=== PATIENT | male | born 1960 | race Caucasian/White ===

== ENCOUNTER → 2020-05-14 16:47 | Outpatient (CLI) | payer MEDICARE, MEDICAID, SELFPAY ==
[2020-05-16 15:00] LABS: Covid-19 Nasal PCR Sendout Lex Not Detected
== END ==
PROVIDERS: PCP Family Medicine; Visit Provider Family Medicine
DX: Z03.818 Encounter for observation for suspected exposure to other biological agents ruled out (principal)
CPT/HCPCS: U0004

== ENCOUNTER 2020-05-17 14:49 | Emergency (ER) | payer MEDICARE, MEDICAID, SELFPAY ==
[2020-05-17 14:53] VITALS: BP 133/76; PULSE 110; RESP 18; TEMP 36.6; O2SAT 94; BMI 28.5
--- NOTE | 2020-05-17 15:22 | HMH.EDGENADL ---
ED Disposition Clinical Impression: Community acquired pneumonia Qualifiers: Laterality: left Lung location: lower lobe of lung Qualified Code(s): J18.9 - Pneumonia, unspecified organism Disposition: Home, Self-Care Condition on Discharge: Good Instructions: Pneumonia-Adult Additional Instructions: You were seen on an emergency basis. It is very important that you follow up with your primary care provider and/or specialist as we discussed within 2 days. All labs and imaging were obtained and interpreted here to rule out life threatening emergencies, but your final results should be reviewed by your primary doctor at your follow up appointment. Please return to the emergency department if any of your symptoms worsen, or if they do not improve as we discussed. Prescriptions: Doxycycline Hyclate [Doxycycline 100mg Capsule] 100 mg PO BID 10 Days #20 cap Prescription Printed Referrals: Annalise Carter [Primary Care Provider] - - Critical Care Critical Care Time: No Attestation: On 05/17/20, the high probability of a clinically significant, sudden or life threatening deterioration of the following system(s) required my full and direct attention, intervention and personal management. The time I documented below is in addition to time spent performing reported procedures but includes the following listed in this critical care notation. Medical Decision Making - Medical Records Medical records reviewed: Yes: I reviewed the patient's medical records. - Elliott Inquiry Pt receiving controlled substance: No Vital Signs: 05/17/20 14:53 Temperature 97.8 F Temperature Source Oral Pulse Rate [Right Radial] 110 H Respiratory Rate 18 Blood Pressure [Right Arm] 133/76 Blood Pressure Mean [Right Arm] 95 Blood Pressure Source [Right Arm] Automatic Cuff Blood Pressure Position [Right Arm] Sitting 02 Sat by Pulse Oximetry 94 L Oxygen Delivery Method Room Air - Lab Data Lab results reviewed: Yes: I reviewed the patient's lab results. Lab Results 05/17/20 15:13: Urine Color Yellow, Urine Appearance Clear, Urine pH 6.0, Ur Specific Flasher 1.025, Urine Protein Negative, Urine Glucose (UA) 3+, Urine Ketones 1+, Urine Blood Negative, Urine Nitrate Negative, Urine Bilirubin Negative, Urine Urobilinogen 1.0, Ur Leukocyte Esterase Negative, Urine RBC None, Urine WBC None, Ur Squamous Epith Cells Occasional, Amorphous Sediment Trace, Urine Bacteria None 05/17/20 15:40: WBC 5.6, RBC 4.77, Hgb 14.8, Hct 43.0, MCV 90.2, MCH 31.0, MCHC 34.4, RDW 13.4, Plt Count 211, MPV 8.0, Neut % (Auto) 74.2, Lymph % (Auto) 17.5, [place] % (Auto) 5.5, Eos % (Auto) 1.9, Baso % (Auto) 0.8, Neut # (Auto) 4.1, Lymph # (Auto) 1.0, [place] # (Auto) 0.3, Eos # (Auto) 0.1, Baso # (Auto) 0.0 05/17/20 15:40: Sodium 139, Potassium 4.0, Chloride 103, Carbon Dioxide 24, Anion Gap 16.0 H, BUN 14, Creatinine 0.90, Estimated Creat Clear 110, Estimated GFR 86, Est GFR ( Amer) 104, Glucose 146 H, Calcium 8.9, Total Bilirubin 0.4, AST 40, ALT 60, Alkaline Phosphatase 94, Total Protein 7.4, Albumin 4.1, Globulin 3.3 H, Albumin/Globulin Ratio 1.2 05/17/20 15:40: Influenza Type A Ag Negative, Influenza Type B Ag Negative 05/17/20 15:40: Group A Strep Rapid Negative Result diagrams: 05/17/20 15:40 05/17/20 15:40 Orders (Tests/Meds): ED MEDICATIONS Discontinued Medications Generic Name Dose Route Start Last Admin Trade Name Freq PRN Reason Stop Dose Admin Lactated Ringer's 500 mls @ 999 mls/hr 05/17/20 15:28 05/17/20 15:47 Lactated Ringer's 1000 Ml Bag IV 05/17/20 15:58 999 mls/hr .Q31M ONE Administration ORDERS Category Date Time Status Covid-19 Nasal PCR Sendout Eric Stat Lab 05/17/20 15:40 Received Strep Screen Confirmation Stat Micro 05/17/20 15:40 Received Medical Decision Narrative: 59-year-old male presenting with malaise, cough, fever. Nontoxic, afebrile here, hemodynamically stable. Was tachycardic on arrival but responsive
[2020-05-17 15:31] LABS: Microscopic, Urine URINE MICROSCOPIC (MICROSCOPIC)
[2020-05-17 15:34] LABS: Appearance,Urine CLEAR (Clear); Bilirubin,Urine Negative (Negative); Blood, Urine Negative (Negative); Color,Urine YELLOW (Yellow); Glucose,Urine (UA) 3+ (Negative); Ketones,Urine 1+ (Negative); Leukocyte Esterase,Urine Negative (Negative); Nitrate,Urine Negative (Negative); Protein,Urine Negative (Negative); Specific Gravity, Urine 1.025 (1.005-1.030)
[2020-05-17 15:40] LABS: Amorphous Sediment,Urine Trace /lpf; Squamous Epithelial Cell,Urine Occasional #/hpf (0-5)
--- NOTE | 2020-05-17 16:04 | XR_ITS ---
PROCEDURE: XR CHEST PORTABLE CLINICAL HISTORY: covid rule out COMPARISON: No exams were available for comparison FINDINGS: A. there is a somewhat subtle hazy opacity left perihilar region and partially silhouetting the left heart border. A minimal infiltrate left perihilar region and lingula cannot be entirely excluded. Would be helpful to have a follow-up of PA and lateral chest if possible for better evaluation. The left upper lung field and right lung rosado are clear. There is borderline cardiomegaly however is no pulmonary congestion and there is no pleural fluid. 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 IMPRESSION: Possible left perihilar and or lingular infiltrate versus atelectasis consider a follow-up PA and lateral chest for better evaluation Dictated by: Dr. Tarik Cochran MD 05/17/2020 16:54 Dr. Tarik Cochran MD in [place] 05/17/2020 16:54
[2020-05-17 16:41] LABS: Basophils % 0.8 % (0.1-2.0); Eosinophils # 0.1 K/mm3 (0.0-0.4); Eosinophils % 1.9 % (0.1-12.0); Hemoglobin 14.8 g/dL (14.1-18.0); Lymphocytes % 17.5 % (10-50); Mean Corpuscular HGB Conc 34.4 g/dL (31.8-35.4); Mean Corpuscular Volume 90.2 fl (80-94); Monocytes # 0.3 K/mm3 (0.1-1.0); Monocytes % 5.5 % (1.7-9.3); Neutrophils # 4.1 K/mm3 (1.8-7.8); Neutrophils % 74.2 % (37.0-80.0); Platelet Count 211 K/mm3 (142-424); Red Blood Count 4.77 M/mm3 (4.60-6.20); Red Cell Distribution Width 13.4 % (11.5-17.5); White Blood Count 5.6 K/mm3 (4.8-10.8)
[2020-05-17 16:42] LABS: Chloride 103 mmol/L (98-107)
[2020-05-17 16:43] LABS: Sodium 139 mmol/L (136-145)
[2020-05-17 16:45] LABS: Alanine Aminotransferase 60 U/L (12-78); Alkaline Phosphatase 94 U/L (38-126); Aspartate Amino Transferase 40 U/L (17-59); Bilirubin,Total 0.4 mg/dl (0.2-1.3); Blood Urea Nitrogen 14 mg/dl (9-20); Creatinine Clearance Estimated 110 mL/min (50-200); Estimated Glomerular Filt Rate 86 ml/min (>60); GFR (African American) 104 ML/MIN (>60); Strep Scrn Group A (Rapid) Negative (Negative)
[2020-05-17 16:46] LABS: Albumin Level 4.1 g/dl (3.5-5.0); Albumin/Globulin Ratio 1.2 (1.1-1.8); Calcium 8.9 mg/dl (8.4-10.2); Carbon Dioxide 24 mmol/L (22.0-30.0); Globulin 3.3 g/dL (1.3-3.2); Glucose 146 mg/dl (74-100); Total Protein,Serum 7.4 g/dl (6.3-8.2)
[2020-05-17 17:08] VITALS: BP 121/73; PULSE 74; RESP 18; TEMP 36.8; O2SAT 97
[2020-05-19 13:21] LABS: Covid-19 Nasal PCR Sendout Lex Positive
--- NOTE | 2020-05-19 13:26 | PC.NURSE ---
attempted to call pt, no answer, voicemail left.
== END 2020-05-17 17:12 | disposition home or self-care (01) ==
PROVIDERS: Emergency Provider Physician Assistant; PCP Family Medicine
DX: J18.9 Pneumonia, unspecified organism (principal); U07.1 COVID-19; I25.10 Atherosclerotic heart disease of native coronary artery without angina pectoris; E11.9 Type 2 diabetes mellitus without complications; Z88.5 Allergy status to narcotic agent; Z79.899 Other long term (current) drug therapy
CPT/HCPCS: 71045; 80053; 81001; 85025; 87275; 87276; 87430; 96365; 99283; U0004

== ENCOUNTER 2020-11-07 10:43 | Emergency (ER) | payer MEDICARE, SELFPAY ==
[2020-11-07 10:50] VITALS: BP 113/61; PULSE 67; RESP 20; TEMP 36.9; O2SAT 97; BMI 31.0
[2020-11-07 11:23] LABS: UTC Influenza A Antigen Negative (Negative)
[2020-11-07 11:24] LABS: UTC Influenza B Antigen Negative (Negative)
--- NOTE | 2020-11-07 11:25 | HMH.EDUTC ---
[facility] [place] Disposition Clinical Impression: COVID-19 virus test result unknown Disposition: Home, Self-Care Condition on Discharge: Good Instructions: DI for COVID-19 (Suspected or Confirmed ), Preventing the Spread of Coronavirus Discharge Instructions Additional Instructions: No sign of a bacterial infection. Likely viral. Viruses can take 7-14 days to run their course. Nasal saline and bulb syringe or nose Jess to remove nasal drainage to help with nasal congestion. Hard to eat, drink, sleep with nasal congestion so important to keep this cleaned out. Monitor temp. Tylenol or Motrin as needed for pain or fever Encourage fluids, water, Gatorade, Powerade, Pedialyte if infant/toddler/child Warm salt water gargles Warm fluids Sore throat lozenges Sleep elevated Humidifier/vaporizer Your covid swab was sent. Be sure you follow-up in 2-3 days if no improvement so we can review the results and treat if necessary Follow-up immediately for new or worsening symptoms or no noticeable improvement over the next 48-72 hours. Referrals: Annalise Carter [Primary Care Provider] - Time of Disposition: 11:34 Medical Decision Making - Elliott Inquiry Pt receiving controlled substance: No Vital Signs: 11/07/20 10:50 Temperature 98.5 F Temperature Source Oral Pulse Rate [Right Brachial] 67 Respiratory Rate 20 Blood Pressure [Right Arm] 113/61 Blood Pressure Mean [Right Arm] 78 Blood Pressure Source [Right Arm] Automatic Cuff Blood Pressure Position [Right Arm] Sitting 02 Sat by Pulse Oximetry 97 Oxygen Delivery Method Room Air - Lab Data Lab Results 11/07/20 11:10: Influenza Type A Ag Negative, Influenza Type B Ag Negative Orders (Tests/Meds): ORDERS Category Date Time Status Covid-19 Nasal PCR ([facility]) Routine Lab 11/07/20 11:00 Received [facility] [place] HPI - General Chief complaint: [facility] Stated complaint: headache,fever,cough,chills,achey Time Seen by Provider: 11/07/20 11:25 Mode of Arrival: Ambulatory Source of Information: Patient Limitations: No Limitations Description of Symptoms (Recalled from Triage Doc. by RN): PATIENT C/O CHILLS, FEVER, BODY ACHES, AND HEADACHE X 4-5 DAYS. STATES HE HAD COVID IN 2019 HEENT Symptoms (Recalled from RN notes): Yes Resp Symptoms (Recalled from RN notes): No Skin Symptoms (Recalled from RN notes): No MS Symptoms (Recalled from RN notes): No Functional Status (Recalled from RN notes): WNL - History of Present Illness Provider Complaint: 59 yr old male presents for cough, clear/yellow nasal drainage, body aches,chills, and upset staomach for 4-5 days. pt states he had covid in may and this feels like the flu. 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/flu - Related Data Home Medications Medication Instructions Recorded Confirmed Aspirin [Aspirin 81mg chewable 81 mg PO DAILY 11/07/20 11/07/20 tab] Atorvastatin Calcium [Lipitor 20mg 20 mg PO HS 11/07/20 11/07/20 Tab] Empagliflozin [Jardiance] 10 mg PO DAILY 11/07/20 11/07/20 Famotidine [Pepcid 20mg Tablet] 20 mg PO DAILY 11/07/20 11/07/20 Tamsulosin HCl [Flomax 0.4mg 0.4 mg PO HS 11/07/20 11/07/20 capsule] Ticagrelor [Brilinta 90mg 90 mg PO BID 11/07/20 11/07/20 Tablet] lisinopriL [Lisinopril 5mg 5 mg PO DAILY 11/07/20 11/07/20 Tablet] Allergies Allergy/AdvReac Type Severity Reaction Status Date / Time morphine Allergy Severe Unknown Verified 05/17/20 15:27 allergy reaction - Worker's Comp Is this a Worker's Comp case?: No [facility] History - Hepatitis A Screen Drug use history?: No High risk sexual behaviors?: No History of sexually transmitted infection?: No Currently employed?: No Childcare worker?: No Do you have indoor plumbing?: Yes Do you have electricity?: Yes Attestation statement:: This patient has been screened for Hepatitis A risk factors. I have reviewed the patient's past medical his
[2020-11-07 11:35] VITALS: BP 113/61; PULSE 67; RESP 20; TEMP 36.9; O2SAT 97
== END 2020-11-07 11:37 | disposition home or self-care (01) ==
PROVIDERS: Emergency Provider Nurse Practitioner Family; PCP Family Medicine
DX: Z20.822 Contact with and (suspected) exposure to COVID-19 (principal); R50.9 Fever, unspecified; R51.9 Headache, unspecified; E11.9 Type 2 diabetes mellitus without complications; Z88.5 Allergy status to narcotic agent; Z79.899 Other long term (current) drug therapy
CPT/HCPCS: G0463; 87804; 99202; U0003

== ENCOUNTER 2021-09-19 12:25 | Emergency (ER) | payer MEDICARE, SELFPAY ==
[2021-09-19 14:00] VITALS: BP 133/70; PULSE 81; RESP 19; TEMP 37; O2SAT 97; BMI 33.2
--- NOTE | 2021-09-19 14:11 | HMH.EDUTC ---
[facility] [place] Disposition Clinical Impression: COVID-19 virus test result unknown Disposition: Home, Self-Care Condition on Discharge: Good Instructions: COVID-19: Testing and Tracing Additional Instructions: covid swab was sent to lab, call tomorrow for results. self isolate until test results are known to be negative No sign of a bacterial infection. Likely viral. Viruses can take 7-14 days to run their course. Nasal saline and bulb syringe or nose Jess to remove nasal drainage to help with nasal congestion. Hard to eat, drink, sleep with nasal congestion so important to keep this cleaned out. Monitor temp. Tylenol or Motrin as needed for pain or fever Encourage fluids, water, Gatorade, Powerade, Pedialyte if /toddler/child Warm salt water gargles Warm fluids Sore throat lozenges Sleep elevated Humidifier/vaporizer Follow-up immediately for new or worsening symptoms or no noticeable improvement over the next 48-72 hours. Referrals: Annalise Carter [Primary Care Provider] - Time of Disposition: 14:13 Medical Decision Making - Elliott Inquiry Pt receiving controlled substance: No Orders (Tests/Meds): ORDERS Category Date Time Status Covid-19 Nasal PCR ([facility]) Routine Lab 09/19/21 14:08 Ordered [facility] [place] HPI - General Chief complaint: Urgent Treatment Center Stated complaint: weakness, cough, h/a, runny nose Time Seen by Provider: 09/19/21 14:11 Mode of Arrival: Ambulatory Source of Information: Patient Limitations: No Limitations - History of Present Illness Provider Complaint: 60 yr old male presents for covid test. pt states he has a runny nose,sore throat, body aches. denies fever. pt states 3 days ago was around someone ill - Related Data Home Medications Medication Instructions Recorded Confirmed Aspirin [Aspirin 81mg chewable 81 mg PO DAILY 11/07/20 11/07/20 tab] Atorvastatin Calcium [Lipitor 20mg 20 mg PO HS 11/07/20 11/07/20 Tab] Empagliflozin [Jardiance] 10 mg PO DAILY 11/07/20 11/07/20 Famotidine [Pepcid 20mg Tablet] 20 mg PO DAILY 11/07/20 11/07/20 Tamsulosin HCl [Flomax 0.4mg 0.4 mg PO HS 11/07/20 11/07/20 capsule] Ticagrelor [Brilinta 90mg 90 mg PO BID 11/07/20 11/07/20 Tablet] lisinopriL [Lisinopril 5mg 5 mg PO DAILY 11/07/20 11/07/20 Tablet] Allergies Allergy/AdvReac Type Severity Reaction Status Date / Time morphine Allergy Severe Unknown Verified 05/17/20 15:27 allergy reaction [facility] History - Hepatitis A Screen Attestation statement:: This patient has been screened for Hepatitis A risk factors. I have reviewed the patient's past medical history: Yes Medical History: Reports:: Cancer, Diabetes Mellitus Type 2 Laterality Cases: Bilateral: Tonsillectomy - Social History Smoking Status: Never smoker Alcohol Intake: never Occupational Status: other ROS Obtained: Yes Systems reviewed as appropriate & no additional complaints - Constitutional Constitutional: Reports system reviewed and no additional complaints, except as docu, Reports body ache, Reports chills, Denies fever(s) - Eyes Eyes: Reports system reviewed and no additional complaints, except as docu, Denies blurry vision - ENT Ears, Nose, Mouth, and Throat: Reports system reviewed and no additional complaints, except as docu, Reports nasal congestion, Reports sore throat - Cardiovascular Cardiovascular: Reports system reviewed and no additional complaints, except as docu, Denies chest pain - Respiratory Respiratory: Reports system reviewed and no additional complaints, except as docu, Denies cough - Gastrointestinal Gastrointestingal: Reports: system reviewed and no additional complaints, except as docu. Denies: diarrhea - Genitourinary Male Genitourinary: Reports system reviewed and no additional complaints, except as docu - Musculoskeletal Musculoskeletal: Reports system reviewed and no additional complaints, except as docu, Denies joint pain - In
[2021-09-19 14:13] VITALS: BP 133/70; PULSE 81; RESP 19; TEMP 37; O2SAT 97
--- NOTE | 2021-09-20 09:24 | PC.NURSE ---
PATIENT NOTIFIED OF POSITIVE COVID RESULT AT THIS TIME
== END 2021-09-19 14:20 | disposition home or self-care (01) ==
PROVIDERS: Emergency Provider Nurse Practitioner Family; PCP Family Medicine
DX: U07.1 COVID-19 (principal); E11.9 Type 2 diabetes mellitus without complications
CPT/HCPCS: G0463; 99202; C9803; U0003; U0005

== ENCOUNTER 2023-11-21 12:41 | Outpatient (RCR) | payer MEDICARE, SELFPAY | END 2024-01-05 14:00 | disposition home or self-care (01) | LOC: PT 12:41 | PROVIDERS: Visit Provider Internal Medicine Cardiovascular Disease | DX: I25.10 Atherosclerotic heart disease of native coronary artery without angina pectoris (principal); Z95.5 Presence of coronary angioplasty implant and graft | CPT/HCPCS: 93798 ==

== ENCOUNTER 2024-05-31 19:57 | Emergency (ER) | payer MEDICARE, SELFPAY ==
[2024-05-31 19:58] VITALS: BP 108/72; PULSE 96; RESP 18; TEMP 37.1; O2SAT 96; BMI 29.2
[2024-05-31 20:57] LABS: Coronavirus 19, PCR Not Detected (NotDetected); Influenza A, PCR Not Detected (NotDetected); Influenza B, PCR Not Detected (NotDetected)
--- NOTE | 2024-05-31 20:59 | ED_ITS ---
Discharge Plan Disposition Patient Disposition: Home, Self-Care Prescriptions Prescriptions: No Action atorvastatin 20 MG tablet 20 mg PO HS famotidine 20 MG tablet 20 mg PO DAILY tamsulosin 0.4 MG capsule 0.4 mg PO HS aspirin 81 MG tablet,chewable 81 mg PO DAILY lisinopril 5 MG tablet 5 mg PO DAILY ticagrelor 90 MG tablet 90 mg PO BID empagliflozin 10 MG tablet 10 mg PO DAILY Patient Comments: TAKE 1 TABLET BY MOUTH EVERY DAY Referrals Follow up/Referrals: Annalise Carter [Primary Care Provider] - See instructions Activity Restrictions/Add. Instructions Additional Instructions/Restrictions: Your symptoms are consistent with a viral syndrome. This would require [id number] medication management and increase fluid intake. You can follow-up the results of your viral swab on [facility] for like to be contacted with the results. Given the length of your symptoms, you would not be eligible for specific COVID or flu medications. Sure that you stay adequately hydrated. Take Tylenol every 6 hours as needed for headache or aches/pains. Please follow up with your primary care provider in 2-3 days. Please return to ED if your symptoms worsen, change in location, change in severity, new symptoms develop or if you become concerned for your health. Clinical Impressions Clinical Impression: Acute viral syndrome Instructions Patient Instructions: DI for Viral Syndrome Print Language Print Language: [place] Discharge ED Provider: Chanelle Aaron General Adult HPI General Chief complaint: Upper Respiratory Infection Stated complaint: body aches, HAINES, weak Time Seen by Provider: 05/31/24 20:12 Mode of Arrival: Ambulatory Source of Information: Patient Limitations: No Limitations Description of Symptoms (Recalled from ER Triage Doc. by RN): Patient reports body aches, dry mouth, and congestion. Patient reports he had a fever approximately 3 days ago but no fever today. Patient reports that he had 2 episodes of soft stool yesterday, but not today. Patient reports a mild cough and home covid test was negative. Patient denies nausea and vomiting. Denies abominal pain. Denies chest pain and shortness of breath. History of Present Illness HPI narrative: Saad Gregg is a 63 y/o male presenting with multiple complaints. Related Data Home Medications ?Medication ?Instructions ?Recorded ?Confirmed aspirin 81 mg chewable tablet 81 mg PO DAILY Heart disease 11/07/20 11/07/20 atorvastatin 20 mg tablet 20 mg PO HS Cholesterol 11/07/20 11/07/20 empagliflozin 10 mg tablet 10 mg PO DAILY Diabetes 11/07/20 11/07/20 famotidine 20 mg tablet 20 mg PO DAILY GERD 11/07/20 11/07/20 lisinopril 5 mg tablet 5 mg PO DAILY Hypertension 11/07/20 11/07/20 tamsulosin 0.4 mg capsule 0.4 mg PO HS PROSTATE 11/07/20 11/07/20 ticagrelor 90 mg tablet 90 mg PO BID Heart disease 11/07/20 11/07/20 Allergies Allergy/AdvReac Type Severity Reaction Status Date / Time morphine Allergy Severe Unknown Verified 05/17/20 15:27 allergy reaction [facility] Disclaimer: The information contained in this section may have been updated after the patient was seen, as this information can be updated by other users. Social History Smoking Status: Never smoker alcohol intake: never current occupational status: other Travel in the last 8 weeks: None ROS Obtained: Yes All systems reviewed & no additional complaints except as documented Physical Exam General General appearance: alert and in no apparent distress Head Head exam: atraumatic Eye Eye exam: Present EOMI; Absent scleral icterus Respiratory Respiratory exam: Present normal lung sounds bilaterally Cardiovascular Cardiovascular exam: Present regular rate and normal rhythm Abdominal Exam Abdominal exam: Present soft; Absent distention or tenderness Extremities Exam Extremities exam: Present full ROM; Absent tenderness or edema Neurological Exam Neurological exam: Present alert and oriented X3 Skin Skin exam: Present warm and dry Medical Decision Making Medical Records Screening: Per USPSTF and CDC recommendations, given the prevalence of disease in our region, it is our hospital?s policy to screen for HIV and viral Hepatitis for all patients aged 18 and over and those with ongoing risk factors. Elliott Inquiry Pt receiving controlled substance: No Vital Signs: 05/31/24 19:58 05/31/24 21:00 05/31/24 21:39 Temperature 98.7 F 98.5 F Temperature Source Oral Oral Pulse Rate 97 H 92 H Pulse Rate [Left Radial] 96 H Respiratory Rate 18 17 Blood Pressure 118/68 119/76 Blood Pressure [Right Arm] 108/72 L Blood Pressure Mean [Right Arm] 84 Blood Pressure Source Automatic Cuff Blood Pressure Source [Right Arm] Automatic Cuff Blood Pressure Position Sitting 02 Sat by Pulse Oximetry 96 91 L Oxygen Delivery Method Room Air Room Air Lab Data Lab Results 05/31/24 20:45: SARS-CoV-2 (PCR) Not detected, Influenza A Untype (PCR) Not detected, Influenza Type B (PCR) Not detected Orders (Tests/Meds): ORDERS Category Date Time Status Rapid PCR Covid and Flu A/B Stat Lab 05/31/24 20:45 Completed Medical Decision Narrative: Patient is a 63-year-old male who presents with multiple complaints. Differential diagnosis includes was not limited to, viral syndrome, pneumonia, COPD, electrolyte abnormality, among others. Patient's history and physical exam most consistent with acute viral syndrome. Patient's vital signs are within normal limits and his physical exam is unremarkable. Patient swab for flu/COVID and discharged prior to results being completed. Patient's symptoms have been present for longer than would be appropriate to treat with Paxlovid or other antiviral medications. Patient was in agreement with this plan. Patient vies to follow-up with his PCP. Patient discharged in stable condition. Chanelle Aaron MD PGY-3, Emergency Medicine Critical Care Critical Care Time Critical Care Time: No
[2024-05-31 21:00] VITALS: BP 118/68; PULSE 97; O2SAT 91
[2024-05-31 21:39] VITALS: BP 119/76; PULSE 92; RESP 17; TEMP 36.9; O2SAT 96
== END 2024-05-31 21:42 | disposition home or self-care (01) ==
PROVIDERS: Emergency Provider Student in an Organized Health Care Education/Training Program; PCP Family Medicine
DX: J06.9 Acute upper respiratory infection, unspecified (principal); R51.9 Headache, unspecified; R53.1 Weakness; R09.81 Nasal congestion; R05.9 Cough, unspecified; B34.9 Viral infection, unspecified
CPT/HCPCS: 87636; 99283

== ENCOUNTER 2024-06-06 14:28 | Emergency (ER) | payer MEDICARE, SELFPAY ==
[2024-06-06] VITALS (8 sets, daily range): BP systolic 102–123; BP diastolic 60–76; PULSE 77–89; RESP 16–18; TEMP 37; O2SAT 95–99; BMI 21.7
--- NOTE | 2024-06-06 14:34 | ED_ITS ---
Discharge Plan Disposition Patient Disposition: Home, Self-Care Condition: Good Prescriptions Prescriptions: No Action atorvastatin 20 MG tablet 20 mg PO HS famotidine 20 MG tablet 20 mg PO DAILY tamsulosin 0.4 MG capsule 0.4 mg PO HS aspirin 81 MG tablet,chewable 81 mg PO DAILY lisinopril 5 MG tablet 5 mg PO DAILY ticagrelor 90 MG tablet 90 mg PO BID empagliflozin 10 MG tablet 10 mg PO DAILY Patient Comments: TAKE 1 TABLET BY MOUTH EVERY DAY Referrals Follow up/Referrals: Annalise Carter [Primary Care Provider] - See instructions Activity Restrictions/Add. Instructions Additional Instructions/Restrictions: Please follow-up with your primary care provider tomorrow, may need to change her insulin regimen/diabetic medications. Return to the emergency department with any new or worsening signs or symptoms. Continue with good p.o. intake with oral fluids and solid foods. Clinical Impressions Clinical Impression: Non-ketotic hyperglycinemia Instructions Patient Instructions: DI for Hyperglycemia -- Adult Print Language Print Language: Malay Discharge ED Provider: William Bhakta General Adult HPI <LAWRENCE Irvin - Last Filed: 06/06/24 18:02> General Chief complaint: Recheck/Abnormal Lab/Rx Stated complaint: sugar reading 513 Time Seen by Provider: 06/06/24 14:35 Mode of Arrival: Ambulatory Source of Information: Patient and Medical Record Limitations: No Limitations History of Present Illness HPI narrative: 63-year-old male presents to the emergency department for elevated blood glucose, patient states his blood sugars have been running around 400 range, the last 2 days, patient was actually seen in the emergency department last week for a viral URI, results negative for COVID-19 and influenza A/influenza B, he was not placed on any glucocorticoids, patient has been taking his medications as prescribed, he is insulin-dependent diabetic, has been taking his Lantus as prescribed, it is not , patient is many having adequate intake and eating and drinking appropriately, he denies any fever chills chest pain shortness of breath, nausea, vomiting, abdominal pain, constipation, diarrhea, denies any urinary type symptomatology such as decreased urinary frequency, denies any hematemesis, hematochezia or melena, patient is a non-smoker, denies any alcohol or drug use. Patient does admit to polydipsia. Patient has past medical history consistent with type 2 diabetes insulin-dependent as well as metformin,, hyperlipidemia, GERD, hypertension, coronary artery disease on antiplatelet therapy. Triage vitals are grossly unremarkable. Onset (ago): day(s) Related Data Home Medications ?Medication ?Instructions ?Recorded ?Confirmed aspirin 81 mg chewable tablet 81 mg PO DAILY Heart disease 11/07/20 11/07/20 atorvastatin 20 mg tablet 20 mg PO HS Cholesterol 11/07/20 11/07/20 empagliflozin 10 mg tablet 10 mg PO DAILY Diabetes 11/07/20 11/07/20 famotidine 20 mg tablet 20 mg PO DAILY GERD 11/07/20 11/07/20 lisinopril 5 mg tablet 5 mg PO DAILY Hypertension 11/07/20 11/07/20 tamsulosin 0.4 mg capsule 0.4 mg PO HS PROSTATE 11/07/20 11/07/20 ticagrelor 90 mg tablet 90 mg PO BID Heart disease 11/07/20 11/07/20 Allergies Allergy/AdvReac Type Severity Reaction Status Date / Time morphine Allergy Severe Unknown Verified 05/17/20 15:27 allergy reaction PFS <LAWRENCE Irvin - Last Filed: 06/06/24 18:02> [facility] Disclaimer: The information contained in this section may have been updated after the patient was seen, as this information can be updated by other users. Social History Smoking Status: Never smoker alcohol intake: never current occupational status: other Travel in the last 8 weeks: None <LAWRENCE Irvin - Last Filed: 06/06/24 18:02> ROS Obtained: Yes All systems reviewed & no additional complaints except as documented Physical Exam <LAWRENCE Irvin - Last Filed: 06/06/24 18:02> General General appearance: alert and in no apparent distress Head Head exam: atraumatic and normocephalic Eye Eye exam: Present PERRL and EOMI ENT ENT exam: Present mucous membranes moist Neck Neck exam: Present normal inspection Chest Chest inspection: Present normal inspection and symmetric chest wall rise Respiratory Respiratory exam: Present normal lung sounds bilaterally; Absent respiratory distress Cardiovascular Cardiovascular exam: Present regular rate and normal rhythm Abdominal Exam Abdominal exam: Present soft; Absent distention, tenderness, guarding, rebound or rigidity Extremities Exam Extremities exam: Present normal inspection Neurological Exam Neurological exam: Present alert and oriented X3 Psychiatric Psychiatric exam: Present normal affect Skin Skin exam: Present warm and dry Medical Decision Making <LAWRENCE Irvin - Last Filed: 06/06/24 18:02> Medical Records Medical records reviewed: Yes I reviewed the patient's medical records. Screening: Per USPSTF and CDC recommendations, given the prevalence of disease in our region, it is our hospital?s policy to screen for HIV and viral Hepatitis for all patients aged 18 and over and those with ongoing risk factors. Elliott Inquiry Pt receiving controlled substance: No Vital Signs: 06/06/24 14:29 06/06/24 15:00 06/06/24 15:30 Temperature 98.6 F Temperature Source Oral Pulse Rate 86 87 Pulse Rate [Right Radial] 89 Respiratory Rate 18 18 Blood Pressure 102/68 L 116/65 Blood Pressure [Right Arm] 120/64 Blood Pressure Mean 77 81 Blood Pressure Mean [Right Arm] 82 Blood Pressure Source Blood Pressure Source [Right Arm] Automatic Cuff Blood Pressure Position Blood Pressure Position [Right Arm] Sitting 02 Sat by Pulse Oximetry 96 95 96 Oxygen Delivery Method Room Air 06/06/24 16:00 06/06/24 16:30 06/06/24 17:00 Temperature Temperature Source Pulse Rate 84 80 81 Pulse Rate [Right Radial] Respiratory Rate 16 16 16 Blood Pressure 123/76 121/66 120/72 Blood Pressure [Right Arm] Blood Pressure Mean 91 84 80 Blood Pressure Mean [Right Arm] Blood Pressure Source Blood Pressure Source [Right Arm] Blood Pressure Position Blood Pressure Position [Right Arm] 02 Sat by Pulse Oximetry 95 95 96 Oxygen Delivery Method 06/06/24 17:15 06/06/24 18:21 Temperature 98.6 F Temperature Source Oral Pulse Rate 80 77 Pulse Rate [Right Radial] Respiratory Rate 18 Blood Pressure 120/72 114/60 Blood Pressure [Right Arm] Blood Pressure Mean Blood Pressure Mean [Right Arm] Blood Pressure Source Automatic Cuff Blood Pressure Source [Right Arm] Blood Pressure Position Supine Blood Pressure Position [Right Arm] 02 Sat by Pulse Oximetry 95 Oxygen Delivery Method Room Air Room Air Lab Data Lab results reviewed: Yes I reviewed the patient's lab results. Lab Results 06/06/24 14:31: VBG pH 7.42 H, VBG pCO2 36.4, VBG pO2 103.7 H, VBG HCO3 22.9 L, VBG Total CO2 24.0, VBG O2 Saturation 97.9 H, VBG Base Excess -1.6, VBG Lactic Acid 3.4 H 06/06/24 14:33: Urine Color Yellow, Urine Appearance Clear, Urine pH 6.0, Ur Specific [place] <= 1.005, Urine Protein Negative, Urine Glucose (UA) 3+, Urine Ketones Negative, Urine Blood Negative, Urine Nitrate Negative, Urine Bilirubin Negative, Urine Urobilinogen 0.2, Ur Leukocyte Esterase Negative, Urine WBC Occasional, Ur Squamous Epith Cells Occasional 06/06/24 14:40: WBC 7.7, RBC 4.97, Hgb 14.7, Hct 46.2, MCV 93.0, MCH 29.6, MCHC 31.8, RDW 14.6, Plt Count 276, MPV 8.8, Neut % (Auto) 62.5, Lymph % (Auto) 28.9, [place] % (Auto) 6.3, Eos % (Auto) 1.3, Baso % (Auto) 1.1, Neut # (Auto) 4.8, Lymph # (Auto) 2.2, [place] # (Auto) 0.5, Eos # (Auto) 0.1, Baso # (Auto) 0.1, Sodium 135 L, Potassium 4.8, Chloride 104, Carbon Dioxide 23, Anion Gap 12.8, BUN 20, Creatinine 0.90, Estimated Creat Clear 69, Estimated GFR 85, Est GFR ( Amer) 102, Glucose 408 H*, Lactate 2.4 H, Calcium 9.2, Magnesium 1.4 L, Total Bilirubin 0.6, AST 32, ALT 34, Alkaline Phosphatase 161 H, Troponin I < 0.01, Total Protein 7.4, Albumin 4.2, Globulin 3.2, Albumin/Globulin Ratio 1.3, HIV 1&2 Antibody Rapid Nonreactive 06/06/24 14:40 06/06/24 14:40 Orders (Tests/Meds): ED MEDICATIONS Discontinued Medications Generic Name Dose Route Start Last Admin Trade Name Freq PRN Reason Stop Dose Admin Magnesium Sulfate 2 gm in 50 mls @ 50 mls/hr 06/06/24 15:17 06/06/24 15:22 Magnesium Sulfate 2gm/50ml Premix IV 06/06/24 16:16 50 mls/hr ONCE ONE Administration Lactated Ringer's 1,000 mls @ 999 mls/hr 06/06/24 15:17 06/06/24 15:22 Lactated Ringer's 1000 Ml Bag IV 06/06/24 16:17 999 mls/hr .Q1H1M ONE Administration Lactated Ringer's 1,000 mls @ 999 mls/hr 06/06/24 17:00 06/06/24 17:02 Lactated Ringer's 1000 Ml Bag IV 06/06/24 18:00 999 mls/hr .Q1H1M ONE Administration Insulin Human Regular 7 unit 06/06/24 15:18 06/06/24 15:21 Insulin Human Regular 100 Units/Ml 10ml Vial 0.1 unit/kg (7 unit) 06/06/24 15:19 7 unit IV Administration ONCE ONE ORDERS Category Date Time Status XR chest portable Stat Exams 06/06/24 14:41 Completed Complete Blood Count Auto Diff Stat Lab 06/06/24 14:40 Completed Comprehensive Metabolic Panel Stat Lab 06/06/24 14:40 Completed HIV (1&2) Antibody Rapid Stat Lab 06/06/24 14:40 Completed Hep C Ab with Reflex to RNA Stat Lab 06/06/24 14:40 Received Lactic Acid Stat Lab 06/06/24 14:40 Completed Magnesium Stat Lab 06/06/24 14:40 Completed POC Glucose,Bedside Stat Lab 06/06/24 14:32 Ordered Troponin I Stat Lab 06/06/24 14:40 Completed Urinalysis and Microscopic Stat Lab 06/06/24 14:33 Completed Venous Blood Gas Stat RT 06/06/24 14:31 Completed Medical Decision Narrative: 63-year-old male presents to the emergency department with hyperglycemia, different diagnose include not limited to Nonketotic hyperglycemia, hyperosmolar hyperglycemic state, DKA, cardiac arrhythmia, electrolyte disturbance, dehydration, medical noncompliance. I discussed this patient's case with the attending physician Dr. Nowak and Dr. Bhakta Will obtain CBC CMP, hep C antibody, HIV antibody, lactic acid low, needs a level, POC glucose, urinalysis, VBG, EKG and chest x-ray to further evaluate/characterization. I reviewed the patient's EKG along with the attending physician, NSR at 86 bpm, MN interval and QT interval within normal limits, there is no STEMI. POC glucose was 430 CBC grossly unremarkable CMP is notable for hyperglycemia at 408, lactic is elevated at 2.4, left 1.4, VBG notable for elevated venous blood lactic acid 3.4 otherwise unremarkable. Urinalysis notable for negative leukocyte esterase, negative nitrites, 3+ glucose urea. Will give 1 L LR IV, 2 g of IV magnesium, as well as insulin, IV 7 units. Reviewed the patient's chest x-ray along the corresponding radiologic report, there is no acute abnormality, there are status post CABG, heart is mildly enlarged Reexamination of patient at 4:30 PM, patient states he is feeling better after fluid and electrolyte as well as insulin administration, patient tells me he has PCP follow-up in the morning, I advised him to keep this appointment. Recheck POC glucose was 317, will give additional dose of 1 L LR IV, and continue to recheck BG to ensure trend downward, will also add on troponin level for completeness. Troponin within normal limits Assessment of patient at 6 PM, patient states he is feeling better after 2 L of fluid and insulin as well as IV mag, repeat check POC glucose is 225, patient be discharged home to self-care. Patient voiced understanding agreement current treatment plan/discharge plan. Strict ED return precaution given. <Guillermina Nowak, DO - Last Filed: 06/06/24 14:58> Vital Signs: 06/06/24 14:29 06/06/24 15:00 06/06/24 15:30 Temperature 98.6 F Temperature Source Oral Pulse Rate 86 87 Pulse Rate [Right Radial] 89 Respiratory Rate 18 18 Blood Pressure 102/68 L 116/65 Blood Pressure [Right Arm] 120/64 Blood Pressure Mean 77 81 Blood Pressure Mean [Right Arm] 82 Blood Pressure Source Blood Pressure Source [Right Arm] Automatic Cuff Blood Pressure Position Blood Pressure Position [Right Arm] Sitting 02 Sat by Pulse Oximetry 96 95 96 Oxygen Delivery Method Room Air 06/06/24 16:00 06/06/24 16:30 06/06/24 17:00 Temperature Temperature Source Pulse Rate 84 80 81 Pulse Rate [Right Radial] Respiratory Rate 16 16 16 Blood Pressure 123/76 121/66 120/72 Blood Pressure [Right Arm] Blood Pressure Mean 91 84 80 Blood Pressure Mean [Right Arm] Blood Pressure Source Blood Pressure Source [Right Arm] Blood Pressure Position Blood Pressure Position [Right Arm] 02 Sat by Pulse Oximetry 95 95 96 Oxygen Delivery Method 06/06/24 17:15 06/06/24 18:21 Temperature 98.6 F Temperature Source Oral Pulse Rate 80 77 Pulse Rate [Right Radial] Respiratory Rate 18 Blood Pressure 120/72 114/60 Blood Pressure [Right Arm] Blood Pressure Mean Blood Pressure Mean [Right Arm] Blood Pressure Source Automatic Cuff Blood Pressure Source [Right Arm] Blood Pressure Position Supine Blood Pressure Position [Right Arm] 02 Sat by Pulse Oximetry 95 Oxygen Delivery Method Room Air Room Air Lab Data Lab Results 06/06/24 14:31: VBG pH 7.42 H, VBG pCO2 36.4, VBG pO2 103.7 H, VBG HCO3 22.9 L, VBG Total CO2 24.0, VBG O2 Saturation 97.9 H, VBG Base Excess -1.6, VBG Lactic Acid 3.4 H 06/06/24 14:33: Urine Color Yellow, Urine Appearance Clear, Urine pH 6.0, Ur Specific [place] <= 1.005, Urine Protein Negative, Urine Glucose (UA) 3+, Urine Ketones Negative, Urine Blood Negative, Urine Nitrate Negative, Urine Bilirubin Negative, Urine Urobilinogen 0.2, Ur Leukocyte Esterase Negative, Urine WBC Occasional, Ur Squamous Epith Cells Occasional 06/06/24 14:40: WBC 7.7, RBC 4.97, Hgb 14.7, Hct 46.2, MCV 93.0, MCH 29.6, MCHC 31.8, RDW 14.6, Plt Count 276, MPV 8.8, Neut % (Auto) 62.5, Lymph % (Auto) 28.9, [place] % (Auto) 6.3, Eos % (Auto) 1.3, Baso % (Auto) 1.1, Neut # (Auto) 4.8, Lymph # (Auto) 2.2, [place] # (Auto) 0.5, Eos # (Auto) 0.1, Baso # (Auto) 0.1, Sodium 135 L, Potassium 4.8, Chloride 104, Carbon Dioxide 23, Anion Gap 12.8, BUN 20, Creatinine 0.90, Estimated Creat Clear 69, Estimated GFR 85, Est GFR ( Amer) 102, Glucose 408 H*, Lactate 2.4 H, Calcium 9.2, Magnesium 1.4 L, Total Bilirubin 0.6, AST 32, ALT 34, Alkaline Phosphatase 161 H, Troponin I < 0.01, Total Protein 7.4, Albumin 4.2, Globulin 3.2, Albumin/Globulin Ratio 1.3, HIV 1&2 Antibody Rapid Nonreactive Orders (Tests/Meds): ED MEDICATIONS Discontinued Medications Generic Name Dose Route Start Last Admin Trade Name Lucita PRN Reason Stop Dose Admin Magnesium Sulfate 2 gm in 50 mls @ 50 mls/hr 06/06/24 15:17 06/06/24 15:22 Magnesium Sulfate 2gm/50ml Premix IV 06/06/24 16:16 50 mls/hr ONCE ONE Administration Lactated Ringer's 1,000 mls @ 999 mls/hr 06/06/24 15:17 06/06/24 15:22 Lactated Ringer's 1000 Ml Bag IV 06/06/24 16:17 999 mls/hr .Q1H1M ONE Administration Lactated Ringer's 1,000 mls @ 999 mls/hr 06/06/24 17:00 06/06/24 17:02 Lactated Ringer's 1000 Ml Bag IV 06/06/24 18:00 999 mls/hr .Q1H1M ONE Administration Insulin Human Regular 7 unit 06/06/24 15:18 06/06/24 15:21 Insulin Human Regular 100 Units/Ml 10ml Vial 0.1 unit/kg (7 unit) 06/06/24 15:19 7 unit IV Administration ONCE ONE ORDERS Category Date Time Status XR chest portable Stat Exams 06/06/24 14:41 Completed Complete Blood Count Auto Diff Stat Lab 06/06/24 14:40 Completed Comprehensive Metabolic Panel Stat Lab 06/06/24 14:40 Completed HIV (1&2) Antibody Rapid Stat Lab 06/06/24 14:40 Completed Hep C Ab with Reflex to RNA Stat Lab 06/06/24 14:40 Received Lactic Acid Stat Lab 06/06/24 14:40 Completed Magnesium Stat Lab 06/06/24 14:40 Completed POC Glucose,Bedside Stat Lab 06/06/24 14:32 Ordered Troponin I Stat Lab 06/06/24 14:40 Completed Urinalysis and Microscopic Stat Lab 06/06/24 14:33 Completed Venous Blood Gas Stat RT 06/06/24 14:31 Completed ECG Data Tracing #1: I reviewed this ECG and interpreted as documented below: Normal sinus rhythm with a ventricular rate of 86 bpm. Left axis deviation. No acute ST changes concerning for ischemia ECG initial impression date: 06/06/24 ECG initial impression time: 14:41 <William Bhakta MD - Last Filed: 06/06/24 18:48> Vital Signs: 06/06/24 14:29 06/06/24 15:00 06/06/24 15:30 Temperature 98.6 F Temperature Source Oral Pulse Rate 86 87 Pulse Rate [Right Radial] 89 Respiratory Rate 18 18 Blood Pressure 102/68 L 116/65 Blood Pressure [Right Arm] 120/64 Blood Pressure Mean 77 81 Blood Pressure Mean [Right Arm] 82 Blood Pressure Source Blood Pressure Source [Right Arm] Automatic Cuff Blood Pressure Position Blood Pressure Position [Right Arm] Sitting 02 Sat by Pulse Oximetry 96 95 96 Oxygen Delivery Method Room Air 06/06/24 16:00 06/06/24 16:30 06/06/24 17:00 Temperature Temperature Source Pulse Rate 84 80 81 Pulse Rate [Right Radial] Respiratory Rate 16 16 16 Blood Pressure 123/76 121/66 120/72 Blood Pressure [Right Arm] Blood Pressure Mean 91 84 80 Blood Pressure Mean [Right Arm] Blood Pressure Source Blood Pressure Source [Right Arm] Blood Pressure Position Blood Pressure Position [Right Arm] 02 Sat by Pulse Oximetry 95 95 96 Oxygen Delivery Method 06/06/24 17:15 06/06/24 18:21 Temperature 98.6 F Temperature Source Oral Pulse Rate 80 77 Pulse Rate [Right Radial] Respiratory Rate 18 Blood Pressure 120/72 114/60 Blood Pressure [Right Arm] Blood Pressure Mean Blood Pressure Mean [Right Arm] Blood Pressure Source Automatic Cuff Blood Pressure Source [Right Arm] Blood Pressure Position Supine Blood Pressure Position [Right Arm] 02 Sat by Pulse Oximetry 95 Oxygen Delivery Method Room Air Room Air Lab Data Lab Results 06/06/24 14:31: VBG pH 7.42 H, VBG pCO2 36.4, VBG pO2 103.7 H, VBG HCO3 22.9 L, VBG Total CO2 24.0, VBG O2 Saturation 97.9 H, VBG Base Excess -1.6, VBG Lactic Acid 3.4 H 06/06/24 14:33: Urine Color Yellow, Urine Appearance Clear, Urine pH 6.0, Ur Specific [place] <= 1.005, Urine Protein Negative, Urine Glucose (UA) 3+, Urine Ketones Negative, Urine Blood Negative, Urine Nitrate Negative, Urine Bilirubin Negative, Urine Urobilinogen 0.2, Ur Leukocyte Esterase Negative, Urine WBC Occasional, Ur Squamous Epith Cells Occasional 06/06/24 14:40: WBC 7.7, RBC 4.97, Hgb 14.7, Hct 46.2, MCV 93.0, MCH 29.6, MCHC 31.8, RDW 14.6, Plt Count 276, MPV 8.8, Neut % (Auto) 62.5, Lymph % (Auto) 28.9, [place] % (Auto) 6.3, Eos % (Auto) 1.3, Baso % (Auto) 1.1, Neut # (Auto) 4.8, Lymph # (Auto) 2.2, [place] # (Auto) 0.5, Eos # (Auto) 0.1, Baso # (Auto) 0.1, Sodium 135 L, Potassium 4.8, Chloride 104, Carbon Dioxide 23, Anion Gap 12.8, BUN 20, Creatinine 0.90, Estimated Creat Clear 69, Estimated GFR 85, Est GFR ( Amer) 102, Glucose 408 H*, Lactate 2.4 H, Calcium 9.2, Magnesium 1.4 L, Total Bilirubin 0.6, AST 32, ALT 34, Alkaline Phosphatase 161 H, Troponin I < 0.01, Total Protein 7.4, Albumin 4.2, Globulin 3.2, Albumin/Globulin Ratio 1.3, HIV 1&2 Antibody Rapid Nonreactive Orders (Tests/Meds): ED MEDICATIONS Discontinued Medications Generic Name Dose Route Start Last Admin Trade Name Freq PRN Reason Stop Dose Admin Magnesium Sulfate 2 gm in 50 mls @ 50 mls/hr 06/06/24 15:17 06/06/24 15:22 Magnesium Sulfate 2gm/50ml Premix IV 06/06/24 16:16 50 mls/hr ONCE ONE Administration Lactated Ringer's 1,000 mls @ 999 mls/hr 06/06/24 15:17 06/06/24 15:22 Lactated Ringer's 1000 Ml Bag IV 06/06/24 16:17 999 mls/hr .Q1H1M ONE Administration Lactated Ringer's 1,000 mls @ 999 mls/hr 06/06/24 17:00 06/06/24 17:02 Lactated Ringer's 1000 Ml Bag IV 06/06/24 18:00 999 mls/hr .Q1H1M ONE Administration Insulin Human Regular 7 unit 06/06/24 15:18 06/06/24 15:21 Insulin Human Regular 100 Units/Ml 10ml Vial 0.1 unit/kg (7 unit) 06/06/24 15:19 7 unit IV Administration ONCE ONE ORDERS Category Date Time Status XR chest portable Stat Exams 06/06/24 14:41 Completed Complete Blood Count Auto Diff Stat Lab 06/06/24 14:40 Completed Comprehensive Metabolic Panel Stat Lab 06/06/24 14:40 Completed HIV (1&2) Antibody Rapid Stat Lab 06/06/24 14:40 Completed Hep C Ab with Reflex to RNA Stat Lab 06/06/24 14:40 Received Lactic Acid Stat Lab 06/06/24 14:40 Completed Magnesium Stat Lab 06/06/24 14:40 Completed POC Glucose,Bedside Stat Lab 06/06/24 14:32 Ordered Troponin I Stat Lab 06/06/24 14:40 Completed Urinalysis and Microscopic Stat Lab 06/06/24 14:33 Completed Venous Blood Gas Stat RT 06/06/24 14:31 Completed Medical Decision Narrative: 63-year-old male presents to the emergency department with hyperglycemia, different diagnose include not limited to Nonketotic hyperglycemia, hyperosmolar hyperglycemic state, DKA, cardiac arrhythmia, electrolyte disturbance, dehydration, medical noncompliance. I discussed this patient's case with the attending physician Dr. Nowak and Dr. Bhakta Will obtain CBC CMP, hep C antibody, HIV antibody, lactic acid low, needs a level, POC glucose, urinalysis, VBG, EKG and chest x-ray to further evaluate/characterization. I reviewed the patient's EKG along with the attending physician, NSR at 86 bpm, MN interval and QT interval within normal limits, there is no STEMI. POC glucose was 430 CBC grossly unremarkable CMP is notable for hyperglycemia at 408, lactic is elevated at 2.4, left 1.4, VBG notable for elevated venous blood lactic acid 3.4 otherwise unremarkable. Urinalysis notable for negative leukocyte esterase, negative nitrites, 3+ glucose urea. Will give 1 L LR IV, 2 g of IV magnesium, as well as insulin, IV 7 units. Reviewed the patient's chest x-ray along the corresponding radiologic report, there is no acute abnormality, there are status post CABG, heart is mildly enlarged Reexamination of patient at 4:30 PM, patient states he is feeling better after fluid and electrolyte as well as insulin administration, patient tells me he has PCP follow-up in the morning, I advised him to keep this appointment. Recheck POC glucose was 317, will give additional dose of 1 L LR IV, and continue to recheck BG to ensure trend downward, will also add on troponin level for completeness. Troponin within normal limits Assessment of patient at 6 PM, patient states he is feeling better after 2 L of fluid and insulin as well as IV mag, repeat check POC glucose is 225, patient be discharged home to self-care. Patient voiced understanding agreement current treatment plan/discharge plan. Strict ED return precaution given. I was consulted by the HAL[facility], and we discussed the complexity of the problems being addressed. I approved the treatment and management plan for this patient's care in the Emergency Department, thus performing a substantive portion of the medical decision making. William Bhakta MD Critical Care <Gulilermina Nowak, DO - Last Filed: 06/06/24 14:58> Critical Care Time Critical Care Time: No
--- NOTE | 2024-06-06 14:36 | ECG_ITS ---
APPROVED REPORT Exam: Resting ECG HR:86 bpm ECG Measurements Heart Rate 86 AXES KS 162 P 53 QRSd 101 QRS -43 QT 370 T 50 QTc 414 Conclusion SINUS RHYTHM LEFT AXIS DEVIATION [QRS AXIS < -30] PATTERN CONSISTENT WITH PULMONARY DISEASE VOLTAGE CRITERIA FOR LVH [MEETS CRITERIA IN ONE OF: R(aVL), S(V1), R(V5), R(V5/V6)+S(V1)] NONSPECIFIC T-WAVE ABNORMALITY ABNORMAL ECG UNCONFIRMED REPORT Electronically signed by : MUNIRA DORADO, 06/07/2024 04:26:54
--- NOTE | 2024-06-06 14:41 | XR_ITS ---
FINAL REPORT CLINICAL HISTORY: Shortness of breath COMPARISON: 05/17/2020 FINDINGS: No acute pulmonary opacity is present. There is no evidence of effusion or pneumothorax. The patient is status post CABG. Heart size is mildly enlarged. IMPRESSION: No acute abnormality. Reviewed, Interpreted and Dictated by Jazmyn Benavides MD Transcribed by Manuela Hernandez Authenticated and [facility]
--- NOTE | 2024-06-06 14:46 | PC.NURSE ---
PORTABLE XRAY AT BEDSIDE
--- NOTE | 2024-06-06 14:48 | PC.NURSE ---
PROVIDED PT WITH URINAL TO COLLECT URINE SAMPLE
[2024-06-06 14:52] LABS: Basophils # 0.1 K/mm3 (0-0.2); Basophils % 1.1 % (0.1-2.0); Eosinophils # 0.1 K/mm3 (0.0-0.4); Eosinophils % 1.3 % (0.1-12.0); Hematocrit 46.2 % (42.0-52.0); Hemoglobin 14.7 g/dL (14.1-18.0); Lymphocytes # 2.2 K/mm3 (0.7-4.5); Lymphocytes % 28.9 % (10-50); Mean Corpuscular HGB Conc 31.8 g/dL (31.8-35.4); Mean Corpuscular Hemoglobin 29.6 pg (27.0-31.2); Mean Platelet Volume 8.8 fl (7.4-10.4); Monocytes # 0.5 K/mm3 (0.1-1.0); Monocytes % 6.3 % (1.7-9.3); Neutrophils # 4.8 K/mm3 (1.8-7.8); Neutrophils % 62.5 % (37.0-80.0); Platelet Count 276 K/mm3 (142-424); Red Blood Count 4.97 M/mm3 (4.60-6.20); Red Cell Distribution Width 14.6 % (11.5-17.5); White Blood Count 7.7 K/mm3 (4.8-10.8)
[2024-06-06 14:54] LABS: VBG Base Excess -1.6 mmol/L (-2.4-2.3); VBG HCO3 22.9 mmol/L (23-30); VBG Oxygen Saturation 97.9 % (50-70); VBG PCO2 36.4 mmol/L (35-51); VBG PH 7.42 mmol/L (7.31-7.41); VBG PO2 103.7 mmol/L (28-40)
[2024-06-06 14:55] LABS: Appearance,Urine CLEAR (Clear); Bilirubin,Urine Negative (Negative); Blood, Urine Negative (Negative); Color,Urine YELLOW (Yellow); Glucose,Urine (UA) 3+ (Negative); Ketones,Urine Negative (Negative); Leukocyte Esterase,Urine Negative (Negative); Microscopic, Urine URINE MICROSCOPIC (MICROSCOPIC); Nitrate,Urine Negative (Negative); Protein,Urine Negative (Negative); Specific Gravity, Urine <= 1.005 (1.005-1.030); Urobilinogen,Urine 0.2 EU/dl (0.2)
[2024-06-06 14:56] LABS: Lactate Venous 3.4 mmol/L (0.4-2.0)
[2024-06-06 14:59] LABS: Albumin Level 4.2 g/dl (3.5-5.0); Chloride 104 mmol/L (98-107); Potassium 4.8 mmoL/L (3.5-5.1); Sodium 135 mmol/L (136-145)
[2024-06-06 15:01] LABS: Blood Urea Nitrogen 20 mg/dl (9-20); Creatinine Clearance Estimated 69 mL/min (50-200); Estimated Glomerular Filt Rate 85 ml/min (>60); GFR (African American) 102 ML/MIN (>60)
[2024-06-06 15:02] LABS: Alanine Aminotransferase 34 U/L (12-78); Albumin/Globulin Ratio 1.3 (1.1-1.8); Alkaline Phosphatase 161 U/L (38-126); Anion Gap 12.8 mEq/L (5-15); Aspartate Amino Transferase 32 U/L (17-59); Bilirubin,Total 0.6 mg/dl (0.2-1.3); Calcium 9.2 mg/dl (8.4-10.2); Carbon Dioxide 23 mmol/L (22.0-30.0); Globulin 3.2 g/dL (1.3-3.2); Magnesium 1.4 mg/dl (1.6-2.3); Total Protein,Serum 7.4 g/dl (6.3-8.2)
[2024-06-06 15:06] LABS: Squamous Epithelial Cell,Urine Occasional #/hpf (0-5); WBC,Urine Occasional #/hpf (0-3)
[2024-06-06 15:08] LABS: Lactic Acid 2.4 mmol/L (0.7-2.1)
[2024-06-06 15:09] LABS: Glucose 408 mg/dl (74-100)
--- NOTE | 2024-06-06 15:09 | PC.NURSE ---
glucose 408 received from lab. pt name and r/v. dr valenzuela notified
[2024-06-06] MEDS: INSULIN HUMAN REGULAR 100 UNITS/ML 10ML VIAL 7 UNIT IV (15:21)
[2024-06-06] MEDS: MAGNESIUM SULFATE IN WATER 2 GM/50 ML PIGGYBACK IV (15:22)
[2024-06-06] MEDS: LACTATED RINGERS 1000ML 1,000 ML 999 ML IV ×2 (15:22→17:02)
[2024-06-06 16:30] LABS: HIV (1&2) Antibody Rapid NONREACTIVE (NONREACTIVE)
--- NOTE | 2024-06-06 17:31 | PC.NURSE ---
CALLED LAB TO ADD ON TROP
[2024-06-06 17:52] LABS: Troponin I < 0.01 ng/ml (0.00-0.034)
[2024-06-06 18:41] LABS: Reflex Lactic Add Lactic Reflex
[2024-06-08 07:12] LABS: HCV Ab Non Reactive (Non Reactive)
== END 2024-06-06 18:25 | disposition home or self-care (01) ==
PROVIDERS: Emergency Medicine; Physician Assistant; Emergency Provider Emergency Medicine; PCP Family Medicine
DX: E11.65 Type 2 diabetes mellitus with hyperglycemia (principal); R74.02 Elevation of levels of lactic acid dehydrogenase [LDH]; Z79.4 Long term (current) use of insulin
CPT/HCPCS: 71045; 80053; 81001; 82803; 83605; 83735; 84484; 85025; 86803; 87389; 93005; 96361; 96365; 99285; J3475; J7120

== ENCOUNTER 2025-02-02 16:55 | Emergency (ER) | payer MEDICARE, SELFPAY ==
[2025-02-02 16:59] VITALS: BP 107/52; PULSE 66; RESP 16; TEMP 36.8; O2SAT 99; BMI 30.1
--- NOTE | 2025-02-02 17:12 | HMH.EDGENADL ---
Discharge Plan Disposition Patient Disposition: Home, Self-Care Condition: Good Prescriptions Prescriptions: No Action atorvastatin 20 MG tablet 20 mg PO HS famotidine 20 MG tablet 20 mg PO DAILY tamsulosin 0.4 MG capsule 0.4 mg PO HS aspirin 81 MG tablet,chewable 81 mg PO DAILY lisinopril 5 MG tablet 5 mg PO DAILY ticagrelor 90 MG tablet 90 mg PO BID empagliflozin 10 MG tablet 10 mg PO DAILY Patient Comments: TAKE 1 TABLET BY MOUTH EVERY DAY Referrals Follow up/Referrals: Luke Hoffman II, MD [Staff Physician] - See instructions Provider,MD Cynthia [Referring] - See instructions Activity Restrictions/Add. Instructions Additional Instructions/Restrictions: I recommend a bland diet until your pain goes away. If you have any persistent new or worsening signs or symptoms return to the ER. Especially if you are unable to tolerate oral intake. I referred you to gastroenterology for further workup. Please call on Monday to your appointment. Clinical Impressions Clinical Impression: Acute on chronic pancreatitis Instructions Patient Instructions: DI for Acute Abdominal Pain Print Language Print Language: Egyptian Discharge ED Provider: Zander Pa General Adult HPI <LAWRENCE Hudson - Last Filed: 02/02/25 22:04> General Chief complaint: Abdominal Pain Stated complaint: R upper Abdominal Pain through to Back Time Seen by Provider: 02/02/25 17:12 Mode of Arrival: Ambulatory Source of Information: Patient Description of Symptoms (Recalled from ER Triage Doc. by RN): Pt presents with c/o RUQ abdominal pain that started 2 days ago. Pt rates pain as a 8/10. Denies n/v/d History of Present Illness HPI narrative: Patient presents for evaluation of abdominal pain. Patient has had 48 hours of upper abdominal pain. He states its mainly in the right upper quadrant and epigastrium. It began after lunch 2 days ago. He has tolerated oral intake since but has had decreased appetite. He denies any fever chest pain shortness of breath hemoptysis hematochezia melena nausea vomiting diarrhea. He still has his gallbladder. He has had open heart surgery. He is also on Creon but cannot tell me clearly the reason that he needs to be on it. Does follow with Dr. Hoffman. Related Data Home Medications ?Medication ?Instructions ?Recorded ?Confirmed aspirin 81 mg chewable tablet 81 mg PO DAILY Heart disease 11/07/20 11/07/20 atorvastatin 20 mg tablet 20 mg PO HS Cholesterol 11/07/20 11/07/20 empagliflozin 10 mg tablet 10 mg PO DAILY Diabetes 11/07/20 11/07/20 famotidine 20 mg tablet 20 mg PO DAILY GERD 11/07/20 11/07/20 lisinopril 5 mg tablet 5 mg PO DAILY Hypertension 11/07/20 11/07/20 tamsulosin 0.4 mg capsule 0.4 mg PO HS PROSTATE 11/07/20 11/07/20 ticagrelor 90 mg tablet 90 mg PO BID Heart disease 11/07/20 11/07/20 Allergies Allergy/AdvReac Type Severity Reaction Status Date / Time morphine Allergy Severe Unknown Verified 05/17/20 15:27 allergy reaction PFSH <LAWRENCE Hudson - Last Filed: 02/02/25 22:04> [facility] Disclaimer: The information contained in this section may have been updated after the patient was seen, as this information can be updated by other users. Social History Smoking Status: Never smoker alcohol intake: never current occupational status: other Travel in the last 8 weeks?: None Have you lived/traveled outside [place] in past 30 days?: No Contact w/someone who lives/traveled outside US past 30 days?: No Exposure to someone with infectious disease in past 14 days?: No Do you have a fever (greater than 100.4 F or 38 C)?: No Have you tested positive for COVID-19?: No Exposed to someone with COVID-19 in past 14 days?: No Do you have a sore throat?: No Do you have a cough?: No Do you have any weakness?: No Do you have any diarrhea?: No Are you experiencing any unusual bleeding?: No Do you have any muscle aches/pain?: No Do you have any abdominal pain?: Yes Are you experiencing loss of taste or smell?: No Other Medical History Have you received the Flu Vaccine for this season: Yes Have you received the Pneumonia Vaccine: Yes <LAWRENCE Hudson - Last Filed: 02/02/25 22:04> ROS Obtained: Yes Systems reviewed as appropriate & no additional complaints except as documented Physical Exam <LAWRENCE Hudson - Last Filed: 02/02/25 22:04> General General appearance: alert and in no apparent distress Respiratory Respiratory exam: Present normal lung sounds bilaterally Cardiovascular Cardiovascular exam: Present regular rate Neurological Exam Neurological exam: Present alert and oriented X3 Medical Decision Making <LAWRENCE Hudson - Last Filed: 02/02/25 22:04> Medical Records Medical records reviewed: Yes I reviewed the patient's medical records. Screening: Per USPSTF and CDC recommendations, given the prevalence of disease in our region, it is our hospital?s policy to screen for HIV and viral Hepatitis for all patients aged 18 and over and those with ongoing risk factors. [place] Inquiry Pt receiving controlled substance: No Vital Signs: 02/02/25 16:59 02/02/25 19:59 Temperature 98.2 F 97.8 F Temperature Source Oral Oral Pulse Rate 87 Pulse Rate [Right] 66 Respiratory Rate 16 18 Blood Pressure 135/80 Blood Pressure [Right Arm] 107/52 L Blood Pressure Mean [Right Arm] 70 Blood Pressure Source Automatic Cuff Blood Pressure Source [Right Arm] Automatic Cuff Blood Pressure Position Sitting Blood Pressure Position [Right Arm] Sitting 02 Sat by Pulse Oximetry 99 Oxygen Delivery Method Room Air Room Air Lab Data Lab results reviewed: Yes I reviewed the patient's lab results. Lab Results 02/02/25 17:09: WBC 6.6, RBC 4.76, Hgb 13.8 L, Hct 41.5 L, MCV 87.2, MCH 29.0, MCHC 33.3, RDW 13.9, Plt Count 214, MPV 10.3, Neut % (Auto) 58.1, Lymph % (Auto) 32.2, [place] % (Auto) 7.2, Eos % (Auto) 1.8, Baso % (Auto) 0.5, Neut # (Auto) 3.8, Lymph # (Auto) 2.1, [place] # (Auto) 0.5, Eos # (Auto) 0.1, Baso # (Auto) 0.0, Sodium 136, Potassium 3.5, Chloride 105, Carbon Dioxide 24, Anion Gap 10.5, BUN 11, Creatinine 0.90, Estimated Creat Clear 95, Estimated GFR 84, Est GFR ( Amer) 102, Glucose 274 H, Calcium 8.6, Total Bilirubin 0.5, AST 24, ALT 18, Alkaline Phosphatase 82, Total Protein 6.6, Albumin 3.9, Globulin 2.7, Albumin/Globulin Ratio 1.4, Lipase 432 H 02/02/25 17:11: Urine Color Yellow, Urine Appearance Clear, Urine pH 6.0, Ur Specific [place] 1.025, Urine Protein 1+ A, Urine Glucose (UA) Negative, Urine Ketones Trace, Urine Blood Negative, Urine Nitrate Negative, Urine Bilirubin Negative, Urine Urobilinogen 0.2, Ur Leukocyte Esterase Negative, Urine RBC Occasional, Urine WBC Occasional, Ur Squamous Epith Cells 3-5, Urine Bacteria Trace, Hyaline Casts 10-20 02/02/25 17:09 02/02/25 17:09 Orders (Tests/Meds): ED MEDICATIONS Discontinued Medications Generic Name Dose Route Start Last Admin Trade Name Freq PRN Reason Stop Dose Admin Sodium Chloride 1,000 mls @ 999 mls/hr 02/02/25 18:34 02/02/25 18:54 Sod Chlor 0.9% 1000ml Bag IV 02/02/25 19:34 999 mls/hr .Q1H1M ONE Administration Iopamidol 75 ml 02/02/25 18:01 02/02/25 18:02 Iopamidol-370 (76%);100ml Bottle IV 02/02/25 18:02 75 ml ONCE ONE Administration Ketorolac Tromethamine 15 mg 02/02/25 18:34 02/02/25 18:53 Ketorolac 30mg/Ml Vial IV 02/02/25 18:35 15 mg ONCE ONE Administration Ondansetron HCl 4 mg 02/02/25 18:34 02/02/25 18:53 Ondansetron 4mg/2ml Vial IV 02/02/25 18:35 4 mg ONCE ONE Administration Oxycodone HCl 5 mg 02/02/25 18:51 02/02/25 19:09 Oxycodone 5mg Immediate Release Tablet PO 02/02/25 18:52 5 mg ONCE ONE Administration Sodium Chloride 10 ml 02/02/25 18:01 02/02/25 18:01 Sodium Chloride 0.9% 10ml Syr (Rad Only) IV 02/02/25 18:02 10 ml ONCE ONE Administration ORDERS Category Date Time Status CT abdomen pelvis w con Stat Cat Scan 02/02/25 17:39 Completed Complete Blood Count Auto Diff Stat Lab 02/02/25 17:09 Completed Comprehensive Metabolic Panel Stat Lab 02/02/25 17:09 Completed Lipase Stat Lab 02/02/25 17:09 Completed Urinalysis and Microscopic Stat Lab 02/02/25 17:11 Completed Medical Decision Narrative: In summary patient is a 64-year-old male who presents to the emergency department for evaluation of abdominal pain. Patient is hemodynamically stable upon arrival, afebrile. Physical exam is remarkable for clear breath sounds no increased work of breathing or adventitious sounds or accessory muscle use, abdomen is soft tender to palpation in the epigastrium negative [place] sign there is no rebound or guarding no rigidity bowel sounds normal active.. Differential diagnosis includes cholecystitis versus cholelithiasis versus pancreatitis versus gastritis versus gastroenteritis etc. Initial workup will be conducted with hematologic labs CT scan abdomen pelvis. Initial interventions include crystalloid bolus Toradol Tylenol Zofran oxycodone. Initial workup reviewed by me hematologic labs significant for white count of 6.6 with a normal H&H no neutrophilic shift, glucose is 274, lipase is 432, the remainder of his hematologic labs are nonactionable and his urinalysis is bland. My informed interpretation of his CT scan abdomen pelvis does not show any acute intraabdominal processes prior to radiology read. Please see final read for formal interpretation.. Upon repeat evaluation patient reported improvement in his pain and is actually tolerating oral intake. Given this I had a shared decision-making discussion with the patient as he is able to tolerate oral intake I gave him the option of being admitted or going home with strict return precautions. Via patient directed decision making and discharge he felt he was safe enough to go home and should he have increasing pain inability to tolerate oral intake or any worsening of his symptoms he will return to the emergency department for admission. Thus patient is appropriate for discharge with referral back to gastroenterology for pancreatitis with strict return precautions. <Zander Pa MD - Last Filed: 02/02/25 23:36> Vital Signs: 02/02/25 16:59 02/02/25 19:59 Temperature 98.2 F 97.8 F Temperature Source Oral Oral Pulse Rate 87 Pulse Rate [Right] 66 Respiratory Rate 16 18 Blood Pressure 135/80 Blood Pressure [Right Arm] 107/52 L Blood Pressure Mean [Right Arm] 70 Blood Pressure Source Automatic Cuff Blood Pressure Source [Right Arm] Automatic Cuff Blood Pressure Position Sitting Blood Pressure Position [Right Arm] Sitting 02 Sat by Pulse Oximetry 99 Oxygen Delivery Method Room Air Room Air Lab Data Lab Results 02/02/25 17:09: WBC 6.6, RBC 4.76, Hgb 13.8 L, Hct 41.5 L, MCV 87.2, MCH 29.0, MCHC 33.3, RDW 13.9, Plt Count 214, MPV 10.3, Neut % (Auto) 58.1, Lymph % (Auto) 32.2, [place] % (Auto) 7.2, Eos % (Auto) 1.8, Baso % (Auto) 0.5, Neut # (Auto) 3.8, Lymph # (Auto) 2.1, [place] # (Auto) 0.5, Eos # (Auto) 0.1, Baso # (Auto) 0.0, Sodium 136, Potassium 3.5, Chloride 105, Carbon Dioxide 24, Anion Gap 10.5, BUN 11, Creatinine 0.90, Estimated Creat Clear 95, Estimated GFR 84, Est GFR ( Amer) 102, Glucose 274 H, Calcium 8.6, Total Bilirubin 0.5, AST 24, ALT 18, Alkaline Phosphatase 82, Total Protein 6.6, Albumin 3.9, Globulin 2.7, Albumin/Globulin Ratio 1.4, Lipase 432 H 02/02/25 17:11: Urine Color Yellow, Urine Appearance Clear, Urine pH 6.0, Ur Specific [place] 1.025, Urine Protein 1+ A, Urine Glucose (UA) Negative, Urine Ketones Trace, Urine Blood Negative, Urine Nitrate Negative, Urine Bilirubin Negative, Urine Urobilinogen 0.2, Ur Leukocyte Esterase Negative, Urine RBC Occasional, Urine WBC Occasional, Ur Squamous Epith Cells 3-5, Urine Bacteria Trace, Hyaline Casts 10-20 Orders (Tests/Meds): ED MEDICATIONS Discontinued Medications Generic Name Dose Route Start Last Admin Trade Name Freq PRN Reason Stop Dose Admin Sodium Chloride 1,000 mls @ 999 mls/hr 02/02/25 18:34 02/02/25 18:54 Sod Chlor 0.9% 1000ml Bag IV 02/02/25 19:34 999 mls/hr .Q1H1M ONE Administration Iopamidol 75 ml 02/02/25 18:01 02/02/25 18:02 Iopamidol-370 (76%);100ml Bottle IV 02/02/25 18:02 75 ml ONCE ONE Administration Ketorolac Tromethamine 15 mg 02/02/25 18:34 02/02/25 18:53 Ketorolac 30mg/Ml Vial IV 02/02/25 18:35 15 mg ONCE ONE Administration Ondansetron HCl 4 mg 02/02/25 18:34 02/02/25 18:53 Ondansetron 4mg/2ml Vial IV 02/02/25 18:35 4 mg ONCE ONE Administration Oxycodone HCl 5 mg 02/02/25 18:51 02/02/25 19:09 Oxycodone 5mg Immediate Release Tablet PO 02/02/25 18:52 5 mg ONCE ONE Administration Sodium Chloride 10 ml 02/02/25 18:01 02/02/25 18:01 Sodium Chloride 0.9% 10ml Syr (Rad Only) IV 02/02/25 18:02 10 ml ONCE ONE Administration ORDERS Category Date Time Status CT abdomen pelvis w con Stat Cat Scan 02/02/25 17:39 Completed Complete Blood Count Auto Diff Stat Lab 02/02/25 17:09 Completed Comprehensive Metabolic Panel Stat Lab 02/02/25 17:09 Completed Lipase Stat Lab 02/02/25 17:09 Completed Urinalysis and Microscopic Stat Lab 02/02/25 17:11 Completed Medical Decision Narrative: In summary patient is a 64-year-old male who presents to the emergency department for evaluation of abdominal pain. Patient is hemodynamically stable upon arrival, afebrile. Physical exam is remarkable for clear breath sounds no increased work of breathing or adventitious sounds or accessory muscle use, abdomen is soft tender to palpation in the epigastrium negative [place] sign there is no rebound or guarding no rigidity bowel sounds normal active.. Differential diagnosis includes cholecystitis versus cholelithiasis versus pancreatitis versus gastritis versus gastroenteritis etc. Initial workup will be conducted with hematologic labs CT scan abdomen pelvis. Initial interventions include crystalloid bolus Toradol Tylenol Zofran oxycodone. Initial workup reviewed by me hematologic labs significant for white count of 6.6 with a normal H&H no neutrophilic shift, glucose is 274, lipase is 432, the remainder of his hematologic labs are nonactionable and his urinalysis is bland. My informed interpretation of his CT scan abdomen pelvis does not show any acute intraabdominal processes prior to radiology read. Please see final read for formal interpretation.. Upon repeat evaluation patient reported improvement in his pain and is actually tolerating oral intake. Given this I had a shared decision-making discussion with the patient as he is able to tolerate oral intake I gave him the option of being admitted or going home with strict return precautions. Via patient directed decision making and discharge he felt he was safe enough to go home and should he have increasing pain inability to tolerate oral intake or any worsening of his symptoms he will return to the emergency department for admission. Thus patient is appropriate for discharge with referral back to gastroenterology for pancreatitis with strict return precautions. I was consulted by the HALINA, and we discussed the complexity of the problems being addressed.I approved the treatment and management plan for this patient?s care in the Emergency Department, thus performing a substantive portion of the medical decision making.Signed, Zander Pa MD [facility] <LAWRENCE Hudson - Last Filed: 02/02/25 22:04> Critical Care Time Critical Care Time: Yes Attestation: On 02/02/25, the high probability of a clinically significant, sudden or life threatening deterioration of the following system(s) required my full and direct attention, intervention and personal management. The time I documented below is in addition to time spent performing reported procedures but includes the following listed in this critical care notation. Total Time Total Critical Care Time: 30
[2025-02-02 17:21] LABS: Basophils % 0.5 % (0.1-2.0); Eosinophils # 0.1 Kmm3 (0.0-0.4); Eosinophils % 1.8 % (0.1-12.0); Hematocrit 41.5 % (42.0-52.0); Hemoglobin 13.8 g/dL (14.1-18.0); Immature Granulocytes # 0.01 10^3uL; Immature Granulocytes % 0.2 %; Lymphocytes # 2.1 K/mm3 (0.7-4.5); Lymphocytes % 32.2 % (10-50); Mean Corpuscular HGB Conc 33.3 g/dL (31.8-35.4); Mean Corpuscular Volume 87.2 fl (80-94); Mean Platelet Volume 10.3 fl (7.4-10.4); Monocytes # 0.5 K/mm3 (0.1-1.0); Monocytes % 7.2 % (1.7-9.3); Neutrophils # 3.8 K/mm3 (1.8-7.8); Neutrophils % 58.1 % (37.0-80.0); Nucleated Red Blood Cells # 0 10^3/uL; Nucleated Red Blood Cells % 0 %; Platelet Count 214 K/mm3 (142-424); Red Blood Count 4.76 M/mm3 (4.60-6.20); Red Cell Distribution Width 13.9 % (11.5-17.5); Red Cell Distribution Width-SD 44.7 fL; White Blood Count 6.6 K/mm3 (4.8-10.8)
[2025-02-02 17:23] LABS: Albumin Level 3.9 g/dl (3.5-5.0); Chloride 105 mmol/L (98-107); Potassium 3.5 mmoL/L (3.5-5.1); Sodium 136 mmol/L (136-145)
[2025-02-02 17:23] LABS: Microscopic, Urine URINE MICROSCOPIC (MICROSCOPIC)
[2025-02-02 17:25] LABS: Appearance,Urine CLEAR (Clear); Bilirubin,Urine Negative (Negative); Blood, Urine Negative (Negative); Color,Urine YELLOW (Yellow); Glucose,Urine (UA) Negative (Negative); Ketones,Urine TRACE (Negative); Leukocyte Esterase,Urine Negative (Negative); Nitrate,Urine Negative (Negative); Protein,Urine 1+ (Negative); Specific Gravity, Urine 1.025 (1.005-1.030); Urobilinogen,Urine 0.2 EU/dl (0.2)
[2025-02-02 17:25] LABS: Alanine Aminotransferase 18 U/L (12-78); Aspartate Amino Transferase 24 U/L (17-59); Blood Urea Nitrogen 11 mg/dl (9-20); Creatinine Clearance Estimated 95 mL/min (50-200); Estimated Glomerular Filt Rate 84 ml/min (>60); GFR (African American) 102 ML/MIN (>60)
[2025-02-02 17:26] LABS: Albumin/Globulin Ratio 1.4 (1.1-1.8); Alkaline Phosphatase 82 U/L (38-126); Anion Gap 10.5 mEq/L (5-15); Bilirubin,Total 0.5 mg/dl (0.2-1.3); Calcium 8.6 mg/dl (8.4-10.2); Carbon Dioxide 24 mmol/L (22.0-30.0); Globulin 2.7 g/dL (1.3-3.2); Glucose 274 mg/dl (74-100); Lipase 432 U/L (23-300); Total Protein,Serum 6.6 g/dl (6.3-8.2)
--- NOTE | 2025-02-02 17:39 | CT_ITS ---
PROCEDURE INFORMATION: Exam: CT Abdomen And Pelvis With Contrast Exam date and time: 02/02/2025 6:02 PM Age: 64 years old Clinical indication: Abdominal pain; Additional info: Right upper quadrant abdominal pain TECHNIQUE: Imaging protocol: Computed tomography of the abdomen and pelvis with contrast. Radiation optimization: All CT scans at this facility use at least one of these dose optimization techniques: automated exposure control; mA and/or kV adjustment per patient size (includes targeted exams where dose is matched to clinical indication); or iterative reconstruction. Contrast material: ISOVUE; Contrast volume: 75 ml; Contrast route: IV; COMPARISON: CR XR CHEST PORTABLE 06/06/2024 2:40 PM FINDINGS: Tubes, catheters and devices: None noted. Lungs: Lung bases appear clear. Heart: Severe right coronary calcifications. CABG. No cardiomegaly. No significant pericardial effusion. Liver: Normal. No mass. Gallbladder and biliary ducts: Normal. No calcified stones. No ductal dilation. Pancreas: Normal. No ductal dilation. Spleen: Normal. No splenomegaly. Adrenal glands: Normal. No mass. Kidneys and ureters: Normal. No hydronephrosis. Stomach and bowel: Unremarkable. No obstruction. No mucosal thickening. Appendix: No evidence of appendicitis. Intraperitoneal space: Unremarkable. No free air. No significant fluid collection. Retroperitoneal space: No significant retroperitoneal inflammatory changes are noted. Vasculature: Unremarkable. No abdominal aortic aneurysm. Lymph nodes: Unremarkable. No enlarged lymph nodes. Urinary bladder: Thickened wall. Correlate with urinalysis. Reproductive: Symmetrically enlarged prostate. Bones/joints: Unremarkable. No acute fracture. Soft tissues: Unremarkable. IMPRESSION: 1. Symmetrically enlarged prostate. 2. Thick-walled bladder. Correlate with urinalysis. Consider cystitis versus chronic outlet obstruction.
[2025-02-02 17:43] LABS: Bacteria,Urine Trace /lpf; RBC,Urine Occasional #/hpf (0-3); WBC,Urine Occasional #/hpf (0-3)
[2025-02-02] MEDS: SODIUM CHLORIDE 0.9% 10ML SYR (RAD ONLY) 10 ML IV (18:01)
[2025-02-02] MEDS: IOPAMIDOL-370 (76%);100ML BOTTLE 75 ML IV (18:02)
[2025-02-02] MEDS: ONDANSETRON 4MG/2ML VIAL 4 MG IV (18:53)
[2025-02-02] MEDS: KETOROLAC 30MG/ML VIAL 15 MG IV (18:53)
[2025-02-02] MEDS: 0.9 % SODIUM CHLORIDE 1000ML 1,000 ML 999 ML IV (18:54)
[2025-02-02] MEDS: OXYCODONE 5MG IMMEDIATE RELEASE TABLET 5 MG PO (19:09)
[2025-02-02 19:59] VITALS: BP 135/80; PULSE 87; RESP 18; TEMP 36.6; O2SAT 98
--- NOTE | 2025-02-02 20:00 | PC.NURSE ---
IV discontinued. Catheter tip intact. Bleeding controlled.
== END 2025-02-02 20:03 | disposition home or self-care (01) ==
PROVIDERS: Emergency Provider Emergency Medicine; PCP Family Medicine
DX: R10.11 Right upper quadrant pain (principal); K85.90 Acute pancreatitis without necrosis or infection, unspecified; K86.1 Other chronic pancreatitis; K86.81 Exocrine pancreatic insufficiency
CPT/HCPCS: 74177; 80053; 81001; 83690; 85025; 96361; 96374; 96375; 99285; J1885; J2405; J7030; Q9967

== ENCOUNTER 2025-02-03 11:54 | Emergency (ER) | payer MEDICARE, SELFPAY ==
[2025-02-03] VITALS (7 sets, daily range): BP systolic 104–128; BP diastolic 64–75; PULSE 51–74; RESP 14–20; TEMP 36.6–37.1; O2SAT 94–99; BMI 30.2
[2025-02-03] MEDS: 0.9 % SODIUM CHLORIDE 1000ML 1,000 ML 500 ML IV (12:21)
[2025-02-03 12:28] LABS: Basophils % 0.5 % (0.1-2.0); Eosinophils # 0.1 Kmm3 (0.0-0.4); Eosinophils % 1.4 % (0.1-12.0); Hematocrit 42.8 % (42.0-52.0); Hemoglobin 14.4 g/dL (14.1-18.0); Immature Granulocytes # 0.01 10^3uL; Immature Granulocytes % 0.2 %; Lymphocytes % 30.2 % (10-50); Mean Corpuscular HGB Conc 33.6 g/dL (31.8-35.4); Mean Corpuscular Hemoglobin 29.3 pg (27.0-31.2); Mean Corpuscular Volume 87.2 fl (80-94); Mean Platelet Volume 10.4 fl (7.4-10.4); Monocytes # 0.5 K/mm3 (0.1-1.0); Monocytes % 6.8 % (1.7-9.3); Neutrophils % 60.9 % (37.0-80.0); Nucleated Red Blood Cells # 0 10^3/uL; Nucleated Red Blood Cells % 0 %; Platelet Count 207 K/mm3 (142-424); Red Blood Count 4.91 M/mm3 (4.60-6.20); Red Cell Distribution Width 13.9 % (11.5-17.5); Red Cell Distribution Width-SD 44.6 fL; White Blood Count 6.6 K/mm3 (4.8-10.8)
[2025-02-03 12:37] LABS: Lactic Acid 1.3 mmol/L (0.7-2.1)
[2025-02-03 12:38] LABS: Alanine Aminotransferase 14 U/L (12-78); Albumin Level 3.8 g/dl (3.5-5.0); Albumin/Globulin Ratio 1.5 (1.1-1.8); Alkaline Phosphatase 84 U/L (38-126); Anion Gap 8.5 mEq/L (5-15); Aspartate Amino Transferase 17 U/L (17-59); Bilirubin,Total 0.6 mg/dl (0.2-1.3); Blood Urea Nitrogen 8 mg/dl (9-20); Calcium 8.5 mg/dl (8.4-10.2); Carbon Dioxide 30 mmol/L (22.0-30.0); Chloride 105 mmol/L (98-107); Estimated Glomerular Filt Rate 97 ml/min (>60); GFR (African American) 117 ML/MIN (>60); Globulin 2.6 g/dL (1.3-3.2); Glucose 206 mg/dl (74-100); Lipase 272 U/L (23-300); Potassium 3.5 mmoL/L (3.5-5.1); Sodium 140 mmol/L (136-145); Total Protein,Serum 6.4 g/dl (6.3-8.2)
[2025-02-03] MEDS: KETOROLAC 30MG/ML VIAL 15 MG IV (13:45)
[2025-02-03] MEDS: ACETAMINOPHEN 1,000MG/100ML VIAL 1000 MG IV (13:45)
[2025-02-03] MEDS: ONDANSETRON 4MG/2ML VIAL 4 MG IV (13:50)
--- NOTE | 2025-02-03 14:04 | PC.NURSE ---
I rounded on the pt. no new complaints at this time. I took him a blanket and pillow for comfort. no needs voiced. call russo in reach.
--- NOTE | 2025-02-03 14:53 | ECG_ITS ---
APPROVED REPORT Exam: Resting ECG HR:62 bpm ECG Measurements Heart Rate 62 AXES IL 180 P 28 QRSd 101 QRS -41 QT 417 T -57 QTc 423 Conclusion SINUS RHYTHM WITH SINUS ARRHYTHMIA LEFT AXIS DEVIATION [QRS AXIS < -30] INCOMPLETE RIGHT BUNDLE BRANCH BLOCK [90+ ms QRS DURATION, TERMINAL R IN V1/V2, 40+ ms S IN I/aVL/V4/V5/V6] LEFT VENTRICULAR HYPERTROPHY AND ST-T CHANGE [VOLTAGE CRITERIA PLUS ST/T ABNORMALITY] POSSIBLE ANTERIOR MYOCARDIAL INFARCTION , OF INDETERMINATE AGE [30 ms Q WAVE IN V3/V4, OR R < 0.2 mV IN V4] ABNORMAL ECG Electronically signed by : LESTER HENSON, 02/08/2025 12:33:10
--- NOTE | 2025-02-03 14:57 | ED_ITS ---
Discharge Plan Disposition Patient Disposition: Home, Self-Care Condition: Good Prescriptions Prescriptions: No Action atorvastatin 20 MG tablet 20 mg PO HS famotidine 20 MG tablet 20 mg PO DAILY tamsulosin 0.4 MG capsule 0.4 mg PO HS aspirin 81 MG tablet,chewable 81 mg PO DAILY lisinopril 5 MG tablet 5 mg PO DAILY ticagrelor 90 MG tablet 90 mg PO BID empagliflozin 10 MG tablet 10 mg PO DAILY Patient Comments: TAKE 1 TABLET BY MOUTH EVERY DAY Referrals Follow up/Referrals: Annalise Carter [Primary Care Provider] - See instructions Luke Hoffman II, MD [Staff Physician] - See instructions Activity Restrictions/Add. Instructions Additional Instructions/Restrictions: You were seen for pancreatitis. Your labs are improving. Please follow up with GI. Return to the ER for worsening symptoms, vomiting or fever. Clinical Impressions Clinical Impression: Pancreatitis Instructions Patient Instructions: DI for Acute Abdominal Pain Print Language Print Language: Croatian Discharge ED Provider: Onesimo Dodd General Adult HPI <LAWRENCE Watt - Last Filed: 02/03/25 15:13> General Chief complaint: Abdominal Pain Stated complaint: pain in upper r.abd diagnosed pancreatitis 02/02 Time Seen by Provider: 02/03/25 12:07 Mode of Arrival: Ambulatory Source of Information: Patient Description of Symptoms (Recalled from ER Triage Doc. by RN): pt was seen here last night and dx with pancreatitis. pt states he was given the option to stay or go home and he chose to go home. pt states his pain has increased and he thinks he should have stayed. pt c/o RUQ abd pain that is 8/10 and aching in nature. pt denies N/V/D or urinary symptoms. pt has not taken anything for the pain today. History of Present Illness HPI narrative: Patient presents complaining of right upper quadrant abdominal pain for the past 3 days. He was here last night and diagnosed with pancreatitis. At that time patient requested to be treated as an outpatient. He does take Creon and follows with Dr. Hoffman. Denies any fever. Denies any vomiting or diarrhea. complaint: abdominal pain Onset (ago): day(s) Location: abdomen Radiation: non-radiation Severity: moderate Consistency: constant Relieving factors: none Exacerbating factors: none Associated symptoms: negative fever/chills Related Data Home Medications ?Medication ?Instructions ?Recorded ?Confirmed aspirin 81 mg chewable tablet 81 mg PO DAILY Heart disease 11/07/20 11/07/20 atorvastatin 20 mg tablet 20 mg PO HS Cholesterol 11/07/20 11/07/20 empagliflozin 10 mg tablet 10 mg PO DAILY Diabetes 11/07/20 11/07/20 famotidine 20 mg tablet 20 mg PO DAILY GERD 11/07/20 11/07/20 lisinopril 5 mg tablet 5 mg PO DAILY Hypertension 11/07/20 11/07/20 tamsulosin 0.4 mg capsule 0.4 mg PO HS PROSTATE 11/07/20 11/07/20 ticagrelor 90 mg tablet 90 mg PO BID Heart disease 11/07/20 11/07/20 Allergies Allergy/AdvReac Type Severity Reaction Status Date / Time morphine Allergy Severe Unknown Verified 02/03/25 12:43 allergy reaction PFSH <LAWRENCE Watt - Last Filed: 02/03/25 15:13> [facility] Disclaimer: The information contained in this section may have been updated after the patient was seen, as this information can be updated by other users. Social History Smoking Status: Never smoker alcohol intake: never current occupational status: other Travel in the last 8 weeks?: None Have you lived/traveled outside [place] in past 30 days?: No Contact w/someone who lives/traveled outside US past 30 days?: No Exposure to someone with infectious disease in past 14 days?: No Do you have a fever (greater than 100.4 F or 38 C)?: No Have you tested positive for COVID-19?: No Exposed to someone with COVID-19 in past 14 days?: No Do you have a sore throat?: No Do you have a cough?: No Do you have any weakness?: No Do you have any diarrhea?: No Are you experiencing any unusual bleeding?: No Do you have any muscle aches/pain?: No Do you have any abdominal pain?: Yes Are you experiencing loss of taste or smell?: No Other Medical History Have you received the Flu Vaccine for this season: Yes Have you received the Pneumonia Vaccine: Yes <LAWRENCE Watt - Last Filed: 02/03/25 15:13> ROS Obtained: Yes Systems reviewed as appropriate & no additional complaints except as documented Physical Exam <LAWRENCE Watt - Last Filed: 02/03/25 15:13> General General appearance: alert and in no apparent distress Head Head exam: atraumatic and normocephalic Eye Eye exam: Present normal appearance and EOMI Chest Chest inspection: Present symmetric chest wall rise Respiratory Respiratory exam: Present normal lung sounds bilaterally; Absent wheezes or stridor Cardiovascular Cardiovascular exam: Present regular rate and normal rhythm; Absent systolic murmur Abdominal Exam Abdominal exam: Present soft; Absent tenderness or guarding Abdominal tenderness: Present RUQ Extremities Exam Extremities exam: Present full ROM Neurological Exam Neurological exam: Present alert and oriented X3 Psychiatric Psychiatric exam: Present normal affect and normal mood Skin Skin exam: Present warm, dry and intact Medical Decision Making <LAWRENCE Watt - Last Filed: 02/03/25 15:13> Medical Records Screening: Per USPSTF and CDC recommendations, given the prevalence of disease in our region, it is our hospital?s policy to screen for HIV and viral Hepatitis for all patients aged 18 and over and those with ongoing risk factors. Elliott Inquiry Pt receiving controlled substance: No Vital Signs: 02/03/25 12:05 02/03/25 14:06 02/03/25 14:30 Temperature 97.9 F Temperature Source Oral Pulse Rate 62 51 L Pulse Rate [Left] 69 Respiratory Rate 14 Blood Pressure 128/73 123/64 Blood Pressure [Right Arm] 121/66 Blood Pressure Mean [Right Arm] 84 Blood Pressure Source [Right Arm] Automatic Cuff Blood Pressure Position [Right Arm] Sitting 02 Sat by Pulse Oximetry 98 98 97 Oxygen Delivery Method Room Air 02/03/25 15:01 Temperature Temperature Source Pulse Rate 63 Pulse Rate [Left] Respiratory Rate Blood Pressure 107/66 L Blood Pressure [Right Arm] Blood Pressure Mean [Right Arm] Blood Pressure Source [Right Arm] Blood Pressure Position [Right Arm] 02 Sat by Pulse Oximetry 94 L Oxygen Delivery Method Lab Data Lab Results 02/03/25 12:15: WBC 6.6, RBC 4.91, Hgb 14.4, Hct 42.8, MCV 87.2, MCH 29.3, MCHC 33.6, RDW 13.9, Plt Count 207, MPV 10.4, Neut % (Auto) 60.9, Lymph % (Auto) 30.2, Montgomery % (Auto) 6.8, Eos % (Auto) 1.4, Baso % (Auto) 0.5, Neut # (Auto) 4.0, Lymph # (Auto) 2.0, Montgomery # (Auto) 0.5, Eos # (Auto) 0.1, Baso # (Auto) 0.0, Sodium 140, Potassium 3.5, Chloride 105, Carbon Dioxide 30, Anion Gap 8.5, BUN 8 L D, Creatinine 0.80, Estimated GFR 97, Est GFR ( Amer) 117, Glucose 206 H D, Lactate 1.3, Calcium 8.5, Total Bilirubin 0.6, AST 17 D, ALT 14, Alkaline Phosphatase 84, Troponin I < 0.01, Total Protein 6.4, Albumin 3.8, Globulin 2.6, Albumin/Globulin Ratio 1.5, Lipase 272 02/03/25 12:15 02/03/25 12:15 Orders (Tests/Meds): ED MEDICATIONS Discontinued Medications Generic Name Dose Route Start Last Admin Trade Name Freq PRN Reason Stop Dose Admin Acetaminophen 1,000 mg 02/03/25 13:43 02/03/25 13:45 Acetaminophen 1,000mg/100ml Vial IV 02/03/25 13:44 1,000 mg ONCE ONE Administration Belladonna Alkaloids 60 ml 02/03/25 14:48 02/03/25 15:08 Belladonna Alkaloids 60 Ml Ml PO 02/03/25 14:49 60 ml ONCE ONE Administration Sodium Chloride 1,000 mls @ 500 mls/hr 02/03/25 12:15 02/03/25 12:21 Sod Chlor 0.9% 1000ml Bag IV 03/05/25 12:14 500 mls/hr .Q2H SERVANDO Administration Ketorolac Tromethamine 15 mg 02/03/25 13:43 02/03/25 13:45 Ketorolac 30mg/Ml Vial IV 02/03/25 13:44 15 mg ONCE ONE Administration Ondansetron HCl 4 mg 02/03/25 13:43 02/03/25 13:50 Ondansetron 4mg/2ml Vial IV 02/03/25 13:44 4 mg ONCE ONE Administration Oxycodone HCl 5 mg 02/03/25 14:48 02/03/25 15:08 Oxycodone 5mg Immediate Release Tablet PO 02/03/25 14:49 5 mg ONCE ONE Administration ORDERS Category Date Time Status POCUS Point of Care (ER Only) Stat Exams 05/26/25 13:25 Ordered CBC w/Auto Diff [Complete Blood Count Auto Diff] Stat Lab 02/03/25 12:15 Completed CMP [Comprehensive Metabolic Panel] Stat Lab 02/03/25 12:15 Completed Lactic Acid Stat Lab 02/03/25 12:15 Completed Lipase Stat Lab 02/03/25 12:15 Completed Troponin I Q3H Lab 02/03/25 18:00 Ordered Troponin I Q3H Lab 02/03/25 21:00 Ordered Troponin I Stat Lab 02/03/25 12:15 Completed Medical Decision Narrative: In summary patient is a 64-year-old male who presents the emergency department for evaluation of right upper quadrant abdominal pain. Patient is hemodynamically stable upon arrival, afebrile. Right upper quadrant abdominal tenderness, no guarding or rebound. Differential diagnosis includes pancreatitis, gastritis, cholelithiasis. Initial workup will be conducted with labs. Labs and CT reviewed from last night revealing lipase in the 400. Initial inventions include IV fluid bolus. Initial workup reviewed by tn labs are unremarkable, including EKG and troponin. Upon repeat evaluation patient has had acceptable resolution of symptoms. Given this patient is appropriate for discharge home at this time with follow-up with GI. Procedure: Procedure form was right upper quadrant ultrasound performed by Onesimo Dodd. Using the curvilinear probe right upper quadrant was briefly scanned, gallbladder identified, no wall thickness of the gallbladder outside of normal (less than 3 mm), no pericholecystic fluid no gallstones identified. I was consulted by the HALINA, and we discussed the complexity of the problems being addressed. I approved the treatment and management plan for this patient's care in the emergency department, thus performing a substantive portion of the medical decision making. Onesimo Dodd MD <Onesimo Dodd MD - Last Filed: 02/03/25 15:15> Vital Signs: 02/03/25 12:05 02/03/25 14:06 02/03/25 14:30 Temperature 97.9 F Temperature Source Oral Pulse Rate 62 51 L Pulse Rate [Left] 69 Respiratory Rate 14 Blood Pressure 128/73 123/64 Blood Pressure [Right Arm] 121/66 Blood Pressure Mean [Right Arm] 84 Blood Pressure Source [Right Arm] Automatic Cuff Blood Pressure Position [Right Arm] Sitting 02 Sat by Pulse Oximetry 98 98 97 Oxygen Delivery Method Room Air 02/03/25 15:01 Temperature Temperature Source Pulse Rate 63 Pulse Rate [Left] Respiratory Rate Blood Pressure 107/66 L Blood Pressure [Right Arm] Blood Pressure Mean [Right Arm] Blood Pressure Source [Right Arm] Blood Pressure Position [Right Arm] 02 Sat by Pulse Oximetry 94 L Oxygen Delivery Method Lab Data Lab Results 02/03/25 12:15: WBC 6.6, RBC 4.91, Hgb 14.4, Hct 42.8, MCV 87.2, MCH 29.3, MCHC 33.6, RDW 13.9, Plt Count 207, MPV 10.4, Neut % (Auto) 60.9, Lymph % (Auto) 30.2, Montgomery % (Auto) 6.8, Eos % (Auto) 1.4, Baso % (Auto) 0.5, Neut # (Auto) 4.0, Lymph # (Auto) 2.0, Montgomery # (Auto) 0.5, Eos # (Auto) 0.1, Baso # (Auto) 0.0, Sodium 140, Potassium 3.5, Chloride 105, Carbon Dioxide 30, Anion Gap 8.5, BUN 8 L D, Creatinine 0.80, Estimated GFR 97, Est GFR ( Amer) 117, Glucose 206 H D, Lactate 1.3, Calcium 8.5, Total Bilirubin 0.6, AST 17 D, ALT 14, Alkaline Phosphatase 84, Troponin I < 0.01, Total Protein 6.4, Albumin 3.8, Globulin 2.6, Albumin/Globulin Ratio 1.5, Lipase 272 Orders (Tests/Meds): ED MEDICATIONS Discontinued Medications Generic Name Dose Route Start Last Admin Trade Name Markusq PRN Reason Stop Dose Admin Acetaminophen 1,000 mg 02/03/25 13:43 02/03/25 13:45 Acetaminophen 1,000mg/100ml Vial IV 02/03/25 13:44 1,000 mg ONCE ONE Administration Belladonna Alkaloids 60 ml 02/03/25 14:48 02/03/25 15:08 Belladonna Alkaloids 60 Ml Ml PO 02/03/25 14:49 60 ml ONCE ONE Administration Sodium Chloride 1,000 mls @ 500 mls/hr 02/03/25 12:15 02/03/25 12:21 Sod Chlor 0.9% 1000ml Bag IV 03/05/25 12:14 500 mls/hr .Q2H SERVANDO Administration Ketorolac Tromethamine 15 mg 02/03/25 13:43 02/03/25 13:45 Ketorolac 30mg/Ml Vial IV 02/03/25 13:44 15 mg ONCE ONE Administration Ondansetron HCl 4 mg 02/03/25 13:43 02/03/25 13:50 Ondansetron 4mg/2ml Vial IV 02/03/25 13:44 4 mg ONCE ONE Administration Oxycodone HCl 5 mg 02/03/25 14:48 02/03/25 15:08 Oxycodone 5mg Immediate Release Tablet PO 02/03/25 14:49 5 mg ONCE ONE Administration ORDERS Category Date Time Status POCUS Point of Care (ER Only) Stat Exams 02/03/25 13:25 Ordered CBC w/Auto Diff [Complete Blood Count Auto Diff] Stat Lab 02/03/25 12:15 Completed CMP [Comprehensive Metabolic Panel] Stat Lab 02/03/25 12:15 Completed Lactic Acid Stat Lab 02/03/25 12:15 Completed Lipase Stat Lab 02/03/25 12:15 Completed Troponin I Q3H Lab 02/03/25 18:00 Ordered Troponin I Q3H Lab 02/03/25 21:00 Ordered Troponin I Stat Lab 02/03/25 12:15 Completed ECG Data Tracing #1: Independently inter by me rate of 62, rhythm is regular, axis is leftward deviated, incomplete right bundle branch block, no ST elevation in anatomical contiguous leads, QTc 423. Similar to EKG obtained previously. Medical Decision Narrative: In summary patient is a 64-year-old male who presents the emergency department for evaluation of right upper quadrant abdominal pain. Patient is hemodynamically stable upon arrival, afebrile. Right upper quadrant abdominal tenderness, no guarding or rebound. Differential diagnosis includes pancreatitis, gastritis, cholelithiasis. Initial workup will be conducted with labs. Labs and CT reviewed from last night revealing lipase in the 400. Initial inventions include IV fluid bolus. Initial workup reviewed by me labs are unremarkable, including EKG and troponin. Upon repeat evaluation patient has had acceptable resolution of symptoms. Given this patient is appropriate for discharge home at this time with follow-up with GI. Procedure: Procedure form was right upper quadrant ultrasound performed by Onesimo Dodd. Using the curvilinear probe right upper quadrant was briefly scanned, gallbladder identified, no wall thickness of the gallbladder outside of normal (less than 3 mm), no pericholecystic fluid no gallstones identified. I was consulted by the HALINA, and we discussed the complexity of the problems being addressed. I approved the treatment and management plan for this patient's care in the emergency department, thus performing a substantive portion of the medical decision making. 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 [id number] ultrasound shows no evidence of cholecystitis. CT imaging reviewed from yesterday no acute pathology labs do not support hepatobiliary obstructive pathology. Atypical ACS ruled out with initially undetectably low troponin no dynamic changes on EKG. Because of this I feel the patient is appropriate for outpatient management at this time was given return precautions will follow-up with Dr. Hoffman on outpatient basis. Onesimo Dodd MD Critical Care <LAWRENCE Watt - Last Filed: 02/03/25 15:13> Critical Care Time Critical Care Time: No
[2025-02-03] MEDS: OXYCODONE 5MG IMMEDIATE RELEASE TABLET 5 MG PO (15:08)
[2025-02-03] MEDS: BELLADONNA ALKALOIDS 60 ML ML PO (15:08)
[2025-02-03 15:10] LABS: Troponin I < 0.01 ng/ml (0.00-0.034)
== END 2025-02-03 16:46 | disposition home or self-care (01) ==
PROVIDERS: Physician Assistant; Emergency Provider Emergency Medicine; PCP Family Medicine
DX: R10.11 Right upper quadrant pain (principal); K85.90 Acute pancreatitis without necrosis or infection, unspecified
CPT/HCPCS: 80053; 83605; 83690; 84484; 85025; 93005; 96361; 96374; 96375; 99284; J0131; J1885; J2405; J7030

== ENCOUNTER 2025-05-05 11:54 | Emergency (ER) | payer MEDICARE, SELFPAY ==
[2025-05-05 12:08] VITALS: BP 104/63; PULSE 72; RESP 16; TEMP 37; O2SAT 97; BMI 28.3
--- NOTE | 2025-05-05 12:13 | ED_ITS ---
<Statement entered by Lance Valadez MD - 05/05/25 20:08> I was consulted by the HALINA, and we discussed the complexity of the problems being addressed. I approve the treatment and management plan for this patient's care in the emergency department, thus performing a substantive portion of the medical decision making. Lance Valadez MD Discharge Plan Disposition Patient Disposition: Home, Self-Care Condition: Good Prescriptions Prescriptions: New methocarbamol 750 mg tablet 750 mg PO HS Qty: 30 0RF No Action insulin glargine [Lantus U-100 Insulin] 100 unit/mL solution 40 unit SQ BID Patient Comments: INJECT 40 UNITS INTO THE SKIN TWICE DAILY ibuprofen 800 mg tablet 800 mg PO Q8H PRN hydroxyzine HCl 50 mg tablet 50 mg PO HS PRN Patient Comments: TAKE 1 TABLET BY MOUTH EVERY EVENING NEEDED FOR INSOMNIA metformin 1,000 mg tablet 1,000 mg PO BID Patient Comments: TAKE 1 TABLET BY MOUTH TWICE A DAY ropinirole 0.5 mg tablet 0.5 mg PO PRN Patient Comments: PLEASE SEE ATTACHED FOR DETAILED DIRECTIONS metoprolol tartrate 50 mg tablet 50 mg PO BID Patient Comments: TAKE 1 TABLET BY MOUTH TWICE A DAY montelukast 10 mg tablet 10 mg PO HS gabapentin 100 mg capsule 200 mg PO TID Patient Comments: TAKE TWO CAPSULES BY MOUTH THREE TIMES A DAY Creon 36,000-114,000- 180,000 unit capsule,delayed release(DR/EC) 1 cap PO QID Patient Comments: TAKE 1 CAPSULE BY MOUTH WITH EVERY MEAL Trulicity 0.75 mg/0.5 mL pen injector 0.75 mg SQ QWEEK Patient Comments: INJECT 0.5ML (0.75MG) INTO THE SKIN ONCE WEEKLY ticagrelor [Brilinta] 60 mg tablet 60 mg PO BID cholecalciferol (vitamin D3) 125 mcg (5,000 unit) capsule 125 mcg PO DAILY omega 9-phv-qdo-fish oil [Fish Oil] 300-1,000 mg capsule 1 cap PO DAILY Jardiance 25 mg tablet 25 mg PO DAILY magnesium aspart,citrate,oxide 400 mg magnesium capsule 500 mg PO DAILY ascorbic acid (vitamin C) 1,000 mg capsule 1,000 mg PO DAILY atorvastatin 20 MG tablet 20 mg PO HS famotidine 20 MG tablet 20 mg PO DAILY aspirin 81 MG tablet,chewable 81 mg PO DAILY lisinopril 5 MG tablet 5 mg PO DAILY Referrals Follow up/Referrals: Annalise Carter [Primary Care Provider, Medical] - See instructions Luke Hoffman II, MD [Staff Physician, Gastroenterology] - See instructions Activity Restrictions/Add. Instructions Additional Instructions/Restrictions: Please follow-up with your family doctor and GI doctor in the upcoming days/weeks, monitor for any worsening signs or symptoms to include nausea vomiting and unable to tolerate any oral intake, please take your muscle relaxer as prescribed, could utilize ibuprofen and Tylenol as needed for symptomatic relief. Clinical Impressions Clinical Impression: Acute on chronic pancreatitis, Elevated lipase, Soft tissue injury of back, Soft tissue injury of chest wall, Fall Instructions Patient Instructions: DI for Low Back Pain, Chronic Pancreatitis, DI for Blunt Trauma Print Language Print Language: [place] Islander Discharge ED Provider: Lance Valadez Adult HPI General Chief complaint: Back Pain/Injury Stated complaint: AO 04/07/2025 right side pain Time Seen by Provider: 05/05/25 12:05 Mode of Arrival: Ambulatory Source of Information: Patient Description of Symptoms (Recalled from ER Triage Doc. by RN): pt c/o middle back pain that radiates to his L side. pt states his pain is 4/10. He reports falling the end of March. 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 History of Present Illness HPI narrative: 64-year-old male presents to the emergency department with 3 to 4-week history of right-sided rib pain/mid thoracic and lower back pain after a mechanical fall that happened as stated 3 to 4 weeks ago, patient states he was going down a ramp , when he tripped and fell landed on his right side, denied any LOC, denied any presyncopal or syncopal event, denies any fever chills chest pain shortness of breath, denies any nausea vomiting no abdominal pain no constipation no diarrhea no urinary type symptomatology, no saddle anesthesia, no urinary bladder or bowel dysfunction no radiculopathy, patient is taken ibuprofen with little to no relief of his symptomatology. Denies any alcohol tobacco or drug use, other past medical history is consistent with acute on chronic pancreatitis, hyperlipidemia, type 2 diabetes, prior CABG, hypertension, patient is on a plate therapy with Plavix and aspirin. Initial triage vitals are unremarkable. Please note that above description of symptoms, in this electronic medical record under categorization of recalled from ER triage doctor by RN are reflective of an initial nursing assessment, however, is not reflective of my full history and physical exam that was personally taken and clarified. Consequentially, this preceding description of symptoms, which may include the patient's categorized chief complaint in the EMR, do not reflect my personal clinical impression, and the ultimate description of history of present illness and patient stated complaints should be deferred to this section of the note. Unless stated otherwise or congruent with this section of the note, additional signs, symptoms, or incongruence should be interpreted as inaccurate with my clinical impression. Onset (ago): week(s) Related Data Home Medications ?Medication ?Instructions ?Recorded ?Confirmed aspirin 81 mg chewable tablet 81 mg PO DAILY Heart dis ease 11/07/20 03/26/25 atorvastatin 20 mg tablet 20 mg PO HS Cholesterol 10/1303/26/25 famotidine 20 mg tablet 20 mg PO DAILY GERD 11/07/20 03/26/25 lisinopril 5 mg tablet 5 mg PO DAILY Hypertension 0 11/07/20 03/26/25 ascorbic acid (vitamin C) 1,000 mg 1,000 mg PO DAILY 0 03/26/25 03/26/25 capsule cholecalciferol (vitamin D3) 125 125 mcg PO DAILY 03/1103/26/25 mcg (5,000 unit) capsule dulaglutide 0.75 mg/0.5 mL 0.75 mg SQ QWEEK 03/26/25 0 03/26/25 subcutaneous pen injector (Trulicity) empagliflozin 25 mg tablet 25 mg PO DAILY 03/26/25 (Jardiance) gabapentin 100 mg capsule 200 mg PO TID 03/26/2503/26 hydroxyzine HCl 50 mg tablet 50 mg PO HS PRN 03/26/25 03/26/25 ibuprofen 800 mg tablet 800 mg PO Q8H PRN 03/26/25 0 03/26/25 insulin glargine 100 unit/mL 40 unit SQ BID 03/26/25 0 03/26/25 subcutaneous solution (Lantus U-100 Insulin) [id number] 1 cap PO QID 03/26/25 36,000-114,000-180,000 unit capsule,delay rel (Creon) magnesium aspart,citrate,oxide 500 mg PO DAILY 5 03/26/25 metformin 1,000 mg tablet 1,000 mg PO BID 03/26/25 metoprolol tartrate 50 mg tablet 50 mg PO BID 03/26/25 03/26/25 montelukast 10 mg tablet 10 mg PO HS 03/26/25 5 omega 5-qck-crc-fish oil 300 1 cap PO DAILY 03/26/25 0 03/26/25 mg-1,000 mg capsule (Fish Oil) ropinirole 0.5 mg tablet 0.5 mg PO PRN 03/26/2503/26 ticagrelor 60 mg tablet (Brilinta) 60 mg PO BID 03/26/25 Previous Rx's ?Medication ?Instructions ?Recorded methocarbamol 750 mg tablet 750 mg PO HS #30 tabs 04/12 02/02 Allergies Allergy/AdvReac Type Severity Reaction Status Date / Time morphine Allergy Severe Unknown Verified 05/05/25 12:15 allergy reaction [facility] Disclaimer: The information contained in this section may have been updated after the patient was seen, as this information can be updated by other users. Medical History Amputated toe of right foot Sleep apnea Heart disease Diabetes Pancreatitis Surgical History History of coronary artery bypass graft Family History Mother Colon cancer Unknown Stomach cancer Social History Smoking Status: Former smoker alcohol intake: never current occupational status: other Travel in the last 8 weeks?: None Have you lived/traveled outside US in past 30 days?: No Contact w/someone who lives/traveled outside US past 30 days?: No Exposure to someone with infectious disease in past 14 days?: No Do you have a fever (greater than 100.4 F or 38 C)?: No Have you tested positive for COVID-19?: No Exposed to someone with COVID-19 in past 14 days?: No Do you have a sore throat?: No Do you have a cough?: No Do you have any weakness?: No Do you have any diarrhea?: No Are you experiencing any unusual bleeding?: No Do you have any muscle aches/pain?: No Do you have any abdominal pain?: No Are you experiencing loss of taste or smell?: No Other Medical History Have you received the Flu Vaccine for this season: Yes Have you received the Pneumonia Vaccine: Yes ROS Obtained: Yes All systems reviewed & no additional complaints except as documented Physical Exam General General appearance: alert and in no apparent distress Head Head exam: atraumatic and normocephalic Eye Eye exam: Present PERRL and EOMI ENT ENT exam: Present mucous membranes moist Neck Neck exam: Present normal inspection Chest Chest inspection: Present normal inspection, symmetric chest wall rise, tenderness and other (There is mild pain palpation of the right sided rib area lower ribs, no obvious deformity or traumatic injury noted upon the chest wall) Respiratory Respiratory exam: Present normal lung sounds bilaterally; Absent respiratory distress Cardiovascular Cardiovascular exam: Present regular rate and normal rhythm Abdominal Exam Abdominal exam: Present soft; Absent tenderness, guarding, rebound or rigidity Extremities Exam Extremities exam: Present normal inspection Back Exam Back exam: Present paraspinal tenderness; Absent CVA tenderness (R), CVA tenderness (L) or vertebral tenderness Comment: Paraspinal tenderness to palpation to the thoracic spine as well as lower lumbar spine, negative spinal tenderness palpation to the cervical thoracic or lumbar spine, no paraspinal tenderness palpation of the cervical spine, Neurological Exam Neurological exam: Present alert and oriented X3 Psychiatric Psychiatric exam: Present normal affect Skin Skin exam: Present warm and dry Medical Decision Making Medical Records Medical records reviewed: Yes I reviewed the patient's medical records. Screening: Per USPSTF and CDC recommendations, given the prevalence of disease in our region, it is our hospital?s policy to screen for HIV and viral Hepatitis for all patients aged 18 and over and those with ongoing risk factors. Elliott Inquiry Pt receiving controlled substance: No Elliott was queried for this patient: No Vital Signs: 05/05/25 12:08 05/05/25 13:00 Temperature 98.6 F Temperature Source Oral Pulse Rate 72 Pulse Rate [Left] 72 Respiratory Rate 16 14 Blood Pressure 91/58 L Blood Pressure [Right Arm] 104/63 L Blood Pressure Mean [Right Arm] 76 Blood Pressure Source [Right Arm] Automatic Cuff Blood Pressure Position [Right Arm] Sitting 02 Sat by Pulse Oximetry 97 99 Oxygen Delivery Method Room Air Lab Data Lab results reviewed: Yes I reviewed the patient's lab results. Lab Results 05/05/25 13:22: WBC 7.6, RBC 4.49 L, Hgb 13.5 L, Hct 40.0 L, MCV 89.1, MCH 30.1, MCHC 33.8, RDW 13.8, Plt Count 222, MPV 10.3, Neut % (Auto) 55.6, Lymph % (Auto) 34.9, [place] % (Auto) 7.0, Eos % (Auto) 1.8, Baso % (Auto) 0.4, Neut # (Auto) 4.2, Lymph # (Auto) 2.7, [place] # (Auto) 0.5, Eos # (Auto) 0.1, Baso # (Auto) 0.0, Sodium 142, Potassium 4.6, Chloride 111 H, Carbon Dioxide 24, Anion Gap 11.6, BUN 13, Creatinine 1.00, Estimated Creat Clear 90, Estimated GFR 75, Est GFR ( Amer) 90, Glucose 138 H, Calcium 8.9, Total Bilirubin 0.3, AST 22, ALT 15, Alkaline Phosphatase 84, Troponin I < 0.01, NT-Pro-B Natriuret Pep 499 H, Total Protein 6.9, Albumin 4.0, Globulin 2.9, Albumin/Globulin Ratio 1.4, Lipase 1059 H, Urine Color Yellow, Urine Appearance Sl cloudy, Urine pH 6.0, Ur Specific [place] 1.020, Urine Protein Negative, Urine Glucose (UA) Trace, Urine Ketones Negative, Urine Blood Negative, Urine Nitrate Negative, Urine Bilirubin Negative, Urine Urobilinogen 0.2, Ur Leukocyte Esterase Negative, Urine RBC None, Urine WBC Occasional, Ur Squamous Epith Cells Occasional, Urine Bacteria Trace 05/05/25 13:22 05/05/25 13:22 Orders (Tests/Meds): ED MEDICATIONS Discontinued Medications Generic Name Dose Route Start Last Admin Trade Name Markusq PRN Reason Stop Dose Admin Iopamidol 75 ml 05/05/25 14:33 05/05/25 14:34 Iopamidol-370 (76%);100ml Bottle IV 05/05/25 14:34 75 ml ONCE ONE Administration Methocarbamol 750 mg 05/05/25 13:12 05/05/25 13:26 Methocarbamol 500mg Tablet PO 05/05/25 13:13 750 mg ONCE ONE Administration Sodium Chloride 10 ml 05/05/25 14:33 05/05/25 14:34 Sodium Chloride 0.9% 10ml Syr (Rad Only) IV 05/05/25 14:34 10 ml ONCE ONE Administration ORDERS Category Date Time Status CT abdomen pelvis w con Stat Cat Scan 05/05/25 14:[address] chest wo con Stat Cat Scan 05/05/25 13:[address] lumbar spine wo con Stat Cat Scan 05/05/25 13:[address] thoracic spine wo con Stat Cat Scan 05/05/25 13:08 Completed Complete Blood Count Auto Diff Stat Lab 05/05/25 13:22 Completed Comprehensive Metabolic Panel Stat Lab 05/05/25 13:22 Completed Lipase Stat Lab 05/05/25 13:22 Completed NT Pro Brain Natriuretic Pep. Stat Lab 05/05/25 13:22 Completed Troponin I Q3H Lab 05/05/25 16:15 Ordered Troponin I Q3H Lab 05/05/25 19:15 Ordered Troponin I Stat Lab 05/05/25 13:22 Completed Urinalysis and Microscopic Stat Lab 05/05/25 13:22 Completed Medical Decision Narrative: 64-year-old male presents to the emergency department after a fall, with right sided rib/back pain, differential diagnose include but not limited to, soft tissue injury, rib fracture, pulmonary contusion, thoracic spine fracture, thoracic myofascial strain, lumbar spine fracture, cardiac arrhythmia, acute pancreatitis, chronic pancreatitis, acute pyelonephritis, nephrolithiasis, electrolyte disturbance, ACS, costochondritis, acute lumbar sacral strain among others. I discussed this patient's case with the attending physician Will obtain basic laboratory studies, lipase level, BMP, troponin, UA, EKG, CT chest without contrast, CT lumbar spine without contrast CT thoracic back without contrast for further evaluation of characterization, give 750 mg p.o. methocarbamol. CBC unremarkable I reviewed the patient's CT lumbar spine without contrast along with corresponding radiologic report, no acute fracture, no traumatic subluxation, there is moderate bilateral neuroforaminal narrowing at L4-L5. CMP is notable for normal troponin, proBNP is minimally elevated at 49, lipase is significantly elevated at 1059. The patient CT chest without contrast on the corresponding radiologic report, there are several scattered pulmonary nodules greatest in size measure 7 mm in the right lower lobe, recommend CT chest follow-up in 3 to 6 months, no acute osseous abnormality. I reviewed the patient's CT thoracic spine without contrast along the corresponding radiologic report, no acute fracture no traumatic subluxation. UA is unremarkable. I reviewed the patient's CT abdomen pelvis with contrast along the corresponding radiologic report, no main pancreatic duct dilation, there is minimal stranding along the left anterior pararenal space but not significant peripancreatic stranding stranding along the pararenal space can be seen in the context of acute edematous interstitial pancreatitis, correlate clinically, there is a 5 mm right lower lobe the patient at low risk, follow-up CT indicated. I discussed this patient's case with the on-call GI physician at approximately 3:18 PM, he recommends follow-up in the GI clinic, at this time he believes more of a chronic pancreatitis picture, and he is not too concerned about the lipase elevation at this time due to the patient's history. Most likely fall is the cause of the patient's right-sided pain. I discussed the results with the patient at the bedside, patient is in agreement with the current discharge plan/treatment plan to follow-up in GI office, causation versus correlation, I do believe the patient has some degree of acute on chronic pancreatitis, no real pain to palpation at the mid epigastric region on the left, most likely soft tissue injury from recent trauma/fall 2 to 3 weeks ago, will treat the patient with 750 mg p.o. methocarbamol as patient had some good symptom relief with this medication in the emergency department. Patient was given strict ED return precautions, patient voiced understanding and agreement with the current treatment plan/discharge plan. Critical Care Critical Care Time Critical Care Time: No
--- OUTSIDE RECORDS SUMMARY | 2025-05-05 12:22 | XMS_ITS | Encounter Summary ---
Author Organization [employer] ([place], [place], [place], [place]) Address [address] [place] [address] Care Team Providers Care Bridge Builder Name Role Phone Annalise Carter DO Primary Care Provider [phone] Chuck Mei PA-C Unavailable [phone] Encounter Details Date Type Department Care Team (Late st Contact Info) Description 07/07/2020 Transcribed Document [facility] [place] [facility] [address] [place] [address] ProviderLars MD [address], [place] [address] Social History Tobacco Use Types Packs/Day Years Used Date Smoking Tobacco: Never Assessed Sex and Gender Information Value Date Recorded Sex Assigned at Male 06/19/2023 4:40 PM CDT Legal Sex Male 1:15 PM CDT Gender Identity Male 06/19/2023 4:40 PM CDT Sexual Orientation Straight 06/19/2023 4: 40 PM CDT documented as of this encounter Miscellaneous Notes * Cerner Conversion Note - Lars ProviderMD - 07/07/2020 9:49 PM CDT Education-Smoking Cessation Entered On: 07/08/2020 4:36 EDT Performed On: 07/07/2020 21:49 EDT by Nona Finney Lpn Teaching/Learning Assessment Barriers To Learning : None evident Individuals Taught : Patient Readiness to Learn : Cooperative Highest Level of Education : Some college Nona Finney Lpn - 07/08/2020 4:36 EDT Education: Smoking/Tobacco Cessation Topics Smoking Cess Educatin Grid Advice Given to Stop Smoking : Verbalizes understanding Risks/Benefits of Smoking : Verbalizes understanding Second Hand Smoke : Verbalizes understanding Ed-Smoking Cessation Programs : Verbalizes understanding Ed-Smoking Cessation, Other : Verbalizes understanding Nona Finney Lpn - 07/08/2020 4:36 EDT Tobacco Cessation Counseling Grid Recognizing Danger Situations : Verbalizes understanding Negative Moods and/or Stress : Verbalizes understanding Being Around Other Tobacco Users : Verbalizes understanding Drinking Alcohol : Verbalizes understanding Experiencing Urges : Verbalizes understanding Tobacco Cues and Availability : Verbalizes understanding Developing Coping Skills : Verbalizes understanding Anticipate/Avoid Temptation/Triggers : Verbalizes understanding Strategies to Reduce Negative Moods : Verbalizes understanding Reduce Stress/Exposure to Tobacco Cues : Verbalizes understanding Activities to [place] With Smoking Urges : Verbalizes understanding Basic Information About Quitting : Verbalizes understanding Tobacco Use Increases Chance of Relapse : Verbalizes understanding Withdrawal Symptoms Peak After Quitting : Verbalizes understanding Addictive Nature of Tobacco : Verbalizes understanding Nona Finney Lpn - 07/08/2020 4:36 EDT QuitLine Referral : Pt Refused Nona Finney Lpn - 07/08/2020 4:36 EDT documented in this encounter Plan of Treatment Not on file documented as of this encounter Visit Diagnoses Not on filedocumented in this encounter Additional Health Concerns Infection Onset Date Last Indicated Resolved Time MRSA (C) 06/11/2023 06/11/2023 documented as of this encounter Care Teams Bridge Builder Relationship Specialty Start Date End Date Annalise Carter, DO [address] [facility] [address] [place] [address] PCP - General Family Medicine 06/06/23 Chuck Mei PA-C [address] [place] [address] Cardiology 11/01/23 documented as of this encounter
--- OUTSIDE RECORDS SUMMARY | 2025-05-05 12:22 | XMS_ITS | Encounter Summary ---
Author Organization [employer] ([place], [place], [place], [place]) Address [address] [place] [address] Care Team Providers Care Glass Novelty Maker Name Role Phone Annalise Carter DO Primary Care Provider [phone] Chuck Mei PA-C Unavailable Encounter Details Date Type Department Care Team (Late st Contact Info) Description 07/07/2020 Transcribed Document [facility] Family Medicine [facility] [place] [address] ProviderLars MD [address] [place] [address] Social History Tobacco Use Types Packs/Day Years [...] Conversion Note - Lars ProviderMD - 07/07/2020 10:03 PM CDT DATE OF ADMISSION: 07/07/2020 PRIMARY CARE PHYSICIAN: Dr. Annalise García . CHIEF COMPLAINT: Shortness of breath, cough, hemoptysis. HISTORY OF PRESENT ILLNESS: This is a 59-year-old morbidly obese male. The patient recently admitted to [facility] with diagnosis of COVID. The patient had been in ICU. The patient discharged home. He was doing okay and stable. The patient presented to ER again because he started to have shortness of breath, cough, difficulty breathing, coughing of blood. The patient was concerned, came to ER to be evaluated. In ER, blood work done. It shows hyperglycemia. CT angio of the chest done, shows bilateral pulmonary nodules and ground-glass opacity. The patient started on breathing treatment. Culture was ordered, start IV antibiotic, admitted to the hospital. The patient is lying in bed, anxious, mild distress. No family at bedside. SYSTEMIC REVIEW: GENERAL: No fever or chills. HEAD: No headache or dizziness. EYES: No change of vision. EARS: No earache. NOSE: No epistaxis. THROAT: No sore throat. RESPIRATORY: Positive for shortness of breath, cough, and coughing blood. CARDIAC: No chest pain or palpitation. GI: Positive for nausea. No vomiting. URINARY: No hematuria. MUSCULOSKELETAL: Body ache. NEUROLOGICAL: No focal numbness or weakness. SKIN: No new rashes. ENDOCRINE: No heat or cold intolerance. PAST MEDICAL HISTORY: 1. Morbid obesity. 2. History of COVID-19 pneumonia. 3. Diabetes mellitus. 4. Coronary artery disease. 5. Anxiety. 6. Glaucoma. 7. Difficulty hearing. 8. Hypertension. 9. Hyperlipidemia. 10. Kidney stones. 11. Obstructive sleep apnea. PAST SURGICAL HISTORY: 1. Coronary artery disease, status post stent placement. 2. History of CABG. SOCIAL HISTORY: The patient is a nonsmoker. No alcohol or drug abuse. FAMILY HISTORY: Positive for heart disease. ALLERGIES: Morphine. HOME MEDICATIONS: 1. Combivent as needed. 2. Aspirin 81 mg daily. 3. Lipitor 40 mg at bedtime. 4. Symbicort twice a day. 5. Multivitamins once daily. 6. Jardiance 10 mg daily. 7. Pepcid 20 mg daily. 8. Lasix 20 mg daily. 9. Lantus 75 units subcu daily. 10. Lisinopril 5 mg daily. 11. Metoprolol 50 mg twice daily. 12. Singulair 10 mg daily. 13. Flomax 0.4 mg daily. 14. Brilinta 90 mg twice daily. PHYSICAL EXAMINATION: VITAL SIGNS: Blood pressure 128/69, temperature 98.6, heart rate 84, respiratory rate 25. HEENT: Head is atraumatic, normocephalic. Pupils are round and reactive. Eyes, no conjunctival injection or discharge. Ears, no discharge. Nose, no bleeding or discharge. Mouth, dry. NECK: Supple. Full range of motion. CHEST: Diminished air entry. Bilateral expiratory] wheezes. Bilateral rales. No respiratory muscle retraction. HEART: S1 and S2 heard. Regular rate and rhythm. ABDOMEN: Soft, obese, audible bowel sounds. No tenderness. No guarding. No rebound tenderness. EXTREMITIES: No edema, erythema, or tenderness. NEUROLOGICAL: No apparent focal motor or sensory deficit. The patient is alert, awake, oriented x3. Intact cranial nerves. PSYCHIATRIC: Positive for anxiety. SKIN: No apparent rashes or induration. ENDOCRINE: No thyromegaly or tenderness. GENERAL: The patient is lying in bed, mild distress, anxious. No family at bedside. LABORATORY DATA AND STUDIES: Sodium 140, potassium 3.5, chloride 108, CO2 of 26, glucose 187, BUN 10, creatinine 1.0, calcium 8.9, protein 7.6, albumin 3.2, globulin 4.4, bilirubin 0.4, alkaline phosphatase 109, AST 18, ALT 27. Troponin 0.015. White blood cells 7.1, hemoglobin 12.7, hematocrit 39.4, platelets 341. INR 1.0. ASSESSMENT AND PLAN: 1. Hemoptysis. The patient admitted to the hospital with hemoptysis. The patient had culture done. Start empiric antibiotic coverage. Pulmonary consulted. The patient will be n.p.o. after midnight for pulmonary evaluation. 2. Pneumonia/acute bronchitis. The patient had culture done. Start IV Zosyn, doxycycline, breathing treatment, and oxygen. 3. History of tobacco use. The patient quit. 4. Chronic obstructive pulmonary disease. The patient will be on DuoNeb as needed. 5. Volume overload. We will start IV diuretics. 6. History of COVID-19 in May 2020. The patient was seen by Infectious Disease during hospitalization. 7. Diabetes mellitus. He will be on sliding scale. 8. Hypertension. We will start Vasotec as needed. 9. Anxiety. The patient was started on Ativan as needed. 10. Gastrointestinal prophylaxis, Pepcid. 11. Deep venous thrombosis prophylaxis, compression boot. Plan discussed with the patient, with RN. Chart was reviewed. Time spent, 60 minutes. /[id number] MD Jalyn HouseZ/AQ / YZ / MODL CC: Dr. Annalise García Electronically signed by [facility], [facility] Conversion Clerical Coordinator Cerner at 12/27/2022 11:46 AM CDT documented in this encounter Plan of Treatment Not on file documented as of this encounter Visit Diagnoses Not on filedocumented in this encounter Additional Health Concerns Infection Onset Date Last Indicated Resolved Time MRSA (C) 06/11/2023 06/11/2023 documented as of this encounter Care Teams Glass Novelty Maker Relationship Specialty Start Date End Date Annalise Carter, DO [address] [place] [address] PCP - General Family Medicine 06/06/23 Chuck Mei PA-C [address] [facility] [address] [place] [address] Cardiology 11/01/23 documented as of this encounter
--- OUTSIDE RECORDS SUMMARY | 2025-05-05 12:22 | XMS_ITS | Encounter Summary ---
Author Organization [employer] ([place], [place], [place], [place]) Address [address] [place] [address] Care Team Providers Care Soap Maker Name Role Phone EmmaAnnalise Bre BENITEZ Primary Care Provider [phone] Chuck Mei PA-C Unavailable [phone] Encounter Details Date Type Department Care Team (Late st Contact Info) Description 07/07/2020 Transcribed Document [facility] Pulm & Critical Care Medicine [address] [facility] [address] [place] [id number] Orville Wise MD [address] [facility] [address] [place] [address] Social History Tobacco Use Types Packs/Day Years Used Date Smoking Tobacco: Never Assessed Sex and Gender Information Value Date Recorded Sex Assigned at Male 06/19/2023 4:40 PM CDT Legal Sex Male 1:15 PM CDT Gender Identity Male 06/19/2023 4:40 PM CDT Sexual Orientation Straight 06/19/2023 4: 40 PM CDT documented as of this encounter Miscellaneous Notes * [employer] Conversion Note - Orville Wise MD - 07/07/2020 8:38 PM EDT Patient: ROSARIO GREGG Age: 59 years Sex: Male : 1960 Associated Diagnoses: None Author: AIDE ABEL PA-C Basic Information Date of consultation: 07/07/20 Date of admission: 07/07/20 Requesting physician: Dr Kaplan Reason for consultation: Hemoptysis Chief complaint: Coughing up blood History of present illness: Patient is 59-year-old gentleman with history of coronary artery disease, diabetes mellitus, hypertension, hyperlipidemia, and sleep apnea. As of note patient was admitted and this facility with Covid and May of this year. He was eventually discharged home in stable condition on 05/30/20. The patient states that he has had a cough on and off since that time but does seem that it has improved. Patient went to his primary care last week and received a course of azithromycin and codeine cough syrup. Today approximately 1400 patient states that he had a coughing episode and coughed up approximately 1 tablespoon of bright red blood. He states that this happened 5 times with the first 2 episodes being bright red blood and then scant blood-tinged sputum afterwards. He further states that the last time he coughed up blood was approximately 2:30. Since that time he has not had significant coughing blood-tinged sputum. Patient did present to the emergency department today for further evaluation. His laboratory data was within normal limits. He did have a CT scan of the chest with contrast did not reveal any pulmonary embolism or significant infiltrate. He did have some mild interstitial opacities that appeared to be very mild pulmonary edema. Pulmonary/critical care was consulted for hemoptysis. At time of evaluation patient is in the hospital bed he is awake and alert and follows all commands. He is on room air with adequate saturations. He denies fevers or chills, ill contacts, or recent travel. He has denied any shortness of breath or fatigue. Again he states he has had an on and off cough since being discharged approximately 6 weeks ago. He does take Brilinta at home. Hemodynamically he is stable. Afebrile. No family present at bedside. PMH: CAD Arthritis Cataracts Depression Anxiety DM Glaucoma HTN HLD Pneumonia Sleep Apnea - does not wear C pap - did not follow up due to caring for his parents. 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 Eye: No visual disturbances. Ear/Nose/Mouth/Throat: No sore throat. Respiratory: Cough, Sputum production, Hemoptysis, 5 episodes, No shortness of breath. Cardiovascular: No chest pain. Gastrointestinal: No nausea, No vomiting, No abdominal pain. Genitourinary: No dysuria, No hematuria. Hematology/Lymphatics: No bruising tendency, No bleeding tendency. Immunologic: Not immunocompromised. Musculoskeletal: No back pain. Integumentary: No rash. Neurologic: Alert and oriented X4, Headache. Overall feeling better Health Status Allergies: Allergic Reactions (Selected) Severity Not Documented Morphine- No reactions were documented., No qualifying data available Current medications: (Selected) Documented Medications Documented Brilinta (ticagrelor) 90 mg oral tablet: 1 Tab, Oral, BID, for 90 Day(s), 180 Tab, 0 Refill(s) Combivent Respimat CFC free 100 mcg-20 mcg/inh inhalation aerosol: 1 Puff, Inhalation, QID, for 30 Day(s), 0 Refill(s) Jardiance 10 mg oral tablet: 1 Tab, Oral, QAM, for 90 Day(s), 0 Refill(s) Lantus 100 units/mL subcutaneous solution: 75 Units, SubCutaneous, Daily, for 90 Day(s), 0 Refill(s) Metoprolol Tartrate 50 mg oral tablet: 1 Tab, Oral, BID, 180 Tab, 0 Refill(s) Singulair 10 mg oral tablet: 1 Tab, Oral, At Bedtime, for 90 Day(s), 0 Refill(s) Symbicort 160 mcg-4.5 mcg/inh inhalation aerosol: 2 Puff, Inhalation, BID, for 30 Day(s), 0 Refill(s) Trulicity Pen 1.5 mg/0.5 mL subcutaneous solution: 0.75 mg, SubCutaneous, Weekly, for 30 Day(s), On , 0 Refill(s) aspirin 81 mg oral delayed release tablet: 1 Tab, Oral, Daily, 30 Tab, 0 Refill(s) atorvastatin 40 mg oral tablet: 1 Tab, Oral, Daily, for 90 Day(s), 90 Tab, 0 Refill(s) diclofenac sodium 75 mg oral delayed release tablet: 1 Tab, Oral, BID, 180 Tab, 0 Refill(s) famotidine 20 mg oral tablet: 1 Tab, Oral, Daily, for 30 Day(s), 0 Refill(s) furosemide 20 mg oral tablet: 1 Tab, Oral, Daily, for 90 Day(s), 0 Refill(s) lisinopril 5 mg oral tablet: 1 Tab, Oral, Daily, 30 Tab, 0 Refill(s) tamsulosin 0.4 mg oral capsule: 1 Cap, Oral, Daily, for 90 Day(s), 90 Cap, 0 Refill(s) Physical Examination VS/Measurements Vitals Signs (last 24 hrs) Last Charted Minimum Maximum Temp 98.0 (JUL 07 14:19) 98.0 (JUL 07 14:19) 98.0 (JUL 07 14:19) Periph HR 89 (JUL 07 17:21) 89 (JUL 07 17:21) 98 (JUL 07 14:19) Resp Rate 16 (JUL 07 17:21) 16 (JUL 07 17:21) 20 (JUL 07 14:19) SBP 123 (JUL 07 17:21) 113 (JUL 07 14:19) 123 (JUL 07 17:21) DBP 66 (JUL 07 17:21) 61 (JUL 07 14:19) 66 (JUL 07 17:21) SpO2 96 (JUL 07 17:21) L 93 (JUL 07 14:19) 96 (JUL 07 17:21) General: Alert and oriented, No acute distress. Eye: Pupils are equal, round and reactive to light. HENT: Normocephalic. Neck: Supple. Respiratory: Lungs are clear to auscultation, Respirations are non-labored, Breath sounds are equal, Symmetrical chest wall expansion. Cardiovascular: Normal rate, Regular rhythm, Good pulses equal in all extremities, No edema. Gastrointestinal: Soft, Non-tender, Non-distended, Normal bowel sounds. Musculoskeletal: Normal range of motion. Integumentary: Warm, Dry. Neurologic: Alert, Oriented. Psychiatric: Cooperative, Appropriate mood & affect. Review / Management Results review: Labs (Last four charted values) WBC 7.1 (JUL 07) HB L 12.7 (JUL 07) HCT L 39.4 (JUL 07) Plt 341 (JUL 07) Na 140 (JUL 07) K 3.5 (JUL 07) Cl 108 (JUL 07) CO2 26 (JUL 07) BUN 10 (JUL 07) Cr 1.00 (JUL 07) Glu R H 187 (JUL 07) Ca 8.9 (JUL 07) PT 10.5 (JUL 07) INR 1.0 (JUL 07) PTT 32.0 (JUL 07) AST 18 (JUL 07) ALT 27 (JUL 07) ALK P 109 (JUL 07) T Bili 0.4 (JUL 07) PTN 7.6 (JUL 07) ALB L 3.2 (JUL 07) Troponin <0.015 (JUL 07) . No qualifying data available Blood Gases (Current Encounter/Past 24 Hours) No Blood Gas Results Found (Past 24 Hours) Radiology Results (Last 48 hours) [id number] -- 07/07/2020 18:23 CTA Chest PE Protocol (07/07/2020 16:00) Result: CT ANGIOGRAM OF THE CHESTHISTORY: Hematemesis. History of Covid19.COMPARISON: None.TECHNIQUE: Thin-section axial images were obtained through the chestduring the arterial phase of IV contrast administration. Coronal 3D MIPreconstructed images were also provided. This study was performed withtechniques to keep radiation doses as low as reasonably achievable,(ALARA). Individualized dose reduction techniques using automatedexposure control or adjustment of mA and/or kV according to the patientsize were employed.FINDINGS: Pulmonary arteries are well opacified and pulmonary side. Thethoracic aorta is normal. There is evidence of old calcifiedgranulomatous disease. At least 4 additional pulmonary nodules, all 6 mmor less in diameter, are seen. Bilateral lower lobe predominant groundglass opacity is likely due to edema. This does not have the typicalappearance for Covid 19 pneumonia, but viral pneumonia cannot beexcluded. CABG has been performed. There is no pleural disease,adenopathy or acute osseous abnormality.IMPRESSION: No pulmonary embolism. A few small bilateral pulmonarynodules. Groundglass opacity favoring mild pulmonary edema. Impression: Normal sized left ventricle. Moderate left ventricular hypertrophy. Visually estimated ejection fraction 55% +/- 5%. Normal systolic function. Normal left ventricular diastolic function. Mild left atrial enlargement. Dilated right ventricle. No masses or thrombi. RVSP 17 COVID-19 Positive Radiology Results (Last 48 hours) [id number] -- 07/07/2020 18:23 CTA Chest PE Protocol (07/07/2020 16:00) Result: CT ANGIOGRAM OF THE CHESTHISTORY: Hematemesis. History of Covid19.COMPARISON: None.TECHNIQUE: Thin-section axial images were obtained through the chestduring the arterial phase of IV contrast administration. Coronal 3D MIPreconstructed images were also provided. This study was performed withtechniques to keep radiation doses as low as reasonably achievable,(ALARA). Individualized dose reduction techniques using automatedexposure control or adjustment of mA and/or kV according to the patientsize were employed.FINDINGS: Pulmonary arteries are well opacified and pulmonary side. Thethoracic aorta is normal. There is evidence of old calcifiedgranulomatous disease. At least 4 additional pulmonary nodules, all 6 mmor less in diameter, are seen. Bilateral lower lobe predominant groundglass opacity is likely due to edema. This does not have the typicalappearance for Covid 19 pneumonia, but viral pneumonia cannot beexcluded. CABG has been performed. There is no pleural disease,adenopathy or acute osseous abnormality.IMPRESSION: No pulmonary embolism. A few small bilateral pulmonarynodules. Groundglass opacity favoring mild pulmonary edema. Impression and Plan Pulmonary Hemoptysis -2 episodes of bright red blood approximating one tablespoon each, 3 episodes of minimal blood tinged sputum Probable bronchitis Recent COVID-19 Pneumonia- May 2020 Sleep Apnea not treated Previous smoker, 15+ pack years Cardiac H/O CAD with CABG ID Recent COVID-19 Pneumonia- May 2020 Renal Stable Endo Diabetes mellitus PLAN: Oxygen supplementation if needed for sat>94% Add Tranexamic nebs q8 x 3 doses Add short course of prednisone 40mg PO x 5 days Add Dextromethorphan/guaifenesin 30-600mg 1-2 tablets BID for antitussive No need for antimicrobial therapy at this time, doubt pneumonia Prophylaxis: SCDs Glycemic control per primary CODE STATUS: Full Patient had isolated episode of hemoptysis and blood-tinged sputum for approximately 1 hour today. Patient had recent diagnosis of Covid 19 and has had on and off coughing since that time. Most probable that patient has mild case of bronchitis in addition to patient is on chronic Brilinta. He had coughing episode which led to mild hemoptysis that has since resolved and has not been present for the last 7-8 hours. We will proceed with conservative measure/therapy at this time. No need for bronchoscopy. This was discussed with the patient in detail and he expresses understanding and agrees with plan of care. documented in this encounter Plan of Treatment Not on file documented as of this encounter Visit Diagnoses Not on filedocumented in this encounter Additional Health Concerns Infection Onset Date Last Indicated Resolved Time MRSA (C) 06/11/2023 06/11/2023 documented as of this encounter Care Teams Soap Maker Relationship Specialty Start Date End Date Annalise Carter, DO [address] [place] [address] PCP - General Family Medicine 06/06/23 Chuck Mei PA-C [address] [place] [address] Cardiology 11/01/23 documented as of this encounter
--- OUTSIDE RECORDS SUMMARY | 2025-05-05 12:22 | XMS_ITS | Encounter Summary ---
Author Organization [email or web address] ([place], [place], [place], [place]) Address [address] [place] [address] Care Team Providers Care Mobile Health Vehicle Operator Name Role Phone Annalise Carter DO Primary Care Provider [phone] Chuck Mei PA-C Unavailable [phone] Encounter Details Date Type Department Care Team (Late st Contact Info) Description 07/07/2020 Transcribed Document [facility] [place] [address] [place] [address] ProviderLars MD [address] [place] [address] Social History Tobacco Use Types Packs/Day Years [...] Lars ProviderMD - 07/07/2020 9:49 PM CDT Education-Respiratory Therapy Entered On: 07/08/2020 4:37 EDT Performed On: 07/07/2020 21:49 EDT by Nona Finney Lpn Teaching/Learning Assessment Barriers To Learning : None evident Readiness to Learn : Cooperative Highest Level of Education : Some college Nona Finney Lpn - 07/08/2020 4:36 EDT Education Topics, Respiratory Therapy Resp Therapy Education Grid Anatomy/Physiology related Treatment : Verbalizes understanding Anatomy/Physiology, Normal : Verbalizes understanding Artificial Airway Care : Verbalizes understanding Asthma Environmental Controls : Verbalizes understanding Asthma Treatment Plan/Follow-Up : Verbalizes understanding Asthma Trigger Avoidance : Verbalizes understanding Bronchial Hygiene : Verbalizes understanding Chest Physiotherapy : Verbalizes understanding Cough/Deep Breathing : Verbalizes understanding Cough/Splinting Technique : Verbalizes understanding Crisis Breathing : Verbalizes understanding Diagnostic Procedure : Verbalizes understanding Diaphragmatic Breathing : Verbalizes understanding Diet and Nutrition : Verbalizes understanding Discharge Planning : Verbalizes understanding Emergency Care Indications *Q : Verbalizes understanding Equipment Use : Verbalizes understanding Flutter valve : Verbalizes understanding Home Exercise : Verbalizes understanding Home Nebulizer Use : Verbalizes understanding Ed-Home Ventilation Management : Verbalizes understanding Incentive Spirometry : Verbalizes understanding Infection Control : Verbalizes understanding Infection Signs/Symptoms : Verbalizes understanding Laboratory Test : Verbalizes understanding Mechanical Ventilation : Verbalizes understanding Mechanical Ventilation Weaning : Verbalizes understanding Medication : Verbalizes understanding Metered Dose Inhaler/Spacer : Verbalizes understanding Nebulizer Treatment, Use, Side Effect : Verbalizes understanding Oral Care : Verbalizes understanding Outpatient Pulmonary Rehab : Verbalizes understanding Oxygen Therapy : Verbalizes understanding Pain Control Techniques : Verbalizes understanding Peak Flow Meter Use : Verbalizes understanding Physical Limitations : Verbalizes understanding Plan of Care : Verbalizes understanding Preoperative Instructions : Verbalizes understanding Pursed Lip Breathing : Verbalizes understanding Relaxation Techniques : Verbalizes understanding Safety : Verbalizes understanding Segmental Breathing Techniques : Verbalizes understanding Smoking Cessation : Verbalizes understanding Tracheostomy Care : Verbalizes understanding Treatments : Verbalizes understanding Respiratory Therapy, Other : Verbalizes understanding Nona Finney Lpn - 07/08/2020 4:36 EDT Education Topics, Asthma Asthma Education Grid Ed-Appropriate Exercise/Activity : Verbalizes understanding Control/Rescue Medications *Q : Verbalizes understanding Emergency Care Indications *Q : Verbalizes understanding Environmental Control *Q : Verbalizes understanding Inhaler/Spacer Technique *Q : Verbalizes understanding Peak Flow Meter Use : Verbalizes understanding : Verbalizes understanding Smoking Cessation : Verbalizes understanding Step Marr Treatment Plan : Verbalizes understanding Steroid Use : Verbalizes understanding Symptom Identification & Action Plan *Q : Verbalizes understanding Treatment Plan/Follow-up : Verbalizes understanding Trigger Avoidance *Q : Verbalizes understanding Asthma, Other : Verbalizes understanding Nona Finney Lpn - 07/08/2020 4:36 EDT Education Topics, Tracheostomy Tracheostomy Educ Grid Changing Ties : Verbalizes understanding Changing Trach Tube : Verbalizes understanding Communication : Verbalizes understanding Disease/Condition : Verbalizes understanding Equipment : Verbalizes understanding Infection Control : Verbalizes understanding Purpose : Verbalizes understanding Signs & Symptoms of Complications : Verbalizes understanding Site Care : Verbalizes understanding Suctioning : Verbalizes understanding Tube Care : Verbalizes understanding Tracheostomy, Other : Verbalizes understanding Nona Finney Lpn [...] Tobacco Cues : Verbalizes understanding Activities to [place] With Smoking Urges : Verbalizes understanding Basic Information About Quitting : Verbalizes understanding Tobacco Use Increases Chance of Relapse : Verbalizes understanding Withdrawal Symptoms Peak After Quitting : Verbalizes understanding Addictive Nature of Tobacco : Verbalizes understanding Nona Finney Lpn - 07/08/2020 4:36 EDT QuitLine Referral : Pt Refused Nona Finney Lpn - 07/08/2020 4:36 EDT Electronically signed by Jaren Gerardo Conversion Bradley Linebacker Crewmember Cerner at 12/27/2022 11:48 AM CDT documented in this encounter Plan of Treatment Not on file documented as of this encounter Visit Diagnoses Not on filedocumented in this encounter Additional Health Concerns Infection Onset Date Last Indicated Resolved Time MRSA (C) 06/11/2023 06/11/2023 documented as of this encounter Care Teams Mobile Health Vehicle Operator Relationship Specialty Start Date End Date Annalise Carter DO [address] [place] [address] PCP - General Family Medicine 06/06/23 Chuck Mei PA-C [address] , [facility] [address] [place] [id number] Cardiology 11/01/23 documented as of this encounter
--- OUTSIDE RECORDS SUMMARY | 2025-05-05 12:22 | XMS_ITS | Encounter Summary ---
Author Organization [employer] ([place], [place], [place], [place]) Address [address] [place] [address] Care Team Providers Care Physician Gynecologist Name Role Phone Annalise Carter DO Primary Care Provider Chuck Mei PA-C Unavailable [phone] Encounter Details Date Type Department Care Team (Late st Contact Info) Description 07/07/2020 Transcribed Document [facility] [place] [address] [place] [address] ProviderLars MD [address] [place] [address] Social History Tobacco Use Types [...] Lars ProviderMD - 07/07/2020 9:49 PM CDT Education-(VTE) / (DVT) Entered On: 07/08/2020 4:37 EDT Performed On: 07/08/2020 4:15 EDT by Nona Finney Lpn Teaching/Learning Assessment Barriers To Learning : None evident Highest Level of Education : Some college Nona Finney Lpn - 07/08/2020 4:37 EDT Education Topics: VTE/DVT Education Topics: VTE/DVT Activity Limitations/Expectations : Verbalizes understanding Antiembolic hose : Verbalizes understanding VTE/DVT prophylaxis : Verbalizes understanding Foot Pumps : Verbalizes understanding Medications : Verbalizes understanding Sequential Compression Device : Verbalizes understanding Smoking Cessation : Verbalizes understanding Risk for developing a VTE : Verbalizes understanding Signs and symptoms of a VTE : Verbalizes understanding Treatment/prophylaxis for VTE : Verbalizes understanding Encourage early ambulation : Verbalizes understanding VTE/DVT, Other : Verbalizes understanding Nona Finney, Félix - 07/08/2020 4:37 EDT Electronically signed by [facility], [facility] Conversion Web Press Operator Helper Offset Cerner at 12/27/2022 11:47 AM CDT documented in this encounter Plan of Treatment Not on file documented as of this encounter Visit Diagnoses Not on filedocumented in this encounter Additional Health Concerns Infection Onset Date Last Indicated Resolved Time MRSA (C) 06/11/2023 06/11/2023 documented as of this encounter Care Teams Physician Gynecologist Relationship Specialty Start Date End Date Annalise Carter, DO [address] [facility] [address] [place] [address] PCP - General Family Medicine 06/06/23 Chuck Mei PA-C [address] [place] [id number] Cardiology 11/01/23 documented as of this encounter
--- OUTSIDE RECORDS SUMMARY | 2025-05-05 12:22 | XMS_ITS | Encounter Summary ---
Author Organization [employer] ([place], [place], [place], [place]) Address [address] [place] [address] Care Team Providers Care Desolderer Name Role Phone Annalise Muro DO Primary Care Provider [phone] Chuck Mei PA-C Unavailable [phone] Encounter Details Date Type Department Care Team (Late st Contact Info) Description 06/03/2020 Transcribed Document [facility] [place] Medicine [facility] [place] [address] ProviderLars MD [address] [place] [address] Social History Tobacco Use Types [...] Cerner Conversion Note - Lars ProviderMD - 06/03/2020 9:53 AM CDT Patient: ROSARIO GREGG Age: 59 Years Sex: Male : 1960 Admit Date 05/23/2020 09:33 Discharge Date 05/29/2020 15:17 Primary Care Provider ANNALISE MURO DO-FAM Discharge Diagnosis Pneumonia 05/23/2020 J18.9 ICD-10-CM PNA (pneumonia) 05/23/2020 J18.9 ICD-10-CM Hypokalemia 05/23/2020 E87.6 ICD-10-CM COVID-19 virus infection 05/23/2020 U07.1 ICD-10-CM Hospital Course 59 year-old male with CAD who presents with difficulty breathing and cough. He has had respiratory symptoms for one week . Tested for COVID-19 on Monday, test results came back positive on Monday He reported fever, chills, cough, denies chest pain, denies nausea, denies vomiting, denies abdominal pain and denies back pain. Acute hypoxic respiratory failure secondary to COVID pneumonia and pulmonary edema He required aggressive respiratory support, but did not require mechanical ventilation. IV Antibiotics completed Steroids changed to oral route and tapering remdesivir completed Convalescent plasma completed Clinically improving Requiring less O2 supplementation. COVID Pneumonia: Completed therapies Acute Pulmonary edema Improved Steroid induced hyperglycemia - increase SSI, improved today and will continue to improve as steroids are weaned Increase activity with PT. Planning for discharge today with isolation reccs for another week. Oxygen supplementation requirements resolved Medically stable for discharge home per his request. He did not want to consider rehab or SNF transition therapy Vital Signs Oxygen Settings (Last) Oxygen Therapy Mode: Room air (05/29/20 11:42:00) Oxygen Flow Rate: 2 Liter/Min (05/28/20 13:49:00) Discharge Disposition Home Discharge Follow Up ANNALISE MURO - 11:00 AM LAINA BRADLEY - Within 2 to 4 weeks Discharge Medications (14) Active Aspirin Low Dose 81 mg, Oral, Daily atorvastatin 40 mg oral tablet 40 mg = 1 Tab, Oral, Daily Brilinta (ticagrelor) 90 mg oral tablet 90 mg = 1 Tab, Oral, BID diclofenac sodium 75 mg oral delayed release tablet 75 mg = 1 Tab, Oral, BID famotidine 20 mg oral tablet 20 mg = 1 Tab, Oral, BID furosemide 40 mg oral tablet 40 mg = 1 Tab, Oral, Daily HumaLOG 100 units/mL injectable solution 10 Units, SubCutaneous, TID With Meals Jardiance 10 mg oral tablet 10 mg = 1 Tab, Oral, QAM Lantus 75 Units, SubCutaneous, Daily lisinopril 5 mg oral tablet 5 mg = 1 Tab, Oral, Daily Lopressor 50 mg oral tablet 50 mg = 1 Tab, Oral, BID Singulair 10 mg oral tablet 10 mg = 1 Tab, Oral, At Bedtime tamsulosin 0.4 mg oral capsule 0.4 mg = 1 Cap, Oral, Daily Trulicity Pen 0.25 mg, SubCutaneous, Weekly Code Status No Code Status Order on Record Condition on Discharge Good Consulting Physicians No Consulting Physician on Record. Current Diet Order No qualifying data available. Pending Labs No Labs on Record Time Spent on Discharge Time for preparation of discharge was greater than 30 minutes. I personally evaluated the patient on the day of discharge. documented in this encounter Plan of Treatment Not on file documented as of this encounter Visit Diagnoses Not on filedocumented in this encounter Additional Health Concerns Infection Onset Date Last Indicated Resolved Time MRSA (C) 06/11/2023 06/11/2023 documented as of this encounter Care Teams Desolderer Relationship Specialty Start Date End Date Annalise Muro, DO [address] [facility] [address] [place] [address] PCP - General Family Medicine 06/06/23 Chuck Mei PA-C [address], [address] [place] [address] Cardiology 11/01/23 documented as of this encounter
--- OUTSIDE RECORDS SUMMARY | 2025-05-05 12:23 | XMS_ITS | Encounter Summary ---
Author Organization [employer] ([place], [place], [place], [place]) Address [address] [place] [address] Care Team Providers Care Head Machinist Name Role Phone Annalise Carter DO Primary Care Provider [phone] Chuck Mei PA-C Unavailable [phone] Encounter Details Date Type Department Care Team (Late st Contact Info) Description 07/08/2020 Transcribed Document [facility] [place] Medicine [address] [place] [address] ProviderLars MD [address] [place], [place] [id number] Social History Tobacco Use Types Packs/Day Years Used Date Smoking Tobacco: Never Assessed Sex and Gender Information Value Date Recorded Sex Assigned at Male 06/19/2023 4:40 PM CDT Legal Sex Male 1:15 PM CDT Gender Identity Male 06/19/2023 4:40 PM CDT Sexual Orientation Straight 06/19/2023 4: 40 PM CDT documented as of this encounter Miscellaneous Notes * Cerner Conversion Note - Historical ProviderMD - 07/08/2020 4:31 AM CDT Provider Notification Entered On: 07/08/2020 4:38 EDT Performed On: 07/08/2020 4:31 EDT by Nona Finney Lpn Provider Notification Provider Notified of Concerns/Results : Other: refuses bipap Nona Finney Lpn - 07/08/2020 4:38 EDT documented in this encounter Plan of Treatment Not on file documented as of this encounter Visit Diagnoses Not on filedocumented in this encounter Additional Health Concerns Infection Onset Date Last Indicated Resolved Time MRSA (C) 06/11/2023 06/11/2023 documented as of this encounter Care Teams Head Machinist Relationship Specialty Start Date End Date Annalise Carter, DO [address] [facility] [address] [place] [address] PCP - General Family Medicine 06/06/23 Chuck Mei PA-C [address], [facility] [address] [place] [address] Cardiology 11/01/23 documented as of this encounter
--- OUTSIDE RECORDS SUMMARY | 2025-05-05 12:23 | XMS_ITS | Encounter Summary ---
Author Organization [employer] ([place], [place], [place], [place]) Address [address] [place] [address] Care Team Providers Care Retail Loss Prevention Specialist Name Role Phone Annalise Carter DO Primary Care Provider [phone] Chuck Mei PA-C Unavailable [phone] Encounter Details Date Type Department Care Team (Late st Contact Info) Description 05/23/2020 Transcribed Document [facility] [address] [place] [address] ProviderLars MD [address] [place] [address] Social History Tobacco Use Types [...] Cerner Conversion Note - Historical ProviderMD - 05/23/2020 11:03 AM CDT Patient: ROSARIO GREGG Age: 59 years Sex: Male : 1960 Associated Diagnoses: None Author: KIKI CORTÉS MD-INF INFECTIOUS DISEASES CONSULTATION/INITIAL HOSPITAL VISIT REF MD: Dr. Arnold HOLM MD: Dr. Kiki Cortés Date of Admission: 05/23/2020 Date of Consultation: 05/23/2020 Reason for Consultation: Positive COVID-19 CC: Shortness of breath and cough HPI: 59-year-old male history of coronary artery disease/stent/CABG, type 2 diabetes mellitus, BPH, and hypertension presented to [facility] ED on 05/23/2024 worsening shortness of breath and cough for the last week. Tested for COVID-19 on this past Monday at [place], [place] with results back on Monday that were positive. Does not complain about fever or chills. Work-up showed T-max 99.5, 92% O2 sats on room air, creatinine 1.0, WBC 9500 with 85% neutrophils, and UA WBC 0-2. Chest x-ray shows cardiomegaly and diffuse infiltrates likely secondary to congestive heart failure. Blood cultures are pending. A repeat COVID-19 PCR is pending. He is currently on IV Rocephin, IV doxycycline, and Lovenox. ID was asked to evaluate and manage his antimicrobial therapy. Complains of cough and shortness of breath I examined the patient from outside the room with direct visualization due to the critical shortage of personal protective equipment in the setting of the COVID19 pandemic Allergies: Morphine Medications: Medications by Classification Antimicrobials cefTRIAXone - 2 Gram, IV Piggyback, Inj, [id number], infuse over 30 Minute(s), STAT doxycycline + Sodium Chloride 0.9% intravenous solution 100 - 100 mg, IV Piggyback, Inj, [id number], infuse over 2 Hour(s), STAT Immunology budesonide (Pulmicort Respules) - 0.5 mg, Nebulized Inhalation, Inh, RT_BID, Routine Anticoagulant enoxaparin (Lovenox) - 40 mg, SubCutaneous, Inj, At Bedtime, Routine Cardiovascular labetalol - 10 mg, IV Push, Inj, Q3H, PRN for Hypertension, Routine furosemide (Lasix) - 40 mg, IV Push, Inj, 1-Time, STAT furosemide (Lasix) - 40 mg, IV Push, Inj, Daily, order duration: 1 Day(s), Routine Respiratory albuterol-ipratropium (DuoNeb 0.5 mg-2.5 mg/3 mL inhalation - 3 mL, Nebulized Inhalation, Inh, RT_Q3H, PRN for Shortness of Breath, Routine albuterol-ipratropium (DuoNeb 0.5 mg-2.5 mg/3 mL inhalation - 3 mL, Nebulized Inhalation, Inh, RT_Q6H, Routine budesonide (Pulmicort Respules) - 0.5 mg, Nebulized Inhalation, Inh, RT_BID, Routine *Duplicate* guaiFENesin (Mucinex) - 600 mg, Oral, ER Tab, BID, Routine GI ondansetron (Zofran) - 4 mg, IV Push, Inj, Q4H, PRN for Nausea/Vomiting, Routine famotidine (Pepcid) - 20 mg, Oral, Tab, BID, Routine Endocrine insulin lispro (insulin lispro sliding scale) - Scale D:, SubCutaneous, Inj, AC and at Bedtime, Routine Pain Meds acetaminophen (Tylenol) - 650 mg, Oral, Tab, Q4H, PRN for Pain (Mild 1-3), Routine Vitamins magnesium oxide - 800 mg, Oral, Tab, TID, order duration: 1 Day(s), Routine potassium chloride (potassium chloride extended release) - 20 mEq, Oral, CR Tab, QID, order duration: 2 Day(s), Routine sodium chloride (Normal Saline Flush) - 10 mL, IV Push, Inj, See Comment, STAT PMH: Arthritis CAD - Coronary artery disease Cataract Chronic anxiety Chronic depression Diabetes mellitus type II Disorder of prostate Glaucoma Hard of hearing Heart valve HLD - Hyperlipidemia HTN (hypertension) Pneumonia Renal calculus Sleep apnea PSH: Coronary artery stent CABG FH: Mother dementia Father dementia SH: , lives in [facility]. Former smoker, rare alcohol use, and denies any illicit drug use. ROS: General: Denies fever, chills, sweats, but + malaise, fatigue, weakness Skin: Denies rashes, pruritus, or lesions HEENT: Denies dizziness, syncope, eye pain, blurry vision, ear pain, tinnitus, nasal congestion, rhinorrhea, sore throat, or dysphagia Respiratory; + shortness of breath, cough Cardio: Denies chest pain, palpitations, murmurs, or edema GI: Denies abdominal pain, nausea, vomiting, diarrhea, hematochezia, or melena : Denies flank pain, hematuria, or increased frequency, urgency, or burning of urination MS: Denies joint pain, swelling, or redness. Denies decreased ROM. No new back pain, Neuro: Denies seizures, strokes, numbness or tingling, headaches, gait irregularities, or confusion Psych: Denies anxiety or depression Endo: Denies Diabetes mellitus or thyroid problems Immuno: Denies immunocompromised, recurrent fevers, or recurrent infections Hemo: Denies bleeding disorder or excessive bruising 12 systems were reviewed and are negative except per HPI or above PE: Vitals Signs (last 24 hrs) Last Charted Minimum Maximum Temp 99.5 (MAY 23 08:) 99.5 (MAY 23:) 99.5 (MAY 23:) Mon HR 102 (MAY 23 10:00) 102 (MAY 23 10:00) 108 (MAY 23 09:00) Periph HR 109 (MAY 23:) 109 (MAY 23:) 109 (MAY 23 08:) Resp Rate H 27 (MAY 23 10:00) L 12 (MAY 23 09:30) H 27 (MAY 23 09:00) SBP H 163 (MAY 23 10:00) H 156 (MAY 23 08:) H 189 (MAY 23 08:30) DBP 80 (MAY 23 10:00) 70 (MAY 23 08:) H 91 (MAY 23 09:00) MAP 107 (MAY 23 10:00) 104 (MAY 23 09:30) 119 (MAY 23 09:00) SpO2 L 93 (MAY 23 10:00) L 92 (MAY 23 08:17) 95 (MAY 23 08:30) Exam: Constitutional: NAD, alert, WD/WN, appears older than stated age, ill appearing, obese HEENT: NC/AT, EOMI, no oral lesions. External ears, eyes, nose, and lip are normal Respiratory: non-labored breathing, 89% O2 sats on 2 L oxygen by nasal cannula per telemetry. no cough appreciated Cardio: Tachycardia per telemetry GI: non-distended, obese : no awad MS: Moving all 4 extremities Derm: No rashes on exposed skin Neuro: Unable to assess secondary to visual examination Psych: Unable to assess secondary to visual examination Labs: Labs (Last four charted values) WBC 9.5 (SEP 12) HB 13.6 (SEP 12) HCT 41.3 (MAY 12) Plt 185 (MAY 12) Na 142 (MAY 12) K L 2.9 (MAY 23) Cl H 115 (MAY 12) CO2 21 (MAY 12) BUN 16 (MAY 12) Cr 1.00 (MAY 23) Glu R H 140 (MAY 12) Ca L 7.3 (MAY 12) Lactic 1.5 (MAY 12) AST 22 (MAY 12) ALT 27 (MAY 23) ALK P 63 (MAY 23) T Bili 0.5 (MAY 23) PTN 6.4 (MAY 23) ALB L 2.6 (MAY 23) Creatinine Clearance (Current Encounter/Past 24 Hours) Creatinine Level 1.00 mg/dL 05/23/2020 09:02 Bun/Creatinine 16.0 05/23/2020 09:02 Estimated Creatinine Clearance 77.57 mL/Min 05/23/2020 08:21 Micro: 05/23 blood cultures pending 05/23 COVID-19 PCR pending Rad: Radiology Results (Last 48 hours) [id number] -- 05/23/2020 09:33 CR Chest 1 Vw Portable (05/23/2020 09:02) Result: PORTABLE CHESTHISTORY: Shortness of air.COMPARISON: November 2016.FINDINGS: The patient is status post median sternotomy for prior CABG.The heart is enlarged. The hilar structures are prominent. There aresmall bilateral pleural effusions and diffuse airspace and interstitialinfiltrates. There is no pneumothorax. The osseous structures areunremarkable.IMPRESSION: Cardiomegaly and diffuse infiltrates likely secondary tocongestive heart failure.Continued follow-up is recommended.Images reviewed, interpreted, and dictated by Dr. Eulalio Pena.Transcribed by Fior Dudley PA-C.I have personally viewed, interpreted and dictated the examination. Ihave read and agree with the above final transcribed report. Personally reviewed above CXR IMPRESSION: - COVID-19 pneumonia with acute hypoxic respiratory failure. Patient meets criteria for dexamethasone, Remdesivir, and convalescent plasma. Less likely coinfection with negative procalcitonin but will check sputum cx and urine antigens - Acute hypoxic respiratory failure/2 L oxygen by nasal cannula - Hypokalemia - Type 2 diabetes mellitus - Coronary artery disease/stent/CABG - Hypertension RECOMMENDATIONS/PLANS: - Monitor blood cultures - sputum cx, urine strep and legionella antigens - repeat COVID 19 PCR pending - Follow CBC, CMP, LDH, Ferritin, D dimer, CRP - type and cross stat - Continue Rocephin and doxycycline for now until co-infection ruled out - Continue Lovenox - Dexamethasone 6 mg daily for 10 days until 06/02 or upon discharge - Start Remdesivir 200 mg IV x1 dose and then 100 mg IV daily for 5 days total until 05/28 - Ordered 1 unit convalescent plasma 1 unit - Continue O2 support I discussed the following with the patient: 1) The FDA has authorized emergency use of COVID-19 convalescent plasma and remdesivir, which are not an FDA approved products. 2) We discussed that the patient has the option to accept or refuse administration of COVID-19 convalescent plasma and remdesivir 3) We discussed the risks and benefits of COVID-19 convalescent plasma including risk of transfusion reaction or transfusion related infection. Discussed risk/benefit for remdesivir. Patient agreed to proceed with both 4) We discussed alternative treatments and the risks and benefits of these alternative treatments. Kiki Cortés MD saw and examined patient, verified findings, reviewed labs and radiographic data, formulated diagnosis, plan for treatment, and all medical decision making. Micah Stout PA-C for Dr. Kiki Cortés Discussed with pulmonology I have edited this note to reflect my history, exam, assessment and plan. documented in this encounter Plan of Treatment Not on file documented as of this encounter Visit Diagnoses Not on filedocumented in this encounter Additional Health Concerns Infection Onset Date Last Indicated Resolved Time MRSA (C) 06/11/2023 06/11/2023 documented as of this encounter Care Teams Retail Loss Prevention Specialist Relationship Specialty Start Date End Date Annalise Carter, [address] [place] [address] PCP - General Family Medicine 06/06/23 Chuck Mei PA-C [address], [facility] [address] [place] [address] Cardiology 11/01/23 documented as of this encounter
--- OUTSIDE RECORDS SUMMARY | 2025-05-05 12:23 | XMS_ITS | Encounter Summary ---
Author Organization [employer] ([place], [place], [place], [place]) Address [address] [place] [address] Care Team Providers Care Buffet Server Name Role Phone Annalise Carter DO Primary Care Provider Chuck Mei PA-C Unavailable [phone] Encounter Details Date Type Department Care Team (Late st Contact Info) Description 05/24/[address] [facility] [place] [address] ProviderLars MD [address] [place] [id number] Social History Tobacco Use Types Packs/Day [...] Cerner Conversion Note - Historical ProviderMD - 05/24/2020 2:10 PM CDT Patient: ROSARIO GREGG Age: 59 years Sex: Male : 1960 Associated Diagnoses: None Author: IMCKI LAZAR MD-INT DATE OF SERVICE [ DOS ]: 05-24-2020 Basic Information SUBJECTIVE: Patient is seen and evaluated in CCU On Optiflow High Flow Oxygen Critically ill Review of Systems Constitutional: Fever, No chills. Eye: No recent visual problem, No icterus, No blurring, No visual disturbances. Ear/Nose/Mouth/Throat: No decreased hearing, No sore throat. Respiratory: Shortness of breath, Cough, Wheezing. Cardiovascular: No chest pain, No palpitations, No syncope. Gastrointestinal: No nausea, No vomiting, No hematemesis. Genitourinary: No dysuria, No hematuria. Hematology/Lymphatics: No bleeding tendency, No swollen lymph glands. Endocrine: No cold intolerance, No heat intolerance. Musculoskeletal: No joint pain, No muscle pain. Integumentary: No rash, No pruritus, No breakdown. Neurologic: No confusion, No numbness. Psychiatric: No depression, Not delusional. Health Status Allergies: Allergic Reactions (Selected) Severity Not Documented Morphine- No reactions were documented., No qualifying data available Current medications: (Selected) Inpatient Medications Ordered Combivent Respimat CFC free 100 mcg-20 mcg/inh inhalation aerosol: 1 Puff, Inhalation, RT_QID DuoNeb 0.5 mg-2.5 mg/3 mL inhalation solution: 3 mL, Nebulized Inhalation, RT_Q3H, PRN: Shortness of Breath Ecotrin: 81 mg, Oral, Daily Isopto Tears: 1 Drop, Eyes Both, TID, PRN: Dry Eyes Lantus: 15 Units, SubCutaneous, BID Lasix: 20 mg, IV Push, BID Lopressor: 50 mg, Oral, BID Lovenox: 40 mg, SubCutaneous, At Bedtime Mucinex: 600 mg, Oral, BID Nitrostat: 0.4 mg, SubLINgual, Q5Min, PRN: Chest Pain Normal Saline Flush: 10 mL, IV Push, See Comment Pepcid: 20 mg, Oral, BID Tylenol: 650 mg, Oral, Q4H, PRN: Pain (Mild 1-3) Zofran: 4 mg, IV Push, Q4H, PRN: Nausea/Vomiting atorvastatin: 40 mg, Oral, At Bedtime dexamethasone: 6 mg, Oral, Daily formoterol-mometasone 5 mcg-200 mcg/inh inhalation aerosol: 2 Puff, Inhalation, BID insulin lispro sliding scale: Scale D:, SubCutaneous, AC and at Bedtime labetalol: 10 mg, IV Push, Q3H, PRN: Hypertension lisinopril: 5 mg, Oral, Daily potassium chloride extended release: 20 mEq, Oral, QID remdesivir: 250 mL/Hr, IV Piggyback, [id number] ticagrelor: 90 mg, Oral, BID traMADol: 25 mg, Oral, Q6H, PRN: Pain (Moderate 4-6) Prescriptions Prescribed Brilinta (ticagrelor) 90 mg oral tablet: 1 Tab, Oral, BID, 60 Tab, 11 Refill(s) Fish Oil 1000 mg oral capsule: 1 Cap, Oral, BID, 60 Cap, 3 Refill(s) Lopressor 50 mg oral tablet: 1 Tab, Oral, BID, 60 Tab, 3 Refill(s) Nitrostat 0.4 mg sublingual tablet: 1 Tab, SubLINgual, Q5Min, PRN: Chest Pain, 24 Tab, 3 Refill(s) TriCor 145 mg oral tablet: 1 Tab, Oral, Daily, 30 Tab, 3 Refill(s) Documented Medications Documented Aspirin Low Dose: 81 mg, Oral, Daily, 0 Refill(s) Cymbalta 30 mg oral delayed release capsule: 1 Cap, Oral, Daily, 0 Refill(s) HumaLO Units, SubCutaneous, QID, 0 Refill(s) Lantus: 70 Units, SubCutaneous, At Bedtime, 0 Refill(s) atorvastatin 40 mg oral tablet: 1 Tab, Oral, Daily, 30 Tab, 0 Refill(s) famotidine 20 mg oral tablet: 1 Tab, Oral, BID, 30 Tab, 0 Refill(s) furosemide 40 mg oral tablet: 1 Tab, Oral, Daily, 30 Tab, 0 Refill(s) lisinopril 5 mg oral tablet: 1 Tab, Oral, Daily, 30 Tab, 0 Refill(s) tamsulosin 0.4 mg oral capsule: 1 Cap, Oral, Daily, 30 Cap, 0 Refill(s), Medications (24) Active Scheduled: (17) #NaCl 0.9% *FLUSH* inj 10 mL 10 mL, IV Push, See Comment albuterol-ipratropium CFC free 4 g inh 1 Puff, Inhalation, RT_QID aspirin EC 81 mg tab 81 mg 1 Tab, Oral, Daily atorvastatin 40 mg tab 40 mg 1 Tab, Oral, At Bedtime dexamethasone 4 mg tab 6 mg 1.5 Tab, Oral, Daily enoxaparin 40 mg/0.4 mL inj 40 mg 0.4 mL, SubCutaneous, At Bedtime famotidine 20 mg tab 20 mg 1 Tab, Oral, BID furosemide 20 mg/2 mL inj 20 mg 2 mL, IV Push, BID guaiFENesin 600 mg ER tab 600 mg 1 Tab, Oral, BID insulin glargine 1 unit/0.01 mL inj 15 Units 0.15 mL, SubCutaneous, BID insulin lispro 1 unit/0.01 mL inj Scale D:, SubCutaneous, AC and at Bedtime lisinopril 5 mg tab 5 mg 1 Tab, Oral, Daily metoprolol tartrate 50 mg tab 50 mg 1 Tab, Oral, BID mometasone/formoterol 200/5 mcg inh 2 Puff, Inhalation, BID potassium chloride CR 20 mEq tab 20 mEq 1 Tab, Oral, QID remdesivir , IV Piggyback, [id number] ticagrelor 90 mg tab 90 mg 1 Tab, Oral, BID Continuous: (0) PRN: (7) acetaminophen 325 mg tab 650 mg 2 Tab, Oral, Q4H albuterol-ipratropium inh 3 mL 3 mL, Nebulized Inhalation, RT_Q3H labetalol 20 mg/4 mL inj *SYRINGE* 10 mg 2 mL, IV Push, Q3H nitroglycerin 0.4 mg tab # 25 btl 0.4 mg 1 Tab, SubLINgual, Q5Min ocular lubricant 1% soln 0.4 mL 1 Drop, Eyes Both, TID ondansetron 4 mg/2 mL inj 4 mg 2 mL, IV Push, Q4H traMADol 50 mg tab 25 mg 0.5 Tab, Oral, Q6H Problem list: Medical CAD - Coronary artery disease / SNOMED CT [id number] / Confirmed Diabetes mellitus / SNOMED CT 863524269 / Confirmed History of obstructive sleep apnea / IMO [id number] / Confirmed HLD - Hyperlipidemia / SNOMED CT 853264709 / Confirmed HTN (hypertension) / SNOMED CT [id number] / Confirmed, Active Problems (21) Arthritis CAD - Coronary artery disease Cataract Chronic anxiety Chronic depression Coronary artery disease Diabetes mellitus Diabetes mellitus type II Disorder of prostate Glaucoma Hard of hearing Heart valve History of obstructive sleep apnea HLD - Hyperlipidemia HTN (hypertension) Hyperlipidemia Hypertension Pneumonia Renal calculus Sleep apnea Stented coronary artery OBJECTIVE: Physical Examination VS/Measurements Vitals Signs (last 24 hrs) Last Charted Minimum Maximum Temp 98.6 (MAY 24 21:00) 98.6 (MAY 24 21:00) 98.7 (MAY 24 00:00) Apical HR 85 (MAY 24 21:11) 85 (MAY 24 21:11) 90 (MAY 24 09:57) Mon HR 89 (MAY 24 21:05) 74 (MAY 24 03:30) 98 (MAY 24 18:00) Resp Rate H 31 (MAY 24 21:05) L 4 (MAY 24 11:31) H 45 (MAY 23 22:45) SBP 133 (MAY 24 21:00) 105 (MAY 24 03:00) 133 (MAY 24 10:00) DBP 74 (MAY 24 21:00) L 56 (MAY 24 09:00) 80 (MAY 24 01:00) MAP 99 (MAY 24 21:00) 78 (MAY 24 11:00) 100 (MAY 24 01:00) SpO2 95 (MAY 24 21:05) L 83 (MAY 23 22:15) 99 (MAY 24 11:31) General: Alert and oriented, Moderate distress. Eye: Extraocular movements are intact, Normal conjunctiva. Sclera: Not icteric. HENT: Normocephalic, Normal hearing, Oral mucosa is moist. Neck: Supple, Non-tender, No jugular venous distention, No lymphadenopathy. Respiratory: Breath sounds are equal, Symmetrical chest wall expansion, B/l Rales and Crackels . Cardiovascular: Normal rate, Regular rhythm, No murmur, No gallop, Good pulses equal in all extremities, No edema. Gastrointestinal: Soft, Non-tender, Non-distended, Normal bowel sounds, No organomegaly. Genitourinary: No costovertebral angle tenderness. Lymphatics: No lymphadenopathy neck, axilla, groin. Musculoskeletal: Normal range of motion, Normal strength, No tenderness, No swelling, No deformity. Integumentary: Warm, [place], Moist, No rash. Neurologic: Alert, Oriented, Normal sensory, Normal motor function, No focal deficits, Cranial Nerves II-XII are grossly intact, Normal deep tendon reflexes. Psychiatric: Cooperative, Appropriate mood & affect, Normal judgment. Review / Management Results review: Labs (Last four charted values) WBC H 10.6 (MAY 13) 9.5 (SEP 12) HB L 12.4 (MAY 13) 13.6 (MAY 12) HCT L 37.1 (MAY 13) 41.3 (SEP 12) Plt 213 (SEP 13) 185 (SEP 12) Na 142 (SEP 13) 142 (SEP 12) K 3.7 (MAY 13) 3.8 (SEP 12) L 2.9 (MAY 12) Cl H 113 (MAY 13) H 115 (MAY 12) CO2 24 (MAY 13) 21 (MAY 12) BUN 22 (MAY 13) 16 (MAY 12) Cr 1.00 (MAY 24) 1.00 (MAY 12) Glu R H 198 (MAY 24) H 140 (MAY 12) Ca L 7.9 (MAY 24) L 7.3 (MAY 12) Lactic 1.0 (MAY 24) 1.5 (MAY 12) PT 10.8 (MAY 23) 10.9 (MAY 23) INR 1.0 (MAY 23) 1.0 (MAY 23) PTT 32.4 (MAY 23) AST 23 (MAY 24) 22 (MAY 12) ALT 27 (MAY 13) 27 (MAY 12) ALK P 67 (MAY 13) 63 (MAY 23) T Bili 0.4 (MAY 24) 0.5 (MAY 23) PTN 7.1 (MAY 24) 6.4 (MAY 12) ALB L 2.7 (MAY 13) L 2.6 (MAY 12) Troponin <0.015 (MAY 24) <0.015 (MAY 23) , MAY 13 04:19 142 H 113 22 / H 198 3.7 24 1.00 \ MAY 24 04:19 \ L 12.4 / H 10.6 213 / L 37.1 \, Radiology Results (Last 48 hours) [id number] -- 05/23/2020 09:33 CR Chest 1 Vw [...] agree with the above final transcribed report. CR Chest 1 Vw Portable (05/24/2020 10:20) Result: PORTABLE CHEST 05/24/2020 10:05 AM HISTORY: Shortness of breath.COMPARISON: Previous day .FINDINGS: The heart is stable in size . There has been intervalworsening in the perihilar and bibasilar opacities . There is nopneumothorax . Status post median sternotomy. There is markedgastric distention.IMPRESSION: Interval worsening as above. Continued follow up recommended .Images reviewed, interpreted, and dictated by Eulalio Pena MD . Impression and Plan Acute hypoxic respiratory failure secondary to COVID pneumonia and pulmonary edema Placed on Oxygen Combivent inhaler IV Antibiotics COVID Pneumonia: placed on Rocephin and Doxycycline COVID-19 Positive: will repeat Test Acute Pulmonary edema will check Echo Iv Lasix consult Cardiology Gastrointestinal ( GI ) prophylaxis : I started the patient on Pepcid DEEP VEIN THROMBOSIS ( DVT ) prophylaxis: Placed patient of SQ Lovenox I placed the patient on sequential compression devices ( Compression Boots ) while in bed. CODE STATUS: FULL code. 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
--- OUTSIDE RECORDS SUMMARY | 2025-05-05 12:23 | XMS_ITS | Encounter Summary ---
Author Organization [employer] ([place], [place], [place], [place]) Address [address] [place] [address] Care Team Providers Care Fitness Technician Name Role Phone Annalise Muro DO Primary Care Provider [phone] Chuck Mei PA-C Unavailable Encounter Details Date Type Department Care Team (Late st Contact Info) Description 05/29/2020 Transcribed Document [facility] [place] [address] [place] [address] ProviderLars MD [address] [place] [address] Social History Tobacco Use Types [...] Notes * Cerner Conversion Note - Lars Jeffries MD - 05/29/2020 1:42 PM CDT [facility] [place] [address] ROSARIO GREGG :1960 Visit Time:05/23/2020 Your Visit Summary Your Care Team Admitting Physician - GIANLUCA CALVO MD Attending Physician - GIANLUCA CALVO MD Primary Care Physician - ANNALISE MURO DO-[facility] Referring Physician - RADHA FIELD MD Your Diagnosis COVID-19 virus infection Hypokalemia PNA (pneumonia), PNA (pneumonia), Pneumonia Sepsis, unspecified organism, Sepsis, unspecified organism Shortness of breath Discharge Vitals Heart Rate (Monitored) 72 What to do next Instructions From Your Care Team STOP the following medications: STOP Ibuprofen (Advil, Motrin) Discharge Follow Up Instructions: PCP 2 weeksQuarantine at home for 7 days after discharge due to COVID19 infection Activity: Discharge Activity: Activity as tolerated Diet: Discharge Diet: Resume usual diet as tolerated Follow-Up Appointments Follow Up with ANNALISE MURO When 06/01/2020 11:00 AM EDT Where: [address] [place] [address] [employer] (1) Medications What How Much When Instructions Next Dose dexamethasone (dexamethasone 4 mg oral tablet) 1.5 Tablet(s) Oral Every Day Duration: 5 Day(s) Pickup at [facility] Durable Medical Equipment (Insulin Syringes for Humalog Administration) 1 Each Miscellaneous See Comment Use to inject humalog three times a day before meals. #90 and No refills. [facility] Pickup at [facility] famotidine (famotidine 20 mg oral tablet) 1 Tablet(s) Oral Two Times A Day Pickup at [facility] insulin lispro (HumaLOG 100 units/ mL injectable solution) 10 Unit(s) SubCutaneous Three Times a Day With Meals [employer] Pickup at [facility] insulin glargine (Lantus) 75 Unit(s) SubCutaneous Every Day aspirin (Aspirin Low Dose) 81 Milligram(s) Oral Every Day atorvastatin (atorvastatin 40 mg oral tablet) 1 Tablet(s) Oral Every Day diclofenac (diclofenac sodium 75 mg oral delayed release tablet) 1 Tablet(s) Oral Two Times A Day dulaglutide (Trulicity Pen) 0.25 Milligram(s) SubCutaneous Weekly empagliflozin (Jardiance 10 mg oral tablet) 1 Tablet(s) Oral Every Morning furosemide (furosemide 40 mg oral tablet) 1 Tablet(s) Oral Every Day lisinopril (lisinopril 5 mg oral tablet) 1 Tablet(s) Oral Every Day metoprolol (Lopressor 50 mg oral tablet) 1 Tablet(s) Oral Two Times A Day montelukast (Singulair 10 mg oral tablet) 1 Tablet(s) Oral At Bedtime tamsulosin (tamsulosin 0.4 mg oral capsule) 1 Capsule(s) Oral Every Day ticagrelor (Brilinta (ticagrelor) 90 mg oral tablet) 1 Tablet(s) Oral Two Times A Day Pickup at [facility] Pharmacy Information [facility]: [address] [place], [place] [id number] [phone] Take your medications faithfully. Do NOT skip medication. Do NOT stop taking medications without the direction of a physician. Carry a list of your medications with you at all times, and take this medication list with you to your first follow up visit. Report any side effects. Avoid herbal remedies unless discussed with your physician. As part of your treatment plan, your physician may have prescribed a limited course of a controlled substance. This medication may be given to help people with moderate or severe pain or for other medical conditions, but there are risks involved with treatment. Common side effects may include nausea, constipation, drowsiness, sweating, itching, dry mouth, and rash. More serious side effects may include cognitive and motor impairment, like problems with thinking, concentrating, alertness, and movement (e.g. slowed reflexes), and driving and operating heavy machinery can be dangerous. It is important for you to talk to your physician if you have these side effects or questions. These controlled substances can produce physical dependence and be habit-forming if taken for an extended period of time, which means that the body has gotten used to them and may experience withdrawal symptoms if they are abruptly stopped. Withdrawal symptoms can include runny nose, sweating, goose bumps, diarrhea, abdominal cramping, rapid heartbeat, difficulty sleeping, and nervousness. Please dispose of unused and medications per your retail pharmacy guidance. Allergies morphine Immunizations This Visit No Immunizations Found Education Materials Prevent the Spread of COVID-19 if You Are Sick If you are sick with COVID-19 or think you might have COVID-19, follow the steps below to help protect other people in your home and community. Stay home except to get medical care. ??? Stay home. Most people with COVID-19 have mild illness and are able to recover at home without medical care. Do not leave your home, except to get medical care. Do not visit public areas. ??? Take care of yourself. Get rest and stay hydrated. ??? Get medical care when needed. Call your doctor before you go to their office for care. But, if you have trouble breathing or other concerning symptoms, call 911 for immediate help. ??? Avoid public transportation, ride-sharing, or taxis. Separate yourself from other people and pets in your home. ??? As much as possible, stay in a specific room and away from other people and pets in your home. Also, you should use a separate bathroom, if available. If you need to be around other people or animals in or outside of the home, wear a cloth face covering. ? See COVID-19 and Animals if you have questions about pets: https://www.cdc.gov/coronavirus/2019- ncov/faq.html#KOHER63edkyjwj Monitor your symptoms. ??? Common symptoms of COVID-19 include fever and cough. Trouble breathing is a more serious symptom that means you should get medical attention. ??? Follow care instructions from your healthcare provider and local health department. Your local health authorities will give instructions on checking your symptoms and reporting information. If you develop emergency warning signs for COVID-19 get medical attention immediately. Emergency warning signs include*: ??? Trouble breathing ??? Persistent pain or pressure in the chest ??? New confusion or not able to be woken ??? Bluish lips or face *This list is not all inclusive. Please consult your medical provider for any other symptoms that are severe or concerning to you. Call 911 if you have a medical emergency. If you have a medical emergency and need to call 911, notify the automatic furnace operator that you have or think you might have, COVID-19. If possible, put on a facemask before medical help arrives. Call ahead before visiting your doctor. ??? Call ahead. Many medical visits for routine care are being postponed or done by phone or telemedicine. ??? If you have a medical appointment that cannot be postponed, call your doctor's office. This will help the office protect themselves and other patients. If you are sick, wear a cloth covering over your nose and mouth. ??? You should wear a cloth face covering over your nose and mouth if you must be around other people or animals, including pets (even at home). ??? You don't need to wear the cloth face covering if you are alone. If you can't put on a cloth face covering (because of trouble breathing for example), cover your coughs and sneezes in some other way. Try to stay at least 6 feet away from other people. This will help protect the people around you. Note: During the COVID-19 pandemic, medical grade facemasks are reserved for healthcare workers and some first responders. You may need to make a cloth face covering using a scarf or bandana. Cover your coughs and sneezes. ??? Cover your mouth and nose with a tissue when you cough or sneeze. ??? Throw used tissues in a lined trash can. ??? Immediately wash your hands with soap and water for at least 20 seconds. If soap and water are not available, clean your hands with an alcohol-based hand medication aide that contains at least 60% alcohol. Clean your hands often. ??? Wash your handsoften with soap and water for at least 20 seconds. This is especially important after blowing your nose, coughing, or sneezing; going to the bathroom; and before eating or preparing food. ??? Use hand medication aide if soap and water are not available. Use an alcohol-based hand medication aide with at least 60% alcohol, covering all surfaces of your hands and rubbing them together until they feel dry. ??? Soap and water are the best option, especially if your hands are visibly dirty. ??? Avoid touching your eyes, nose, and mouth with unwashed hands. Avoid sharing personal household items. ??? Do not share dishes, drinking glasses, cups, eating utensils, towels, or bedding with other people in your home. ??? Wash these items thoroughly after using them with soap and water or put them in the hospital admissions officer. Clean all high-touch surfaces everyday. ??? Clean and disinfect high-touch surfaces in your sick room and bathroom. Let someone else clean and disinfect surfaces in common areas, but not your bedroom and bathroom. ??? If a caregiver or other person needs to clean and disinfect a sick person's bedroom or bathroom, they should do so on an as-needed basis. The caregiver/other person should wear a mask and wait as long as possible after the sick person has used the bathroom. High-touch surfaces include phones, remote controls, counters, tabletops, doorknobs, bathroom fixtures, toilets, keyboards, tablets, and bedside tables. ??? Clean and disinfect areas that may have blood, stool, or body fluids on them. ??? Use household supervisor slate splitting and disinfectants. Clean the area or item with soap and water or another detergent if it is dirty. Then use a household disinfectant. ? Be sure to follow the instructions on the label to ensure safe and effective use of the product. Many products recommend keeping the surface wet for several minutes to ensure germs are killed. Many also recommend precautions such as wearing gloves and making sure you have good ventilation during use of the product. ? Most EPA-registered household disinfectants should be effective. How to discontinue home isolation ??? People with COVID-19 who have stayed home (home isolated) can stop home isolation under the following conditions: ? If you will not have a test to determine if you are still contagious, you can leave home after these three things have happened: ? You have had no fever for at least 72 hours (that is three full days of no fever without the use medicine that reduces fevers) AND ? other symptoms have improved (for example, when your cough or shortness of breath has improved) AND ? at least 7 days have passed since your symptoms first appeared. ? If you will be tested to determine if you are still contagious, you can leave home after these three things have happened: ? You no longer have a fever (without the use of medicine that reduces fevers) AND ? other symptoms have improved (for example, when your cough or shortness of breath has improved) AND ? you received two negative tests in a row, 24 hours apart. Your doctor will follow CDC guidelines. In all cases, follow the guidance of your healthcare provider and local health department. The decision to stop home isolation should be made in consultation with your healthcare provider and state and local health departments. Local decisions depend on local circumstances. cdc.gov/coronavirus 12/27/2019 This information is not intended to replace advice given to you by your health care provider. Make sure you discuss any questions you have with your health care provider. Document Released: 12/24/2019 Document Revised: 12/27/2019 Document Reviewed: 12/24/2019 Else[employer] Patient Education ?? 2020 [email or web address] COVID-19 Frequently Asked Questions COVID-19 (coronavirus disease) is an infection that is caused by a large family of viruses. Some viruses cause illness in people and others cause illness in animals like camels, cats, and bats. In some cases, the viruses that cause illness in animals can spread to humans. Where did the coronavirus come from? In August 2019, [place] told the World Health Organization (WHO) of several cases of lung disease (human respiratory illness). These cases were linked to an open seafood and livestock market in the city of [place] [facility]. The link to the seafood and livestock market suggests that the virus may have spread from animals to humans. However, since that first outbreak in August, the virus has also been shown to spread from person to person. What is the name of the disease and the virus? Disease name Early on, this disease was called novel coronavirus. This is because scientists determined that the disease was caused by a new (novel) respiratory virus. The World Health Organization (WHO) has now named the disease COVID-19, or coronavirus disease. Virus name The virus that causes the disease is called severe acute respiratory syndrome coronavirus 2 (SARS-CoV-2). More information on disease and virus naming World Health Organization (WHO): www.who.int/emergencies/diseases/ynkny-atqoosnjgsm-6090/technical-guidance/nam bzo-lfz-qdypnkifrar-disease-(covid-2019)-ixo-umn-yutfy-lspj-khywuz-sm Who is at risk for complications from coronavirus disease? Some people may be at higher risk for complications from coronavirus disease. This includes older adults and people who have chronic diseases, such as heart disease, diabetes, and lung disease. If you are at higher risk for complications, take these extra precautions: ??? Avoid close contact with people who are sick or have a fever or cough. Stay at least 3???6 ft (1???2 m) away from them, if possible. ??? Wash your hands often with soap and water for at least 20 seconds. ??? Avoid touching your face, mouth, nose, or eyes. ??? Keep supplies on hand at home, such as food, medicine, and cleaning supplies. ??? Stay home as much as possible. ??? Avoid social gatherings and travel. How does coronavirus disease spread? The virus that causes coronavirus disease spreads easily from person to person (is contagious). There are also cases of community-spread disease. This means the disease has spread to: ??? People who have no known contact with other infected people. ??? People who have not traveled to areas where there are known cases. It appears to spread from one person to another through droplets from coughing or sneezing. Can I get the virus from touching surfaces or objects? There is still a lot that we do not know about the virus that causes coronavirus disease. Scientists are basing a lot of information on what they know about similar viruses, such as: ??? Viruses cannot generally survive on surfaces for long. They need a human body (host) to survive. ??? It is more likely that the virus is spread by close contact with people who are sick (direct contact), such as through: ? Shaking hands or hugging. ? Breathing in respiratory droplets that travel through the air. This can happen when an infected person coughs or sneezes on or near other people. ??? It is less likely that the virus is spread when a person touches a surface or object that has the virus on it (indirect contact). The virus may be able to enter the body if the person touches a surface or object and then touches his or her face, eyes, nose, or mouth. Can a person spread the virus without having symptoms of the disease? It may be possible for the virus to spread before a person has symptoms of the disease, but this is most likely not the main way the virus is spreading. It is more likely for the virus to spread by being in close contact with people who are sick and breathing in the respiratory droplets of a sick person's cough or sneeze. What are the symptoms of coronavirus disease? Symptoms vary from person to person and can range from mild to severe. Symptoms may include: ??? Fever. ??? Cough. ??? Tiredness, weakness, or fatigue. ??? Fast breathing or feeling short of breath. These symptoms can appear anywhere from 2 to 14 days after you have been exposed to the virus. If you develop symptoms, call your health care provider. People with severe symptoms may need hospital care. If I am exposed to the virus, how long does it take before symptoms start? Symptoms of coronavirus disease may appear anywhere from 2 to 14 days after a person has been exposed to the virus. If you develop symptoms, call your health care provider. Should I be tested for this virus? Your health care provider will decide whether to test you based on your symptoms, history of exposure, and your risk factors. How does a health care provider test for this virus? Health care providers will collect samples to send for testing. Samples may include: ??? Taking a swab of fluid from the nose. ??? Taking fluid from the lungs by having you cough up mucus (sputum) into a sterile cup. ??? Taking a blood sample. ??? Taking a stool or urine sample. Is there a treatment or vaccine for this virus? Currently, there is no vaccine to prevent coronavirus disease. Also, there are no medicines like antibiotics or antivirals to treat the virus. A person who becomes sick is given supportive care, which means rest and fluids. A person may also relieve his or her symptoms by using bzoa-cwu-hubqlga medicines that treat sneezing, coughing, and runny nose. These are the same medicines that a person takes for the common cold. If you develop symptoms, call your health care provider. People with severe symptoms may need hospital care. What can I do to protect myself and my family from this virus? You can protect yourself and your family by taking the same actions that you would take to prevent the spread of other viruses. Take the following actions: ??? Wash your hands often with soap and water for at least 20 seconds. If soap and water are not available, use alcohol-based hand medication aide. ??? Avoid touching your face, mouth, nose, or eyes. ??? Cough or sneeze into a tissue, sleeve, or elbow. Do not cough or sneeze into your hand or the air. ? If you cough or sneeze into a tissue, throw it away immediately and wash your hands. ??? Disinfect objects and surfaces that you frequently touch every day. ??? Avoid close contact with people who are sick or have a fever or cough. Stay at least 3???6 ft (1???2 m) away from them, if possible. ??? Stay home if you are sick, except to get medical care. Call your health care provider before you get medical care. ??? Make sure your vaccines are up to date. Ask your health care provider what vaccines you need. What should I do if I need to travel? Follow travel recommendations from your local health authority, the CDC, and WHO. Travel information and advice ??? Centers for Disease Control and Prevention (CDC): www.cdc.gov/coronavirus/2019-ncov/travelers/index.html ??? World Health Organization (WHO): www.who.int/emergencies/diseases/boauh-bmzgsdcckgs-4290/travel-advice Know the risks and take action to protect your health ??? You are at higher risk of getting coronavirus disease if you are traveling to areas with an outbreak or if you are exposed to travelers from areas with an outbreak. ??? Wash your hands often and practice good hygiene to lower the risk of catching or spreading the virus. What should I do if I am sick? General instructions to stop the spread of infection ??? Wash your hands often with soap and water for at least 20 seconds. If soap and water are not available, use alcohol-based hand medication aide. ??? Cough or sneeze into a tissue, sleeve, or elbow. Do not cough or sneeze into your hand or the air. ??? If you cough or sneeze into a tissue, throw it away immediately and wash your hands. ??? Stay home unless you must get medical care. Call your health care provider or local health authority before you get medical care. ??? Avoid public areas. Do not take public transportation, if possible. ??? If you can, wear a mask if you must go out of the house or if you are in close contact with someone who is not sick. Keep your home clean ??? Disinfect objects and surfaces that are frequently touched every day. This may include: ? Counters and tables. ? Doorknobs and light switches. ? Sinks and faucets. ? Electronics such as phones, remote controls, keyboards, computers, and tablets. ??? Wash dishes in hot, soapy water or use a hospital admissions officer. Air-dry your dishes. ??? Wash laundry in hot water. Prevent infecting other household members ??? Let healthy household members care for children and pets, if possible. If you have to care for children or pets, wash your hands often and wear a mask. ??? Sleep in a different bedroom or bed, if possible. ??? Do not share personal items, such as razors, toothbrushes, deodorant, corey, brushes, towels, and washcloths. Where to find more information Centers for Disease Control and Prevention (CDC) ??? Information and news updates: www.cdc.gov/coronavirus/2019-ncov World Health Organization (WHO) ??? Information and news updates: www.who.int/emergencies/diseases/fomoo-zicneyklhzm-2436 ??? Coronavirus health topic: www.who.int/health-topics/coronavirus ??? Questions and answers on COVID-19: www.who.int/news-room/q-a-detail/k-s-vebdutjnavywa ??? Global tracker: [employer] [place] [employer] (AAP) ??? Information for families: www.healthychildren.org/[place]/health-issues/conditions/chest-lungs/Pages/201 5-Brpos-Xbtxahhcsov.aspx The coronavirus situation is changing rapidly. Check your local health authority website or the CDC and WHO websites for updates and news. When should I contact a health care provider? Contact your health care provider if you have symptoms of an infection, such as fever or cough, and you: ? Have been near anyone who is known to have coronavirus disease. ? Have come into contact with a person who is suspected to have coronavirus disease. ? Have traveled outside of the country. When should I get emergency medical care? Get help right away by calling your local emergency services (911 in the [place] if you have: ? Trouble breathing. ? Pain or pressure in your chest. ? Confusion. ? Blue-tinged lips and fingernails. ? Difficulty waking from sleep. ? Symptoms that get worse. Let the emergency medical personnel know if you think you have coronavirus disease. Summary ??? A new respiratory virus is spreading from person to person and causing COVID-19 (coronavirus disease). ??? The virus that causes COVID-19 appears to spread easily. It spreads from one person to another through droplets from coughing or sneezing. ??? Older adults and those with chronic diseases are at higher risk of disease. If you are at higher risk for complications, take extra precautions. ??? There is currently no vaccine to prevent coronavirus disease. There are no medicines, such as antibiotics or antivirals, to treat the virus. ??? You can protect yourself and your family by washing your hands often, avoiding touching your face, and covering your coughs and sneezes. This information is not intended to replace advice given to you by your health care provider. Make sure you discuss any questions you have with your health care provider. Document Released: 12/24/2019 Document Revised: 12/24/2019 Document Reviewed: 12/24/2019 [email or web address] Patient Education ?? 2020 [employer]. COVID-19: How to Protect Yourself and Others Know how it spreads ??? There is currently no vaccine to prevent coronavirus disease 2019 (COVID-19). ??? The best way to prevent illness is to avoid being exposed to this virus. ??? The virus is thought to spread mainly from uagizh-no-hagepe. ? Between people who are in close contact with one another (within about 6 feet). ? Through respiratory droplets produced when an infected person coughs, sneezes or talks. ? These droplets can land in the mouths or noses of people who are nearby or possibly be inhaled into the lungs. ? Some recent studies have suggested that COVID-19 may be spread by people who are not showing symptoms. Everyone should Clean your hands often ??? Wash your hands often with soap and water for at least 20 seconds especially after you have been in a public place, or after blowing your nose, coughing, or sneezing. ??? If soap and water are not readily available, use a hand medication aide that contains at least 60% alcohol. Cover all surfaces of your hands and rub them together until they feel dry. ??? Avoid touching your eyes, nose, and mouth with unwashed hands. Avoid close contact ??? Avoid close contact with people who are sick. ??? Stay at home as much as possible. ??? Put distance between yourself and other people. ? Remember that some people without symptoms may be able to spread virus. ? This is especially important for people who are at higher risk of getting very sick.https://www.cdc.gov/coronavirus/2019-ncov/wkov-nyplm-whsvafltmak/people-a p-rjopyx-fjxb.html Cover your mouth and nose with a cloth face cover when around others ??? You could spread COVID-19 to others even if you do not feel sick. ??? Everyone should wear a cloth face cover when they have to go out in public, for example to the grocery store or to hand picker other necessities. ? Cloth face coverings should not be placed on young children under age 2, anyone who has trouble breathing, or is unconscious, incapacitated or otherwise unable to remove the mask without assistance. ??? The cloth face cover is meant to protect other people in case you are infected. ??? Do NOT use a facemask meant for a healthcare worker. ??? Continue to keep about 6 feet between yourself and others. The cloth face cover is not a substitute for social distancing. Cover coughs and sneezes ??? If you are in a private setting and do not have on your cloth face covering, remember to always cover your mouth and nose with a tissue when you cough or sneeze or use the inside of your elbow. ??? Throw used tissues in the trash. ??? Immediately wash your hands with soap and water for at least 20 seconds. If soap and water are not readily available, clean your hands with a hand medication aide that contains at least 60% alcohol. Clean and disinfect ??? Clean AND disinfect frequently touched surfaces daily. This includes tables, doorknobs, light switches, countertops, handles, desks, phones, keyboards, toilets, faucets, and sinks. https://www.cdc.gov/coronavirus/2019-ncov/myseaxg-hpidvhd-fadv/disinfecting-yo ur-home.html ??? If surfaces are dirty, clean them: Use detergent or soap and water prior to disinfection. cdc.gov/coronavirus 12/21/2019 This information is not intended to replace advice given to you by your health care provider. Make sure you discuss any questions you have with your health care provider. Document Released: 12/24/2019 Document Revised: 12/27/2019 Document Reviewed: 12/24/2019 [employer] Patient Education ?? 2020 [email or web address] COVID-19 COVID-19, also known as coronavirus disease or novel coronavirus, is caused by a type of virus that causes respiratory illness. This may lead to inflammation and the buildup of mucus and fluids in the airway of the lungs (pneumonia). There are many different coronaviruses. Most of these viruses only affect animals, but sometimes these viruses can change and infect people. What are the causes? This illness is caused by a virus. You may catch the virus by: ??? Breathing in droplets from an infected person's cough or sneeze. ??? Touching something, like a table or a doorknob, that was exposed to the virus (contaminated) and then touching your mouth, nose, or eyes. ??? Being around animals that carry the virus, or eating uncooked or undercooked meat or animal products that contain the virus. What increases the risk? You are more likely to develop this condition if you: ??? Live in or travel to an area with a COVID-19 outbreak. ??? Come in contact with a sick person who recently traveled to an area with a COVID-19 outbreak. ??? Provide care for or live with a person who is infected with COVID-19. What are the signs or symptoms? COVID-19 causes respiratory illness that can lead to pneumonia. Symptoms of pneumonia may include: ??? A fever. ??? A cough. ??? Difficulty breathing. How is this diagnosed? This condition may be diagnosed based on: ??? Your signs and symptoms, especially if: ? You live in an area with a COVID-19 outbreak. ? You recently traveled to or from an area where the virus is common. ? You provide care for or live with a person who was diagnosed with COVID-19. ??? A physical exam. ??? Lab tests, which may include: ? A nasal swab to take a sample of fluid from your nose. ? A throat swab to take a sample of fluid from your throat. ? A sample of mucus from your lungs (sputum). ? Blood tests. How is this treated? There is no medicine to treat COVID-19. Your health care provider will talk with you about ways to treat your symptoms. This may include rest, fluids, and eezp-zqn-sdcfegt medicines. Follow these instructions at home: Lifestyle ??? Use a cool-mist humidifier to add moisture to the air. This can help you breathe more easily. ??? Do not use any products that contain nicotine or tobacco, such as cigarettes, e-cigarettes, and chewing tobacco. If you need help quitting, ask your health care provider. ??? Rest at home as told by your health care provider. ??? Return to your normal activities as told by your health care provider. Ask your health care provider what activities are safe for you. General instructions ??? Take mjuw-ner-sfipsit and prescription medicines only as told by your health care provider. ??? Drink enough fluid to keep your urine pale yellow. ??? Keep all follow-up visits as told by your health care provider. This is important. How is this prevented? There is no vaccine to help prevent COVID-19 infection. However, there are steps you can take to protect yourself and others from this virus. To protect yourself: ??? Do not travel to areas where COVID-19 is a risk. The areas where COVID-19 is reported change often. To identify high-risk areas, check the CDC travel website: wwwnc.cdc.gov/travel/notices ??? If you live in, or must travel to, an area where COVID-19 is a risk, take precautions to avoid infection. ? Stay away from people who are sick. ? Stay away from places where there are animals that may carry the virus. This includes places where animals and animal products are sold. Note that both living and animals can carry the virus. ? Wash your hands often with soap and water. If soap and water are not available, use an alcohol-based hand medication aide. ? Avoid touching your mouth, face, eyes, or nose. To protect others: If you have symptoms, take steps to prevent the virus from spreading to others. ??? If you think you have a COVID-19 infection, contact your health care provider right away. Tell your health care team that you think you may have a COVID-19 infection. ??? Stay home. Leave your house only to seek medical care. ??? Do not travel while you are sick. ??? Wash your hands often with soap and water. If soap and water are not available, use alcohol-based hand medication aide. ??? Stay away from other members of your household. If possible, stay in your own room, separate from others. Use a different bathroom. ??? Make sure that all people in your household wash their hands well and often. ??? Cough or sneeze into a tissue or your sleeve or elbow. Do not cough or sneeze into your hand or into the air. ??? Wear a face mask. Where to find more information ??? Centers for Disease Control and Prevention: www.cdc.gov/coronavirus/2019-ncov/index.html ??? World Health Organization: www.who.int/health-topics/coronavirus Contact a health care provider if: ??? You have traveled to an area where COVID-19 is a risk and you have symptoms of the infection. ??? You have contact with someone who has traveled to an area where COVID-19 is a risk and you have symptoms of the infection. Get help right away if: ??? You have trouble breathing. ??? You have chest pain. Summary ??? COVID-19 is caused by a type of virus that causes respiratory illness. This may lead to inflammation and the buildup of mucus and fluids in the airway of the lungs (pneumonia). ??? You are more likely to develop this condition if you live in or travel to an area with a COVID-19 outbreak. ??? There is no medicine to treat COVID-19. Your health care provider will talk with you about ways to treat your symptoms. ??? Take steps to protect yourself and others from infection. Wash your hands often. Stay away from other people who are sick and wear a mask if you are sick. This information is not intended to replace advice given to you by your health care provider. Make sure you discuss any questions you have with your health care provider. Document Released: 10/03/2019 Document Revised: 12/24/2019 Document Reviewed: 10/03/2019 [email or web address] Patient Education ?? 2020 [email or web address] metoprolol (oral/injection) (me TOE pro lol) Kapspargo Sprpretty, Lopressor, Metoprolol Succinate ER, Metoprolol Tartrate, Toprol-XL What is the most important information I should know about metoprolol? You should not use this medicine if you have a serious heart problem (heart block, sick sinus syndrome, slow heart rate), severe circulation problems, severe heart failure, or a history of slow heart beats that caused fainting. What is metoprolol? Metoprolol is a beta-jim that affects the heart and circulation (blood flow through arteries and veins). Metoprolol is used to treat angina (chest pain) and hypertension (high blood pressure). It is also used to lower your risk of or needing to be hospitalized for heart failure. Metoprolol injection is used during the early phase of a heart attack to lower the risk of . Metoprolol may also be used for other purposes not listed in this medication guide. What should I discuss with my healthcare provider before taking metoprolol? You should not use this medicine if you are allergic to metoprolol, or other beta-blockers (atenolol, carvedilol, labetalol, nadolol, nebivolol, propranolol, sotalol, and others), or if you have: ?? a serious heart problem such as heart block, sick sinus syndrome, or slow heart rate; ?? severe circulation problems; ?? severe heart failure (that required you to be in the hospital); or ?? a history of slow heart beats that have caused you to faint. Tell your doctor if you have ever had: ?? asthma, chronic obstructive pulmonary disease (COPD), sleep apnea, or other breathing disorder; ?? diabetes (taking metoprolol may make it harder for you to tell when you have low blood sugar); ?? liver disease; ?? congestive heart failure; ?? problems with circulation (such as Raynaud's syndrome); ?? a thyroid disorder; or ?? pheochromocytoma (tumor of the adrenal gland). Do not give this medicine to a child without medical advice. Tell your doctor if you are or plan to become . It is not known whether metoprolol will harm an unborn baby. However, having high blood pressure during may cause complications such as diabetes or eclampsia (dangerously high blood pressure that can lead to medical problems in both mother and baby). The benefit of treating hypertension may outweigh any risks to the baby. Ask a doctor before using this medicine if you are breast-feeding. Metoprolol can pass into breast milk and may cause dry skin, dry mouth, diarrhea, constipation, or slow heartbeats in your baby. How should I take metoprolol? Follow all directions on your prescription label and read all medication guides or instruction sheets. Your doctor may occasionally change your dose. Use the medicine exactly as directed. Metoprolol should be taken with a meal or just after a meal. Take the medicine at the same time each day. Swallow the capsule whole and do not crush, chew, break, or open it. A Toprol XL tablet can be divided in half if your doctor has told you to do so. Swallow the half-tablet whole, without chewing or crushing. Measure liquid medicine carefully. Use the dosing syringe provided, or use a medicine dose-measuring device (not a kitchen spoon). You will need frequent medical tests, and your blood pressure will need to be checked often. If you need surgery, tell the surgeon ahead of time that you are using metoprolol. You should not stop using metoprolol suddenly. Stopping suddenly may make your condition worse. If you have high blood pressure, keep using this medicine even if you feel well. High blood pressure often has no symptoms. You may need to use metoprolol for the rest of your life. Store at room temperature away from moisture and heat. Metoprolol injection is given as an infusion into a vein. A healthcare provider will give you this injection in a medical setting where your heart and blood pressure can be monitored. Metoprolol injections are given for only a short time before switching you to the oral form of this medicine. What happens if I miss a dose? Skip the missed dose and use your next dose at the regular time. Do not use two doses at one time. What happens if I overdose? Seek emergency medical attention or call the Poison Help line at . What should I avoid while taking metoprolol? Avoid driving or hazardous activity until you know how this medicine will affect you. Your reactions could be impaired. Drinking alcohol can increase certain side effects of metoprolol. What are the possible side effects of metoprolol? Get emergency medical help if you have signs of an allergic reaction: hives; difficulty breathing; swelling of your face, lips, tongue, or throat. Call your doctor at once if you have: ?? very slow heartbeats; ?? a light-headed feeling, like you might pass out; ?? shortness of breath (even with mild exertion), swelling, rapid weight gain; or ?? cold feeling in your hands and feet. Common side effects may include: ?? dizziness, tired feeling; ?? depression, confusion, memory problems; ?? nightmares, trouble sleeping; ?? diarrhea; or ?? mild itching or rash. This is not a complete list of side effects and others may occur. Call your doctor for medical advice about side effects. You may report side effects to FDA at 5-956-QJF-8956. What other drugs will affect metoprolol? Tell your doctor about all your current medicines. Many drugs can affect metoprolol, especially: ?? any other heart or blood pressure medications; ?? epinephrine (Epi-Pen); ?? an antidepressant; ?? an ergot medicine--dihydroergotamine, ergonovine, ergotamine, methylergonovine; or ?? an MAO inhibitor--isocarboxazid, linezolid, phenelzine, rasagiline, selegiline, tranylcypromine. This list is not complete and many other drugs may affect metoprolol. This includes prescription and ttab-lhw-yhwoldd medicines, vitamins, and herbal products. Not all possible drug interactions are listed here. Where can I get more information? Your pharmacist can provide more information about metoprolol. Remember, keep this and all other medicines out of the reach of children, never share your medicines with others, and use this medication only for the indication prescribed. Every effort has been made to ensure that the information provided by [employer] is accurate, up-to-date, and complete, but no guarantee is made to that effect. Drug information contained herein may be time sensitive. [employer] information has been compiled for use by healthcare practitioners and consumers in the [place] and therefore [employer] does not warrant that uses outside of the [place] are appropriate, unless specifically indicated otherwise. [employer]'s drug information does not endorse drugs, diagnose patients or recommend therapy. [employer] drug information is an informational resource designed to assist licensed healthcare practitioners in caring for their patients and/or to serve consumers viewing this service as a supplement to, and not a substitute for, the expertise, skill, knowledge and judgment of healthcare practitioners. The absence of a warning for a given drug or drug combination in no way should be construed to indicate that the drug or drug combination is safe, effective or appropriate for any given patient. [facility] does not assume any responsibility for any aspect of healthcare administered with the aid of information [facility] provides. The information contained herein is not intended to cover all possible uses, directions, precautions, warnings, drug interactions, allergic reactions, or adverse effects. If you have questions about the drugs you are taking, check with your doctor, nurse or pharmacist. Copyright 3701-4991 [employer] Version: 17.03. Revision Date: 02/06/2019. dexamethasone (oral) (dex a METH a sone) [place], Dexamethasone Intensol, DexPak 10 Day Taperpak, DexPak 13 DayTaperpak, DexPak 6 DayTaperpak What is the most important information I should know about dexamethasone? You should not use this medicine if you have a fungal infection anywhere in your body. Tell your doctor about all your medical conditions, and all the medicines you are using. There are many other diseases that can be affected by steroid use, and many other medicines that can interact with steroids. What is dexamethasone? Dexamethasone is a steroid that prevents the release of substances in the body that cause inflammation. Dexamethasone is used to treat many different conditions such as allergic disorders, skin conditions, ulcerative colitis, arthritis, lupus, psoriasis, or breathing disorders. Dexamethasone may also be used for purposes not listed in this medication guide. What should I discuss with my healthcare provider before taking dexamethasone? You should not use dexamethasone if you are allergic to it, or if you have: ?? a fungal infection anywhere in your body. Tell your doctor if you have ever had: ?? liver disease (such as cirrhosis); ?? kidney disease; ?? a thyroid disorder; ?? malaria; ?? tuberculosis; ?? osteoporosis; ?? a muscle disorder such as myasthenia gravis; ?? diabetes (steroid medicine may increase glucose levels in your blood or urine); ?? glaucoma or cataracts; ?? herpes infection of the eyes; ?? stomach ulcers, ulcerative colitis, diverticulitis, inflammatory bowel disease; ?? depression or mental illness; ?? congestive heart failure; or ?? high blood pressure. Steroid medication affects your immune system. You may get infections more easily. Steroids can also worsen or reactivate an infection you've already had. Tell your doctor about any illness or infection you have had within the past several weeks. It is not known whether this medicine will harm an unborn baby. Tell your doctor if you are . You should not breast-feed while using dexamethasone. How should I take dexamethasone? Follow all directions on your prescription label and read all medication guides or instruction sheets. Your doctor may occasionally change your dose. Use the medicine exactly as directed. Your dose needs may change due to surgery, illness, stress, or a medical emergency. Tell your doctor about any such situation that affects you. This medicine can affect the results of certain medical tests. Tell any doctor who treats you that you are using dexamethasone. Do not stop using dexamethasone suddenly, or you could have unpleasant withdrawal symptoms. Ask your doctor how to safely stop using this medicine. In case of emergency, wear or carry medical identification to let others know you use dexamethasone. Store at room temperature away from moisture and heat. What happens if I miss a dose? Call your doctor for instructions if you miss a dose of dexamethasone. What happens if I overdose? Seek emergency medical attention or call the Poison Help line at . An overdose of dexamethasone is not expected to produce life threatening symptoms. [facility]DC use of high doses can lead to thinning skin, easy bruising, changes in body fat (especially in your face, neck, back, and waist), increased acne or facial hair, menstrual problems, impotence, or loss of interest in sex. What should I avoid while taking dexamethasone? Avoid being near people who are sick or have infections. Call your doctor for preventive treatment if you are exposed to chickenpox or measles. These conditions can be serious or even fatal in people who are using steroid medicine. Avoid drinking alcohol while you are taking dexamethasone. Do not receive a 'live' vaccine while using dexamethasone. The vaccine may not work as well during this time, and may not fully protect you from disease. Live vaccines include measles, mumps, rubella (MMR), polio, rotavirus, typhoid, yellow fever, varicella (chickenpox), and zoster (shingles). What are the possible side effects of dexamethasone? Get emergency medical help if you have signs of an allergic reaction: hives; difficulty breathing; swelling of your face, lips, tongue, or throat. Call your doctor at once if you have: ?? muscle tightness, weakness, or limp feeling; ?? blurred vision, tunnel vision, eye pain, or seeing halos around lights; ?? shortness of breath (even with mild exertion), swelling, rapid weight gain; ?? severe depression, unusual thoughts or behavior; ?? a seizure (convulsions); ?? bloody or tarry stools, coughing up blood; ?? fast or slow heart rate, weak pulse; ?? pancreatitis--severe pain in your upper stomach spreading to your back, nausea and vomiting; ?? low potassium level--leg cramps, constipation, irregular heartbeats, fluttering in your chest, increased thirst or urination, numbness or tingling; or ?? increased blood pressure--severe headache, blurred vision, pounding in your neck or ears, anxiety, nosebleed. Dexamethasone can affect growth in children. Tell your doctor if your child is not growing at a normal rate while using this medicine. Common side effects may include: ?? fluid retention (swelling in your hands or ankles); ?? increased appetite; ?? mood changes, trouble sleeping; ?? skin rash, bruising or discoloration; ?? acne, increased sweating, increased hair growth; ?? headache, dizziness; ?? nausea, vomiting, upset stomach; ?? changes in your menstrual periods; or ?? changes in the shape or location of body fat (especially in your arms, legs, face, neck, breasts, and waist). This is not a complete list of side effects and others may occur. Call your doctor for medical advice about side effects. You may report side effects to FDA at 3-441-BWS-4052. What other drugs will affect dexamethasone? Sometimes it is not safe to use certain medications at the same time. Some drugs can affect your blood levels of other drugs you take, which may increase side effects or make the medications less effective. Tell your doctor about all your current medicines. Many drugs can affect dexamethasone, especially: ?? an antibiotic or antifungal medicine; ?? control pills or hormone replacement therapy; ?? insulin or diabetes medications you take by mouth; ?? medicine to treat dementia or Parkinson's disease; ?? a blood thinner--warfarin, Coumadin, Jantoven; or ?? NSAIDs (nonsteroidal anti-inflammatory drugs)--aspirin, ibuprofen (Advil, Motrin), naproxen (Aleve), celecoxib, diclofenac, indomethacin, meloxicam, and others. This list is not complete and many other drugs may affect dexamethasone. This includes prescription and zytw-tal-mlfdglt medicines, vitamins, and herbal products. Not all possible drug interactions are listed here. Where can I get more information? Your pharmacist can provide more information about dexamethasone. Remember, keep this and all other medicines out of the reach of children, never share your medicines with others, and use this medication only for the indication prescribed. Every effort has been made to ensure that the information provided by [employer]') is accurate, up-to-date, and complete, but no guarantee is made to that effect. Drug information contained herein may be time sensitive. [employer] information has been compiled for use by healthcare practitioners and consumers in the [place] and therefore [employer] does not warrant that uses outside of the [place] are appropriate, unless specifically indicated otherwise. [employer] drug information does not endorse drugs, diagnose patients or recommend therapy. [employer] drug information is an informational resource designed to assist licensed healthcare practitioners in caring for their patients and/or to serve consumers viewing this service as a supplement to, and not a substitute for, the expertise, skill, knowledge and judgment of healthcare practitioners. The absence of a warning for a given drug or drug combination in no way should be construed to indicate that the drug or drug combination is safe, effective or appropriate for any given patient. [employer] does not assume any responsibility for any aspect of healthcare administered with the aid of information [employer] provides. The information contained herein is not intended to cover all possible uses, directions, precautions, warnings, drug interactions, allergic reactions, or adverse effects. If you have questions about the drugs you are taking, check with your doctor, nurse or pharmacist. Copyright 9207-6313 [employer]. Version: 7.01. Revision Date: 01/03/2018. famotidine (oral/injection) (fam OH ti devon) Heartburn Relief, Leader Acid Emergency Service Restorer, Pepcid, Pepcid AC, Pepcid AC Maximum Strength What is the most important information I should know about famotidine? Follow all directions on your medicine label and package. Tell each of your healthcare providers about all your medical conditions, allergies, and all medicines you use. What is famotidine? Famotidine is used to treat and prevent ulcers in the stomach and intestines. It also treats conditions in which the stomach produces too much acid, such as Marlin-Jimenez syndrome. Famotidine also treats gastroesophageal reflux disease (GERD) and other conditions in which acid backs up from the stomach into the esophagus, causing heartburn. Famotidine may also be used for purposes not listed in this medication guide. What should I discuss with my healthcare provider before taking famotidine? Heartburn can mimic early symptoms of a heart attack. Get emergency medical help if you have chest pain that spreads to your jaw or shoulder and you feel anxious or light-headed. You should not use this medicine if you are allergic to famotidine or similar medicines such as ranitidine (Zantac), cimetidine (Tagamet), or nizatidine (Axid). Ask a doctor or pharmacist if this medicine is safe to use if you have: ?? kidney disease; ?? liver disease; ?? cancer stomach; or ?? long QT syndrome (in you or a family member). Ask a doctor before using this medicine if you are or . How should I take famotidine? Use exactly as directed on the label, or as prescribed by your doctor. Famotidine oral is taken by mouth. Famotidine injection is given as an infusion into a vein. A healthcare provider will give you this injection if you are unable to take the medicine by mouth. You may take famotidine oral with or without food. Measure liquid medicine carefully. Use the dosing syringe provided, or use a medicine dose-measuring device (not a kitchen spoon). Most ulcers heal within 4 weeks of famotidine treatment, but it may take up to 8 weeks of using this medicine before your ulcer heals. Keep using the medication as directed. Call your doctor if the condition you are treating with famotidine does not improve, or if it gets worse while using famotidine. Famotidine may be only part of a complete program of treatment that also includes changes in diet or lifestyle habits. Follow all instructions of your doctor or dietitian. Store at room temperature away from moisture, heat, and light. Do not allow the liquid medicine to freeze. Throw away any unused famotidine liquid that is older than 30 days. What happens if I miss a dose? Take the medicine as soon as you can, but skip the missed dose if it is almost time for your next dose. Do not take two doses at one time. Because you will receive famotidine injection in a clinical setting, you are not likely to miss a dose. What happens if I overdose? Seek emergency medical attention or call the Poison Help line at . What should I avoid while taking famotidine? Avoid drinking alcohol. It can increase the risk of damage to your stomach. Avoid taking other stomach acid reducers unless your doctor has told you to. However, you may take an antacid (such as Maalox, Mylanta, Gaviscon, Milk of Magnesia, Rolaids, or Tums) with famotidine. What are the possible side effects of famotidine? Get emergency medical help if you have signs of an allergic reaction: hives; difficult breathing; swelling of your face, lips, tongue, or throat. Stop using famotidine and call your doctor at once if you have: ?? confusion, hallucinations, agitation, lack of energy; ?? a seizure; ?? fast or pounding heartbeats, sudden dizziness (like you might pass out); or ?? unexplained muscle pain, tenderness, or weakness especially if you also have fever, unusual tiredness, and dark colored urine. Some side effects may be more likely in older adults and in people who have severe kidney disease. Common side effects may include: ?? headache; ?? dizziness; or ?? constipation or diarrhea. This is not a complete list of side effects and others may occur. Call your doctor for medical advice about side effects. You may report side effects to FDA at 9-006-TZK-3567. What other drugs will affect famotidine? Famotidine oral can make it harder for your body to absorb other medicines you take by mouth. Tell your doctor if you are taking: ?? cefditoren; ?? dasatinib; ?? delavirdine; ?? fosamprenavir; or ?? tizanidine (if you are taking famotidine liquid). This list is not complete. Other drugs may affect famotidine oral or injection, including prescription and vgkf-eld-qjakrhl medicines, vitamins, and herbal products. Not all possible drug interactions are listed here. Where can I get more information? Your doctor or pharmacist can provide more information about famotidine. Remember, keep this and all other medicines out of the reach of children, never share your medicines with others, and use this medication only for the indication prescribed. Every effort has been made to ensure that the information provided by [employer]') is accurate, up-to-date, and complete, but no guarantee is made to that effect. Drug information contained herein may be time sensitive. [employer] information has been compiled for use by healthcare practitioners and consumers in the [place] and therefore [employer] does not warrant that uses outside of the [place] are appropriate, unless specifically indicated otherwise. [employer] drug information does not endorse drugs, diagnose patients or recommend therapy. [employer] drug information is an informational resource designed to assist licensed healthcare practitioners in caring for their patients and/or to serve consumers viewing this service as a supplement to, and not a substitute for, the expertise, skill, knowledge and judgment of healthcare practitioners. The absence of a warning for a given drug or drug combination in no way should be construed to indicate that the drug or drug combination is safe, effective or appropriate for any given patient. [employer] does not assume any responsibility for any aspect of healthcare administered with the aid of information [employer] provides. The information contained herein is not intended to cover all possible uses, directions, precautions, warnings, drug interactions, allergic reactions, or adverse effects. If you have questions about the drugs you are taking, check with your doctor, nurse or pharmacist. Copyright 7782-3036 [employer] Version: 17.. Revision Date: 12/04/2019. ticagrelor (bebeto KA grel or) Brilinta (ticagrelor) What is the most important information I should know about ticagrelor? You should not use ticagrelor if you have any active bleeding or a history of bleeding in the brain. Do not use this medicine just before heart bypass surgery. Ticagrelor may cause you to bleed more easily, which can be severe or life-threatening. Call your doctor or seek emergency medical attention if you have bleeding that will not stop, black or bloody stools, red or pink urine, or if you cough up blood or vomit that looks like coffee grounds. Tell your doctor about all your current medicines and any you start or stop using. Many drugs can interact with ticagrelor. Do not stop taking ticagrelor without first talking to your doctor, even if you have signs of bleeding. Stopping ticagrelor may increase your risk of a heart attack or stroke. What is ticagrelor? Ticagrelor prevents platelets in your blood from sticking together to form an unwanted blood clot that could block an artery. Ticagrelor is used together with aspirin to lower your risk of having a stroke or serious heart problems after you've had a heart attack or severe chest pain (angina). Ticagrelor may also be used for purposes not listed in this medication guide. What should I discuss with my healthcare provider before taking ticagrelor? You should not use ticagrelor if you are allergic to it, or if you have: ?? any active bleeding; or ?? a history of bleeding in the brain (such as from a head injury). Tell your doctor if you have ever had: ?? a stroke; ?? heart problems; ?? a surgery or bleeding injury; ?? bleeding problems; ?? a stomach ulcer or colon polyps; ?? liver disease; or ?? asthma, COPD (chronic obstructive pulmonary disorder) or other breathing problem. It is not known whether this medicine will harm an unborn baby. Tell your doctor if you are or plan to become . You should not breast-feed while using ticagrelor. How should I take ticagrelor? Follow all directions on your prescription label and read all medication guides or instruction sheets. Ticagrelor is taken together with aspirin. Use these medicines exactly as directed. Do not take more aspirin than your doctor has prescribed. Taking too much aspirin can make ticagrelor less effective. Take ticagrelor at the same time each day, with or without food. If you cannot swallow a tablet whole, crush the pill and mix it with water. Stir and drink this mixture right away. Add more water to the glass, stir, and drink right away. Ticagrelor keeps your blood from coagulating (clotting) and can make it easier for you to bleed, even from a minor injury. Contact your doctor or seek emergency medical attention if you have any bleeding that will not stop. To prevent excessive bleeding, you may need to stop using ticagrelor for a short time before a surgery, medical procedure, or dental work. Any healthcare provider who treats you should know that you are taking ticagrelor. Do not stop taking ticagrelor without first talking to your doctor, even if you have signs of bleeding. Stopping the medicine could increase your risk of a heart attack or stroke. Store at room temperature away from moisture and heat. What happens if I miss a dose? Electronically signed by Brittni Gerardo Conversion Bacteriologist Pharmaceutical Cerner at 12/27/2022 11:47 AM CDT documented in this encounter Plan of Treatment Not on file documented as of this encounter Visit Diagnoses Not on filedocumented in this encounter Additional Health Concerns Infection Onset Date Last Indicated Resolved Time MRSA (C) 06/11/2023 06/11/2023 documented as of this encounter Care Teams Fitness Technician Relationship Specialty Start Date End Date Annalise Muro, DO [address] [facility] [address] [place] [address] PCP - General Family Medicine 06/06/23 Chuck Mei PA-C [address], [facility] [address] [place] [address] Cardiology 11/01/23 documented as of this encounter
--- OUTSIDE RECORDS SUMMARY | 2025-05-05 12:23 | XMS_ITS | Encounter Summary ---
Author Organization [employer] ([place], [place], [place], [place]) Address [address] [place] [address] Care Team Providers Care Gluer And Slicer Hand Name Role Phone Emma Annalise Bre BENITEZ Primary Care Provider [phone] Chuck Mei PA-C Unavailable [phone] Encounter Details Date Type Department Care Team (Late st Contact Info) Description 07/08/2020 Transcribed Document [facility] Pulm & Critical Care Medicine [address] [facility] [address] [place] [id number] Orville Moon MD [address] [facility] [address] [place] [address] Social History Tobacco Use Types Packs/Day Years Used Date Smoking Tobacco: Never Assessed Sex and Gender Information Value Date Recorded Sex Assigned at Male 06/19/2023 4:40 PM CDT Legal Sex Male 1:15 PM CDT Gender Identity Male 06/19/2023 4:40 PM CDT Sexual Orientation Straight 06/19/2023 4: 40 PM CDT documented as of this encounter Miscellaneous Notes * Cerner Conversion Note - Orville Moon MD - 07/08/2020 3:49 PM EDT Patient: ROSARIO GREGG Age: 59 years Sex: Male : 1960 Associated Diagnoses: None Author: ORVILLE MOON MD Basic Information Date of consultation: 07/07/20 Date [...] and silica per pt No TB exposure 07/08: Patient comfortably in bed on room air with saturation of 93%. Denies any further hemoptysis or blood-tinged sputum. 07/07 COVID test NEGATIVE. Review of Systems Constitutional: No fever, No chills. Eye: No double vision. Ear/Nose/Mouth/Throat: No nasal congestion, No sore throat. Respiratory: No shortness of breath, No cough, No sputum production, No hemoptysis. Cardiovascular: No palpitations. Gastrointestinal: No vomiting, No diarrhea. Genitourinary: No hematuria. Endocrine: No polyuria. Immunologic: Not immunocompromised. Musculoskeletal: No neck pain. Integumentary: No pruritus. Neurologic: Alert and oriented X4. Health Status Current medications: Medications (14) Active Scheduled: (7) famotidine 20 mg tab 20 mg 1 Tab, Oral, Daily furosemide 40 mg/4 mL inj 40 mg 4 mL, IV Push, Q12H guaiF/dextromethor CR 600/30 mg tab 1 Tab, Oral, BID insulin lispro 1 unit/0.01 mL inj 76 kg - 100 kg scale, SubCutaneous, AC and at Bedtime levofloxacin 500 mg tab 500 mg 1 Tab, Oral, Daily predniSONE 20 mg tab 40 mg 2 Tab, Oral, Daily tranexamic acid 500 mg + syringe 1 Each 500 mg 5 mL, Nebulized Inhalation, Q8H Continuous: (0) PRN: (7) acetaminophen 325 mg tab 650 mg 2 Tab, Oral, Q4H albuterol-ipratropium inh 3 mL 3 mL, Nebulized Inhalation, Q6H cloNIDine 0.1 mg tab 0.1 mg 1 Tab, Oral, Q4H hydrALAZINE 20 mg/1 mL inj 10 mg 0.5 mL, IV Push, Q6H LORazepam 2 mg/mL inj 0.5 mg 0.25 mL, IV Push, Q4H ondansetron 4 mg/2 mL inj 4 mg 2 mL, IV Push, Q4H promethazine 25 mg/1 mL inj 6.25 mg 0.25 mL, IntraVENous, Q6H Physical Examination VS/Measurements Vitals Signs (last 24 hrs) Last Charted Minimum Maximum Temp 97.7 (JUL 08 12:00) 97.7 (JUL 08 12:00) 98.6 (JUL 07 19:47) Mon HR 95 (JUL 08 14:15) 84 (JUL 07 21:22) 101 (JUL 08 04:41) Periph HR 88 (JUL 07 19:47) 88 (JUL 07 19:47) 89 (JUL 07 17:21) Resp Rate 18 (JUL 08 06:13) 16 (JUL 07 17:21) H 25 (JUL 07 21:22) SBP 128 (JUL 08 12:00) 108 (JUL 08 06:13) H 146 (JUL 07 22:00) DBP 80 (JUL 08 12:00) L 59 (JUL 08 03:30) 80 (JUL 08 12:00) MAP 92 (JUL 08 12:00) 85 (JUL 08 06:13) 105 (JUL 07 22:00) SpO2 L 91 (JUL 08 12:00) L 90 (JUL 08 01:30) 97 (JUL 07 19:47) Intake & Output Totals Last 24 Hours (7a-7a) Intake (8 Events) Medications (345.66 mL) Output (0 Events) No output events found in the last 24 hours. Input Total: 345.66 mL Output Total: 0 mL Balance: 345.66 mL General: Alert and oriented, No acute distress. [...] review: Labs (Last four charted values) WBC 7.4 (JUL 08) 7.1 (JUL 07) HB L 12.2 (JUL 08) L 12.7 (JUL 07) HCT L 38.4 (JUL 08) L 39.4 (JUL 07) Plt 333 (JUL 08) 341 (JUL 07) Na 139 (JUL 08) 140 (JUL 07) K 4.1 (JUL 08) 3.5 (JUL 07) Cl 108 (JUL 08) 108 (JUL 07) CO2 27 (JUL 08) 26 (JUL 07) BUN 10 (JUL 08) 10 (JUL 07) Cr 1.00 (JUL 08) 1.00 (JUL 07) Glu R H 218 (JUL 08) H 187 (JUL 07) Ca 9.0 (JUL 08) 8.9 (JUL 07) Lactic 1.7 (JUL 08) PT 10.5 (JUL 07) INR 1.0 (JUL 07) PTT 32.0 (JUL 07) AST 18 (JUL 07) ALT 27 (JUL 07) ALK P 109 (JUL 07) T Bili 0.4 (JUL 07) PTN 7.6 (JUL 07) ALB L 3.2 (JUL 07) Troponin <0.015 (JUL 08) <0.015 (JUL 07) . JUL 08 04:11 139 108 10 / H 218 4.1 27 1.00 \ Blood Gases (Current Encounter/Past 24 Hours) No Blood Gas Results Found (Past 24 Hours) Radiology Results (Last 48 hours) [id number] -- 07/07/2020 18:23 CTA Chest PE Protocol [...] diameter, are seen. Bilateral lower lobe predominant groun dglass opacity is likely due to edema. This does not have the typical appearance for Covid 19 pneumonia, but viral pneumonia cannot beexcluded. CABG has been performed. There is no pleural disease,adenopathy or acute osseous abnormality. IMPRESSION: No pulmonary embolism. A few small bilateral pulmonary nodules. Ground glass opacity favoring mild pulmonary edema. Impression: Normal sized left ventricle. Moderate left ventricular hypertrophy. Visually estimated ejection fraction 55% +/- 5%. Normal systolic function. Normal left ventricular diastolic function. Mild left atrial enlargement. Dilated right ventricle. No masses or thrombi. RVSP 17 COVID-19 Positive Radiology Results (Last 48 hours) [id number] -- 07/07/2020 18:23 CTA Chest PE Protocol [...] arteries are well opacified and pulmonary side. The thoracic aorta is normal. There is evidence of old calcified granulomatous disease. At least 4 additional pulmonary nodules, all 6 mmor less in diameter, are seen. Bilateral lower lobe predominant groundglass opacity is likely due to edema. This does not have the typical appearance for Covid 19 pneumonia, but viral pneumonia cannot beexcluded. CABG has been performed. There is no pleural disease,adenopathy or acute osseous abnormality.IMPRESSION: No pulmonary embolism. A few small bilateral pulmonary nodules. Groundglass opacity favoring mild pulmonary edema. Impression and Plan Pulmonary Hemoptysis -2 episodes of bright red blood approximating one tablespoon each, 3 episodes of minimal blood tinged sputum Resolved Probable bronchitis in conjution of his use of Brilinta Recent COVID-19 Pneumonia- May 2020 Sleep Apnea not treated Previous smoker, 15+ pack years Cardiac H/O CAD with CABG ID Recent COVID-19 Pneumonia- May 2020 Renal Stable Endo Diabetes mellitus PLAN: Oxygen supplementation if needed for sat 90%-94% Add Tranexamic nebs q8 x 3 doses Add short course of prednisone 40mg PO x 5 days Add Dextromethorphan/guaifenesin 30-600mg 1-2 tablets BID for antitussive No need for antimicrobial therapy at this time, doubt pneumonia Prophylaxis: SCDs Glycemic control per primary Needs follow up CT Chest in 6 month for pulmonary nodules follow up. Patient with smoking hx. Discussed with Mr Gregg CODE STATUS: Full Patient had isolated episode [...] documented as of this encounter Care Teams Gluer And Slicer Hand Relationship Specialty Start Date End Date Annalise Carter, DO [address] [facility] [address] [place] [address] PCP - General Family Medicine 06/06/23 Chuck Mei PA-C [address] [place] [address] Cardiology 11/01/23 documented as of this encounter
--- OUTSIDE RECORDS SUMMARY | 2025-05-05 12:23 | XMS_ITS | Encounter Summary ---
Author Organization [employer] ([place], [place], [place], [place]) Address [address] [place] [address] Care Team Providers Care Fireproof Door Assembler Name Role Phone Annalise Carter DO Primary Care Provider [phone] Chuck Mei PA-C Unavailable Encounter Details Date Type Department Care Team (Late st Contact Info) Description 05/28/2020 Transcribed Document [facility] [place] [address] ProviderLars MD [address] [place] [address] Social History Tobacco Use Types [...] Cerner Conversion Note - Lars ProviderMD - 05/28/2020 4:14 PM CDT On Going Discharge Planning Entered On: 05/28/2020 16:16 EDT Performed On: 05/28/2020 16:14 EDT by EUGENIA GODFREY, RN-Musical String MakerResidential Therapist Progress Note Discharge Arrangements : Patient Post-Acute Information Patient Name: ROSARIO GREGG Gender: Male : [birth year] Age: 59 Years No Post-Acute Placement(s) Listed No Post-Acute Service(s) Listed No [place] Referral(s) Listed Barriers to Discharge Identified : Clinical Condition of Patient Barriers to Discharge Unresolved : Clinical Condition of Patient Designation of Choice Signed : No Patient Offered Choice/Affiliations Explained : No Were Referrals Sent to Post Acute Providers : No Does the Patient have a Floor to [facility] Benefit? : No Is the Patient Meeting Medical Necessity : Yes Physician Agreeable to Move Forward with D/C Plan? : No Did you Attend Multidisciplinary Rounds? : No EUGENIA GODFREY, RN-Musical String Maker - 05/28/2020 16:14 EDT Narrative Progress Note Narrative Progress Note : HD 5. Pt continues in isolation for COVID 19. Continues on 2 liters per nasal cannula. Done with Remdesivir. Continues on PO steroids. Discharge plan is home with possible home health and home oxygen. Historical Progress Note : HD 4. Pt remains in isolation for COVID 19. WBC 11.3, O2 at 3 liters. Contniues on Remdesivir IV and Dexamethasone PO. OT/PT evals pending. Discharge plan is short term rehab vs home with home health. EUGENIA GODFREY, RN-Musical String Maker - 05/27/20 16:27:47 MDR 9-15. covid: 19 positive. orders for PT/OT. transfer to . referral to [facility] for rehab. discuss with case management staff. MERLYN HERNANDEZ RN-Musical String Maker - 05/27/20 07:33:43 EUGENIA GODFREY, RN-Musical String Maker - 05/28/2020 16:14 EDT Electronically signed by Jaren Gerardo Conversion Assistant Branch Operations Manager Cerner at 12/27/2022 12:01 PM CDT documented in this encounter Plan of Treatment Not on file documented as of this encounter Visit Diagnoses Not on filedocumented in this encounter Additional Health Concerns Infection Onset Date Last Indicated Resolved Time MRSA (C) 06/11/2023 06/11/2023 documented as of this encounter Care Teams Fireproof Door Assembler Relationship Specialty Start Date End Date Annalise Carter, [address] [facility] [address] [place] [address] PCP - General Family Medicine 06/06/23 Chuck Mei PA-C [address] [place] [address] Cardiology 11/01/23 documented as of this encounter
--- OUTSIDE RECORDS SUMMARY | 2025-05-05 12:23 | XMS_ITS | Encounter Summary ---
Author Organization [email or web address] ([place], [place], [place], [place]) Address [address] [place] [address] Care Team Providers Care Cutter Helper Name Role Phone Annalise Carter DO Primary Care Provider [phone] Chuck Mei PA-C Unavailable [phone] Encounter Details Date Type Department Care Team (Late st Contact Info) Description 05/23/2020 Transcribed Document [facility] Family Medicine [facility] [place] [address] ProviderLars MD [address] [place] [address] Social History Tobacco Use Types Packs/Day [...] Conversion Note - Lars Jeffries MD - 05/23/2020 8:29 AM CDT Patient: ROSARIO GREGG Age: 59 years Sex: Male : 1960 Associated Diagnoses: Pneumonia; Sepsis; COVID-19 virus infection; Hypokalemia Author: RADHA FIELD MD Basic Information Additional information: Chief Complaint from Nursing Triage Note : Chief Complaint 05/23/2020 8:17 EDT Chief Complaint COVID positive patient from home via [facility] due to SOA- Initial SPO2 88% RA, increased to 95 % via 2 LNC. Wheezing to upper lobes [facility]. . History of Present Illness The patient presents with difficulty breathing and cough. The onset was 1 weeks ago. The course/duration of symptoms is worsening. Degree at onset mild. Degree at present moderate. The Exacerbating factors is exertion. The Relieving factors is rest. Risk factors consist of coronary artery disease, diabetes mellitus, hypertension, pneumonia, Tested for COVID-19 on Monday, test results came back positive on Monday., not congestive heart failure, not pulmonary embolism, not deep vein thrombosis, not chronic obstructive pulmonary disease, not asthma and not smoking. Associated symptoms: fever, chills, cough, denies chest pain, denies nausea, denies vomiting, denies abdominal pain and denies back pain. Review of Systems Constitutional symptoms: Fever, chills, no sweats, no weakness, no fatigue. Skin symptoms: No rash, Eye symptoms: Vision unchanged, no pain, no discharge, no blurred vision. ENMT symptoms: No ear pain, no sore throat, no nasal congestion. Respiratory symptoms: Shortness of breath, cough. Cardiovascular symptoms: No chest pain, no palpitations, no syncope. Gastrointestinal symptoms: No abdominal pain, no nausea, no vomiting, no diarrhea. Genitourinary symptoms: No dysuria, no hematuria. Musculoskeletal symptoms: No back pain, no Joint pain. Neurologic symptoms: No headache, no dizziness, no numbness, no weakness. Health Status Allergies: Allergic Reactions (Selected) Severity Not Documented Morphine- No reactions were documented.. Medications: (Selected) Inpatient Medications Ordered Normal Saline Flush: 10 mL, IV Push, See Comment cefTRIAXone: 2 Gram, 100 mL/Hr, IV Piggyback, [id number] dexamethasone: 10 mg, IV Push, 1-Time doxycycline: 100 mg, IV Piggyback, [id number] Prescriptions Prescribed Brilinta (ticagrelor) 90 mg oral [...] 1 Cap, Oral, Daily, 30 Cap, 0 Refill(s). Past Medical/ Family/ Social History Surgical history: cabg., Reviewed as documented in chart. Family history: Dementia Father Mother , Reviewed as documented in chart. Social history: Social & Psychosocial Habits Alcohol 11/17/2016 Alcohol Use History, Social Habits Yes Date/Time of Last Drink a little wine or beer 3 times a yr Alcohol Use Frequency Rarely Substance Abuse 11/17/2016 Recreational Drug Use History No Recreational Drug Use Last 12 Months No Tobacco 11/17/2016 Smoking Status Former smoker Month Tobacco Last Used Quit 6 years ago , Reviewed as documented in chart. Problem list: Active Problems (20) Arthritis CAD - Coronary artery disease Cataract Chronic anxiety Chronic depression Coronary artery disease Diabetes mellitus Diabetes mellitus type II Disorder of prostate Glaucoma Hard of hearing Heart valve HLD - Hyperlipidemia HTN (hypertension) Hyperlipidemia Hypertension Pneumonia Renal calculus Sleep apnea Stented coronary artery , per nurse's notes. Physical Examination Vital Signs Vital Signs/Vital Measures 05/23/2020 8:17 EDT Systolic Blood Pressure 156 mmHg HI Diastolic Blood Pressure 70 mmHg Temperature Source Oral Temperature Mode Fahrenheit Temperature, Fahrenheit 99.5 Deg F Clinical Temperature, C 37.5 Deg C Peripheral Pulse Rate 109 bpm HI Respiratory Rate 19 Breaths/Min Oxygen Saturation 92 % LOW Oxygen Therapy Mode Room air . Measurements 05/23/2020 8:17 EDT Height Source Stated Height Entry Format [place] Height/Length, ALBANIAN (ft) 5 ft Height/Length ALBANIAN 9 Inch CLINICALHEIGHT 175.26 cm [place] Body Weight 69.73 kg Weight Source, ED Critical estimated dosing weight Weight Entry Format [place] Weight Swiss lb 224 lb CLINICALWEIGHT 101.82 kg Body Surface Area (BSA) 2.17 m2 Body Mass Index 33.1 kg/m2 HI . Oxygen Saturation 05/23/2020 8:17 EDT Oxygen Saturation 92 % LOW . General: Alert, no acute distress. Skin: Warm. Head: Normocephalic. Neck: Supple. Eye: Sclera: not icteric. Ears, nose, mouth and throat: Oral mucosa moist. Cardiovascular: Regular rate and rhythm, No murmur, Normal peripheral perfusion, No edema. Respiratory: Breath sounds are equal, Respirations: Tachypneic, Breath sounds: Bilateral, diminished. Chest wall: No tenderness. Back: Nontender. Gastrointestinal: Soft, Nontender, Non distended, Normal bowel sounds. Neurological: No focal neurological deficit observed. Lymphatics: No lymphadenopathy. Psychiatric: Cooperative. Medical Decision Making Documents reviewed: Emergency department nurses' notes. Electrocardiogram: Time 05/23/2020 08:36:00, rate 105, EP Interp, Sinus tachycardia, left axis deviation, no acute ischemic changes, no STEMI.. Results review: Lab results : Lab Results 05/23/2020 8:29 EDT Sodium Level 142 mmol/L Potassium Level 2.9 mmol/L LOW Chloride Level 115 mmol/L HI Carbon Dioxide Level 21 mmol/L Anion Gap 9 Glucose Level 140 mg/dL HI Blood Urea Nitrogen 16 mg/dL Creatinine Level 1.00 mg/dL eGFR >60 mL/min/1.73m2 eGFR NonAfrican >60 mL/min/1.73m2 Bun/Creatinine 16.0 Calcium Level 7.3 mg/dL LOW Protein Total 6.4 Gram/dL Albumin Level 2.6 Gram/dL LOW Globulin 3.8 Gram/dL A/G Ratio 0.7 LOW Bilirubin Total 0.5 mg/dL Alk Phos 63 Units/Liter AST 22 Units/Liter ALT 27 Units/Liter Lactic Acid Level 1.5 mmol/L WBC 9.5 K/uL RBC 4.51 Million/uL Hgb 13.6 g/dL Hct 41.3 % MCV 91.6 fL MCH 30.2 pg MCHC 32.9 Gram/dL Platelet Count 185 K/uL MPV 10.0 fL RDW 13.2 % Neut % 85.2 % HI Neut # 8.11 K/uL HI Lymph % 10.6 % LOW Lymph # 1.01 x10(3)/uL Perry % 3.5 % Perry # 0.33 K/uL Eos % 0.0 % Eos # 0.00 x10(3)/uL Baso % 0.2 % Baso # 0.02 x10(3)/uL Slide Review No IG# 0.05 x10(3)/uL IG% 0.50 % . Chest X-Ray: Interpretation by Emergency Physician, Bilateral infiltrates. Radiology results: No Radiology Results Found. Impression and Plan Diagnosis Pneumonia - Discharge, Medical Sepsis - Discharge, Medical COVID-19 virus infection - Discharge, Medical Hypokalemia - Discharge, Medical Plan Condition: Guarded. Disposition: Admit Admit/Transfer/Discharge: Admit to Inpatient (Order): Start: 05/23/2020 9:33 EDT, Admit reason: sepsis, pneumonia, COVID 19, hypokalemia, Estimated length of stay 2 Midnights or LONGER, Level of Care: Med-Surg with telemetry, Admitting: GIANLUCA CALVO MD. Counseled: Patient, Regarding diagnosis, Regarding diagnostic results, Regarding treatment plan, Patient indicated understanding of instructions. Notes: Patient presented with increased shortness of breath and cough. Patient septic with pneumonia and tested positive for COVID-19 on Monday. Given small normal saline bolus due to COVID-19 status and hemodynamically stable. Given IV doxycycline, Rocephin, and dexamethasone. Patient hemodynamically stable. Discussed with hospitalist Dr. Calvo, who accepts admission for further evaluation and care.. documented in this encounter Plan of Treatment Not on file documented as of this encounter Visit Diagnoses Not on filedocumented in this encounter Additional Health Concerns Infection Onset Date Last Indicated Resolved Time MRSA (C) 06/11/2023 06/11/2023 documented as of this encounter Care Teams Cutter Helper Relationship Specialty Start Date End Date Annalise Carter, DO [address] [facility] [address] [place] [address] PCP - General Family Medicine 06/06/23 Chuck Mei PA-C [address], [facility] [address] [place] [address] Cardiology 11/01/23 documented as of this encounter
--- OUTSIDE RECORDS SUMMARY | 2025-05-05 12:23 | XMS_ITS | Encounter Summary ---
Author Organization [employer] ([place], [place], [place], [place]) Address [address] [place] [address] Care Team Providers Care Family Day Care Provider Name Role Phone Emma Annalisegi Díaz DO Primary Care Provider [phone] Chuck Mei PA-C Unavailable [phone] Reason for Visit * Reason Comments Medication Refill Encounter Details Date Type Department Care Team (Late st Contact Info) Description 08/18/2023 Refill [facility] Cardiology [address] [place] [address] Oniel Barney MD [address] [facility] [address] [place] [address] Atherosclerotic heart disease of [place]mi[place] coronary artery without angina pectoris Social History Tobacco Use Types Packs/Day Years Used Date Smoking Tobacco: Never Smokeless Tobacco: Never Alcohol Use Standard Drinks/Week Comments Not Currently 0 (1 standard drink = 0.6 oz pur e alcohol) PRAPARE - Transportation Answer Date Re corded In the past 12 months, has l ack of transportation kept you from medical appointments or from getting medications? No 06/19/2023 Lack of Transportation (Non-Medical) Not on file 06/19/2023 Sex and Gender Information Value Date Recorded Sex Assigned at Male 06/19/2023 4:40 PM CDT Legal Sex Male 1:15 PM CDT Gender Identity Male 06/19/2023 4:40 PM CDT Sexual Orientation Straight 06/19/2023 4: 40 PM CDT documented as of this encounter Plan of Treatment Not on file documented as of this encounter Visit Diagnoses Diagnosis Atherosclerotic heart disease of [place] coronary artery without angina pectoris documented in this encounter Additional Health Concerns Infection Onset Date Last Indicated Resolved Time MRSA (C) 06/11/2023 06/11/2023 documented as of this encounter Care Teams Family Day Care Provider Relationship Specialty Start Date End Date Annalise Carter, [address] [facility] [address] [place] [address] PCP - General Family Medicine 06/06/23 Chuck Mie PA-C [address], [facility] [address] [place] [address] Cardiology 11/01/23 documented as of this encounter
--- OUTSIDE RECORDS SUMMARY | 2025-05-05 12:23 | XMS_ITS | Encounter Summary ---
Author Organization [employer] ([place], [place], [place], [place]) Address [address] [place] [address] Care Team Providers Care Senior Scientist Name Role Phone Annalise Carter DO Primary Care Provider [phone] Chuck Mei PA-C Unavailable [phone] Encounter Details Date Type Department Care Team (Late st Contact Info) Description 07/08/2020 Transcribed Document [facility] [place] [address] [place] [address] ProviderLars MD [address] [place] [address] Social History Tobacco Use Types [...] Cerner Conversion Note - Lars ProviderMD - 07/08/2020 11:52 AM CDT UM Authorization Entered On: 07/08/2020 11:52 EDT Performed On: 07/08/2020 11:52 EDT by ALEXANDER CALZADA RN Primary Insurance Authorization Authorization and Policy Numbers : Insurance 1 Health Plan: [employer] Policy Number: [id number] Authorization Number: Insurance Primary Name : [employer] Policy Number: [id number] Authorized Service Begin Date-Primary : 07/07/2020 EDT Historical Authorization Comments-Primary : No Authorization Comments Found ALEXANDER CALZADA, RN - 07/08/2020 11:52 EDT Electronically signed by [facility] Conversion Lighting Equipment Operator Cerner at 12/27/2022 12:07 PM CDT documented in this encounter Plan of Treatment Not on file documented as of this encounter Visit Diagnoses Not on filedocumented in this encounter Additional Health Concerns Infection Onset Date Last Indicated Resolved Time MRSA (C) 06/11/2023 06/11/2023 documented as of this encounter Care Teams Senior Scientist Relationship Specialty Start Date End Date Annalise Carter, [address] [facility] [address] [place] [address] PCP - General Family Medicine 06/06/23 Chuck Mei PA-C [address], [facility] [address] [place] [address] Cardiology 11/01/23 documented as of this encounter
--- OUTSIDE RECORDS SUMMARY | 2025-05-05 12:23 | XMS_ITS | Encounter Summary ---
Author Organization [employer] ([place], [place], [place], [place]) Address [address] [place] [address] Care Team Providers Care Soubrette Name Role Phone Annalise Carter DO Primary Care Provider [phone] Chuck Mei PA-C Unavailable [phone] Reason for Visit * Reason Comments Medication Refill Encounter Details Date Type Department Care Team (Late st Contact Info) Description 08/01/2022 Refill [facility] Cardiology [address] [id number] Oniel Barney MD [address] [facility] [address] [place], [place] [id number] Social History Tobacco Use Types Packs/Day Years [...] documented as of this encounter Care Teams Soubrette Relationship Specialty Start Date End Date Annalise Carter DO [address] [place] [address] PCP - General Family Medicine 06/06/23 Chuck Mei PA-C [address], [facility] [address] [place] [address] Cardiology 11/01/23 documented as of this encounter
--- OUTSIDE RECORDS SUMMARY | 2025-05-05 12:23 | XMS_ITS | Encounter Summary ---
Author Organization [employer] ([place], [place], [place], [place]) Address [address] [place] [address] Care Team Providers Care Silicator Name Role Phone Annalise Carter DO Primary Care Provider [phone] Chuck Mei PA-C Unavailable [phone] Encounter Details Date Type Department Care Team (Late st Contact Info) Description 05/26/2020 Transcribed Document [facility] Family Medicine [address] [place] [address] ProviderLars MD [address] [place] [address] Social History Tobacco Use Types [...] Cerner Conversion Note - Lars ProviderMD - 05/26/2020 10:24 AM CDT Patient: ROSARIO GREGG Age: 59 [...] diabetes mellitus, BPH, and hypertension presented to [facility] ED on 05/23/2024 worsening shortness of breath and cough for the last week. Tested for COVID-19 on this past Monday at [place], [place] with results back on Monday that [...] Complains of cough and shortness of breath 05/24/20: Patient admitted to ICU last night with rapid worsening of oxygen requirement, up to 13 L. Throughout the day today he has been maintained on high flow nasal cannula, 75% and alternating with BiPAP 50%. Patient says he feels relatively comfortable at rest. Is awake and conversant. afebrile. 05/25/20: Oxygen requirements at 70% FIO2 with HHF NC, he is complaining of headache today, otherwise no fevers, no diarrhea, no rashes. Able to converse without becoming short of breath. 05/26/20: Afebrile overnight. Blood pressure okay. On high flow nasal cannula but requirement down to 50%. Sitting but sleeping in bed. Has eaten breakfast. ROS: unobtainable Allergies: Morphine Medications: Medications by Classification Immunology dexamethasone - 6 mg, Oral, Tab, Daily, order duration: 9 Day(s), Routine Anticoagulant enoxaparin (Lovenox) - 40 mg, SubCutaneous, Inj, [id number], Routine Cardiovascular aspirin (Ecotrin) - 81 mg, Oral, EC Tab, Daily, Routine nitroglycerin (Nitrostat) - 0.4 mg, SubLINgual, Tab, Q5Min, PRN for Chest Pain, Routine metoprolol (Lopressor) - 50 mg, Oral, Tab, BID, Routine labetalol - 10 mg, IV Push, Inj, Q3H, PRN for Hypertension, Routine furosemide (Lasix) - 20 mg, IV Push, Inj, BID, Routine lisinopril - 5 mg, Oral, Tab, Daily, Routine atorvastatin - 40 mg, Oral, Tab, At Bedtime, Routine Respiratory albuterol-ipratropium (Combivent Respimat CFC free 100 mcg-2 - 1 Puff, Inhalation, Inh, RT_QID, Routine albuterol-ipratropium (DuoNeb 0.5 mg-2.5 mg/3 mL inhalation - 3 mL, Nebulized Inhalation, Inh, RT_Q3H, PRN for Shortness of Breath, Routine formoterol-mometasone (formoterol-mometasone 5 mcg-200 mcg/i - 2 Puff, Inhalation, Inh, BID, Routine guaiFENesin (Mucinex) - 600 mg, Oral, ER Tab, BID, Routine GI ondansetron (Zofran) - 4 mg, IV Push, Inj, Q4H, PRN for Nausea/Vomiting, Routine famotidine (Pepcid) - 20 mg, Oral, Tab, BID, Routine Endocrine insulin glargine (Lantus) - 15 Units, SubCutaneous, Inj, 1-Time insulin glargine (Lantus) - 30 Units, SubCutaneous, Inj, [id number] insulin lispro (insulin lispro sliding scale) - Scale D:, SubCutaneous, Inj, AC and at Bedtime, Routine HEENT ocular lubricant (Isopto Tears) - 1 Drop, Eyes Both, Drops, TID, PRN for Dry Eyes, Routine Pain Meds aspirin (Ecotrin) - 81 mg, Oral, EC Tab, Daily, Routine *Duplicate* acetaminophen (Tylenol) - 650 mg, Oral, Tab, Q4H, PRN for Pain (Mild 1-3), Routine Vitamins sodium chloride (Normal Saline Flush) - 10 mL, IV Push, Inj, See Comment, STAT Undefined Medications remdesivir - Inj, IV Piggyback, [id number] for 4 Day(s) ticagrelor - 90 mg, Oral, Tab, BID, Routine PE: Vitals Signs (last 24 hrs) Last Charted Minimum Maximum Temp 98.5 (MAY 26 04:00) 97.8 (MAY 14 20:00) 98.3 (MAY 14 12:00) Apical HR 74 (MAY 26 08:57) 74 (MAY 26 08:57) 78 (MAY 14 21:00) Mon HR 80 (MAY 26 08:51) 62 (MAY 26 06:00) 100 (MAY 14 21:14) Resp Rate L 11 (MAY 26 08:51) L 5 (MAY 26 00:19) H 37 (MAY 14 21:14) SBP 112 (MAY 26 06:00) 94 (MAY 14 11:00) 127 (MAY 26 01:00) DBP 61 (MAY 26 06:00) L 59 (MAY 14 11:00) H 93 (MAY 26 02:00) MAP 82 (MAY 26 06:00) 72 (MAY 14 11:00) 106 (MAY 26 02:00) SpO2 L 90 (MAY 26 08:51) L 84 (MAY 25 22:00) 100 (MAY 25 20:00) I examined the patient from outside the room with direct visualization and short conversation by phone due to the critical shortage of personal protective equipment in the setting of the COVID19 pandemic Exam: Constitutional: NAD, alert, WD/WN, appears older than stated age, obese. sitting up but asleep HEENT: NC/AT. External ears, eyes, nose, and lip are normal Respiratory: non-labored breathing, on HFNC. no cough appreciated Cardio: regular rate per telemetry GI: non-distended, obese : no awad MS: Moving all 4 extremities Derm: No rashes on exposed skin Neuro: AOx3 Psych: appropriate PIV Labs: Labs (Last four charted values) WBC H 11.7 (MAY 15) H 11.6 (MAY 14) H 10.6 (MAY 13) 9.5 (MAY 12) HB L 12.0 (MAY 15) L 11.8 (MAY 14) L 12.4 (MAY 13) 13.6 (MAY 12) HCT L 36.7 (MAY 15) L 36.1 (MAY 14) L 37.1 (MAY 13) 41.3 (SEP 12) Plt 246 (SEP 15) 226 (SEP 14) 213 (SEP 13) 185 (SEP 12) Na 137 (MAY 15) 142 (SEP 14) 142 (SEP 13) 142 (SEP 12) K 4.2 (MAY 15) 4.9 (SEP 14) 3.7 (SEP 13) 3.8 (MAY 12) Cl 109 (MAY 15) H 114 (MAY 14) H 113 (MAY 13) H 115 (MAY 12) CO2 23 (SEP 15) 22 (SEP 14) 24 (SEP 13) 21 (MAY 12) BUN H 28 (MAY 15) H 28 (SEP 14) 22 (SEP 13) 16 (MAY 12) Cr 0.90 (MAY 15) 1.00 (MAY 14) 1.00 (MAY 13) 1.00 (MAY 12) Glu R H 271 (MAY 15) H 176 (MAY 14) H 198 (MAY 13) H 140 (MAY 12) Ca L 7.8 (MAY 15) 8.4 (MAY 14) L 7.9 (MAY 13) L 7.3 (MAY 12) Lactic 1.0 (MAY 13) 1.5 (MAY 12) PT 10.8 (MAY 12) 10.9 (MAY 12) INR 1.0 (MAY 12) 1.0 (MAY 12) PTT 32.4 (MAY 12) AST 21 (SEP 14) 23 (SEP 13) 22 (MAY 12) ALT 25 (SEP 14) 27 (SEP 13) 27 (MAY 12) ALK P 67 (MAY 14) 67 (MAY 13) 63 (MAY 12) T Bili 0.3 (MAY 14) 0.4 (MAY 13) 0.5 (MAY 12) PTN 7.1 (MAY 14) 7.1 (MAY 13) 6.4 (MAY 12) ALB L 2.7 (MAY 14) L 2.7 (MAY 13) L 2.6 (MAY 12) Troponin <0.015 (MAY 13) <0.015 (MAY 12) Creatinine Clearance (Current Encounter/Past 24 Hours) Creatinine Level 0.90 mg/dL 05/26/2020 04:34 Bun/Creatinine 31.1 HI 05/26/2020 04:34 Estimated Creatinine Clearance 86.19 mL/Min 05/26/2020 04:34 Micro: 05/23 blood cultures pending, so far negative 05/23 COVID-19 PCR positive sputum cx contaminated Rad: Radiology Results (Last 48 hours) [id number] -- 05/23/2020 09:33 CR Chest 1 Vw Portable (05/25/2020 05:46) Result: PORTABLE CHESTHISTORY: Respiratory failure.COMPARISON: 05/24/2020.FINDINGS: A single portable radiograph of the chest was performed. Thepatient is status post sternotomy for CABG. There are cardiac electrodesoverlying the chest wall. There is cardiomegaly. There is decreased lungvolume with bilateral patchy lower lobe airspace opacities consistentwith pneumonia. There is no edema. There are no significant effusions.IMPRESSION:1. Cardiomegaly.2. Patchy bilateral airspace opacities most consistent with pneumonia.Images reviewed, interpreted, and dictated by Ryan Robles MD CR Chest 1 Vw Portable (05/26/2020 05:06) Result: PORTABLE CHEST 05/26/2020 6:00 AM HISTORY: Respiratory distress.COMPARISON: May 25, 2020.FINDINGS: The heart is stable in size. The lung rosado demonstrate nosignificant change in the severe perihilar and bibasilar opacities.There is no pneumothorax. Status post median sternotomy. IMPRESSION: There has been no significant interval change .Continued follow-up recommended.Images reviewed, interpreted, and dictated by Dr. Eulalio Pena.Transcribed by SERG Vivas have personally viewed, interpreted and dictated the examination. Ihave read and agree with the above final transcribed report. Personally reviewed above CXR from today: stable bilateral infiltrates IMPRESSION: - Severe COVID-19 pneumonia with acute hypoxic respiratory failure. Less likely coinfection with negative procalcitonin. inflammatory markers slightly better, off antibiotics. Slight improvement in O2 requirement today. inflammatory markers also trending down. - Acute hypoxic respiratory failure: rapidly worse on 05/23. now slightly better - Type 2 diabetes mellitus - Coronary artery disease/stent/CABG - Hypertension RECOMMENDATIONS/PLANS: - Monitor blood cultures, so far negative - legionella antigen pending - Follow CBC, CMP, LDH, Ferritin, D dimer, CRP - Dexamethasone 6 mg daily for 10 days until 06/02 - remdesivir daily for 5 days total until 05/28 - s/p 1 unit convalescent plasma on 05/23 - Continue O2 support - Continue Lovenox Complex MDM. Patient is critically ill. Will follow documented in this encounter Plan of Treatment Not on file documented as of this encounter Visit Diagnoses Not on filedocumented in this encounter Additional Health Concerns Infection Onset Date Last Indicated Resolved Time MRSA (C) 06/11/2023 06/11/2023 documented as of this encounter Care Teams Silicator Relationship Specialty Start Date End Date Annalise Carter DO [address] [facility] [address] [place] [address] PCP - General Family Medicine 06/06/23 Chuck Mei PA-C [address], [facility] [address] [place] [address] Cardiology 11/01/23 documented as of this encounter
--- OUTSIDE RECORDS SUMMARY | 2025-05-05 12:23 | XMS_ITS | Encounter Summary ---
Author Organization [employer] ([place], [place], [place], [place]) Address [address] [address] Care Team Providers Care Firesetter Name Role Phone Annalise Carter DO Primary Care Provider [phone] Chuck Mei PA-C Unavailable [phone] Encounter Details Date Type Department Care Team (Late st Contact Info) Description 05/24/2020 Transcribed Document [facility] Cardiology [address] [place] [id number] [place] [address] [place] [address] [address] [place] [id number] Social History Tobacco Use Types Packs/Day Years Used Date Smoking Tobacco: Never Assessed Sex and Gender Information Value Date Recorded Sex Assigned at Male 06/19/2023 4:40 PM CDT Legal Sex Male 1:15 PM CDT Gender Identity Male 06/19/2023 4:40 PM CDT Sexual Orientation Straight 06/19/2023 4: 40 PM CDT documented as of this encounter Miscellaneous Notes * Cerner Conversion Note - Abraham Patterson MD - 05/24/2020 8:45 AM EDT Patient: ROSARIO GREGG Age: 59 years Sex: Male : 1960 Associated Diagnoses: None Author: ABRAHAM PATTERSON MD-CAR Basic Information PCP: Julia Carter DO Checkroom Attendant: Oniel Barney MD Chief Complaint Shortness of breath History of Present Illness 59-year-old male with a past medical history of coronary artery disease, hypertension, hyperlipidemia, and diabetes. He was diagnosed with COVID 19 on Monday. He presented to the [facility] emergency room yesterday with complaints of progressively worsening shortness of breath. Repeat COVID testing has been done but is not resulted. Routine lab work revealed a BNP of 214. Chest x-ray showed diffuse infiltrates. The patient denies any recent weight gain or peripheral edema. Cardiology has been consulted for treatment of congestive heart failure. The patient is currently resting in bed in no acute distress. Review of Systems Constitutional: Negative except as documented in history of present illness. Eye: Negative except as documented in history of present illness. Ear/Nose/Mouth/Throat: Negative except as documented in history of present illness. Respiratory: Negative except as documented in history of present illness. Cardiovascular: Negative except as documented in history of present illness. Gastrointestinal: Negative except as documented in history of present illness. Genitourinary: Negative except as documented in history of present illness. Hematology/Lymphatics: Negative except as documented in history of present illness. Endocrine: Negative except as documented in history of present illness. Immunologic: Negative except as documented in history of present illness. Musculoskeletal: Negative except as documented in history of present illness. Integumentary: Negative except as documented in history of present illness. Neurologic: Negative except as documented in history of present illness. Psychiatric: Negative except as documented in history of present illness. Health Status No qualifying data available Home Medications (14) Active Aspirin Low Dose 81 mg, Oral, Daily atorvastatin 40 mg oral tablet 40 mg = 1 Tab, Oral, Daily Brilinta (ticagrelor) 90 mg oral tablet 90 mg = 1 Tab, Oral, BID Cymbalta 30 mg oral delayed release capsule 30 mg = 1 Cap, Oral, Daily famotidine 20 mg oral tablet 20 mg = 1 Tab, Oral, BID Fish Oil 1000 mg oral capsule 1,000 mg = 1 Cap, Oral, BID furosemide 40 mg oral tablet 40 mg = 1 Tab, Oral, Daily HumaLOG 25 Units, SubCutaneous, QID Lantus 70 Units, SubCutaneous, At Bedtime lisinopril 5 mg oral tablet 5 mg = 1 Tab, Oral, Daily Lopressor 50 mg oral tablet 50 mg = 1 Tab, Oral, BID Nitrostat 0.4 mg sublingual tablet 0.4 mg = 1 Tab, PRN, SubLINgual, Q5Min tamsulosin 0.4 mg oral capsule 0.4 mg = 1 Cap, Oral, Daily TriCor 145 mg oral tablet 145 mg = 1 Tab, Oral, Daily Current medications: Medications (21) Active Scheduled: (15) #NaCl 0.9% *FLUSH* inj 10 mL 10 mL, IV Push, See Comment albuterol-ipratropium CFC free 4 g inh 1 Puff, Inhalation, RT_QID aspirin EC 81 mg tab 81 mg 1 Tab, Oral, Daily cefTRIAXone 2 Gram, IV Piggyback, [id number] dexamethasone 4 mg tab 6 mg 1.5 Tab, Oral, Daily doxycycline hyclate 100 mg cap 100 mg 1 Cap, Oral, BID enoxaparin 40 mg/0.4 mL inj 40 mg [...] Scale D:, SubCutaneous, AC and at Bedtime mometasone/formoterol 200/5 mcg inh 2 Puff, Inhalation, BID potassium chloride CR 20 mEq tab 20 mEq 1 Tab, Oral, QID remdesivir , IV Piggyback, [id number] Continuous: (0) PRN: (6) acetaminophen 325 mg tab 650 mg 2 Tab, Oral, Q4H albuterol-ipratropium inh 3 mL 3 mL, Nebulized Inhalation, RT_Q3H labetalol 20 mg/4 mL inj *SYRINGE* 10 mg 2 mL, IV Push, Q3H nitroglycerin 0.4 mg tab # 25 btl 0.4 mg 1 Tab, SubLINgual, Q5Min ondansetron 4 mg/2 mL inj 4 mg 2 mL, IV Push, Q4H traMADol 50 mg tab 25 mg 0.5 Tab, Oral, Q6H Problem list: Active Problems (21) Arthritis CAD - Coronary artery disease Cataract Chronic anxiety Chronic depression Coronary artery disease Diabetes mellitus Diabetes mellitus type II Disorder of prostate Glaucoma Hard of hearing Heart valve History of obstructive sleep apnea HLD - Hyperlipidemia HTN (hypertension) Hyperlipidemia Hypertension Pneumonia Renal calculus Sleep apnea Stented coronary artery Histories No education data available. Social & Psychosocial Habits Alcohol 11/17/2016 Alcohol Use History, Social Habits Yes Date/Time of Last Drink a little wine or beer 3 times a yr Alcohol Use Frequency Rarely Substance Abuse 11/17/2016 Recreational Drug Use History No Recreational Drug Use Last 12 Months No Tobacco 11/17/2016 Smoking Status Former smoker Month Tobacco Last Used Quit 6 years ago Past Medical History: Active CAD - Coronary artery disease ([id number]) HTN (hypertension) ([id number]) HLD - Hyperlipidemia ([id number]) Diabetes mellitus (102768215) Family History: Dementia Father Mother Procedure history: cabg. Physical Examination VS/Measurements Vitals Signs (last 24 hrs) Last Charted Minimum Maximum Temp 98.5 (MAY 24 04:15) 98.5 (MAY 24 04:15) 99.5 ([facility] 08:17) Apical HR H 104 ([facility] 12:11) H 104 ([facility] 12:11) H 104 ([facility] 12:11) Mon HR 79 ([facility] 06:30) 74 ([facility] 03:30) 116 ([facility] 14:00) Periph HR 109 ([facility] 08:17) 109 ([facility] 08:17) 109 ([facility] 08:17) Resp Rate H 38 (MAY 24 06:30) L 7 (MAY 23 13:00) H 45 ([facility] 22:45) SBP 119 (MAY 24 06:30) 105 ([facility] 13 03:00) H 193 ([facility] 13:00) DBP 69 ([facility] 06:30) L 58 ([facility] 12 18:00) H 117 ([facility] 13:00) MAP 89 ([facility] 06:30) 80 ([facility] 12 18:00) 137 ([facility] 13:00) SpO2 L 91 (MAY 24 06:30) L 83 ([facility] 22:15) 96 ([facility] 13 01:45) General: Alert and oriented. Eye: Pupils are equal, round and reactive to light. HENT: Normocephalic. Neck: Supple, No carotid bruit, No jugular venous distention. Respiratory: Respirations are non-labored, Breath sounds are equal. Breath sounds: Bilateral, Base, Rales present. Cardiovascular: Normal rate, Regular rhythm, No murmur, No gallop, Good pulses equal in all extremities. Gastrointestinal: Soft, Non-tender, Non-distended, Normal bowel sounds. Musculoskeletal: Normal range of motion, Normal strength. Integumentary: Warm, Dry, Curran. Neurologic: Alert, Oriented. Psychiatric: Cooperative. Review / Management MAY 24 04:19 142 H 113 22 / H 198 3.7 24 1.00 \ MAY 24 04:19 \ L 12.4 / H 10.6 213 / L 37.1 \ Cardiac Markers (Current Encounter/Past 24 Hours) CK 140 Units/Liter 05/24/2020 05:06 ProBNP 214 pg/mL MO 05/24/2020 05:06 Blood Gases (Current Encounter/Past 24 Hours) pH Art 7.46 MO 05/23/2020 21:28 pCO2 Art 29.4 [facility] 05/23/2020 21:28 pO2 Art 66.8 [facility] 05/23/2020 21:29 HCO3 Art 20.8 05/23/2020 15:35 BE Art -2.1 [facility] 05/23/2020 21:29 sO2 Art 94.3 [facility] 05/23/2020 21:29 tHb Art 13.1 05/23/2020 15:35 FHHb 5.6 05/23/2020 15:35 ctO2 17.1 05/23/2020 15:35 Delivery Device Type Art Cannula 05/23/2020 15:35 Temperature, F Art 98.6 05/23/2020 15:35 Art Blood Gas (ABG) Site Right Radial 05/23/2020 15:35 Acceptable Lincoln's Test Art Acceptable 05/23/2020 15:35 Ventilator Mode Art N/A 05/23/2020 15:35 Oxygen Flow Rate Art 4.0 05/23/2020 15:35 ABG Num of Draw Attempts 1 05/23/2020 15:35 Radiology Results (Last 48 hours) [id number] -- 05/23/2020 09:33 CR Chest 1 Vw [...] agree with the above final transcribed report. Results review: Labs (Last four charted values) WBC H 10.6 (MAY 13) 9.5 (MAY 12) HB L 12.4 (MAY 13) 13.6 (MAY 12) HCT L 37.1 (MAY 13) 41.3 (SEP 12) Plt 213 (MAY 13) 185 (MAY 12) Na 142 (MAY 13) 142 (MAY 12) K 3.7 (MAY 13) 3.8 (SEP 12) L 2.9 (MAY 12) Cl H 113 (MAY 13) H 115 (MAY 12) CO2 24 (MAY 13) 21 (MAY 12) BUN 22 (MAY 13) 16 (MAY 12) Cr 1.00 (MAY 13) 1.00 (MAY 12) Glu R H 198 (MAY 13) H 140 (MAY 12) Ca L 7.9 (MAY 13) L 7.3 (MAY 12) Lactic 1.0 (MAY 13) 1.5 (MAY 12) PT 10.8 (MAY 12) 10.9 (MAY 12) INR 1.0 (MAY 12) 1.0 (SEP 12) PTT 32.4 (MAY 12) AST 23 (MAY 13) 22 (SEP 12) ALT 27 (MAY 13) 27 (SEP 12) ALK P 67 (MAY 13) 63 (MAY 12) T Bili 0.4 (MAY 13) 0.5 (SEP 12) PTN 7.1 (MAY 13) 6.4 (SEP 12) ALB L 2.7 (SEP 13) L 2.6 (SEP 12) Troponin <0.015 (MAY 13) <0.015 (MAY 12) . 05/23/2020 Impression: Normal sized left ventricle. Moderate left ventricular hypertrophy. Visually estimated ejection fraction 55% +/- 5%. Normal systolic function. Normal left ventricular diastolic function. Mild left atrial enlargement. Dilated right ventricle. No masses or thrombi. Measurements Summary: LVEDd: 5.12 cm LVESd: 3.27 cm IVSEd: 1.43 cm AO Root:3.67 cm LVPWd: 1.43 cm Impression and Plan IMPRESSION: * Acute hypoxic respiratory failure COVID 19 + BNP 214, Euvolemic * CAD prior CABG * HTN Controlled * HLD PLAN; Currently euvolemic. 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
--- OUTSIDE RECORDS SUMMARY | 2025-05-05 12:23 | XMS_ITS | Encounter Summary ---
Author Organization [employer] ([place], [place], [place], [place]) Address [address] [place] [address] Care Team Providers Care Vasc Tech Name Role Phone Annalise Carter DO Primary Care Provider [phone] Chuck Mei PA-C Unavailable [phone] Encounter Details Date Type Department Care Team (Late st Contact Info) Description 05/23/2020 Transcribed Document [facility] [place] Medicine [facility] [place] [address] ProviderLars MD [address] [place] [address] Social History Tobacco Use Types [...] Cerner Conversion Note - Lars ProviderMD - 05/23/2020 6:07 PM CDT ED Event Note Entered On: 05/23/2020 18:08 EDT Performed On: 05/23/2020 18:07 EDT by LES SULLIVAN RN ED Event Note ED Event Date/Time : 05/23/2020 18:07 EDT ED Event Location : Assigned room ED Event Details : Change in condition ED Description of Event : patient to the ICU with RN for transport, contact/droplet precautions maintained LES SULLIVAN RN - 05/23/2020 18:07 EDT Electronically signed by Aikn [facility] Conversion Inter Com Installer Cerner at 12/27/2022 11:44 AM CDT documented in this encounter Plan of Treatment Not on file documented as of this encounter Visit Diagnoses Not on filedocumented in this encounter Additional Health Concerns Infection Onset Date Last Indicated Resolved Time MRSA (C) 06/11/2023 06/11/2023 documented as of this encounter Care Teams Vasc Tech Relationship Specialty Start Date End Date Annalise Carter, [address] [place] [address] PCP - General Family Medicine 06/06/23 Chuck Mei PA-C [address], [facility] [address] [place] [address] Cardiology 11/01/23 documented as of this encounter
--- OUTSIDE RECORDS SUMMARY | 2025-05-05 12:23 | XMS_ITS | Encounter Summary ---
Author Organization [employer] ([place], [place], [place], [place]) Address [address] [place] [address] Care Team Providers Care Night Assistant Name Role Phone Annalise Muro DO Primary Care Provider [phone] Chuck Mei PA-C Unavailable [phone] Encounter Details Date Type Department Care Team (Late st Contact Info) Description 05/29/2020 Transcribed Document [facility] [place] [address] [place] [address] ProviderLars MD [address] [place] [address] Social History Tobacco Use Types [...] Note - Lars Jeffries MD - 05/29/2020 1:46 PM CDT [facility] [place] [address] ROSARIO GREGG :1960 Visit Time:05/23/2020 Your Visit Summary Your Care Team Admitting Physician - GIANLUCA CALVO MD Attending Physician - GIANLUCA CALVO MD Primary Care Physician - ANNALISE MURO DO-[facility] Referring Physician - RADHA FIELD MD Your [...] When 06/01/2020 11:00 AM EDT Where: [address] [place] [address] Party Over Here (1) Medications What How Much When Instructions Next Dose dexamethasone (dexamethasone 4 mg oral tablet) 1.5 Tablet(s) Oral Every Day Duration: 5 Day(s) Pickup at [facility] Durable Medical Equipment (Insulin Syringes for Humalog Administration) 1 Each Miscellaneous See Comment Use to inject humalog three times a day before meals. #90 and No refills. PROPAGATION MANAGER AT [facility] Pickup at [facility] famotidine (famotidine 20 mg oral tablet) 1 Tablet(s) Oral Two Times A Day Pickup at [facility] insulin lispro (HumaLOG 100 units/ mL injectable solution) 10 Unit(s) SubCutaneous Three Times a Day With Meals [facility]GER AT [facility] Pickup at [facility] insulin glargine (Lantus) 75 Unit(s) SubCutaneous Every [...] Oral Two Times A Day Pickup at [facility] Pharmacy Information [facility]: [address] [place], [place] [id number] [phone] Take your medications faithfully. Do NOT skip [...] if you have questions about pets: https://www.cdc.gov/coronavirus/2019- ncov/faq.html#JDUXH08gvevsax Monitor your symptoms. ??? Common symptoms of [...] and need to call 911, notify the commercial front load operator that you have or think you [...] clean your hands with an alcohol-based hand covering machine tender that contains at least 60% alcohol. Clean your hands often. ??? Wash your handsoften with soap and water for at least 20 seconds. This is especially important after blowing your nose, coughing, or sneezing; going to the bathroom; and before eating or preparing food. ??? Use hand covering machine tender if soap and water are not available. Use an alcohol-based hand covering machine tender with at least 60% alcohol, covering all [...] and water or put them in the pouncer machine. Clean all high-touch surfaces everyday. ??? Clean [...] body fluids on them. ??? Use household contact acid plant operator and disinfectants. Clean the area or item [...] Reviewed: 12/24/2019 Elsevier Patient Education ?? 2020 [employer] COVID-19 Frequently Asked Questions COVID-19 (coronavirus disease) is an infection that is caused by a large family of viruses. Some viruses cause illness in people and others cause illness in animals like camels, cats, and bats. In some cases, the viruses that cause illness in animals can spread to humans. Where did the coronavirus come from? In August 2019, [place] told the World Health Organization (WHO) of several cases of lung disease (human respiratory illness). These cases were linked to an open seafood and livestock market in the city of [facility]. The link to the seafood and [...] and virus naming World Health Organization (WHO): www.who.int/emergencies/diseases/rqhgo-fnjnytdvkpd-0659/technical-guidance/nam sba-awj-gwkkuntwcek-disease-(covid-2019)-dgl-yvh-snupa-ulnx-bhzpvs-pv Who is at risk for complications from [...] relieve his or her symptoms by using shfr-yoq-buhczan medicines that treat sneezing, coughing, and runny [...] water are not available, use alcohol-based hand covering machine tender. ??? Avoid touching your face, mouth, nose, [...] (CDC): www.cdc.gov/coronavirus/2019-ncov/travelers/index.html ??? World Health Organization (WHO): www.who.int/emergencies/diseases/kwbxu-krahwtixzit-7889/travel-advice Know the risks and take action to [...] water are not available, use alcohol-based hand covering machine tender. ??? Cough or sneeze into a tissue, [...] in hot, soapy water or use a pouncer machine. Air-dry your dishes. ??? Wash laundry in [...] Organization (WHO) ??? Information and news updates: www.who.int/emergencies/diseases/afwvc-gcllwjlakbk-9098 ??? Coronavirus health topic: www.who.int/health-topics/coronavirus ??? Questions and answers on COVID-19: www.who.int/news-room/q-a-detail/b-h-kqhsgwjzkkuxb ??? Global tracker: [employer] [place] [employer] (AAP) ??? Information for families: www.healthychildren.org/Panamanian/health-issues/conditions/chest-lungs/Pages/201 6-Fkcur-Cxvavbgxzfz.aspx The coronavirus situation is changing rapidly. Check [...] 12/24/2019 Document Revised: 12/24/2019 Document Reviewed: 12/24/2019 [employer] Patient Education ?? 2020 [employer]. COVID-19: How to Protect Yourself and Others Know how it spreads ??? There is currently no vaccine to prevent coronavirus disease 2019 (COVID-19). ??? The best way to prevent illness is to avoid being exposed to this virus. ??? The virus is thought to spread mainly from aguelg-ba-knbrvn. ? Between people who are in close [...] are not readily available, use a hand covering machine tender that contains at least 60% alcohol. Cover [...] are at higher risk of getting very sick.https://www.cdc.gov/coronavirus/2019-ncov/nelq-bcgrn-ppcydvjrqjb/people-a e-amaetw-wieo.html Cover your mouth and nose with a cloth face cover when around others ??? You could spread COVID-19 to others even if you do not feel sick. ??? Everyone should wear a cloth face cover when they have to go out in public, for example to the grocery store or to pickler helper other necessities. ? Cloth face coverings should [...] available, clean your hands with a hand covering machine tender that contains at least 60% alcohol. Clean and disinfect ??? Clean AND disinfect frequently touched surfaces daily. This includes tables, doorknobs, light switches, countertops, handles, desks, phones, keyboards, toilets, faucets, and sinks. https://www.cdc.gov/coronavirus/2019-ncov/ixsjgfz-demavyk-jmzr/disinfecting-yo ur-home.html ??? If surfaces are dirty, clean them: Use detergent or soap and water prior to disinfection. cdc.gov/coronavirus 12/21/2019 This information is not intended to replace advice given to you by your health care provider. Make sure you discuss any questions you have with your health care provider. Document Released: 12/24/2019 Document Revised: 12/27/2019 Document Reviewed: 12/24/2019 [employer] Patient Education ?? 2020 [employer]. COVID-19 COVID-19, also known as coronavirus [...] symptoms. This may include rest, fluids, and uwbr-wiu-uxmtqtf medicines. Follow these instructions at home: Lifestyle [...] safe for you. General instructions ??? Take qsli-nbc-vcynozb and prescription medicines only as told by [...] are not available, use an alcohol-based hand covering machine tender. ? Avoid touching your mouth, face, eyes, [...] water are not available, use alcohol-based hand covering machine tender. ??? Stay away from other members of [...] 10/03/2019 Document Revised: 12/24/2019 Document Reviewed: 10/03/2019 [employer] Patient Education ?? 2020 [employer]. metoprolol (oral/injection) (me TOE pro lol) [...] may report side effects to FDA at 8-152-WTI-6953. What other drugs will affect metoprolol? Tell [...] may affect metoprolol. This includes prescription and fawb-kdt-dgvrqwg medicines, vitamins, and herbal products. Not all [...] to ensure that the information provided by [employer]. ('[employer]') is accurate, up-to-date, and complete, but no guarantee is made to that effect. Drug information contained herein may be time sensitive. [employer] information has been compiled for use by healthcare practitioners and consumers in the [place] and therefore [employer] does not warrant that uses outside of the [place] are appropriate, unless specifically indicated otherwise. [employer]'s drug information does not endorse drugs, diagnose patients or recommend therapy. [employer] drug information is an informational resource designed [...] effective or appropriate for any given patient. [facility] does not assume any responsibility for any aspect of healthcare administered with the aid of information [facility] provides. The information contained herein is not intended to cover all possible uses, directions, precautions, warnings, drug interactions, allergic reactions, or adverse effects. If you have questions about the drugs you are taking, check with your doctor, nurse or pharmacist. Copyright 7950-8463 [employer]. Version: 17.03. Revision Date: 02/06/2019. dexamethasone (oral) [...] not expected to produce life threatening symptoms. alf use of high doses can lead to [...] may report side effects to FDA at 2-789-FKS-9826. What other drugs will affect dexamethasone? Sometimes [...] may affect dexamethasone. This includes prescription and ccfb-spj-nlhmtbg medicines, vitamins, and herbal products. Not all [...] to ensure that the information provided by [employer]. ('[employer]') is accurate, up-to-date, and complete, but no guarantee is made to that effect. Drug information contained herein may be time sensitive. [employer] information has been compiled for use by healthcare practitioners and consumers in the [place] and therefore [employer] does not warrant that uses outside of the [place] are appropriate, unless specifically indicated otherwise. [employer] drug information does not endorse drugs, diagnose patients or recommend therapy. [employer] drug information is an informational resource designed [...] effective or appropriate for any given patient. [employer] does not assume any responsibility for any aspect of healthcare administered with the aid of information [employer] provides. The information contained herein is not intended to cover all possible uses, directions, precautions, warnings, drug interactions, allergic reactions, or adverse effects. If you have questions about the drugs you are taking, check with your doctor, nurse or pharmacist. Copyright 7302-9901 [employer]. Version: 7.01. Revision Date: 01/03/2018. famotidine (oral/injection) (fam [place] ti devon) Heartburn Relief, Leader Acid Door Worker, Pepcid, Pepcid AC, Pepcid AC Maximum Strength [...] may report side effects to FDA at 3-888-JWZ-1801. What other drugs will affect famotidine? Famotidine oral can make it harder for your body to absorb other medicines you take by mouth. Tell your doctor if you are taking: ?? cefditoren; ?? dasatinib; ?? delavirdine; ?? fosamprenavir; or ?? tizanidine (if you are taking famotidine liquid). This list is not complete. Other drugs may affect famotidine oral or injection, including prescription and xwpt-lch-zuwsmdz medicines, vitamins, and herbal products. Not all [...] to ensure that the information provided by [employer]. ('[employer]') is accurate, up-to-date, and complete, but no guarantee is made to that effect. Drug information contained herein may be time sensitive. [employer] information has been compiled for use by healthcare practitioners and consumers in the [place] and therefore [employer] does not warrant that uses outside of the [place] are appropriate, unless specifically indicated otherwise. [employer] drug information does not endorse drugs, diagnose patients or recommend therapy. [employer] drug information is an informational resource designed [...] effective or appropriate for any given patient. [employer] does not assume any responsibility for any aspect of healthcare administered with the aid of information [employer] provides. The information contained herein is not intended to cover all possible uses, directions, precautions, warnings, drug interactions, allergic reactions, or adverse effects. If you have questions about the drugs you are taking, check with your doctor, nurse or pharmacist. Copyright [id number] [employer]. Version: 17.. Revision Date: 12/04/2019. ticagrelor (bebeto [...] What happens if I miss a dose? documented in this encounter Plan of Treatment Not on file documented as of this encounter Visit Diagnoses Not on filedocumented in this encounter Additional Health Concerns Infection Onset Date Last Indicated Resolved Time MRSA (C) 06/11/2023 06/11/2023 documented as of this encounter Care Teams Night Assistant Relationship Specialty Start Date End Date Annalise Muro, DO [address] [facility] [address] [place] [address] PCP - General Family Medicine 06/06/23 Chuck Mei PA-C [address], [facility] [address] [place] [address] Cardiology 11/01/23 documented as of this encounter
--- OUTSIDE RECORDS SUMMARY | 2025-05-05 12:23 | XMS_ITS | Encounter Summary ---
Author Organization [employer] ([place], [place], [place], [place]) Address [address] [place] [address] Care Team Providers Care Registered Pharmacy Technician Name Role Phone Annalise Carter DO Primary Care Provider [phone] Chuck Mei PA-C Unavailable [phone] Encounter Details Date Type Department Care Team (Late st Contact Info) Description 05/26/2020 Transcribed Document [facility] [place] [address] ProviderLars MD [address] [place], [place] [address] Social History Tobacco Use Types Packs/Day Years [...] Conversion Note - Lars ProviderMD - 05/26/2020 10:54 PM CDT Meds to Bed Enrollment Entered On: 05/27/2020 7:17 EDT Performed On: 05/26/2020 22:54 EDT by Alvarez Sanchez, [facility] [employer]TER[employer]PHARMACY Meds to Bed Enrollment Patient Enrollment Decision: : Yes/enroll in meds to bed program Alvarez Sanchez, [facility] [facility] REPORTER-PHARMACY - 05/27/2020 7:17 EDT documented in this encounter Plan of Treatment Not on file documented as of this encounter Visit Diagnoses Not on filedocumented in this encounter Additional Health Concerns Infection Onset Date Last Indicated Resolved Time MRSA (C) 06/11/2023 06/11/2023 documented as of this encounter Care Teams Registered Pharmacy Technician Relationship Specialty Start Date End Date Annalise Carter, [address] [facility] [address] [place] [address] PCP - General Family Medicine 06/06/23 Chuck Mei PA-C [address], [address] [place] [address] Cardiology 11/01/23 documented as of this encounter
--- OUTSIDE RECORDS SUMMARY | 2025-05-05 12:23 | XMS_ITS | Encounter Summary ---
Author Organization [employer] ([place], [place], [place], [place]) Address [address] [place] [address] Care Team Providers Care Plate Mill Hand Name Role Phone Annalise Carter DO Primary Care Provider [phone] Chuck Mei PA-C Unavailable [phone] Encounter Details Date Type Department Care Team (Late st Contact Info) Description 05/24/2020 Transcribed Document [facility] [place] Family Medicine [address] [place] [address] ProviderLars MD [address] [place] [address] Social History Tobacco Use Types [...] Cerner Conversion Note - Lars ProviderMD - 05/24/2020 1:58 PM CDT Patient: ROSARIO GREGG Age: 59 years Sex: Male : 1960 Associated Diagnoses: None Author: LAINA BRADLEY MD [facility] Pulmonary CCM Progress Note Requesting: Dr. Billings Reason: COVID-19 Basic Information CC: I am breathing better than I was yesterday HPI: 59-year-old male who has past medical history of CAD with stents and CABG, DM, HTN, HLP, Depression, Anxiety, stated sleep apnea, and BPH who tested positive for COVID 19 this past Monday in [place], [place]. He presented to ER with shortness of breath and cough. He was noted to be hypoxic with sats of 92% on room air, now on 2L and some times down to upper 80's on oxygen saturation. He is being admitted for COVID-19 pneumonia and we are consulted for acute hypoxic respiratory failure. Repeat COVID - testing is pending. PMH: CAD Arthritis Cataracts Depression Anxiety DM [...] and silica per pt No TB exposure 05/24: Patient is seen in ICU awake and alert and oriented. His oxygen requirements have increased over the past 24 hours and he is now on Optiflow 75% FIO2, 50L with oxygen saturation in the low 90s percent.. He is not overly symptomatic, he has mild shortness of breath just a little and he has tachypnea. He has a cough which has lepe sputum production. He has not had any fevers, he is hemodynamically stable not on IV vasopressors. He is sitting up eating breakfast. Labs this am show phos marginally low at 2.4, K has normalized, CRP down to 12, LDH trending down, ferritin trending up and D dimer trending down, WBC trending up, hgb is stable. Urine output 1150 ml past 24 hours. Review of Systems Constitutional: Weakness, Fatigue, No fever, No chills. Eye: No visual disturbances. Ear/Nose/Mouth/Throat: loss of taste and smell, No sore throat. Respiratory: Shortness of breath, Cough, Sputum production, No hemoptysis, No wheezing. Cardiovascular: No chest pain. Gastrointestinal: Diarrhea, No nausea, No vomiting. Immunologic: Not immunocompromised. Musculoskeletal: No back pain. Integumentary: No rash. Neurologic: Headache. Psychiatric: No anxiety. Health Status Allergies: Allergic Reactions (Selected) Severity Not Documented Morphine- No reactions were documented., No qualifying data available Current medications: (Selected) Inpatient Medications Ordered Combivent Respimat CFC free 100 mcg-20 mcg/inh inhalation aerosol: 1 Puff, Inhalation, RT_QID DuoNeb 0.5 mg-2.5 mg/3 mL inhalation solution: 3 mL, Nebulized Inhalation, RT_Q3H, PRN: Shortness of Breath Ecotrin: 81 mg, Oral, Daily Lantus: 15 Units, SubCutaneous, BID Lasix: 20 [...] Nausea/Vomiting atorvastatin: 40 mg, Oral, At Bedtime cefTRIAXone: 2 Gram, 100 mL/Hr, IV Piggyback, [id number] dexamethasone: 6 mg, Oral, Daily doxycycline: 100 mg, Oral, BID formoterol-mometasone 5 mcg-200 mcg/inh inhalation aerosol: 2 Puff, Inhalation, BID insulin lispro sliding scale: Scale D:, SubCutaneous, AC and at Bedtime labetalol: 10 mg, IV Push, Q3H, PRN: Hypertension lisinopril: 5 mg, Oral, Daily potassium chloride extended release: 20 mEq, Oral, QID remdesivir: 250 mL/Hr, IV Piggyback, [id number] ticagrelor: 90 mg, Oral, BID traMADol: 25 [...] Oral, Daily, 30 Cap, 0 Refill(s), Medications (25) Active Scheduled: (19) #NaCl 0.9% *FLUSH* inj 10 mL 10 mL, IV Push, See Comment albuterol-ipratropium CFC free 4 g inh 1 Puff, Inhalation, RT_QID aspirin EC 81 mg tab 81 mg 1 Tab, Oral, Daily atorvastatin 40 mg tab 40 mg 1 Tab, Oral, At Bedtime cefTRIAXone 2 Gram, IV Piggyback, F12WVbe dexamethasone 4 mg tab 6 mg 1.5 [...] Tab, Oral, QID remdesivir , IV Piggyback, [id number] ticagrelor 90 mg tab 90 mg 1 Tab, Oral, BID Continuous: (0) PRN: (6) acetaminophen 325 mg [...] - Coronary artery disease / SNOMED CT [id number] / Confirmed HTN (hypertension) / SNOMED CT [id number] / Confirmed HLD - Hyperlipidemia / SNOMED CT [id number] / Confirmed Diabetes mellitus / SNOMED CT [id number] / Confirmed History of obstructive sleep apnea / IMO [id number] / Confirmed, Active Problems (21) Arthritis CAD - Coronary artery disease Cataract Chronic anxiety Chronic depression Coronary artery disease Diabetes mellitus Diabetes mellitus type II Disorder of prostate Glaucoma Hard of hearing Heart valve History of obstructive sleep apnea HLD - Hyperlipidemia HTN (hypertension) Hyperlipidemia Hypertension Pneumonia Renal calculus Sleep apnea Stented coronary artery Physical Examination VS/Measurements Vitals Signs (last 24 hrs) Last Charted Minimum Maximum Temp 98.4 (MAY 24 12:00) 98.4 (MAY 24 12:00) 98.8 (MAY 23 21:15) Apical HR 90 (MAY 24 09:57) 90 (MAY 24 09:57) 90 (MAY 24 09:57) Mon HR 82 (MAY 24 13:00) 74 (MAY 24 03:30) 116 (MAY 23 14:00) Resp Rate L 8 (MAY 24 13:00) L 4 (MAY 24 11:31) H 45 (MAY 23 22:45) SBP 125 (SEP 13 13:00) 105 (MAY 13 03:00) H 147 (MAY 12 17:00) DBP 72 (MAY 13 13:00) L 56 (MAY 13 09:00) 80 (MAY 13 01:00) MAP 93 (MAY 24 13:00) 78 (MAY 13 11:00) 100 (MAY 13 01:00) SpO2 96 (MAY 13 13:00) L 83 (MAY 12 22:15) 99 (MAY 13 11:31) General: Alert and oriented, Mild distress. Eye: Pupils are equal, round and reactive to light. HENT: Normocephalic. Neck: Supple. Respiratory: Respirations are non-labored, Breath sounds are equal, Symmetrical chest wall expansion, mild tachypnea, speaks in full sentences. Breath sounds: Bilateral, Base, Crackles present. Cardiovascular: Normal rate, Regular rhythm, No edema. Gastrointestinal: Soft, Non-tender, Non-distended, Normal bowel sounds, obese but soft. Genitourinary: No costovertebral angle tenderness. Musculoskeletal: Normal range of motion. Integumentary: Warm, Dry. Neurologic: Alert, Oriented. Psychiatric: Cooperative, Appropriate mood & affect. Review / Management Results review: Labs (Last four charted values) WBC H 10.6 (MAY 13) 9.5 (SEP 12) HB L 12.4 (MAY 13) 13.6 (SEP 12) HCT L 37.1 (SEP 13) 41.3 (SEP 12) Plt 213 (SEP 13) 185 (SEP 12) Na 142 (SEP 13) 142 (SEP 12) K 3.7 (SEP 13) 3.8 (SEP 12) L 2.9 (SEP 12) Cl H 113 (MAY 13) H 115 (SEP 12) CO2 24 (SEP 13) 21 (SEP 12) BUN 22 (MAY 13) 16 (SEP 12) Cr 1.00 (MAY 13) 1.00 (SEP 12) Glu R H 198 (MAY 13) H 140 (MAY 12) Ca L 7.9 (MAY 13) L 7.3 (SEP 12) Lactic 1.0 (SEP 13) 1.5 (SEP 12) PT 10.8 (SEP 12) 10.9 (SEP 12) INR 1.0 (MAY 12) 1.0 (MAY 12) PTT 32.4 (MAY 12) AST 23 (MAY 13) 22 (SEP 12) ALT 27 (MAY 24) 27 (MAY 23) ALK P 67 (MAY 13) 63 (MAY 23) T Bili 0.4 (MAY 24) 0.5 (MAY 23) PTN 7.1 (MAY 24) 6.4 (MAY 23) ALB L 2.7 (MAY 24) L 2.6 (MAY 23) Troponin <0.015 (MAY 24) <0.015 (MAY 23) . No qualifying data available Blood Gases (Current Encounter/Past 24 Hours) pH Art 7.42 05/24/2020 12:22 pCO2 Art 33.3 LOW 05/24/2020 12:22 pO2 Art 81.3 05/24/2020 12:22 HCO3 Art 21.6 05/24/2020 12:22 BE Art -2.1 LOW 05/24/2020 12:22 sO2 Art 96.6 05/24/2020 12:22 tHb Art 12.9 05/24/2020 12:22 FHHb 3.4 NA 05/24/2020 12:22 ctO2 17.4 NA 05/24/2020 12:22 FIO2 Art 50 NA 05/24/2020 12:22 Delivery Device Type Art NIV NA 05/24/2020 12:22 Temperature, F Art 98.6 NA 05/24/2020 12:22 Art Blood Gas (ABG) Site Right Radial NA 05/24/2020 12:22 Acceptable Lincoln's Test Art Acceptable NA 05/24/2020 12:22 Ventilator Mode Art N/A NA 05/24/2020 12:22 Oxygen Flow Rate Art 4.0 NA 05/23/2020 15:35 Set Rate Art 14.0 NA 05/24/2020 12:22 Respiratory Rate Art 30.0 NA 05/24/2020 12:22 Comment Art nippv 15/7 NA 05/24/2020 12:22 ABG Num of Draw Attempts 1 NA 05/24/2020 12:22 Radiology Results (Last 48 hours) [id number] -- 05/23/2020 09:33 CR Chest 1 Vw [...] interpreted, and dictated by Eulalio Pena MD Impression: Normal sized left ventricle. Moderate left ventricular hypertrophy. Visually estimated ejection fraction 55% +/- 5%. Normal systolic function. Normal left ventricular diastolic function. Mild left atrial enlargement. Dilated right ventricle. No masses or thrombi. RVSP 17 Impression and Plan Acute Hypoxic Respiratory Failure: COVID-19 Pneumonia Diffuse airspace and interstitial infiltrates Small bilateral pleural effusions Sleep Apnea not treated Previous smoker Cardiac: Negative troponin Normal BNP H/O CAD with CABG and stents ID: COVID -19 pneumonia Renal: Hypokalemia; resolved Endo: DM PLAN: Oxygen supplementation to keep sat 92-96% Alternate Optiflow with BiPAP Combivent one puff QID IS ECHO noted COVID -19 order set Mucinex 600 mg po BID Cardiology following Lasix 20 mg IV BID Anbx: ID following Doxy/Rocephin BC pending Dexamethasone per ID 6 mg IV daily Remdesivir started on May 23 S/P Convalescence plasma per ID on 05/23 GI prophylaxis: Pepcid DVT prophylaxis: Lovenox Glycemic control: SSI / Lantus FULL CODE Prognosis: Guarded ICU Overall pulmonary critical care attending note. Patient presented with intense fatigue, subjective fever, dry cough and worsening shortness of breath. When he was in ER, he was on O2 at 2 L/min but he progressively got worse and required nonrebreather in few hours.. Patient status post COVID-19 convulsant plasma and Remdesivir started yesterday monitor LDH, CRP, and ferritin. Chest x-ray showed bilateral alveolar infiltrates. Patient was assigned to the floor but I changed it to the ICU status. Agree with diuresis Use incentive spirometry and flutter valve while on OptiFlow Alternate OptiFlow with BiPAP; patient already started having some nasal bleeding due to OptiFlow use PT OT up to chair hopefully Prognosis: guarded Full code I have personally evaluated the patient; history and review of systems, physical examination, laboratory studies and radiology data. I have actively directed the medical care, formulated diagnosis and plan and discussed it with our team. Critically ill, significantly hypoxic, patient suffers from COVID-19 pneumonia and ARDS and he is at risk for intubation mechanical ventilation,. A complex case, requires frequent assessments and high level of decision making. Critical care time spent on this patient is 33 minute Electronically signed by Akin, [facility] Conversion Engine Specialist Cerner at 12/27/2022 12:00 PM CDT documented in this encounter Plan of Treatment Not on file documented as of this encounter Visit Diagnoses Not on filedocumented in this encounter Additional Health Concerns Infection Onset Date Last Indicated Resolved Time MRSA (C) 06/11/2023 06/11/2023 documented as of this encounter Care Teams Plate Mill Hand Relationship Specialty Start Date End Date Annalise Carter, [address] [facility] [address] [place] [address] PCP - General Family Medicine 06/06/23 Chuck Mei PA-C [address] , [facility] [address] [place] [address] Cardiology 11/01/23 documented as of this encounter
--- OUTSIDE RECORDS SUMMARY | 2025-05-05 12:23 | XMS_ITS | Encounter Summary ---
Author Organization [employer] ([place], [place], [place], [place]) Address [address] [place] [address] Care Team Providers Care English Instructor Name Role Phone Annalise Carter DO Primary Care Provider [phone] Chuck Mei PA-C Unavailable [phone] Encounter Details Date Type Department Care Team (Late st Contact Info) Description 05/29/2020 Transcribed Document [facility] [place] Family Medicine [facility] [place] [address] ProviderLars MD [address] [place] [address] Social History Tobacco Use Types [...] Cerner Conversion Note - Lars ProviderMD - 05/29/2020 2:32 PM CDT Final Discharge Planning Entered On: 05/29/2020 14:33 EDT Performed On: 05/29/2020 14:32 EDT by EUGENIA GODFREY, RN-Auto Body Worker Final Discharge Planning Discharge Arrangements : Patient Post-Acute Information Patient Name: ROSARIO GREGG Gender: Male : [birth year] Age: 59 Years No Post-Acute Placement(s) Listed No Post-Acute Service(s) Listed No [place] Referral(s) Listed Patient Offered Choice/Affiliations Explained : Yes Designation of Choice Signed : No Important Medicare Message Reviewed With : Patient Important Medicare Message Reviewed D/T : 05/29/2020 11:00 EDT Transportation Needs : Family/Friend Discharge Transportation Arrangement Cmt : brother Follow Up Appointment Scheduled : Yes Is Patient High/Moderate Readmission Risk? : Yes Moderate Readmission Risk - Home, no home health : Make post-discharge physician appointment within 5-7 days of discharge., Revisit patient/caregiver again after home health, if successful designate choice of home health and notifiy liason Patient/Family Notified of Plan : Yes Patient/Family Notified : patient Is Patient Ready for Discharge? : Yes Physician Notified Patient is Ready for Discharge? : Yes Discharge To Care Management : Home/Residential/Assisted or Self Care - EUGENIA GODFREY, RN-Auto Body Worker - 05/29/2020 14:32 EDT Final Narrative Note Final Narrative Note : Pt to discharge to home. No discharge needs noted. EUGENIA GODFREY, RN-Auto Body Worker - 05/29/2020 14:32 EDT documented in this encounter Plan of Treatment Not on file documented as of this encounter Visit Diagnoses Not on filedocumented in this encounter Additional Health Concerns Infection Onset Date Last Indicated Resolved Time MRSA (C) 06/11/2023 06/11/2023 documented as of this encounter Care Teams English Instructor Relationship Specialty Start Date End Date Annalise Carter, [address] [place] [address] PCP - General Family Medicine 06/06/23 Chuck Mei PA-C [address], [facility] [address] [place] [address] Cardiology 11/01/23 documented as of this encounter
--- OUTSIDE RECORDS SUMMARY | 2025-05-05 12:23 | XMS_ITS | Encounter Summary ---
Author Organization [employer] ([place], [place], [place], [place]) Address [address] [place] [address] Care Team Providers Care Fiberglass Finisher Name Role Phone Annalise Carter DO Primary Care Provider [phone] Chuck Mei PA-C Unavailable [phone] Encounter Details Date Type Department Care Team (Late st Contact Info) Description 05/23/2020 Transcribed Document [facility] [place] Family Medicine [address] [place] [address] ProviderLars MD [address] [place], [place] [address] Social History Tobacco Use Types Packs/Day Years [...] Conversion Note - Lars ProviderMD - 05/23/2020 8:16 AM CDT ED Assessment Entered On: 05/23/2020 9:07 EDT Performed On: 05/23/2020 9:04 EDT by MARTHA SULLIVAN RN-Resource ED Quick Look Assessment Level of Consciousness : Alert, Awake Affect/Behavior : Appropriate, Cooperative Orientation : Oriented x 4 Skin Temperature : Warm MARTHA SULLIVAN RN-Resource - 05/23/2020 9:04 EDT ED General-Functional Assess Information Obtained From : Patient Preferred Communication Mode : Verbal Communication Barrier : None Primary Language : Chinese Any Spiritual/Cultural Needs or Requests : No Currently in Unsafe Situation : No MARTHA SULLIVAN RN-Resource - 05/23/2020 9:04 EDT Social Habits Smoking Status : Former smoker, quit more than 30 days ago Smokeless Tobacco Status : Never Desires Tobacco Cessation Calc : 0 MARTHA SULLIVAN RN-Resource - 05/23/2020 9:04 EDT Social History (As Of: 05/23/2020 09:07:41 EDT) Tobacco: Smoking Status Former smoker. Last Used: Quit 6 years ago. (Last Updated: 11/17/2016 12:34:45 EST by JAKE AHMADI RN) Alcohol: Alcohol Use History Yes. Date/Time of Last Drink: a little wine or beer 3 times a yr. Alcohol Use Frequency Rarely. (Last Updated: 11/17/2016 22:00:13 EST by CONSTANTIN BLACKBURN RN) Substance Abuse: Drug Use Hx: No. Use in Last 12 Months: No. (Last Updated: 11/17/2016 22:00:23 EST by CONSTANTIN BLACKBURN RN) EENT Assessment EENT Assessment WDL : WDL MARTHA SULLIVAN RN-Resource - 05/23/2020 9:04 EDT Cardiovascular ASMT, ED Cardiovascular Assessment WDL : WDL Cardiovascular Symptoms : None Heart Rhythm : Regular Nail Bed Color : [place] Chest Pain : No MARTHA SULLIVAN RN-Resource - 05/23/2020 9:04 EDT Pulses Grid Posterior Tibial Pulse, Left : 2+ normal Posterior Tibial Pulse, Right : 2+ normal Radial Pulse, Left : 2+ normal Radial Pulse, Right : 2+ normal MARTHA SULLIVAN RN-Resource - 05/23/2020 9:04 EDT Respiratory Respiratory Assessment WDL : WDL with exceptions Cough : Dry, Occasional MARTHA SULLIVAN RN-Resource - 05/23/2020 9:04 EDT Breath Sounds Assessment Grid VENANCIO : Clear LLL : Clear RUL : Clear RML : Clear RLL : Diminished SULLIVANMARTHA CASTILLO RN-Resource - 05/23/2020 9:04 EDT Respiratory Pattern Description : Regular Sputum Amount : None MARTHA SULLIVAN RN-Resource - 05/23/2020 9:04 EDT Oxygen Therapy Oxygen Therapy Mode : Nasal cannula Oxygen Flow Rate : 2 Liter/Min MARTHA SULLIVAN RN-Resource - 05/23/2020 9:04 EDT Gastrointestinal ED Gastrointestinal Assessment WDL : MARTHA GOMEZ RN-Resource - 05/23/2020 9:04 EDT Genitourinary Assessment, ED Genitourinary Assessment WDL : MARTHA GOMEZ RN-Resource - 05/23/2020 9:04 EDT Musculoskeletal Musculoskeletal Assessment WDL : MARTHA GOMEZ RN-Resource - 05/23/2020 9:04 EDT Integumentary Assessment Skin Temperature : Warm Integumentary Assessment WDL : MARTHA GOMEZ RN-Resource - 05/23/2020 9:04 EDT Pain Assessment Pain Assessment : Initial assessment Pain Scale Used : 0-10 Scale MARTHA SULLIVAN RN-Resource - 05/23/2020 9:04 EDT Pain Scale Intensity : 0 MARTHA SULLIVAN RN-Resource - 05/23/2020 9:04 EDT Image 4 - Images currently included in the form version of this document have not been included in the text rendition version of the form. documented in this encounter Plan of Treatment Not on file documented as of this encounter Visit Diagnoses Not on filedocumented in this encounter Additional Health Concerns Infection Onset Date Last Indicated Resolved Time MRSA (C) 06/11/2023 06/11/2023 documented as of this encounter Care Teams Fiberglass Finisher Relationship Specialty Start Date End Date Annalise Carter, DO [address] [place] [address] PCP - General Family Medicine 06/06/23 Chuck Mei PA-C [address], [facility] [address] [place] [address] Cardiology 11/01/23 documented as of this encounter
--- OUTSIDE RECORDS SUMMARY | 2025-05-05 12:23 | XMS_ITS | Encounter Summary ---
Author Organization [employer] ([place], [place], [place], [place]) Address [address] [place] [address] Care Team Providers Care Security Rover Name Role Phone Annalise Carter DO Primary Care Provider [phone] Chuck Mei PA-C Unavailable [phone] Encounter Details Date Type Department Care Team (Late st Contact Info) Description 05/29/2020 Transcribed Document [facility] [place] Family Medicine [facility] [place] [address] ProviderLars MD [address] [place] [address] Social History Tobacco Use Types [...] Cerner Conversion Note - Historical ProviderMD - 05/29/2020 12:14 PM CDT Stroke/Warfarin Instructions Entered On: 05/29/2020 12:17 EDT Performed On: 05/29/2020 12:14 EDT by Camille Fraser RN Stroke/Warfarin Instructions Stroke/TIA Discharge Ins : N/A Warfarin Discharge Ins : N/A Camille Fraser RN - 05/29/2020 12:14 EDT documented in this encounter Plan of Treatment Not on file documented as of this encounter Visit Diagnoses Not on filedocumented in this encounter Additional Health Concerns Infection Onset Date Last Indicated Resolved Time MRSA (C) 06/11/2023 06/11/2023 documented as of this encounter Care Teams Security Rover Relationship Specialty Start Date End Date Annalise Carter, [address] [facility] [address] [place] [address] PCP - General Family Medicine 06/06/23 Chuck Mei PA-C [address], [facility] [place] [address] Cardiology 11/01/23 documented as of this encounter
--- OUTSIDE RECORDS SUMMARY | 2025-05-05 12:23 | XMS_ITS | Encounter Summary ---
Author Organization [employer] ([place], [place], [place], [place]) Address [address] [place] [address] Care Team Providers Care Beading Installer Name Role Phone Annalise Carter DO Primary Care Provider [phone] Chuck Mei PA-C Unavailable [phone] Encounter Details Date Type Department Care Team (Late st Contact Info) Description 07/08/2020 Transcribed Document [facility] [address] [place] [address] ProviderLars MD [address] [place] [address] Social History Tobacco Use Types [...] Conversion Note - Lars ProviderMD - 07/08/2020 9:09 AM CDT Patient: ROSARIO GREGG Age: 59 years Sex: Male : 1960 Associated Diagnoses: None Author: KIKI CORTÉS MD-INF ID Consultation/Initial Ref MD: MD Manuelito Evaluating MD: Kiki Cortés MD Admit Date 07/07/2020 18:23 Date of consultation: 07/08/20 Reason for consultation: hemoptysis CC: hemoptysis HPI: 59 yo male with a hx of coronary artery disease s/p stent and CABG, type 2 diabetes mellitus, BPH, and hypertension presented to [facility] ED on 05/23/2024 worsening shortness of breath and cough for the last week. Tested for COVID-19 locally prior to admission. He was mildly hypoxic and had low-grade fevers. He quickly decompensated upon admission and was transferred to the ICU but avoided need for intubation. He was on high flow nasal cannula oxygen for a few days. Treated with remdesivir, convalescent plasma and steroids. He improved rather quickly and was discharged home on 05/2907/08/20: Readmitted yesterday complaining of hemoptysis, which started that same day. He says he had a temperature of 100.7 at home and complained of chills. About a week prior he had been treated for COPD/bronchitis with azithromycin by PCP. Complains of chronic dry cough which is not improved since he was discharged home from the hospital last time. No sick contacts. No recent travel. He lives at home with his mother. CT chest with bilateral groundglass opacities. Repeat Covid PCR is negative. afebrile. 93% on room air. Started on Zosyn and doxycycline by primary team. Being treated with prednisone and Lasix for possible bronchitis. WBC and procal normal. ROS: Constitutional: + fevers, chills at home Eye: No recent visual problems, eye discharge, eye pain HEENT: No ear pain, nasal congestion, sore throat Respiratory: + shortness of breath, cough, dyspnea, and sputum production Cardiovascular: No Chest pain, palpitations, syncope Gastrointestinal: No nausea, vomiting, diarrhea, constipation Genitourinary: No hematuria, dysuria, incontinence, Manish/Lymph: Negative for bruising tendency, swollen lymph glands, nosebleeds Endocrine: Negative for, excessive urination, heat or cold intolerance Musculoskeletal: No back pain, neck pain, joint pain, muscle pain, decreased range of motion Integumentary: No rash, pruritus, lesions Neurologic: No focal weakness, numbness, frequent headaches Psychiatric: No anxiety, depression, hallucinations AllergiesNo qualifying data available Medications by Classification Antimicrobials piperacillin-tazobactam + Sodium Chloride 0.9% intravenous s - 3.375 Gram, IV Piggyback, Inj, Q6HInt, infuse over 3 Hour(s), Routine doxycycline + Sodium Chloride 0.9% intravenous solution 100 - 100 mg, IV Piggyback, Inj, Q12H, infuse over 2 Hour(s), Routine Immunology predniSONE - 40 mg, Oral, Tab, Daily, order duration: 5 Day(s), NOW Anticoagulant tranexamic acid 500 mg + syringe 1 Each (Tranexamic Acid for - 500 mg 5 mL, Nebulized Inhalation, Inj, Q8H, Administer over 15 Minute(s), order duration: 3 Time(s), Routine *Duplicate* Cardiovascular cloNIDine - 0.1 mg, Oral, Tab, Q4H, PRN for Hypertension, Routine furosemide (Lasix) - 40 mg, IV Push, Inj, Q12H, order duration: 2 Time(s) Respiratory albuterol-ipratropium (DuoNeb 0.5 mg-2.5 mg/3 mL inhalation - 3 mL, Nebulized Inhalation, Inh, Q6H, PRN for Shortness of Breath, Routine dextromethorphan-guaifenesin (dextromethorphan-guaiFENesin 3 - 1 Tab, Oral, CR Tab, BID promethazine (Phenergan) - 6.25 mg, IntraVENous, Inj, Q6H, PRN for Nausea, Routine GI ondansetron (Zofran) - 4 mg, IV Push, Inj, Q4H, PRN for Nausea, Routine famotidine (Pepcid) - 20 mg, Oral, Tab, Daily, Routine Endocrine insulin lispro (insulin lispro 76 kg - 100 kg) - 76 kg - 100 kg scale, SubCutaneous, Inj, AC and at Bedtime, Routine Pain Meds acetaminophen (Tylenol) - 650 mg, Oral, Tab, Q4H, PRN for Other (See Comment), Routine Sedatives LORazepam (Ativan) - 0.5 mg, IV Push, Inj, Q4H, PRN for Agitation, Routine Undefined Medications hydrALAZINE - 10 mg, IV Push, Inj, Q6H, PRN for Hypertension, Routine tranexamic acid 500 mg + syringe 1 Each (Tranexamic Acid for - 500 mg 5 mL, Nebulized Inhalation, Inj, Q8H, Administer over 15 Minute(s), order duration: 3 Time(s), Routine Past Medical History: Arthritis At risk for sleep apnea CAD - Coronary artery disease Cataract Chronic anxiety Chronic depression Coronary artery disease Diabetes mellitus Diabetes mellitus type II Disorder of prostate Glaucoma Hard of hearing Heart valve History of obstructive sleep apnea HLD - Hyperlipidemia HTN (hypertension) Hyperlipidemia Hypertension Pneumonia Renal calculus Sleep apnea Stented coronary artery Past Surgical History:Procedures No Procedures on Record Family History: Non-contributory Social History:Social & Psychosocial Habits Alcohol 11/17/2016 Alcohol Use History, Social Habits Yes Date/Time of Last Drink a little wine or beer 3 times a yr Alcohol Use Frequency Rarely Substance Abuse 11/17/2016 Recreational Drug Use History No Recreational Drug Use Last 12 Months No Tobacco 11/17/2016 Smoking Status Former smoker Month Tobacco Last Used Quit 6 years ago Physical Examination:Vitals Signs (last 24 hrs) Last Charted Minimum Maximum Temp 97.7 (JUL 08 06:13) 97.7 (JUL 08 06:13) 98.0 (JUL 07 14:19) Mon HR 98 (JUL 08 06:13) 84 (JUL 07 21:22) 101 (JUL 08 04:41) Periph HR 88 (JUL 07 19:47) 88 (JUL 07 19:47) 98 (JUL 07 14:19) Resp Rate 18 (JUL 08 06:13) 16 (JUL 07 17:21) H 25 (JUL 07 21:22) SBP 108 (JUL 08 06:13) 108 (JUL 08 06:13) H 146 (JUL 07 22:00) DBP 74 (JUL 08 06:13) L 59 (JUL 08 03:30) 79 (JUL 07 22:00) MAP 85 (JUL 08 06:13) 85 (JUL 08 06:13) 105 (JUL 07 22:00) SpO2 94 (JUL 08 08:56) L 90 (JUL 08 01:30) 97 (JUL 07 19:47) General: Awake, comfortable in bed at rest. Eye: EOMI, normal conjunctiva HENT: moist oral mucosa, no oral lesions, fair dentition Neck: Supple, non-tender Lungs: Faint wheezing bilaterally. Dry cough. No rales Heart: Normal rate, regular rhythm, no murmur appreciated Abdomen: Soft, non-tender, non-distended, normal bowel sounds Musculoskeletal: No peripheral edema Skin: Skin is warm, dry, no rashes or lesions Neurologic: Alert, and oriented X3, no gross focal motor deficits Psychiatric: Cooperative, appropriate mood and affect Labs:Labs (Last four charted values) WBC 7.4 (JUL [...] Troponin <0.015 (JUL 08) <0.015 (JUL 07) Creatinine Clearance (Current Encounter/Past 24 Hours) Creatinine Level 1.00 mg/dL 07/08/2020 04:42 Bun/Creatinine 10.0 07/08/2020 04:42 Estimated Creatinine Clearance 75.05 mL/Min 07/07/2020 15:28 Microbiology: blood cultures pending COVID PCR neg Radiology: Radiology Results (Last 48 hours) [id number] -- 07/07/2020 18:23 CTA Chest PE Protocol [...] pulmonarynodules. Groundglass opacity favoring mild pulmonary edema. Personally reviewed above CT images: bilateral ground glass opacity IMPRESSION: - Hemoptysis: new. on Brillenta - Cough, acute bronchitis - Bilateral pulmonary edema: seen on CT - Recent COVID-19: Completed treatment last admission and has since been cleared from isolation since discharge. Repeat Covid PCR negative this admission - Type 2 diabetes mellitus - Coronary artery disease/stent/CABG - Hypertension Agree with pulmonology's assessment. Imaging consistent with edema rather than pneumonia. Not septic here but does report low-grade fever at home prior to admission. Likely acute episode of mild bronchitis. Most likely viral but could be atypical bacterial. COVID-19 negative. Will send respiratory panel PCR. RECOMMENDATIONS/PLANS: - Follow-up pending blood cultures - Respiratory viral panel - Follow CBC, BMP - Stop Zosyn and doxycycline - Start PO Levaquin 500 mg daily, pending respiratory PCR results Steroids, diuresis and other supportive care per primary team. I will follow documented in this encounter Plan of Treatment Not on file documented as of this encounter Visit Diagnoses Not on filedocumented in this encounter Additional Health Concerns Infection Onset Date Last Indicated Resolved Time MRSA (C) 06/11/2023 06/11/2023 documented as of this encounter Care Teams Beading Installer Relationship Specialty Start Date End Date Annalise Carter, [address] [place] [address] PCP - General Family Medicine 06/06/23 Chuck Mei PA-C [address] , [facility] [address] [place] [address] Cardiology 11/01/23 documented as of this encounter
--- OUTSIDE RECORDS SUMMARY | 2025-05-05 12:23 | XMS_ITS | Encounter Summary ---
Author Organization [employer] ([place], [place], [place], [place]) Address [address] [place] [address] Care Team Providers Care Paste Up Copy Camera Operator Name Role Phone Annalise Carter DO Primary Care Provider [phone] Chuck Mei PA-C Unavailable [phone] Encounter Details Date Type Department Care Team (Late st Contact Info) Description 07/08/2020 Transcribed Document [facility] [place] Medicine [address] [place] [address] ProviderLars MD [address] [place] [address] Social History Tobacco Use Types [...] Conversion Note - Lars ProviderMD - 07/08/2020 5:00 PM CDT Chart Check - Review Order Profile Entered On: 07/08/2020 15:40 EDT Performed On: 07/08/2020 17:00 EDT by WALI Jarrett, RN Chart Check Powerplans Initiated/Discontinued as Appropriate : Yes All Active Orders Reviewed : Yes WALI Jarrett, RN - 07/08/2020 15:40 EDT Electronically signed by [facility] Conversion Complex Case Manager Mari at 12/27/2022 11:57 AM CDT documented in this encounter Plan of Treatment Not on file documented as of this encounter Visit Diagnoses Not on filedocumented in this encounter Additional Health Concerns Infection Onset Date Last Indicated Resolved Time MRSA (C) 06/11/2023 06/11/2023 documented as of this encounter Care Teams Paste Up Copy Camera Operator Relationship Specialty Start Date End Date Annalise Carter, [address] [facility] [address] [place] [address] PCP - General Family Medicine 06/06/23 Chuck Mei PA-C [address], [facility] [address] [place] [address] Cardiology 11/01/23 documented as of this encounter
--- OUTSIDE RECORDS SUMMARY | 2025-05-05 12:23 | XMS_ITS | Clinical Summary ---
Author Organization [facility] Address [address] [place] [address] Care Team Providers Care Community Relations Assistant Name Role Phone Annalise Carter DO Primary Care Provider [phone] Allergies Active Allergy Reactions Criticality Noted Date Comments Morphine Anaphylaxis High 05/17/2020 Medications aspirin 81 MG EC tablet Take 1 tablet by mouth Daily. Active atorvastatin (LIPITOR) 40 MG tablet Take 1 tablet by mouth Daily. 4 Active empagliflozin (JARDIANCE) 25 MG tablet tablet Take 1 tablet by mouth Daily. Active famotidine (PEPCID) 20 MG tablet Take 1 tablet by mouth Daily. 4 Active hydrOXYzine (ATARAX) 50 MG tablet TAKE 1 TABLET BY MOUTH EVERY EVENING NEEDED FOR INSOMNIA 4 Active insulin glargine (LANTUS, SEMGLEE) 100 UNIT/ML injection Inject 40 Units under the skin into the appropriate area as directed. Active BD Insulin Syringe U/F 31G X 5/16 1 ML misc See Admin Instructions. with insulin 4 Active lisinopril (PRINIVIL,ZESTR IL) 5 MG tablet Take 1 tablet by mouth Daily. 4 Active metFORMIN (GLUCOPHAGE) 1000 MG tablet Take 1 tablet by mouth Every 12 (Twelve) Hours. 4 Active metoprolol tartrate (LOPRESSOR) 50 MG tablet Take 1 tablet by mouth Every 12 (Twelve) Hours. 4 Active montelukast (SINGULAIR) 10 MG tablet Take 1 tablet by mouth Every Evening. 4 Active tamsulosin (FLOMAX) 0.4 MG capsule 24 hr capsule Take 1 capsule by mouth Daily. 4 Active Brilinta 60 MG tablet tablet Take 1 tablet by mouth 2 (Two) Times a Day. Active VITAMIN E 1000 UNIT capsule Take 1 capsule by mouth Daily. Active Dulaglutide (Trulicity) 1.5 MG/0.5ML solution pen-injectorInd ications:Uncont rolled diabetes mellitus with hyperglycemia, with long-term current use of insulin Inject 0.5 mg under the skin into the appropriate area as directed 1 (One) Time Per Week. 2 mL 5 4 Active gabapentin (NEURONTIN) 300 MG capsuleIndicati ons:Uncontrolle d diabetes mellitus with hyperglycemia, with long-term current use of insulin TAKE 1 CAPSULE BY MOUTH THREE TIMES A DAY 90 capsule 5 Active Active Problems Problem Noted Date Diagnosed Date Uncontrolled diabetes mellit us with hyperglycemia, with long-term current use of insulin 07/03/2024 Overview (07/03/2024): Diagnosed with type 2 in about 2002/ started with metformin and BBI/ --- Currently on jardiance/ bid insulin/ metformin/ and weekly trulicity- just started back on that. Bg checks are done bid Hypoglycemia- none in the last 3 months. Complications: no retinopathy No known nephropathy Feet- amputation right great toe in early June 2023 Nutrition: he drinks ensure every am Physical activity- reasonable Assessment & Plan (07/03/2024 1:42 PM EDT): Very high A1c/ very high risk for new complications. Has severe neuropathy and has had amputation of right great toe. Plan : he needs more gabapentin We need better diabetes control- we will increase trulicity and increase gabapentin He needs to see a lead c developer and gets special shoes His feet wont' get better unless his sugar gets better. Encounters Date Type Department Care Team Description 03/06/2025 Refill [facility] [address] [address] Rudy Ann MD Uncontrolled diabetes mellitus with hyperglycemia, with long-term current use of insulin from Last 3 Months Social History Tobacco Use Types Packs/Day Years Used Date Smoking Tobacco: Former Cigarettes Passive Smoke Exposure: Past Smokeless Tobacco: Never Tobacco Cessation:Counseling Given: Not Answered Alcohol Use Standard Drinks/Week Comments Not Currently 0 (1 standard drink = 0.6 oz pur e alcohol) Sex and Gender Information Value Date Recorded Sex Assigned at Not on file Legal Sex Male 12:21 PM EDT Gender Identity Not on file Sexual Orientation Not on file Last Filed Vital Signs Vital Sign Reading Time Taken Comments Blood Pressure 114/68 07/03/2024 1:03 PM EDT Pulse 77 07/03/2024 1:03 PM EDT Temperature - - Respiratory Rate - - Oxygen Saturation 98% 07/03/2024 1:03 PM EDT Inhaled Oxygen Concentration - - Weight 101 kg (222 lb) 07/03/2024 1:03 PM EDT Height 175.3 cm (5' 9 ) 07/03/2024 1:03 PM EDT Body Mass Index 32.78 07/03/2024 1:03 PM EDT Plan of Treatment Health Maintenance Due Date Last Done Comments DIABETIC EYE EXAM 1970 URINE MICROALBUMIN-CREATININ E RATIO (uACR) 1970 Pneumococcal Vaccine 50+ (1 of 2 - PCV) 1977 09/12/2019 COLOGUARD 11/21/2003 COLON CANCER SCREENING 5 YEA R SIGMOIDOSCOPY 11/21/2003 COLONOSCOPY 11/21/2003 COLORECTAL CANCER SCREENING 11/21/2003 CT COLONOGRAPHY 11/21/2003 FECAL OCCULT BLOOD TEST 11/21/2003 FIT Testing (1 year) 11/21/2003 ZOSTER VACCINE (2 of 2) 12/23/2019 10/28/2019 AAA SCREEN ONCE 11/21/2023 COVID-19 Vaccine (3 - 2023-2 5 season) 2024 12/30/2020, 11/17/2020 ANNUAL WELLNESS VISIT 07/03/2024 HEPATITIS C SCREENING 07/03/2024 HEMOGLOBIN A1C 01/01/2025 07/03/2024, 06/09/2023 INFLUENZA VACCINE 06/11/2025 06/01/2023, , 06/04/2022, Additional history exists DIABETIC FOOT EXAM 07/03/2025 07/03/2024, 07/03/2024 TDAP/TD VACCINES (2 - Td or Tdap) 05/31/2033 023 Procedures Procedure Name Priority Date/Time Associated Diagnosis Comments POCT GLYCOSYLATED HEMOGLOBIN (HGB A1C) Routine 07/03/2024 1:16 PM EDT Uncontrolled diabetes mellitus with hyperglycemia, with long-term current use of insulin from Last 3 Months or Most Recently Relevant to Health Maintenance Results * (ABNORMAL) POC Glycosylated Hemoglobin (Hb A1C) (07/03/2024 1:16 PM EDT) Hemoglobin A1C 11.5(A) 4.5 - 5.7 % [facility] Lot Number [id number] [facility] Expiration Date 02/28/26 [facility] Blood 07/03/2024 1:16 PM EDT Rudy Ann MD POINT OF CARE TEST ORD ERABLES Final Result [facility]
[address] [place] [address], from Last 3 Months or Most Recently Relevant to Health Maintenance Insurance [facility] MEDICARE ADVANTAGE PPO Care Teams Community Relations Assistant Relationship Specialty Start Date End Date Annalise Carter DO [facility] [place] [address] PCP - General Family Medicine 04/04/24
--- OUTSIDE RECORDS SUMMARY | 2025-05-05 12:23 | XMS_ITS | Encounter Summary ---
Author Organization [employer] ([place], [place], [place]) Address [address] [place] [address] Care Team Providers Care Pharmacy Scheduler Name Role Phone Annalise Carter DO Primary Care Provider [phone] Chuck Mei PA-C Unavailable [phone] Encounter Details Date Type Department Care Team (Late st Contact Info) Description 05/26/2020 Transcribed Document [facility] [place] [facility] [place] [address] ProviderLars MD [address] [place] [address] Social History Tobacco Use Types [...] Conversion Note - Lars ProviderMD - 05/26/2020 3:31 PM CDT Patient: ROSARIO GREGG Age: 59 Years Sex: Male : 1960 Subjective Comfortable. Less dyspneic. No pain. Feels better. Vital Signs T: 36.7 ??C TMIN: 36.7 ??C TMAX: 36.9 ??C HR: 70(Monitored) RR: 47 BP: 130/77 SpO2: 93% Oxygen Settings (Last) Oxygen Therapy Mode: High flow nasal cannula (05/26/20 22:10:00) Oxygen Flow Rate: 6 Liter/Min (05/26/20 22:10:00) Intake & Output Totals Last 24 Hours (7a-7a) Input Total: 2669 mL Output Total: 5200 mL Balance: -2531 mL Physical Exam Not examined due to COVID 19 PPE protection policy Awake and alert. Comfortable. A,Ox3 Assessment/Plan Acute hypoxic respiratory failure secondary to COVID pneumonia and pulmonary edema Placed on Oxygen Combivent inhaler IV Antibiotics Steroids remdesivir Convalescent plasma Clinically improving Out of ICU today COVID Pneumonia: Completed abx Acute Pulmonary edema Improved Increase activity with PT today. VTE Prophylaxis - Medical Enoxaparin 30 mg, SubCutaneous, Inj, [id number], Start 05/27/20 9:00:00 EDT (GIANLUCA CALVO) Ticagrelor 90 mg, Oral, Tab, BID, Routine, Start 05/24/20 9:00:00 EDT (LEONIE MCGEE) Sequential Compression Device Start: 05/23/20 9:55:00 EDT, Bilateral, While patient is in bed, Continuous Order (MICKI LAZAR) Medications atorvastatin, 40 mg= 1 Tab, Oral, At Bedtime calcium gluconate calcium gluconate + Sodium Chloride 0.9% intravenous solution 100 mL calcium gluconate + Sodium Chloride 0.9% intravenous solution 100 mL Combivent Respimat CFC free 100 mcg-20 mcg/inh inhalation aerosol, 1 Puff, Inhalation, RT_QID dexamethasone, 6 mg= 1.5 Tab, Oral, Daily DuoNeb 0.5 mg-2.5 mg/3 mL inhalation solution, 3 mL, Nebulized Inhalation , RT_Q3H, PRN Ecotrin, 81 mg= 1 Tab, Oral, Daily formoterol-mometasone 5 mcg-200 mcg/inh inhalation aerosol, 2 Puff, Inhalation, BID insulin lispro sliding scale, Scale D:, SubCutaneous, AC and at Bedtime Isopto Tears, 1 Drop, Eyes Both, TID, PRN labetalol, 10 mg= 2 mL, IV Push, Q3H, PRN Lantus, 30 Units= 0.3 mL, SubCutaneous, [id number] Lasix, 20 mg= 2 mL, IV Push, Daily lisinopril, 5 mg= 1 Tab, Oral, Daily Lopressor, 50 mg= 1 Tab, Oral, BID Lovenox, 30 mg= 0.3 mL, SubCutaneous, H38OGat magnesium sulfate, 2 Gram= 50 mL, IV Piggyback, Daily, PRN magnesium sulfate, 2 Gram= 50 mL, IV Piggyback, Q2H, PRN Mucinex, 600 mg= 1 Tab, Oral, BID Nitrostat, 0.4 mg= 1 Tab, SubLINgual, Q5Min, PRN Pepcid, 20 mg= 1 Tab, Oral, BID potassium chloride 10 mEq/50 mL intravenous solution, 10 mEq= 50 mL, IV Piggyback, Q1H, PRN potassium chloride 20 mEq oral tablet, extended release, 20 mEq= 1 Tab, Oral, Q2H, PRN potassium chloride 20 mEq oral tablet, extended release, 60 mEq= 3 Tab, Oral, Q2H, PRN remdesivir sodium phosphate sodium phosphate ticagrelor, 90 mg= 1 Tab, Oral, BID Tylenol, 650 mg= 2 Tab, Oral, Q4H, PRN Zofran, 4 mg= 2 mL, IV Push, Q4H, PRN Lab Results Test Name Test Result Date/Time pH Art 7.44 05/26/2020 06:22 EDT pCO2 Art 33.9 mmHg (Low) 05/26/2020 06:22 EDT pO2 Art 71.5 mmHg (Low) 05/26/2020 06:22 EDT HCO3 Art 23.1 mmol/L 05/26/2020 06:22 EDT BE Art -0.5 mmol/L 05/26/2020 06:22 EDT sO2 Art 95.5 % 05/26/2020 06:22 EDT tHb Art 12.5 Gram/dL 05/26/2020 06:22 EDT FHHb 4.4 % 05/26/2020 06:22 EDT ctO2 16.6 mmol/L 05/26/2020 06:22 EDT FIO2 Art 60 05/26/2020 06:22 EDT Delivery Device Type Art OptiFlow 05/26/2020 06:22 EDT Temperature, F Art 98.6 Deg F 05/26/2020 06:22 EDT Art Blood Gas (ABG) Site Right Radial 05/26/2020 06:22 EDT Acceptable Lincoln's Test Art Acceptable 05/26/2020 06:22 EDT Ventilator Mode Art N/A 05/26/2020 06:22 EDT Oxygen Flow Rate Art 40.0 Liter 05/26/2020 06:22 EDT ABG Num of Draw Attempts 1 05/26/2020 06:22 EDT Sodium Level 137 mmol/L 05/26/2020 03:52 EDT Potassium Level 4.2 mmol/L 05/26/2020 03:52 EDT Chloride Level 109 mmol/L 05/26/2020 03:52 EDT Carbon Dioxide Level 23 mmol/L 05/26/2020 03:52 EDT Anion Gap 9 05/26/2020 03:52 EDT Glucose Level 271 mg/dL (High) 05/26/2020 03:52 EDT Blood Urea Nitrogen 28 mg/dL (High) 05/26/2020 03:52 EDT Creatinine Level 0.90 mg/dL 05/26/2020 03:52 EDT eGFR >60 mL/min/1.73m2 05/26/2020 03:52 EDT eGFR NonAfrican >60 mL/min/1.73m2 05/26/2020 03:52 EDT Bun/Creatinine 31.1 (High) 05/26/2020 03:52 EDT Calcium Level 7.8 mg/dL (Low) 05/26/2020 03:52 EDT Magnesium Level 2.7 mg/dL (High) 05/26/2020 03:52 EDT Phosphorus 2.8 mg/dL 05/26/2020 03:52 EDT Device Comment 1 Protocols Followed 05/26/2020 21:47 EDT Device Comment 1 Protocols Followed 05/26/2020 19:29 EDT Device Comment 1 Protocols Followed 05/26/2020 15:55 EDT Device Comment 1 Notified Nurse RBV 05/26/2020 11:16 EDT Device Comment 1 Protocols Followed 05/26/2020 06:08 EDT Glucose POC2 200 mg/dL (High) 05/26/2020 21:47 EDT Glucose POC2 274 mg/dL (High) 05/26/2020 19:29 EDT Glucose POC2 387 mg/dL (High) 05/26/2020 15:55 EDT Glucose POC2 285 mg/dL (High) 05/26/2020 11:16 EDT Glucose POC2 238 mg/dL (High) 05/26/2020 06:08 EDT CRP 1.8 mg/dL (High) 05/26/2020 03:52 EDT Lactate Dehydrogenase 267 Units/Liter (High) 05/26/2020 03:52 EDT Calcium Ionized 1.03 mmol/L (Low) 05/26/2020 03:52 EDT CK 81 Units/Liter 05/26/2020 03:52 EDT WBC 11.7 K/uL (High) 05/26/2020 03:52 EDT RBC 4.07 Million/uL (Low) 05/26/2020 03:52 EDT Hgb 12.0 g/dL (Low) 05/26/2020 03:52 EDT Hct 36.7 % (Low) 05/26/2020 03:52 EDT MCV 90.2 fL 05/26/2020 03:52 EDT MCH 29.5 pg 05/26/2020 03:52 EDT MCHC 32.7 Gram/dL 05/26/2020 03:52 EDT Platelet Count 246 K/uL 05/26/2020 03:52 EDT MPV 10.1 fL 05/26/2020 03:52 EDT RDW 13.2 % 05/26/2020 03:52 EDT Neut % 83.7 % (High) 05/26/2020 03:52 EDT Neut # 9.78 K/uL (High) 05/26/2020 03:52 EDT Lymph % 9.8 % (Low) 05/26/2020 03:52 EDT Lymph # 1.14 x10(3)/uL 05/26/2020 03:52 EDT Yuba % 5.5 % 05/26/2020 03:52 EDT Yuba # 0.64 K/uL 05/26/2020 03:52 EDT Eos % 0.0 % 05/26/2020 03:52 EDT Eos # 0.00 x10(3)/uL 05/26/2020 03:52 EDT Baso % 0.1 % 05/26/2020 03:52 EDT Baso # 0.01 x10(3)/uL 05/26/2020 03:52 EDT Slide Review No 05/26/2020 03:52 EDT IG# 0.10 x10(3)/uL (High) 05/26/2020 03:52 EDT IG% 0.90 % (High) 05/26/2020 03:52 EDT D Dimer Quant See Comment 05/26/2020 03:52 EDT Ferritin Level 298.2 ng/mL 05/26/2020 03:52 EDT documented in this encounter Plan of Treatment Not on file documented as of this encounter Visit Diagnoses Not on filedocumented in this encounter Additional Health Concerns Infection Onset Date Last Indicated Resolved Time MRSA (C) 06/11/2023 06/11/2023 documented as of this encounter Care Teams Pharmacy Scheduler Relationship Specialty Start Date End Date Annalise Carter, [address] [facility] [address] [place] [address] PCP - General Family Medicine 06/06/23 Chuck Mei PA-C [address], [facility] [address] [place] [address] Cardiology 11/01/23 documented as of this encounter
--- OUTSIDE RECORDS SUMMARY | 2025-05-05 12:23 | XMS_ITS | Encounter Summary ---
Author Organization [employer] ([place], [place], [place], [place]) Address [address] [place] [address] Care Team Providers Care Assistant Gm Of Content [employer] Delivery Name Role Phone Annalise Carter DO Primary Care Provider [phone] Chuck Mei PA-C Unavailable [phone] Encounter Details Date Type Department Care Team (Late st Contact Info) Description 05/26/2020 Transcribed Document [facility] [place] [address] [place] [address] ProviderLars MD [address] [place] [address] Social History Tobacco Use Types [...] Conversion Note - Lars ProviderMD - 05/26/2020 5:00 PM CDT Chart Check - Review Order Profile Entered On: 05/26/2020 19:33 EDT Performed On: 05/26/2020 17:00 EDT by Jerome Sullivan RN Chart Check Powerplans Initiated/Discontinued as Appropriate : Yes All Active Orders Reviewed : Yes Jerome Sullivan RN - 05/26/2020 19:33 EDT Electronically signed by [facility] Conversion [employer] Welder Mari at 12/27/2022 12:09 PM CDT documented in this encounter Plan of Treatment Not on file documented as of this encounter Visit Diagnoses Not on filedocumented in this encounter Additional Health Concerns Infection Onset Date Last Indicated Resolved Time MRSA (C) 06/11/2023 06/11/2023 documented as of this encounter Care Teams Assistant [employer] Of Content [employer] Delivery Relationship Specialty Start Date End Date Annalise Carter, [address] [facility] [address] [place] [address] PCP - General Family Medicine 06/06/23 Chuck Mei PA-C [address], [address] [place] [address] Cardiology 11/01/23 documented as of this encounter
--- OUTSIDE RECORDS SUMMARY | 2025-05-05 12:23 | XMS_ITS | Encounter Summary ---
Author Organization [employer] ([place], [place], [place], [place]) Address [address] [place] [address] Care Team Providers Care Military Aircraft Designer Name Role Phone Annalise Carter DO Primary Care Provider [phone] Chuck Mei PA-C Unavailable [phone] Encounter Details Date Type Department Care Team (Late st Contact Info) Description 05/29/2020 Transcribed Document [facility] [place] [address] [place] [address] ProviderLars MD [address] [place] [address] Social History Tobacco Use Types [...] Conversion Note - Lars ProviderMD - 05/29/2020 5:00 AM CDT Chart Check - Review Order Profile Entered On: 05/29/2020 4:03 EDT Performed On: 05/29/2020 5:00 EDT by Perlita Griffin Rn-[employer]gi[employer]ani Chart Check Powerplans Initiated/Discontinued as Appropriate : Yes All Active Orders Reviewed : Yes Perlita Griffin Rn-Traveler - 05/29/2020 4:03 EDT documented in this encounter Plan of Treatment Not on file documented as of this encounter Visit Diagnoses Not on filedocumented in this encounter Additional Health Concerns Infection Onset Date Last Indicated Resolved Time MRSA (C) 06/11/2023 06/11/2023 documented as of this encounter Care Teams Military Aircraft Designer Relationship Specialty Start Date End Date Annalise Carter, [address] [facility] [address] [place] [address] PCP - General Family Medicine 06/06/23 Chuck Mei PA-C [address], [address] [place] [address] Cardiology 11/01/23 documented as of this encounter
--- OUTSIDE RECORDS SUMMARY | 2025-05-05 12:23 | XMS_ITS | Encounter Summary ---
Author Organization [employer] ([place], [place], [place], [place]) Address [address] [place] [address] Care Team Providers Care Stock Handler Name Role Phone Annalise Carter DO Primary Care Provider [phone] Chuck Mei PA-C Unavailable [phone] Encounter Details Date Type Department Care Team (Late st Contact Info) Description 07/08/2020 Transcribed Document [facility] [place] [address] [place] [address] ProviderLars MD [address] [place] [address] Social History Tobacco Use Types [...] Conversion Note - Historical ProviderMD - 07/08/2020 3:19 PM CDT Patient: ROSARIO GREGG Age: 59 years Sex: Male : 1960 Associated Diagnoses: None Author: MICKI LAZAR MD-INT DATE OF SERVICE [ DOS ]: 07/08/2020 Basic Information SUBJECTIVE: Patient is seen and evaluated Admitted last night Feels better no hemoptysis today started on Steroids Review of Systems Constitutional: No fever, No chills. Eye: No recent visual problem, No icterus, No blurring, No visual disturbances. Ear/Nose/Mouth/Throat: No decreased hearing, No sore throat. Respiratory: No shortness of breath, No cough. Cardiovascular: No chest pain, No palpitations, No [...] available Current medications: (Selected) Inpatient Medications Ordered Ativan: 0.5 mg, IV Push, Q4H, PRN: Agitation Combivent Respimat CFC free 100 mcg-20 mcg/inh inhalation aerosol: 1 Puff, Inhalation, QID DuoNeb 0.5 mg-2.5 mg/3 mL inhalation solution: 3 mL, Nebulized Inhalation, Q6H, PRN: Shortness of Breath Lantus: 30 Units, SubCutaneous, BID Phenergan: 6.25 mg, IntraVENous, Q6H, PRN: Nausea Protonix: 40 mg, Oral, BID Tylenol: 650 mg, Oral, Q4H, PRN: Other (See Comment) Zofran: 4 mg, IV Push, Q4H, PRN: Nausea cloNIDine: 0.1 mg, Oral, Q4H, PRN: Hypertension dextromethorphan-guaiFENesin 30 mg-600 mg oral tablet, extended release: 1 Tab, Oral, BID formoterol-mometasone 5 mcg-200 mcg/inh inhalation aerosol: 2 Puff, Inhalation, BID furosemide: 20 mg, Oral, Daily insulin lispro 76 kg - 100 k kg - 100 kg scale, SubCutaneous, AC and at Bedtime levoFLOXacin: 500 mg, Oral, Daily metoprolol tartrate: 50 mg, Oral, BID multivitamin: 1 Tab, Oral, Daily predniSONE: 40 mg, Oral, Daily tamsulosin: 0.4 mg, Oral, At Bedtime Documented Medications Documented Brilinta (ticagrelor) 90 mg [...] mg/0.5 mL subcutaneous solution: 0.75 mg, SubCutaneous, , for 30 Day(s), 0 Refill(s) Vitamin D3 5000 units oral capsule: 1 Cap, Oral, Daily, with food, 100 Cap, 0 Refill(s) aspirin 81 mg oral delayed [...] Tab, Oral, Daily, 30 Tab, 0 Refill(s) metFORMIN 1000 mg oral tablet: 1 Tab, Oral, Daily, 0 Refill(s) multivitamin: 1 Tab, Oral, Daily, 0 Refill(s) tamsulosin 0.4 mg oral capsule: 1 Cap, Oral, Daily, for 90 Day(s), 90 Cap, 0 Refill(s), Medications (18) Active Scheduled: (12) albuterol-ipratropium CFC free 4 g inh 1 Puff, Inhalation, QID formoterol-mometasone 2 Puff, Inhalation, BID furosemide 20 mg tab 20 mg 1 Tab, Oral, Daily guaiF/dextromethor CR 600/30 mg tab 1 Tab, Oral, BID insulin glargine 1 unit/0.01 mL inj 30 Units 0.3 mL, SubCutaneous, BID insulin lispro 1 unit/0.01 mL inj 76 kg - 100 kg scale, SubCutaneous, AC and at Bedtime levofloxacin 500 mg tab 500 mg 1 Tab, Oral, Daily metoprolol tartrate 50 mg tab 50 mg 1 Tab, Oral, BID multiple vitamin (Thera) tab 1 Tab, Oral, Daily pantoprazole EC 40 mg tab 40 mg 1 Tab, Oral, BID predniSONE 20 mg tab 40 mg 2 Tab, Oral, Daily tamsulosin CR 0.4 mg cap 0.4 mg 1 Cap, Oral, At Bedtime Continuous: (0) PRN: (6) acetaminophen 325 mg tab 650 mg 2 Tab, Oral, Q4H albuterol-ipratropium inh 3 mL 3 mL, Nebulized Inhalation, Q6H cloNIDine 0.1 mg tab 0.1 mg 1 Tab, Oral, Q4H LORazepam 2 mg/mL inj 0.5 mg 0.25 mL, IV Push, Q4H ondansetron 4 mg/2 mL inj 4 mg 2 mL, IV Push, Q4H promethazine 25 mg/1 mL inj 6.25 mg 0.25 mL, IntraVENous, Q6H Problem list: Medical At risk for sleep apnea / IMO [id number] / Confirmed CAD - Coronary artery disease / SNOMED CT 5555366552 / Confirmed Diabetes mellitus / SNOMED CT 103257540 / Confirmed History of obstructive sleep apnea / IMO [id number] / Confirmed HLD - Hyperlipidemia / SNOMED CT 400701394 / Confirmed HTN (hypertension) / SNOMED CT [id number] / Confirmed, Active Problems (22) Arthritis At risk for sleep apnea CAD - Coronary artery disease Cataract Chronic anxiety Chronic depression Coronary artery disease Diabetes mellitus Diabetes mellitus type II Disorder of prostate Glaucoma Hard of hearing Heart valve History of obstructive sleep apnea HLD - Hyperlipidemia HTN (hypertension) Hyperlipidemia Hypertension Pneumonia Renal calculus Sleep apnea Stented coronary artery OBJECTIVE: Physical Examination General: Alert and oriented, No acute distress. Eye: Extraocular movements are intact, Normal conjunctiva. Sclera: Not icteric. HENT: Normocephalic, Normal hearing, Oral mucosa is moist. Neck: Supple, Non-tender, No jugular venous distention, No lymphadenopathy. Respiratory: Lungs are clear to auscultation, Respirations are non-labored, Breath sounds are equal, Symmetrical chest wall expansion. Cardiovascular: Normal rate, Regular rhythm, No murmur, No gallop, Good pulses equal in all extremities, No edema. Gastrointestinal: Soft, Non-tender, Non-distended, Normal bowel sounds, No organomegaly. Genitourinary: No costovertebral angle tenderness. Lymphatics: No lymphadenopathy neck, axilla, groin. Musculoskeletal: Normal range of motion, Normal strength, No tenderness, No swelling, No deformity. Integumentary: Warm, [place], Moist, No rash. Neurologic: Alert, Oriented, Normal [...] Troponin <0.015 (JUL 08) <0.015 (JUL 07) , No qualifying data available, Radiology Results (Last 48 hours) [id number] -- 07/07/2020 18:23 CTA Chest PE Protocol [...] pulmonarynodules. Groundglass opacity favoring mild pulmonary edema. . Impression and Plan - Hemoptysis. blood culture done. evaluated by Pulmonary - History of tobacco use. The patient quit. - Chronic obstructive pulmonary disease. - Volume overload. - History of COVID-19 in May 2020. The patient was seen by Infectious Disease during hospitalization. - Diabetes mellitus with hyperglycemia . on sliding scale. - Hypertension. We will start Vasotec as needed. - GI prophylaxis: Placed on protonix - DVT prophylaxis: Placed on Sequential compression device Code status: Full code Time spent: 37 minutes documented in this encounter Plan of Treatment Not on file documented as of this encounter Visit Diagnoses Not on filedocumented in this encounter Additional Health Concerns Infection Onset Date Last Indicated Resolved Time MRSA (C) 06/11/2023 06/11/2023 documented as of this encounter Care Teams Stock Handler Relationship Specialty Start Date End Date Annalise Carter, DO [address] [place] [address] PCP - General Family Medicine 06/06/23 Chuck Mei PA-C [address], [facility] [address] [place] [address] Cardiology 11/01/23 documented as of this encounter
--- OUTSIDE RECORDS SUMMARY | 2025-05-05 12:23 | XMS_ITS | Encounter Summary ---
Author Organization [employer] ([place], [place], [place], [place]) Address [address] [place] [address] Care Team Providers Care Deputy Administrator Name Role Phone Annalise Carter DO Primary Care Provider Chuck Mei PA-C Unavailable [phone] Encounter Details Date Type Department Care Team (Late st Contact Info) Description 05/30/2020 Transcribed Document [facility] Family Medicine [address] [place] [address] ProviderLars MD [address] [place] [address] Social History Tobacco Use Types [...] Conversion Note - Lars Jeffries MD - 05/30/2020 11:11 PM CDT Patient Education Materials Follows:Disease Prevent the Spread of COVID-19 if You [...] if you have questions about pets: https://www.cdc.gov/coronavirus/2019- ncov/faq.html#GZIGV73qyzcowq Monitor your symptoms. ??? Common symptoms of [...] and need to call 911, notify the tray drier operator that you have or think you [...] clean your hands with an alcohol-based hand endoscopy registered nurse that contains at least 60% alcohol. Clean your hands often. ??? Wash your handsoften with soap and water for at least 20 seconds. This is especially important after blowing your nose, coughing, or sneezing; going to the bathroom; and before eating or preparing food. ??? Use hand endoscopy registered nurse if soap and water are not available. Use an alcohol-based hand endoscopy registered nurse with at least 60% alcohol, covering all [...] and water or put them in the improvement intern. Clean all high-touch surfaces everyday. ??? Clean [...] body fluids on them. ??? Use household integrated pest management technician and disinfectants. Clean the area or item [...] 12/27/2019 Document Reviewed: 12/24/2019 Elsevier Patient Education ? 2019 [employer] COVID-19 Frequently Asked Questions COVID-19 (coronavirus disease) is an infection that is caused by a large family of viruses. Some viruses cause illness in people and others cause illness in animals like camels, cats, and bats. In some cases, the viruses that cause illness in animals can spread to humans. Where did the coronavirus come from? In August 2019, [place] told the World Health Organization (WHO) of several cases of lung disease (human respiratory illness). These cases were linked to an open seafood and livestock market in the city of [facility]. The link to the seafood and livestock [...] and virus naming World Health Organization (WHO): www.who.int/emergencies/diseases/klhdg-eewcldhsvge-5387/technical-guidance/nam baq-mty-ujnbxemmrxz-disease-(covid-2019)-qih-lyp-ofugo-rlrs-nirvgx-ba Who is at risk for complications from [...] a fever or cough. Stay at least 3?6 ft (1?2 m) away from them, if possible. ??? [...] relieve his or her symptoms by using erzi-yza-qxmdgjk medicines that treat sneezing, coughing, and runny [...] water are not available, use alcohol-based hand endoscopy registered nurse. ??? Avoid touching your face, mouth, nose, [...] a fever or cough. Stay at least 3?6 ft (1?2 m) away from them, if possible. ??? [...] (CDC): www.cdc.gov/coronavirus/2019-ncov/travelers/index.html ??? World Health Organization (WHO): www.who.int/emergencies/diseases/jbhrt-bjpqqnupjfi-8388/travel-advice Know the risks and take action to [...] water are not available, use alcohol-based hand endoscopy registered nurse. ??? Cough or sneeze into a tissue, [...] in hot, soapy water or use a improvement intern. Air-dry your dishes. ??? Wash laundry in [...] Organization (WHO) ??? Information and news updates: www.who.int/emergencies/diseases/idyup-ulkwesycyyz-3600 ??? Coronavirus health topic: www.who.int/health-topics/coronavirus ??? Questions and answers on COVID-19: www.who.int/news-room/q-a-detail/n-f-ubualogeuirte ??? Global tracker: [employer] [place] [employer] (AAP) ??? Information for families: www.healthychildren.org/Austrian/health-issues/conditions/chest-lungs/Pages/201 2-Menev-Mdrewvvifek.aspx The coronavirus situation is changing rapidly. Check [...] 12/24/2019 Document Revised: 12/24/2019 Document Reviewed: 12/24/2019 [employer] Patient Education ? 2020 [employer] COVID-19: How to Protect Yourself and Others Know how it spreads ??? There is currently no vaccine to prevent coronavirus disease 2019 (COVID-19). ??? The best way to prevent illness is to avoid being exposed to this virus. ??? The virus is thought to spread mainly from jwtirt-yl-lqyulo. ? Between people who are in close [...] are not readily available, use a hand endoscopy registered nurse that contains at least 60% alcohol. Cover [...] are at higher risk of getting very sick.https://www.cdc.gov/coronavirus/2019-ncov/vxlb-pohlj-kntgxjjqdfg/people-a u-riosog-dnhz.html Cover your mouth and nose with a cloth face cover when around others ??? You could spread COVID-19 to others even if you do not feel sick. ??? Everyone should wear a cloth face cover when they have to go out in public, for example to the grocery store or to hot die picker other necessities. ? Cloth face coverings [...] available, clean your hands with a hand endoscopy registered nurse that contains at least 60% alcohol. Clean and disinfect ??? Clean AND disinfect frequently touched surfaces daily. This includes tables, doorknobs, light switches, countertops, handles, desks, phones, keyboards, toilets, faucets, and sinks. https://www.cdc.gov/coronavirus/2019-ncov/rxeejca-sbvigri-vjzi/disinfecting-yo ur-home.html ??? If surfaces are dirty, clean them: Use detergent or soap and water prior to disinfection. cdc.gov/coronavirus 12/21/2019 This information is not intended to replace advice given to you by your health care provider. Make sure you discuss any questions you have with your health care provider. Document Released: 12/24/2019 Document Revised: 12/27/2019 Document Reviewed: 12/24/2019 Elsevier Patient Education ? 2019 [employer] COVID-19 COVID-19, also known as coronavirus [...] symptoms. This may include rest, fluids, and uoib-iah-hndurww medicines. Follow these instructions at home: Lifestyle [...] safe for you. General instructions ??? Take imzy-qyg-nkedtgr and prescription medicines only as told by [...] are not available, use an alcohol-based hand endoscopy registered nurse. ? Avoid touching your mouth, face, eyes, [...] water are not available, use alcohol-based hand endoscopy registered nurse. ??? Stay away from other members of [...] 10/03/2019 Document Revised: 12/24/2019 Document Reviewed: 10/03/2019 [employer] Patient Education ? 2020 [employer] documented in this encounter Plan of Treatment Not on file documented as of this encounter Visit Diagnoses Not on filedocumented in this encounter Additional Health Concerns Infection Onset Date Last Indicated Resolved Time MRSA (C) 06/11/2023 06/11/2023 documented as of this encounter Care Teams Deputy Administrator Relationship Specialty Start Date End Date Annalise Carter, DO [address] [facility] [address] [place] [address] PCP - General Family Medicine 06/06/23 Chuck Mei PA-C [address] [place] [address] Cardiology 11/01/23 documented as of this encounter
--- OUTSIDE RECORDS SUMMARY | 2025-05-05 12:23 | XMS_ITS | Encounter Summary ---
Author Organization [employer] ([place], [place], [place], [place]) Address [address] [place] [address] Care Team Providers Care Radiocommunications Technician Name Role Phone Annalise Carter DO Primary Care Provider [phone] Chuck Mei PA-C Unavailable Encounter Details Date Type Department Care Team (Late st Contact Info) Description 05/26/2020 Transcribed Document [facility] [place] [address] ProviderLars MD [address] [place] [address] Social History Tobacco Use Types [...] Conversion Note - Lars ProviderMD - 05/26/2020 2:00 AM CDT Grain Elevator Operator Details Entered On: 05/26/2020 7:07 EDT Performed On: 05/26/2020 2:00 EDT by Harriet Hayes RN Order Details Transport Mode Order Detail : Stretcher/Gurney Isolation Precautions Order Detail : Contact precautions, Droplet precautions Order Detail : N/A IV Order Detail : 1 Oxygen Order Detail : 1 Nurse Collect Order Detail : 1 Lift/Transfer : Moderate assist Central Line Order Detail : No Room Service : Appropriate Arterial Line : No Harriet Hayes RN - 05/26/2020 7:07 EDT documented in this encounter Plan of Treatment Not on file documented as of this encounter Visit Diagnoses Not on filedocumented in this encounter Additional Health Concerns Infection Onset Date Last Indicated Resolved Time MRSA (C) 06/11/2023 06/11/2023 documented as of this encounter Care Teams Radiocommunications Technician Relationship Specialty Start Date End Date Annalise Carter, [address] [facility] [address] [place] [address] PCP - General Family Medicine 06/06/23 Chuck Mei PA-C [address], [facility] [address] [place] [address] Cardiology 11/01/23 documented as of this encounter
--- OUTSIDE RECORDS SUMMARY | 2025-05-05 12:23 | XMS_ITS | Encounter Summary ---
Author Organization [employer] ([place], [place], [place], [place]) Address [address] [place] [address] Care Team Providers Care Refinery Operator Helper Crude Unit Name Role Phone Annalise Carter DO Primary Care Provider [phone] Chuck Mei PA-C Unavailable [phone] Encounter Details Date Type Department Care Team (Late st Contact Info) Description 05/29/2020 Transcribed Document [facility] [place] Family [place] [facility] [place] [address] ProviderLars MD [address] [place], [place] [id number] Social History Tobacco Use Types Packs/Day Years [...] Conversion Note - Lars ProviderMD - 05/29/2020 1:44 PM CDT Nursing Discharge Summary Entered On: 05/29/2020 13:46 EDT Performed On: 05/29/2020 13:44 EDT by Camille Fraser RN Discharge Documentation Discharge Date/Time : 05/29/2020 15:00 EDT Patient Disposition, General : Discharge Discharge To : Home with ambulatory/outpatient follow-up Mode Of Departure, General Discharge : Private vehicle Accompanied By, Discharge : Sibling IV Discontinued : Yes Personal Belongings With Patient : Yes Prescriptions Given to Patient : Other: meds to beds Discharge Instructions Reviewed With, Opportunity For Questions Given : Patient Patient Education Completed : Yes Teaching Method : Explanation, Printed materials Teaching Evaluation : Verbalizes understanding Camille Fraser RN - 05/29/2020 13:44 EDT documented in this encounter Plan of Treatment Not on file documented as of this encounter Visit Diagnoses Not on filedocumented in this encounter Additional Health Concerns Infection Onset Date Last Indicated Resolved Time MRSA (C) 06/11/2023 06/11/2023 documented as of this encounter Care Teams Refinery Operator Helper Crude Unit Relationship Specialty Start Date End Date Annalise Carter, DO [address] [place] [address] PCP - General Family Medicine 06/06/23 Chuck Mei PA-C [address], [facility] [address] [place] [address] Cardiology 11/01/23 documented as of this encounter
--- OUTSIDE RECORDS SUMMARY | 2025-05-05 12:23 | XMS_ITS | Encounter Summary ---
Author Organization [employer] ([place], [place], [place], [place]) Address [address] [place] [address] Care Team Providers Care Lighting Engineer Name Role Phone Annalise Carter DO Primary Care Provider [phone] Chuck Mei PA-C Unavailable [phone] Encounter Details Date Type Department Care Team (Late st Contact Info) Description 05/28/2020 Transcribed Document [facility] [place] Family Medicine [address] [place] [address] ProviderLars MD [address] [place], [place] [id number] Social History Tobacco Use Types Packs/Day Years [...] Conversion Note - Lars ProviderMD - 05/28/2020 10:40 AM CDT Medical Technologist Inpatient Document Entered On: 05/28/2020 10:43 EDT Performed On: 05/28/2020 10:40 EDT by HELENA BERRIOS Medical Technologist Inpatient Document Reason for Medical Technologist Visit : Blood glucose medication management Endocrine/Metabolic History : Diabetes Diabetes Type : Diabetes, Type 2 Hyperglycemic Medication Regime, History : Basal insulin, Bolus insulin Hyperglycemic Med Regime, Inpatient : Basal insulin, Correction insulin Diabetes Education Assessment Summary : Chart rev regarding BG FSBS: [phone] May 26-May 28 pt has required a total of 124 units of correction insulin in this time frame pt is receiving steroids. per adm MAR pt takes 70 units of Lantus/day and 25 units of Humalog/4 times a day at home HgbA1c is 7.6% consider increase in Lantus dose for better BG control DNC avail per consult. HELENA BERRIOS 05/28/2020 10:40 EDT Electronically signed by [facility] Conversion Hotel Desk Clerk Cerner at 12/27/2022 12:04 PM CDT documented in this encounter Plan of Treatment Not on file documented as of this encounter Visit Diagnoses Not on filedocumented in this encounter Additional Health Concerns Infection Onset Date Last Indicated Resolved Time MRSA (C) 06/11/2023 06/11/2023 documented as of this encounter Care Teams Lighting Engineer Relationship Specialty Start Date End Date Annalise Carter, DO [address] [place] [address] PCP - General Family Medicine 06/06/23 Chuck Mei PA-C [address], [address] [place] [address] Cardiology 11/01/23 documented as of this encounter
--- OUTSIDE RECORDS SUMMARY | 2025-05-05 12:23 | XMS_ITS | Encounter Summary ---
Author Organization [employer] ([place], [place], [place], [place]) Address [address] [place] [address] Care Team Providers Care Health And Safety Director Name Role Phone Annalise Carter DO Primary Care Provider [phone] Chuck Mei PA-C Unavailable [phone] Encounter Details Date Type Department Care Team (Late st Contact Info) Description 05/23/2020 Transcribed Document [facility] [address] [place] [address] ProviderLars MD [address] [place] [address] Social History Tobacco Use Types [...] Conversion Note - Lars ProviderMD - 05/23/2020 4:17 PM CDT Valuables and Belongings Entered On: 05/23/2020 20:13 EDT Performed On: 05/23/2020 16:17 EDT by Aparna Rockwell Registered Nurse Valuables and Belongings Valuables and Belongings : Clothing, Personal items, Medications Clothing : Common streetwear Clothing Disposition : Bedside Personal Items : Cell phone, Other: check book Personal Items Disposition : Bedside Medication Disposition : Bedside Medication Brought With Patient : Yes Aparna Rockwell Registered Nurse - 05/23/2020 20:13 EDT Electronically signed by [place], [facility] Conversion Medical Laboratory Technical Officer Cerner at 12/27/2022 11:47 AM CDT documented in this encounter Plan of Treatment Not on file documented as of this encounter Visit Diagnoses Not on filedocumented in this encounter Additional Health Concerns Infection Onset Date Last Indicated Resolved Time MRSA (C) 06/11/2023 06/11/2023 documented as of this encounter Care Teams Health And Safety Director Relationship Specialty Start Date End Date Annalise Carter, [address] [facility] [address] [place] [address] PCP - General Family Medicine 06/06/23 Chuck Mei PA-C [address], [facility] [address] [place] [address] Cardiology 11/01/23 documented as of this encounter
--- OUTSIDE RECORDS SUMMARY | 2025-05-05 12:23 | XMS_ITS | Encounter Summary ---
Author Organization [employer] ([place], [place], [place], [place]) Address [address] [place] [address] Care Team Providers Care Bunghole Borer Name Role Phone Emma Annalise Bre BENITEZ Primary Care Provider [phone] Chuck Mei PA-C Unavailable [phone] Encounter Details Date Type Department Care Team (Late st Contact Info) Description 05/28/2020 Transcribed Document [facility] Pulm & Critical Care Medicine [address] [facility] [address] [place] [id number] Orville Moon MD [address] [facility] [address] [place] [address] Social History Tobacco Use Types Packs/Day Years [...] Conversion Note - Orville Moon MD - 05/28/2020 10:20 AM EDT Patient: ROSARIO GREGG Age: 59 years Sex: Male : 1960 Associated Diagnoses: None Author: ORVILLE MOON MD [facility] CCM Progress Note Requesting: Dr. Billings Reason: COVID-19 Basic Information CC: I am breathing better than I was yesterday HPI: 59-year-old male who has past medical history of CAD with stents and CABG, DM, HTN, HLP, Depression, Anxiety, stated sleep apnea, and BPH who tested positive for COVID 19 this past Monday in [place], [place]. He presented to ER with shortness [...] Urine output 1150 ml past 24 hours. 05/25: Patient is awake and alert and oriented. He is on OptiFlow at 50 L and 70% FiO2. He is afebrile and hemodynamically stable. White count is 11.6 up from yesterday's 10.6. Hemoglobin is stable at 11.8. He is being diuresis of Lasix 20 IV twice a day. I/O balance -388. Chest x-ray with persistent edema., Overall patient states that he is feeling better good effort with incentive spirometer, positive hyperglycemia, Lantus was increased to 15 U twice daily 05/26 patient is currently on OptiFlow. 40 L/min and 60% FiO2 T-max is 98.5 T-current 97.8 white blood cells are 11.6. BUN and creatinine is 0.90 from 1 sodium is 137 was 142. Patient is hyperglycemic and Lantus was increased to 30 units twice daily (he required supplement of 60 units regular insulin subcu over last 24 hours) he remains on Lasix 20 mg IV twice a day which we will decrease to daily and will limit fluid intake as patient's risk almost received 2 L orally., Positive bowel movement good appetite. Total negative balance is 2531 05/27: Seen from door in order to preserve PPE. Currently on 3L NC, no events overnight per RN. Remains slightly hypoxic on morning ABG. Labs stable with good UOP. Wants to go home. 05/28: Seen this am in bed. He is on room air and appears comfortable. He states he feels he is breathing fine, denies chest pain, some cough with sputum production of clear. No hemoptysis. Denies nausea or vomiting and no diarrhea. Still some intermittent headaches. He is eager to go home. No fevers. Blood pressure is stable. LDH and ferritin level trending down. Review of Systems Constitutional: Fatigue, No fever. Eye: No visual disturbances. Ear/Nose/Mouth/Throat: No sore throat. Respiratory: Cough, Sputum production, No shortness of breath, No hemoptysis. Cardiovascular: No chest pain. Gastrointestinal: No nausea, No vomiting, No abdominal pain. Immunologic: Not immunocompromised. Musculoskeletal: No back pain. Integumentary: No rash. Neurologic: Headache. Overall feeling better Health Status Allergies: [...] Eyes Both, TID, PRN: Dry Eyes Lantus: 30 Units, SubCutaneous, [id number] Lasix: 20 mg, IV Push, Daily Lopressor: 50 mg, Oral, BID Lovenox: 30 mg, SubCutaneous, [id number] Mucinex: 600 mg, Oral, BID Nitrostat: 0.4 mg, SubLINgual, Q5Min, PRN: Chest Pain Pepcid: 20 mg, Oral, BID Tylenol: 650 mg, Oral, Q4H, PRN: Pain (Mild 1-3) Zofran: 4 mg, IV Push, Q4H, PRN: Nausea/Vomiting atorvastatin: 40 mg, Oral, At Bedtime calcium gluconate + Sodium Chloride 0.9% intravenous solution 100 mL: 2 Gram, 20 mL, 120 mL/Hr, IV Piggyback, Daily, PRN: Other (See Comment) calcium gluconate + Sodium Chloride 0.9% intravenous solution 100 mL: 2 Gram, 20 mL, 120 mL/Hr, IV Piggyback, Q12H, PRN: Other (See Comment) calcium gluconate: 1 Gram, 10 mL, 60 mL/Hr, IV Piggyback, Daily, PRN: Other (See Comment) dexamethasone: 6 mg, Oral, Daily formoterol-mometasone 5 mcg-200 mcg/inh inhalation aerosol: 2 Puff, Inhalation, BID insulin lispro sliding scale: Scale D:, SubCutaneous, AC and at Bedtime labetalol: 10 mg, IV Push, Q3H, PRN: Hypertension lisinopril: 5 mg, Oral, Daily magnesium sulfate: 2 Gram, 50 mL, 25 mL/Hr, IV Piggyback, Daily, PRN: Other (See Comment) magnesium sulfate: 2 Gram, 50 mL, 25 mL/Hr, IV Piggyback, Q2H, PRN: Other (See Comment) potassium chloride 10 mEq/50 mL intravenous solution: 10 mEq, 50 mL, 50 mL/Hr, IV Piggyback, Q1H, PRN: Other (See Comment) potassium chloride 20 mEq oral tablet, extended release: 20 mEq, 1 Tab, Oral, Q2H, PRN: Other (See Comment) potassium chloride 20 mEq oral tablet, extended release: 60 mEq, 3 Tab, Oral, Q2H, PRN: Other (See Comment) remdesivir: 250 mL/Hr, IV Piggyback, [id number] sodium phosphate: 15 mMole, 5 mL, 50 mL/Hr, IV Piggyback, Daily, PRN: Other (See Comment) sodium phosphate: 15 mMole, 5 mL, 50 mL/Hr, IV Piggyback, Q6H, PRN: Other (See Comment) ticagrelor: 90 mg, Oral, BID Prescriptions Prescribed Brilinta (ticagrelor) 90 mg oral [...] Oral, Daily, 30 Cap, 0 Refill(s), Medications (31) Active Scheduled: (15) albuterol-ipratropium CFC free 4 g inh 1 Puff, Inhalation, RT_QID aspirin EC 81 mg tab 81 mg 1 Tab, Oral, Daily atorvastatin 40 mg tab 40 mg 1 Tab, Oral, At Bedtime dexamethasone 4 mg tab 6 mg 1.5 Tab, Oral, Daily enoxaparin 30 mg/0.3 ml inj 30 mg 0.3 mL, SubCutaneous, [id number] famotidine 20 mg tab 20 mg 1 Tab, Oral, BID furosemide 20 mg/2 mL inj 20 mg 2 mL, IV Push, Daily guaiFENesin 600 mg ER tab 600 mg 1 Tab, Oral, BID insulin glargine 1 unit/0.01 mL inj 30 Units 0.3 mL, SubCutaneous, [id number] insulin lispro 1 unit/0.01 mL inj Scale D:, SubCutaneous, AC and at Bedtime lisinopril 5 mg tab 5 mg 1 Tab, Oral, Daily metoprolol tartrate 50 mg tab 50 mg 1 Tab, Oral, BID mometasone/formoterol 200/5 mcg inh 2 Puff, Inhalation, BID remdesivir , IV Piggyback, [id number] ticagrelor 90 mg tab 90 mg 1 Tab, Oral, BID Continuous: (0) PRN: (16) acetaminophen 325 mg tab 650 mg 2 Tab, Oral, Q4H albuterol-ipratropium inh 3 mL 3 mL, Nebulized Inhalation, RT_Q3H calcium gluconate 1 Gram 10 mL, IV Piggyback, Daily calcium gluconate + NaCl 0.9% 100 mL 2 Gram 20 mL, IV Piggyback, Daily calcium gluconate + NaCl 0.9% 100 mL 2 Gram 20 mL, IV Piggyback, Q12H labetalol 100 mg/20 mL inj 10 mg 2 mL, IV Push, Q3H magnesium sulfate 2 Gram 50 mL, IV Piggyback, Daily magnesium sulfate 2 Gram 50 mL, IV Piggyback, Q2H nitroglycerin 0.4 mg tab # 25 btl 0.4 mg 1 Tab, SubLINgual, Q5Min ocular lubricant 1% soln 0.4 mL 1 Drop, Eyes Both, TID ondansetron 4 mg/2 mL inj 4 mg 2 mL, IV Push, Q4H potassium chloride 10 mEq 50 mL, IV Piggyback, Q1H potassium chloride CR 20 mEq tab 20 mEq 1 Tab, Oral, Q2H potassium chloride CR 20 mEq tab 60 mEq 3 Tab, Oral, Q2H sodium phosphate 15 mMole 5 mL, IV Piggyback, Daily sodium phosphate 15 mMole 5 mL, IV Piggyback, Q6H Problem list: All Problems Arthritis / SNOMED CT 3305789 / Confirmed CAD - Coronary artery disease / SNOMED CT 3010776315 / Confirmed Cataract / SNOMED CT [id number] / Confirmed Chronic anxiety / SNOMED CT 259281729 / Confirmed Chronic depression / SNOMED CT 301912884 / Confirmed Coronary artery disease / SNOMED CT 1862808615 / Confirmed Diabetes mellitus / SNOMED CT 086641707 / Confirmed Diabetes mellitus type II / SNOMED CT 67461842 / Confirmed Disorder of prostate / SNOMED CT 49484081 / Confirmed Glaucoma / SNOMED CT 75253526 / Confirmed Hard of hearing / SNOMED CT 036715037 / Confirmed Heart valve / SNOMED CT 945206444 / Confirmed History of obstructive sleep apnea / IMO 77598792 / Confirmed HLD - Hyperlipidemia / SNOMED CT 709339348 / Confirmed HTN (hypertension) / SNOMED CT [id number] / Confirmed Hyperlipidemia / SNOMED CT 98625605 / Confirmed Hypertension / SNOMED CT 85776025 / Confirmed Pneumonia / SNOMED CT 606946493 / Confirmed Renal calculus / SNOMED CT 627439405 / Confirmed Sleep apnea / SNOMED CT 828027049 / Confirmed Stented coronary artery / SNOMED CT 2422816782 / Confirmed, Active Problems (21) Arthritis CAD [...] Last Charted Minimum Maximum Temp 98.5 (MAY 28 05:37) 98.0 (MAY 27 17:00) 98.0 (MAY 27 17:00) Apical HR 70 (MAY 27 21:33) 70 (MAY 16 21:33) 70 (MAY 27 21:33) Mon HR 64 (MAY 17 08:45) 58 (MAY 16 20:53) 78 (MAY 16 12:00) Resp Rate 16 (MAY 28 05:37) 16 (MAY 16 11:02) 16 (MAY 16 11:02) SBP 100 (MAY 28 06:00) 99 (SEP 17 05:37) 133 (MAY 16 21:15) DBP L 53 (MAY 17 06:00) L 53 (MAY 17 06:00) 77 (MAY 16 17:00) MAP 70 (MAY 17 06:00) 70 (MAY 17 06:00) 91 (MAY 16 17:00) SpO2 97 (MAY 28 06:00) L 86 (MAY 16 12:00) 98 (MAY 16 15:42) General: Alert and oriented, No acute distress. Eye: Pupils are equal, round and reactive to light. HENT: Normocephalic. Neck: Supple. Respiratory: Respirations are non-labored, Breath sounds are equal, Symmetrical chest wall expansion. Breath sounds: Bilateral, Base, Diminished. Cardiovascular: Normal rate. Gastrointestinal: Soft, Non-tender, Non-distended, Normal bowel sounds. Musculoskeletal: Normal range of motion. Integumentary: Warm, Dry. Neurologic: Alert, Oriented. Psychiatric: Cooperative, Appropriate mood & affect. Review / Management Results review: Labs (Last four charted values) WBC H 10.9 (SEP 17) H 11.3 (SEP 16) H 11.7 (SEP 15) H 11.6 (SEP 14) HB 13.5 (SEP 17) L 13.2 (SEP 16) L 12.0 (SEP 15) L 11.8 (SEP 14) HCT 40.6 (SEP 17) L 39.4 (SEP 16) L 36.7 (SEP 15) L 36.1 (SEP 14) Plt 276 (SEP 17) 260 (SEP 16) 246 (SEP 15) 226 (SEP 14) Na 138 (SEP 17) 139 (SEP 16) 137 (SEP 15) 142 (SEP 14) K 4.1 (SEP 17) 4.5 (SEP 16) 4.2 (SEP 15) 4.9 (SEP 14) Cl 109 (SEP 17) 110 (SEP 16) 109 (SEP 15) H 114 (SEP 14) CO2 23 (SEP 17) 23 (SEP 16) 23 (SEP 15) 22 (SEP 14) BUN 22 (SEP 17) 22 (SEP 16) H 28 (SEP 15) H 28 (SEP 14) Cr 0.80 (SEP 17) 0.80 (SEP 16) 0.90 (SEP 15) 1.00 (SEP 14) Glu R H 196 (SEP 17) H 146 (SEP 16) H 271 (SEP 15) H 176 (SEP 14) Ca L 8.0 (SEP 17) L 8.2 (SEP 16) L 7.8 (SEP 15) 8.4 (SEP 14) Lactic 1.0 (SEP 13) 1.5 (SEP 12) PT 10.8 (SEP 12) 10.9 (SEP 12) INR 1.0 (SEP 12) 1.0 (SEP 12) PTT 32.4 (SEP 12) AST 21 (SEP 14) 23 (SEP 13) 22 (MAY 12) ALT 25 (SEP 14) 27 (SEP 13) 27 (SEP 12) ALK P 67 (SEP 14) 67 (SEP 13) 63 (SEP 12) T Bili 0.3 (MAY 14) 0.4 (MAY 13) 0.5 (MAY 12) PTN 7.1 (MAY 14) 7.1 (MAY 13) 6.4 (MAY 12) ALB L 2.7 (SEP 14) L 2.7 (MAY 13) L 2.6 (MAY 12) Troponin <0.015 (MAY 13) <0.015 (MAY 12) . MAY 28 06:49 138 109 22 / H 196 4.1 23 0.80 \ Blood Gases (Current Encounter/Past 24 Hours) No Blood Gas Results Found (Past 24 Hours) No Radiology Results Found Impression: Normal sized left ventricle. Moderate left ventricular hypertrophy. Visually estimated ejection fraction 55% +/- 5%. Normal systolic function. Normal left ventricular diastolic function. Mild left atrial enlargement. Dilated right ventricle. No masses or thrombi. RVSP 17 COVID-19 Positive No Radiology Results Found Impression and Plan Acute Hypoxic Respiratory Failure COVID-19 Pneumonia Diffuse airspace and interstitial infiltrates ; no change Small bilateral pleural effusions Sleep Apnea not treated Previous smoker Cardiac: Negative troponin Normal BNP H/O CAD with CABG and stents ID: COVID -19 pneumonia Leukocytosis: improving Renal: Hypokalemia; resolved stable goal Endo: DM PLAN: Oxygen supplementation to keep sat 92-96% Seen on room air and comfortable today (had been on 2L) Alternate Optiflow with BiPAP when required Combivent two puff QID Dulera 2 puffs BID IS COVID -19 order set Mucinex 600 mg po BID Cardiology following Lasix 20 mg IV daily Fluid restriction at 1500 ml Blood cultures pending ID following: Dexamethasone per ID 6 mg IV daily until 06/02 Remdesivir started on May 23 until 05/28 S/P Convalescence plasma per ID on 05/23 Prophylaxis: Pepcid, Lovenox Glycemic control per primary: SSI, Lantus Possibly home tomorrow per primary team PT/OT per primary team Pulmonary will sign off, recall if needed. documented in this encounter Plan of Treatment Not on file documented as of this encounter Visit Diagnoses Not on filedocumented in this encounter Additional Health Concerns Infection Onset Date Last Indicated Resolved Time MRSA (C) 06/11/2023 06/11/2023 documented as of this encounter Care Teams Bunghole Borer Relationship Specialty Start Date End Date Annalise Carter, DO 8 [facility] [address] [place] [address] PCP - General Family Medicine 06/06/23 Chuck Mei PA-C [address], [facility] [address] [place] [id number] Cardiology 11/01/23 documented as of this encounter
--- OUTSIDE RECORDS SUMMARY | 2025-05-05 12:23 | XMS_ITS | Encounter Summary ---
Author Organization [employer] ([place], [place], [place], [place]) Address [address] [place] [address] Care Team Providers Care Jelly Filter Tender Name Role Phone Annalise Carter DO Primary Care Provider [phone] Chuck eMi PA-C Unavailable [phone] Encounter Details Date Type Department Care Team (Late st Contact Info) Description 05/28/2020 Transcribed Document [facility] [place] [address] [place] [address] ProviderLars MD [address] [place] [address] Social History Tobacco Use Types [...] Conversion Note - Lars ProviderMD - 05/28/2020 11:21 AM CDT Patient: ROSARIO GREGG Age: 59 [...] diabetes mellitus, BPH, and hypertension presented to [facility] ED on 05/23/2024 worsening shortness of breath and cough for the last week. Tested for COVID-19 on this past Monday at [place], [place] with results back on Monday that [...] but sleeping in bed. Has eaten breakfast. 05/27/20: Much better today. Transferred out of the ICU. Sitting up. Down to 3 L of oxygen and comfortable. Less cough, less chest pain. hoping to go home soon 05/28/20: Sitting up, feeling better. Currently comfortable on 2 L of oxygen but says that he has taken it off and feels well without it. He would like to take oxygen off and get up and have a shower today. Ambulatory around the room. Eating well. Less cough. No chest pain ROS: Afebrile. Hemodynamically stable. No rash, diarrhea, infusion site reactions. Allergies: Morphine Medications: Medications by Classification Immunology dexamethasone - 6 mg, Oral, Tab, Daily, order duration: 9 Day(s), Routine Anticoagulant enoxaparin (Lovenox) - 30 mg, SubCutaneous, Inj, [id number] Cardiovascular aspirin (Ecotrin) - 81 mg, Oral, EC Tab, Daily, Routine nitroglycerin (Nitrostat) - 0.4 mg, SubLINgual, Tab, Q5Min, PRN for Chest Pain, Routine metoprolol (Lopressor) - 50 mg, Oral, Tab, BID, Routine labetalol - 10 mg, IV Push, Inj, Q3H, PRN for Hypertension, Routine furosemide (Lasix) - 20 mg, IV Push, Inj, Daily lisinopril - 5 mg, Oral, Tab, Daily, [...] - 20 mg, Oral, Tab, BID, Routine magnesium sulfate - 2 Gram 50 mL, IV Piggyback, Inj, Daily, Administer over 2 Hour(s), PRN for Other (See Comment), Routine magnesium sulfate - 2 Gram 50 mL, IV Piggyback, Inj, Q2H, Administer over 2 Hour(s), PRN for Other (See Comment), Routine sodium phosphate - 15 mMole 5 mL, IV Piggyback, Inj, Daily, Administer over 5 Hour(s), PRN for Other (See Comment), Routine sodium phosphate - 15 mMole 5 mL, IV Piggyback, Inj, Q6H, Administer over 5 Hour(s), PRN for Other (See Comment), Routine Endocrine insulin glargine (Lantus) - 30 Units, SubCutaneous, Inj, [id number] insulin lispro (insulin lispro sliding scale) - Scale D:, SubCutaneous, Inj, AC and at Bedtime, Routine Neuro magnesium sulfate - 2 Gram 50 mL, IV Piggyback, Inj, Daily, Administer over 2 Hour(s), PRN for Other (See Comment), Routine *Duplicate* magnesium sulfate - 2 Gram 50 mL, IV Piggyback, Inj, Q2H, Administer over 2 Hour(s), PRN for Other (See Comment), Routine *Duplicate* HEENT ocular lubricant (Isopto Tears) - 1 Drop, Eyes Both, Drops, TID, PRN for Dry Eyes, Routine Pain Meds aspirin (Ecotrin) - 81 mg, Oral, EC Tab, Daily, Routine *Duplicate* acetaminophen (Tylenol) - 650 mg, Oral, Tab, Q4H, PRN for Pain (Mild 1-3), Routine Vitamins calcium gluconate - 1 Gram 10 mL, IV Piggyback, Inj, Daily, Administer over 60 Minute(s), PRN for Other (See Comment), Routine calcium gluconate + Sodium Chloride 0.9% intravenous solutio - 2 Gram 20 mL, IV Piggyback, Inj, Daily, Administer over 60 Minute(s), PRN for Other (See Comment), Routine calcium gluconate + Sodium Chloride 0.9% intravenous solutio - 2 Gram 20 mL, IV Piggyback, Inj, Q12H, Administer over 60 Minute(s), PRN for Other (See Comment), Routine magnesium sulfate - 2 Gram 50 mL, IV Piggyback, Inj, Daily, Administer over 2 Hour(s), PRN for Other (See Comment), Routine *Duplicate* magnesium sulfate - 2 Gram 50 mL, IV Piggyback, Inj, Q2H, Administer over 2 Hour(s), PRN for Other (See Comment), Routine *Duplicate* potassium chloride (potassium chloride 10 mEq/50 mL intraven - 10 mEq 50 mL, IV Piggyback, Inj, Q1H, Administer over 1 Hour(s), PRN for Other (See Comment), Routine potassium chloride (potassium chloride 20 mEq oral tablet, e - 20 mEq 1 Tab, Oral, CR Tab, Q2H, PRN for Other (See Comment), Routine potassium chloride (potassium chloride 20 mEq oral tablet, e - 60 mEq 3 Tab, Oral, CR Tab, Q2H, PRN for Other (See Comment), Routine Undefined Medications remdesivir - Inj, IV Piggyback, [id number] for 4 Day(s) ticagrelor - 90 mg, Oral, Tab, BID, Routine PE: Vitals Signs (last 24 hrs) Last Charted Minimum Maximum Temp 98.5 (MAY 28 05:37) 98.0 (MAY 27 17:00) 98.0 (MAY 27 17:00) Apical HR 70 (MAY 28 09:33) 70 (MAY 27 21:33) 70 (MAY 27 21:33) Mon HR 67 (MAY 28 11:15) 58 (MAY 16 20:53) 78 (MAY 27 12:00) Resp Rate 16 (MAY 28 05:37) 16 (MAY 27 15:42) 16 (MAY 27 15:42) SBP 100 (MAY 28 06:00) 99 (MAY 28 05:37) 133 (MAY 27 21:15) DBP L 53 (MAY 28 06:00) L 53 (MAY 28 06:00) 77 (MAY 27 17:00) MAP 70 (MAY 28 06:00) 70 (MAY 28 06:00) 91 (MAY 27 17:00) SpO2 97 (MAY 28 06:00) L 86 (MAY 27 12:00) 98 (MAY 27 15:42) Exam: Constitutional: NAD, alert, WD/WN, appears older than stated age, obese. ambulatory in room. HEENT: NC/AT. External ears, eyes, nose, and lip are normal Respiratory: non-labored breathing, on NC. no cough appreciated Cardio: RRR GI: non-distended, obese : no awad MS: Moving all 4 extremities Derm: No rashes on exposed skin Neuro: AOx3. independently ambulatory Psych: appropriate PIV Labs: Labs (Last four charted values) WBC H 10.9 (MAY 17) H 11.3 (SEP 16) H 11.7 (SEP 15) H 11.6 (SEP 14) HB 13.5 (MAY 17) L 13.2 (MAY 16) L 12.0 (SEP 15) L 11.8 [...] (SEP 15) 8.4 (SEP 14) Lactic 1.0 (MAY 13) 1.5 (MAY 12) PT 10.8 (MAY 12) 10.9 (SEP 12) INR 1.0 (MAY 12) 1.0 (MAY 12) PTT 32.4 (MAY 12) AST 21 (SEP 14) 23 (SEP 13) 22 (SEP 12) ALT 25 (SEP 14) 27 (SEP 13) 27 (MAY 12) ALK P 67 (SEP 14) 67 (MAY 13) 63 (MAY 12) T Bili 0.3 (SEP 14) 0.4 (MAY 13) 0.5 (MAY 12) PTN 7.1 (MAY 14) 7.1 (MAY 13) 6.4 (MAY 12) ALB L 2.7 (SEP 14) L 2.7 (SEP 13) L 2.6 (MAY 12) Troponin <0.015 (MAY 13) <0.015 (MAY 12) Creatinine Clearance (Current Encounter/Past 24 Hours) Creatinine Level 0.80 mg/dL 05/28/2020 07:56 Bun/Creatinine 27.5 HI 05/28/2020 07:56 Estimated Creatinine Clearance 96.97 mL/Min 05/27/2020 07:10 Micro: 05/23 blood cultures pending, so far negative 05/23 COVID-19 PCR positive sputum cx contaminated Rad: No Radiology Results Found Personally reviewed above CXR from today: stable bilateral infiltrates IMPRESSION: - Severe COVID-19 pneumonia with acute hypoxic respiratory failure. Less likely coinfection with negative procalcitonin. inflammatory markers trending down. much improved over the past 48 hrs - Acute hypoxic respiratory failure: improved - Type 2 diabetes mellitus - Coronary artery disease/stent/CABG - Hypertension RECOMMENDATIONS/PLANS: - Monitor blood cultures, so far negative - completed remdesivir 5 days total on 05/27 - s/p 1 unit convalescent plasma on 05/23 - Continue Dexamethasone 6 mg daily for 10 days until 06/02 - Continue O2 support. wean as tolerated - Continue phylactic anticoagulation while admitted Much improved. Patient would like to discharge home. From my perspective could discharge home as soon as today or tomorrow if he feels up for it. Will need to check and see if he qualifies for home oxygen. Discussed the importance of monitoring oxygen saturations at home. Recommended obtaining pulse oximeter for home monitoring. Per most recent CBC guidance he will need to isolate for 20 days from symptom onset. He thinks symptoms started in the first few days of May. I think an additional week of isolation at home after discharge would be reasonable. He lives with his mother who also tested positive and is currently admitted. I will follow peripherally. Call if any new concerns. documented in this encounter Plan of Treatment Not on file documented as of this encounter Visit Diagnoses Not on filedocumented in this encounter Additional Health Concerns Infection Onset Date Last Indicated Resolved Time MRSA (C) 06/11/2023 06/11/2023 documented as of this encounter Care Teams Jelly Filter Tender Relationship Specialty Start Date End Date Annalise Carter, [address] [facility] [address] [place] [address] PCP - General Family Medicine 06/06/23 Chuck Mei PA-C [address] [facility] [address] [place] [address] Cardiology 11/01/23 documented as of this encounter
--- OUTSIDE RECORDS SUMMARY | 2025-05-05 12:23 | XMS_ITS | Encounter Summary ---
Author Organization [employer] ([place], [place], [place], [place]) Address [address] [place] [address] Care Team Providers Care Surgical Dressing Maker Name Role Phone Annalise Carter DO Primary Care Provider [phone] Chuck Mei PA-C Unavailable [phone] Encounter Details Date Type Department Care Team (Late st Contact Info) Description 05/26/2020 Transcribed Document [facility] [place] Medicine [address] [place] [address] ProviderLars MD [address] [place] [address] Social History Tobacco Use Types [...] Note - Lars ProviderMD - 05/26/2020 5:00 AM CDT Chart Check - Review Order Profile Entered On: 05/26/2020 7:07 EDT Performed On: 05/26/2020 5:00 EDT by Harriet Hayes RN Chart Check Powerplans Initiated/Discontinued as Appropriate : Yes All Active Orders Reviewed : Yes Harriet Hayes RN - 05/26/2020 7:07 EDT documented in this encounter Plan of Treatment Not on file documented as of this encounter Visit Diagnoses Not on filedocumented in this encounter Additional Health Concerns Infection Onset Date Last Indicated Resolved Time MRSA (C) 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
--- OUTSIDE RECORDS SUMMARY | 2025-05-05 12:23 | XMS_ITS | Encounter Summary ---
Author Organization [facility] ([place], [place], [place], [place]) Address [address] [place] [address] Care Team Providers Care Taker Off Drying Kiln Name Role Phone Annalise Carter DO Primary Care Provider [phone] Chuck Mei PA-C Unavailable [phone] Encounter Details Date Type Department Care Team (Late st Contact Info) Description 05/28/2020 Transcribed Document [facility] [place] [address] [place] [address] ProviderLars MD [address] [place] [address] Social History Tobacco Use Types [...] Conversion Note - Lars ProviderMD - 05/28/2020 8:03 PM CDT Patient: ROSARIO GREGG Age: 59 Years Sex: Male : 1960 Subjective DOS: 05/28/20 Feels better. Wants to walk more. Not dyspneic. Vital Signs T: 36.6 ??C TMIN: 36.6 ??C TMAX: 36.9 ??C HR: 80 RR: 16 BP: 117/77 SpO2: 94% HT: 175.26 cm WT: 100.99 kg BMI: 32.88 Oxygen Settings (Last) Oxygen Therapy Mode: Room air (05/28/20 20:44:00) Oxygen Flow Rate: 2 Liter/Min (05/28/20 13:49:00) Intake & Output Totals Last 24 Hours (7a-7a) Input Total: 2 mL Output Total: 0 mL Balance: 2 mL Physical Exam General: no acute distress Neurologic: Awake, alert, and oriented X3, Moves all extremities. Eye: Pupils reactive and equal bilaterally. OP clear. Neck: No carotid bruits, no JVD, no lymphadenopathy Lungs: Clear to auscultation bilaterally. No wheezes. Heart: Regular rate and rhythm. No murmurs. Abdomen: Soft, non-tender, non-distended, normal bowel sounds, no masses Extremities: No edema. Full range of motion where tested. Skin: No rashes or lesions Assessment/Plan Acute hypoxic respiratory failure secondary to COVID pneumonia and pulmonary edema IV Antibiotics completed Steroids continue remdesivir completed Convalescent plasma Clinically improving Requiring less O2 supplementation. COVID Pneumonia: Completed abx Acute Pulmonary edema Improved Steroid induced hyperglycemia - increase SSI Increase activity with PT today. Home when oxygen requirements improve. Assess for home O2. Planning for discharge tomorrow with isolation reccs for another week. VTE Prophylaxis - Medical Enoxaparin 30 mg, SubCutaneous, Inj, [id number], Start 05/27/20 9:00:00 EDT (GIANLUCA CALVO) Ticagrelor 90 mg, Oral, Tab, BID, Routine, Start 05/24/20 9:00:00 EDT (BERKLEY LEONIE) Sequential Compression Device Start: 05/23/20 9:55:00 EDT, [...] PRN Lantus, 30 Units= 0.3 mL, SubCutaneous, [id number] Lasix, 20 mg= 2 mL, IV Push, Daily lisinopril, 5 mg= 1 Tab, Oral, Daily Lopressor, 50 mg= 1 Tab, Oral, BID Lovenox, 30 mg= 0.3 mL, SubCutaneous, [id number] magnesium sulfate, 2 Gram= 50 mL, IV [...] 60 mEq= 3 Tab, Oral, Q2H, PRN sodium phosphate sodium phosphate ticagrelor, 90 mg= 1 Tab, Oral, BID Tylenol, 650 mg= 2 Tab, Oral, Q4H, PRN Zofran, 4 mg= 2 mL, IV Push, Q4H, PRN Lab Results Test Name Test Result Date/Time Sodium Level 138 mmol/L 05/28/2020 06:49 EDT Potassium Level 4.1 mmol/L 05/28/2020 06:49 EDT Chloride Level 109 mmol/L 05/28/2020 06:49 EDT Carbon Dioxide Level 23 mmol/L 05/28/2020 06:49 EDT Anion Gap 10 05/28/2020 06:49 EDT Glucose Level 196 mg/dL (High) 05/28/2020 06:49 EDT Blood Urea Nitrogen 22 mg/dL 05/28/2020 06:49 EDT Creatinine Level 0.80 mg/dL 05/28/2020 06:49 EDT eGFR >60 mL/min/1.73m2 05/28/2020 06:49 EDT eGFR NonAfrican >60 mL/min/1.73m2 05/28/2020 06:49 EDT Bun/Creatinine 27.5 (High) 05/28/2020 06:49 EDT Calcium Level 8.0 mg/dL (Low) 05/28/2020 06:49 EDT Magnesium Level 2.5 mg/dL (High) 05/28/2020 06:49 EDT Device Comment 1 Protocols Followed 05/28/2020 21:57 EDT Device Comment 1 Received Meds 05/28/2020 17:40 EDT Device Comment 1 Protocols Followed 05/28/2020 05:31 EDT Device Comment 2 Received Meds 05/28/2020 21:57 EDT Device Comment 2 Received Meds 05/28/2020 05:31 EDT Glucose POC2 442 mg/dL (High) 05/28/2020 21:57 EDT Glucose POC2 280 mg/dL (High) 05/28/2020 17:40 EDT Glucose POC2 239 mg/dL (High) 05/28/2020 11:43 EDT Glucose POC2 194 mg/dL (High) 05/28/2020 05:31 EDT CRP 0.5 mg/dL 05/28/2020 06:49 EDT Lactate Dehydrogenase 255 Units/Liter (High) 05/28/2020 06:49 EDT CK 57 Units/Liter 05/28/2020 06:49 EDT WBC 10.9 K/uL (High) 05/28/2020 06:49 EDT RBC 4.55 Million/uL 05/28/2020 06:49 EDT Hgb 13.5 g/dL 05/28/2020 06:49 EDT Hct 40.6 % 05/28/2020 06:49 EDT MCV 89.2 fL 05/28/2020 06:49 EDT MCH 29.7 pg 05/28/2020 06:49 EDT MCHC 33.3 Gram/dL 05/28/2020 06:49 EDT Platelet Count 276 K/uL 05/28/2020 06:49 EDT MPV 10.3 fL 05/28/2020 06:49 EDT RDW 12.8 % 05/28/2020 06:49 EDT Neut % 72.8 % (High) 05/28/2020 06:49 EDT Neut # 7.96 K/uL (High) 05/28/2020 06:49 EDT Lymph % 16.8 % (Low) 05/28/2020 06:49 EDT Lymph # 1.84 x10(3)/uL 05/28/2020 06:49 EDT Inyo % 8.2 % 05/28/2020 06:49 EDT Inyo # 0.90 K/uL 05/28/2020 06:49 EDT Eos % 0.3 % 05/28/2020 06:49 EDT Eos # 0.03 x10(3)/uL 05/28/2020 06:49 EDT Baso % 0.3 % 05/28/2020 06:49 EDT Baso # 0.03 x10(3)/uL 05/28/2020 06:49 EDT Slide Review No 05/28/2020 06:49 EDT IG# 0.18 x10(3)/uL (High) 05/28/2020 06:49 EDT IG% 1.60 % (High) 05/28/2020 06:49 EDT D Dimer Quant See Comment 05/28/2020 06:49 EDT Ferritin Level 227.4 ng/mL 05/28/2020 06:49 EDT Electronically signed by Akin, [facility] Conversion Process Validation Engineer Cerner at 12/27/2022 11:55 AM CDT documented in this encounter Plan of Treatment Not on file documented as of this encounter Visit Diagnoses Not on filedocumented in this encounter Additional Health Concerns Infection Onset Date Last Indicated Resolved Time MRSA (C) 06/11/2023 06/11/2023 documented as of this encounter Care Teams Taker Off Drying Kiln Relationship Specialty Start Date End Date Annalise Carter, DO [address] [place] [address] PCP - General Family Medicine 06/06/23 Chuck Mei PA-C [address], [facility] [address] [place] [address] Cardiology 11/01/23 documented as of this encounter
--- OUTSIDE RECORDS SUMMARY | 2025-05-05 12:23 | XMS_ITS | Encounter Summary ---
Author Organization [employer] ([place], [place], [place], [place]) Address [address] [place] [address] Care Team Providers Care Set Key Driver Name Role Phone Annalise Carter DO Primary Care Provider [phone] Chuck Mie PA-C Unavailable [phone] Encounter Details Date Type Department Care Team (Late st Contact Info) Description 05/29/2020 Transcribed Document [facility] [place] [facility] [place] [address] ProviderLars MD [address] [place] [address] Social History Tobacco Use Types [...] Conversion Note - Lars ProviderMD - 05/29/2020 10:15 AM CDT Patient: ROSARIO GREGG Age: 59 Years Sex: Male : 1960 Myself, Repairer Controller Tester and Security met with patient to receive clarification of a comment made to staff which was perceived as threatening by the staff. The patient denied harmful intention alluded to from the comments he had made to staff. Comments made by the patient expressed strong opinions of penalties of some individuals has been handled in the past around our facility and our communities. documented in this encounter Plan of Treatment Not on file documented as of this encounter Visit Diagnoses Not on filedocumented in this encounter Additional Health Concerns Infection Onset Date Last Indicated Resolved Time MRSA (C) 06/11/2023 06/11/2023 documented as of this encounter Care Teams Set Key Driver Relationship Specialty Start Date End Date Annalise Carter, DO [address] [place] [address] PCP - General Family Medicine 06/06/23 Chuck Mei PA-C [address], [facility] [address] [place] [address] Cardiology 11/01/23 documented as of this encounter
--- OUTSIDE RECORDS SUMMARY | 2025-05-05 12:23 | XMS_ITS | Encounter Summary ---
Author Organization [employer] ([place], [place], [place], [place]) Address [address] [place] [address] Care Team Providers Care Pre School Manager Name Role Phone Annalise Carter DO Primary Care Provider [phone] Chuck Mei PA-C Unavailable [phone] Encounter Details Date Type Department Care Team (Late st Contact Info) Description 07/08/2020 Transcribed Document [facility] [place] [address] [place] [address] ProviderLars MD [address] [place] [address] Social History Tobacco Use Types [...] Conversion Note - Lars ProviderMD - 07/08/2020 3:08 PM CDT UM Authorization Entered On: 07/08/2020 15:09 EDT Performed On: 07/08/2020 15:08 EDT by ALEXANDER CALZADA RN Primary Insurance Authorization Authorization and Policy Numbers : Insurance 1 Health Plan: [employer] Policy Number: [id number] Authorization Number: Insurance Primary Name : [employer] Policy Number: [id number] Authorization Status-Primary : Pending Authorized Service Begin Date-Primary : 07/07/2020 EDT Observation Authorization Nbr-Primary : pend ref#[id number] Authorization Comments-Primary : Pending ref no per Availity for Obs status Historical Authorization Comments-Primary : No Authorization Comments Found ALEXANDER CALZADA, RN - 07/08/2020 15:08 EDT Electronically signed by Akin [facility] Conversion Chief Of Anesthesiology Cerner at 12/27/2022 11:57 AM CDT documented in this encounter Plan of Treatment Not on file documented as of this encounter Visit Diagnoses Not on filedocumented in this encounter Additional Health Concerns Infection Onset Date Last Indicated Resolved Time MRSA (C) 06/11/2023 06/11/2023 documented as of this encounter Care Teams Pre School Manager Relationship Specialty Start Date End Date Annalise Carter, DO [address] [facility] [address] [place] [address] PCP - General Family Medicine 06/06/23 Chuck Mei PA-C [address] [facility] [address] [place] [address] Cardiology 11/01/23 documented as of this encounter
--- OUTSIDE RECORDS SUMMARY | 2025-05-05 12:23 | XMS_ITS | Encounter Summary ---
Author Organization [facility] ([place], [place], [place], [place]) Address [address] [place] [address] Care Team Providers Care Java Lead Name Role Phone Annalise Carter DO Primary Care Provider [phone] Chuck Mei PA-C Unavailable [phone] Encounter Details Date Type Department Care Team (Late st Contact Info) Description 07/08/[address] [facility] [place] [address] [place] [address] ProviderLars MD [address] [place] [address] Social History Tobacco Use Types [...] Conversion Note - Lars ProviderMD - 07/08/2020 2:00 AM CDT Excelsior Machine Operator Details Entered On: 07/08/2020 4:38 EDT Performed On: 07/08/2020 4:15 EDT by Nona Finney Lpn Order Details Transport Mode Order Detail : Ambulatory Isolation Precautions Order Detail : Standard Precautions Order Detail : N/A IV Order Detail : 1 Oxygen Order Detail : 0 Lift/Transfer : Independent Central Line Order Detail : No Room Service : Appropriate Arterial Line : No Patient Needs Meds Crushed/Liquid : No Nona Finney Lpn - 07/08/2020 4:38 EDT documented in this encounter Plan of Treatment Not on file documented as of this encounter Visit Diagnoses Not on filedocumented in this encounter Additional Health Concerns Infection Onset Date Last Indicated Resolved Time MRSA (C) 06/11/2023 06/11/2023 documented as of this encounter Care Teams Java Lead Relationship Specialty Start Date End Date Annalise Carter, [address] [facility] [address] [place] [address] PCP - General Family Medicine 06/06/23 Chuck Mei PA-C [address], [facility] [address] [place] [address] Cardiology 11/01/23 documented as of this encounter
--- OUTSIDE RECORDS SUMMARY | 2025-05-05 12:23 | XMS_ITS | Encounter Summary ---
Author Organization [employer] ([place], [place], [place], [place]) Address [address] [place] [address] Care Team Providers Care Occupational Therapy Technician Name Role Phone Annalise Carter DO Primary Care Provider [phone] Chuck Mei PA-C Unavailable [phone] Encounter Details Date Type Department Care Team (Late st Contact Info) Description 05/29/2020 Transcribed Document [facility] [place] [facility] [place] [address] ProviderLars MD [address] [place] [address] Social History Tobacco Use Types [...] Conversion Note - Lars ProviderMD - 05/29/2020 2:30 PM CDT On Going Discharge Planning Entered On: 05/29/2020 14:31 EDT Performed On: 05/29/2020 14:30 EDT by EUGENIA GODFREY, RN-Radio Equipment InstallerRaise Miner Progress Note Discharge Arrangements : Patient Post-Acute Information Patient Name: ROSARIO GREGG Gender: Male : [birth year] Age: 59 Years No Post-Acute Placement(s) Listed No Post-Acute Service(s) Listed No [place] Referral(s) Listed Discharge Options Discussed with Patient : Discharge transportation, DME, Home Health Barriers to Discharge Identified : None identified Barriers to Discharge Unresolved : All resolved Designation of Choice Signed : No Patient Offered Choice/Affiliations Explained : Yes Were Referrals Sent to Post Acute Providers : No Does the Patient have a Floor to SNF Benefit? : No Is the Patient Meeting Medical Necessity : No Did you Document Avoidable Days? : No Physician Agreeable to Move Forward with D/C Plan? : Yes Did you Attend Multidisciplinary Rounds? : No EUGENIA GODFREY, RN-Radio Equipment Installer - 05/29/2020 14:30 EDT Narrative Progress Note Narrative Progress Note : Called pt due to isolation for COVID 19. Discussed discharge needs. Pt denies any discharge needs at this time. Pt stated that his brother will be transporting him at discharge. Spoke with pt's bedside nurse. She stated that pt's brother was hesitant to transport pt and pt did not have any other transportation. Called [facility] and arranged a 5pm time to take pt home. Spoke with bedside nurse again. She stated that pt's brother was bringing a second car so pt could drive himself home. Called and cancelled [facility]. Historical Progress Note : HD 5. Pt continues in isolation for COVID 19. Continues on 2 liters per nasal cannula. Done with Remdesivir. Continues on PO steroids. Discharge plan is home with possible home health and home oxygen. EUGENIA GODFREY, RN-Radio Equipment Installer - 05/28/20 16:16:09 HD 4. Pt remains in isolation for COVID 19. WBC 11.3, O2 at 3 liters. Contniues on Remdesivir IV and Dexamethasone PO. OT/PT evals pending. Discharge plan is short term rehab vs home with home health. EUGENIA GODFREY, RN-Radio Equipment Installer - 05/27/20 16:27:47 MDR 9-15. covid: 19 positive. orders for PT/OT. transfer to . referral to [facility] for rehab. discuss with case management staff. MERLYN HERNANDEZ RN-Radio Equipment Installer - 05/27/20 07:33:43 EUGENIA GODFREY, RN-Radio Equipment Installer - 05/29/2020 14:30 EDT documented in this encounter Plan of Treatment Not on file documented as of this encounter Visit Diagnoses Not on filedocumented in this encounter Additional Health Concerns Infection Onset Date Last Indicated Resolved Time MRSA (C) 06/11/2023 06/11/2023 documented as of this encounter Care Teams Occupational Therapy Technician Relationship Specialty Start Date End Date Annalise Carter, DO [address] [place] [address] PCP - General Family Medicine 06/06/23 Chuck Mei PA-C [address], [facility] [address] [place] [address] Cardiology 11/01/23 documented as of this encounter
--- OUTSIDE RECORDS SUMMARY | 2025-05-05 12:23 | XMS_ITS | Encounter Summary ---
Author Organization [employer] ([place], [place], [place], [place]) Address [address] [place] [address] Care Team Providers Care Civil Drafting Technician Name Role Phone Annalise Carter DO Primary Care Provider [phone] Chuck Mei PA-C Unavailable [phone] Encounter Details Date Type Department Care Team (Late st Contact Info) Description 05/24/2020 Transcribed Document [facility] [place] [address] [place] [address] ProviderLars MD [address] [place] [address] Social History Tobacco Use Types [...] Conversion Note - Historical ProviderMD - 05/24/2020 2:54 PM CDT Patient: ROSARIO GREGG Age: 59 [...] mellitus, BPH, and hypertension presented to [facility] ED on 05/23/2024 worsening shortness of breath and cough for the last week. Tested for COVID-19 on this past Monday at [place], [place] with results back on Monday that [...] at rest. Is awake and conversant. afebrile. Further ROS unobtainable Allergies: Morphine Medications: Medications by Classification Antimicrobials cefTRIAXone - 2 Gram, IV Piggyback, Inj, [id number], infuse over 30 Minute(s), STAT doxycycline - 100 mg, Oral, Cap, BID, Routine Immunology dexamethasone - 6 mg, Oral, Tab, Daily, order duration: 9 Day(s), Routine Anticoagulant enoxaparin (Lovenox) - 40 mg, SubCutaneous, Inj, At Bedtime, Routine Cardiovascular aspirin (Ecotrin) - 81 mg, [...] glargine (Lantus) - 15 Units, SubCutaneous, Inj, BID, Routine insulin lispro (insulin lispro sliding scale) - Scale D:, SubCutaneous, Inj, AC and at Bedtime, Routine Pain Meds aspirin (Ecotrin) - 81 mg, Oral, EC Tab, Daily, Routine *Duplicate* acetaminophen (Tylenol) - 650 mg, Oral, Tab, Q4H, PRN for Pain (Mild 1-3), Routine traMADol - 25 mg, Oral, Tab, Q6H, order duration: 2 Day(s), PRN for Pain (Moderate 4-6), Routine Vitamins potassium chloride (potassium chloride extended release) - 20 mEq, Oral, CR Tab, QID, order duration: 2 Day(s), Routine sodium chloride (Normal Saline Flush) - 10 mL, IV Push, Inj, See Comment, STAT Undefined Medications remdesivir - Inj, IV Piggyback, [id number] for 4 Day(s) ticagrelor - 90 mg, Oral, Tab, BID, Routine PE: Vitals Signs (last 24 hrs) Last Charted Minimum Maximum Temp 98.4 (MAY 24 12:00) 98.4 (MAY 24 12:00) 98.8 (MAY 23 21:15) Apical HR 90 (SEP 13 09:57) 90 (MAY 13 09:57) 90 (MAY 13 09:57) Mon HR 88 (MAY 24 14:00) 74 (MAY 13 03:30) 102 (MAY 12 17:00) Resp Rate H 24 (MAY 24 14:00) L 4 (MAY 24 11:31) H 45 (MAY 12 22:45) SBP 114 (MAY 24 14:00) 105 (MAY 13 03:00) H 147 (MAY 12 17:00) DBP 71 (MAY 24 14:00) L 56 (MAY 24 09:00) 80 (MAY 13 01:00) MAP 88 (MAY 24 14:00) 78 (MAY 13 11:00) 100 (MAY 13 01:00) SpO2 L 91 (MAY 24 14:02) L 83 (MAY 23 22:15) 99 (MAY 24 11:31) I examined the patient from outside the room with direct visualization due to the critical shortage of personal protective equipment in the setting of the COVID19 pandemic Exam: Constitutional: NAD, alert, WD/WN, appears older than stated age, obese. sitting up. conversant HEENT: NC/AT, EOMI, no oral lesions. External ears, eyes, nose, and lip are normal Respiratory: non-labored breathing, on HFNC. no cough appreciated Cardio: Tachycardia per telemetry [...] (SEP 12) Plt 213 (MAY 13) 185 (SEP 12) Na 142 (SEP 13) 142 (SEP 12) K 3.7 (MAY 13) 3.8 (MAY 12) L 2.9 (MAY 12) Cl H 113 (MAY 13) H 115 (SEP 12) CO2 24 (SEP 13) 21 (SEP 12) BUN 22 (MAY 13) 16 (SEP 12) Cr 1.00 (MAY 13) 1.00 (SEP 12) Glu R H 198 (MAY 13) H 140 (MAY 12) Ca L 7.9 (MAY 13) L 7.3 (MAY 12) Lactic 1.0 (MAY 13) 1.5 (MAY 12) PT 10.8 (SEP 12) 10.9 (SEP 12) INR 1.0 (MAY 12) 1.0 (MAY 12) PTT 32.4 (MAY 12) AST 23 (SEP 13) 22 (SEP 12) ALT 27 (MAY 13) 27 (SEP 12) ALK P 67 (MAY 13) 63 (SEP 12) T Bili 0.4 (MAY 13) 0.5 (MAY 12) PTN 7.1 (MAY 13) 6.4 (MAY 12) ALB L 2.7 (MAY 13) L 2.6 (MAY 12) Troponin <0.015 (MAY 13) <0.015 (MAY 12) Creatinine Clearance (Current Encounter/Past 24 Hours) Creatinine Level 1.00 mg/dL 05/24/2020 04:55 Bun/Creatinine 22.0 HI 05/24/2020 04:55 Estimated Creatinine Clearance 77.57 mL/Min 05/23/2020 08:21 Micro: 05/23 blood cultures pending, so far negative 05/23 COVID-19 PCR positive sputum cx contaminated Rad: Radiology Results (Last 48 hours) [id number] -- 05/23/2020 09:33 CR Chest 1 Vw [...] interpreted, and dictated by Eulalio Pena MD Personally reviewed above CXR from today: worse bilateral lower lobe opacities IMPRESSION: - Severe COVID-19 pneumonia with acute hypoxic respiratory failure. Patient meets criteria for dexamethasone, Remdesivir, and convalescent plasma. Less likely coinfection with negative procalcitonin. inflammatory markers slightly better today - Acute hypoxic respiratory failure: rapidly worse on 05/23 - Type 2 diabetes mellitus - Coronary artery disease/stent/CABG - Hypertension RECOMMENDATIONS/PLANS: - Monitor blood cultures, so far negative - legionella antigen pending - Follow CBC, CMP, LDH, Ferritin, D dimer, CRP - doubt coinfection. will stop antibiotics - Continue Lovenox - Dexamethasone 6 mg daily for 10 days until 06/02 or upon discharge - remdesivir daily for 5 days total until 05/28 - s/p 1 unit convalescent plasma on 05/23 - Continue O2 support Complex MDM. Patient is critically ill. I will follow documented in this encounter Plan of Treatment Not on file documented as of this encounter Visit Diagnoses Not on filedocumented in this encounter Additional Health Concerns Infection Onset Date Last Indicated Resolved Time MRSA (C) 06/11/2023 06/11/2023 documented as of this encounter Care Teams Civil Drafting Technician Relationship Specialty Start Date End Date Annalise Carter, [address] [facility] [address] [place] [address] PCP - General Family Medicine 06/06/23 Chuck Mei PA-C [address] [facility] [address] [place] [address] Cardiology 11/01/23 documented as of this encounter
--- OUTSIDE RECORDS SUMMARY | 2025-05-05 12:23 | XMS_ITS | Encounter Summary ---
Author Organization [employer] ([place], [place], [place], [place]) Address [address] [place] [address] Care Team Providers Care Technical Consultant Name Role Phone Annalise Carter DO Primary Care Provider [phone] Chuck Mei PA-C Unavailable [phone] Encounter Details Date Type Department Care Team (Late st Contact Info) Description 05/29/2020 Transcribed Document [facility] [place] [address] [place] [address] ProviderLars MD [address] [place] [address] Social History Tobacco Use Types [...] Conversion Note - Lars ProviderMD - 05/29/2020 2:00 AM CDT Cell Tuber Hand Details Entered On: 05/29/2020 2:17 EDT Performed On: 05/29/2020 2:00 EDT by Perlita Griffin Rn-Traveler Order Details Transport Mode Order Detail : Stretcher/Gurney Isolation Precautions Order Detail : Contact precautions, Droplet precautions Order Detail : N/A IV Order Detail : 1 Oxygen Order Detail : 0 Nurse Collect Order Detail : 0 Lift/Transfer : Moderate assist Central Line Order Detail : No Room Service : Appropriate Arterial Line : No Perlita Griffin Rn-Traveler - 05/29/2020 2:17 EDT Electronically signed by Akin [facility] Conversion Drill Punch Operator Cerner at 12/27/2022 11:59 AM CDT documented in this encounter Plan of Treatment Not on file documented as of this encounter Visit Diagnoses Not on filedocumented in this encounter Additional Health Concerns Infection Onset Date Last Indicated Resolved Time MRSA (C) 06/11/2023 06/11/2023 documented as of this encounter Care Teams Technical Consultant Relationship Specialty Start Date End Date Annalise Carter, [address] [facility] [address] [place] [address] PCP - General Family Medicine 06/06/23 Chuck Mei PA-C [address], [facility] [address] [place] [address] Cardiology 11/01/23 documented as of this encounter
--- OUTSIDE RECORDS SUMMARY | 2025-05-05 12:23 | XMS_ITS | Encounter Summary ---
Author Organization [employer] ([place], [place], [place], [place]) Address [address] [place] [address] Care Team Providers Care Button Breaker Name Role Phone Annalise Catrer DO Primary Care Provider Chuck Mei PA-C Unavailable Encounter Details Date Type Department Care Team (Late st Contact Info) Description 05/28/2020 Transcribed Document [facility] [place] Family Medicine [address] [place] [address] ProviderLars MD [address] [place] [address] Social History Tobacco Use Types [...] Conversion Note - Lars ProviderMD - 05/28/2020 4:00 AM CDT Height and Weight, Routine Entered On: 05/28/2020 5:37 EDT Performed On: 05/28/2020 4:00 EDT by Perlita Griffin Rn-Traveler Height and Weight, Routine Routine Weight Source : Bed scale Routine Weight Entry Format : [place] Routine Weight, Pounds : 222 lb Routine Weight, Ounces : 3 oz Routine Weight Calculation : 100.99 kg Height Source : Stated Height Entry Format : [place] Height, Feet : 5 ft Height, Inches : 9 Inch Clinical Height : 175.26 cm Body Surface Area (BSA), Routine : 2.16 m2 Body Mass Index (BMI), Routine : 32.88 kg/m2 Perlita Griffin Rn-Traveler - 05/28/2020 5:37 EDT documented in this encounter Plan of Treatment Not on file documented as of this encounter Visit Diagnoses Not on filedocumented in this encounter Additional Health Concerns Infection Onset Date Last Indicated Resolved Time 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
--- OUTSIDE RECORDS SUMMARY | 2025-05-05 12:23 | XMS_ITS | Encounter Summary ---
Author Organization [employer] ([place], [place], [place], [place]) Address [address] [place] [address] Care Team Providers Care Range Technician Name Role Phone Annalise Carter DO Primary Care Provider [phone] Chuck Mei PA-C Unavailable [phone] Encounter Details Date Type Department Care Team (Late st Contact Info) Description 07/08/2020 Transcribed Document [facility] [place] Family Medicine [address] [place] [address] ProviderLars MD [address] [place] [address] Social History Tobacco Use Types Packs/Day Years [...] Conversion Note - Lars ProviderMD - 07/08/2020 4:31 AM CDT Spiritual Care Assessment Entered On: 07/08/2020 7:12 EDT Performed On: 07/08/2020 7:10 EDT by PAUL HERRON General Information Referred by : Patient Referral Reason Comment : Living Will referral Ministry Provided to : Patient PAUL HERRON - 07/08/2020 7:11 EDT Interventions Advance Directive Information Provided : No Advance Directive Comment : Declined opportunity Emotional Support : Empathic/Engaged listening, Feelings expressed, Information provided Spiritual and Anabaptism : Spiritual/Anabaptism support provided Change, Adjustment and Loss : End of life discussion/care Ethics, Advocacy and Referral : Care now and/or in the future discussed PAUL HERRON - 07/08/2020 7:11 EDT Outcomes Appreciation Expressed : Yes Information Received and Understood : Yes Thoughts, Feelings and Emotions Exp. 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
--- OUTSIDE RECORDS SUMMARY | 2025-05-05 12:23 | XMS_ITS | Encounter Summary ---
Author Organization [facility] Address [address] [place] [id number] Care Team Providers Care Insurance Follow Up Representative Name Role Phone Annalise Carter DO Primary Care Provider [phone] Reason for Visit * Reason Comments Med Refill Encounter Details Date Type Department Care Team (Late st Contact Info) Description 03/06/2025 Refill [facility] ENDOCRINOLOGY [address] [id number] Rudy Ann MD [address] [place], [place] [address] [id number] Uncontrolled diabetes mellitus with hyperglycemia, with long-term current use of insulin Social History Tobacco Use Types Packs/Day Years Used Date Smoking Tobacco: Former Cigarettes Passive Smoke Exposure: Past Smokeless Tobacco: Never Alcohol Use Standard Drinks/Week Comments Not Currently 0 (1 standard drink = 0.6 oz pur e alcohol) Sex and Gender Information Value Date Recorded Sex Assigned at Not on file Legal Sex Male 12:21 PM EDT Gender Identity Not on file Sexual Orientation Not on file documented as of this encounter Plan of Treatment Not on file documented as of this encounter Visit Diagnoses Diagnosis Uncontrolled diabetes mellitus with hyperglycemia, with long-term current use of insulin documented in this encounter Care Teams Insurance Follow Up Representative Relationship Specialty Start Date End Date Annalise Carter DO [facility] [place] [address] PCP - General Family Medicine 04/04/24 documented as of this encounter
--- OUTSIDE RECORDS SUMMARY | 2025-05-05 12:23 | XMS_ITS | Encounter Summary ---
Author Organization [employer] ([place], [place], [place], [place]) Address [address] [place] [address] Care Team Providers Care Floriculturist Name Role Phone Annalise Carter DO Primary Care Provider [phone] Chuck Mei PA-C Unavailable [phone] Encounter Details Date Type Department Care Team (Late st Contact Info) Description 05/26/2020 Transcribed Document [facility] [place] Family Medicine [facility] [place] [address] ProviderLars MD [address] [place] [address] Social History Tobacco Use Types [...] Conversion Note - Lars ProviderMD - 05/26/2020 8:26 AM CDT UM Authorization Entered On: 05/26/2020 8:26 EDT Performed On: 05/26/2020 8:26 EDT by MERLYN JONES, Engraver [employer] Primary Insurance Authorization Authorization and Policy Numbers : Insurance 1 Health Plan: [employer]US [employer] Policy Number: [id number] Authorization Number: Insurance Primary Name : [employer] GOLD PLUS HMO Policy Number: [id number] Authorization Status-Primary : Notification only Auth/Referral Contact Name-Primary : Luis Felipe R Authorization Number-Primary : [id number] Authorized Service Begin Date-Primary : 05/23/2020 EDT Authorization Comments-Primary : INPT approved per email from Luis Felipe [facility] Historical Authorization Comments-Primary : Comment 1: Pending ref no per availity for 05/23 admit. 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
--- OUTSIDE RECORDS SUMMARY | 2025-05-05 12:23 | XMS_ITS | Encounter Summary ---
Author Organization [employer] ([place], [place], [place], [place]) Address [address] [place] [address] Care Team Providers Care Show Host/Hostess Name Role Phone Annalise Carter DO Primary Care Provider [phone] Chuck Mei PA-C Unavailable [phone] Encounter Details Date Type Department Care Team (Late st Contact Info) Description 07/08/2020 Transcribed Document [facility] Family Medicine [address] [place] [address] ProviderLars MD [address] [place], [place] [address] Social History Tobacco Use Types Packs/Day Years [...] Conversion Note - Lars ProviderMD - 07/08/2020 9:00 AM CDT Consult Phone Call Documentation Entered On: 07/08/2020 9:07 EDT Performed On: 07/08/2020 9:00 EDT by FLO HANNAH Phone Call for Consults Consult Phone Call/Page Attempt : Other: spoke to Gail Consult Reason : PNA Physician Requesting Consult : GERTRUDIS LAZAR MD-FAM Physician Requested for Consult : EDITH ALVAREZ MD-INF Physician Covering for Consult : KIKI CORTÉS MD-INF Date and Time Call Returned : 07/08/2020 9:07 EDT FLO HANNAH - 07/08/2020 9:07 EDT Electronically signed by [facility] Conversion Motor Tune Up Specialist Cerner at 12/27/2022 11:54 AM CDT documented in this encounter Plan of Treatment Not on file documented as of this encounter Visit Diagnoses Not on filedocumented in this encounter Additional Health Concerns Infection Onset Date Last Indicated Resolved Time 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
--- OUTSIDE RECORDS SUMMARY | 2025-05-05 12:23 | XMS_ITS | Encounter Summary ---
Author Organization [employer] ([place], [place], [place], [place]) Address [address] [place] [address] Care Team Providers Care Electrical Subcontractor Name Role Phone Annalise Carter DO Primary Care Provider [phone] Chuck Mei PA-C Unavailable [phone] Encounter Details Date Type Department Care Team (Late st Contact Info) Description 05/28/2020 Transcribed Document [facility] Family Medicine [address] [place] [address] ProviderLars MD [address] [place] [address] Social History Tobacco Use Types [...] Conversion Note - Lars ProviderMD - 05/28/2020 2:00 AM CDT Sheet Metal Pattern Cutter Details Entered On: 05/28/2020 1:45 EDT Performed On: 05/28/2020 2:00 EDT by Perlita Griffin Rn-Traveler Order Details Transport Mode Order Detail : Stretcher/Gurney Isolation Precautions Order Detail : Contact precautions, Droplet precautions Order Detail : N/A IV Order Detail : 1 Oxygen Order Detail : 1 Nurse Collect Order Detail : 0 Lift/Transfer : Moderate assist Central Line Order Detail : No Room Service : Appropriate Arterial Line : No Perlita Griffin Rn-Traveler - 05/28/2020 1:45 EDT Electronically signed by [facility] Conversion Community Health Agent Cerner at 12/27/2022 12:02 PM CDT documented in this encounter Plan of Treatment Not on file documented as of this encounter Visit Diagnoses Not on filedocumented in this encounter Additional Health Concerns Infection Onset Date Last Indicated Resolved Time 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 [address] [place] [address] Cardiology 11/01/23 documented as of this encounter
--- OUTSIDE RECORDS SUMMARY | 2025-05-05 12:23 | XMS_ITS | Encounter Summary ---
Author Organization [employer] ([place], [place], [place], [place]) Address [address] [place] [address] Care Team Providers Care Porcelain Buildup Assistant Name Role Phone Annalise Carter DO Primary Care Provider [phone] Chuck Mei PA-C Unavailable [phone] Encounter Details Date Type Department Care Team (Late st Contact Info) Description 05/24/2020 Transcribed Document [facility] Family Medicine [facility] [place] [address] ProviderLars MD [address] [place] [address] Social History Tobacco Use Types [...] Conversion Note - Lars Jeffries MD - 05/24/2020 10:37 AM CDT UM Authorization Entered On: 05/24/2020 10:38 EDT Performed On: 05/24/2020 10:37 EDT by ALEXANDER CALZADA RN Primary Insurance Authorization Authorization and Policy Numbers : Insurance 1 Health Plan: [employer] Policy Number: [id number] Authorization Number: Insurance Primary Name : [employer]US [employer] Policy Number: [id number] Authorization Status-Primary : Awaiting callback Reference Number-Primary : pend ref #[id number] Authorized Service Begin Date-Primary : 05/23/2020 EDT Authorization Comments-Primary : Pending ref no per availity for 05/23 admit. 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
--- OUTSIDE RECORDS SUMMARY | 2025-05-05 12:23 | XMS_ITS | Encounter Summary ---
Author Organization [employer] ([place], [place], [place], [place]) Address [address] [place] [address] Care Team Providers Care Division Human Resources Manager Name Role Phone Annalise Carter DO Primary Care Provider [phone] Chuck Mei PA-C Unavailable [phone] Encounter Details Date Type Department Care Team (Late st Contact Info) Description 07/08/2020 Transcribed Document [facility] [address] [place] [address] ProviderLars MD [address] [place] [address] Social History Tobacco Use Types [...] Conversion Note - Historical ProviderMD - 07/08/2020 5:00 AM CDT Chart Check - Review Order Profile Entered On: 07/08/2020 4:39 EDT Performed On: 07/08/2020 5:00 EDT by Nona Finney Lpn Chart Check Powerplans Initiated/Discontinued as Appropriate : Yes All Active Orders Reviewed : Yes Nona Finney Lpn - 07/08/2020 4:39 EDT documented in this encounter Plan of Treatment Not on file documented as of this encounter Visit Diagnoses Not on filedocumented in this encounter Additional Health Concerns Infection Onset Date Last Indicated Resolved Time MRSA (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
--- OUTSIDE RECORDS SUMMARY | 2025-05-05 12:23 | XMS_ITS | Encounter Summary ---
Author Organization [employer] ([place], [place], [place], [place]) Address [address] [place] [address] Care Team Providers Care Final Finisher Name Role Phone EmmaAnnalise Bre BENITEZ Primary Care Provider [phone] Chuck Mei PA-C Unavailable [phone] Encounter Details Date Type Department Care Team (Late st Contact Info) Description 05/26/2020 Transcribed Document [facility] Pulm & Critical Care Medicine [address] [place] [address] [place] [id number] Osbaldo Umanzor MD [address] [facility] [address] [place] [id number] Social History Tobacco Use Types Packs/Day Years Used Date Smoking Tobacco: Never Assessed Sex and Gender Information Value Date Recorded Sex Assigned at Male 06/19/2023 4:40 PM CDT Legal Sex Male 1:15 PM CDT Gender Identity Male 06/19/2023 4:40 PM CDT Sexual Orientation Straight 06/19/2023 4: 40 PM CDT documented as of this encounter Miscellaneous Notes * Cerner Conversion Note - Osbaldo Umanzor MD - 05/26/2020 3:59 PM EDT Patient: ROSARIO GREGG Age: 59 years Sex: Male : 1960 Associated Diagnoses: None Author: OSBALDO UMANZOR MD [facility] Pulmonary CCM Progress Note Requesting: Dr. Billings Reason: COVID-19 Basic Information CC: I am breathing better than I was yesterday HPI: 59-year-old male who has past medical history of CAD with stents and CABG, DM, HTN, HLP, Depression, Anxiety, stated sleep apnea, and BPH who tested positive for COVID 19 this past Monday in [place], [place]. He presented to ER with shortness [...] good appetite. Total negative balance is 2531 Intake & Output Totals Last 24 Hours (7a-7a) Intake (16 Events) Medications (509 mL) Oral Intake (2160 mL) Output (9 Events) Johnson Catheter (3550 mL) Urine Voided (Volume) (1650 mL) Input Total: 2669 mL Output Total: 5200 mL Balance: -2531 mL Review of Systems Constitutional: Weakness, Fatigue, No fever, No chills. Eye: No icterus, No visual disturbances. Ear/Nose/Mouth/Throat: loss of taste and smell, No sore throat. Respiratory: Shortness of breath, Cough, Sputum production, mild , No hemoptysis, No wheezing. Cardiovascular: No chest pain. Gastrointestinal: Diarrhea, No nausea, No vomiting. Immunologic: Not immunocompromised. Musculoskeletal: No back pain. Integumentary: No rash, No pruritus. Neurologic: Headache. Psychiatric: No anxiety. Overall feeling better Health Status Allergies: Allergic [...] PRN: Dry Eyes Lantus: 30 Units, SubCutaneous, [id number] Lasix: 20 mg, IV Push, BID Lopressor: 50 mg, Oral, BID Lovenox: 40 mg, SubCutaneous, [id number] Mucinex: 600 mg, Oral, BID Nitrostat: 0.4 [...] (See Comment) remdesivir: 250 mL/Hr, IV Piggyback, [id number] sodium phosphate: 15 mMole, 5 mL, 50 [...] Oral, Daily, 30 Cap, 0 Refill(s), Medications (32) Active Scheduled: (16) #NaCl 0.9% *FLUSH* inj 10 mL 10 [...] mL inj 40 mg 0.4 mL, SubCutaneous, [id number] famotidine 20 mg tab 20 mg 1 Tab, Oral, BID furosemide 20 mg/2 mL inj 20 mg 2 mL, IV Push, BID guaiFENesin 600 mg ER tab 600 mg 1 Tab, Oral, BID insulin glargine 1 unit/0.01 mL inj 30 Units 0.3 mL, SubCutaneous, [id number] insulin lispro 1 unit/0.01 mL inj Scale D:, SubCutaneous, AC and at Bedtime lisinopril 5 mg tab 5 mg 1 Tab, Oral, Daily metoprolol tartrate 50 mg tab 50 mg 1 Tab, Oral, BID mometasone/formoterol 200/5 mcg inh 2 Puff, Inhalation, BID remdesivir , IV Piggyback, [id number] ticagrelor 90 mg tab 90 mg 1 [...] Gram 20 mL, IV Piggyback, Q12H labetalol 20 mg/4 mL inj *SYRINGE* 10 [...] 5 mL, IV Piggyback, Q6H Problem list: Medical CAD - Coronary artery disease / SNOMED CT 1396240852 / Confirmed Diabetes mellitus / SNOMED CT 439685930 / Confirmed History of obstructive sleep apnea / IMO [id number] / Confirmed HLD - Hyperlipidemia / SNOMED CT 886788129 / Confirmed HTN (hypertension) / SNOMED CT [id number] / Confirmed, Active Problems (21) Arthritis CAD [...] hrs) Last Charted Minimum Maximum Temp 98.5 ([facility] [place]:00) 97.8 ([facility] 14 20:00) 98.1 ([facility] 14 16:00) Apical HR 74 ([facility] 08:57) 74 ([facility] 08:57) 78 ([facility] 21:00) Mon HR 72 ([facility] 12:01) 62 ([facility] 06:00) 100 ([facility] 14 21:14) Resp Rate H 33 ([facility] 12:01) L 5 ([facility] 00:19) H 37 ([facility] 14 21:14) SBP 114 ([facility] 12:00) 107 ([facility] 14 17:00) 138 ([facility] 15 09:00) DBP 67 ([facility] 12:00) 61 ([facility] 15 06:00) H 93 ([facility] 02:00) MAP 86 ([facility] 12:00) 78 ([facility] 14 17:00) 106 ([facility] 02:00) SpO2 95 ([facility] 12:01) L 84 ([facility] 22:00) 100 ([facility] 14 20:00) General: Alert and oriented, Mild distress. Eye: Pupils are equal, round and reactive to light, Normal conjunctiva. HENT: Normocephalic, Oral mucosa is moist. Neck: Supple, No jugular venous distention, No lymphadenopathy. Respiratory: Breath sounds are equal, Symmetrical chest wall expansion, No wheezing, Rhonchi noted in the bases and no wheezing. Cardiovascular: Normal rate, Regular rhythm, No edema. Gastrointestinal: Soft, Non-tender, Non-distended, Normal bowel sounds, obese but soft. Genitourinary: No costovertebral angle tenderness. Musculoskeletal: Normal range of motion. Integumentary: Warm, Dry, No rash, Good skin turgor. Neurologic: Alert, Oriented, No focal deficits, Cranial Nerves II-XII are grossly intact. Psychiatric: Cooperative, Appropriate mood & affect. Review / Management Results review: Labs (Last four charted values) WBC H 11.7 (SEP 15) H 11.6 (SEP 14) H 10.6 (SEP 13) 9.5 (SEP 12) HB L 12.0 (SEP 15) L 11.8 (SEP 14) L 12.4 (SEP 13) 13.6 (SEP 12) HCT L 36.7 (SEP 15) L 36.1 (SEP 14) L 37.1 (SEP 13) 41.3 (SEP 12) Plt 246 (SEP 15) 226 (SEP 14) 213 (SEP 13) 185 (SEP 12) Na 137 (SEP 15) 142 (SEP 14) 142 (SEP 13) 142 (SEP 12) K 4.2 (SEP 15) 4.9 (SEP 14) 3.7 (SEP 13) 3.8 (SEP 12) Cl 109 (SEP 15) H 114 (SEP 14) H 113 (SEP 13) H 115 (SEP 12) CO2 23 (SEP 15) 22 (SEP 14) 24 (SEP 13) 21 (SEP 12) BUN H 28 (SEP 15) H 28 (SEP 14) 22 (SEP 13) 16 (SEP 12) Cr 0.90 (SEP 15) 1.00 (SEP 14) 1.00 (SEP 13) 1.00 (SEP 12) Glu R H 271 (SEP 15) H 176 (SEP 14) H 198 (SEP 13) H 140 (SEP 12) Ca L 7.8 (SEP 15) 8.4 (SEP 14) L 7.9 (SEP 13) L 7.3 (SEP 12) Lactic 1.0 [...] (MAY 14) 0.4 (MAY 13) 0.5 (MAY 23) PTN 7.1 (MAY 25) 7.1 (MAY 24) 6.4 (MAY 23) ALB L 2.7 (MAY 25) L 2.7 (MAY 24) L 2.6 (MAY 23) Troponin <0.015 (MAY 24) <0.015 (MAY 23) . MAY 26 03:52 137 109 H 28 / H 271 4.2 23 0.90 \ Blood Gases (Current Encounter/Past 24 Hours) pH Art 7.44 05/26/2020 06:35 pCO2 Art 33.9 LOW 05/26/2020 08:20 pO2 Art 71.5 LOW 05/26/2020 08:21 HCO3 Art 23.1 05/26/2020 06:35 BE Art -.5 05/26/2020 06:35 sO2 Art 95.5 05/26/2020 06:35 tHb Art 12.5 05/26/2020 06:35 FHHb 4.4 NA 05/26/2020 06:35 ctO2 16.6 NA 05/26/2020 06:35 FIO2 Art 60 NA 05/26/2020 06:35 Delivery Device Type Art OptiFlow NA 05/26/2020 06:35 Temperature, F Art 98.6 NA 05/26/2020 06:35 Art Blood Gas (ABG) Site Right Radial 05/26/2020 06:35 Acceptable Lincoln's Test Art Acceptable NA 05/26/2020 06:35 Ventilator Mode Art N/A NA 05/26/2020 06:35 Oxygen Flow Rate Art 40.0 NA 05/26/2020 06:35 ABG Num of Draw Attempts 1 05/26/2020 06:35 Radiology Results (Last 48 hours) [id number] -- 05/23/2020 09:33 CR Chest 1 Vw [...] agree with the above final transcribed report. Chest x-ray 05/26/2020 reviewed and visualized and patient has bilateral perihilar and bibasilar opacities with no change compared to previous x-ray done on 05/25 Impression: Normal sized left ventricle. Moderate left ventricular hypertrophy. Visually estimated ejection fraction 55% +/- 5%. Normal systolic function. Normal left ventricular diastolic function. Mild left atrial enlargement. Dilated right ventricle. No masses or thrombi. RVSP 17 COVID-19 negative 05/24 sputum cultures pending Blood cultures times two 05/23 is pending Ferritin 418 slightly increased Impression and Plan Pulm and CCM Attending Note: I have performed personally face to face diagnostic evaluation of this patient, I reviewed Labs as well as Radiology data and Medications, I discussed with allied staff patient???s condition and discussed findings, I formulated above diagnoses/impression and plan . I also discussed my impression and plan for the day with patient???s nurse Patient requires a high complexity of decision making for assessment. Overall my opinion and recommendations are: Patient remained in critical care condition due to acute hypoxemic respiratory failure with COVID-19 pneumonia and bilateral patchy infiltrates. Patient remain on OptiFlow. Acute Hypoxic Respiratory Failure: slowly improving COVID-19 Pneumonia Diffuse airspace and interstitial infiltrates ; no change Small bilateral pleural effusions Sleep Apnea not treated Previous smoker Cardiac: Negative troponin Normal BNP H/O CAD with CABG and stents ID: COVID -19 pneumonia Renal: Hypokalemia; resolved stable goal Negative balance/euvolemia Endo: DM glycemic control, Lantus 30 units twice daily and sliding scale VTE prophylaxis Lovenox 30 BID SQ GI prophylaxis change Protonix to Pepcid PLAN: Oxygen supplementation to keep sat 92-96% Alternate Optiflow with BiPAP when required Patient is currently on 40 L/min / 60% OptiFlow Combivent one puff QID adjusted 2 puffs QID IS ECHO noted COVID -19 order set Mucinex 600 mg po BID Cardiology following Lasix 20 mg IV changed to daily Fluid restriction at 1500 mm Replace Phos Anbx: ID following appreciate DR Tan input Ashlie/Amira BC 05/23 pending Dexamethasone per ID 6 mg IV daily until 06/02 Remdesivir started on May 23 until 05/28 S/P Convalescence plasma per ID on 05/23 \No need for daily chest x-rays\ GI prophylaxis: Pepcid DVT prophylaxis: Lovenox 30 mg subcu every 12 Glycemic control: SSI / Lantus increased to 30 units twice daily FULL CODE Prognosis: Guarded Disposition May transfer to telemetry/[facility]-19/isolation. Pulmonary will follow on floor thanks lucio Level 3 documented in this encounter Plan of Treatment Not on file documented as of this encounter Visit Diagnoses Not on filedocumented in this encounter Additional Health Concerns Infection Onset Date Last Indicated Resolved Time MRSA (C) 06/11/2023 06/11/2023 documented as of this encounter Care Teams Final Finisher Relationship Specialty Start Date End Date Annalise Carter, [address] [facility] [address] [place] [address] PCP - General Family Medicine 06/06/23 Chuck Mei PA-C [address], [facility] [address] [place] [address] Cardiology 11/01/23 documented as of this encounter
--- OUTSIDE RECORDS SUMMARY | 2025-05-05 12:24 | XMS_ITS | Encounter Summary ---
Author Organization [employer] ([place], [place], [place], [place]) Address [address] [place] [address] Care Team Providers Care Chronometer Tester Name Role Phone Annalise Carter DO Primary Care Provider [phone] Chuck Mei PA-C Unavailable [phone] Encounter Details Date Type Department Care Team (Late st Contact Info) Description 07/07/2020 Transcribed Document [facility] [place] [address] [place] [address] ProviderLars MD [address] [place], [place] [id number] Social History Tobacco Use Types Packs/Day Years [...] Cerner Conversion Note - Historical ProviderMD - 07/07/2020 7:48 PM CDT ED Event Note Entered On: 07/07/2020 19:48 EDT Performed On: 07/07/2020 19:48 EDT by GEOVANY SINGLETON ED Event Note ED Event Date/Time : 07/07/2020 19:48 EDT ED Description of Event : Vivek BRAVO with pulmonary at bedside. GEOVANY SINGLETON - 07/07/2020 19:48 EDT documented in this encounter Plan of Treatment Not on file documented as of this encounter Visit Diagnoses Not on filedocumented in this encounter Additional Health Concerns Infection Onset Date Last Indicated Resolved Time MRSA (C) 06/11/2023 06/11/2023 documented as of this encounter Care Teams Chronometer Tester Relationship Specialty Start Date End Date Annalise Carter DO [address] [facility] [address] [place] [address] PCP - General Family Medicine 06/06/23 Chuck Mei PA-C [address], [facility] [address] [place] [address] Cardiology 11/01/23 documented as of this encounter
--- OUTSIDE RECORDS SUMMARY | 2025-05-05 12:24 | XMS_ITS | Encounter Summary ---
Author Organization [employer] ([place], [place], [place], [place]) Address [address] [place] [address] Care Team Providers Care Petroleum Engineer Name Role Phone Annalise Carter DO Primary Care Provider [phone] Chuck Mei PA-C Unavailable [phone] Encounter Details Date Type Department Care Team (Late st Contact Info) Description 05/25/2020 Transcribed Document [facility] [place] Family Medicine [facility] [place] [address] ProviderLars MD [address] [place] [address] Social History Tobacco Use Types [...] Cerner Conversion Note - Lars ProviderMD - 05/25/2020 2:05 AM CDT Spiritual Care Short Form Entered On: 05/25/2020 4:45 EDT Performed On: 05/25/2020 2:05 EDT by REUBEN CURTIS Chaplain General Information, Spiritual Care Spiritual Care Referred by : initiated Reason for Visit : Initial Ministry Provided to : Patient, Other: [place] (RN) Intervention/Comment/Summary Points : Pt. is COVID pos. Chap. prayed with RN o/s pt. Focus: pt. concerns about his mother who recently went to the hospital with a fever. Chap. prayed accord. with RN who was preparing to enter pt. room. RN will share with pt. prayer/content. REUBEN CURTIS Chaplain - 05/25/2020 4:43 EDT documented in this encounter Plan of Treatment Not on file documented as of this encounter Visit Diagnoses Not on filedocumented in this encounter Additional Health Concerns Infection Onset Date Last Indicated Resolved Time MRSA (C) 06/11/2023 06/11/2023 documented as of this encounter Care Teams Petroleum Engineer Relationship Specialty Start Date End Date Annalise Carter, DO [address] [place] [address] PCP - General Family Medicine 06/06/23 Chuck Mei PA-C [address] [facility] [address] [place] [address] Cardiology 11/01/23 documented as of this encounter
--- OUTSIDE RECORDS SUMMARY | 2025-05-05 12:24 | XMS_ITS | Encounter Summary ---
Author Organization [email or web address] ([place], [place], [place], [place]) Address [address] [place] [address] Care Team Providers Care Dispute Coordinator Name Role Phone Annalise Carter DO Primary Care Provider [phone] Chuck Mei PA-C Unavailable [phone] Encounter Details Date Type Department Care Team (Late st Contact Info) Description 07/07/[address] [facility] [place] Family Medicine [address] [place] [address] ProvideraLrs MD [address] [place] [address] Social History Tobacco Use Types [...] Conversion Note - Lars ProviderMD - 07/07/2020 2:14 PM CDT Broset Violence Assessment Entered On: 07/07/2020 14:44 EDT Performed On: 07/07/2020 14:43 EDT by Zoraida Townsend RN Broset Violence Assessment Broset Violence Checklist of Symptoms : None Broset Violence Symptoms Subtotal : 0 Broset Violence Symptoms Indicator : Low risk (0) Broset Interventions : [place] precautions for safety used Zoraida Townsend RN - 07/07/2020 14:43 EDT documented in this encounter Plan of Treatment Not on file documented as of this encounter Visit Diagnoses Not on filedocumented in this encounter Additional Health Concerns Infection Onset Date Last Indicated Resolved Time MRSA (C) 06/11/2023 06/11/2023 documented as of this encounter Care Teams Dispute Coordinator Relationship Specialty Start Date End Date Annalise Carter, DO [address] [place] [address] PCP - General Family Medicine 06/06/23 Chuck Mei PA-C [address], [facility] [address] [place] [address] Cardiology 11/01/23 documented as of this encounter
--- OUTSIDE RECORDS SUMMARY | 2025-05-05 12:24 | XMS_ITS | Encounter Summary ---
Author Organization [employer] ([place], [place], [place], [place]) Address [address] [place] [address] Care Team Providers Care Museum Security Chief Name Role Phone Annalise Carter DO Primary Care Provider [phone] Chuck Mei PA-C Unavailable [phone] Encounter Details Date Type Department Care Team (Late st Contact Info) Description 07/07/2020 Transcribed Document [facility] [place] [address] [place] [address] ProviderLars MD [address] [place] [address] Social History Tobacco Use Types [...] Lars ProviderMD - 07/07/2020 2:14 PM CDT ED Assessment Entered On: 07/07/2020 14:44 EDT Performed On: 07/07/2020 14:43 EDT by Zoraida Townsend RN ED Quick Look Assessment Level of Consciousness : Alert, Awake Affect/Behavior : Appropriate, Calm, Cooperative Orientation : Oriented x 4 Skin Temperature : Warm Zoraida Townsend RN - 07/07/2020 14:43 EDT ED General-Functional Assess Information Obtained From : Patient Preferred Communication Mode : Verbal Communication Barrier : None Primary Language : [place] Any Spiritual/Cultural Needs or Requests : No Currently in Unsafe Situation : No Zoraida Townsend RN - 07/07/2020 14:43 EDT Social Habits Smoking Status : Former smoker, quit more than 30 days ago Smokeless Tobacco Status : Never Desires Tobacco Cessation Calc : 0 Zoraida Townsend RN - 07/07/2020 14:43 EDT Social History (As Of: 07/07/2020 14:44:25 EDT) Tobacco: Smoking Status Former smoker. Last Used: Quit 6 years ago. (Last Updated: 11/17/2016 12:34:45 EST by JAKE AHMADI, CICI) Alcohol: Alcohol Use History Yes. Date/Time of Last Drink: a little wine or beer 3 times a yr. Alcohol Use Frequency Rarely. (Last Updated: 11/17/2016 22:00:13 EST by COSNTANTIN BLACKBURN, CICI) Substance Abuse: Drug Use Hx: No. Use in Last 12 Months: No. (Last Updated: 11/17/2016 22:00:23 EST by CONSTANTIN BLACKBURN, CICI) Cardiovascular ASMT, ED Cardiovascular Assessment WDL : WDL Zoraida Townsend RN - 07/07/2020 14:43 EDT Respiratory Respiratory Assessment WDL : WDL with exceptions (Comment: pt states he was just admitted here for covid. has been discharged for about a month but has a persistent cough. He states he was taking medication for that but today he began having hemoptysis. [Zoraida Townsend RN - 07/07/2020 14:45 EDT] ) Zoraida Townsend RN - 07/07/2020 14:45 EDT Cough : Barking, Congested, Productive Sputum Amount : Moderate Sputum Color : Bloody Zoraida Townsend RN - 07/07/2020 14:43 EDT documented in this encounter Plan of Treatment Not on file documented as of this encounter Visit Diagnoses Not on filedocumented in this encounter Additional Health Concerns Infection Onset Date Last Indicated Resolved Time MRSA (C) 06/11/2023 06/11/2023 documented as of this encounter Care Teams Museum Security Chief Relationship Specialty Start Date End Date Annalise Carter, [address] [id number] PCP - General Family Medicine 06/06/23 Chuck Mei PA-C [address], [facility] [address] [place] [address] Cardiology 11/01/23 documented as of this encounter
--- OUTSIDE RECORDS SUMMARY | 2025-05-05 12:24 | XMS_ITS | Encounter Summary ---
Author Organization [employer] ([place], [place], [place], [place]) Address [address] [place] [address] Care Team Providers Care Boiler Fitter Name Role Phone EmmaAnnalise Bre BENITEZ Primary Care Provider [phone] Chuck Mei PA-C Unavailable [phone] Encounter Details Date Type Department Care Team (Late st Contact Info) Description 05/25/2020 Transcribed Document [facility] Pulm & Critical Care Medicine [address] [place] [address] [place] [id number] Osbaldo Umanzor MD [address] [facility] [address] [place] [id number] Social History Tobacco Use Types Packs/Day Years [...] Conversion Note - Osbaldo Umanzor MD - 05/25/2020 6:08 PM EDT Patient: ROSARIO GREGG Age: 59 years Sex: Male : 1960 Associated Diagnoses: None Author: OSBALDO UMANZOR MD [facility] Pulmonary CCM Progress Note Requesting: Dr. Billings Reason: COVID-19 Basic Information CC: I am breathing better than I was yesterday HPI: 59-year-old male who has past medical history of CAD with stents and CABG, DM, HTN, HLP, Depression, Anxiety, stated sleep apnea, and BPH who tested positive for COVID 19 this past Monday in [place], [place]. He presented to ER with shortness [...] was increased to 15 U twice daily Intake & Output Totals Last 24 Hours (7a-7a) Intake (10 Events) Medications (302 mL) Oral Intake (1160 mL) Output (4 Events) Johnson Catheter (1000 mL) Urine Voided (Volume) (850 mL) Input Total: 1462 mL Output Total: 1850 mL Balance: -388 mL Review of Systems Constitutional: Weakness, Fatigue, [...] No pruritus. Neurologic: Headache. Psychiatric: No anxiety. Health Status [...] mg, Oral, BID Lovenox: 40 mg, SubCutaneous, [id number] Mucinex: 600 mg, Oral, BID Nitrostat: 0.4 [...] PRN: Hypertension lisinopril: 5 mg, Oral, Daily remdesivir: 250 mL/Hr, IV Piggyback, [id number] ticagrelor: 90 mg, Oral, BID Prescriptions Prescribed [...] Oral, Daily, 30 Cap, 0 Refill(s), Medications (22) Active Scheduled: (16) #NaCl 0.9% *FLUSH* inj [...] mL inj 40 mg 0.4 mL, SubCutaneous, [id number] famotidine 20 mg tab 20 mg 1 [...] Puff, Inhalation, BID remdesivir , IV Piggyback, [id number] ticagrelor 90 mg tab 90 mg 1 [...] 4 mg 2 mL, IV Push, Q4H Problem list: Medical CAD - Coronary artery disease / SNOMED CT 9875422586 / Confirmed Diabetes mellitus / SNOMED CT 603490284 / Confirmed History of obstructive sleep apnea / IMO [id number] / Confirmed HLD - Hyperlipidemia / SNOMED CT 642772552 / Confirmed HTN (hypertension) / SNOMED CT [id number] / Confirmed, Active Problems (21) Arthritis CAD [...] 24 hrs) Last Charted Minimum Maximum Temp 98.3 (MAY 14 12:00) 98.3 (MAY 14 12:00) 98.6 (MAY 24 21:00) Apical HR 81 (MAY 14 08:33) 81 (MAY 14 08:33) 85 (MAY 13 21:11) Mon HR 78 (MAY 25 15:33) 71 (MAY 14 05:17) 98 (MAY 24 18:00) Resp Rate L 9 (MAY 25 15:33) L 6 (MAY 14 09:00) H 46 (MAY 14 00:39) SBP 111 (MAY 25 15:00) 94 (MAY 14 11:00) 133 (MAY 24 21:00) DBP 62 (MAY 14 15:00) L 59 (MAY 25 11:00) 77 (MAY 14 06:00) MAP 81 (MAY 25 15:00) 72 (MAY 14 11:00) 99 (MAY 24 18:00) SpO2 95 (MAY 25 15:33) L 91 (MAY 24 21:15) 98 (MAY 14 14:00) General: Alert and oriented, Mild distress. Eye: Pupils are equal, round and reactive to light, Normal conjunctiva. HENT: Normocephalic. Neck: Supple, No jugular venous distention, No lymphadenopathy. Respiratory: Breath sounds are equal, Symmetrical chest wall expansion, No wheezing, Positive for expiratory rhonchi especially in the bases. Cardiovascular: Normal rate, Regular rhythm, No edema. Gastrointestinal: Soft, Non-tender, Non-distended, Normal bowel sounds, obese but soft. Genitourinary: No costovertebral angle tenderness. Musculoskeletal: Normal range of motion. Integumentary: Warm, Dry, No rash. Neurologic: Alert, Oriented, No focal deficits, Cranial Nerves II-XII are grossly intact. Psychiatric: Cooperative, Appropriate mood & affect. Review / Management Results review: Labs (Last four charted values) WBC H 11.6 (MAY 14) H 10.6 (MAY 13) 9.5 (MAY 12) HB L 11.8 (MAY 14) L 12.4 (MAY 13) 13.6 (MAY 12) HCT L 36.1 (MAY 14) L 37.1 (MAY 13) 41.3 (MAY 12) Plt 226 (SEP 14) 213 (SEP 13) 185 (SEP 12) Na 142 (SEP 14) 142 (SEP 13) 142 (MAY 12) K 4.9 (SEP 14) 3.7 (SEP 13) 3.8 (MAY 12) L 2.9 (MAY 12) Cl H 114 (SEP 14) H 113 (SEP 13) H 115 (MAY 12) CO2 22 (MAY 14) 24 (MAY 13) 21 (MAY 12) BUN H 28 (MAY 14) 22 (MAY 13) 16 (MAY 12) Cr 1.00 (MAY 14) 1.00 (MAY 13) 1.00 (MAY 12) Glu R H 176 (MAY 14) H 198 (MAY 13) H 140 (MAY 12) Ca 8.4 (MAY 14) L 7.9 (MAY 13) L 7.3 (MAY 12) Lactic 1.0 (MAY 13) 1.5 (MAY 12) PT 10.8 (MAY 12) 10.9 (MAY 12) INR 1.0 (MAY 12) 1.0 (MAY 12) PTT 32.4 (MAY 12) AST 21 (SEP 14) 23 (SEP 13) 22 (MAY 12) ALT 25 (MAY 14) 27 (SEP 13) 27 (MAY 12) ALK P 67 (MAY 14) 67 (MAY 13) 63 (MAY 12) T Bili 0.3 (MAY 14) 0.4 (MAY 13) 0.5 (MAY 12) PTN 7.1 (MAY 14) 7.1 (MAY 13) 6.4 (MAY 12) ALB L 2.7 (MAY 14) L 2.7 (MAY 13) L 2.6 (MAY 12) Troponin <0.015 (MAY 13) <0.015 (MAY 12) . No qualifying data available Blood Gases (Current Encounter/Past 24 Hours) pH Art 7.44 05/25/2020 07:01 pCO2 Art 32.3 LOW 05/25/2020 07:32 pO2 Art 63.5 LOW 05/25/2020 07:32 HCO3 Art 22.1 05/25/2020 07:01 BE Art -1.3 05/25/2020 07:01 sO2 Art 93.3 LOW 05/25/2020 07:32 tHb Art 12.7 05/25/2020 07:01 FHHb 6.6 NA 05/25/2020 07:01 ctO2 16.4 NA 05/25/2020 07:01 FIO2 Art 70 NA 05/25/2020 07:01 Delivery Device Type Art OptiFlow NA 05/25/2020 07:01 Temperature, F Art 98.6 NA 05/25/2020 07:01 Art Blood Gas (ABG) Site Right Radial 05/25/2020 07:01 Acceptable Lincoln's Test Art Acceptable NA 05/25/2020 07:01 Ventilator Mode Art N/A NA 05/25/2020 07:01 Oxygen Flow Rate Art 45.0 NA 05/25/2020 07:01 ABG Num of Draw Attempts 1 NA 05/25/2020 07:01 Radiology Results (Last 48 hours) [id number] -- 05/23/2020 09:33 CR Chest 1 Vw Portable (05/24/2020 10:20) [...] interpreted, and dictated by Eulalio Pena MD CR Chest 1 Vw Portable (05/25/2020 05:46) [...] interpreted, and dictated by Ryan Robles MD Chest x-ray 05/25 patient has bilateral patchy lower lobe infiltrate consistent with pneumonia. Cardiomegaly. Reviewed and visualized Impression: Normal sized left ventricle. Moderate left [...] Negative balance/euvolemia Endo: DM glycemic control, Lantus 15 units twice daily and sliding scale VTE prophylaxis Lovenox 40 BID SQ GI prophylaxis change Protonix to Pepcid PLAN: Oxygen supplementation to keep sat 92-96% Alternate Optiflow with BiPAP when required Combivent one puff QID adjusted 2 puffs QID IS ECHO noted COVID -19 order set Mucinex 600 mg po BID Cardiology following Lasix 20 mg IV BID Replace Phos Anbx: ID following appreciate DR Dominick Dailey/Amira GARCÍA pending Dexamethasone per ID 6 mg IV daily until 06/02 Remdesivir started on May 23 until 05/28 S/P Convalescence plasma per ID on 05/23 GI prophylaxis: Pepcid DVT prophylaxis: Lovenox Glycemic control: SSI / Lantus FULL CODE Prognosis: Guarded ICU thanks lucio CCT 31 mins documented in this encounter Plan of Treatment Not on file documented as of this encounter Visit Diagnoses Not on filedocumented in this encounter Additional Health Concerns Infection Onset Date Last Indicated Resolved Time MRSA (C) 06/11/2023 06/11/2023 documented as of this encounter Care Teams Boiler Fitter Relationship Specialty Start Date End Date Annalise Carter DO [address] [facility] [address] [place] [address] PCP - General Family Medicine 06/06/23 Chuck Mei PA-C [address], [facility] [address] [place] [address] Cardiology 11/01/23 documented as of this encounter
--- OUTSIDE RECORDS SUMMARY | 2025-05-05 12:24 | XMS_ITS | Encounter Summary ---
Author Organization [employer] ([place], [place], [place], [place]) Address [address] [place] [address] Care Team Providers Care Nurse Midwife/Clinical Instructor Name Role Phone Annalise Carter DO Primary Care Provider Chuck Mei PA-C Unavailable [phone] Encounter Details Date Type Department Care Team (Late st Contact Info) Description 05/25/2020 Transcribed Document [facility] [address] [place] [address] ProviderLars MD [address] [place] [address] Social History Tobacco Use Types [...] Conversion Note - Lars ProviderMD - 05/25/2020 10:25 AM CDT Initial Discharge Planning Entered On: 05/25/2020 10:35 EDT Performed On: 05/25/2020 10:25 EDT by MERLYN HERNANDEZ, RN-[employer] Senior Officer Initial Assessment I Previously Documented Living Environment : No qualifying data available. Living Situation : Home Patient Lives With : Parent(s) Emergency Contact #1 : Gigi Gergg Emergency Contact #1 Emergency Contact #1 Relationship : son Emergency Contact #2 : Mariana Gregg Emergency Contact #2 Emergency Contact #2 Relationship : mother Enter Doctors Name : Annalise Carter MD Does Patient have PCP Listed? : Yes Medical Durable Power of Youth Pastor Name : no Legal Guardian : No Is Guardianship Needed : No MERLYN HERNANDEZ, RN-[employer] Senior Officer - 05/25/2020 10:25 EDT Initial Assessment II Sensory and Motor Deficits : Weakness Current Home Treatments and Equipment : Bedside commode, Cane, Shower chair, Walker Does the Patient have a Floor to SNF Benefit? : Yes MERLYN HERNANDEZ, RN-[employer] Senior Officer - 05/25/2020 10:25 EDT Discharge Needs I Anticipated Discharge Date : 05/28/2020 EDT Anticipated Discharge To, CM : Home with home health, Rehabilitation Unit, long-term facility Current Home Treatment/Equipment : Current Home Treatment/Equipment No qualifying data available. Post Acute/Home Treatments : Bedside commode, Cane, Shower chair, Walker Documentation Status Complete : Yes MERLYN HERNANDEZ RN-[employer] Senior Officer - 05/25/2020 10:25 EDT Discharge Needs II Professional Skilled Services : Professional Skilled Services No qualifying data available. Needs Assistance with Transportation : Maybe Discharge Options Discussed with Patient : Acute rehabilitation, Home Health, terminal block assembler rehabilitation, alf MERLYN HERNANDEZ RN-[employer] Senior Officer - 05/25/2020 10:25 EDT Narrative Note Narrative Note : readmit risk: moderate 51. ED admit. acute hypoxic resp failure. covid pneumonia. pulmonary edema. covid 19: positive. reported drawn 9-6. positive 9-8. optiflow 50%/70L. decadron po. remdesivir iv. covalescent plasma. spoke in isolation. spoke with son, Gigi, by phone. [phone]. pt resides in [facility] with mom, Mariana. he is adl independent. drives. has mentioned equipment. no hh or rehab stays. dc planning based on progress. rehab vs home health. pt is . no poa/hcs. 4 children. 3: Evelin Mott [place] reported to estranged. do not know phone numbers nor where they live. referral to contractor general building for living will: hcs. spoke with luiz Messina rN. MERLYN HERNANDEZ, RN-[employer] Senior Officer - 05/25/2020 10:25 EDT Electronically signed by [facility] Conversion Reinforced Ironworker Cerner at 12/27/2022 11:50 AM CDT documented in this encounter Plan of Treatment Not on file documented as of this encounter Visit Diagnoses Not on filedocumented in this encounter Additional Health Concerns Infection Onset Date Last Indicated Resolved Time MRSA (C) 06/11/2023 06/11/2023 documented as of this encounter Care Teams Nurse Midwife/Clinical Instructor Relationship Specialty Start Date End Date Annalise Carter, [address] [facility] [address] [place] [address] PCP - General Family Medicine 06/06/23 Chuck Mei PA-C [address], [facility] [address] [place] [address] Cardiology 11/01/23 documented as of this encounter
--- OUTSIDE RECORDS SUMMARY | 2025-05-05 12:24 | XMS_ITS | Encounter Summary ---
Author Organization [employer] ([place], [place], [place], [place]) Address [address] [place] [address] Care Team Providers Care Frontload Driver Name Role Phone Annalise Carter DO Primary Care Provider [phone] Chuck Mei PA-C Unavailable [phone] Encounter Details Date Type Department Care Team (Late st Contact Info) Description 05/25/2020 Transcribed Document [facility] [place] Family Medicine [address] [place] [address] ProviderLars MD [address] [place] [address] Social History Tobacco Use Types [...] Cerner Conversion Note - Historical ProviderMD - 05/25/2020 1:40 PM CDT Patient: ROSARIO GREGG Age: 59 [...] diabetes mellitus, BPH, and hypertension presented to [facility] ED on 05/23/2024 worsening shortness of breath and cough for the last week. Tested for COVID-19 on this past Monday at [place], [place] with results back on Monday that [...] to converse without becoming short of breath. ROS: afebrile, hemodynamically stable, no diarrhea, no rashes. NO BIMAL. Allergies: Morphine Medications: Medications by Classification Immunology [...] PRN for Pain (Moderate 4-6), Routine Vitamins sodium chloride (Normal Saline Flush) - 10 mL, IV Push, Inj, See Comment, STAT Undefined Medications remdesivir - Inj, IV Piggyback, [id number] for 4 Day(s) ticagrelor - 90 mg, Oral, Tab, BID, Routine PE: Vitals Signs (last 24 hrs) Last Charted Minimum Maximum Temp 98.3 (MAY 25 12:00) 98.3 (SEP 14 12:00) 98.2 (MAY 13 16:00) Apical HR 81 (MAY 14 08:33) 81 (MAY 14 08:33) 85 (MAY 13 21:11) Mon HR 80 (MAY 14 13:00) 71 (MAY 14 05:17) 98 (MAY 13 18:00) Resp Rate 20 (MAY 14 13:00) L 6 (MAY 14 09:00) H 46 (MAY 14 00:39) SBP 115 (MAY 25 13:00) 94 (MAY 14 11:00) 133 (MAY 13 21:00) DBP 60 (MAY 14 13:00) L 59 (MAY 14 11:00) 77 (MAY 14 06:00) MAP 81 (MAY 25 13:00) 72 (MAY 14 11:00) 99 (MAY 24 18:00) SpO2 95 (MAY 25 13:00) L 88 (MAY 24 14:00) 97 (MAY 24 19:00) I examined the patient from outside the [...] (MAY 13) 41.3 (MAY 12) Plt 226 (MAY 14) 213 (MAY 13) 185 (MAY 12) Na 142 (MAY 14) 142 (MAY 13) 142 (MAY 12) K 4.9 (MAY 14) 3.7 (MAY 13) 3.8 (MAY 12) L 2.9 (MAY 12) Cl H 114 (MAY 14) H 113 (SEP 13) H 115 (SEP 12) CO2 22 (SEP 14) 24 (SEP 13) 21 (SEP 12) BUN H 28 (SEP 14) 22 (SEP 13) 16 (SEP 12) Cr 1.00 (SEP 14) 1.00 (SEP 13) 1.00 (SEP 12) Glu R H 176 (SEP 14) H 198 (SEP 13) H 140 (SEP 12) Ca 8.4 (SEP 14) L 7.9 (SEP 13) L 7.3 (SEP 12) Lactic 1.0 (SEP 13) 1.5 (SEP 12) PT 10.8 (SEP 12) 10.9 (SEP 12) INR 1.0 (MAY 12) 1.0 (MAY 12) PTT 32.4 (SEP 12) AST 21 (SEP 14) 23 (MAY 13) 22 (MAY 12) ALT 25 (MAY 14) 27 (SEP 13) 27 (MAY 12) ALK P 67 (MAY 14) 67 (MAY 13) 63 (SEP 12) T Bili 0.3 (MAY 14) 0.4 (MAY 13) 0.5 (MAY 12) PTN 7.1 (MAY 14) 7.1 (SEP 13) 6.4 (SEP 12) ALB L 2.7 (MAY 14) L 2.7 (MAY 13) L 2.6 (MAY 12) Troponin <0.015 (MAY 13) <0.015 (MAY 12) Creatinine Clearance (Current Encounter/Past 24 Hours) Creatinine Level 1.00 mg/dL 05/25/2020 03:22 Bun/Creatinine 28.0 HI 05/25/2020 03:29 Micro: 05/23 blood cultures pending, so far negative 05/23 COVID-19 PCR positive sputum cx contaminated Rad: Radiology Results (Last 48 hours) [id number] -- 05/23/2020 09:33 CR Chest 1 Vw [...] recommended .Images reviewed, interpreted, and dictated by MD IZABELA Ragland Chest 1 Vw Portable (05/25/2020 05:46) Result: [...] interpreted, and dictated by Ryan Robles MD Personally reviewed above CXR from today: ongoing bilateral lower lobe opacities, stable IMPRESSION: - Severe COVID-19 pneumonia with acute hypoxic respiratory failure. Patient meets criteria for dexamethasone, Remdesivir, and convalescent plasma. Less likely coinfection with negative procalcitonin. inflammatory markers slightly better, off antibiotics - Acute hypoxic respiratory failure: rapidly worse on 05/23. now stable - Type 2 diabetes mellitus - Coronary [...] MDM. Patient is critically ill. Will follow Kiki Cortés MD saw and examined patient, verified findings, reviewed labs and radiographic data, formulated diagnosis, plan for treatment, and all medical decision making. Micah Stout PA-C for Dr. Kiki Cortés I have edited this note to reflect my history, exam, assessment and plan. documented in this encounter Plan of Treatment Not on file documented as of this encounter Visit Diagnoses Not on filedocumented in this encounter Additional Health Concerns Infection Onset Date Last Indicated Resolved Time MRSA (C) 06/11/2023 06/11/2023 documented as of this encounter Care Teams Frontload Driver Relationship Specialty Start Date End Date Annalise Carter, [address] [facility] [address] [place] [address] PCP - General Family Medicine 06/06/23 Chuck Mei PA-C [address], [facility] [address] [place] [address] Cardiology 11/01/23 documented as of this encounter
--- OUTSIDE RECORDS SUMMARY | 2025-05-05 12:24 | XMS_ITS | Encounter Summary ---
Author Organization [employer] ([place], [place], [place], [place]) Address [address] [place] [address] Care Team Providers Care Caustic Operator Name Role Phone Annalise Carter DO Primary Care Provider [phone] Chuck Mei PA-C Unavailable [phone] Encounter Details Date Type Department Care Team (Late st Contact Info) Description 07/08/2020 Transcribed Document [facility] Family Medicine [address] [place] [address] ProviderLars MD [address] [place] [address] Social History Tobacco Use Types Packs/Day Years [...] Conversion Note - Lars ProviderMD - 07/08/2020 2:01 PM CDT Initial Discharge Planning Entered On: 07/08/2020 14:08 EDT Performed On: 07/08/2020 14:01 EDT by AKILA MAE, [employer]-Radio Program Checker Initial Assessment I Previously Documented Living Environment : No qualifying data available. Living Situation : Home Patient Lives With : Parent(s) Is the Patient a Caregiver at Home? : Yes For Whom are they a Caregiver? : Family member(s) Emergency Contact #1 : Camacho Gregg Emergency Contact #1 Emergency Contact #1 Relationship : brother Emergency Contact #2 : Gigi Gregg Emergency Contact #2 Emergency Contact #2 Relationship : son Enter Doctors Name : Annalise Carter Does Patient have PCP Listed? : Yes Medical Durable Power of Systems Architecture Analyst Name : no Legal Guardian : No Is Guardianship Needed : No AKILA MAE RN-Radio Program Checker - 07/08/2020 14:01 EDT Initial Assessment II Sensory and Motor Deficits : Weakness Current Home Treatments and Equipment : Bedside commode, Cane, Shower chair, Walker Does the Patient have a Floor to SNF Benefit? : No AKILA MAE RN-Radio Program Checker - 07/08/2020 14:01 EDT Discharge Needs I Anticipated Discharge Date : 07/09/2020 EDT Anticipated Discharge To, CM : Home independently Current Home Treatment/Equipment : Current Home Treatment/Equipment No qualifying data available. Post Acute/Home Treatments : None Documentation Status Complete : Yes AKILA MAE RN-Radio Program Checker - 07/08/2020 14:01 EDT Discharge Needs II Professional Skilled Services : Professional Skilled Services No qualifying data available. Needs Assistance with Transportation : No Discharge Options Discussed with Patient : Discharge transportation, DME, Home Health AKILA MAE RN-Radio Program Checker - 07/08/2020 14:01 EDT Narrative Note Narrative Note : Admitted thru emergency dept after coughing up blood at home. Admission of 05-23-2020 to 05-29-2020 for + COVID 19. Discharged to home and states continued to cough, became more dyspneic and had fever. PLOF independent and caregiver for his mother. Lives in [place], [place] - PCP is Annalise Carter. States did see following last admission. Does not have oxygen, or home health. Has DME, does not use. Is currently on oral antibx, observation status. RA stat is 91%. RRS of 61; Dx of hemoptysis. Pt states has not had any since admission. Anticipated discharge tomorrow to home with PCP f/u. Pt states drove self here and plans to drive self home. CM to continue to follow. AKILA MAE RN-Radio Program Checker - 07/08/2020 14:01 EDT documented in this encounter Plan of Treatment Not on file documented as of this encounter Visit Diagnoses Not on filedocumented in this encounter Additional Health Concerns Infection Onset Date Last Indicated Resolved Time MRSA (C) 06/11/2023 06/11/2023 documented as of this encounter Care Teams Caustic Operator Relationship Specialty Start Date End Date Annalise Carter, DO [address] [facility] [address] [place] [address] PCP - General Family Medicine 06/06/23 Chuck Mei PA-C [address], [facility] [address] [place] [address] Cardiology 11/01/23 documented as of this encounter
--- OUTSIDE RECORDS SUMMARY | 2025-05-05 12:24 | XMS_ITS | Encounter Summary ---
Author Organization [employer] ([place], [place], [place], [place]) Address [address] [place] [address] Care Team Providers Care Brine Well Operator Name Role Phone Annalise Carter DO Primary Care Provider [phone] Chuck Mei PA-C Unavailable [phone] Encounter Details Date Type Department Care Team (Late st Contact Info) Description 07/07/2020 Transcribed Document [facility] [place] [address] [place] [address] ProviderLars MD [address] [place] [address] Social History Tobacco Use Types [...] Conversion Note - Lars ProviderMD - 07/07/2020 2:55 PM CDT Patient: ROSARIO GREGG Age: 59 years Sex: Male : 1960 Associated Diagnoses: Hemoptysis Author: COLUMBA PARRA MD-EMR Basic Information Time seen: Date 07/07/2020, Immediately upon arrival. History source: Patient. Arrival mode: Private vehicle, walking. History limitation: None. Additional information: Chief Complaint from Nursing Triage Note : Chief Complaint 07/07/2020 14:19 EDT Chief Complaint pt from home with c/o bloody hemoptysis. States he sees about a tablespoon of bright red blood with each cough. Just started about 40 minutes ago. HX michelle, was here in ICU discharged about a month ago. . History of Present Illness The patient presents with cough. The onset was 6 weeks ago. The course/duration of symptoms is worsening. Character productive: bloody. The degree at onset was minimal. The degree at present is moderate. The exacerbating factor is none. The relieving factor is none. Risk factors consist of diabetes mellitus, hypertension and coronary artery disease. Prior episodes: none. Associated symptoms: none. With recent admission here approximately 1 month ago for COVID-19 infection. Reports he has had a persistent cough since then. Reports just prior to arrival he had an episode of kaleigh hemoptysis where he coughed up a small amount of bright red blood. Has had 5 episodes since then where he is coughed up bright red blood. He is currently on Brilinta and is concerned that he may have a blood clot in his lung.. Review of Systems Constitutional symptoms: Negative except as documented in HPI. Skin symptoms: Negative except as documented in HPI. Eye symptoms: Negative except as documented in HPI. ENMT symptoms: Negative except as documented in HPI. Respiratory symptoms: Cough, Sputum production: Bloody. Cardiovascular symptoms: Negative except as documented in HPI. Gastrointestinal symptoms: Negative except as documented in HPI. Genitourinary symptoms: Negative except as documented in HPI. Musculoskeletal symptoms: Negative except as documented in HPI. Neurologic symptoms: Negative except as documented in HPI. Psychiatric symptoms: Negative except as documented in HPI. Endocrine symptoms: Negative except as documented in HPI. Hematologic/Lymphatic symptoms: Negative except as documented in HPI. Allergy/immunologic symptoms: Negative except as documented in HPI. Additional review of systems information: All other systems reviewed and otherwise negative. Health Status Allergies: Allergic Reactions (Selected) Severity Not Documented Morphine- No reactions were documented.. Medications: (Selected) Prescriptions Prescribed Brilinta (ticagrelor) 90 mg oral tablet: 1 Tab, Oral, BID, 60 Tab, 11 Refill(s) HumaLOG 100 units/mL injectable solution: 10 Units, SubCutaneous, TID With Meals, 10 mL, 0 Refill(s) Insulin Syringes for Humalog Administration: 1 Each, Miscellaneous, See Comment, Use to inject humalog three times a day before meals. #90 and No refills., 1 Each, 0 Refill(s) Lopressor 50 mg oral tablet: 1 Tab, Oral, BID, 60 Tab, 3 Refill(s) famotidine 20 mg oral tablet: 1 Tab, Oral, BID, 60 Tab, 0 Refill(s) Documented Medications Documented Aspirin Low Dose: 81 mg, Oral, Daily, 0 Refill(s) Jardiance 10 mg oral tablet: 1 Tab, Oral, QAM, 0 Refill(s) Lantus: 75 Units, SubCutaneous, Daily, 0 Refill(s) Singulair 10 mg oral tablet: 1 Tab, Oral, At Bedtime, 0 Refill(s) Trulicity Pen: 0.25 mg, SubCutaneous, Weekly, 0 Refill(s) atorvastatin 40 mg oral tablet: 1 Tab, Oral, Daily, 30 Tab, 0 Refill(s) diclofenac sodium 75 mg oral delayed release tablet: 1 Tab, Oral, BID, 180 Tab, 0 Refill(s) furosemide 40 mg oral tablet: 1 Tab, Oral, Daily, 30 Tab, 0 Refill(s) lisinopril 5 mg oral tablet: 1 Tab, Oral, Daily, 30 Tab, 0 Refill(s) tamsulosin 0.4 mg oral capsule: 1 Cap, Oral, Daily, 30 Cap, 0 Refill(s). Past Medical/ Family/ Social History Surgical history: cabg.. Family history: Dementia Father Mother . Social history: Social & Psychosocial Habits Alcohol 11/17/2016 Alcohol Use History, Social Habits Yes Date/Time of Last Drink a little wine or beer 3 times a yr Alcohol Use Frequency Rarely Substance Abuse 11/17/2016 Recreational Drug Use History No Recreational Drug Use Last 12 Months No Tobacco 11/17/2016 Smoking Status Former smoker Month Tobacco Last Used Quit 6 years ago . Problem list: Active Problems (21) Arthritis CAD - Coronary artery disease Cataract Chronic anxiety Chronic depression Coronary artery disease Diabetes mellitus Diabetes mellitus type II Disorder of prostate Glaucoma Hard of hearing Heart valve History of obstructive sleep apnea HLD - Hyperlipidemia HTN (hypertension) Hyperlipidemia Hypertension Pneumonia Renal calculus Sleep apnea Stented coronary artery . Physical Examination Vital Signs Vital Signs/Vital Measures 07/07/2020 14:19 EDT Blood Pressure Location Arm, right upper Blood Pressure Source Non-Invasive BP Device Systolic Blood Pressure 113 mmHg Diastolic Blood Pressure 61 mmHg Temperature Source Temporal artery scanning Temperature Mode Fahrenheit Temperature, Fahrenheit 98.0 Deg F Clinical Temperature, C 36.7 Deg C Peripheral Pulse Rate 98 bpm Respiratory Rate 20 Breaths/Min Oxygen Saturation 93 % LOW Oxygen Therapy Mode Room air . Measurements 07/07/2020 14:19 EDT Height Source Stated Height Entry Format Carney Height/Length, INDONESIAN (ft) 5 ft Height/Length INDONESIAN 8 Inch CLINICALHEIGHT 172.72 cm [place] Body Weight 67.45 kg Weight Source, ED Critical estimated dosing weight Weight Entry Format Carney Weight Qatari lb 204 lb CLINICALWEIGHT 92.73 kg Body Surface Area (BSA) 2.06 m2 Body Mass Index 31.1 kg/m2 HI . Oxygen Saturation 07/07/2020 14:19 EDT Oxygen Saturation 93 % LOW . General: Alert, no acute distress. Skin: Warm, dry, pink, intact. Head: Normocephalic, atraumatic. Neck: Supple, trachea midline, no tenderness, no JVD, no carotid bruit. Cardiovascular: Regular rate and rhythm, No murmur, Normal peripheral perfusion, No edema. Respiratory: Lungs are clear to auscultation, respirations are non-labored, breath sounds are equal, Symmetrical chest wall expansion. Chest wall: No tenderness, No deformity. Gastrointestinal: Soft, Nontender, Non distended, Normal bowel sounds, No organomegaly. Neurological: Alert and oriented to person, place, time, and situation, No focal neurological deficit observed. Lymphatics: No lymphadenopathy. Psychiatric: Cooperative. Medical Decision Making Differential Diagnosis:: Bronchitis, pneumonia. Differential Diagnosis:: Hemoptysis, bronchitis, pneumonia. Documents reviewed: Emergency department nurses' notes. Electrocardiogram: Time 07/07/2020 15:04:00, rate 101, The Rhythm is sinus tachycardia. , The Brandon is normal. , T wave No changes, Ectopy None, P wave and NH interval WNL, QT interval WNL, QRS interval WNL, Interpretation by Emergency Physician Interpreted by me contemporaneously with care. Results review: Lab results : Lab Results 07/07/2020 16:22 EDT Novel Coronavirus 2019 Negative 07/07/2020 14:48 EDT Sodium Level 140 mmol/L Potassium Level 3.5 mmol/L Chloride Level 108 mmol/L Carbon Dioxide Level 26 mmol/L Anion Gap 10 Glucose Level 187 mg/dL HI Blood Urea Nitrogen 10 mg/dL Creatinine Level 1.00 mg/dL eGFR >60 mL/min/1.73m2 eGFR NonAfrican >60 mL/min/1.73m2 Bun/Creatinine 9.1 Calcium Level 8.9 mg/dL Protein Total 7.6 Gram/dL Albumin Level 3.2 Gram/dL LOW Globulin 4.4 Gram/dL A/G Ratio 0.7 LOW Bilirubin Total 0.4 mg/dL Alk Phos 109 Units/Liter AST 18 Units/Liter ALT 27 Units/Liter Troponin I Ultra <0.015 ng/mL WBC 7.1 K/uL RBC 4.41 Million/uL Hgb 12.7 g/dL LOW Hct 39.4 % LOW MCV 89.3 fL MCH 28.8 pg MCHC 32.2 Gram/dL Platelet Count 341 K/uL MPV 9.6 fL RDW 13.7 % Neut % 66.7 % Neut # 4.71 K/uL Lymph % 19.2 % LOW Lymph # 1.36 x10(3)/uL [place] % 9.6 % HI [place] # 0.68 K/uL Eos % 3.7 % Eos # 0.26 x10(3)/uL Baso % 0.4 % Baso # 0.03 x10(3)/uL Slide Review No IG# 0.03 x10(3)/uL IG% 0.40 % PT 10.5 Second(s) INR 1.0 PTT 32.0 Second(s) . Radiology results: Radiology Results (Last 48 hours) [id number] -- 07/07/2020 14:14 CTA Chest PE Protocol (07/07/2020 16:00) Result: [...] Groundglass opacity favoring mild pulmonary edema. . Reexamination/ Reevaluation Time: 07/07/2020 18:22:00 . Notes: Hemodynamically stable, not hypoxic and no further episodes of hemoptysis noted here. Spoke with pulmonary, recommend observation.. Impression and Plan Diagnosis Hemoptysis - Discharge, Medical Plan Condition: Stable. Disposition: Admit Admit/Transfer/Discharge: Place in Observation (Order): Start: 07/07/2020 18:23 EDT, Observation Reason: hemoptysis, Unit type: Med-Surg with telemetry, Admitting: PAUL TURCIOS DO. Counseled: Patient, Regarding diagnosis, Regarding diagnostic results, Regarding treatment plan, Regarding prescription, Patient indicated understanding of instructions. Electronically signed by Brittni Gerardo Conversion Director Speech And Hearing Cerner at 12/27/2022 12:09 PM CDT documented in this encounter Plan of Treatment Not on file documented as of this encounter Visit Diagnoses Not on filedocumented in this encounter Additional Health Concerns Infection Onset Date Last Indicated Resolved Time MRSA (C) 06/11/2023 06/11/2023 documented as of this encounter Care Teams Brine Well Operator Relationship Specialty Start Date End Date Annalise Carter DO [address] [facility] [address] [place] [address] PCP - General Family Medicine 06/06/23 Chuck Mei PA-C [address] [place] [address] Cardiology 11/01/23 documented as of this encounter
--- OUTSIDE RECORDS SUMMARY | 2025-05-05 12:24 | XMS_ITS | Encounter Summary ---
Author Organization [email or web address] ([place], [place], [place], [place]) Address [address] [place] [address] Care Team Providers Care Director Of Government Sales Name Role Phone Annalise Carter DO Primary Care Provider [phone] Chuck Mei PA-C Unavailable [phone] Encounter Details Date Type Department Care Team (Late st Contact Info) Description 05/25/2020 Transcribed Document [facility] [place] [facility] [place] [address] ProviderLars MD [address] [place] [address] Social History Tobacco Use Types [...] Conversion Note - Lars ProviderMD - 05/25/2020 10:36 AM CDT Spiritual Care Assessment Entered On: 05/25/2020 20:13 EDT Performed On: 05/25/2020 10:36 EDT by TOYIN LUIS Chaplain General Information Initial Visit : Yes Referral Reason Comment : order for routine chief bank examiner visit. Ministry Provided to : Patient TOYIN LUIS Chaplain - 05/25/2020 20:12 EDT Spiritual Assessment Spiritual Assessment Comment/Summary Points : attempted to call patient's room x2 to provide supportive conversation. Visiting restrictions currently in place. will continue to follow. Spirital Assessment Comment/Summary Report : SPIRITUAL ASSESSMENT COMMENT/SUMMARY No qualifying data available. TOYIN LUIS Chaplain - 05/25/2020 20:12 EDT documented in this encounter Plan of Treatment Not on file documented as of this encounter Visit Diagnoses Not on filedocumented in this encounter Additional Health Concerns Infection Onset Date Last Indicated Resolved Time MRSA (C) 06/11/2023 06/11/2023 documented as of this encounter Care Teams Director Of Government Sales Relationship Specialty Start Date End Date Annalise Carter, DO [address] [place] [address] PCP - General Family Medicine 06/06/23 Chuck Mei PA-C [address], [facility] [address] [place] [address] Cardiology 11/01/23 documented as of this encounter
--- OUTSIDE RECORDS SUMMARY | 2025-05-05 12:24 | XMS_ITS ---
Author Organization [facility] Care Team Providers Care Corporate Communications Specialist Name Role Phone AnderMicahet Unavailable Unavailable DARWIN JOHNSON Unavailable Unavailable Isela Garcia Unavailable Unavailab Madison Marshall Unavailable Unavailable Allergies and adverse reactions Code CodeSystem Substance Reaction Severity StartDate Concern Status 7052 RXNORM Morphine Edema of larynx (code- 65081207, SNOMED CT) Severe 06/22/2023 active Care Team Name Role Address Phone Organization Dates DARWIN JOHNSON PCP [address] [facility] [address], [address] (Office): : [facility] 06/22/2023 - 07/10/2023 Mandie Worthington [address] [facility] [address], [address] (Office): : : [facility] 06/22/2023 - 07/10/2023 Isela Garcia [address] [facility] [address], [address] (Office): : : [facility] 06/22/2023 - 07/10/2023 Madison Schmidt [address] [facility] [address], [place], [address], [place] (Office): : : [facility] 06/22/2023 - 07/10/2023 Immunizations Immunization Status Vaccine Details Vaccine Code CodeSystem Date Notes Influenza completed Influenza, split virus, trivalent, injectable, contains preservative 141 CVX created date: 3 administe red date: 3 administered outside of facility TB 2 Step Mantoux Skin Test completed tuberculin skin test; purified protein derivative solution, intradermal Given 0.1 ml Left Forearm intradermally Step 2 of Multi-step with next step required 96 CVX created date: 3 consent date: 3 administe red date: 3 TB 2 Step Mantoux Skin Test completed tuberculin skin test; purified protein derivative solution, intradermal Given 0.1 ml Left Forearm intradermally Step 1 of Multi-step with next step required 96 CVX created date: 3 consent date: 3 administe red date: 3 Pneumovax completed pneumococcal vaccine, unspecified formulation 109 CVX created date: 3 administe red date: 0 administered outside of facility SARS-COV-2 (COVID-19) completed SARS-COV-2 (COVID-19) vaccine, mRNA, spike protein, LNP, preservative free, 30 mcg/0.3mL dose Step 2 of Multi-step with next step required 208 CVX created date: 3 administe red date: 1 SARS-COV-2 (COVID-19) completed SARS-COV-2 (COVID-19) vaccine, mRNA, spike protein, LNP, preservative free, 30 mcg/0.3mL dose Step 1 of Multi-step with next step required 208 CVX created date: 3 administe red date: 1 Mental Status Section Date Assessment Total Score Description 07/10/2023 BIMS 15 cognitively int act CAM 0 No delirium ind icated PHQ-9 00 06/29/2023 BIMS 15 cognitively int act CAM 0 No delirium ind icated PHQ-9 10 moderate depres paul Problems Problem # Description Date of onset Resolved Date Code CodeSystem Concern Status 1 ACQUIRED ABSENCE OF RIGHT GREAT TOE 06/22/[address] active 2 ATHEROSCLEROTIC HEART DISEASE OF [place] CORONARY ARTERY WITHOUT ANGINA PECTORIS 06/22/[address] active 3 BENIGN PROSTATIC HYPERPLASIA WITH LOWER URINARY TRACT SYMPTOMS 06/22/[address] active 4 DIFFICULTY IN WALKING, NOT ELSEWHERE CLASSIFIED 06/22/[address] active 5 ENCOUNTER FOR ORTHOPEDIC AFTERCARE FOLLOWING SURGICAL AMPUTATION 06/22/[address] active 6 ESSENTIAL (PRIMARY) HYPERTENSION 06/22/[address] active 7 GASTRO-ESOPHAGEAL REFLUX DISEASE WITHOUT ESOPHAGITIS 06/22/[address] active 8 HYPERLIPIDEMIA, UNSPECIFIED 06/22/[address] active 9 MUSCLE WEAKNESS (GENERALIZED) 06/22/[address] active 10 OTHER ACUTE OSTEOMYELITIS, RIGHT ANKLE AND FOOT 06/22/[address] active 11 OTHER LACK OF COORDINATION 06/22/[address] active 12 TYPE 2 DIABETES MELLITUS WITH UNSPECIFIED COMPLICATIONS 06/22/[address] active Reason for Referral No Reasons for Referral Entered Social History Social History Observation Description Start Date End Date Code Code System Current Smoking Status Tobacco smoking consumption unknown 471074819 SNOMED CT Sex Assigned At Male 1960 80458-7 [facility] Gender Identity Male 88582186906926 [address] Vital Signs Code Code System Vitals Name Values and Units Timing Information 2339-0 [facility] Blood Sugar Gmkuk=336.0 Units=mg/dL 07/10/2023 8462-4 [facility] Blood Pressure-Diastolic Value=73 Un its=mmHg 07/10/2023 8480-6 [facility] Blood Pressure-Systolic Cqvgj=913 Un its=mmHg 07/10/2023 8867-4 [facility] Heart rate Value=80.0 Units=/min 05991-4 [facility] Pain Level Value=0.0 07/10/2023 8310-[facility] Body Temperature Value=98.0 Units= F 07/07/2023 60911-1 [facility] O2 % BldC Oximetry Value=98.0 Units= % 07/07/2023 92221-8 [facility] Weight Wslny=590.0 Units=Lbs 9279-1 [facility] Respiratory Rate Value=14.0 Units=/m in 06/29/2023 8302-2 [facility] Height Value=65.7 Units=Inches 06/22/2023
--- OUTSIDE RECORDS SUMMARY | 2025-05-05 12:24 | XMS_ITS | Encounter Summary ---
Author Organization [employer] ([place], [place], [place], [place]) Address [address] [place] [address] Care Team Providers Care Vehicle Dynamics Engineer Name Role Phone Annalise Carter DO Primary Care Provider [phone] Chuck Mei PA-C Unavailable [phone] Encounter Details Date Type Department Care Team (Late st Contact Info) Description 07/07/2020 Transcribed Document [facility] [place] [address] [place] [address] ProviderLars MD [address] [place] [address] Social History Tobacco Use Types [...] Conversion Note - Lars ProviderMD - 07/07/2020 5:21 PM CDT Vital Signs ED Entered On: 07/07/2020 17:22 EDT Performed On: 07/07/2020 17:21 EDT by Johana Parson Emergency Room Carroting Machine Operator Vital Signs ED Temperature Mode : Fahrenheit Oxygen Therapy Mode : Room air Peripheral Pulse Rate : 89 bpm Respiratory Rate : 16 Breaths/Min Blood Pressure Location : Arm, right upper Systolic Blood Pressure : 123 mmHg Diastolic Blood Pressure : 66 mmHg Oxygen Saturation : 96 % Johana Parson Emergency Room Carroting Machine Operator - 07/07/2020 17:21 EDT documented in this encounter Plan of Treatment Not on file documented as of this encounter Visit Diagnoses Not on filedocumented in this encounter Additional Health Concerns Infection Onset Date Last Indicated Resolved Time MRSA (C) 06/11/2023 06/11/2023 documented as of this encounter Care Teams Vehicle Dynamics Engineer Relationship Specialty Start Date End Date Annalise Carter, [address] [facility] [address] [place] [address] PCP - General Family Medicine 06/06/23 Chuck Mei PA-C [address], [facility] [address] [place] [address] Cardiology 11/01/23 documented as of this encounter
--- OUTSIDE RECORDS SUMMARY | 2025-05-05 12:24 | XMS_ITS | Encounter Summary ---
Author Organization [employer] ([place], [place], [place], [place]) Address [address] [place] [address] Care Team Providers Care Fountain Vending Mechanic Name Role Phone Annalise Carter DO Primary Care Provider [phone] Chuck Mei PA-C Unavailable [phone] Encounter Details Date Type Department Care Team (Late st Contact Info) Description 07/08/2020 Transcribed Document [facility] [place] Family Medicine [address] [place] [address] ProviderLars MD [address] [place], [place] [id number] Social History Tobacco Use Types Packs/Day Years [...] Conversion Note - Historical ProviderMD - 07/08/2020 7:10 AM CDT Advance Directive Entered On: 07/08/2020 7:13 EDT Performed On: 07/08/2020 7:10 EDT by PAUL HERRON Advance Directive Patient has Advance Directive *Q : No, patient refuses Advance Directive information Advance Directive Comment : Declined opportunity PAUL HERRON - 07/08/2020 7:13 EDT documented in this encounter Plan of Treatment Not on file documented as of this encounter Visit Diagnoses Not on filedocumented in this encounter Additional Health Concerns Infection Onset Date Last Indicated Resolved Time MRSA (C) 06/11/2023 06/11/2023 documented as of this encounter Care Teams Fountain Vending Mechanic Relationship Specialty Start Date End Date Annalise Carter, DO [address] [facility] [address] [place] [address] PCP - General Family Medicine 06/06/23 Chuck Mei PA-C [address], [facility] [address] [place] [address] Cardiology 11/01/23 documented as of this encounter
--- OUTSIDE RECORDS SUMMARY | 2025-05-05 12:24 | XMS_ITS | Encounter Summary ---
Author Organization [employer] ([place], [place], [place], [place]) Address [address] [place] [address] Care Team Providers Care Matrix Worker Name Role Phone Annalise Carter DO Primary Care Provider Chuck Mei PA-C Unavailable [phone] Encounter Details Date Type Department Care Team (Late st Contact Info) Description 07/07/2020 Transcribed Document [facility] [place] Medicine [address] [place] [address] ProviderLars MD [address] [place], [place] [id number] Social History Tobacco Use Types Packs/Day Years [...] Conversion Note - Lars ProviderMD - 07/07/2020 9:53 PM CDT Consult Phone Call Documentation Entered On: 07/07/2020 21:53 EDT Performed On: 07/07/2020 21:53 EDT by DILAN BEYER, CICI Phone Call for Consults Provider Team Notified Name : Pulmonary medicine Consult, Additional Information : Vivek BRAVO saw pt in ER DILAN BEYER, CICI - 07/07/2020 21:53 EDT documented in this encounter Plan of Treatment Not on file documented as of this encounter Visit Diagnoses Not on filedocumented in this encounter Additional Health Concerns Infection Onset Date Last Indicated Resolved Time MRSA (C) 06/11/2023 06/11/2023 documented as of this encounter Care Teams Matrix Worker Relationship Specialty Start Date End Date Annalise Carter, [address] [facility] [address] [place] [address] PCP - General Family Medicine 06/06/23 Chuck Mei PA-C [address], [address] [place] [address] Cardiology 11/01/23 documented as of this encounter
--- OUTSIDE RECORDS SUMMARY | 2025-05-05 12:24 | XMS_ITS | Encounter Summary ---
Author Organization [employer] ([place], [place], [place], [place]) Address [address] [place] [address] Care Team Providers Care Crm Specialist Name Role Phone Annalise Carter DO Primary Care Provider [phone] Chuck Mei PA-C Unavailable [phone] Encounter Details Date Type Department Care Team (Late st Contact Info) Description 05/28/2020 Transcribed Document [facility] [place] [address] [place] [address] ProviderLars MD [address] [place] [address] Social History Tobacco Use Types [...] Conversion Note - Lars ProviderMD - 05/28/2020 5:00 AM CDT Chart Check - Review Order Profile Entered On: 05/28/2020 4:48 EDT Performed On: 05/28/2020 5:00 EDT by Perlita Griffin Rn-Travelgiovani Chart Check Powerplans Initiated/Discontinued as Appropriate : Yes All Active Orders Reviewed : Yes Perlita Griffin Rn-Traveler - 05/28/2020 4:48 EDT Electronically signed by Brittni Gerardo Conversion Canal Lock Tender Chief Operator Mari at 12/27/2022 11:53 AM CDT documented in this encounter Plan of Treatment Not on file documented as of this encounter Visit Diagnoses Not on filedocumented in this encounter Additional Health Concerns Infection Onset Date Last Indicated Resolved Time MRSA (C) 06/11/2023 06/11/2023 documented as of this encounter Care Teams Crm Specialist Relationship Specialty Start Date End Date Annalise Carter, [address] [facility] [address] [place] [address] PCP - General Family Medicine 06/06/23 Chuck Mei PA-C [address], [address] [place] [address] Cardiology 11/01/23 documented as of this encounter
--- OUTSIDE RECORDS SUMMARY | 2025-05-05 12:24 | XMS_ITS | Clinical Summary ---
Author Organization [employer] ([place], [place], [place], [place]) Address [address] [place] [address] Care Team Providers Care Mba Intern Name Role Phone Annalise Carter DO Primary Care Provider [phone] Chuck Mei PA-C Unavailable [phone] Allergies Active Allergy Reactions Criticality Noted Date Comments Morphine Anaphylaxis High 11/16/2022 Medications metoprolol tartrate (LOPRESSOR) 50 MG tablet Take 1 tablet (50 mg total) by mouth 2 (two) times daily. 3 Active montelukast (SINGULAIR) 10 mg tablet Take 1 tablet (10 mg total) by mouth nightly. 3 Active lisinopriL (PRINIVIL,ZEST RIL) 5 MG tablet Take 1 tablet (5 mg total) by mouth daily. 3 Active famotidine (PEPCID) 20 MG tablet Take 1 tablet (20 mg total) by mouth daily. 3 Active tamsulosin (FLOMAX) 0.4 mg Cap 24 hr capsule Take 1 capsule (0.4 mg total) by mouth nightly. 3 Active aspirin 81 MG EC tablet Take 1 tablet (81 mg total) by mouth daily. Active empagliflozin (JARDIANCE) 25 mg tablet Take 1 tablet (25 mg total) by mouth daily. Active insulin glargine (LANTUS, SEMGLEE) 100 unit/mL injection Inject 40 Units subcutaneously 2 (two) times daily 40 units. Active hydrOXYzine (ATARAX) 50 MG tablet SMARTSI Tablet(s) By Mouth Every Evening PRN 4 Active metFORMIN (GLUCOPHAGE) 1000 MG tablet Take 1 tablet (1,000 mg total) by mouth 2 (two) times daily with breakfast and dinner. 0 4 Active atorvastatin (LIPITOR) 40 MG tablet Take 1 tablet (40 mg total) by mouth nightly. 30 tablet 11 4 Active Brilinta 60 mg tab tablet TAKE 1 TABLET BY MOUTH TWICE A DAY 180 tablet 3 4 Active Active Problems Problem Noted Date Diagnosed Date Sleep apnea 10/12/2023 10/12/2023 History of obstructive sleep apnea 10/12/2023 10/12/2023 Hard of hearing 10/12/2023 10/12/2023 Glaucoma 10/12/2023 10/12/2023 Disorder of prostate 10/12/2023 10/12/2023 Stented coronary artery 10/12/2023 10/12/19 Chronic anxiety 10/12/2023 10/12/2023 Cataract 10/12/2023 10/12/2023 At risk for sleep apnea 10/12/2023 10/12/19 24 Arthritis 10/12/2023 10/12/2023 Coronary artery disease invo lving coronary bypass graft of [place] heart without angina pectoris 08/28/2023 Venous hypertension 08/28/2023 Primary hypertension 08/28/2023 Mixed hyperlipidemia 08/28/2023 Other acute osteomyelitis, right ankle and foot 06/22/2023 10/12/2023 Generalized muscle weakness 06/22/2023 02/0 09/2023 Gastro-esophageal reflux disease without esophag itis 06/22/2023 10/12/2023 Encounter for orthopedic aft ercare following surgical amputation 06/22/2023 10/12/2023 Difficulty in walking, not elsewhere classified 06/22/2023 10/12/2023 Benign prostatic hyperplasia with lower urinary tract symptoms 06/22/2023 10/12/2023 Acquired absence of right great toe 06/22/2023 10/12/2023 Diabetic infection of right foot 06/19/2023 Diabetic foot infection 06/18/2023 Cellulitis of foot 06/08/2023 Steatosis of liver 12/21/2022 10/12/2023 Gastroesophageal reflux disease 12/21/2022 10/12/2023 Chronic depression 12/21/2022 10/12/2023 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 06/25/2021 10/12/2023 Chronic acquired lymphedema 06/25/2021 0209/2023 Obesity 12/25/2020 10/12/2023 Edema of extremities 12/25/2020 10/12/2023 Presence of aortocoronary bypass graft 10/12/2023 Family History Medical History Relation Name Comments Hypertension Brother Vision loss Brother Depression Father Diabetes Father Vision loss Father Arthritis Maternal Grandfather Arthritis Maternal Grandmother COPD Maternal Grandmother Arthritis Mother Asthma Mother Vision loss Mother Asthma Paternal Aunt Diabetes Paternal Aunt Diabetes Paternal Grandfather Asthma Paternal Grandmother Diabetes Paternal Grandmother Diabetes Paternal Uncle Hypertension Sister Vision loss Sister Relation Name Status Comments Brother Father Maternal Grandfather Maternal Grandmother Mother Paternal Aunt Paternal Grandfather Paternal Grandmother Paternal Uncle Sister Social History Tobacco Use Types Packs/Day Years Used Date Smoking Tobacco: Former Cigarettes Smokeless Tobacco: Never Tobacco Cessation:Counseling Given: Not Answered Alcohol Use Standard Drinks/Week Comments Not Currently 0 (1 standard drink = 0.6 oz pur e alcohol) PRAPARE - Transportation Answer Date Re corded In the past 12 months, has l ack of transportation kept you from medical appointments or from getting medications? No 06/19/2023 Lack of Transportation (Non-Medical) Not on file 06/19/2023 Food Insecurity Answer Date Recorded Food run out past 12 months Not on file 09/11 Food did not last past 12 months Not on file 09/20/2023 Employment Answer Date Recorded Help finding and keeping a job Not on file 0 09/20/2023 Family and Community Support Answer Сергей e Recorded Help with Day to Day Activities Not on file 09/20/2023 Feeling Lonely or Isolated Not on file 09/20 Educational Attainment Answer Date Robe rded Speak language other than Georgian at home Not on file 09/20/2023 Want help with school or training Not on file 09/20/2023 Substance Use Answer Date Recorded Used prescription meds for non-medical reasons N ot on file 09/20/2023 Used illegal drugs past 12 months Not on file 09/20/2023 Sex and Gender Information Value Date Recorded Sex Assigned at Male 06/19/2023 4:40 PM CDT Legal Sex Male 1:15 PM CDT Gender Identity Male 06/19/2023 4:40 PM CDT Sexual Orientation Straight 06/19/2023 4: 40 PM CDT Last Filed Vital Signs Vital Sign Reading Time Taken Comments Blood Pressure 110/70 05/14/2024 10:27 AM EDT Pulse 67 05/14/2024 10:27 AM EDT Temperature 36.5 C (97.7 F) 10/12/2023 10:51 AM EST Respiratory Rate 11 10/12/2023 6:32 PM EST Oxygen Saturation 94% 10/12/2023 6:32 PM EST Inhaled Oxygen Concentration - - Weight 98 kg (216 lb) 05/14/2024 10:27 AM EDT Height 175.3 cm (5' 9 ) 05/14/2024 10:27 AM EDT Body Mass Index 31.9 05/14/2024 10:27 AM EDT Plan of Treatment Health Maintenance Due Date Last Done Comments CT Colonography 1960 Colonoscopy 1960 Colorectal Cancer Screening 1960 Diabetic Kidney Health Evaluation (KED) 1960 FOBT/FIT 1960 Fit-DNA (Cologuard) 1960 Sigmoidoscopy 1960 Diabetic Eye Exam 1968 Hepatitis C Screening 1976 Pneumococcal 50+ years (1 of 2 - PCV) 1977 Medicare Initial AWV G0438 01/10/2017 Respiratory Syncytial Virus (RSV) Adult or (1 - Risk 60-74 years 1-dose series) 2018 Shingles Vaccine (Zoster) (2 of 2) 12/23/20192019 Hemoglobin A1C 09/08/2023 06/09/2023 Abdominal Aortic Aneurysm (AAA) Screen 11/21/2023 COVID-19 VACCINE ( season) 2024, 11/17/2020 Falls Risk Screening 09/11/2024 Influenza Vaccine (#1) 2025 05/31/2023, 2021 Tobacco Cessation Counseling and Screening (12+) 05/14/2025 05/14/2024 DTAP/TDAP/TD VACCINES (2 - Td or Tdap) 05/31/2033 Procedures Procedure Name Priority Date/Time Associated Diagnosis Comments HEMOGLOBIN A1C STAT 06/09/2023 4:20 AM EDT from Last 3 Months or Most Recently Relevant to Health Maintenance Results * Hemoglobin A1c (06/09/2023 4:20 AM EDT) Hemoglobin A1C 9.2 % 06/09/2023 1:[address] [facility] eAVG Glucose 217.34 mg/dL 06/09/2023 1:[address] [facility] Blood Venipuncture / Unknown 06/09/2023 4:20 AM EDT 06/09/2023 4:42 AM EDT us Viviane Bean MD LAB BLOOD ORDERABLES Sabrina denis Result 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 06/11/2023 Insurance [facility] MEDICARE PPO Advance Directives For more information, please contact: [phone] * Full Code (Latest Code Status on File) Date Activated Date Inactivated Comments 10/12/2023 1:49 PM 10/13/2023 4:27 AM * Full Code Date Activated Date Inactivated Comments 10/12/2023 9:19 AM 10/12/2023 1:49 PM * Full Code Date Activated Date Inactivated Comments 06/18/2023 4:54 PM 06/22/2023 3:28 PM * Full Code Date Activated Date Inactivated Comments 06/08/2023 4:13 PM 06/15/2023 6:20 PM Care Teams Mba Intern Relationship Specialty Start Date End Date Annalise Carter, [address] [place] [address] PCP - General Family Medicine 06/06/23 Chuck Mei PA-C [address], [facility] [address] [place] [id number] Cardiology 11/01/23
--- OUTSIDE RECORDS SUMMARY | 2025-05-05 12:24 | XMS_ITS | Referral Summary ---
Author Organization [employer] ([place], [place], [place], [place]) Address [address] [place] [address] Care Team Providers Care Fur Matcher Name Role Phone Annalise Carter DO Primary Care Provider [phone] Chuck Mei PA-C Unavailable [phone] Allergies Active Allergy Reactions Criticality Noted [...] disease invo lving coronary bypass graft of [place] heart without angina pectoris 08/28/2023 Venous hypertension [...] 12/25/2020 10/12/2023 Presence of aortocoronary bypass graft 0 10/12/2023 Social History Tobacco Use Types Packs/Day Years [...] Date Robe rded Speak language other than Tanzanian at home Not on file 09/20/2023 Want [...] 05/14/2024 10:27 AM EDT Plan of Treatment Not on file Procedures Procedure Name Priority Date/Time Associated Diagnosis Comments HEMOGLOBIN A1C STAT 06/09/2023 4:20 AM EDT from Last 3 Months or Most Recently Relevant to Health Maintenance Results * Hemoglobin A1c (06/09/2023 4:20 AM EDT) Hemoglobin A1C 9.2 % 06/09/2023 1:08 PM EDT [facility] eAVG Glucose 217.34 mg/dL 06/09/2023 1:08 PM EDT [facility] Blood Venipuncture / Unknown 06/09/2023 4:20 AM EDT 06/09/2023 4:42 AM EDT Viviane Bean MD LAB BLOOD ORDERABLES Sabrina denis Result [facility] [address] [phone] from Last 3 Months or Most Recently Relevant to Health Maintenance Additional Health Concerns Infection Onset Date Last 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/2023 06/11/2023 Insurance [facility] MEDICARE PPO Advance Directives For more information, please contact: [phone] * Full Code (Latest Code Status on File) Date Activated Date Inactivated Comments 10/12/2023 1:49 PM 10/13/2023 4:27 AM * Full Code Date Activated Date Inactivated Comments 10/12/2023 9:19 AM 10/12/2023 1:49 PM * Full Code Date Activated Date Inactivated Comments 06/18/2023 4:54 PM 06/22/2023 3:28 PM * Full Code Date Activated Date Inactivated Comments 06/08/2023 4:13 PM 06/15/2023 6:20 PM Care Teams Fur Matcher Relationship Specialty Start Date End Date Annalise Carter, DO [address] [place] [address] PCP - General Family Medicine 06/06/23 Chukc Mei PA-C [address], [facility] [address] [place] [address] Cardiology 11/01/23
--- OUTSIDE RECORDS SUMMARY | 2025-05-05 12:24 | XMS_ITS | Encounter Summary ---
Author Organization [employer] ([place], [place], [place], [place]) Address [address] [place] [address] Care Team Providers Care Fine Wire Drawer Name Role Phone Annalise Carter DO Primary Care Provider [phone] Chuck Mei PA-C Unavailable [phone] Encounter Details Date Type Department Care Team (Late st Contact Info) Description 05/25/2020 Transcribed Document [facility] Family Medicine [address] [place] [address] ProviderLars MD [address] [place] [address] Social History Tobacco Use Types [...] Conversion Note - Lars ProviderMD - 05/25/2020 10:18 PM CDT Patient: ROSARIO GREGG Age: 59 Years Sex: Male : 1960 Subjective Date of Service: 05/25/2020 22:18:44 Seen from door due to COVID PPE conservation protocol. Seems to be feeling better. Less dyspneic. Vital Signs T: 36.6 ??C TMIN: 36.6 ??C TMAX: 36.8 ??C HR: 100(Monitored) RR: 37 BP: 116/66 SpO2: 90% WT: 98.5 kg Oxygen Settings (Last) Oxygen Therapy Mode: High humidity, high flow therapy (05/25/20 21:14:00) Oxygen Flow Rate: 50 Liter/Min (05/25/20 21:14:00) Intake & Output Totals Last 24 Hours (7a-7a) Input Total: 1462 mL Output Total: 1850 mL Balance: -388 mL Physical Exam General: no acute distress Neurologic: Awake, alert Assessment/Plan Acute hypoxic respiratory failure secondary to COVID pneumonia and pulmonary edema Placed on Oxygen Combivent inhaler IV Antibiotics Steroids remdesivir Convalescent plasma Clinically improving COVID Pneumonia: Completed abx Acute Pulmonary edema Improved VTE Prophylaxis - Medical Enoxaparin 40 mg, SubCutaneous, Inj, [id number], Routine, Start 05/25/20 15:00:00 EDT, 05/25/20 14:21:00 EDT (BETHANY BRAVO WOJCIECH) Ticagrelor 90 mg, Oral, Tab, BID, Routine, Start 05/24/20 9:00:00 EDT (LEONIE MCGEE) Sequential Compression Device Start: 05/23/20 9:55:00 EDT, Bilateral, While patient is in bed, Continuous Order (MICKI LAZAR) Medications atorvastatin, 40 mg= 1 Tab, Oral, At Bedtime Combivent Respimat CFC free 100 mcg-20 mcg/inh [...] 2 mL, IV Push, Q3H, PRN Lantus, 15 Units= 0.15 mL, SubCutaneous, BID Lasix, 20 mg= 2 mL, IV Push, BID lisinopril, 5 mg= 1 Tab, Oral, Daily Lopressor, 50 mg= 1 Tab, Oral, BID Lovenox, 40 mg= 0.4 mL, SubCutaneous, [id number] Mucinex, 600 mg= 1 Tab, Oral, BID Nitrostat, 0.4 mg= 1 Tab, SubLINgual, Q5Min, PRN Normal Saline Flush, 10 mL, IV Push, See Comment Pepcid, 20 mg= 1 Tab, Oral, BID remdesivir ticagrelor, 90 mg= 1 Tab, Oral, BID Tylenol, 650 mg= 2 Tab, Oral, Q4H, PRN Zofran, 4 mg= 2 mL, IV Push, Q4H, PRN Lab Results Test Name Test Result Date/Time pH Art 7.44 05/25/2020 06:45 EDT pCO2 Art 32.3 mmHg (Low) 05/25/2020 06:45 EDT pO2 Art 63.5 mmHg (Low) 05/25/2020 06:45 EDT HCO3 Art 22.1 mmol/L 05/25/2020 06:45 EDT BE Art -1.3 mmol/L 05/25/2020 06:45 EDT sO2 Art 93.3 % (Low) 05/25/2020 06:45 EDT tHb Art 12.7 Gram/dL 05/25/2020 06:45 EDT FHHb 6.6 % 05/25/2020 06:45 EDT ctO2 16.4 mmol/L 05/25/2020 06:45 EDT FIO2 Art 70 05/25/2020 06:45 EDT Delivery Device Type Art OptiFlow 05/25/2020 06:45 EDT Temperature, F Art 98.6 Deg F 05/25/2020 06:45 EDT Art Blood Gas (ABG) Site Right Radial 05/25/2020 06:45 EDT Acceptable Lincoln's Test Art Acceptable 05/25/2020 06:45 EDT Ventilator Mode Art N/A 05/25/2020 06:45 EDT Oxygen Flow Rate Art 45.0 Liter 05/25/2020 06:45 EDT ABG Num of Draw Attempts 1 05/25/2020 06:45 EDT Sodium Level 142 mmol/L 05/25/2020 02:15 EDT Potassium Level 4.9 mmol/L 05/25/2020 02:15 EDT Chloride Level 114 mmol/L (High) 05/25/2020 02:15 EDT Carbon Dioxide Level 22 mmol/L 05/25/2020 02:15 EDT Anion Gap 11 05/25/2020 02:15 EDT Glucose Level 176 mg/dL (High) 05/25/2020 02:15 EDT Blood Urea Nitrogen 28 mg/dL (High) 05/25/2020 02:15 EDT Creatinine Level 1.00 mg/dL 05/25/2020 02:15 EDT eGFR >60 mL/min/1.73m2 05/25/2020 02:15 EDT eGFR NonAfrican >60 mL/min/1.73m2 05/25/2020 02:15 EDT Bun/Creatinine 28.0 (High) 05/25/2020 02:15 EDT Calcium Level 8.4 mg/dL 05/25/2020 02:15 EDT Protein Total 7.1 Gram/dL 05/25/2020 02:15 EDT Albumin Level 2.7 Gram/dL (Low) 05/25/2020 02:15 EDT Globulin 4.4 Gram/dL 05/25/2020 02:15 EDT A/G Ratio 0.6 (Low) 05/25/2020 02:15 EDT Bilirubin Total 0.3 mg/dL 05/25/2020 02:15 EDT Alk Phos 67 Units/Liter 05/25/2020 02:15 EDT AST 21 Units/Liter 05/25/2020 02:15 EDT ALT 25 Units/Liter 05/25/2020 02:15 EDT Magnesium Level 2.6 mg/dL (High) 05/25/2020 02:15 EDT Phosphorus 2.1 mg/dL (Low) 05/25/2020 02:15 EDT Device Comment 1 Protocols Followed 05/25/2020 20:38 EDT Device Comment 1 Protocols Followed 05/25/2020 16:15 EDT Device Comment 1 Received Meds 05/25/2020 06:17 EDT Glucose POC2 316 mg/dL (High) 05/25/2020 20:38 EDT Glucose POC2 353 mg/dL (High) 05/25/2020 16:15 EDT Glucose POC2 236 mg/dL (High) 05/25/2020 11:22 EDT Glucose POC2 206 mg/dL (High) 05/25/2020 06:17 EDT Calcium Ionized 1.16 mmol/L 05/25/2020 02:15 EDT WBC 11.6 K/uL (High) 05/25/2020 02:15 EDT RBC 3.97 Million/uL (Low) 05/25/2020 02:15 EDT Hgb 11.8 g/dL (Low) 05/25/2020 02:15 EDT Hct 36.1 % (Low) 05/25/2020 02:15 EDT MCV 90.9 fL 05/25/2020 02:15 EDT MCH 29.7 pg 05/25/2020 02:15 EDT MCHC 32.7 Gram/dL 05/25/2020 02:15 EDT Platelet Count 226 K/uL 05/25/2020 02:15 EDT MPV 10.2 fL 05/25/2020 02:15 EDT RDW 13.3 % 05/25/2020 02:15 EDT Neut % 87.0 % (High) 05/25/2020 02:15 EDT Neut # 10.13 K/uL (High) 05/25/2020 02:15 EDT Lymph % 8.2 % (Low) 05/25/2020 02:15 EDT Lymph # 0.95 x10(3)/uL (Low) 05/25/2020 02:15 EDT [place] % 4.0 % 05/25/2020 02:15 EDT [place] # 0.47 K/uL 05/25/2020 02:15 EDT Eos % 0.0 % 05/25/2020 02:15 EDT Eos # 0.00 x10(3)/uL 05/25/2020 02:15 EDT Baso % 0.1 % 05/25/2020 02:15 EDT Baso # 0.01 x10(3)/uL 05/25/2020 02:15 EDT Slide Review No 05/25/2020 02:15 EDT IG# 0.08 x10(3)/uL (High) 05/25/2020 02:15 EDT IG% 0.70 % (High) 05/25/2020 02:15 EDT documented in this encounter Plan of Treatment Not on file documented as of this encounter Visit Diagnoses Not on filedocumented in this encounter Additional Health Concerns Infection Onset Date Last Indicated Resolved Time MRSA (C) 06/11/2023 06/11/2023 documented as of this encounter Care Teams Fine Wire Drawer Relationship Specialty Start Date End Date Annalise Carter, DO [address] [place] [address] PCP - General Family Medicine 06/06/23 Chuck Mei PA-C [address], [facility] [address] [place] [address] Cardiology 11/01/23 documented as of this encounter
--- OUTSIDE RECORDS SUMMARY | 2025-05-05 12:24 | XMS_ITS | Encounter Summary ---
Author Organization [employer] ([place], [place], [place], [place]) Address [address] [place] [address] Care Team Providers Care Forestry Supervisor Name Role Phone Annalise Carter DO Primary Care Provider [phone] Chuck Mei PA-C Unavailable [phone] Encounter Details Date Type Department Care Team (Late st Contact Info) Description 07/08/2020 Transcribed Document [facility] Family Medicine [address] [place] [address] ProviderLars MD [address] [place] [address] Social History Tobacco Use Types [...] Conversion Note - Lars ProviderMD - 07/08/2020 4:16 AM CDT ED Discharge Entered On: 07/08/2020 4:16 EDT Performed On: 07/08/2020 4:16 EDT by PAYAL LUNSFORD RN Discharge Process Patient Disposition : Admit/Observe Personal Belongings With Patient : Yes Patient Education Completed : Yes PAYAL LUNSFORD RN - 07/08/2020 4:16 EDT Admission, ED `Nurse Report (Hand Off) : Called Mode Of Departure : Wheelchair PAYAL LUNSFORD RN - 07/08/2020 4:16 EDT Electronically signed by Brittni Gerardo Conversion Application Infrastructure Engineer Cerner at 12/27/2022 11:45 AM CDT documented in this encounter Plan of Treatment Not on file documented as of this encounter Visit Diagnoses Not on filedocumented in this encounter Additional Health Concerns Infection Onset Date Last Indicated Resolved Time MRSA (C) 06/11/2023 06/11/2023 documented as of this encounter Care Teams Forestry Supervisor Relationship Specialty Start Date End Date Annalise Carter, [address] [facility] [address] [place] [address] PCP - General Family Medicine 06/06/23 Chuck Mei PA-C [address], [facility] [address] [place] [address] Cardiology 11/01/23 documented as of this encounter
--- OUTSIDE RECORDS SUMMARY | 2025-05-05 12:24 | XMS_ITS | Encounter Summary ---
Author Organization [employer] ([place], [place], [place], [place]) Address [address] [place] [address] Care Team Providers Care Public Relations Counselor Name Role Phone Annalise Carter DO Primary Care Provider [phone] Chuck Mei PA-C Unavailable [phone] Encounter Details Date Type Department Care Team (Late st Contact Info) Description 07/07/2020 Transcribed Document [facility] [place] [address] [place] [address] ProviderLars MD [address] [place] [address] Social History Tobacco Use Types [...] ProviderMD - 07/07/2020 2:14 PM CDT ED Triage Entered On: 07/07/2020 14:22 EDT Performed On: 07/07/2020 14:19 EDT by Zoraida Townsend RN ED Triage Across the Room Chief Complaint : pt from home with c/o bloody hemoptysis. States he sees about a tablespoon of bright red blood with each cough. Just started about 40 minutes ago. HX covid, was here in ICU discharged about a month ago. Triage Date/Time : 07/07/2020 14:19 EDT Zoraida Townsend RN - 07/07/2020 14:19 EDT Zoraida Townsend RN - 07/07/2020 14:19 EDT DCP GENERIC CODE Tracking Group : [facility] ED Zoraida Townsend RN - 07/07/2020 14:19 EDT Tracking Acuity : 2 - Emergent GEOVANY SINGLETON - 07/08/2020 1:08 EDT Mode of Arrival : Ambulatory Transported to ED by : Private vehicle To Room Via : Ambulate Accompanied By : Unaccompanied ED Vital Signs : Document Height & Weight : Document ED Allergies : Document ED Reason for Visit : Document Tetanus Immunization : Greater than 5 years Collating Machine Operator Needed : No Zoraida Townsend RN - 07/07/2020 14:19 EDT Infectious Disease History Has the patient ever been tested for COVID-19? : Yes, Patient stated results Positive Date of COVID-19 test known? : No Does patient have symptoms of COVID-19? : No COVID19 Screening : No Experiencing Infectious Disease Symptoms : Cough Physical contact outside US in the last 30 days : No Infectious Disease History : Chicken pox/Shingles, Measles, Meningitis, Mumps, Pertussis (Whooping cough) Tuberculosis Symptoms : None Zoraida Townsend RN - 07/07/2020 14:19 EDT Vital Signs ED Temperature Source : Temporal artery scanning Temperature Mode : Fahrenheit Temperature, Fahrenheit : 98.0 Deg F Clinical Temperature, C : 36.7 Deg C Oxygen Therapy Mode : Room air Peripheral Pulse Rate : 98 bpm Respiratory Rate : 20 Breaths/Min Blood Pressure Location : Arm, right upper Blood Pressure Source : Non-Invasive BP Device Systolic Blood Pressure : 113 mmHg Diastolic Blood Pressure : 61 mmHg Oxygen Saturation : 93 % (LOW) Zoraida Townsend RN - 07/07/2020 14:19 EDT Allergy (As Of: 07/07/2020 14:22:33 EDT) Allergies (Active) morphine Estimated Onset Date: Unspecified ; Created By: Contributor_system HIST_MIGUEL; Reaction Status: Active ; Category: Drug ; Substance: morphine ; Type: Allergy ; Updated By: Contributor_system HIST_MIGUEL; Reviewed Date: 07/07/2020 14:21 EDT Diagnosis Control ED (As Of: 07/07/2020 14:22:33 EDT) Problems(Active) Arthritis (SNOMED CT :4977841 ) Name of Problem: Arthritis ; Recorder: JAKE AHMADI RN; Confirmation: Confirmed ; Classification: Patient Stated ; Code: [id number] ; Contributor System: UnioncyChart ; Last Updated: 11/17/2016 12:24 EST ; Life Cycle Date: 11/17/2016 ; Life Cycle Status: Active ; Vocabulary: SNOMED CT CAD - Coronary artery disease (SNOMED CT :5443159367 ) Name of Problem: CAD - Coronary artery disease ; Recorder: LEONIE MCGEE APRN; Confirmation: Confirmed ; Classification: Medical ; Code: [id number] ; Contributor System: PowerChart ; Last Updated: 11/17/2016 13:51 EST ; Life Cycle Date: 11/17/2016 ; Life Cycle Status: Active ; Vocabulary: SNOMED CT Cataract (SNOMED CT :[id number] ) Name of Problem: Cataract ; Recorder: JAKE AHMADI RN; Confirmation: Confirmed ; Classification: Patient Stated ; Code: [id number] ; Contributor System: PowerChart ; Last Updated: 11/17/2016 12:22 EST ; Life Cycle Date: 11/17/2016 ; Life Cycle Status: Active ; Vocabulary: SNOMED CT Chronic anxiety (SNOMED CT :438423446 ) Name of Problem: Chronic anxiety ; Recorder: JAKE AHMADI RN; Confirmation: Confirmed ; Classification: Patient Stated ; Code: [id number] ; Contributor System: PowerChart ; Last Updated: 11/17/2016 12:25 EST ; Life Cycle Date: 11/17/2016 ; Life Cycle Status: Active ; Vocabulary: SNOMED CT Chronic depression (SNOMED CT :685536750 ) Name of Problem: Chronic depression ; Recorder: JAKE AHMADI RN; Confirmation: Confirmed ; Classification: Patient Stated ; Code: 917644109 ; Contributor System: [employer]Chart ; Last Updated: 11/17/2016 12:25 EST ; Life Cycle Date: 11/17/2016 ; Life Cycle Status: Active ; Vocabulary: SNOMED CT Coronary artery disease (SNOMED CT :5174263149 ) Name of Problem: Coronary artery disease ; Recorder: JAKE AHMADI RN; Confirmation: Confirmed ; Classification: Patient Stated ; Code: [id number] ; Contributor System: PowerChart ; Last Updated: 11/17/2016 12:23 EST ; Life Cycle Date: 11/17/2016 ; Life Cycle Status: Active ; Vocabulary: SNOMED CT Diabetes mellitus (SNOMED CT :693937776 ) Name of Problem: Diabetes mellitus ; Recorder: LEONIE MCGEE APRN; Confirmation: Confirmed ; Classification: Medical ; Code: 856990005 ; Contributor System: PowerChart ; Last Updated: 11/17/2016 13:52 EST ; Life Cycle Date: 11/17/2016 ; Life Cycle Status: Active ; Vocabulary: SNOMED CT Diabetes mellitus type II (SNOMED CT :75786021 ) Name of Problem: Diabetes mellitus type II ; Recorder: JAKE AHMADI RN; Confirmation: Confirmed ; Classification: Patient Stated ; Code: 03784563 ; Contributor System: UnioncyChart ; Last Updated: 11/17/2016 12:24 EST ; Life Cycle Date: 11/17/2016 ; Life Cycle Status: Active ; Vocabulary: SNOMED CT Disorder of prostate (SNOMED CT :41723878 ) Name of Problem: Disorder of prostate ; Recorder: JAKE AHMADI RN; Confirmation: Confirmed ; Classification: Patient Stated ; Code: 43674220 ; Contributor System: PowerChart ; Last Updated: 11/17/2016 12:24 EST ; Life Cycle Date: 11/17/2016 ; Life Cycle Status: Active ; Vocabulary: SNOMED CT Glaucoma (SNOMED CT :48537075 ) Name of Problem: Glaucoma ; Recorder: JAKE AHAMDI RN; Confirmation: Confirmed ; Classification: Patient Stated ; Code: 74056828 ; Contributor System: PowerChart ; Last Updated: 11/17/2016 12:22 EST ; Life Cycle Date: 11/17/2016 ; Life Cycle Status: Active ; Vocabulary: SNOMED CT Hard of hearing (SNOMED CT :368949390 ) Name of Problem: Hard of hearing ; Recorder: JAKE AHMADI RN; Confirmation: Confirmed ; Classification: Patient Stated ; Code: 980642218 ; Contributor System: UnioncyChart ; Last Updated: 11/17/2016 12:22 EST ; Life Cycle Date: 11/17/2016 ; Life Cycle Status: Active ; Vocabulary: SNOMED CT Heart valve (SNOMED CT :650642552 ) Name of Problem: Heart valve ; Recorder: JAKE AHMADI RN; Confirmation: Confirmed ; Classification: Patient Stated ; Code: 097877705 ; Contributor System: UnioncyChart ; Last Updated: 11/17/2016 12:23 EST ; Life Cycle Date: 11/17/2016 ; Life Cycle Status: Active ; Vocabulary: SNOMED CT History of obstructive sleep apnea (IMO :13479844 ) Name of Problem: History of obstructive sleep apnea ; Recorder: SYSTEM, SYSTEM; Confirmation: Confirmed ; Classification: Medical ; Code: 75834513 ; Last Updated: 05/23/2020 18:55 EDT ; Life Cycle Date: 05/23/2020 ; Life Cycle Status: Active ; Vocabulary: IMO HLD - Hyperlipidemia (SNOMED CT :445531141 ) Name of Problem: HLD - Hyperlipidemia ; Recorder: EVERARDO; Confirmation: Confirmed ; Classification: Medical ; Code: 468924223 ; Contributor System: PowerChart ; Last Updated: 11/17/2016 13:52 EST ; Life Cycle Date: 11/17/2016 ; Life Cycle Status: Active ; Vocabulary: SNOMED CT HTN (hypertension) (SNOMED CT :[id number] ) Name of Problem: HTN (hypertension) ; Recorder: EVERARDO; Confirmation: Confirmed ; Classification: Medical ; Code: [id number] ; Contributor System: UnioncyChart ; Last Updated: 11/17/2016 13:51 EST ; Life Cycle Date: 11/17/2016 ; Life Cycle Status: Active ; Vocabulary: SNOMED CT Hyperlipidemia (SNOMED CT :39190354 ) Name of Problem: Hyperlipidemia ; Recorder: JAKE AHMADI RN; Confirmation: Confirmed ; Classification: Patient Stated ; Code: 35874324 ; Contributor System: PowerChart ; Last Updated: 11/17/2016 12:23 EST ; Life Cycle Date: 11/17/2016 ; Life Cycle Status: Active ; Vocabulary: SNOMED CT Hypertension (SNOMED CT :24355590 ) Name of Problem: Hypertension ; Recorder: JAKE AHMADI RN; Confirmation: Confirmed ; Classification: Patient Stated ; Code: 40509451 ; Contributor System: UnioncyChart ; Last Updated: 11/17/2016 12:23 EST ; Life Cycle Date: 11/17/2016 ; Life Cycle Status: Active ; Vocabulary: SNOMED CT Pneumonia (SNOMED CT :414808336 ) Name of Problem: Pneumonia ; Recorder: JAKE AHMADI RN; Confirmation: Confirmed ; Classification: Patient Stated ; Code: 911794621 ; Contributor System: UnioncyChart ; Last Updated: 11/17/2016 12:23 EST ; Life Cycle Date: 11/17/2016 ; Life Cycle Status: Active ; Vocabulary: SNOMED CT Renal calculus (SNOMED CT :201936097 ) Name of Problem: Renal calculus ; Recorder: JAKE AHMADI RN; Confirmation: Confirmed ; Classification: Patient Stated ; Code: 000352183 ; Contributor System: UnioncyChart ; Last Updated: 11/17/2016 12:24 EST ; Life Cycle Date: 11/17/2016 ; Life Cycle Status: Active ; Vocabulary: SNOMED CT Sleep apnea (SNOMED CT :425299149 ) Name of Problem: Sleep apnea ; Recorder: JAKE AHMADI RN; Confirmation: Confirmed ; Classification: Patient Stated ; Code: 121839895 ; Contributor System: UnioncyChart ; Last Updated: 11/17/2016 12:23 EST ; Life Cycle Date: 11/17/2016 ; Life Cycle Status: Active ; Vocabulary: SNOMED CT Stented coronary artery (SNOMED CT :3564067789 ) Name of Problem: Stented coronary artery ; Recorder: JAKE AHMADI RN; Confirmation: Confirmed ; Classification: Patient Stated ; Code: 5236905543 ; Contributor System: UnioncyChart ; Last Updated: 11/17/2016 12:23 EST ; Life Cycle Date: 11/17/2016 ; Life Cycle Status: Active ; Vocabulary: SNOMED CT Diagnoses(Active) Cough - Major hemoptysis Date: 07/07/2020 ; Diagnosis Type: Reason For Visit ; Confirmation: Complaint of ; Clinical Dx: Cough - Major hemoptysis ; Classification: Medical ; Clinical Service: Non-Specified ; Code: PNED ; Probability: 0 ; Diagnosis Code: [id number] ED Height and Weight Height Source : Stated Height Entry Format : [place] Height, Feet : 5 ft(Converted to: 152 cm, 60 Inch) Height, Inches : 8 Inch(Converted to: 0 ft 8 Inch, 20.32 cm) Clinical Height : 172.72 cm Weight Source, ED : Critical estimated dosing weight Weight Entry Format : [place] Weight, Pounds : 204 lb Clinical Dosing Weight : 92.73 kg Body Surface Area (BSA) : 2.06 m2 Body Mass Index : 31.1 kg/m2 (HI) [place] Body Weight (IBW) : 67.45 kg Zoraida Townsend RN - 07/07/2020 14:19 EDT Electronically signed by [facility] Conversion Rejected Items Clerk Cerner at 12/27/2022 12:07 PM CDT documented in this encounter Plan of Treatment Not on file documented as of this encounter Visit Diagnoses Not on filedocumented in this encounter Additional Health Concerns Infection Onset Date Last Indicated Resolved Time 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
--- OUTSIDE RECORDS SUMMARY | 2025-05-05 12:24 | XMS_ITS | Encounter Summary ---
Author Organization [employer] ([place], [place], [place], [place]) Address [address] [place] [address] Care Team Providers Care Cushion Filler Name Role Phone Annalise Carter DO Primary Care Provider [phone] Chuck Mei PA-C Unavailable [phone] Encounter Details Date Type Department Care Team (Late st Contact Info) Description 05/25/[address] [facility] [place] Medicine [facility] [place] [place] [address] ProviderLars MD [address] [place] [address] Social History Tobacco Use Types [...] Conversion Note - Lars ProviderMD - 05/25/2020 5:00 PM CDT Chart Check - Review Order Profile Entered On: 05/25/2020 18:35 EDT Performed On: 05/25/2020 17:00 EDT by RUSSELL KUNZ RN Chart Check Powerplans Initiated/Discontinued as Appropriate : Yes All Active Orders Reviewed : Yes RUSSELL KUNZ RN - 05/25/2020 18:35 EDT documented in this encounter Plan of Treatment Not on file documented as of this encounter Visit Diagnoses Not on filedocumented in this encounter Additional Health Concerns Infection Onset Date Last Indicated Resolved Time MRSA (C) 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
--- OUTSIDE RECORDS SUMMARY | 2025-05-05 12:24 | XMS_ITS | Encounter Summary ---
Author Organization [employer] ([place], [place], [place], [place]) Address [address] [place] [address] Care Team Providers Care Position Classification Manager Name Role Phone Annalise Carter DO Primary Care Provider Chuck Mei PA-C Unavailable [phone] Encounter Details Date Type Department Care Team (Late st Contact Info) Description 07/07/2020 Transcribed Document [facility] [place] [facility] [place] [address] ProviderLars MD [address] [place] [address] Social History Tobacco Use Types [...] Conversion Note - Historical ProviderMD - 07/07/2020 7:03 PM CDT Admission History, Adult Entered On: 07/08/2020 4:31 EDT Performed On: 07/07/2020 19:03 EDT by Nona Finney Lpn Advance Directive Patient has Advance Directive *Q : No, patient requests assist formulating Advance Directive Nona Finney Lpn - 07/08/2020 4:24 EDT Anesthesia/Transfusion History Family History of Anesthesia Reaction : Prior transfusion without reaction Transfusion History : Prior anesthesia without reaction Family History of Anesthesia Reaction : None Nona Finney Lpn 07/08/2020 4:24 EDT Anticipated Discharge Needs Discharge To, Anticipated : Home Nona Finney Lpn 07/08/2020 4:24 EDT Education Topics, Admission Orientation DCP GENERIC CODE Advance Directives : Verbalizes understanding Allergy Band Applied : Verbalizes understanding Assessment/Vital Signs : Verbalizes understanding Bed Control : Verbalizes understanding Call Light : Verbalizes understanding Confidentiality : Verbalizes understanding Diet/Room Service : Verbalizes understanding Fall Prevention : Verbalizes understanding Hand Hygiene : Verbalizes understanding Healthcare Provider Visit : Verbalizes understanding ID Band Applied : Verbalizes understanding Isolation Precautions : Verbalizes understanding Orientation to Room/Bathroom : Verbalizes understanding Patient Bill of Rights : Verbalizes understanding Patient Rights/Responsibilities : Verbalizes understanding Patient Safety : Verbalizes understanding Personal Privacy Code : Verbalizes understanding Rapid Response Initiated by Patient/Family : Verbalizes understanding Rounding : Verbalizes understanding Siderails use/risks : Verbalizes understanding Skin Precautions : Verbalizes understanding Smoking Policy : Verbalizes understanding Telemetry Monitoring : Verbalizes understanding Television/Phone : Verbalizes understanding Visiting Policy : Verbalizes understanding Nona Finney Lpn 07/08/2020 4:24 EDT Functional Assessment Living Situation : Home Current Home Treatments : None, Other: has bipap does not wear it Nona Finney Lpn - 07/08/2020 4:24 EDT General Info Mode of Arrival on Unit : Ambulatory Legal Guardian : Unaccompanied Legal Guardian : No Support Person/Patient Customer Experience Analyst : Yes Support Person/Pt Rep Name : Camacho Rodriguez Password : 13 Support Person/Pt Rep Contact Information : [phone] Want Family/Rep/Phys Notified of Admit : No Emergency Contact #1 : Camacho Gregg Emergency Contact #1 Emergency Contact #1 Relationship : brother Emergency Contact #2 : Gigi Bronson [place] Emergency Contact #2 Emergency Contact #2 Relationship : son Chief Complaint : pt from home with c/o bloody hemoptysis. States he sees about a tablespoon of bright red blood with each cough. Just started about 40 minutes ago. HX covid, was here in ICU discharged about a month ago. Information Obtained From : Patient Primary Language : Citizen [place] Preferred Communication Mode : Verbal Communication Barrier : None Telephone Clerk Telegraph Office Needed : No Nona Finney Lpn - 07/08/2020 4:24 EDT Fall Risk Scales ABCs Fall Injury Risk Identification : Age, Bones ABC Fall Injury Risk : Moderate to high injury risk Injury Moderate to High Risk Interventions : Patient room close to nurses station, Transport methods appropriate to patient PATEL Hx Falls Immediate/Within 3 Months : No Patel Secondary Diagnosis : No PATEL Use of Ambulatory Aid : Bed rest/Nurse assist PATEL IV Therapy or IV Access : Yes Patel Gait/Transferring : Normal, bedrest, immobile Patel Mental Status : Oriented to own ability Patel Fall Risk Score : 20 PATEL Fall Scale Risk Level : 0-24 Low Risk [place] Fall Interventions : Adequate lighting, Assistive devices within reach, Bed in low position, Call device within reach, Fall prevention handout/education per facility policy, Hourly comfort/safety rounds, Non-slip footwear, Personal items within reach, Reinforced to call for assistance before getting out of bed, Room free of clutter/spills, Upper side-rails up, Wheels locked, Wires/Cords secured Fall Risk Scale Calc Temp : 0 Nona Finney Lpn - 07/08/2020 4:24 EDT Health Histories Smoking Status : Former smoker, quit more than 30 days ago Smokeless Tobacco Status : Never Nona Finney Lpn - 07/08/2020 4:24 EDT Social History (As Of: 07/08/2020 04:31:28 EDT) Tobacco: Smoking Status Former smoker. Last Used: Quit 6 years ago. (Last Updated: 11/17/2016 12:34:45 EST by JAKE AHMADI, RN) Alcohol: Alcohol Use History Yes. Date/Time of Last Drink: a little wine or beer 3 times a yr. Alcohol Use Frequency Rarely. (Last Updated: 11/17/2016 22:00:13 EST by CONSTANTIN BLACKBURN, RN) Substance Abuse: Drug Use Hx: No. Use in Last 12 Months: No. (Last Updated: 11/17/2016 22:00:23 EST by CONSTANTIN BLACKBURN, RN) Height and Weight, Clinical Dosing Height Source : Stated Height Entry Format : [place] Height, Feet : 5 ft(Converted to: 152 cm, 60 Inch) Height, Inches : 8 Inch(Converted to: 0 ft 8 Inch, 20.32 cm) Clinical Height : 172.72 cm Weight Source : Bed scale Weight Entry Format : [place] Clinical Dosing Weight : 92.73 kg Weight, Pounds : 204 lb Body Surface Area (BSA) : 2.06 m2 Body Mass Index : 31.1 kg/m2 (HI) [place] Body Weight : 67 kg Nona Finney Lpn - 07/08/2020 4:24 EDT Infectious Disease History Has the patient ever been tested for COVID-19? : Yes, Patient stated results Positive Date of COVID-19 test known? : Yes Date of COVID-19 Test : 07/08/2020 EDT Date Comment : negative Does patient have symptoms of COVID-19? : No COVID19 Screening : No Experiencing Infectious Disease Symptoms : Cough Physical contact outside US in the last 30 days : No Infectious Disease History : Chicken pox/Shingles, Measles, Meningitis, Mumps, Pertussis (Whooping cough) Tuberculosis Symptoms : None Nona Finney Lpn - 07/08/2020 4:24 EDT Tetanus Immunization Status Previous Tetanus Immunizations : No qualifying data available. Tetanus Immunization : Greater than 5 years Nona Finney Lpn - 07/08/2020 4:24 EDT Influenza Vaccine Asmt, Adult Previous Vaccines from Immunization Schedule : No qualifying data available. Influenza Immunization, Current Season : Yes Influenza Immunization Date : 04/11/2020 EDT Nona Finney Lpn - 07/08/2020 4:24 EDT Pneumococcal Vaccine Previous Vaccines from Immunization Schedule : No qualifying data available. Pneumonia Immunization Received : Yes Pneumonia Immunization Date : 04/11/2017 EDT Nona Finney Lpn - 07/08/2020 4:24 EDT Order Details Transport Mode Order Detail : Ambulatory Isolation Precautions Order Detail : Standard Precautions Order Detail : N/A IV Order Detail : 1 Oxygen Order Detail : 0 Nurse Collect Order Detail : 0 Lift/Transfer : Independent Central Line Order Detail : No Room Service : Appropriate Arterial Line : No Patient Needs Meds Crushed/Liquid : No Nona Finney Lpn - 07/08/2020 4:24 EDT Nutrition History Adaptive Feeding Equipment : Regular Oral Medication Administration : By mouth Eating Poorly Due to Decreased Appetite : No Unplanned Weight Loss in Past 3-6 Months : No Malnutrition Screening Tool Total(mal) : 0 Malnutrition Screening Tool Risk Level : Patient not at risk Nona Finney Lpn - 07/08/2020 4:24 EDT [place] Suicide Severity Rating Scale (C-SSRS) CSSRS Past Month Wish to be : No CSSRS Past Month Suicidal Thoughts : No CSSRS Lifetime Suicide Behavior : No Suicide Severity Rating Score : 0 Suicide Severity Rating : No Additional Care Required at this time Nona Finney Lpn - 07/08/2020 4:24 EDT Psychosocial History Does Someone Depend on You for Care? : No Do You Have a History of the Following? : Anxiety, Depression Currently in Unsafe Situation : No Nona Finney Lpn - 07/08/2020 4:24 EDT Sleep Apnea Risk Assmt Hx of Obstructive Sleep Apnea Diagnosis : No Snore Loudly : No Tired, Fatigued, or Sleepy During Day : No Observed Stopping Breathing During Sleep : No Have/Are Being Treated for Hypertension : No BMI Greater Than 35 kg/m2 : No Age over 50 Years Old : Yes Neck Circumference Greater Than 40 cm : No Gender Male : Yes STOP-BANG Sleep Apnea Risk Level Score : 2 Nona Finney Lpn - 07/08/2020 4:24 EDT Spiritual/Cultural Needs Significant Loss/Crisis in Past 3 Years : No Any Spiritual/Cultural Needs or Requests : No Nona Finney Lpn - 07/08/2020 4:24 EDT Valuables and Belongings Valuables and Belongings : Clothing, Personal items Clothing : Common streetwear Clothing Disposition : Bedside Personal Items : Cell phone, Wallet, Other: check book and keys Personal Items Disposition : Bedside Nona Finney Lpn - 07/08/2020 4:24 EDT Electronically signed by Brittni Gerardo Conversion Installation And Repair Technician Cerner at 12/27/2022 11:52 AM CDT documented in this encounter Plan of Treatment Not on file documented as of this encounter Visit Diagnoses Not on filedocumented in this encounter Additional Health Concerns Infection Onset Date Last Indicated Resolved Time MRSA (C) 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
--- OUTSIDE RECORDS SUMMARY | 2025-05-05 12:25 | XMS_ITS | Encounter Summary ---
Author Organization [employer] ([place], [place], [place], [place]) Address [address] [place] [address] Care Team Providers Care Gate Guard Name Role Phone Annalise Carter DO Primary Care Provider [phone] Chuck Mei PA-C Unavailable [phone] Encounter Details Date Type Department Care Team (Late st Contact Info) Description 07/10/2020 Transcribed Document [facility] Family Medicine [address] [place] [address] ProviderLars MD [address] [place] [address] Social History Tobacco Use Types [...] Cerner Conversion Note - Lars ProviderMD - 07/10/2020 2:00 AM CDT Cutter Hot Knife Details Entered On: 07/10/2020 0:28 EDT Performed On: 07/10/2020 2:00 EDT by Sravanthi Smyth RN-RESOURCE Order Details Transport Mode Order Detail : Ambulatory Isolation Precautions Order Detail : Standard Precautions Order Detail : N/A IV Order Detail : 1 Oxygen Order Detail : 0 Nurse Collect Order Detail : 0 Lift/Transfer : Independent Central Line Order Detail : No Room Service : Appropriate Arterial Line : No Patient Needs Meds Crushed/Liquid : No Sravanthi Smyth RN-RESOURCE - 07/10/2020 0:28 EDT Electronically signed by [facility], [facility] Conversion Lead Net Software Developer Cerner at 12/27/2022 11:46 AM CDT documented in this encounter Plan of Treatment Not on file documented as of this encounter Visit Diagnoses Not on filedocumented in this encounter Additional Health Concerns Infection Onset Date Last Indicated Resolved Time MRSA (C) 06/11/2023 06/11/2023 documented as of this encounter Care Teams Gate Guard Relationship Specialty Start Date End Date Annalise Carter, [address] [place] [address] PCP - General Family Medicine 06/06/23 Chuck Mei PA-C [address], [facility] [address] [place] [address] Cardiology 11/01/23 documented as of this encounter
--- OUTSIDE RECORDS SUMMARY | 2025-05-05 12:25 | XMS_ITS | Encounter Summary ---
Author Organization [employer] ([place], [place], [place], [place]) Address [address] [place] [address] Care Team Providers Care Candy Dipper Hand Name Role Phone Annalise Carter DO Primary Care Provider [phone] Chuck Mei PA-C Unavailable [phone] Encounter Details Date Type Department Care Team (Late st Contact Info) Description 07/10/2020 Transcribed Document [facility] Family Medicine [address] [place] [address] ProviderLars MD [address] [place] [address] Social History Tobacco Use Types [...] Conversion Note - Lars Jeffries MD - 07/10/2020 10:15 AM CDT Patient Education Materials Follows: Cough, Adult A cough helps to clear your throat and lungs. A cough may be a sign of an illness or another medical condition. An acute cough may only last 2?3 weeks, while a chronic cough may last 8 or more weeks. Many things can cause a cough. They include: ??? Germs (viruses or bacteria) that attack the airway. ??? Breathing in things that bother (irritate) your lungs. ??? Allergies. ??? Asthma. ??? Mucus that runs down the back of your throat (postnasal drip). ??? Smoking. ??? Acid backing up from the stomach into the tube that moves food from the mouth to the stomach (gastroesophageal reflux). ??? Some medicines. ??? Lung problems. ??? Other medical conditions, such as heart failure or a blood clot in the lung (pulmonary embolism). Follow these instructions at home: Medicines ??? Take dyyw-zqf-vtwtpiw and prescription medicines only as told by your doctor. ??? Talk with your doctor before you take medicines that stop a cough (coughsuppressants). Lifestyle ??? Do not smoke, and try not to be around smoke. Do not use any products that contain nicotine or tobacco, such as cigarettes, e-cigarettes, and chewing tobacco. If you need help quitting, ask your doctor. ??? Drink enough fluid to keep your pee (urine) pale yellow. ??? Avoid caffeine. ??? Do not drink alcohol if your doctor tells you not to drink. General instructions ??? Watch for any changes in your cough. Tell your doctor about them. ??? Always cover your mouth when you cough. ??? Stay away from things that make you cough, such as perfume, candles, campfire smoke, or cleaning products. ??? If the air is dry, use a cool mist vaporizer or humidifier in your home. ??? If your cough is worse at night, try using extra pillows to raise your head up higher while you sleep. ??? Rest as needed. ??? Keep all follow-up visits as told by your doctor. This is important. Contact a doctor if: ??? You have new symptoms. ??? You cough up pus. ??? Your cough does not get better after 2?3 weeks, or your cough gets worse. ??? Cough medicine does not help your cough and you are not sleeping well. ??? You have pain that gets worse or pain that is not helped with medicine. ??? You have a fever. ??? You are losing weight and you do not know why. ??? You have night sweats. Get help right away if: ??? You cough up blood. ??? You have trouble breathing. ??? Your heartbeat is very fast. These symptoms may be an emergency. Do not wait to see if the symptoms will go away. Get medical help right away. Call your local emergency services (911 in the [place] Do not drive yourself to the hospital. Summary ??? A cough helps to clear your throat and lungs. Many things can cause a cough. ??? Take idae-nfc-jjihhlb and prescription medicines only as told by your doctor. ??? Always cover your mouth when you cough. ??? Contact a doctor if you have new symptoms or you have a cough that does not get better or gets worse. This information is not intended to replace advice given to you by your health care provider. Make sure you discuss any questions you have with your health care provider. Document Released: 05/10/2012 Document Revised: 09/16/2019 Document Reviewed: 09/16/2019 [employer] Patient Education ? 2020 [employer]. Pulmonary Medicine Hemoptysis Hemoptysis is when you cough up blood. It can be mild or serious. If it is mild, you may cough up bloody spit and mucus (sputum). If you cough up 1?2 cups (240?480 mL) of blood within 24 hours (massive hemoptysis), it is an emergency. If you cough up blood, it is important to go and see your doctor. Follow these instructions at home: ??? Watch your condition for any changes. ??? Take mukv-fxq-bemskls and prescription medicines only as told by your doctor. ??? If you were prescribed an antibiotic medicine, take it as told by your doctor. Do not stop taking the antibiotic even if you start to feel better. ??? Go back to your normal activities as told by your doctor. Ask your doctor what activities are safe for you to do. ??? Do not use any products that contain nicotine or tobacco. These include cigarettes and e-cigarettes. If you need help quitting, ask your doctor. ??? Keep all follow-up visits as told by your doctor. This is important. Contact a doctor if: ??? You have a fever. ??? You cough up bloody spit and mucus. Get help right away if: ??? You cough up fresh blood or blood clots. ??? You have trouble breathing. ??? You have chest pain. This information is not intended to replace advice given to you by your health care provider. Make sure you discuss any questions you have with your health care provider. Document Released: 08/14/2013 Document Revised: 08/10/2018 Document Reviewed: 05/26/2017 Elsevier Patient Education ? 2020 [employer]. documented in this encounter Plan of Treatment Not on file documented as of this encounter Visit Diagnoses Not on filedocumented in this encounter Additional Health Concerns Infection Onset Date Last Indicated Resolved Time MRSA (C) 06/11/2023 06/11/2023 documented as of this encounter Care Teams Candy Dipper Hand Relationship Specialty Start Date End Date Annalise Carter, [address] [facility] [address] [place] [address] PCP - General Family Medicine 06/06/23 Chuck Mei PA-C [address], [facility] [address] [place] [address] Cardiology 11/01/23 documented as of this encounter
--- OUTSIDE RECORDS SUMMARY | 2025-05-05 12:25 | XMS_ITS | Encounter Summary ---
Author Organization [employer] ([place], [place], [place], [place]) Address [address] [place] [address] Care Team Providers Care Audit Consultant Name Role Phone Annalise Carter DO Primary Care Provider [phone] Chuck Mei PA-C Unavailable [phone] Encounter Details Date Type Department Care Team (Late st Contact Info) Description 08/28/2020 Transcribed Document [facility] Family Medicine [address] [place] [address] ProviderLars MD [address] [place] [address] Social History Tobacco Use Types [...] Conversion Note - Lars Jeffries MD - 08/28/2020 12:26 PM [employer] Patient: ROSARIO GREGG Age: 59 years Sex: Male : 1960 Associated Diagnoses: None Author: RED FLORES MD-[facility] Basic Information Registered Nurse Maternity: Red Flores MD Chief Complaint Chronic venous hypertension, varicose veins, Reflux History of Present Illness 59 year old male with history of CAD s/p CABG and subsequent stent, HTN, HLD, NIDDM, Obesity and chronic venous hypertension and varicose veins. LEVD in February revealed Reflux (report below). Patient has attempted conservative therapy; wearing graduated compression stockings 20/30 mmgHg since February of this year. However, he has continued to have some BLLE pain and has decided to pursue ablation & Sclerotherapy. He presents today for outpatient procedure; Right GSV laser ablation & sclerotherapy with Dr. Red Flores. Review of Systems Constitutional: Negative except as [...] documented in history of present illness. Neurologic: Alert and oriented X4. Psychiatric: Negative except as documented in history of present illness. Health Status No qualifying data available Home Medications (18) Active aspirin 81 mg oral delayed release tablet 81 mg = 1 Tab, Oral, Daily atorvastatin 40 mg oral tablet 40 mg = 1 Tab, Oral, At Bedtime Brilinta (ticagrelor) 90 mg oral tablet 90 mg = 1 Tab, Oral, BID Combivent Respimat CFC free 100 mcg-20 mcg/inh inhalation aerosol 1 Puff, Inhalation, QID DuoNeb 0.5 mg-2.5 mg/3 mL inhalation solution 3 mL, PRN, Nebulized Inhalation, Q6H famotidine 20 mg oral tablet 20 mg = 1 Tab, Oral, Daily furosemide 20 mg oral tablet 20 mg = 1 Tab, Oral, Daily Jardiance 10 mg oral tablet 10 mg = 1 Tab, Oral, QAM Lantus 100 units/mL subcutaneous solution 75 Units, SubCutaneous, Daily lisinopril 5 mg oral tablet 5 mg = 1 Tab, Oral, Daily metFORMIN 1000 mg oral tablet 1,000 mg = 1 Tab, Oral, Daily Metoprolol Tartrate 50 mg oral tablet 50 mg = 1 Tab, Oral, BID multivitamin 1 Tab, Oral, Daily Singulair 10 mg oral tablet 10 mg = 1 Tab, Oral, At Bedtime Symbicort 160 mcg-4.5 mcg/inh inhalation aerosol 2 Puff, Inhalation, BID tamsulosin 0.4 mg oral capsule 0.4 mg = 1 Cap, Oral, Daily Trulicity Pen 1.5 mg/0.5 mL subcutaneous solution 0.75 mg, SubCutaneous, Vitamin D3 5000 units oral capsule 5,000 Int Units = 1 Cap, Oral, Daily Allergies: Allergic Reactions (Selected) Severity Not Documented Morphine- No reactions were documented. Current medications: (Selected) Prescriptions Prescribed DuoNeb 0.5 mg-2.5 mg/3 mL inhalation solution: 3 mL, Nebulized Inhalation, Q6H, PRN: as needed for shortness of breath or wheezing, 90 mL, 1 Refill(s) Documented Medications Documented Brilinta (ticagrelor) 90 mg [...] 40 mg oral tablet: 1 Tab, Oral, At Bedtime, for 90 Day(s), 90 Tab, 0 Refill(s) famotidine 20 mg oral [...] for 90 Day(s), 90 Cap, 0 Refill(s) Problem list: All Problems Arthritis / [id number] / Confirmed At risk for sleep apnea / 66557790 / Confirmed CAD - Coronary artery disease / [id number] / Confirmed Cataract / [id number] / Confirmed Chronic anxiety / 693823481 / Confirmed Chronic depression / 498407754 / Confirmed Coronary artery disease / 2389526272 / Confirmed Diabetes mellitus / 679673179 / Confirmed Diabetes mellitus type II / 12091064 / Confirmed Disorder of prostate / 08945398 / Confirmed Glaucoma / 66185025 / Confirmed Hard of hearing / 678063483 / Confirmed Heart valve / 324999020 / Confirmed History of obstructive sleep apnea / 53502710 / Confirmed HLD - Hyperlipidemia / 118814674 / Confirmed HTN (hypertension) / [id number] / Confirmed Hyperlipidemia / 32637528 / Confirmed Hypertension / 56349745 / Confirmed Pneumonia / 786957874 / Confirmed Renal calculus / 074109429 / Confirmed Sleep apnea / 388358760 / Confirmed Stented coronary artery / 3113710196 / Confirmed Histories No education data available. Social & [...] History: Active CAD - Coronary artery disease ([id number]) HTN (hypertension) ([id number]) HLD - Hyperlipidemia (346421118) Diabetes mellitus (237263287) Family History: Dementia Father Mother Procedure history: cabg. Physical Examination VS/Measurements No qualifying data available General: Alert and oriented, No acute distress. Eye: Pupils are equal, round and reactive to light, Vision unchanged. HENT: Normocephalic, Oral mucosa is moist. Neck: Supple, Non-tender, No carotid bruit, No jugular venous distention. Respiratory: Lungs are clear to auscultation, Respirations are non-labored, Symmetrical chest wall expansion. Cardiovascular: Normal rate, Regular rhythm, No murmur, +buffalo hump, + stemmer sign. + prominent varicosity R calf. + scattered reticular veins. . Gastrointestinal: Soft, Non-distended, Normal bowel sounds. Musculoskeletal: Normal range of motion, Normal strength. Integumentary: Warm, Dry, BLLE scatter reticular veins. Neurologic: Alert, Oriented. Psychiatric: Cooperative, Appropriate mood & affect. Review / Management [facility] 02/19/2020 Study was performed with patient in the standing position. RIGHT: No evidence of deep or superficial venous thrombosis. Diminuitive GSV. Vessels leaves fascia at the mid calf level continuing as a varicose vein. Positive for reflux 5.8 secs in the prox SFJx ( 0.99 cm). Positive for reflux 6.0 secs in the prox GSV ( 0.78 cm). Positive for reflux 3.0 secs in the distal at knee GSV ( 0.76 cm). Positive for reflux 1.1 secs in the mid calf GSV ( 0.59 cm). Positive for reflux 4.4 sec in a varicosity at the distal calf ( 1.4 cm) continuing up the leg and stopping at the prox calf GSV. Positive for reflux 3.7 sec in a varicosity at the mid calf ( cm) continuing up the leg and stopping at the Mid SSV . Positive for reflux 2.3 secs in the Mid SSV ( 0.34 cm). Segment is < 5cm in length. VCSS score: 5 . CEAP:C3, Ep, As, Pr LEFT: No evidence of deep or superficial venous thrombosis. No evidence of reflux in the deep system. GSV is surgically absent. No evidence of reflux noted in the SSV or saphenopopliteal jx. VCSS score: 2 . CEAP:C3, En, An, Pr,o Results review: No qualifying data available. Impression and Plan IMPRESSION: Venous hypertension, varicose veins, Reflux Greater than 6 months of graduated compression stockings CAD h.o CABG and subsequent stent HTN HLD DMII Obesity PLAN; Right GSV laser ablation & sclerotherapy Electronically signed by [employer], [facility] Conversion Usability Engineer Cerner at 12/27/2022 12:10 PM CDT documented in this encounter Plan of Treatment Not on file documented as of this encounter Visit Diagnoses Not on filedocumented in this encounter Additional Health Concerns Infection Onset Date Last Indicated Resolved Time MRSA (C) 06/11/2023 06/11/2023 documented as of this encounter Care Teams Audit Consultant Relationship Specialty Start Date End Date Annalise Carter, [address] [facility] [address] [place] [address] PCP - General Family Medicine 06/06/23 Chuck Mei PA-C [address], [facility] [address] [place] [address] Cardiology 11/01/23 documented as of this encounter
--- OUTSIDE RECORDS SUMMARY | 2025-05-05 12:25 | XMS_ITS | Encounter Summary ---
Author Organization [employer] ([place], [place], [place], [place]) Address [address] [place] [address] Care Team Providers Care Battery Installer Name Role Phone Annalise Muro DO Primary Care Provider Chuck Mei PA-C Unavailable [phone] Encounter Details Date Type Department Care Team (Late st Contact Info) Description 09/17/2020 Transcribed Document [facility] [place] Family Medicine Formerly [facility] [place] [address] ProviderLars MD [address] [place] [id number] Social History Tobacco Use Types Packs/Day [...] Cerner Conversion Note - Lars ProviderMD - 09/17/2020 5:10 PM 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 [address] ROSARIO GREGG :1960 Visit Time:09/17/2020 Your Visit Summary Your Care Team Admitting Physician - RED SALDANA MD-CAR Attending Physician - RED SALDANA MD-CAR Primary Care Physician - ANNALISE MURO DO-[facility] Referring Physician - SHANA, RED S, MD-CAR Your Diagnosis Chronic venous hypertension (idiopathic) with inflammation of right lower extremity, Chronic venous hypertension (idiopathic) with inflammation of right lower extremity Localized edema Lymphedema, not elsewhere classified Discharge Vitals Temperature 36.4 ??C Heart Rate (Monitored) 80 Respiratory Rate 19 Blood Pressure 112/55 What to do next Instructions From Your Care Team Diet after Discharge: Resume usual diet as tolerated Activity after Discharge: Rest and relax today, No strenuous activity, _, _ Driving Restrictions: No driving for 24 hours. Showering/Bathing: _, _ Medications: No changes to your current home medications., _, _ Dressing Instructions: _, _, _ Discharge Activity: Discharge Activity: Activity as tolerated Diet: Discharge Diet: Resume usual diet as tolerated Follow-Up Appointments Follow Up with RED SALDANA MD-CAR When Within 2 to 3 days Comments Follow-up as instructed Where: [address] [place] [address]- Medications What How Much When Instructions Next Dose albuterol-ipratropium (Combivent Respimat CFC free 100 mcg-20 mcg/ inh inhalation aerosol) 1 Puff(s) Inhalation Four Times A Day Duration: 30 Day(s) ticagrelor (Brilinta) 60 Milligram(s) Oral Two Times A Day aspirin (aspirin 81 mg oral delayed release tablet) 1 Tablet(s) Oral Every Day atorvastatin (atorvastatin 40 mg oral tablet) 1 Tablet(s) Oral At Bedtime Duration: 90 Day(s) dulaglutide (Trulicity Pen 1.5 mg/ 0.5 mL subcutaneous solution) 0.75 Milligram(s) SubCutaneous Duration: 30 Day(s) empagliflozin (Jardiance 10 mg oral tablet) 1 Tablet(s) Oral Every Morning Duration: 90 Day(s) furosemide (furosemide 20 mg oral tablet) 1 Tablet(s) Oral Every Day Duration: 90 Day(s) ibuprofen See instructions 800 mg insulin glargine (Lantus 100 units/ mL subcutaneous solution) 75 Unit(s) SubCutaneous Every Day Duration: 90 Day(s) lisinopril (lisinopril 5 mg oral tablet) 1 Tablet(s) Oral Every Day metFORMIN (metFORMIN 1000 mg oral tablet) 1 Tablet(s) Oral Two Times A Day metoprolol (Metoprolol Tartrate 50 mg oral tablet) 1 Tablet(s) Oral Two Times A Day montelukast (Singulair 10 mg oral tablet) 1 Tablet(s) Oral At Bedtime Duration: 90 Day(s) multivitamin 1 Tablet(s) Oral Every Day multivitamin with minerals (Multi-Day Plus Minerals) Oral Every Day omega-3 polyunsaturated fatty acids (Nature's Bounty Red Krill Oil) Oral Two Times A Day tamsulosin (tamsulosin 0.4 mg oral capsule) 1 Capsule(s) Oral Every Day Duration: 90 Day(s) ubiquinone (Co-Q10) See instructions Oral Daily Take your medications faithfully. Do NOT skip [...] This Visit No Immunizations Found Education Materials Venogram, Care After This sheet gives you information about how to care for yourself after your procedure. Your health care provider may also give you more specific instructions. If you have problems or questions, contact your health care provider. What can I expect after the procedure? After the procedure, it is common to have: ??? Bruising or mild discomfort in the area where the IV was inserted (insertion site). Follow these instructions at home: Eating and drinking ??? Follow instructions from your health care provider about eating or drinking restrictions. ??? Drink a lot of fluids for the first several days after the procedure, as directed by your health care provider. This helps to wash (flush) the contrast out of your body. Examples of healthy fluids include water or low-calorie drinks. General instructions ??? Check your IV insertion area every day for signs of infection. Check for: ? Redness, swelling, or pain. ? Fluid or blood. ? Warmth. ? Pus or a bad smell. ??? Take mxxk-vdc-exugdjd and prescription medicines only as told by your health care provider. ??? Rest and return to your normal activities as told by your health care provider. Ask your health care provider what activities are safe for you. ??? Do not drive for 24 hours if you were given a medicine to help you relax (sedative), or until your health care provider approves. ??? Keep all follow-up visits as told by your health care provider. This is important. Contact a health care provider if: ??? Your skin becomes itchy or you develop a rash or hives. ??? You have a fever that does not get better with medicine. ??? You feel nauseous. ??? You vomit. ??? You have redness, swelling, or pain around the insertion site. ??? You have fluid or blood coming from the insertion site. ??? Your insertion area feels warm to the touch. ??? You have pus or a bad smell coming from the insertion site. Get help right away if: ??? You have difficulty breathing or shortness of breath. ??? You develop chest pain. ??? You faint. ??? You feel very dizzy. These symptoms may represent a serious problem that is an emergency. Do not wait to see if the symptoms will go away. Get medical help right away. Call your local emergency services (911 in the [place] Do not drive yourself to the hospital. Summary ??? After your procedure, it is common to have bruising or mild discomfort in the area where the IV was inserted. ??? You should check your IV insertion area every day for signs of infection. ??? Take jprm-qld-hxirpqh and prescription medicines only as told by your health care provider. ??? You should drink a lot of fluids for the first several days after the procedure to help flush the contrast from your body. This information is not intended to replace advice given to you by your health care provider. Make sure you discuss any questions you have with your health care provider. Document Released: 06/18/2014 Document Revised: 08/10/2018 Document Reviewed: 07/22/2017 [employer] Patient Education ?? 2020 [employer] Moderate Conscious Sedation, Adult, Care After These instructions provide you with information about caring for yourself after your procedure. Your health care provider may also give you more specific instructions. Your treatment has been planned according to current medical practices, but problems sometimes occur. Call your health care provider if you have any problems or questions after your procedure. What can I expect after the procedure? After your procedure, it is common: ??? To feel sleepy for several hours. ??? To feel clumsy and have poor balance for several hours. ??? To have poor judgment for several hours. ??? To vomit if you eat too soon. Follow these instructions at home: For at least 24 hours after the procedure: ??? Do not: ? Participate in activities where you could fall or become injured. ? Drive. ? Use heavy machinery. ? Drink alcohol. ? Take sleeping pills or medicines that cause drowsiness. ? Make important decisions or sign legal documents. ? Take care of children on your own. ??? Rest. Eating and drinking ??? Follow the diet recommended by your health care provider. ??? If you vomit: ? Drink water, juice, or soup when you can drink without vomiting. ? Make sure you have little or no nausea before eating solid foods. General instructions ??? Have a responsible adult stay with you until you are awake and alert. ??? Take mvbj-dji-gqikpco and prescription medicines only as told by your health care provider. ??? If you smoke, do not smoke without supervision. ??? Keep all follow-up visits as told by your health care provider. This is important. Contact a health care provider if: ??? You keep feeling nauseous or you keep vomiting. ??? You feel light-headed. ??? You develop a rash. ??? You have a fever. Get help right away if: ??? You have trouble breathing. This information is not intended to replace advice given to you by your health care provider. Make sure you discuss any questions you have with your health care provider. Document Released: 06/18/2014 Document Revised: 08/10/2018 Document Reviewed: 12/17/2016 [employer] Patient Education ?? 2020 [employer] It???s Cold and Flu Season ??? How are you protecting yourself? The start of each year is often met with the peak of cold and flu season. This year is no different except that we are facing the new strain of coronavirus, COVID-19, and the widespread media attention this public health outbreak is causing. It is understandable that many are feeling overwhelmed by the thought of catching coronavirus and are concerned about how to best care for ourselves and our loved ones during this challenging time. Take comfort in knowing there are simple things you can do each and every day to help ensure your health is protected. Scrub a dub! Wash your hands! As simple as this sounds, it truly is the most effective way to stop the spread of germs. Be sure to use soap, and to make sure you are being thorough enough, sing the ???Happy Birthday?? song which is just the right length to ensure a thorough cleaning of your hands. Wash all parts of your hands, including the ???webs?? between your fingers and thumbs. When without, use a squeeze! If you are unable to get to a sink for soap and water to thoroughly wash your hands, use hand hand stripper. While handwashing is best, hand hand stripper helps to reduce the spread of germs when you are out and about. Have hand hand stripper in several locations so you can always have some on hand ??? think about placing some bottles in your car, your purse, your suitcase, the diaper bag, or even in your coat pocket. Don???t rub, don???t touch! As tempting as it is to rub those scratchy eyes during allergy season or to rub a runny nose, don???t. In fact, if you can, try to avoid touching your face as much as possible, especially with unclean hands. Our eyes, nose, and mouth are easy access points for germs to enter our bodies. When in doubt, don???t go out! If you are feeling under the weather, stay home. If your child is feeling sick, keep them home. It is so important to not only rest when you are starting to get sick or are already under the weather, but also staying home and away from others helps to keep people from also getting sick. Don???t [place] It! Sneezing this time of year is part of life, especially if you suffer from allergies or do have the cold or flu. To help minimize the spread of germs from sneezing or coughing, use a Kleenex or your elbow to protect against rogue spray and to help keep your hands clean. And remember, most people will have a runny nose, coughs and sneezes these days either from seasonal allergies, the cold or the flu, but if you do feel ill or feel like you need some help to feel better, please contact your Primary Care Provider to determine the best course of treatment for you which may include home care for mild cases or making an appointment to be seen to address more moderate needs. To find a PCP near you, please visit HYPERLINK [email or web address]. November 15, 2019 FAQ ??? Patient COVID-19 testing Why do I need a COVID-19 test in the hospital? We are testing patients as part of an overall effort to ensure the safety of our patients, staff and providers, and to limit the spread of the novel coronavirus throughout our community. What happens if I test positive for COVID-19? Any scheduled elective procedure will be postponed and treatment for the coronavirus will follow the protocol that is currently in place. If you are admitted to the hospital, we will use droplet precautions for patients who test positive for COVID-19. If I???m a patient, should I wear a mask? Yes. When you are in your room alone, you may remove your mask. When anyone enters your room, you should put your mask back on. Will I be allowed to have visitors if I am admitted to the hospital with COVID-19? As part of the standard care for COVID-19 patients, visitors will not be allowed to protect them from potential exposure to the novel coronavirus. If you have a health care support person with you during a pending test and the test comes back positive, your visitor will be asked to leave and follow up with their primary care provider. Public health may reach out to them to complete contact tracing. Will my status as COVID-19 positive be reported? Because COVID-19 is a public health threat, all positive cases are reported through the local health department and the [place] Department for Public Health. Those organizations are responsible for monitoring public health threats. What is contact tracing? The public health departments at the state and local levels use contact tracing to prevent the spread of infectious disease. They will work to identify people who have COVID-19 and their contacts who may have been exposed. What does contact tracing involve? Typically, a contact tracer will interview patients with COVID-19 to identify everyone with whom they have had close contact during the time they may have been infectious and then notify those contacts of potential exposure and refer them for testing. They may monitor the contacts for symptoms of COVID-19 and connect the contacts with services they may need during a recommended self-quarantine period. The patient???s name is not revealed to anyone during the contact tracing interviews, even if a contact asks. Who would be considered a ???close contact?? ? According to the CDC, a close contact is defined as someone who was within 6 feet of an infected person for at least 15 minutes, starting from 48 hours before the person began feeling sick until the time the patient was isolated. What can a close contact expect during this process? A contact tracer from the health department will contact that person to inform them they have been exposed to COVID-19. If that happens, the contact should self-quarantine for 14 days, starting from the last date of possible exposure, monitor their health, wear a face covering and maintain social distancing ??? at least 6 feet from others at all times. Should a close contact seek medical care? Close contacts should take their temperature twice a day, watch for COVID-19 symptoms and notify the health department if they develop symptoms. They should also notify people with whom they have had recent close contact if they become ill. They should seek medical care if symptoms worsen or become severe, including trouble breathing, persistent pain or pressure in the chest, confusion, inability to wait or stay awake, or bluish lips or face. Steps to Help Prevent the Spread of COVID-19 if You Are Sick In all cases, follow the guidance of your health care provider and local health department. Your local health department determines the length of time for quarantine and will notify you with detailed information. Monitor your symptoms. Common symptoms of COVID-19 include fever, fatigue, diarrhea/vomiting, loss of taste and smell, and cough. Trouble breathing is a more serious symptom that means you should get medical attention. If you develop emergency warning signs for COVID-19 get medical attention immediately. Emergency warning signs include*: ??? Trouble breathing ??? Persistent pain or pressure in the chest ??? New confusion or inability to arouse ??? Bluish lips or face *This list is not all inclusive. Please consult your medical provider for any other symptoms that are severe or concerning. Call 911 if you have a medical emergency. If you have a medical emergency and need to call 911, notify the medart operator that you have, or think you might have, COVID-19. If possible, put on a facemask before medical help arrives. Stay home except to get medical care. ??? Stay home: Most people with COVID-19 have mild illness and can recover at home without medical care. Do not leave your home, except to get medical care. Do not visit public areas. ??? Stay in touch with your doctor. Call before you get medical care. Be sure to get care if you have trouble breathing, or have any other emergency warning signs, or if you think it is an emergency. Separate yourself from other people in your home; this is known as home isolation. ??? Stay away from others: As much as possible, stay away from others. You should stay in a specific ???sick room?? if possible, and away from other people in your home. Use a separate bathroom, if available. Call ahead before visiting your doctor. ??? Call ahead: Many medical visits for routine care are being postponed or done by phone or telemedicine. If you have a medical appointment that cannot be postponed, call your doctor's office, and tell them you have or may have COVID-19. This will help the office protect themselves and other patients. If you are sick, wear a facemask in the following situations, if available. ??? If you are sick: You should wear a facemask, if available, when you are around other people (including before you enter a health care provider???s office). ??? If you are caring for others: If the person who is sick is not able to wear a facemask (for example, because it causes trouble breathing), then as their caregiver, you should wear a facemask when in the same room with them. Visitors, other than caregivers, are not recommended. Cover your coughs and sneezes. ??? Cover: Cover your mouth and nose with a tissue when you cough or sneeze. ??? Dispose: Throw used tissues into a lined trash can. ??? Wash hands: Immediately wash your hands with soap and water for at least 20 seconds. If soap and water are not available, clean your hands with an alcohol-based hand hand stripper that contains at least 60% alcohol. Clean your hands often. ??? Wash hands: Wash your hands often with soap and water for at least 20 seconds when visibly dirty. This is especially important after blowing your nose, coughing or sneezing, and going to the bathroom, and before eating or preparing food. ??? Hand hand stripper: Use an alcohol-based hand hand stripper with at least 60% alcohol, covering all surfaces of your hands and rubbing them together until they feel dry. ??? Avoid touching: Avoid touching your eyes, nose and mouth with unwashed hands. Avoid sharing personal household items. ??? Do not share: Do not share dishes, drinking glasses, cups, eating utensils, towels or bedding with other people in your home. ??? Wash thoroughly after use: After using these items, wash them thoroughly with soap and water or put them in the day care attendant. Clean all high-touch surfaces every day. Clean high-touch surfaces in your isolation area (???sick room?? and bathroom) every day; let a caregiver clean and disinfect high-touch surfaces in other areas of the home. ??? Clean and disinfect: Routinely clean high-touch surfaces in your ???sick room?? and bathroom. Let someone else clean and disinfect surfaces in common areas, but not your bedroom and bathroom. ? If a caregiver or other person needs to clean and disinfect a sick person???s bedroom or bathroom, they should do so on an as-needed basis. The caregiver/other person should wear a mask and wait as long as possible after the sick person has used the bathroom. ? High-touch surfaces include phones, remote controls, counters, tabletops, doorknobs, bathroom fixtures, toilets, keyboards, tablets and bedside tables. ??? Clean and disinfect areas that may have blood, stool, or body fluids on them. ??? Household pleating machine operator and disinfectants: Clean the area or item with soap and water or another detergent if it is dirty. Then, use a household disinfectant. ??? Be sure to follow the instructions on the label to ensure safe and effective use of the product. Many products recommend keeping the surface wet for several minutes to ensure germs are killed. Many also recommend precautions such as wearing gloves and making sure you have good ventilation during use of the product. ??? Most EPA-registered household disinfectants should be effective. A full list of disinfectants can be found here: https://www.epa.gov/pesticide-registration/ilni-a-cidonjdlutrum-vrd-xoqjbwg-vs rs-cov-2 Emergency Awareness and Preventative Care STROKE is an EMERGENCY Every Minute Counts Act FAST and Check for these signs: FACE Does the face look uneven? ARM Does one arm drift down? SPEECH Does their speech sound strange? TIME Call at any sign of stroke Stroke Risk Factors Atrial Fibrillation (irregular heartbeat) Diabetes Family history of stroke Heart Disease Heavy alcohol use High Blood Pressure High Cholesterol Physical inactivity and obesity Smoking Cigarette Smoking The facts are clear, cigarette smoking will shorten your life. Smoking can cause many illnesses along the way. As a healthcare provider, we recommend that you stop smoking. Assistance with quitting is available by contacting 9-065-IYXY-NOW. This is a free resource providing counseling, support, and referral. Or you may contact your personal physician. National Suicide Prevention Lifeline: The National Suicide Prevention Lifeline is a national network of local crisis centers that provides free and confidential emotional support to people in suicidal crisis or emotional distress 24 hours a day, 7 days a week. Don't Wait! Stop a Heart Attack Before it Starts What is a heart attack? A heart attack is damage or to a part of the heart from severely decreased or lack of blood flow to the heart. Over time, arteries can become narrow from the buildup of fat and cholesterol, which is called plaque. The plaque can rupture causing a blood clot to form. When the blood clot forms, the artery can become severely narrowed or completely blocked, causing a heart attack. Heart attack is the leading cause of in the [place]. 85% of muscle damage occurs within the first 2 hours. Delay in the recognition of heart attack symptoms increases the chances of . Know the early symptoms of a heart attack: Nausea Feeling of fullness in chest Jaw Pain Pain that travels down one or both arms Fatigue/being tired Anxiety Back Pain Chest pressure, squeezing, or discomfort Shortness of breath Sweating, or a cold sweat Feeling of impending doom There are unusual signs of a heart attack, too! Women, the elderly, and diabetics may present with atypical symptoms: Fainting/dizziness Weakness Confusion Risk Factors for a Heart Attack Some heart disease risk factors, such as age and family history, cannot be changed. Others, like smoking and lack of exercise, can be changed. Smoking High Cholesterol High Blood Pressure Family History Obesity Age Gender (Males are at higher risk) Lack of Exercise Diabetes Diet Stress Excessive Alcohol Intake If you or someone you know is experiencing the signs and symptoms of a heart attack, DON???T DELAY. Call immediately and seek help. If someone collapses, perform CPR! Do not attempt to drive if you are having symptoms of heart attack. Hands-Only CPR Why Hands-Only CPR? Hands-Only CPR has been shown to be as effective as conventional CPR for cardiac arrests that occur outside of a hospital. Survival depends on immediately receiving CPR from someone nearby. How do you perform Hands-Only CPR? There are two easy steps: Call if you see a teen or adult collapse Push hard and fast in the center of the chest at a beat of 100 beats per minute. Save a life! 4 WAYS TO GET AHEAD OF SEPSIS SEPSIS is a MEDICAL EMERGENCY. Time matters! Infections put you and your family at risk for a life-threatening condition called sepsis. Sepsis is the body's extreme response to an infection. It is life-threatening, and without timely treatment, sepsis can rapidly lead to tissue damage, organ failure, and . Sepsis happens when an infection you already have-in your skin, lungs, urinary tract or somewhere else-triggers a chain reaction throughout your body. 1 PREVENT INFECTIONS Take good care of chronic conditions. Talk to your doctor about getting the recommended vaccines. 2 PRACTICE GOOD HYGIENE Wash your hands frequently. Keep cuts or open sores clean and covered until they are healed. 3 KNOW THE SYMPTOMS Confusion or disorientation Shortness of breath High heart rate Fever, shivering, or feeling very cold Extreme pain or discomfort Clammy or sweaty skin 4 ACT FAST Get medical care IMMEDIATELY if you suspect sepsis or if you have an infection that is not getting better or is getting worse. To learn more about sepsis and how to prevent infections, visit www.cdc.gov/sepsis. Test Results Laboratory or Other Results This Visit (last charted value for your 09/17/2020 visit) No Laboratory or Other Results This Visit Patient Name:ROSARIO GREGG I have received and understand this information and was given the opportunity to ask questions. Patient/Clinical Educator Name: Patient/Clinical Educator Signature: Relationship to Patient: Clinician/Hospital Clinical Educator Signature: Date: Electronically signed by Akin, [facility] Conversion City Planning Aide Cerner at 12/27/2022 12:09 PM CDT documented in this encounter Plan of Treatment Not on file documented as of this encounter Visit Diagnoses Not on filedocumented in this encounter Additional Health Concerns Infection Onset Date Last Indicated Resolved Time MRSA (C) 06/11/2023 06/11/2023 documented as of this encounter Care Teams Battery Installer Relationship Specialty Start Date End Date Annalise Muro, [address] [place] [address] PCP - General Family Medicine 06/06/23 Chuck Mei PA-C [address], [facility] [address] [place] [address] Cardiology 11/01/23 documented as of this encounter
--- OUTSIDE RECORDS SUMMARY | 2025-05-05 12:25 | XMS_ITS | Encounter Summary ---
Author Organization [employer] ([place], [place], [place], [place]) Address [address] [place] [address] Care Team Providers Care Black Mill Operator Name Role Phone Annalise Muro DO Primary Care Provider [phone] Chuck Mei PA-C Unavailable [phone] Encounter Details Date Type Department Care Team (Late st Contact Info) Description 08/28/2020 Transcribed Document [facility] [place] [address] ProviderLars MD [address] [place] [address] Social History Tobacco Use Types Packs/Day [...] Cerner Conversion Note - Lars ProviderMD - 08/28/2020 4:25 PM 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 [address] ROSARIO GREGG :1960 Visit Time:08/28/2020 Your Visit Summary Your Care Team Admitting Physician - RED BARNEY MD-CAR Attending Physician - RED BARNEY MD-CAR Primary Care Physician - ANNALISE MURO DO-[facility] Referring Physician - RED BARNEY MD-CAR Your Diagnosis Chronic venous hypertension (idiopathic) with inflammation of right lower extremity, Chronic venous hypertension (idiopathic) with inflammation of right lower extremity Discharge Vitals Temperature 36.1 ??C Heart Rate (Monitored) 68 Respiratory Rate 18 Blood Pressure 142/80 What to do next Follow-Up Appointments Follow Up with RED BARNEY MD-CAR When Comments keep appointment with Dr. Barney here at the hospital Monday09/01/20 at 12:00 pm Where: [address] [place] [address] [place] [address]- Medications What How Much When Instructions Next Dose albuterol-ipratropium (Combivent Respimat CFC free 100 mcg-20 mcg/ inh inhalation aerosol) 1 Puff(s) Inhalation Four Times A Day Duration: 30 Day(s) albuterol-ipratropium (DuoNeb 0.5 mg-2.5 mg/ 3 mL inhalation solution) 3 Milliliter(s) Nebulized Inhalation Every 6 Hours as needed for as needed for shortness of breath or wheezing aspirin (aspirin 81 mg oral delayed release tablet) 1 Tablet(s) Oral Every Day atorvastatin (atorvastatin 40 mg oral tablet) 1 Tablet(s) Oral At Bedtime Duration: 90 Day(s) budesonide-formoterol (Symbicort 160 mcg-4.5 mcg/ inh inhalation aerosol) 2 Puff(s) Inhalation Two Times A Day Duration: 30 Day(s) cholecalciferol (Vitamin D3 5000 units oral capsule) 1 Capsule(s) Oral Every Day with food dulaglutide (Trulicity Pen 1.5 mg/ 0.5 mL subcutaneous solution) 0.75 Milligram(s) SubCutaneous Duration: 30 Day(s) empagliflozin (Jardiance 10 mg oral tablet) 1 Tablet(s) Oral Every Morning Duration: 90 Day(s) famotidine (famotidine 20 mg oral tablet) 1 Tablet(s) Oral Every Day Duration: 30 Day(s) furosemide (furosemide 20 mg oral tablet) [...] Oral Every Day omega-3 polyunsaturated fatty acids (AMVONET's Bounty Red Krill Oil) Oral Two Times A Day tamsulosin (tamsulosin 0.4 mg oral capsule) 1 Capsule(s) Oral Every Day Duration: 90 Day(s) ticagrelor (Brilinta (ticagrelor) 90 mg oral tablet) 1 Tablet(s) Oral Two Times A Day Duration: 90 Day(s) ubiquinone (Co-Q10) See instructions Oral Daily PLEASE CONTINUE ALL MEDS ORDERED BY YOUR PHYSICIAN Take your medications faithfully. Do NOT skip [...] morphine Immunizations This Visit No Immunizations Found Stroke/TIA Instructions Individualized Stroke Risk Factors Individualized Stroke Risk Factors *Q: Coronary artery disease, Heart disease, High cholesterol, Hypertension/High blood pressure Stroke/TIA Signs/Symptoms to Report Immediately: Sudden onset difficulty speaking, Sudden onset difficulty understanding speech, Sudden onset change in vision, Sudden onset weakness particulary on one side of the body, Sudden onset numbness/tingling, Sudden severe headache, Sudden dizziness or trouble with gait, Call : EMS activation is crucial Mutually Agreed Upon Goals My LDL Level: My LDL Level: Education Materials What to do if you are sick with coronavirus disease 2019 (COVID-19) If you are sick with COVID-19 or suspect you are infected with the virus that causes COVID-19, follow the steps below to help prevent the disease from spreading to people in your home and community. Missing Image - the embedded image is not supported COVID-19 and Animals for more information. Call ahead before visiting your doctor If you have a medical appointment, call the healthcare provider and tell them that you have or may have COVID-19. This will help the healthcare provider???s office take steps to keep other people from getting infected or exposed. Wear a facemask You should wear a facemask when you are around other people (e.g., sharing a room or vehicle) or pets and before you enter a healthcare provider???s office. If you are not able to wear a facemask (for example, because it causes trouble breathing), then people who live with you should not stay in the same room with you, or they should wear a facemask if they enter your room. Cover your coughs and sneezes Cover your mouth and nose with a tissue when you cough or sneeze. Throw used tissues in a lined trash can; immediately wash your hands with soap and water for at least 20 seconds or clean your hands with an alcohol-based hand spanish literature professor that contains at least 60 to 95% alcohol, covering all surfaces of your hands and rubbing them together until they feel dry. Soap and water should be used preferentially if hands are visibly dirty. Avoid sharing personal household items You should not share dishes, drinking glasses, cups, eating utensils, towels, or bedding with other people or pets in your home. After using these items, they should be washed thoroughly with soap and water. Clean your hands often Wash your hands often with soap and water for at least 20 seconds. If soap and water are not available, clean your hands with an alcohol-based hand spanish literature professor that contains at least 60% alcohol, covering all surfaces of your hands and rubbing them together until they feel dry. Soap and water should be used preferentially if hands are visibly dirty. Avoid touching your eyes, nose, and mouth with unwashed hands. Clean all ???high-touch?? surfaces every day High touch surfaces include counters, tabletops, doorknobs, bathroom fixtures, toilets, phones, keyboards, tablets, and bedside tables. Also, clean any surfaces that may have blood, stool, or body fluids on them. Use a household cleaning spray or wipe, according to the label instructions. Labels contain instructions for safe and effective use of the cleaning product including precautions you should take when applying the product, such as wearing gloves and making sure you have good ventilation during use of the product. Monitor your symptoms Seek prompt medical attention if your illness is worsening (e.g., difficulty breathing). Before seeking care, call your healthcare provider and tell them that you have, or are being evaluated for, COVID-19. Put on a facemask before you enter the facility. These steps will help the healthcare provider???s office to keep other people in the office or waiting room from getting infected or exposed. Ask your healthcare provider to call the local or state health department. Persons who are placed under active monitoring or facilitated self-monitoring should follow instructions provided by their local health department or occupational health professionals, as appropriate. If you have a medical emergency and need to call 911, notify the dispatch personnel that you have, or are being evaluated for COVID-19. If possible, put on a facemask before emergency medical services arrive. Discontinuing home isolation Patients with confirmed COVID-19 should remain under home isolation precautions until the risk of secondary transmission to others is thought to be low. The decision to discontinue home isolation precautions should be made on a obhe-hw-rmbe basis, in consultation with healthcare providers and state and local health departments. For more information: HYPERLINK http://www.cdc.gov/COVID19 www.cdc.gov/COVID19 DISCLAIMER: COVID-19 information is rapidly changing and documents will be updated accordingly. November 15, 2019 It???s Cold and Flu Season ??? How [...] to thoroughly wash your hands, use hand spanish literature professor. While handwashing is best, hand spanish literature professor helps to reduce the spread of germs when you are out and about. Have hand spanish literature professor in several locations so you can always [...] keep people from also getting sick. Don???t [place] It! Sneezing this time of year is [...] visit HYPERLINK http://www.catholichealthinitiatives.org/ www.catholichealthinitiatives.org. November 15, 2019 Moderate Conscious Sedation, Adult, Care After These [...] you are awake and alert. ??? Take qsex-mds-xgjqhpm and prescription medicines only as told by [...] 06/18/2014 Document Revised: 08/10/2018 Document Reviewed: 12/17/2016 [employer] Patient Education ?? 2020 [employer] Surgical Procedures for Varicose Veins, Care After This sheet gives you information about how to care for yourself after your procedure. Your health care provider may also give you more specific instructions. If you have problems or questions, contact your health care provider. What can I expect after the procedure? After the procedure, it is common to have: ??? Swelling. ??? Bruising. ??? Soreness. ??? Mild skin discoloration. ??? Slight bleeding at incision sites. Follow these instructions at home: Incision care ??? Follow instructions from your health care provider about how to take care of your incisions. Make sure you: ? Wash your hands with soap and water before you change your bandage (dressing). If soap and water are not available, use hand spanish literature professor. ? Change your dressing as told by your health care provider. ? Leave stitches (sutures), skin glue, or adhesive strips in place. These skin closures may need to stay in place for 2 weeks or longer. If adhesive strip edges start to loosen and curl up, you may trim the loose edges. Do not remove adhesive strips completely unless your health care provider tells you to do that. ??? Check your incision or puncture area every day for signs of infection. Check for: ? Redness, swelling, or pain. ? Fluid or blood. ? Warmth. ? Pus or a bad smell. Activity ??? Get regular daily exercise. Walk or ride a stationary bike daily, or as told by your health care provider. ??? Return to your normal activities as told by your health care provider. Ask your health care provider what activities are safe for you. ??? Do not use any products that contain nicotine or tobacco, such as cigarettes and e-cigarettes. If you need help quitting, ask your health care provider. General instructions ??? Take gkwu-wid-oyobmwt and prescription medicines only as told by your health care provider. ??? Wear loose-fitting clothing. ??? Be patient with your recovery. It can take up to 4 weeks to recover completely. ??? Wear compression stockings as told by your health care provider. These stockings help to prevent blood clots and reduce swelling in your legs. ??? Keep all follow-up visits as told by your health care provider. This is important. Contact a health care provider if: ??? You have a fever. ??? You have redness, swelling, or pain around your incision. ??? You have fluid or blood coming from your incision. ??? Your incision feels warm to the touch. ??? You have pus or a bad smell coming from your incision. ??? You develop a cough. Get help right away if: ??? You pass out. ??? You have very bad pain in your leg. ??? You have leg pain that gets worse when you walk. ??? You have redness or swelling in your leg that is getting worse. ??? You have trouble breathing. ??? You cough up blood. Summary ??? After the procedure, it is common to have swelling, bruising, soreness, and mild skin discoloration. ??? Follow instructions from your health care provider about how to take care of your incisions. ??? Wear compression stockings as told by your health care provider. These stockings help to prevent blood clots and reduce swelling in your legs. ??? Get regular exercise daily. Walk or ride a stationary bike as told by your health care provider. This information is not intended to replace advice given to you by your health care provider. Make sure you discuss any questions you have with your health care provider. Document Released: 05/01/2015 Document Revised: 08/10/2018 Document Reviewed: 11/23/2017 [employer] Patient Education ?? 2020 [employer]. Emergency Awareness and Preventative Care STROKE is [...] Assistance with quitting is available by contacting 8-273-ERYOStorageTreasures.comNOW. This is a free resource providing counseling, support, and referral. Or you may contact your personal physician. [employer] Suicide Prevention Lifeline: The National Suicide Prevention [...] This Visit (last charted value for your 08/28/2020 visit) Vascular Ultrasound 08/28/2020 1:14 PM VL Endovenous Ablation Init Vein: VL Endovenous Ablation Init Vein Patient Name:ROSARIO GREGG I have received and understand this information and was given the opportunity to ask questions. Patient/Professor Of Religion Name: Patient/Professor Of Religion Signature: Relationship to Patient: Clinician/Hospital Professor Of Religion Signature: Date: Electronically signed by Akin, [facility] Conversion Stem Lead Former Mari at 12/27/2022 11:59 AM CDT documented in this encounter Plan of Treatment Not on file documented as of this encounter Visit Diagnoses Not on filedocumented in this encounter Additional Health Concerns Infection Onset Date Last Indicated Resolved Time MRSA (C) 06/11/2023 06/11/2023 documented as of this encounter Care Teams Black Mill Operator Relationship Specialty Start Date End Date Annalise Muro, DO [address] [place] [address] PCP - General Family Medicine 06/06/23 Chuck Mei PA-C [address], [facility] [address] [place] [address] Cardiology 11/01/23 documented as of this encounter
--- OUTSIDE RECORDS SUMMARY | 2025-05-05 12:25 | XMS_ITS | Encounter Summary ---
Author Organization [employer] ([place], [place], [place], [place]) Address [address] [place] [address] Care Team Providers Care Government Teacher Name Role Phone Annalise Carter DO Primary Care Provider [phone] Chuck Mei PA-C Unavailable [phone] Encounter Details Date Type Department Care Team (Late st Contact Info) Description 07/10/2020 Transcribed Document [facility] [place] [address] [place] [address] ProviderLars MD [address] [place], [place] [address] Social History Tobacco Use Types Packs/Day Years [...] Conversion Note - Lars ProviderMD - 07/10/2020 11:11 AM CDT Nursing Discharge Summary Entered On: 07/10/2020 11:12 EDT Performed On: 07/10/2020 11:11 EDT by Guillermina Mayberry Rn Discharge Documentation Discharge Date/Time : 07/10/2020 11:11 EDT Patient Disposition, General : Discharge Discharge To : Home with ambulatory/outpatient follow-up Mode Of Departure, General Discharge : Private vehicle Accompanied By, Discharge : Other: nurse IV Discontinued : Yes Personal Belongings With Patient : Yes Prescriptions Given to Patient : Yes Discharge Instructions Reviewed With, Opportunity For Questions Given : Patient Patient Education Completed : Yes Teaching Method : Explanation Teaching Evaluation : Verbalizes understanding Guillermina Mayberry, Rn - 07/10/2020 11:11 EDT documented in this encounter Plan of Treatment Not on file documented as of this encounter Visit Diagnoses Not on filedocumented in this encounter Additional Health Concerns Infection Onset Date Last Indicated Resolved Time MRSA (C) 06/11/2023 06/11/2023 documented as of this encounter Care Teams Government Teacher Relationship Specialty Start Date End Date Annalise Carter, [address] [place] [address] PCP - General Family Medicine 06/06/23 Chuck Mei PA-C [address], [facility] [address] [place] [address] Cardiology 11/01/23 documented as of this encounter
--- OUTSIDE RECORDS SUMMARY | 2025-05-05 12:25 | XMS_ITS | Encounter Summary ---
Author Organization [employer] ([place], [place], [place], [place]) Address [address] [place] [address] Care Team Providers Care Cardiopulmonary Technologist Name Role Phone Annalise Carter DO Primary Care Provider [phone] Chuck Mei PA-C Unavailable [phone] Encounter Details Date Type Department Care Team (Late st Contact Info) Description 08/28/2020 Transcribed Document [facility] [place] [place] [facility] [place] [address] ProviderLars MD [address] [place] [address] Social History Tobacco Use Types [...] Conversion Note - Lars ProviderMD - 08/28/2020 4:24 PM CHIEF MECHANICAL OFFICER Nursing Discharge Summary Entered On: 08/28/2020 16:25 EST Performed On: 08/28/2020 16:24 EST by ARNEL FELIZ RN Discharge Documentation Discharge Date/Time : 08/28/2020 16:24 EST Patient Disposition, General : Discharge Discharge To : Home with ambulatory/outpatient follow-up Mode Of Departure, General Discharge : Private vehicle Accompanied By, Discharge : Son IV Discontinued : Yes Personal Belongings With Patient : Yes Discharge Instructions Reviewed With, Opportunity For Questions Given : Patient, Son Patient Education Completed : Yes Teaching Method : Explanation, Printed materials Teaching Evaluation : Verbalizes understanding ARNEL FELIZ, RN - 08/28/2020 16:24 EST Electronically signed by Brittni Gerardo Conversion Automatic Casting Machine Operator Cerner at 12/27/2022 11:49 AM CDT documented in this encounter Plan of Treatment Not on file documented as of this encounter Visit Diagnoses Not on filedocumented in this encounter Additional Health Concerns Infection Onset Date Last Indicated Resolved Time MRSA (C) 06/11/2023 06/11/2023 documented as of this encounter Care Teams Cardiopulmonary Technologist Relationship Specialty Start Date End Date Annalise Carter, DO [address] [place] [address] PCP - General Family Medicine 06/06/23 Chuck Mei PA-C [address] , [facility] [address] [place] [address] Cardiology 11/01/23 documented as of this encounter
--- OUTSIDE RECORDS SUMMARY | 2025-05-05 12:25 | XMS_ITS | Encounter Summary ---
Author Organization [employer] ([place], [place], [place], [place]) Address [address] [place] [address] Care Team Providers Care Painter Spray Name Role Phone Annalise Carter DO Primary Care Provider [phone] Chuck Mei PA-C Unavailable [phone] Encounter Details Date Type Department Care Team (Late st Contact Info) Description 09/17/2020 Transcribed Document [facility] [place] [facility] [place] [address] ProviderLars MD [address] [place] [address] Social History Tobacco Use Types [...] Conversion Note - Lars Jeffries MD - 09/17/2020 3:15 PM SURFACE PLATE INSPECTOR Patient Education Materials Follows: Venogram, Care After This sheet gives you [...] Pus or a bad smell. ??? Take fhxs-mcb-woruelq and prescription medicines only as told by [...] day for signs of infection. ??? Take yfzd-wmm-ydhoukj and prescription medicines only as told by [...] 06/18/2014 Document Revised: 08/10/2018 Document Reviewed: 07/22/2017 [employer] Patient Education ? 2020 [employer] Moderate Conscious Sedation, Adult, Care After [...] you are awake and alert. ??? Take zenl-mml-rlmerlp and prescription medicines only as told by [...] 06/18/2014 Document Revised: 08/10/2018 Document Reviewed: 12/17/2016 [employer] Patient Education ? 2019 [employer] It???s Cold and Flu Season ??? [...] to thoroughly wash your hands, use hand flight manager. While handwashing is best, hand flight manager helps to reduce the spread of germs when you are out and about. Have hand flight manager in several locations so you can always [...] keep people from also getting sick. Don???t [place] It! Sneezing this time of year is [...] HYPERLINK http://www.catholichealthinitiatives.org/ www.catholichealthinitiatives.org. November 15, 2019 FAQ - Patient COVID-19 testing Why do I need [...] patients who test positive for COVID-19. If I'm a patient, should I wear a mask? [...] through the local health department and the [place] Department for Public Health. Those organizations are [...] need during a recommended self-quarantine period. The patient's name is not revealed to anyone during the contact tracing interviews, even if a contact asks. Who would be considered a close contact ? According to the CDC, a close [...] a face covering and maintain social distancing - at least 6 feet from others at [...] and need to call 911, notify the wire mill operator that you have, or think you [...] others. You should stay in a specific sick room if possible, and away from other people [...] (including before you enter a health care provider's office). ??? If you are caring for [...] clean your hands with an alcohol-based hand flight manager that contains at least 60% alcohol. Clean your hands often. ??? Wash hands: Wash your hands often with soap and water for at least 20 seconds when visibly dirty. This is especially important after blowing your nose, coughing or sneezing, and going to the bathroom, and before eating or preparing food. ??? Hand flight manager: Use an alcohol-based hand flight manager with at least 60% alcohol, covering all [...] and water or put them in the cognos report developer. Clean all high-touch surfaces every day. Clean high-touch surfaces in your isolation area ( sick room and bathroom) every day; let a caregiver clean and disinfect high-touch surfaces in other areas of the home. ??? Clean and disinfect: Routinely clean high-touch surfaces in your sick room and [...] or body fluids on them. ??? Household summer intern and disinfectants: Clean the area or item with soap and water or another detergent if it is dirty. Then, use a household disinfectant. ?? Be sure to follow the instructions on the label to ensure safe and effective use of the product. Many products recommend keeping the surface wet for several minutes to ensure germs are killed. Many also recommend precautions such as wearing gloves and making sure you have good ventilation during use of the product. ?? Most EPA-registered household disinfectants should be effective. A full list of disinfectants can be found here: https://www.epa.gov/pesticide-registration/qobf-r-fxqdqomdhfbmb-odb-bibknuf-ks rs-cov-2 Electronically signed by Brittni Gerardo Conversion Medical Assisting Instructor Cerner at 12/27/2022 11:46 AM CDT documented in this encounter Plan of Treatment Not on file documented as of this encounter Visit Diagnoses Not on filedocumented in this encounter Additional Health Concerns Infection Onset Date Last Indicated Resolved Time MRSA (C) 06/11/2023 06/11/2023 documented as of this encounter Care Teams Painter Spray Relationship Specialty Start Date End Date Annalise Carter, [address] [facility] [address] [place] [address] PCP - General Family Medicine 06/06/23 Chuck Mei PA-C [address], [address] [place] [address] Cardiology 11/01/23 documented as of this encounter
--- OUTSIDE RECORDS SUMMARY | 2025-05-05 12:25 | XMS_ITS | Clinical Summary ---
Author Organization [facility] Address [address] [facility] [address] [place] [address] Phone Care Team Providers Care Underwriting Service Representative Name Role Phone Tab Tan MD [phone] Conditions or Problems No information available. Medications No information available. Medications Administered No information available. Allergies, Adverse Reactions, Alerts No information available. Results No information available. Plan of Care No information available. Procedures No information available. Vital Signs No information available. Immunizations No information available. Advance Directives No information available.
--- OUTSIDE RECORDS SUMMARY | 2025-05-05 12:25 | XMS_ITS | Encounter Summary ---
Author Organization [employer] ([place], [place], [place], [place]) Address [address] [place] [address] Care Team Providers Care Bullet Lubricant Mixer Name Role Phone Annalise Carter DO Primary Care Provider [phone] Chuck Mei PA-C Unavailable [phone] Encounter Details Date Type Department Care Team (Late st Contact Info) Description 07/10/2020 Transcribed Document [facility] [place] [address] [place] [address] ProviderLasr MD [address] [place], [place] [id number] Social History Tobacco Use Types Packs/Day Years [...] Conversion Note - Lars ProviderMD - 07/10/2020 12:27 AM CDT Bronchodilator Assessment Score, RT Entered On: 07/10/2020 0:28 EDT Performed On: 07/10/2020 0:27 EDT by JANETH FLANNERY RRT Bronchodilator Assessment Score, RT Pulmonary Diagnosis/History : Covid Pneumonioa Home Respiratory Medications : Qid Duo, Symbicort Home Oxygen Comment : None Home CPAP Comment : None Pulmonary History, Bronchodilator Assessment Score : Pulmonary history Smoking History, Bronchodilator Assessment Score : No smoking history Chest Xray Results, Bronchodilator Assessment Sc : Infiltrates/Atelectasis/Pleural effusion Surgical Status, Bronchodilator Assessment Score : No surgery Respiratory Status, Bronchodilator Assessment Sc : Dyspnea on exertion Breath Sounds, Bronchodilator Assessment Score : Clear Oxygen Level, Bronchodilator Assessment Score : No oxygen Cough, Bronchodilator Assessment Score : Strong productive Assessment Score, Bronchodilator Assessment Score : 5 JANETH FLANNERY, REPAIRER PUMP - 07/10/2020 0:27 EDT Electronically signed by [facility] Conversion Travel Registered Nurse Oncology Cerner at 12/27/2022 12:10 PM CDT documented in this encounter Plan of Treatment Not on file documented as of this encounter Visit Diagnoses Not on filedocumented in this encounter Additional Health Concerns Infection Onset Date Last Indicated Resolved Time MRSA (C) 06/11/2023 06/11/2023 documented as of this encounter Care Teams Bullet Lubricant Mixer Relationship Specialty Start Date End Date Annalise Carter, [address] [facility] [address] [place] [address] PCP - General Family Medicine 06/06/23 Chuck Mei PA-C [address], [facility] [address] [place] [id number] Cardiology 11/01/23 documented as of this encounter
--- OUTSIDE RECORDS SUMMARY | 2025-05-05 12:25 | XMS_ITS | Encounter Summary ---
Author Organization [employer] ([place], [place], [place], [place]) Address [address] [place] [address] Care Team Providers Care Small Business Banking Officer Name Role Phone Annalise Carter DO Primary Care Provider [phone] Chuck Mei PA-C Unavailable [phone] Encounter Details Date Type Department Care Team (Late st Contact Info) Description 09/17/2020 Transcribed Document [facility] [place] [facility] [place] [address] ProviderLars MD [address] [place] [address] Social History Tobacco Use Types [...] Cerner Conversion Note - Historical ProviderMD - 09/17/2020 3:00 PM SITE SAFETY REPRESENTATIVE Event Note Entered On: 09/17/2020 15:12 EST Performed On: 09/17/2020 15:00 EST by JAKE AHMADI RN Event Note Event Date/Time : 09/17/2020 15:00 EST Description of Event : Return from procedure lab per stretcher awake and alert, skin w/d, denies any c/o. Has bulky dressing right leg-CDI, no swelling, no bleeding, no pain, bilateral lower ext w/d, good PT and DP pulses felt. Food and drink ordered. JAKE AHMADI, RN - 09/17/2020 15:08 EST Electronically signed by Akin, [facility] Conversion Fur Comber Cerner at 12/27/2022 11:58 AM CDT documented in this encounter Plan of Treatment Not on file documented as of this encounter Visit Diagnoses Not on filedocumented in this encounter Additional Health Concerns Infection Onset Date Last Indicated Resolved Time MRSA (C) 06/11/2023 06/11/2023 documented as of this encounter Care Teams Small Business Banking Officer Relationship Specialty Start Date End Date Annalise Carter, DO [address] [facility] [address] [place] [address] PCP - General Family Medicine 06/06/23 Chuck Mei PA-C [address], [facility] [address] [place] [address] Cardiology 11/01/23 documented as of this encounter
--- OUTSIDE RECORDS SUMMARY | 2025-05-05 12:25 | XMS_ITS | Encounter Summary ---
Author Organization [employer] ([place], [place], [place], [place]) Address [address] [place] [address] Care Team Providers Care Anthropology And Archeology Instructor Name Role Phone Annalise Carter DO Primary Care Provider [phone] Chuck Mei PA-C Unavailable [phone] Encounter Details Date Type Department Care Team (Late st Contact Info) Description 05/28/2020 Transcribed Document [facility] [place] Family [place] [facility] [place] [address] ProviderLars MD [address] [place] [address] Social History Tobacco Use Types Packs/Day [...] Conversion Note - Lars ProviderMD - 05/28/2020 8:45 AM CDT Evaluation, Physical Therapy Entered On: 05/28/2020 16:03 EDT Performed On: 05/28/2020 15:56 EDT by GUILLERMO FLORES, PT General Information, PT Visit Type, PT : Initial evaluation Patient Orders : Order Date Order Ordering 05/26/2020 18:21 Consult to Physical Therapy Ordered By: GERTRUDIS LAZAR MD-[facility] 05/27/2020 11:52 Consult to Physical Therapy Ordered By: TOYIN GUAMAN MD 05/28/2020 08:45 PT Evaluation and Treatment Ordered By: TOYIN GUAMAN MD Active Diagnoses : 05/23/2020 12:00 2019-nCoV acute respiratory disease 05/23/2020 12:00 Hypokalemia 05/23/2020 12:00 Pneumonia, unspecified organism 05/23/2020 12:00 Shortness of breath Therapy Diagnosis, PT : Evaluation of mobility Admission Date : 05/23/2020 09:33 Personal Devices : Personal Devices No Devices Recorded Assistive Devices : Assistive Devices No Devices Recorded Isolation Maintained : Airborne, Contact, Droplet General Information Comment, PT : Admitted with CoVid Positive Pneumonia, Sepsis GUILLERMO FLORES, PT - 05/28/2020 15:56 EDT General Status Patient Received Status : Supine in bed Treatment Start Time : 05/28/2020 15:37 EDT Patient Left Status : Sitting edge of bed, RN/PCT informed, Communication board completed, All needs met and within reach RN/PCT Informed Comment : OK to see per RN Treatment End Time : 05/28/2020 15:54 EDT Treatment Time : 17 Minute(s) GUILLERMO FLORES, PT - 05/28/2020 15:56 EDT History and Environment Living Situation, Therapy : Home Patient Lives With : Parent(s) Persons Assisting Patient at Home : Alone Persons Providing Information : Patient Home Equipment Therapy, PT : None Home Setup : One story Stairs : Yes Stair Location(s) : Outside Outside Stairs, Number of Steps : 8 Railing Outside : No GUILLERMO FLORES, PT - 05/28/2020 15:56 EDT Prior Level of Function PT GRID Prior LOF Ambulation, Household : Independent Prior LOF Ambulation, Community : Independent Prior LOF Bed Mobility : Independent Prior LOF Toileting : Independent Prior LOF Transfer : Independent GUILLERMO FLORES, PT - 05/28/2020 15:56 EDT Upper Extremity Upper Extremity Dominance : Right Right UE Active ROM : WFL Left UE Active ROM : WFL GUILLERMO FLORES, PT - 05/28/2020 15:56 EDT Right Upper Extremity MMT Shoulder Flexion 0-180 : 5/normal Elbow Flexion 0-150 : 5/normal Elbow Extension 0-0 : 5/normal GUILLERMO FLORES, PT - 05/28/2020 15:56 EDT Left Upper Extremity MMT Shoulder Flexion 0-180 : 5/normal Elbow Flexion 0-150 : 5/normal Elbow Extension 0-0 : 5/normal GUILLERMO FLORES, PT - 05/28/2020 15:56 EDT Lower Extremity RLE Active ROM : WFL LLE Active ROM : WFL GUILLERMO FLORES, PT - 05/28/2020 15:56 EDT Right Lower Extremity MMT Hip Flexion (0-125) : 5/normal Hip Abduction (0-45) : 5/normal Hip Adduction (0-20) : 5/normal Knee Flexion (0-140) : 5/normal Knee Extension (0-0) : 5/normal Ankle Dorsiflexion (0-20) : 5/normal GUILLERMO FLORES, PT - 05/28/2020 15:56 EDT Left Lower Extremity MMT Hip Flexion (0-125) : 5/normal Hip Abduction (0-45) : 5/normal Hip Adduction (0-20) : 5/normal Knee Flexion (0-140) : 5/normal Knee Extension (0-0) : 5/normal Ankle Dorsiflexion (0-20) : 5/normal GUILLERMO FLORES, PT - 05/28/2020 15:56 EDT Functional Mobility Mobility Grid Bed Roll Right : Rehab Complete independence Bed Scooting : Rehab Complete independence Supine to Sit : Rehab Complete independence Sit to Stand : Rehab Complete independence Stand to Sit : Rehab Complete independence Sit to Supine : Rehab Complete independence GUILLERMO FLORES, PT - 05/28/2020 15:56 EDT Gait Training/Assessment, PT Weight Bearing Status Maintained : Yes Weight Bearing Status : Full Gait Assistance Level : Independent, complete Walking Distance : Amb in room approximately 30' ind Ambulatory Devices : None Gait Deviations : No GUILLERMO FLORES, PT - 05/28/2020 15:56 EDT Cognition Assessment, PT Orientation : Oriented x 4 Follows Basic Command Assessment : Yes GUILLERMO FLORES, PT - 05/28/2020 15:56 EDT Edu Topics Physical Therapy Education Grid Bed Mobility Training : Returns demonstration Transfer Training : Returns demonstration GUILLERMO FLORES, PT - 05/28/2020 15:56 EDT Indication Assesessment, PT Physical Therapy Indicated : No Physical Therapy Not Indicated : Independent, complete GUILLERMO FLORES, PT - 05/28/2020 15:56 EDT Plan of Care, PT PT Tx Plan/Goals Established w Patient : Yes Reason Tx/Plan Not Established W/ Pt PT : Ind with amb PT Frequency Rehab : Discontinue GUILLERMO FLORESCam, PT - 05/28/2020 15:56 EDT Treatment Note Subjective Comment : I am doing what I need to to go home. I'm not going outside. Plans on going home tomorrow. Patient's Response to Treatment : Ind with amb Additional Objective Information : Amb ind in room approximately 30' Ind with all mobility Assessment : Doesn't need PT Plan for Treatment : D/C PT FLORES GUILLERMO Benjamin, PT - 05/28/2020 15:56 EDT Pain Assessment Pain Scaled Used : 0-10 Pain scale Pain Score Pre-Intervention : 0 GUILLERMO FLORES, PT - 05/28/2020 15:56 EDT Image 1 - Images currently included in the form version of this document have not been included in the text rendition version of the form. Anticipated Discharge Needs, OT/PT Anticipated Discharge to : Home, independently FLORESRADHAGUILLERMO K., PT - 05/28/2020 15:56 EDT [place] PT Charges PT Eval Moderate Complexity : 1 GUILLERMO FLORES, PT - 05/28/2020 15:56 EDT documented in this encounter Plan of Treatment Not on file documented as of this encounter Visit Diagnoses Not on filedocumented in this encounter Additional Health Concerns Infection Onset Date Last Indicated Resolved Time MRSA (C) 06/11/2023 06/11/2023 documented as of this encounter Care Teams Anthropology And Archeology Instructor Relationship Specialty Start Date End Date Annalise Carter, DO [address] [place] [address] PCP - General Family Medicine 06/06/23 Chuck Mei PA-C [address], [address] [place] [address] Cardiology 11/01/23 documented as of this encounter
--- OUTSIDE RECORDS SUMMARY | 2025-05-05 12:25 | XMS_ITS | Encounter Summary ---
Author Organization [employer] ([place], [place], [place], [place]) Address [address] [place] [address] Care Team Providers Care Distribution Accounting Clerk Name Role Phone Annalise Carter DO Primary Care Provider [phone] Chuck Mei PA-C Unavailable [phone] Encounter Details Date Type Department Care Team (Late st Contact Info) Description 05/27/2020 Transcribed Document [facility] [place] Family Medicine [address] [place] [address] ProviderLars MD [address] [place] [address] Social History Tobacco Use Types [...] Cerner Conversion Note - Lars ProviderMD - 05/27/2020 8:52 AM CDT UM Authorization Entered On: 05/27/2020 8:52 EDT Performed On: 05/27/2020 8:52 EDT by rTina Carney Rn-Utilization Review Primary Insurance Authorization Authorization and Policy Numbers : Insurance 1 Health Plan: [employer] Policy Number: [id number] Authorization Number: Insurance Primary Name : [employer] GOLD PLUS HMO Policy Number: [id number] Authorization Status-Primary : Notification only Auth/Referral Contact Name-Primary : Luis Felipe R Reference Number-Primary : pend ref #[id number] Authorization Number-Primary : [id number] Authorized Service Begin Date-Primary : 05/23/2020 EDT Historical Authorization Comments-Primary : Comment 1: INPT approved per email from Luis Felipe Robertson at [facility] (MERLYN JONES, Broom Stitcher 05/26/2020 08:26) Comment 2: Pending ref no per availity for 05/23 admit. Clinicals faxed via [employer] for IP approval (ALEXANDER CALZADA RN 05/24/2020 10:37) Trina Carney Rn-Utilization Review - 05/27/2020 8:52 EDT Electronically signed by [facility] Conversion Chamber Walker Cerner at 12/27/2022 12:09 PM CDT documented in this encounter Plan of Treatment Not on file documented as of this encounter Visit Diagnoses Not on filedocumented in this encounter Additional Health Concerns Infection Onset Date Last Indicated Resolved Time MRSA (C) 06/11/2023 06/11/2023 documented as of this encounter Care Teams Distribution Accounting Clerk Relationship Specialty Start Date End Date Annalise Carter, DO [address] [place] [address] PCP - General Family Medicine 06/06/23 Chuck Mei PA-C [address], [facility] [address] [place] [address] Cardiology 11/01/23 documented as of this encounter
--- OUTSIDE RECORDS SUMMARY | 2025-05-05 12:25 | XMS_ITS | Encounter Summary ---
Author Organization [employer] ([place], [place], [place], [place]) Address [address] [place] [address] Care Team Providers Care Liner Checker Name Role Phone Annalise Carter DO Primary Care Provider [phone] Chuck Mei PA-C Unavailable [phone] Encounter Details Date Type Department Care Team (Late st Contact Info) Description 08/28/2020 Transcribed Document [facility] [place] Family Medicine [address] [place] [address] ProviderLars MD [address] [place] [address] Social History Tobacco Use Types [...] Conversion Note - Lars ProviderMD - 08/28/2020 4:22 PM SECURITIES ANALYST Stroke/Warfarin Instructions Entered On: 08/28/2020 16:22 EST Performed On: 08/28/2020 16:22 EST by ARNEL FELIZ RN Stroke/Warfarin Instructions Stroke/TIA Discharge Ins : Open Warfarin Discharge Ins : N/A ARNEL FELIZ RN - 08/28/2020 16:22 EST Stroke/TIA Discharge Instructions Individualized Stroke Risk Factors *Q : Coronary artery disease, Heart disease, High cholesterol, Hypertension/High blood pressure Stroke Education Handouts Given *Q : Yes ARNEL FELIZ RN - 08/28/2020 16:22 EST Stroke Education Materials Given-Grid Activation of EMS *Q : Verbalizes understanding Follow-up Care After Discharge *Q : Verbalizes understanding Medications prescribed at DC *Q : Verbalizes understanding Risk Factors for Stroke *Q : Verbalizes understanding Warning S&S of Stroke *Q : Verbalizes understanding ARNEL FELIZ RN - 08/28/2020 16:22 EST Stroke/TIA Signs/Symptoms to Report Immediately : Sudden onset difficulty speaking, Sudden onset difficulty understanding speech, Sudden onset change in vision, Sudden onset weakness particulary on one side of the body, Sudden onset numbness/tingling, Sudden severe headache, Sudden dizziness or trouble with gait, Call 9-: EMS activation is crucial My LDL Level: : LDL Level No qualifying data available. ARNEL FELIZ RN - 08/28/2020 16:22 EST Electronically signed by Akin, [facility] Conversion Gallery Or Museum Technician Cerner at 12/27/2022 12:08 PM CDT documented in this encounter Plan of Treatment Not on file documented as of this encounter Visit Diagnoses Not on filedocumented in this encounter Additional Health Concerns Infection Onset Date Last Indicated Resolved Time MRSA (C) 06/11/2023 06/11/2023 documented as of this encounter Care Teams Liner Checker Relationship Specialty Start Date End Date Annalise Carter, [address] [facility] [address] [place] [address] PCP - General Family Medicine 06/06/23 Chuck Mei PA-C [address] [facility] [address] [place] [address] Cardiology 11/01/23 documented as of this encounter
--- OUTSIDE RECORDS SUMMARY | 2025-05-05 12:25 | XMS_ITS | Encounter Summary ---
Author Organization [employer] ([place], [place], [place], [place]) Address [address] [place] [address] Care Team Providers Care Stripper Color Name Role Phone Annalise Carter DO Primary Care Provider [phone] Chuck Mei PA-C Unavailable [phone] Encounter Details Date Type Department Care Team (Late st Contact Info) Description 07/10/2020 Transcribed Document [facility] [place] [address] [place] [address] ProviderLars MD [address] [place] [address] Social History Tobacco Use Types [...] Cerner Conversion Note - Historical ProviderMD - 07/10/2020 5:00 AM CDT Chart Check - Review Order Profile Entered On: 07/10/2020 6:18 EDT Performed On: 07/10/2020 5:00 EDT by Sravanthi Smyth RN-FABIOLA Chart Check Powerplans Initiated/Discontinued as Appropriate : Yes All Active Orders Reviewed : Yes Sravanthi Smyth RN-FABIOLA - 07/10/2020 6:18 EDT documented in this encounter Plan of Treatment Not on file documented as of this encounter Visit Diagnoses Not on filedocumented in this encounter Additional Health Concerns Infection Onset Date Last Indicated Resolved Time MRSA (C) 06/11/2023 06/11/2023 documented as of this encounter Care Teams Stripper Color Relationship Specialty Start Date End Date Annalise Carter DO [address] [facility] [address] [place] [address] PCP - General Family Medicine 06/06/23 Chuck Mei PA-C [address], [facility] [address] [place] [address] Cardiology 11/01/23 documented as of this encounter
--- OUTSIDE RECORDS SUMMARY | 2025-05-05 12:25 | XMS_ITS | Encounter Summary ---
Author Organization [employer] ([place], [place], [place], [place]) Address [address] [place] [address] Care Team Providers Care Agronomist Name Role Phone Annalise Carter DO Primary Care Provider [phone] Chuck Mei PA-C Unavailable [phone] Encounter Details Date Type Department Care Team (Late st Contact Info) Description 07/10/2020 Transcribed Document [facility] [place] Family Medicine [address] [place] [address] ProviderLars MD [address] [place] [address] Social History Tobacco Use [...] Conversion Note - Lars ProviderMD - 07/10/2020 10:15 AM CDT Stroke/Warfarin Instructions Entered On: 07/10/2020 10:15 EDT Performed On: 07/10/2020 10:15 EDT by Guillermina Mayberry Rn Stroke/Warfarin Instructions Stroke/TIA Discharge Ins : N/A Warfarin Discharge Ins : N/A Guillermina Mayberry Rn - 07/10/2020 10:15 EDT documented in this encounter Plan of Treatment Not on file documented as of this encounter Visit Diagnoses Not on filedocumented in this encounter Additional Health Concerns Infection Onset Date Last Indicated Resolved Time 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
--- OUTSIDE RECORDS SUMMARY | 2025-05-05 12:25 | XMS_ITS | Encounter Summary ---
Author Organization [employer] ([place], [place], [place], [place]) Address [address] [place] [address] Care Team Providers Care Car Driver Name Role Phone Annalise Carter DO Primary Care Provider Chuck Mei PA-C Unavailable [phone] Encounter Details Date Type Department Care Team (Late st Contact Info) Description 09/17/[address] [facility] [place] Family Medicine [facility] [place] [address] ProviderLars MD [address] [place] [address] Social History Tobacco Use Types Packs/Day [...] Conversion Note - Lars ProviderMD - 09/17/2020 2:09 PM BODY AND FENDER MECHANIC Nursing Discharge Summary Entered On: 09/17/2020 14:10 EST Performed On: 09/17/2020 14:09 EST by BRUNO COOK Rn-Clinical Coordinator I Discharge Documentation Discharge Date/Time : 09/17/2020 17:16 EST JAKE AHMADI RN - 09/17/2020 17:15 EST Patient Disposition, General : Discharge Discharge To : Home with ambulatory/outpatient follow-up Mode Of Departure, General Discharge : Private vehicle IV Discontinued : Yes Personal Belongings With Patient : Yes Discharge Instructions Reviewed With, Opportunity For Questions Given : Patient Patient Education Completed : Yes Teaching Method : Explanation Teaching Evaluation : Verbalizes understanding BRUNO COOK, Rn-Clinical Coordinator I - 09/17/2020 14:09 EST Electronically signed by Akin, [facility] Conversion Funding Coordinator Cerner at 12/27/2022 12:03 PM CDT documented in this encounter Plan of Treatment Not on file documented as of this encounter Visit Diagnoses Not on filedocumented in this encounter Additional Health Concerns Infection Onset Date Last Indicated Resolved Time MRSA (C) 06/11/2023 06/11/2023 documented as of this encounter Care Teams Car Driver Relationship Specialty Start Date End Date Annalise Carter, DO [address] [place] [address] PCP - General Family Medicine 06/06/23 Chuck Mei PA-C [address] , [facility] [address] [place] [address] Cardiology 11/01/23 documented as of this encounter
--- OUTSIDE RECORDS SUMMARY | 2025-05-05 12:25 | XMS_ITS | Encounter Summary ---
Author Organization [employer] ([place], [place], [place], [place]) Address [address] [place] [address] Care Team Providers Care Yarn Twister Name Role Phone Annalise Carter DO Primary Care Provider Chuck Mei PA-C Unavailable [phone] Encounter Details Date Type Department Care Team (Late st Contact Info) Description 05/27/2020 Transcribed Document [facility] [place] Medicine [address] [place] [address] ProviderLars MD [address] [place] [address] Social History Tobacco Use Types [...] Cerner Conversion Note - Historical ProviderMD - 05/27/2020 5:00 AM CDT Chart Check - Review Order Profile Entered On: 05/27/2020 4:49 EDT Performed On: 05/27/2020 5:00 EDT by Radhika Marquez Rn-Traveler Chart Check Powerplans Initiated/Discontinued as Appropriate : Yes Radhika Marquez Rn-Traveler - 05/27/2020 4:49 EDT documented in this encounter Plan of Treatment Not on file documented as of this encounter Visit Diagnoses Not on filedocumented in this encounter Additional Health Concerns Infection Onset Date Last Indicated Resolved Time MRSA (C) 06/11/2023 06/11/2023 documented as of this encounter Care Teams Yarn Twister Relationship Specialty Start Date End Date Annalise Carter, [address] [facility] [address] [place] [address] PCP - General Family Medicine 06/06/23 Chuck Mei PA-C [address], [place] [address] [place] [address] Cardiology 11/01/23 documented as of this encounter
--- OUTSIDE RECORDS SUMMARY | 2025-05-05 12:25 | XMS_ITS | Encounter Summary ---
Author Organization [employer] ([place], [place], [place], [place]) Address [address] [place] [address] Care Team Providers Care Residential Mortgage Manager Name Role Phone Annalise Carter DO Primary Care Provider [phone] Chuck Mei PA-C Unavailable [phone] Encounter Details Date Type Department Care Team (Late st Contact Info) Description 09/17/2020 Transcribed Document [facility] [place] [facility] [place] [address] ProviderLars MD [address] [place] [address] Social History Tobacco Use Types [...] Conversion Note - Lars ProviderMD - 09/17/2020 4:24 PM SALES REVIEW CLERK Event Note Entered On: 09/17/2020 16:26 EST Performed On: 09/17/2020 16:24 EST by JAKE AHMADI RN Event Note Event Date/Time : 09/17/2020 16:24 EST Description of Event : Dr. Barney in to see patient, dressing removed per CICI Garayphysician underwriter lab, wound mid ventral right leg continues to bleed. Dermabond skin glue used per Dr. Barney. JAKE AHMADI RN - 09/17/2020 16:24 EST documented in this encounter Plan of Treatment Not on file documented as of this encounter Visit Diagnoses Not on filedocumented in this encounter Additional Health Concerns Infection Onset Date Last Indicated Resolved Time MRSA (C) 06/11/2023 06/11/2023 documented as of this encounter Care Teams Residential Mortgage Manager Relationship Specialty Start Date End Date Annalise Carter, [address] [facility] [address] [place] [address] PCP - General Family Medicine 06/06/23 Chuck Mei PA-C [address], [facility] [address] [place] [address] Cardiology 11/01/23 documented as of this encounter
--- OUTSIDE RECORDS SUMMARY | 2025-05-05 12:25 | XMS_ITS | Encounter Summary ---
Author Organization [employer] ([place], [place], [place], [place]) Address [address] [place] [address] Care Team Providers Care Solar Installation Supervisor Name Role Phone Annalise Carter DO Primary Care Provider [phone] Chuck Mei PA-C Unavailable Encounter Details Date Type Department Care Team (Late st Contact Info) Description 07/10/2020 Transcribed Document [facility] Family Medicine [address] [place] [address] ProviderLars MD [address] [place] [address] Social History Tobacco Use Types [...] Conversion Note - Lars ProviderMD - 07/10/2020 10:09 AM CDT On Going Discharge Planning Entered On: 07/10/2020 10:11 EDT Performed On: 07/10/2020 10:09 EDT by AKILA MAE RN-Coordinate Measuring Machine TechnicianSql Etl Developer Progress Note Discharge Arrangements : Patient Post-Acute Information Patient Name: ROSARIO GREGG Gender: Male : [birth year] Age: 59 Years No Post-Acute Placement(s) Listed No Post-Acute Service(s) Listed No [place]pan Referral(s) Listed Discharge Options Discussed with Patient : Discharge transportation, DME, Home Health Barriers to Discharge Identified : Clinical Condition of Patient Barriers to Discharge Unresolved : Clinical Condition of Patient Patient Offered Choice/Affiliations Explained : No AKILA MAE RN-Coordinate Measuring Machine Technician - 07/10/2020 10:09 EDT Narrative Progress Note Narrative Progress Note : To d/c home today. Will need nebulizer machine at d/c. Does not need home oxygen or walker. Historical Progress Note : Up ambulating in room, on RA. Independent without assistive devices. Denies shortness of breath. States hopes to go home tomorrow. No d/c needs anticipated at this time. Will continue to assess during stay. AKILA MAE RN-Coordinate Measuring Machine Technician - 07/09/20 15:36:21 AKILA MAE RN-Coordinate Measuring Machine Technician - 07/10/2020 10:09 EDT Electronically signed by Akin [facility] Conversion House Wrecker Cerner at 12/27/2022 11:56 AM CDT documented in this encounter Plan of Treatment Not on file documented as of this encounter Visit Diagnoses Not on filedocumented in this encounter Additional Health Concerns Infection Onset Date Last Indicated Resolved Time MRSA (C) 06/11/2023 06/11/2023 documented as of this encounter Care Teams Solar Installation Supervisor Relationship Specialty Start Date End Date Annalise Carter, [address] [facility] [address] [place] [address] PCP - General Family Medicine 06/06/23 Chuck Mei PA-C [address], [facility] [address] [place] [address] Cardiology 11/01/23 documented as of this encounter
--- OUTSIDE RECORDS SUMMARY | 2025-05-05 12:25 | XMS_ITS | Encounter Summary ---
Author Organization [employer] ([place], [place], [place], [place]) Address [address] [place] [address] Care Team Providers Care Doctor Chiropractic Name Role Phone Annalise Carter DO Primary Care Provider [phone] Chuck Mei PA-C Unavailable [phone] Encounter Details Date Type Department Care Team (Late st Contact Info) Description 08/28/2020 Transcribed Document [facility] [place] Medicine [address] [place] [address] ProviderLars MD [address] [place], [place] [...] Cerner Conversion Note - Historical ProviderMD - 08/28/2020 12:48 PM MEAT SLICER Pre Procedure Adult Entered On: 08/28/2020 12:54 EST Performed On: 08/28/2020 12:48 EST by ARNEL FELIZ RN Height and Weight, Clinical Dosing Height Source : Measured Height Entry Format : Pimento Height, Feet : 5 ft(Converted to: 152 cm, 60 Inch) Height, Inches : 8.5 Inch(Converted to: 0 ft 9 Inch, 21.59 cm) Clinical Height : 173.99 cm Weight Source : Standing scale Weight Entry Format : Pimento Clinical Dosing Weight : 101.36 kg Weight, Pounds : 223 lb Body Surface Area (BSA) : 2.15 m2 Body Mass Index : 33.5 kg/m2 (HI) [place] Body Weight : 69 kg ARNEL FELIZ RN - 08/28/2020 12:48 EST Health Histories Smoking Status : Smoker, current status unknown Smokeless Tobacco Status : Never Desires Tobacco Cessation Medication : No Reason for No Tobacco Cessation Medication : Refuses FDA approved medications ARNEL FELIZ RN - 08/28/2020 12:48 EST Social History (As Of: 08/28/2020 12:54:21 EST) Tobacco: Smoking Status Former smoker. Last Used: [...] 11/17/2016 22:00:23 EST by CONSTANTIN BLACKBURN RN) Infectious Disease History Has the patient ever been tested for COVID-19? : Yes, Patient stated results Negative Where are the test results? : Unable to Obtain Date of COVID-19 test known? : No Date Comment : PATIENT STATES HE WAS NEGATIVE 1 MONTH AGO Does patient have symptoms of COVID-19? : No COVID19 Screening : No Experiencing Infectious Disease Symptoms : No symptoms Physical contact outside [place] in the last 30 days : No Infectious Disease History : Chicken pox/Shingles, Measles, Meningitis, Mumps, Pertussis (Whooping cough) Tuberculosis Symptoms : None ARNEL FELIZ RN - 08/28/2020 12:48 EST COVID19 PreProcedure Screening Is this an Emergent or Add on Procedure? : No Date PreProcedure COVID-19 test known? : No Has patient been isolated since the test : N/A - PreProcedure, in-person visit Exposed to COVID19 symptoms since test? : N/A - PreProcedure, in-person visit ARNEL FELIZ RN - 08/28/2020 12:48 EST Anesthesia/Transfusion History Family History of Anesthesia Reaction : Prior transfusion without reaction Transfusion History : Prior anesthesia without reaction Family History of Anesthesia Reaction : None ARNEL FELIZ RN - 08/28/2020 12:48 EST Functional Assessment Living Situation : Home Patient Lives With : Parent(s) Current Home Treatments : Blood glucose monitoring ARNEL FELIZ RN - 08/28/2020 12:48 EST [place] Suicide Severity Rating Scale (C-SSRS) CSSRS Past Month Wish to be : No CSSRS Past Month Suicidal Thoughts : No CSSRS Lifetime Suicide Behavior : No Suicide Severity Rating Score : 0 Suicide Severity Rating : No Additional Care Required at this time ARNEL FELIZ RN - 08/28/2020 12:48 EST Psychosocial History Do You Have a History of the Following? : Anxiety, Depression Currently in Unsafe Situation : No ARNEL FELIZ RN - 08/28/2020 12:48 EST Advance Directive Patient has Advance Directive *Q : No, patient refuses Advance Directive information ARNEL FELIZ RN - 08/28/2020 12:48 EST General Info Legal Guardian : No Support Person/Patient Airplane Pilot Crop Dusting : Yes Support Person/Pt Rep Name : Camacho Contact Password : 13 Support Person/Pt Rep Contact Information : [phone] Want Family/Rep/Phys Notified of Admit : No Emergency Contact #1 : SON Emergency Contact #1 Phone Number : [phone] Emergency Contact #1 Relationship : JAYA Emergency Contact #2 : NONE Emergency Contact #2 Phone Number : NONE Emergency Contact #2 Relationship : NONE Primary Language : Citizen Of [place] Preferred Communication Mode : Verbal Communication Barrier : None Behavioral Health Case Manager Needed : No ARNEL FELIZ RN - 08/28/2020 12:48 EST Sleep Apnea Risk Assmt BiPAP/CPAP Ordered for Home Use : Yes Hx of Obstructive Sleep Apnea Diagnosis : Yes BiPAP/CPAP Used at Home : No Reason BiPAP/CPAP Not Used at Home : CANT HEAR MOTHER IF I WEAR IT Age over 50 Years Old : Yes Gender Male : Yes ARNEL FELIZ RN - 08/28/2020 12:48 EST Amrik Scale Amrik Sensory Perception : No impairment Amrik Moisture : Rarely moist Amrik Activity : Walks frequently Amrik Mobility : No limitation Amrik Nutrition : Adequate Amrik Friction and Shear : No apparent problem Amrik Score : 22 ARNEL FELIZ RN - 08/28/2020 12:48 EST Fall Risk Scales ABCs Fall Injury Risk Identification : Coagulation ABC Fall Injury Risk : Moderate to high injury risk COLLADO Hx Falls Immediate/Within 3 Months : No [place] Secondary Diagnosis : No CO[place]O Use of Ambulatory Aid : None [place] IV Therapy or IV Access : Yes [place] Gait/Transferring : Normal, bedrest, immobile [place] Mental Status : Oriented to own ability [place] Fall Risk Score : 20 COLL[place]O Fall Scale Risk Level : 0-24 Low Risk [place] Fall Interventions : Adequate lighting, Assistive devices within reach, Bed in low position, Call device within reach, Fall prevention handout/education per facility policy, Hourly comfort/safety rounds, Non-slip footwear, Personal items within reach, Reinforced to call for assistance before getting out of bed, Room free of clutter/spills, Upper side-rails up, Wheels locked, Wires/Cords secured ARNEL FELIZ RN - 08/28/2020 12:48 EST Valuables and Belongings Valuables and Belongings : Clothing Clothing : Common streetwear Clothing Disposition : Bedside ARNEL FELIZ RN - 08/28/2020 12:48 EST Electronically signed by [facility], [facility] Conversion Clinical Social Worker Cerner at 12/27/2022 12:06 PM CDT documented in this encounter Plan of Treatment Not on file documented as of this encounter Visit Diagnoses Not on filedocumented in this encounter Additional Health Concerns Infection Onset Date Last Indicated Resolved Time MRSA (C) 06/11/2023 06/11/2023 documented as of this encounter Care Teams Doctor Chiropractic Relationship Specialty Start Date End Date Annalise Carter, [address] [facility] [address] [place] [address] PCP - General Family Medicine 06/06/23 Chuck Mei PA-C [address], [facility] [address] [place] [address] Cardiology 11/01/23 documented as of this encounter
--- OUTSIDE RECORDS SUMMARY | 2025-05-05 12:25 | XMS_ITS | Clinical Summary ---
Author Organization Healthcare Address [address] [place] [address] Care Team Providers Care Collar Folder Operator Name Role Phone Niranjan Cardenas MD Primary Care Provider [phone] Social History Tobacco Use Types Packs/Day Years Used Date Smoking Tobacco: Never Sex and Gender Information Value Date Recorded Sex Assigned at Not on file Legal Sex Male 7:27 PM EDT Gender Identity Not on file Sexual Orientation Not on file Last Filed Vital Signs Vital Sign Reading Time Taken Comments Blood Pressure - - Pulse - - Temperature - - Respiratory Rate - - Oxygen Saturation - - Inhaled Oxygen Concentration - - Weight 106 kg (233 lb 15.9 oz) 11/30/2015 3:20 P M EDT Height 175.3 cm (5' 9 ) 11/30/2015 3:20 PM EDT Body Mass Index 34.56 11/30/2015 3:20 PM EDT Plan of Treatment Not on file Care Teams Collar Folder Operator Relationship Specialty Start Date End Date Niranjan Cardenas MD [address] [place] [address] [address] [place] [address] PCP - General 01/22/21
--- OUTSIDE RECORDS SUMMARY | 2025-05-05 12:25 | XMS_ITS | Encounter Summary ---
Author Organization [employer] ([place], [place], [place], [place]) Address [address] [place] [address] Care Team Providers Care Filenet Developer Name Role Phone Annalise Muro DO Primary Care Provider [phone] Chuck Mei PA-C Unavailable [phone] Encounter Details Date Type Department Care Team (Late st Contact Info) Description 07/10/2020 Transcribed Document [facility] Radiology [address] [place] [address] Provider, [facility] MD Lars Social History Tobacco Use Types Packs/Day Years Used Date Smoking Tobacco: Never Assessed Sex and Gender Information Value Date Recorded Sex Assigned at Male 06/19/2023 4:40 PM CDT Legal Sex Male 1:15 PM CDT Gender Identity Male 06/19/2023 4:40 PM CDT Sexual Orientation Straight 06/19/2023 4: 40 PM CDT documented as of this encounter Miscellaneous Notes * Cerner Conversion Note - [facility] Lars Jeffries MD - 07/10/2020 12:17 PM EDT Patient: ROSARIO GREGG Age: 59 Years Sex: Male : 1960 Admit Date 07/07/2020 18:23 Discharge Date 07/10/2020 11:17 Primary Care Provider ANNALISE MURO DO-[facility] Discharge Diagnosis Hemoptysis 07/07/2020 R04.2 ICD-10-CM Reason for Hospitalization This is a 59-year-old morbidly obese male. The patient recently admitted to [facility] with diagnosis of COVID. The patient had [...] start IV antibiotic, admitted to the hospital. Hospital Course No Radiology Results Found. Impression and Plan - Hemoptysis. RESOLBVED blood culture done. were negative evaluated by Pulmonary - History of tobacco use. The patient quit. - Chronic obstructive pulmonary disease. no exacerbation - Volume overload. - History of COVID-19 in May 2020. The patient was seen by Infectious Disease during hospitalization. - Diabetes mellitus with hyperglycemia . on sliding scale. I D/W Dr. Moon Pulmonary. OK to discharge Prescribed albuterol-ipratropium: 3 mL, Nebulized Inhalation, Q6H, PRN: as needed for shortness of breath or wheezing, 90 mL, 1 Refill(s). Vital Signs Oxygen Settings (Last) Oxygen Therapy Mode: Room air (07/10/20 09:00:00) Physical Exam GENERAL: Awake, alert, and oriented to time, place, and person. HEENT: Head is atraumatic, normocephalic. Mucous membranes are dry. No pallor. No jaundice. No cyanosis NECK: Supple. No jugular vein distention. HEART: Regular rate and rhythm. No gallop, rub, or murmur. Normal first and second sounds. No third or fourth sounds. CHEST: Clear to auscultation bilaterally. No wheezes, rales, or crackles. ABDOMEN: Soft, active bowel sounds. No hepatosplenomegaly. No masses. No tenderness. No abdominal distention. Audible bowel sounds in all four abdominal quadrants. GENITOURINARY: No suprapubic tenderness. No suprapubic fullness. No CVA tenderness bilaterally. EXTREMITIES: No clubbing, no cyanosis, no edema. VASCULAR: 2+ pulses dorsalis pedis and posterior tibialis arteries bilaterally. PSYCHIATRIC: Not depressed or anxious. NEUROLOGIC EXAMINATION: Cranial nerves 2 through 12 grossly intact. There is no apparent motor focal weakness in the upper or lower extremities. No facial droop bilaterally. No neurological deficits in upper or lower or lower extremities. MUSCULOSKELETAL: No joint deformity in both knees or both ankles. SKIN: No hematomas. No purpura. No bruises. ENDOCRINE: No thyroid enlargement or nodules. Discharge Disposition Home Discharge Follow Up ANNALISE MURO - Within 1 to 2 weeks ISABEL MOON - Within 1 month Discharge Medications (18) Active aspirin 81 mg oral [...] Int Units = 1 Cap, Oral, Daily Condition on Discharge stable Consulting Physicians Dr. Moon Follow Up Labs/Studies , JUL 09 07:07 136 107 13 / H 212 4.3 26 0.90 \ JUL 09 07:07 \ L 12.9 / H 11.4 364 / L 39.3 \, Time Spent on Discharge 20 minutes documented in this encounter Plan of Treatment Not on file documented as of this encounter Visit Diagnoses Not on filedocumented in this encounter Additional Health Concerns Infection Onset Date Last Indicated Resolved Time MRSA (C) 06/11/2023 06/11/2023 documented as of this encounter Care Teams Filenet Developer Relationship Specialty Start Date End Date Annalise Muro, [address] [facility] [address] [place] [address] PCP - General Family Medicine 06/06/23 Chuck Mei PA-C [address], [facility] [address] [place] [address] Cardiology 11/01/23 documented as of this encounter
--- OUTSIDE RECORDS SUMMARY | 2025-05-05 12:25 | XMS_ITS | Encounter Summary ---
Author Organization [employer] ([place], [place], [place], [place]) Address [address] [place] [address] Care Team Providers Care Membership Advisor Name Role Phone Emma Annalise Bre BENITEZ Primary Care Provider [phone] Chuck Mei PA-C Unavailable [phone] Encounter Details Date Type Department Care Team (Late st Contact Info) Description 07/09/2020 Transcribed Document [facility] Pulm & Critical Care Medicine [address] [facility] [address] [place] [id number] Orville Moon MD [address] [facility] [address] [place] [address] Social History Tobacco Use Types Packs/Day Years [...] Conversion Note - Orville Moon MD - 07/09/2020 1:21 PM EDT Patient: ROSARIO GREGG Age: 59 years Sex: Male : 1960 Associated Diagnoses: None Author: ORVILLE MOON MD Basic Information * Final Report * Pulm/CCM Note Patient: ROSARIO GREGG Age: 59 years Sex: [...] or blood-tinged sputum. 07/07 COVID test NEGATIVE. 07/09: Patient comfortably in bed on room air saturation is 98% denies any further hemoptysis. Review of Systems Constitutional: No fever. Eye: No icterus. Ear/Nose/Mouth/Throat: No nasal congestion. Respiratory: No shortness of breath, No cough, No sputum production, No hemoptysis. Cardiovascular: No palpitations. Gastrointestinal: No vomiting. Genitourinary: No hematuria. Hematology/Lymphatics: No bleeding tendency. Endocrine: No polyuria. Immunologic: No recurrent fevers. Musculoskeletal: No neck pain. Integumentary: No pruritus. Neurologic: Alert and oriented X4. Health Status Current medications: Medications (22) Active Scheduled: (16) acetylcysteine 20% liq 4 mL 3 mL, Nebulized Inhalation, RT_Q8H albuterol-ipratropium inh 3 mL 3 mL, Nebulized Inhalation, RT_Q6H budesonide 0.5 mg/2 mL inh susp 0.5 mg 2 mL, Nebulized Inhalation, RT_BID cyanocobalamin 1000 mcg/1 mL inj 1,000 mcg 1 mL, IntraMuscular, Daily folic acid 1 mg tab 1 mg 1 Tab, Oral, Daily furosemide 40 mg/4 mL inj 40 mg 4 mL, IV Push, Daily guaiF/dextromethor CR 600/30 mg tab 1 [...] tab 40 mg 1 Tab, Oral, BID potassium chloride CR 20 mEq tab 20 mEq 1 Tab, Oral, BID predniSONE 20 mg tab 40 mg 2 Tab, Oral, Daily tamsulosin CR 0.4 mg cap 0.4 mg 1 Cap, Oral, At Bedtime Continuous: (0) PRN: (6) acetaminophen 325 mg tab 650 mg 2 Tab, Oral, Q4H albuterol-ipratropium inh 3 mL 3 mL, Nebulized Inhalation, RT_Q3H cloNIDine 0.1 mg tab 0.1 mg 1 Tab, Oral, Q4H LORazepam 2 mg/mL inj 0.5 mg 0.25 mL, IV Push, Q4H ondansetron 4 mg/2 mL inj 4 mg 2 mL, IV Push, Q4H promethazine 25 mg/1 mL inj 6.25 mg 0.25 mL, IntraVENous, Q6H Physical Examination VS/Measurements Vitals Signs (last 24 hrs) Last Charted Minimum Maximum Temp 97.9 (JUL 09 06:41) 97.9 (JUL 09 06:41) 98 (JUL 08 22:27) Apical HR 88 (JUL 09 08:14) 88 (JUL 09 08:14) 88 (JUL 09 08:14) Mon HR 86 (JUL 09 08:32) 86 (JUL 09 06:41) 111 (JUL 08 17:23) Resp Rate 18 (JUL 09 08:32) 16 (JUL 08 17:23) 20 (JUL 08 22:27) SBP 113 (JUL 09 06:41) 113 (JUL 09 06:41) H 147 (OCT 17:23) DBP 61 (JUL 09 06:41) 61 (JUL 09 06:41) H 95 (OCT 17:23) MAP 76 (JUL 09 06:41) 76 (OCT 06:41) 113 (OCT 17:23) SpO2 98 (JUL 09 08:44) 94 (OCT 17:23) 98 (JUL 09 06:41) Intake & Output Totals Last 24 Hours (7a-7a) Intake (10 Events) Medications (237.32 mL) Oral Intake (480 mL) Output (6 Events) Urine Voided (Volume) (4650 mL) Input Total: 717.32 mL Output Total: 4650 mL Balance: -3932.68 mL General: Alert and oriented, No acute distress. Eye: Pupils are equal, round and reactive to light, Extraocular movements are intact. HENT: Normocephalic. Neck: Supple, No lymphadenopathy. Respiratory: Lungs are clear to auscultation, Respirations are non-labored, Breath sounds are equal. Cardiovascular: Normal rate, Regular rhythm, No edema. Gastrointestinal: Soft, Non-tender, Non-distended, Normal bowel sounds. Musculoskeletal: Normal range of motion, Normal strength. Integumentary: Warm. Neurologic: Alert, Oriented, No focal deficits, Cranial Nerves II-XII are grossly intact. Psychiatric: Cooperative, Appropriate mood & affect. Review / Management Results review: Labs (Last four charted values) WBC H 11.4 (JUL 09) 7.4 (JUL 08) 7.1 (JUL 07) HB L 12.9 (JUL 09) L 12.2 (JUL 08) L 12.7 (JUL 07) HCT L 39.3 (JUL 09) L 38.4 (JUL 08) L 39.4 (JUL 07) Plt 364 (JUL 09) 333 (JUL 08) 341 (JUL 07) Na 136 (JUL 09) 139 (JUL 08) 140 (JUL 07) K 4.3 (JUL 09) 4.1 (JUL 08) 3.5 (JUL 07) Cl 107 (JUL 09) 108 (JUL 08) 108 (JUL 07) CO2 26 (JUL 09) 27 (JUL 08) 26 (JUL 07) BUN 13 (JUL 09) 10 (JUL 08) 10 (JUL 07) Cr 0.90 (JUL 09) 1.00 (JUL 08) 1.00 (JUL 07) Glu R H 212 (JUL 09) H 218 (JUL 08) H 187 (JUL 07) Ca 9.0 (JUL 09) 9.0 (JUL 08) 8.9 (JUL 07) Lactic 1.7 (JUL 08) PT 10.5 (JUL 07) INR 1.0 (JUL 07) PTT 32.0 (JUL 07) AST 18 (JUL 07) ALT 27 (JUL 07) ALK P 109 (JUL 07) T Bili 0.4 (JUL 07) PTN 7.6 (JUL 07) ALB L 3.2 (JUL 07) Troponin <0.015 (JUL 08) <0.015 (JUL 07) . Radiology Results (Last 48 hours) [id number] -- 07/07/2020 18:23 CTA Chest PE Protocol [...] Cardiac H/O CAD with CABG ID Recent COVID19 Pneumonia- May 2020 Renal Stable Endo Diabetes mellitus PLAN: Oxygen supplementation if needed for sat 90%-94% Add Tranexamic nebs q8 x 3 doses Add short course of prednisone 40mg PO x 5 days Add Dextromethorphan/guaifenesin 30-600mg 1-2 tablets BID for antitussive ABX per ID No need for antimicrobial therapy at this time, doubt pneumonia Prophylaxis: SCDs Glycemic control per primary Needs follow up CT Chest in 6 month for pulmonary nodules follow up. Patient with smoking hx. Discussed with Mr Gregg Pulmonary will sign off, recall if needed. 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
--- OUTSIDE RECORDS SUMMARY | 2025-05-05 12:25 | XMS_ITS | Encounter Summary ---
Author Organization [employer] ([place], [place], [place], [place]) Address [address] [place] [address] Care Team Providers Care [place] Measurer Name Role Phone Annalise Muro DO Primary Care Provider [phone] Chuck Mei PA-C Unavailable [phone] Encounter Details Date Type Department Care Team (Late st Contact Info) Description 07/10/2020 Transcribed Document [facility] [address] [place] [address] ProviderLars MD [address] [place] [address] Social History Tobacco Use Types [...] Jeffries MD - 07/10/2020 10:15 AM CDT [facility] [place] [address] ROSARIO GREGG :1960 Visit Time:07/07/2020 Your Visit Summary Your Care Team Admitting Physician - PAUL TURCIOS DO-INT Attending Physician - MICKI LAZAR MD-INT Primary Care Physician - ANNALISE MURO DO-FAM Referring Physician - COLUMBA PARRA MD-EMR Your Diagnosis Cough - Major hemoptysis, Cough - Major hemoptysis Hemoptysis, Hemoptysis, Hemoptysis Discharge Vitals Temperature 36.7 ??C Heart Rate 87 Respiratory Rate 14 Blood Pressure 116/62 What to do next Instructions From Your Care Team STOP taking the following medications (may resume in 2 weeks): 1. Diclofenac 2. Brilinta (ticagrelor) 3. Aspirin Discharge Follow Up Instructions: Hold Asprin and Brilinta for 2 weeks. Activity: Discharge Activity: Activity as tolerated Diet: Discharge Diet: Diabetic diet (carb controlled) Follow-Up Appointments Follow Up with ANNALISE MURO When Within 1 to 2 weeks Where: [address] [place] [address]- Business (1) Follow Up with ISABEL MOON When Within 1 month Where: [address] [facility] [address] [place] [address]- Business (1) Medications What How Much When Instructions Next Dose levoFLOXacin (levoFLOXacin 500 mg oral tablet) 1 Tablet(s) Oral Every Day Duration: 7 Day(s) Printed Prescription 07/11 predniSONE (predniSONE 20 mg oral tablet) 2 Tablet(s) Oral Every Day Duration: 5 Day(s) Printed Prescription 07/11 albuterol-ipratropium (Combivent Respimat CFC free 100 mcg-20 mcg/ inh inhalation aerosol) 1 Puff(s) Inhalation Four Times A Day Duration: 30 Day(s) albuterol-ipratropium (DuoNeb 0.5 mg-2.5 mg/ 3 mL inhalation solution) 3 Milliliter(s) Nebulized Inhalation Every 6 Hours as needed for as needed for shortness of breath or wheezing Printed Prescription atorvastatin (atorvastatin 40 mg oral tablet) 1 Tablet(s) Oral At Bedtime Duration: 90 Day(s) 10/30 PM aspirin (aspirin 81 mg oral delayed release tablet) 1 Tablet(s) Oral Every Day Hold for 2 weeks budesonide-formoterol (Symbicort 160 mcg-4.5 mcg/ inh inhalation aerosol) 2 Puff(s) Inhalation Two Times A Day Duration: 30 Day(s) cholecalciferol (Vitamin D3 5000 units oral capsule) 1 Capsule(s) Oral Every Day with food 07/11 dulaglutide (Trulicity Pen 1.5 mg/ 0.5 mL subcutaneous solution) 0.75 Milligram(s) SubCutaneous Duration: 30 Day(s) empagliflozin (Jardiance 10 mg oral tablet) 1 Tablet(s) Oral Every Morning Duration: 90 Day(s) famotidine (famotidine 20 mg oral tablet) 1 Tablet(s) Oral Every Day Duration: 30 Day(s) 07/11 furosemide (furosemide 20 mg oral tablet) 1 Tablet(s) Oral Every Day Duration: 90 Day(s) 07/11 insulin glargine (Lantus 100 units/ mL subcutaneous solution) 75 Unit(s) SubCutaneous Every Day Duration: 90 Day(s) lisinopril (lisinopril 5 mg oral tablet) 1 Tablet(s) Oral Every Day metFORMIN (metFORMIN 1000 mg oral tablet) 1 Tablet(s) Oral Every Day metoprolol (Metoprolol Tartrate 50 mg oral tablet) 1 Tablet(s) Oral Two Times A Day 07/10 PM montelukast (Singulair 10 mg oral tablet) 1 Tablet(s) Oral At Bedtime Duration: 90 Day(s) 07/10 PM multivitamin 1 Tablet(s) Oral Every Day 07/11 tamsulosin (tamsulosin 0.4 mg oral capsule) 1 Capsule(s) Oral Every Day Duration: 90 Day(s) 07/11 ticagrelor (Brilinta (ticagrelor) 90 mg oral tablet) 1 Tablet(s) Oral Two Times A Day Duration: 90 Day(s) Hold for 2 weeks Take your medications faithfully. Do NOT skip [...] This Visit No Immunizations Found Education Materials Cough, Adult A cough helps to clear your throat and lungs. A cough may be a sign of an illness or another medical condition. An acute cough may only last 2???3 weeks, while a chronic cough may last [...] these instructions at home: Medicines ??? Take xmaw-rcx-sqswluf and prescription medicines only as told by [...] Your cough does not get better after 2???3 weeks, or your cough gets worse. ??? [...] things can cause a cough. ??? Take udcn-dvp-nowezjo and prescription medicines only as told by [...] 05/10/2012 Document Revised: 09/16/2019 Document Reviewed: 09/16/2019 [employer] Patient Education ?? 2020 [employer] Hemoptysis Hemoptysis is when you cough up blood. It can be mild or serious. If it is mild, you may cough up bloody spit and mucus (sputum). If you cough up 1???2 cups (240???480 mL) of blood within 24 hours (massive hemoptysis), it is an emergency. If you cough up blood, it is important to go and see your doctor. Follow these instructions at home: ??? Watch your condition for any changes. ??? Take sbuo-wuc-qudvatr and prescription medicines only as told by [...] 08/14/2013 Document Revised: 08/10/2018 Document Reviewed: 05/26/2017 [employer] Patient Education ?? 2020 [employer] Emergency Awareness and Preventative Care STROKE is [...] Assistance with quitting is available by contacting -NOW. This is a free resource providing counseling, [...] This Visit (last charted value for your 07/07/2020 visit) Hematology 07/09/2020 7:07 AM WBC: 11.4 K/uL -- Normal range between ( 3.6 and 9.5 ) RBC: 4.50 Million/uL -- Normal range between ( 4.20 and 5.70 ) Hct: 39.3 % -- Normal range between ( 40.1 and 51.0 ) Hgb: 12.9 g/dL -- Normal range between ( 13.5 and 17.3 ) Platelet Count: 364 K/uL -- Normal range between ( 163 and 369 ) MCH: 28.7 pg -- Normal range between ( 25.6 and 32.2 ) MCHC: 32.8 Gram/dL -- Normal range between ( 32.2 and 36.5 ) MCV: 87.3 fL -- Normal range between ( 79.0 and 94.8 ) Slide Review: No RDW: 13.7 % -- Normal range between ( 11.7 and 14.9 ) MPV: 9.4 fL -- Normal range between ( 9.4 and 12.4 ) 07/08/2020 4:11 AM Eos %: 0.8 % -- Normal range between ( 0.0 and 7.0 ) Republic #: 0.21 K/uL -- Normal range between ( 0.16 and 1.00 ) Eos #: 0.06 x10(3)/uL -- Normal range between ( 0.00 and 0.80 ) Republic %: 2.8 % -- Normal range between ( 3.0 and 9.0 ) Baso %: 0.3 % -- Normal range between ( 0.0 and 1.5 ) Baso #: 0.02 x10(3)/uL -- Normal range between ( 0.00 and 0.20 ) Neut %: 81.9 % -- Normal range between ( 34.0 and 71.0 ) Neut #: 6.05 K/uL -- Normal range between ( 1.56 and 6.13 ) Lymph %: 13.4 % -- Normal range between ( 19.3 and 53.1 ) Lymph #: 0.99 x10(3)/uL -- Normal range between ( 1.00 and 3.90 ) IG#: 0.06 x10(3)/uL -- Normal range between ( 0.00 and 0.05 ) IG%: 0.80 % -- Normal range between ( 0.00 and 0.60 ) Microbiology 07/08/2020 9:34 AM Influenza A: Not Detected Respiratory Syncytial Virus: Not Detected Influenza B: Not Detected Influenza A H3: Not Detected Parainfluenza 3: Not Detected Influenza A H1: Not Detected Rhinovirus/Enterovirus: Not Detected Human metapneumovirus: Not Detected Parainfluenza 1: Not Detected Parainfluenza 2: Not Detected Adenovirus: Not Detected Parainfluenza 4: Not Detected Bordatella pertussis: Not Detected Coronavirus HKU1: Not Detected Coronavirus NL63: Not Detected Coronavirus OC43: Not Detected Coronavirus 229E: Not Detected Influenza A 2009 H1N1: Not Detected Mycoplasma pneumoniae: Not Detected Chlamydia pneumoniae: Not Detected 07/07/2020 4:22 PM Novel Coronavirus 2019: Negative General Chemistry 07/10/2020 5:50 AM Glucose POC2: 269 mg/dL -- Normal range between ( 70 and 110 ) Device Comment 2: Received [employer] Device Comment 1: Device Comment 1 07/09/2020 7:07 AM Creatinine Level: 0.90 mg/dL -- Normal range between ( 0.70 and 1.30 ) Sodium Level: 136 mmol/L -- Normal range between ( 136 and 146 ) Potassium Level: 4.3 mmol/L -- Normal range between ( 3.5 and 5.1 ) Chloride Level: 107 mmol/L -- Normal range between ( 102 and 112 ) Carbon Dioxide Level: 26 mmol/L -- Normal range between ( 21 and 32 ) Anion Gap: 7 -- Normal range between ( 9 and 20 ) Bun/Creatinine: 14.4 -- Normal range between ( 8.0 and 20.0 ) Calcium Level: 9.0 mg/dL -- Normal range between ( 8.4 and 10.1 ) eGFR : >60 mL/min/1.73m2 eGFR NonAfrican: >60 mL/min/1.73m2 Glucose Level: 212 mg/dL -- Normal range between ( 74 and 106 ) Blood Urea Nitrogen: 13 mg/dL -- Normal range between ( 7 and 22 ) 07/08/2020 4:11 AM Magnesium Level: 2.3 mg/dL -- Normal range between ( 1.5 and 2.4 ) Lactic Acid Level: 1.7 mmol/L -- Normal range between ( 0.4 and 2.0 ) 07/07/2020 2:48 PM Bilirubin Total: 0.4 mg/dL -- Normal range between ( 0.2 and 1.2 ) A/G Ratio: 0.7 -- Normal range between ( 1.1 and 2.5 ) ALT: 27 Units/Liter -- Normal range between ( 16 and 61 ) AST: 18 Units/Liter -- Normal range between ( 5 and 37 ) Globulin: 4.4 Gram/dL -- Normal range between ( 1.5 and 4.5 ) Alk Phos: 109 Units/Liter -- Normal range between ( 27 and 136 ) Protein Total: 7.6 Gram/dL -- Normal range between ( 6.4 and 8.2 ) Albumin Level: 3.2 Gram/dL -- Normal range between ( 3.4 and 5.0 ) Cardiac Specific Markers 07/08/2020 4:11 AM Troponin I Ultra: <0.015 ng/mL -- Normal range between ( 0.015 and 0.045 ) ProBNP: 31 pg/mL -- Normal range between ( 0 and 125 ) Coagulation 07/07/2020 2:48 PM INR: 1.0 -- Normal range between ( 0.9 and 1.1 ) PTT: 32.0 Second(s) -- Normal range between ( 24.0 and 34.0 ) PT: 10.5 Second(s) -- Normal range between ( 9.6 and 12.0 ) Endocrinology 07/07/2020 10:07 PM Procalcitonin: <0.25 ng/mL -- Normal range between ( 0.00 and 2.00 ) Computed Tomography 07/07/2020 4:00 PM CTA Chest PE Protocol: CTA Chest PE Protocol Patient Name:ROSARIO GREGG I have received and understand this information and was given the opportunity to ask questions. Patient/Pathology Laboratory Director Name: Patient/Pathology Laboratory Director Signature: Relationship to Patient: Clinician/Hospital Pathology Laboratory Director Signature: Date: documented in this encounter Plan of Treatment Not on file documented as of this encounter Visit Diagnoses Not on filedocumented in this encounter Additional Health Concerns Infection Onset Date Last Indicated Resolved Time MRSA (C) 06/11/2023 06/11/2023 documented as of this encounter Care Teams [place] Measurer Relationship Specialty Start Date End Date Annalise Muro, [address] [place] [id number] PCP - General Family Medicine 06/06/23 Chuck Mei PA-C [address], [facility] [address] [place] [address] Cardiology 11/01/23 documented as of this encounter
--- OUTSIDE RECORDS SUMMARY | 2025-05-05 12:26 | XMS_ITS | Encounter Summary ---
Author Organization [employer] ([place], [place], [place], [place]) Address [address] [place] [address] Care Team Providers Care Apprenticeship Training Representative Name Role Phone Annalise Carter DO Primary Care Provider [phone] Chuck Mei PA-C Unavailable [phone] Encounter Details Date Type Department Care Team (Late st Contact Info) Description 05/23/2020 Transcribed Document [facility] [place] [facility] [place] [address] ProviderLars MD [address] [place] [address] Social History Tobacco Use Types Packs/Day [...] ProviderMD - 05/23/2020 8:16 AM CDT ED Triage Entered On: 05/23/2020 8:21 EDT Performed On: 05/23/2020 8:17 EDT by KAMALA ISLAS RN ED Triage Across the Room Chief Complaint : COVID positive patient from home via [facility] due to SOA- Initial SPO2 88% RA, increased to 95 % via 2 LNC. Wheezing to upper lobes perr EMS. Triage Date/Time : 05/23/2020 8:17 EDT KAMALA ISLAS RN - 05/23/2020 8:17 EDT DCP GENERIC CODE Tracking Acuity : 2 - Emergent Tracking Group : [facility] ED KAMALA ISLAS RN - 05/23/2020 8:17 EDT Mode of Arrival : Stretcher Transported to ED by : Ambulance/ALS EMS Service : [facility] To Room Via : Stretcher Accompanied By : fiberglass boat parts finisher ED Vital Signs : Document Height & Weight : Document ED Allergies : Document ED Reason for Visit : Document Tetanus Immunization : Greater than 5 years KAMALA ISLAS RN - 05/23/2020 8:17 EDT Infectious Disease History Has the patient ever been tested for COVID-19? : Yes, Patient stated results Positive Date of COVID-19 test known? : Yes Date of COVID-19 Test : 05/19/2020 EDT Does patient have symptoms of COVID-19? : Yes COVID19 Screening : No Experiencing Infectious Disease Symptoms : Difficulty breathing, Cough Physical contact outside [place] in the last 30 days : No Infectious Disease History : Chicken pox/Shingles, Measles, Meningitis, Mumps, Pertussis (Whooping cough) Tuberculosis Symptoms : Fatigue KAMALA ISLAS RN - 05/23/2020 8:17 EDT Vital Signs ED Temperature Source : Oral Temperature Mode : Fahrenheit Temperature, Fahrenheit : 99.5 Deg F ED Pain : No Clinical Temperature, C : 37.5 Deg C Oxygen Therapy Mode : Room air Peripheral Pulse Rate : 109 bpm (HI) Respiratory Rate : 19 Breaths/Min Systolic Blood Pressure : 156 mmHg (HI) Diastolic Blood Pressure : 70 mmHg Oxygen Saturation : 92 % (LOW) KAMALA ISLAS RN - 05/23/2020 8:17 EDT Allergy (As Of: 05/23/2020 08:21:19 EDT) Allergies (Active) morphine Estimated Onset Date: Unspecified ; Created By: Contributor_system HIST_MIGUEL; Reaction Status: Active ; Category: Drug ; Substance: morphine ; Type: Allergy ; Updated By: Contributor_franc HIST_MIGUEL; Reviewed Date: 05/23/2020 8:17 EDT Diagnosis Control ED (As Of: 05/23/2020 08:21:19 EDT) Problems(Active) Arthritis (SNOMED CT :0757751 ) Name of Problem: Arthritis ; Recorder: JAKE AHMADI RN; Confirmation: Confirmed ; Classification: Patient Stated ; Code: [id number] ; Contributor System: PowerChart ; Last Updated: 11/17/2016 12:24 EST ; Life Cycle Date: 11/17/2016 ; Life Cycle Status: Active ; Vocabulary: SNOMED CT CAD - Coronary artery disease (SNOMED CT :7061500225 ) Name of Problem: CAD - Coronary artery disease ; Recorder: LEONIE MCGEE APRN; Confirmation: Confirmed ; Classification: Medical ; Code: [id number] ; Contributor System: PowerChart ; Last Updated: 11/17/2016 13:51 EST ; Life Cycle Date: 11/17/2016 ; Life Cycle Status: Active ; Vocabulary: SNOMED CT Cataract (SNOMED CT :48705910-[id number] ) Name of Problem: Cataract ; Recorder: JAKE AHMADI RN; Confirmation: Confirmed ; Classification: Patient Stated ; Code: [id number] ; Contributor System: PowerChart ; Last Updated: 11/17/2016 12:22 EST ; Life Cycle Date: 11/17/2016 ; Life Cycle Status: Active ; Vocabulary: SNOMED CT Chronic anxiety (SNOMED CT :703794882 ) Name of Problem: Chronic anxiety ; Recorder: JAKE AHMADI RN; Confirmation: Confirmed ; Classification: Patient Stated ; Code: [id number] ; Contributor System: PowerChart ; Last Updated: 11/17/2016 12:25 EST ; Life Cycle Date: 11/17/2016 ; Life Cycle Status: Active ; Vocabulary: SNOMED CT Chronic depression (SNOMED CT :889104631 ) Name of Problem: Chronic depression ; Recorder: JAKE AHMADI RN; Confirmation: Confirmed ; Classification: Patient Stated ; Code: 251290900 ; Contributor System: PowerChart ; Last Updated: 11/17/2016 12:25 EST ; Life Cycle Date: 11/17/2016 ; Life Cycle Status: Active ; Vocabulary: SNOMED CT Coronary artery disease (SNOMED CT :7178433881 ) Name of Problem: Coronary artery disease ; Recorder: JAKE AHMADI RN; Confirmation: Confirmed ; Classification: Patient Stated ; Code: [id number] ; Contributor System: PowerChart ; Last Updated: 11/17/2016 12:23 EST ; Life Cycle Date: 11/17/2016 ; Life Cycle Status: Active ; Vocabulary: SNOMED CT Diabetes mellitus (SNOMED CT :636896129 ) Name of Problem: Diabetes mellitus ; Recorder: LEONIE MCGEE APRN; Confirmation: Confirmed ; Classification: Medical ; Code: 550414409 ; Contributor System: [employer]Chart ; Last Updated: 11/17/2016 13:52 EST ; Life Cycle Date: 11/17/2016 ; Life Cycle Status: Active ; Vocabulary: SNOMED CT Diabetes mellitus type II (SNOMED CT :43175854 ) Name of Problem: Diabetes mellitus type II ; Recorder: JAKE AHMADI RN; Confirmation: Confirmed ; Classification: Patient Stated ; Code: 53781309 ; Contributor System: [employer]Chart ; Last Updated: 11/17/2016 12:24 EST ; Life Cycle Date: 11/17/2016 ; Life Cycle Status: Active ; Vocabulary: SNOMED CT Disorder of prostate (SNOMED CT :45703557 ) Name of Problem: Disorder of prostate ; Recorder: JAKE AHMADI RN; Confirmation: Confirmed ; Classification: Patient Stated ; Code: 77842669 ; Contributor System: PowerChart ; Last Updated: 11/17/2016 12:24 EST ; Life Cycle Date: 11/17/2016 ; Life Cycle Status: Active ; Vocabulary: SNOMED CT Glaucoma (SNOMED CT :50720938 ) Name of Problem: Glaucoma ; Recorder: JAKE AHMADI RN; Confirmation: Confirmed ; Classification: Patient Stated ; Code: 30576075 ; Contributor System: PowerChart ; Last Updated: 11/17/2016 12:22 EST ; Life Cycle Date: 11/17/2016 ; Life Cycle Status: Active ; Vocabulary: SNOMED CT Hard of hearing (SNOMED CT :875111415 ) Name of Problem: Hard of hearing ; Recorder: JAKE AHMADI RN; Confirmation: Confirmed ; Classification: Patient Stated ; Code: 781069109 ; Contributor System: [employer] ; Last Updated: 11/17/2016 12:22 EST ; Life Cycle Date: 11/17/2016 ; Life Cycle Status: Active ; Vocabulary: SNOMED CT Heart valve (SNOMED CT :444091601 ) Name of Problem: Heart valve ; Recorder: JAKE AHMADI RN; Confirmation: Confirmed ; Classification: Patient Stated ; Code: 545760387 ; Contributor System: PowerChart ; Last Updated: 11/17/2016 12:23 EST ; Life Cycle Date: 11/17/2016 ; Life Cycle Status: Active ; Vocabulary: SNOMED CT HLD - Hyperlipidemia (SNOMED CT :475743383 ) Name of Problem: HLD - Hyperlipidemia ; Recorder: SWEET BRIAR; Confirmation: Confirmed ; Classification: Medical ; Code: 218288627 ; Contributor System: PowerChart ; Last Updated: 11/17/2016 13:52 EST ; Life Cycle Date: 11/17/2016 ; Life Cycle Status: Active ; Vocabulary: SNOMED CT HTN (hypertension) (SNOMED CT :9563CC1T-[id number] ) Name of Problem: HTN (hypertension) ; Recorder: SWEET BRIAR; Confirmation: Confirmed ; Classification: Medical ; Code: [id number] ; Contributor System: PowerChart ; Last Updated: 11/17/2016 13:51 EST ; Life Cycle Date: 11/17/2016 ; Life Cycle Status: Active ; Vocabulary: SNOMED CT Hyperlipidemia (SNOMED CT :70453678 ) Name of Problem: Hyperlipidemia ; Recorder: JAKE AHMADI RN; Confirmation: Confirmed ; Classification: Patient Stated ; Code: 78771179 ; Contributor System: PowerChart ; Last Updated: 11/17/2016 12:23 EST ; Life Cycle Date: 11/17/2016 ; Life Cycle Status: Active ; Vocabulary: SNOMED CT Hypertension (SNOMED CT :38058112 ) Name of Problem: Hypertension ; Recorder: JAKE AHMADI RN; Confirmation: Confirmed ; Classification: Patient Stated ; Code: 92580458 ; Contributor System: PowerChart ; Last Updated: 11/17/2016 12:23 EST ; Life Cycle Date: 11/17/2016 ; Life Cycle Status: Active ; Vocabulary: SNOMED CT Pneumonia (SNOMED CT :733326839 ) Name of Problem: Pneumonia ; Recorder: JAKE AHMADI RN; Confirmation: Confirmed ; Classification: Patient Stated ; Code: 885343028 ; Contributor System: PowerChart ; Last Updated: 11/17/2016 12:23 EST ; Life Cycle Date: 11/17/2016 ; Life Cycle Status: Active ; Vocabulary: SNOMED CT Renal calculus (SNOMED CT :281046850 ) Name of Problem: Renal calculus ; Recorder: JAKE AHMADI RN; Confirmation: Confirmed ; Classification: Patient Stated ; Code: 789373497 ; Contributor System: plista ; Last Updated: 11/17/2016 12:24 EST ; Life Cycle Date: 11/17/2016 ; Life Cycle Status: Active ; Vocabulary: SNOMED CT Sleep apnea (SNOMED CT :486566423 ) Name of Problem: Sleep apnea ; Recorder: JAKE AHMADI RN; Confirmation: Confirmed ; Classification: Patient Stated ; Code: 540619790 ; Contributor System: plista ; Last Updated: 11/17/2016 12:23 EST ; Life Cycle Date: 11/17/2016 ; Life Cycle Status: Active ; Vocabulary: SNOMED CT Stented coronary artery (SNOMED CT :2674153809 ) Name of Problem: Stented coronary artery ; Recorder: JAKE AHMADI RN; Confirmation: Confirmed ; Classification: Patient Stated ; Code: 4926705527 ; Contributor System: plista ; Last Updated: 11/17/2016 12:23 EST ; Life Cycle Date: 11/17/2016 ; Life Cycle Status: Active ; Vocabulary: SNOMED CT Diagnoses(Active) Shortness of breath Date: 05/23/2020 ; Diagnosis Type: Reason For Visit ; Confirmation: Complaint of ; Clinical Dx: Shortness of breath ; Classification: Medical ; Clinical Service: Emergency medicine ; Code: PNED ; Probability: 0 ; Diagnosis Code: [id number] ED Height and Weight Height Source : Stated Height Entry Format : Wisner Height, Feet : 5 ft(Converted to: 152 cm, 60 Inch) Height, Inches : 9 Inch(Converted to: 0 ft 9 Inch, 22.86 cm) Clinical Height : 175.26 cm Weight Source, ED : Critical estimated dosing weight Weight Entry Format : Wisner Weight, Pounds : 224 lb Clinical Dosing Weight : 101.82 kg Body Surface Area (BSA) : 2.17 m2 Body Mass Index : 33.1 kg/m2 (HI) [place] Body Weight (IBW) : 69.73 kg STIVEN ISLASA, CICI - 05/23/2020 8:17 EDT Electronically signed by [facility] Conversion Job Developer Cerner at 12/27/2022 11:54 AM CDT documented in this encounter Plan of Treatment Not on file documented as of this encounter Visit Diagnoses Not on filedocumented in this encounter Additional Health Concerns Infection Onset Date Last Indicated Resolved Time 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
--- OUTSIDE RECORDS SUMMARY | 2025-05-05 12:26 | XMS_ITS | Encounter Summary ---
Author Organization [employer] ([place], [place], [place], [place]) Address [address] [place] [address] Care Team Providers Care Reinforcing Steel Worker Name Role Phone Annalise Carter DO Primary Care Provider [phone] Chuck Mei PA-C Unavailable [phone] Encounter Details Date Type Department Care Team (Late st Contact Info) Description 05/27/2020 Transcribed Document [facility] [place] [facility] [place] [address] ProviderLars MD [address] [place] [address] Social History Tobacco Use Types [...] Conversion Note - Lars ProviderMD - 05/27/2020 7:32 AM CDT On Going Discharge Planning Entered On: 05/27/2020 7:33 EDT Performed On: 05/27/2020 7:32 EDT by MERLYN HERNANDEZ, RN-Lead Manufacturing Engineering TechProject Inspector Progress Note Discharge Arrangements : Patient Post-Acute Information Patient Name: ROSARIO GREGG Gender: Male : 56 Age: 59 Years No Post-Acute Placement(s) Listed No Post-Acute Service(s) Listed No [place] Referral(s) Listed Discharge Options Discussed with Patient : Acute rehabilitation, Home Health, longterm rehabilitation, alf MERLYN HERNANDEZ, RN-Lead Manufacturing Engineering Tech - 05/27/2020 7:32 EDT Narrative Progress Note Narrative Progress Note : MDR 9-15. covid: 19 positive. orders for PT/OT. transfer to . referral to [facility] for rehab. discuss with case management staff. 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
--- OUTSIDE RECORDS SUMMARY | 2025-05-05 12:26 | XMS_ITS | Encounter Summary ---
Author Organization [employer] ([place], [place], [place], [place]) Address [address] [place] [address] Care Team Providers Care Self Sealing Fuel Tank Builder Name Role Phone Annalise Carter DO Primary Care Provider [phone] Chuck Mei PA-C Unavailable [phone] Encounter Details Date Type Department Care Team (Late st Contact Info) Description 05/23/2020 Transcribed Document [facility] [place] [facility] [address] ProviderLars MD [address] [place] [address] Social History Tobacco Use Types [...] Conversion Note - Historical ProviderMD - 05/23/2020 11:31 AM CDT Consult Phone Call Documentation Entered On: 05/23/2020 18:17 EDT Performed On: 05/23/2020 11:31 EDT by Federico Landon [facility] Magistrate-Health Unit Coord Phone Call for Consults Consult Phone Call/Page Attempt : First call Federico Landon [facility] Magistrate-Health Unit Coord - 05/23/2020 18:17 EDT documented in this encounter Plan of Treatment Not on file documented as of this encounter Visit Diagnoses Not on filedocumented in this encounter Additional Health Concerns Infection Onset Date Last Indicated Resolved Time MRSA (C) 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
--- OUTSIDE RECORDS SUMMARY | 2025-05-05 12:26 | XMS_ITS | Encounter Summary ---
Author Organization [employer] ([place], [place], [place], [place]) Address [address] [place] [address] Care Team Providers Care Blocker And Polisher Gold Wheel Name Role Phone Annalise Carter DO Primary Care Provider [phone] Chuck Mei PA-C Unavailable [phone] Encounter Details Date Type Department Care Team (Late st Contact Info) Description 05/23/2020 Transcribed Document [facility] [place] Family Medicine [facility] [place] [address] ProviderLars MD [address] [place] [address] Social History Tobacco Use Types [...] Conversion Note - Lars ProviderMD - 05/23/2020 8:10 PM CDT Event Note Entered On: 05/23/2020 20:12 EDT Performed On: 05/23/2020 20:10 EDT by Aparna Rockwell Registered Nurse Event Note Event Date/Time : 05/23/2020 18:30 EDT Description of Event : Patient was transferred to CCU 12 on 4L NC O2 Sat 86-88% sustained. Patient's oxygen requirement up to 15 L HiFlo NC and then non rebreather by 1900. O2 Sat 89-90% with nonrebreather. Respiratory rate between 12-22 taking shallow breaths. notified, orders received to alternate between bipap and optiflo. Will continue to monitor and call if anything changes. 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
--- OUTSIDE RECORDS SUMMARY | 2025-05-05 12:26 | XMS_ITS | Encounter Summary ---
Author Organization [employer] ([place], [place], [place], [place]) Address [address] [place] [address] Care Team Providers Care Umbrella Frame Maker Name Role Phone Emma Annalise Bre BENITEZ Primary Care Provider [phone] Chuck Mei PA-C Unavailable [phone] Encounter Details Date Type Department Care Team (Late st Contact Info) Description 05/27/2020 Transcribed Document [facility] Pulm & Critical Care Medicine [address] [facility] [address] [place] [address] Orville Moon MD [address] [facility] [address] [place] [address] Social History Tobacco Use Types Packs/Day Years [...] Conversion Note - Orville Moon MD - 05/27/2020 10:25 AM EDT Patient: ROSARIO GREGG Age: 59 [...] for COVID 19 this past Monday in [place], [place]. He presented to ER with shortness [...] with good UOP. Wants to go home. Review of Systems Overall feeling better Health Status Allergies: Allergic [...] PRN: Dry Eyes Lantus: 30 Units, SubCutaneous, [id number] Lasix: 20 mg, IV Push, Daily Lopressor: 50 mg, Oral, BID Lovenox: 30 mg, SubCutaneous, [id number] Mucinex: 600 mg, Oral, BID Nitrostat: 0.4 [...] (See Comment) remdesivir: 250 mL/Hr, IV Piggyback, [id number] sodium phosphate: 15 mMole, 5 mL, 50 [...] ml inj 30 mg 0.3 mL, SubCutaneous, [id number] famotidine 20 mg tab 20 mg 1 Tab, Oral, BID furosemide 20 mg/2 mL inj 20 mg 2 mL, IV Push, Daily guaiFENesin 600 mg ER tab 600 mg 1 Tab, Oral, BID insulin glargine 1 unit/0.01 mL inj 30 Units 0.3 mL, SubCutaneous, [id number] insulin lispro 1 unit/0.01 mL inj Scale D:, SubCutaneous, AC and at Bedtime lisinopril 5 mg tab 5 mg 1 Tab, Oral, Daily metoprolol tartrate 50 mg tab 50 mg 1 Tab, Oral, BID mometasone/formoterol 200/5 mcg inh 2 Puff, Inhalation, BID remdesivir , IV Piggyback, [id number] ticagrelor 90 mg tab 90 mg 1 [...] list: All Problems Arthritis / SNOMED CT 5716218 / Confirmed CAD - Coronary artery disease / SNOMED CT 0894174194 / Confirmed Cataract / SNOMED CT [id number] / Confirmed Chronic anxiety / SNOMED CT 750515858 / Confirmed Chronic depression / SNOMED CT 293129900 / Confirmed Coronary artery disease / SNOMED CT 8468328385 / Confirmed Diabetes mellitus / SNOMED CT 469369689 / Confirmed Diabetes mellitus type II / SNOMED CT 85888945 / Confirmed Disorder of prostate / SNOMED CT 71598827 / Confirmed Glaucoma / SNOMED CT 23905633 / Confirmed Hard of hearing / SNOMED CT 272420570 / Confirmed Heart valve / SNOMED CT 243012854 / Confirmed History of obstructive sleep apnea / IMO 32875910 / Confirmed HLD - Hyperlipidemia / SNOMED CT 807876251 / Confirmed HTN (hypertension) / SNOMED CT [id number] / Confirmed Hyperlipidemia / SNOMED CT 49176472 / Confirmed Hypertension / SNOMED CT 31742409 / Confirmed Pneumonia / SNOMED CT 177676065 / Confirmed Renal calculus / SNOMED CT 487592658 / Confirmed Sleep apnea / SNOMED CT 824357817 / Confirmed Stented coronary artery / SNOMED CT 3564085976 / Confirmed, Active Problems (21) Arthritis CAD [...] 24 hrs) Last Charted Minimum Maximum Temp 98.1 (MAY 16 04:45) 98.1 (MAY 27 04:45) 98.5 (MAY 26 12:00) Apical HR 80 (MAY 16 08:43) 67 (MAY 15 21:34) 80 (MAY 16 08:43) Mon HR 65 (MAY 16 08:08) 49 (MAY 16 00:10) 82 (MAY 15 13:00) Resp Rate 16 (MAY 16 08:08) L 7 (MAY 15 17:00) H 47 (MAY 15 22:30) SBP 123 (MAY 16 04:45) 104 (MAY 16 01:00) H 142 (MAY 15 18:00) DBP 82 (MAY 16 04:45) 64 (MAY 15 14:00) 82 (MAY 16 04:45) MAP 94 (MAY 16 04:45) 81 (MAY 15 10:00) 104 (MAY 15 18:00) SpO2 96 (MAY 16 08:08) L 90 (MAY 15 22:07) 97 (MAY 15 17:00) Review / Management Results review: Labs (Last four charted values) WBC H 11.3 (MAY 16) H 11.7 (MAY 15) H 11.6 (MAY 14) H 10.6 (MAY 13) HB L 13.2 (MAY 16) L 12.0 (MAY 15) L 11.8 (MAY 14) L 12.4 (SEP 13) HCT L 39.4 (SEP 16) L 36.7 (SEP 15) L 36.1 (SEP 14) L 37.1 (SEP 13) Plt 260 (SEP 16) 246 (SEP 15) 226 (SEP 14) 213 (SEP 13) Na 139 (SEP 16) 137 (SEP 15) 142 (SEP 14) 142 (SEP 13) K 4.5 (SEP 16) 4.2 (SEP 15) 4.9 (SEP 14) 3.7 (SEP 13) Cl 110 (SEP 16) 109 (SEP 15) H 114 (SEP 14) H 113 (SEP 13) CO2 23 (SEP 16) 23 (SEP 15) 22 (SEP 14) 24 (SEP 13) BUN 22 (SEP 16) H 28 (SEP 15) H 28 (SEP 14) 22 (SEP 13) Cr 0.80 (SEP 16) 0.90 (SEP 15) 1.00 (SEP 14) 1.00 (SEP 13) Glu R H 146 (SEP 16) H 271 (SEP 15) H 176 (SEP 14) H 198 (SEP 13) Ca L 8.2 (SEP 16) L 7.8 (SEP 15) 8.4 (SEP 14) L 7.9 (SEP 13) Lactic 1.0 (SEP 13) 1.5 (SEP 12) PT 10.8 (SEP 12) 10.9 (SEP 12) INR 1.0 (SEP 12) 1.0 (SEP 12) PTT 32.4 (SEP 12) AST 21 (SEP 14) 23 (SEP 13) 22 (SEP 12) ALT 25 (SEP 14) 27 (SEP 13) 27 (SEP 12) ALK P 67 (SEP 14) 67 (SEP 13) 63 (SEP 12) T Bili 0.3 (SEP 14) 0.4 (SEP 13) 0.5 (SEP 12) PTN 7.1 (SEP 14) 7.1 (SEP 13) 6.4 (SEP 12) ALB L 2.7 (SEP 14) L 2.7 (SEP 13) L 2.6 (SEP 12) Troponin <0.015 (SEP 13) <0.015 (SEP 12) . MAY 16 06:28 139 110 22 / H 146 4.5 23 0.80 \ Blood Gases (Current Encounter/Past 24 Hours) pH Art 7.46 HI 05/27/2020 07:28 pCO2 Art 31.3 LOW 05/27/2020 07:28 pO2 Art 67.6 LOW 05/27/2020 07:28 HCO3 Art 22.3 05/27/2020 07:25 BE Art -.7 05/27/2020 07:25 sO2 Art 94.5 LOW 05/27/2020 07:28 tHb Art 13.6 05/27/2020 07:25 FHHb 5.4 NA 05/27/2020 07:25 ctO2 17.9 NA 05/27/2020 07:25 Delivery Device Type Art Cannula NA 05/27/2020 07:25 Temperature, F Art 98.6 NA 05/27/2020 07:25 Art Blood Gas (ABG) Site Right Radial 05/27/2020 07:25 Acceptable Lincoln's Test Art Acceptable NA 05/27/2020 07:25 Ventilator Mode Art N/A NA 05/27/2020 07:25 Oxygen Flow Rate Art 4.0 NA 05/27/2020 07:25 ABG Num of Draw Attempts 1 NA 05/27/2020 07:25 Radiology Results (Last 48 hours) [id number] -- 05/23/2020 09:33 CR Chest 1 Vw Portable (05/26/2020 05:06) [...] agree with the above final transcribed report. Impression: Normal sized left ventricle. Moderate left ventricular hypertrophy. Visually estimated ejection fraction 55% +/- 5%. Normal systolic function. Normal left ventricular diastolic function. Mild left atrial enlargement. Dilated right ventricle. No masses or thrombi. RVSP 17 COVID-19 Positive Impression and Plan Acute Hypoxic Respiratory Failure COVID-19 Pneumonia Diffuse airspace and interstitial infiltrates ; no change Small bilateral pleural effusions Sleep Apnea not treated Previous smoker Cardiac: Negative troponin Normal BNP H/O CAD with CABG and stents ID: COVID -19 pneumonia Renal: Hypokalemia; resolved stable goal Endo: DM PLAN: Oxygen supplementation to keep sat 92-96% Alternate Optiflow with BiPAP when required Combivent two puff QID IS COVID -19 order set Mucinex 600 mg po BID Cardiology following Lasix 20 mg IV daily Fluid restriction at 1500 mm Blood cultures pending ID following: Dexamethasone per ID 6 mg IV daily until 06/02 Remdesivir started on May 23 until 05/28 S/P Convalescence plasma per ID on 05/23 Prophylaxis: Pepcid, Lovenox Glycemic control per primary: SSI, Lantus Labs in AM FULL CODE Prognosis: Guarded documented in this encounter Plan of Treatment Not on file documented as of this encounter Visit Diagnoses Not on filedocumented in this encounter Additional Health Concerns Infection Onset Date Last Indicated Resolved Time MRSA (C) 06/11/2023 06/11/2023 documented as of this encounter Care Teams Umbrella Frame Maker Relationship Specialty Start Date End Date Annalise Carter, DO [address] [facility] [address] [place] [address] PCP - General Family Medicine 06/06/23 Chuck Mei PA-C [address], [facility] [address] [place] [address] Cardiology 11/01/23 documented as of this encounter
--- OUTSIDE RECORDS SUMMARY | 2025-05-05 12:26 | XMS_ITS | Encounter Summary ---
Author Organization [employer] ([place], [place], [place], [place]) Address [address] [place] [address] Care Team Providers Care Telephone Lineman Name Role Phone Annalise Carter DO Primary Care Provider [phone] Chuck Mei PA-C Unavailable [phone] Encounter Details Date Type Department Care Team (Late st Contact Info) Description 05/23/2020 Transcribed Document [facility] Family Medicine [address] [place] [address] ProviderLars MD [address] [place] [address] Social History Tobacco Use Types Packs/Day Years [...] Lars ProviderMD - 05/23/2020 8:16 AM CDT Major Suicide Severity Rating Scale (C-SSRS) Entered On: 05/23/2020 9:07 EDT Performed On: 05/23/2020 9:04 EDT by MARTHA SULLIVAN RN-Resource Major Suicide Severity Rating Scale (C-SSRS) CSSRS Past Month Wish to be : No CSSRS Past Month Suicidal Thoughts : No CSSRS Lifetime Suicide Behavior : No Suicide Severity Rating Score : 0 Suicide Severity Rating : No Additional Care Required at this time MARTHA SULLIVAN RN-Resource - 05/23/2020 9:04 EDT documented in this encounter Plan of Treatment Not on file documented as of this encounter Visit Diagnoses Not on filedocumented in this encounter Additional Health Concerns Infection Onset Date Last Indicated Resolved Time MRSA (C) 06/11/2023 06/11/2023 documented as of this encounter Care Teams Telephone Lineman Relationship Specialty Start Date End Date Annalise Carter, [address] [facility] [address] [place] [address] PCP - General Family Medicine 06/06/23 Chuck Mei PA-C [address], [facility] [address] [place] [address] Cardiology 11/01/23 documented as of this encounter
--- OUTSIDE RECORDS SUMMARY | 2025-05-05 12:26 | XMS_ITS | Encounter Summary ---
Author Organization [employer] ([place], [place], [place], [place]) Address [address] [place] [address] Care Team Providers Care Book Trimmer Name Role Phone Annalise Muro DO Primary Care Provider Chuck Mei PA-C Unavailable [phone] Encounter Details Date Type Department Care Team (Late st Contact Info) Description 05/23/2020 Transcribed Document [facility] Family Medicine [facility] [place] [address] ProviderLars MD [address] [place] [address] Social History Tobacco Use Types Packs/Day [...] Conversion Note - Lars ProviderMD - 05/23/2020 10:33 AM CDT Patient: ROSARIO GREGG Age: 59 years Sex: Male : 1960 Associated Diagnoses: None Author: MICKI LAZAR MD-INT Basic Information ADMISSION HISTORY AND PHYSICAL DATE OF ADMISSION: Admit Date 05/23/2020 09:33 PRIMARY CARE PROVIDER: Primary Care Provider ANNALISE MURO DO-RAHUL Chief Complaint 1. Shortness of breath 2. Cough 05/23/2020 8:17 EDT COVID positive patient from home via [facility] due to SOA- Initial SPO2 88% RA, increased to 95 % via 2 LNC. Wheezing to upper lobes perr EMS. History of Present Illness Patient is a 59 year-old male with CAD who presents with difficulty breathing and cough. He has had respiratory symptoms for one week . Tested for COVID-19 on Monday, test results came back positive on Monday He reported fever, chills, cough, denies chest pain, denies nausea, denies vomiting, denies abdominal pain and denies back pain. Review of Systems Constitutional: Fever, No chills, No weakness. Eye: No recent visual problem, No discharge. Ear/Nose/Mouth/Throat: No decreased hearing, No nasal congestion, No sore throat. Respiratory: Shortness of breath, Cough, Wheezing, No sputum production. Cardiovascular: No chest pain, No peripheral edema. Gastrointestinal: No nausea, No vomiting, No diarrhea, No heartburn, No abdominal pain, No hematemesis. Genitourinary: No dysuria, No hematuria. Hematology/Lymphatics: No bruising tendency. Endocrine: No excessive thirst, No polyuria, No cold intolerance. Immunologic: Not immunocompromised, No recurrent fevers. Musculoskeletal: No neck pain, No muscle pain. Integumentary: No rash, No pruritus, No dryness. Neurologic: No numbness, No tingling. Psychiatric: No anxiety, No depression, Not suicidal. VASCULAR: No claudication Health Status Allergies: Allergic Reactions (Selected) Severity Not Documented Morphine- No reactions were documented., No qualifying data available Current medications: (Selected) Inpatient Medications Ordered Cardizem CD: 120 mg, Oral, 1-Time Combivent Respimat CFC free 100 mcg-20 mcg/inh inhalation aerosol: 1 Puff, Inhalation, RT_QID DuoNeb 0.5 mg-2.5 mg/3 mL inhalation solution: 3 mL, Nebulized Inhalation, RT_Q3H, PRN: Shortness of Breath Lasix: 20 mg, IV Push, BID Lasix: 40 mg, IV Push, 1-Time Lovenox: 40 mg, SubCutaneous, At Bedtime Mucinex: 600 mg, Oral, BID Nitrostat: 0.4 mg, SubLINgual, Q5Min, PRN: Chest Pain Normal Saline Flush: 10 mL, IV Push, See Comment Pepcid: 20 mg, Oral, BID Tylenol: 650 mg, Oral, Q4H, PRN: Pain (Mild 1-3) Zofran: 4 mg, IV Push, Q4H, PRN: Nausea/Vomiting cefTRIAXone: 2 Gram, 100 mL/Hr, IV Piggyback, [id number] doxycycline: 100 mg, Oral, BID formoterol-mometasone 5 mcg-200 mcg/inh inhalation aerosol: 2 Puff, Inhalation, BID insulin lispro sliding scale: Scale D:, SubCutaneous, AC and at Bedtime labetalol: 10 mg, IV Push, Q3H, PRN: Hypertension magnesium oxide: 800 mg, Oral, TID potassium chloride extended release: 20 mEq, Oral, QID Prescriptions Prescribed Brilinta (ticagrelor) 90 mg oral [...] Oral, Daily, 30 Cap, 0 Refill(s), Medications (19) Active Scheduled: (14) #NaCl 0.9% *FLUSH* inj 10 mL 10 mL, IV Push, See Comment albuterol-ipratropium CFC free 4 g inh 1 Puff, Inhalation, RT_QID cefTRIAXone 2 Gram, IV Piggyback, [id number] diltiazem CR24 120 mg cap 120 mg 1 Cap, Oral, 1-Time doxycycline hyclate 100 mg cap 100 mg 1 Cap, Oral, BID enoxaparin 40 mg/0.4 mL inj 40 mg 0.4 mL, SubCutaneous, At Bedtime famotidine 20 mg tab 20 mg 1 Tab, Oral, BID furosemide 20 mg/2 mL inj 20 mg 2 mL, IV Push, BID furosemide 40 mg/4 mL inj 40 mg 4 mL, IV Push, 1-Time guaiFENesin 600 mg ER tab 600 mg 1 Tab, Oral, BID insulin lispro 1 unit/0.01 mL inj Scale D:, SubCutaneous, AC and at Bedtime magnesium oxide 400 mg tab 800 mg 2 Tab, Oral, TID mometasone/formoterol 200/5 mcg inh 2 Puff, Inhalation, BID potassium chloride CR 20 mEq tab 20 mEq 1 Tab, Oral, QID Continuous: (0) PRN: (5) acetaminophen 325 mg tab 650 mg 2 [...] - Coronary artery disease / SNOMED CT 8862065714 / Confirmed Diabetes mellitus / SNOMED CT 407819099 / Confirmed HLD - Hyperlipidemia / SNOMED CT 354960046 / Confirmed HTN (hypertension) / SNOMED CT [id number] / Confirmed, Active Problems (20) Arthritis CAD - Coronary artery disease Cataract Chronic anxiety Chronic depression Coronary artery disease Diabetes mellitus Diabetes mellitus type II Disorder of prostate Glaucoma Hard of hearing Heart valve HLD - Hyperlipidemia HTN (hypertension) Hyperlipidemia Hypertension Pneumonia Renal calculus Sleep apnea Stented coronary artery Histories Past Medical History: Active CAD - Coronary artery disease (0285798378) HTN (hypertension) ([id number]) HLD - Hyperlipidemia (680955550) Diabetes mellitus (071024350) Family History: Dementia Father Mother , Significant for hypertension Procedure history: cabg. Social History Social & Psychosocial Habits Alcohol 11/17/2016 Alcohol Use History, Social Habits Yes Date/Time of Last Drink a little wine or beer 3 times a yr Alcohol Use Frequency Rarely Substance Abuse 11/17/2016 Recreational Drug Use History No Recreational Drug Use Last 12 Months No Tobacco 11/17/2016 Smoking Status Former smoker Month Tobacco Last Used Quit 6 years ago . Physical Examination VS/Measurements Vitals Signs (last 24 hrs) Last Charted Minimum Maximum Temp 99.5 (MAY 23 08:17) 99.5 (MAY 23 08:) 99.5 (MAY 23 08:) Mon HR 102 (MAY 23 10:58) 102 (MAY 23 10:00) 108 (MAY 23 09:00) Periph HR 109 (MAY 23 08:17) 109 (MAY 23 08:17) 109 (MAY 23 08:) Resp Rate L 13 (MAY 23 10:58) L 12 (MAY 23 09:30) H 27 (MAY 12 09:00) SBP H 163 (MAY 12 10:00) H 156 (MAY 23 08:17) H 189 (MAY 23 08:30) DBP 80 (MAY 23 10:00) 70 (MAY 23 08:17) H 91 (MAY 23 09:00) MAP 107 (MAY 12 10:00) 104 (MAY 12 09:30) 119 (MAY 12 09:00) SpO2 L 89 (MAY 23 10:58) L 89 (MAY 23 10:58) 95 (MAY 23 08:30) General: Alert and oriented, Mild distress. Eye: Pupils are equal, round and reactive to light, Extraocular movements are intact, Normal conjunctiva. HENT: Ear: Within normal limits. Nose: Both nostrils, Within normal limits. Neck: Supple, Non-tender, No jugular venous distention, No lymphadenopathy, No thyromegaly. Respiratory: Breath sounds are equal, Symmetrical chest wall expansion, No chest wall tenderness, [place];ateral rales . Respirations: Not tachypneic. Pattern: Regular. Breath sounds: Bilateral, Rales present, Rhonchi present, Wheezes present. Breath sounds: Rales present. Cardiovascular: S1, S2, No murmur, Non-displaced PMI. Arterial pulses: Bilateral, Posterior tibial, Dorsalis pedis, 3+. Capillary refill: Within normal limits. Gastrointestinal: Soft, Non-tender, Non-distended, Normal bowel sounds, No organomegaly. Genitourinary: No costovertebral angle tenderness. Musculoskeletal: Normal range of motion, Normal strength, No tenderness, No swelling. Integumentary: Warm. Neurologic: Alert, Oriented, Normal sensory, Normal motor function, Cranial Nerves II-XII are grossly intact. Cognition and Speech: Oriented, Speech clear and coherent. Psychiatric: Cooperative, Appropriate mood & affect. Review / Management Results review: Labs (Last four charted values) WBC 9.5 (MAY 23) HB 13.6 (MAY 23) HCT 41.3 (SEP 12) Plt 185 (SEP 12) Na 142 (SEP 12) K L 2.9 (SEP 12) Cl H 115 (SEP 12) CO2 21 (SEP 12) BUN 16 (SEP 12) Cr 1.00 (SEP 12) Glu R H 140 (MAY 12) Ca L 7.3 (SEP 12) Lactic 1.5 (SEP 12) AST 22 (SEP 12) ALT 27 (SEP 12) ALK P 63 (MAY 12) T Bili 0.5 (MAY 12) PTN 6.4 (MAY 12) ALB L 2.6 (MAY 12) . Radiology results MAY 23 08:29 142 H 115 16 / H 140 L 2.9 21 1.00 \ MAY 23 08:29 \ 13.6 / 9.5 185 / 41.3 \ RADIOLOGIC IMAGING: Radiology Results (Last 48 hours) [id number] -- 05/23/2020 09:33 CR Chest 1 Vw [...] agree with the above final transcribed report. Impression and Plan ASSESSMENT AND PLANS: Acute hypoxic respiratory failure secondary to COVID [...] FULL code. PLAN Placed on Optiflow oxygen --BiPAP Admit to Intensive care Unit Consult Pulmonary Remains Critically ill and at risk for Intubation Repeat COVID-19 will start IV Remdisivir Given Plasma Transfusion I sued Strict PPE precautions TIME SPENT : 55 minutes Critical Care Time documented in this encounter Plan of Treatment Not on file documented as of this encounter Visit Diagnoses Not on filedocumented in this encounter Additional Health Concerns Infection Onset Date Last Indicated Resolved Time MRSA (C) 06/11/2023 06/11/2023 documented as of this encounter Care Teams Book Trimmer Relationship Specialty Start Date End Date Annalise Muro, DO [address] [place] [address] PCP - General Family Medicine 06/06/23 Chuck Mei PA-C [address], [place] [address] [place] [address] Cardiology 11/01/23 documented as of this encounter
--- OUTSIDE RECORDS SUMMARY | 2025-05-05 12:26 | XMS_ITS | Encounter Summary ---
Author Organization [employer] ([place], [place], [place], [place]) Address [address] [place] [address] Care Team Providers Care Telegraph Editor Name Role Phone Annalise Carter DO Primary Care Provider [phone] Chuck Mei PA-C Unavailable Encounter Details Date Type Department Care Team (Late st Contact Info) Description 05/27/2020 Transcribed Document [facility] [place] [address] [place] [address] ProviderLars MD [address] [place] [address] Social History Tobacco Use Types [...] Conversion Note - Historical ProviderMD - 05/27/2020 4:00 AM CDT Height and Weight, Routine Entered On: 05/27/2020 6:52 EDT Performed On: 05/27/2020 4:00 EDT by Radhika Marquez Rn-Traveler Height and Weight, Routine Routine Weight Source : Bed scale Routine Weight Entry Format : [place] Routine Weight, Pounds : 220 lb Routine Weight Calculation : 100 kg Height Source : Stated Height Entry Format : [place] Height, Feet : 5 ft Height, Inches : 9 Inch Clinical Height : 175.26 cm Body Surface Area (BSA), Routine : 2.15 m2 Body Mass Index (BMI), Routine : 32.56 kg/m2 Radhika Marquez, Rn-Traveler - 05/27/2020 6:52 EDT documented in this encounter Plan of Treatment Not on file documented as of this encounter Visit Diagnoses Not on filedocumented in this encounter Additional Health Concerns Infection Onset Date Last Indicated Resolved Time MRSA (C) 06/11/2023 06/11/2023 documented as of this encounter Care Teams Telegraph Editor Relationship Specialty Start Date End Date Annalise Carter, DO [address] [facility] [address] [place] [address] PCP - General Family Medicine 06/06/23 Chuck Mei PA-C [address] [facility] [address] [place] [address] Cardiology 11/01/23 documented as of this encounter
--- OUTSIDE RECORDS SUMMARY | 2025-05-05 12:26 | XMS_ITS | Encounter Summary ---
Author Organization [employer] ([place], [place], [place], [place]) Address [address] [place] [address] Care Team Providers Care Card Hand Name Role Phone Annalise Carter DO Primary Care Provider [phone] Chuck Mei PA-C Unavailable Encounter Details Date Type Department Care Team (Late st Contact Info) Description 05/23/2020 Transcribed Document [facility] [place] Family Medicine [facility] [place] [address] ProviderLars MD [address] [place] [address] Social History Tobacco Use Types [...] Conversion Note - Lars ProviderMD - 05/23/2020 10:15 AM CDT Admission History, Adult Entered On: 05/23/2020 18:55 EDT Performed On: 05/23/2020 10:15 EDT by Aparna Rockwell Registered Nurse Advance Directive Patient has Advance Directive *Q : No, patient refuses Advance Directive information Aparna Rockwell Registered Nurse - 05/23/2020 18:37 EDT Anesthesia/Transfusion History Family History of Anesthesia Reaction : Prior transfusion without reaction Transfusion History : Prior anesthesia without reaction Family History of Anesthesia Reaction : None SimAparna taylor Registered Nurse - 05/23/2020 18:37 EDT Functional Assessment Living Situation : Home Patient Lives With : Parent(s) Mobility Assistance Prior to Admission : Independent PATEL Hx Falls Immediate/Within 3 Months : No Current Home Treatments : None Aparna Rockwell Registered Nurse - 05/23/2020 18:37 EDT General Info Mode of Arrival on Unit : Stretcher Legal Guardian : printed circuit boards stripper etcher Legal Guardian : No Support Person/Patient Barrel Inspector : Yes Support Person/Pt Rep Name : Camacho Support Person/Pt Rep Contact Information : [phone] Want Family/Rep/Phys Notified of Admit : No Emergency Contact #1 : Gigi Gregg Emergency Contact #1 Emergency Contact #1 Relationship : son Emergency Contact #2 : Mariana Marysol Emergency Contact #2 Emergency Contact #2 Relationship : mother Chief Complaint : COVID positive patient from home via [facility] due to SOA- Initial SPO2 88% RA, increased to 95 % via 2 LNC. Wheezing to upper lobes per[facility]. Information Obtained From : Patient Primary Language : Central African Preferred Communication Mode : Verbal Communication Barrier : None Chief Dog License Inspector Needed : No Aparna Rockwell Registered Nurse - 05/23/2020 18:37 EDT Fall Risk Scales ABCs Fall Injury Risk Identification : None PATEL Hx Falls Immediate/Within 3 Months : No Patel Secondary Diagnosis : Yes PATEL Use of Ambulatory Aid : None PATEL IV Therapy or IV Access : Yes Patel Gait/Transferring : Normal, bedrest, immobile Patel Mental Status : Oriented to own ability Patel Fall Risk Score : 35 PATEL Fall Scale Risk Level : 25-45 Medium Risk [place] Fall Interventions : Adequate lighting, Assistive devices within reach, Bed in low position, Call device within reach, Fall prevention handout/education per facility policy, Frequent orientation to call device, Frequent orientation to surroundings, Hourly comfort/safety rounds, Non-slip footwear, Personal items within reach, Reinforced to call for assistance before getting out of bed, Room free of clutter/spills, Upper side-rails up, Wheels locked, Wires/Cords secured Fall Moderate to High Risk Interventions : Fall contract/letter per facility policy, Patient room close to nurses station, Supervise toileting as indicated, Personal alarm on, Transport methods appropriate to patient, Toileting schedule Fall Risk Scale Calc Temp : 0 Aparna Rockwell Registered Nurse - 05/23/2020 18:37 EDT Health Histories Smoking Status : Former smoker, quit more than 30 days ago Smokeless Tobacco Status : Never Aparna Rockwell Registered Nurse - 05/23/2020 18:37 EDT Social History (As Of: 05/23/2020 18:55:33 EDT) Tobacco: Smoking Status Former smoker. Last Used: Quit 6 years ago. (Last Updated: 11/17/2016 12:34:45 EST by JAKE AHMADI, CICI) Alcohol: Alcohol Use History Yes. Date/Time of Last Drink: a little wine or beer 3 times a yr. Alcohol Use Frequency Rarely. (Last Updated: 11/17/2016 22:00:13 EST by CONSTANTIN BLACKBURN, CICI) Substance Abuse: Drug Use Hx: No. Use in Last 12 Months: No. (Last Updated: 11/17/2016 22:00:23 EST by CONSTANTIN BLACKBURN RN) Height and Weight, Clinical Dosing Height Source : Stated Height Entry Format : [place] Height, Feet : 5 ft(Converted to: 152 cm, 60 Inch) Height, Inches : 9 Inch(Converted to: 0 ft 9 Inch, 22.86 cm) Clinical Height : 175.26 cm Weight Source : Bed scale Weight Entry Format : [place] Clinical Dosing Weight : 101.82 kg Weight, Pounds : 224 lb Body Surface Area (BSA) : 2.17 m2 Body Mass Index : 33.1 kg/m2 (HI) [place] Body Weight : 70 kg Aparna Rockwell Registered Nurse - 05/23/2020 18:37 EDT Infectious Disease History Has the patient ever been tested for COVID-19? : Yes, Patient stated results Positive Date of COVID-19 test known? : Yes Date of COVID-19 Test : 05/15/2020 EDT Does patient have symptoms of COVID-19? : Yes COVID19 Screening : No Experiencing Infectious Disease Symptoms : Difficulty breathing, Cough Physical contact outside US in the last 30 days : No Infectious Disease History : Chicken pox/Shingles, Measles, Meningitis, Mumps, Pertussis (Whooping cough) Tuberculosis Symptoms : Fatigue SimpaAparna rainey Registered Nurse - 05/23/2020 18:37 EDT Influenza Vaccine Asmt, Adult Previous Vaccines from Immunization Schedule : No qualifying data available. Influenza Immunization, Current Season : Yes Influenza Immunization Date : 04/12/2020 EDT Aparna Rockwell Registered Nurse - 05/23/2020 18:37 EDT Pneumococcal Vaccine Previous Vaccines from Immunization Schedule : No qualifying data available. Pneumonia Immunization Received : Yes Pneumonia Immunization Comment : date unknown, patient states 2-3 years ago Aparna Rockwell Registered Nurse - 05/23/2020 18:37 EDT Order Details Order Detail : N/A Aparna Rockwell Registered Nurse - 05/23/2020 18:37 EDT Nutrition History Adaptive Feeding Equipment : Regular Oral Medication Administration : By mouth Eating Poorly Due to Decreased Appetite : No Unplanned Weight Loss in Past 3-6 Months : No Malnutrition Screening Tool Total(mal) : 0 Malnutrition Screening Tool Risk Level : Patient not at risk Aparna Rockwell Registered Nurse - 05/23/2020 18:37 EDT Lamb Suicide Severity Rating Scale (C-SSRS) CSSRS Past Month Wish to be : No CSSRS Past Month Suicidal Thoughts : No CSSRS Lifetime Suicide Behavior : No Suicide Severity Rating Score : 0 Suicide Severity Rating : No Additional Care Required at this time Aparna Rockwell Registered Nurse - 05/23/2020 18:37 EDT Psychosocial History Does Someone Depend on You for Care? : Yes Do You Have a History of the Following? : Anxiety, Depression Currently in Unsafe Situation : No Aparna Rockwell Registered Nurse - 05/23/2020 18:37 EDT Sleep Apnea Risk Assmt BiPAP/CPAP Ordered for Home Use : No Hx of Obstructive Sleep Apnea Diagnosis : Yes Age over 50 Years Old : Yes Gender Male : Yes Aparna Rockwell Registered Nurse - 05/23/2020 18:37 EDT Valuables and Belongings Valuables and Belongings : Clothing, Personal items, Medications Clothing : Common streetwear Clothing Disposition : Bedside Personal Items : Cell phone, Other: check book Personal Items Disposition : Bedside Medication Disposition : Bedside Medication Brought With Patient : Yes Aparna Rockwell Registered Nurse - 05/23/2020 18:37 EDT Electronically signed by Brittni Gerardo Conversion Electric Refrigerator Servicer Cerner at 12/27/2022 11:59 AM CDT documented in this encounter Plan of Treatment Not on file documented as of this encounter Visit Diagnoses Not on filedocumented in this encounter Additional Health Concerns Infection Onset Date Last Indicated Resolved Time MRSA (C) 06/11/2023 06/11/2023 documented as of this encounter Care Teams Card Hand Relationship Specialty Start Date End Date Annalise Carter, DO [address] [facility] [address] [place] [address] PCP - General Family Medicine 06/06/23 Chuck Mei PA-C [address], [facility] [address] [place] [address] Cardiology 11/01/23 documented as of this encounter
--- OUTSIDE RECORDS SUMMARY | 2025-05-05 12:26 | XMS_ITS | Encounter Summary ---
Author Organization [employer] ([place], [place], [place], [place]) Address [address] [place] [address] Care Team Providers Care Staff Developer Name Role Phone Annalise Carter DO Primary Care Provider [phone] Chuck Mei PA-C Unavailable Encounter Details Date Type Department Care Team (Late st Contact Info) Description 05/27/2020 Transcribed Document [facility] [place] [address] [place] [address] ProviderLars MD [address] [place] [address] Social History Tobacco Use Types [...] Conversion Note - Historical ProviderMD - 05/27/2020 1:03 PM CDT Patient: ROSARIO GREGG Age: 59 [...] diabetes mellitus, BPH, and hypertension presented to [facility] ED on 05/23/2024 worsening shortness of breath and cough for the last week. Tested for COVID-19 on this past Monday at [place], [place] with results back on Monday that [...] less chest pain. hoping to go home soone ROS: Afebrile. Hemodynamically stable. No rash, diarrhea, infusion site reactions. Allergies: Morphine Medications: Medications by Classification Immunology dexamethasone - 6 mg, Oral, Tab, Daily, order duration: 9 Day(s), Routine Anticoagulant enoxaparin (Lovenox) - 30 mg, SubCutaneous, Inj, [id number] Cardiovascular aspirin (Ecotrin) - 81 mg, Oral, [...] glargine (Lantus) - 30 Units, SubCutaneous, Inj, [id number] insulin lispro (insulin lispro sliding scale) - [...] Undefined Medications remdesivir - Inj, IV Piggyback, [id number] for 4 Day(s) ticagrelor - 90 mg, Oral, Tab, BID, Routine PE: Vitals Signs (last 24 hrs) Last Charted Minimum Maximum Temp 98.2 (MAY 16 08:43) 98.2 (MAY 16 08:43) 98.7 (MAY 15 16:00) Apical HR 80 (MAY 16 08:43) 67 (MAY 15 21:34) 80 (MAY 16 08:43) Mon HR 78 (MAY 16 12:00) 49 (MAY 16 00:10) 79 (MAY 15 15:00) Resp Rate 16 (MAY 27 11:02) L 7 (MAY 15 17:00) H 47 (MAY 15 22:30) SBP 113 (MAY 27 08:43) 104 (MAY 27 01:00) H 142 (MAY 15 18:00) DBP 72 (MAY 27 08:43) 64 (MAY 15 14:00) 82 (MAY 16 04:45) MAP 85 (MAY 27 08:43) 81 (MAY 27 01:00) 104 (MAY 15 18:00) SpO2 L 86 (MAY 27 12:00) L 86 (MAY 27 12:00) 97 (MAY 26 17:00) Exam: Constitutional: NAD, alert, WD/WN, appears older [...] L 12.4 (SEP 13) HCT L 39.4 (MAY 16) L 36.7 (SEP 15) L 36.1 (SEP 14) L 37.1 (MAY 13) Plt 260 (SEP 16) 246 (SEP [...] 15) H 176 (SEP 14) H 198 (MAY 13) Ca L 8.2 (SEP 16) L 7.8 (SEP 15) 8.4 (SEP 14) L 7.9 (MAY 13) Lactic 1.0 (MAY 13) 1.5 (MAY 12) PT 10.8 (MAY 12) 10.9 (MAY 12) INR 1.0 (MAY 12) 1.0 (MAY 12) PTT 32.4 (MAY 12) AST 21 (SEP 14) 23 (SEP 13) 22 (MAY 12) ALT 25 (SEP 14) 27 (SEP 13) 27 (MAY 12) ALK P 67 (MAY 14) 67 (SEP 13) 63 (MAY 12) T Bili 0.3 (MAY 14) 0.4 (MAY 13) 0.5 (MAY 12) PTN 7.1 (MAY 14) 7.1 (MAY 13) 6.4 (MAY 12) ALB L 2.7 (MAY 14) L 2.7 (SEP 13) L 2.6 (MAY 12) Troponin <0.015 (MAY 13) <0.015 (MAY 12) Creatinine Clearance (Current Encounter/Past 24 Hours) Creatinine Level 0.80 mg/dL 05/27/2020 07:10 Bun/Creatinine 27.5 HI 05/27/2020 07:28 Estimated Creatinine Clearance 96.97 mL/Min 05/27/2020 07:10 Micro: 05/23 blood cultures pending, so far negative 05/23 COVID-19 PCR positive sputum cx contaminated Rad: Radiology Results (Last 48 hours) [id number] -- 05/23/2020 09:33 CR Chest 1 Vw [...] and dictated by Dr. Eulalio Pena.Transcribed by LAWRENCE Vivas-CI have personally viewed, interpreted and dictated the examination. Raghuave read and agree with the above final transcribed report. Personally reviewed above CXR from today: stable bilateral infiltrates IMPRESSION: - Severe COVID-19 pneumonia with acute hypoxic respiratory failure. Less likely coinfection with negative procalcitonin. inflammatory markers trending down. much improved over the past 48 hrs - Acute hypoxic respiratory failure: improving - Type 2 diabetes mellitus - Coronary artery disease/stent/CABG - Hypertension RECOMMENDATIONS/PLANS: - Monitor blood cultures, so far negative - Follow CBC, CMP, LDH, Ferritin, D dimer, CRP - Dexamethasone 6 mg daily for 10 days until 06/02 - remdesivir daily for 5 days total, last dose today, 05/27 - s/p 1 unit convalescent plasma on 05/23 - Continue O2 support - Continue Lovenox Much improved over the past 48 hrs. Completing remdesivir today. Per CM note, referral have been made to [facility]. Hopefully home vs rehab in the next 2 days +/- O2 Electronically signed by Brittni Gerardo Conversion Men'S Custom Hair Piece Consultant Cerner at 12/27/2022 12:05 PM CDT documented in this encounter Plan of Treatment Not on file documented as of this encounter Visit Diagnoses Not on filedocumented in this encounter Additional Health Concerns Infection Onset Date Last Indicated Resolved Time MRSA (C) 06/11/2023 06/11/2023 documented as of this encounter Care Teams Staff Developer Relationship Specialty Start Date End Date Annalise Carter, 8 [facility] [place] [facility] [address] [place] [address] PCP - General Family Medicine 06/06/23 Chuck Mei PA-C [address], [place] [place] [address] Cardiology 11/01/23 documented as of this encounter
--- OUTSIDE RECORDS SUMMARY | 2025-05-05 12:26 | XMS_ITS | Encounter Summary ---
Author Organization [employer] ([place], [place], [place], [place]) Address [address] [place] [address] Care Team Providers Care Collection Specialist Name Role Phone Annalise Carter DO Primary Care Provider [phone] Chuck Mei PA-C Unavailable Encounter Details Date Type Department Care Team (Late st Contact Info) Description 07/09/2020 Transcribed Document [facility] [place] Family Medicine [address] [place] [address] ProviderLars MD [address] [place] [address] Social History Tobacco Use Types [...] Conversion Note - Lars Jeffries MD - 07/09/2020 12:07 PM CDT UM Authorization Entered On: 07/09/2020 12:10 EDT Performed On: 07/09/2020 12:07 EDT by ALEXANDER CALZADA RN Primary Insurance Authorization Authorization and Policy Numbers : Insurance 1 Health Plan: [employer] Policy Number: [id number] Authorization Number: Insurance Primary Name : [employer] Policy Number: [id number] Authorization Status-Primary : Opo status approv Authorized Service Begin Date-Primary : 07/07/2020 EDT Observation Authorization Nbr-Primary : [id number] Historical Authorization Comments-Primary : Comment 1: Pending ref no per Availity for Obs status (ALEXANDER CALZADA RN 07/08/2020 15:08) ALEXANDER CALZADA, RN - 07/09/2020 12:07 EDT documented in this encounter Plan of Treatment Not on file documented as of this encounter Visit Diagnoses Not on filedocumented in this encounter Additional Health Concerns Infection Onset Date Last Indicated Resolved Time MRSA (C) 06/11/2023 06/11/2023 documented as of this encounter Care Teams Collection Specialist Relationship Specialty Start Date End Date Annalise Carter, 8 [facility] [address] [place] [address] PCP - General Family Medicine 06/06/23 Chuck Mei PA-C [address], [facility] [address] [place] [address] Cardiology 11/01/23 documented as of this encounter
--- OUTSIDE RECORDS SUMMARY | 2025-05-05 12:26 | XMS_ITS | Encounter Summary ---
Author Organization [employer] ([place], [place], [place], [place]) Address [address] [place] [address] Care Team Providers Care Office Technology Instructor Name Role Phone Annalise Carter DO Primary Care Provider [phone] Chuck Mei PA-C Unavailable [phone] Encounter Details Date Type Department Care Team (Late st Contact Info) Description 05/23/2020 Transcribed Document [facility] [place] [address] ProviderLars MD [address] [place] [id number] Social History Tobacco Use Types Packs/Day Years [...] Conversion Note - Lars ProviderMD - 05/23/2020 10:22 AM CDT Consult Phone Call Documentation Entered On: 05/23/2020 10:23 EDT Performed On: 05/23/2020 10:22 EDT by Eric Dumont, termite exterminator Phone Call for Consults Consult Phone Call/Page Attempt : First call Consult Reason : Positive COVID Physician Requesting Consult : MICKI LAZAR MD-INT Physician Requested for Consult : JENNIFER WELLINGTON MD-INF Provider Service Notified Name : Infectious Disease Physician Covering for Consult : KIKI CORTÉS MD-INF Date and Time Call Returned : 05/23/2020 10:20 EDT Physician Returning Call : DARBY BAUM PA-INF Consult, Additional Information : Called Dr. Cortés for consult, LAWRENCE Schmid in ED to see patients. Eric Dumont, termite exterminator - 05/23/2020 10:22 EDT Electronically signed by Akin, [facility] Conversion Crossing Tender Cerner at 12/27/2022 12:08 PM CDT documented in this encounter Plan of Treatment Not on file documented as of this encounter Visit Diagnoses Not on filedocumented in this encounter Additional Health Concerns Infection Onset Date Last Indicated Resolved Time MRSA (C) 06/11/2023 06/11/2023 documented as of this encounter Care Teams Office Technology Instructor Relationship Specialty Start Date End Date Annalise Carter, DO [address] [facility] [address] [place] [address] PCP - General Family Medicine 06/06/23 Chuck Mei PA-C [address], [facility] [address] [place] [address] Cardiology 11/01/23 documented as of this encounter
--- OUTSIDE RECORDS SUMMARY | 2025-05-05 12:26 | XMS_ITS | Encounter Summary ---
Author Organization [employer] ([place], [place], [place], [place]) Address [address] [place] [address] Care Team Providers Care Budget Director Name Role Phone Emma Annalisegi Díaz DO Primary Care Provider [phone] Chuck Mei PA-C Unavailable [phone] Encounter Details Date Type Department Care Team (Late st Contact Info) Description 05/23/2020 Transcribed Document [facility] [place] Family Medicine [facility] [place] [address] ProviderLars MD [address] [place] [address] Social History Tobacco Use Types Packs/Day Years [...] Conversion Note - Lars ProviderMD - 05/23/2020 11:39 AM CDT Consult Phone Call Documentation Entered On: 05/23/2020 11:41 EDT Performed On: 05/23/2020 11:39 EDT by Martha Dumont, fashion marketer Phone Call for Consults Consult Phone Call/Page Attempt : First call Consult Reason : CHF Physician Requesting Consult : MICKI LAZAR MD-INT Physician Requested for Consult : MARTHA BECK MD-SANDHYA Provider Service Notified Name : Cardiology Physician Covering for Consult : LEONARDO, CHAVO ALEX, MD-CAR Date and Time Call Returned : 05/23/2020 11:35 EDT Physician Returning Call : LEONIE MCGEE APRN Consult, Additional Information : Consult call completed Martha Dumont, fashion marketer - 05/23/2020 11:39 EDT Electronically signed by [facility], [facility] Conversion Liquor Grinder Mill Operator Cerner at 12/27/2022 12:09 PM CDT documented in this encounter Plan of Treatment Not on file documented as of this encounter Visit Diagnoses Not on filedocumented in this encounter Additional Health Concerns Infection Onset Date Last Indicated Resolved Time MRSA (C) 06/11/2023 06/11/2023 documented as of this encounter Care Teams Budget Director Relationship Specialty Start Date End Date Annalise Carter, DO [address] [facility] [address] [place] [address] PCP - General Family Medicine 06/06/23 Chuck Mei PA-C [address] [facility] [address] [place] [address] Cardiology 11/01/23 documented as of this encounter
--- OUTSIDE RECORDS SUMMARY | 2025-05-05 12:26 | XMS_ITS | Encounter Summary ---
Author Organization [employer] ([place], [place], [place], [place]) Address [address] [place] [address] Care Team Providers Care Wireless Cellular Technician Name Role Phone Annalise Carter DO Primary Care Provider [phone] Chuck Mei PA-C Unavailable [phone] Encounter Details Date Type Department Care Team (Late st Contact Info) Description 05/23/2020 Transcribed Document [facility] [place] [facility] [place] [address] ProviderLars MD [address] [place], [place] [id number] Social History Tobacco Use Types Packs/Day Years [...] Conversion Note - Lars ProviderMD - 05/23/2020 6:06 PM CDT ED Discharge Entered On: 05/23/2020 18:07 EDT Performed On: 05/23/2020 18:06 EDT by LES SULLIVAN, nursing teacher Process Patient Disposition : Admit/Observe Personal Belongings With Patient : Yes Patient Education Completed : Yes Teaching Evaluation : Verbalizes understanding IV Discontinued : Not applicable Nursing Documentation Completed : Yes LES SULLIVAN, RN - 05/23/2020 18:06 EDT Admission, ED Nurse Report Accepted By : see ad hoc Nurse Report Acceptance Time : 05/23/2020 18:07 EDT `Nurse Report (Hand Off) : Called Accompanied By, Discharge : Other: RN for transport Fluids/Drips Continued on Admission : No Fluids/Drips Continued on Admission, Comment : iv sl Mode Of Departure : LES Golden, RN - 05/23/2020 18:06 EDT Electronically signed by [facility], [facility] Conversion Stereo Equipment Installer Cerner at 12/27/2022 12:02 PM CDT documented in this encounter Plan of Treatment Not on file documented as of this encounter Visit Diagnoses Not on filedocumented in this encounter Additional Health Concerns Infection Onset Date Last Indicated Resolved Time MRSA (C) 06/11/2023 06/11/2023 documented as of this encounter Care Teams Wireless Cellular Technician Relationship Specialty Start Date End Date Annalise Carter, 8 [facility] [address] [place] [address] PCP - General Family Medicine 06/06/23 Chuck Mei PA-C [address], [facility] [address] [place] [address] Cardiology 11/01/23 documented as of this encounter
--- OUTSIDE RECORDS SUMMARY | 2025-05-05 12:26 | XMS_ITS | Encounter Summary ---
Author Organization [employer] ([place], [place], [place], [place]) Address [address] [place] [address] Care Team Providers Care Dashboard Developer Name Role Phone Annalise Carter DO Primary Care Provider [phone] Chuck Mei PA-C Unavailable [phone] Encounter Details Date Type Department Care Team (Late st Contact Info) Description 05/23/2020 Transcribed Document [facility] [place] [address] [place] [address] ProviderLars MD [address] [place], [place] [id number] Social History Tobacco Use Types Packs/Day Years [...] Conversion Note - Lars ProviderMD - 05/23/2020 9:55 AM CDT Pain Assessment Entered On: 05/28/2020 4:48 EDT Performed On: 05/28/2020 3:43 EDT by Perlita Griffin Rn-Traveler Intervention Information: acetaminophen Performed by Perlita Griffin Rn-Traveler on 05/28/2020 02:43:00 EDT acetaminophen,650mg Oral,Pain (Mild 1-3) Pain Assessment Pain Assessment : Follow-up assessment Pain Scale Goal : 0 Pain Scale Used : Perlita Quintero Rn-Traveler - 05/28/2020 4:47 EDT Electronically signed by Brittni Gerardo Conversion Gas Appliance Servicer Helper Cerner at 12/30/2022 8:59 AM CDT documented in this encounter Plan of Treatment Not on file documented as of this encounter Visit Diagnoses Not on filedocumented in this encounter Additional Health Concerns Infection Onset Date Last Indicated Resolved Time MRSA (C) 06/11/2023 06/11/2023 documented as of this encounter Care Teams Dashboard Developer Relationship Specialty Start Date End Date Annalise Carter, [address] [facility] [address] [place] [address] PCP - General Family Medicine 06/06/23 Chuck Mei PA-C [address], [facility] [address] [place] [address] Cardiology 11/01/23 documented as of this encounter
--- OUTSIDE RECORDS SUMMARY | 2025-05-05 12:26 | XMS_ITS | Encounter Summary ---
Author Organization [employer] ([place], [place], [place], [place]) Address [address] [place] [address] Care Team Providers Care Transplanter Name Role Phone Annalise Carter DO Primary Care Provider [phone] Chuck Mei PA-C Unavailable [phone] Encounter Details Date Type Department Care Team (Late st Contact Info) Description 07/09/2020 Transcribed Document [facility] [place] [address] [place] [address] ProviderLars MD [address] [place] [address] Social History Tobacco Use Types [...] Cerner Conversion Note - Lars ProviderMD - 07/09/2020 3:34 PM CDT On Going Discharge Planning Entered On: 07/09/2020 15:36 EDT Performed On: 07/09/2020 15:34 EDT by AKILA MAE RN-Battery AssemblerSupervisor Edging Progress Note Discharge Arrangements : Patient Post-Acute [...] Sent to Post Acute Providers : No Is the Patient Meeting Medical Necessity : Yes Physician Agreeable to Move Forward with D/C Plan? : No Did you Attend Multidisciplinary Rounds? : Yes AKILA MAE RN-Battery Assembler - 07/09/2020 15:34 EDT Narrative Progress Note Narrative Progress Note : Up ambulating in room, on RA. Independent without assistive devices. Denies shortness of breath. States hopes to go home tomorrow. No d/c needs anticipated at this time. Will continue to assess during stay. 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
--- OUTSIDE RECORDS SUMMARY | 2025-05-05 12:26 | XMS_ITS | Encounter Summary ---
Author Organization [employer] ([place], [place], [place], [place]) Address [address] [place] [address] Care Team Providers Care Can Line Examiner Name Role Phone Annalise Carter DO Primary Care Provider [phone] Chuck Mei PA-C Unavailable [phone] Encounter Details Date Type Department Care Team (Late st Contact Info) Description 05/27/2020 Transcribed Document [facility] [place] [facility] [place] [address] ProviderLars MD [address] [place] [address] Social History Tobacco Use Types [...] Conversion Note - Historical ProviderMD - 05/27/2020 11:52 AM CDT Evaluation, Occupational Therapy Entered On: 05/28/2020 12:45 EDT Performed On: 05/28/2020 10:50 EDT by GEOVANY BURDEN OTR/Bre General Information, OT Therapy Diagnosis, OT : decreased I with ADLs due to weakness and fatigue Onset of Problem, OT : 05/23/2020 EDT General Information Comment, OT : PATIENT HERE FOR COVID, PNA, SEPSIS GEOVANY BURDEN, OTR/L - 05/28/2020 13:55 EDT Visit Type, OT : Initial evaluation Patient Orders : Order Date Order Ordering 05/26/2020 18:21 Consult to Occupational Therapy Ordered By: GERTRUDIS LAZAR MD-RAHUL 05/27/2020 11:52 Consult to Occupational Therapy Ordered By: TOYIN GUAMAN MD Active Diagnoses : 05/23/2020 12:00 2019-nCoV acute respiratory disease 05/23/2020 12:00 Hypokalemia 05/23/2020 12:00 Pneumonia, unspecified organism 05/23/2020 12:00 Shortness of breath Admission Date : 05/23/2020 09:33 Personal Devices : Personal Devices No Devices Recorded Assistive Devices : Assistive Devices No Devices Recorded Isolation Maintained : Airborne, Contact, Containment, Droplet GEOVANY BURDEN OTR/L - 05/28/2020 12:45 EDT General Status Patient Received Status : Supine in bed Treatment Start Time : 05/28/2020 10:37 EDT Patient Left Status : Supine in bed, All needs met and within reach RN/PCT Informed Comment : Camille BOLANOS eval this AM Treatment End Time : 05/28/2020 10:50 EDT Treatment Time : 13 Minute(s) GEOVANY BURDEN OTR/Bre - 05/28/2020 13:55 EDT History and Environment, OT Living Situation, Therapy : Home Patient Lives With : Parent(s) Persons Assisting Patient at Home : Alone Persons Providing Information : Patient Home Equipment, Therapy : None Stairs : Yes Stair Location(s) : Outside Outside Stairs, Number of Steps : 8 GEOVANY BURDEN OTR/Bre - 05/28/2020 13:55 EDT Prior LOF Bathing, OT : Independent Prior LOF Bed Mobility : Independent Prior LOF Upper Body Dressing, OT : Independent Prior LOF Lower Body Dressing, OT : Independent Prior LOF Toileting : Independent Prior LOF Transfer : Independent Prior LOF Grooming, OT : Independent Prior LOF for IADLs, OT : Independent GEOVANY BURDEN OTR/Bre 05/28/2020 13:55 EDT Prior LOF Assist with ADL Comment : 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 Very I with his own ADLs mobilty GEOVANY BURDEN OTR/Bre - 05/28/2020 13:55 EDT Upper Extremity Upper Extremity Dominance : Right Right UE Active ROM : WFL Right UE Strength : WFL Left UE Active ROM : WFL Left UE Strength : WFL GEOVANY BURDEN, OTR/05/28/2020 13:55 EDT Self Care/Home Management, OT Self Feeding Assist Level, OT : Independent, complete Grooming Assist Level, OT : Independent, complete Bathing Assist Level, OT : Supervision or set-up Upper Body Dressing Assist Level, OT : Independent, complete Lower Body Dressing Assist Level, OT : Supervision or set-up Toileting Assist Level : Independent, complete Toileting Assist Device Comment : ambulating to and from bathroom in room with no difficulty Toilet Transfer Assist Level : Supervision or set-up Toilet Transfer Device : Belt, gait Toilet Transfer Comment : ambulated around room with good balance GEOVANY BURDEN, OTR/L 05/28/2020 13:55 EDT Functional Mobility Mobility Grid Bed Roll Left : Rehab Complete independence Bed Roll Right : Rehab Complete independence Bed Scooting : Rehab Complete independence Supine to Sit : Rehab Complete independence Sit to Stand : Rehab Modified independence Stand to Sit : Rehab Modified independence Sit to Supine : Rehab Complete independence GEOVANY BURDEN, OTR/L 05/28/2020 13:55 EDT Neurological/Sensory Overall Sensory Response : GEOVANY Granados, ROBERTR/L 05/28/2020 13:55 EDT Cognition Assessment, OT Orientation : Oriented x 4 Cognition Assessment, OT : GEOVANY Granados, ROBERTR05/28/2020 13:55 EDT Visual/Perceptual/Vestibular, OT Vision Assessment, OT : GEOVANY Granados, OTR/L 05/28/2020 13:55 EDT Indication Assessment, OT Occupational Therapy Indicated : Yes Problem List, OT : Impaired, endurance tolerance Potential Barriers, OT : None evident Rehabilitation Potential, OT : GEOVANY Sanders, ROBERTR/L 05/28/2020 13:55 EDT Plan of Care, OT OT Tx Plan/Goals Established w Patient : Yes OT Frequency Rehab : Five days per week OT Duration Rehab : Fourteen days OT Treatments Planned : Activities of daily living, Safety education, Therapeutic activities GEOVANY BURDEN, ROBERTR/L 05/28/2020 13:55 EDT Assisted Goals, OT Other LTG Grid Goal #1 Goal #2 Goal #3 Goal #4 Goal : Patient will be set up [facility] for full body/core strength and endurance task Patient will demo safety in room with all ADLs/mobility Patient will demo understandind of endurance/ ECWS tasks for home ADLs Patient will stand 10+ minutes for dynamic fxal task and no LOB or rest break needed Date to Meet : 06/11/2020 EDT 06/11/2020 EDT 06/11/2020 EDT 06/11/2020 EDT Goal Status : Initial goal Initial goal Initial goal Initial goal GEOVANY BURDEN OTR/Bre - 05/28/2020 13:55 EDT GEOVANY BURDEN OTR/Bre 05/28/2020 13:55 EDT GEOVANY BURDEN OTR/Bre - 05/28/2020 13:55 EDT GEOVANY BURDEN OTR/Bre 05/28/2020 13:55 EDT Treatment Note Subjective Comment : Agreeable Patient's Response to Treatment : Resting in supine, no complaints. Additional Objective Information : Came to EOB for MMT and LB dressing at EOB. Stood and marched in place. Fatigues, but good function and able to stand for 4 minutes before needing rest break. Back to supine with needs in reach [facility] Assessment : See goals Patient desires to go home and seems that he could complete ADLs/mobility at home without assistance. If endurance issues persist may benefit from outpatient therapy Plan for Treatment : See goals GEOVANY BURDEN OTR/Bre - 05/28/2020 13:55 EDT Pain Assessment Pain Scaled Used : 0-10 Pain scale Pain Score During-Intervention : 0 GEOVANY BURDEN OTR/Bre Shaw 05/28/2020 13:55 EDT Image 1 - Images currently included in the form version of this document have not been included in the text rendition version of the form. Anticipated Discharge Needs, OT/PT Anticipated Discharge to : Home, independently Recommend Continued Therapy at Discharge : No GEOVANY BURDEN OTR/Bre [place] 05/28/2020 13:55 EDT [place] [facility] Charges OT Eval Moderate Complexity : 1 GEOVANY BURDEN OTR/Bre Shaw 05/28/2020 13:55 EDT Electronically signed by Akin, [facility] Conversion Attorney At Law Cerner at 12/27/2022 11:56 AM CDT documented in this encounter Plan of Treatment Not on file documented as of this encounter Visit Diagnoses Not on filedocumented in this encounter Additional Health Concerns Infection Onset Date Last Indicated Resolved Time MRSA (C) 06/11/2023 06/11/2023 documented as of this encounter Care Teams Can Line Examiner Relationship Specialty Start Date End Date Annalise Carter DO [address] [facility] [address] [place] [address] PCP - General Family Medicine 06/06/23 Chuck Mei PA-C [address], [facility] [address] [place] [address] Cardiology 11/01/23 documented as of this encounter
--- OUTSIDE RECORDS SUMMARY | 2025-05-05 12:26 | XMS_ITS | Encounter Summary ---
Author Organization [employer] ([place], [place], [place], [place]) Address [address] [place] [address] Care Team Providers Care Account Manager Forest Service Name Role Phone Annalise Carter DO Primary Care Provider [phone] Chuck Mei PA-C Unavailable [phone] Encounter Details Date Type Department Care Team (Late st Contact Info) Description 05/23/2020 Transcribed Document [facility] [place] [address] [place] [address] ProviderLars MD [address] [place] [address] Social History Tobacco Use Types Packs/Day Years [...] Note - Lars Jeffries MD - 05/23/2020 1:03 PM CDT Consult Phone Call Documentation Entered On: 05/23/2020 13:04 EDT Performed On: 05/23/2020 13:03 EDT by Eric Dumont ED Tech Phone Call for Consults Consult Phone Call/Page Attempt : Second call Consult Reason : Acute hypoxic failure Physician Requesting Consult : MICKI LAZAR MD-INT Physician Requested for Consult : LAINA BRADLEY MD Provider Team Notified Name : Pulmonary medicine Physician Covering for Consult : KAYLA BONILLA APRN Date and Time Call Returned : 05/23/2020 13:00 EDT Consult, Additional Information : Consult call complete Eric Dumont, voice teacher - 05/23/2020 13:03 EDT documented in this encounter Plan of Treatment Not on file documented as of this encounter Visit Diagnoses Not on filedocumented in this encounter Additional Health Concerns Infection Onset Date Last Indicated Resolved Time MRSA (C) 06/11/2023 06/11/2023 documented as of this encounter Care Teams Account Manager Forest Service Relationship Specialty Start Date End Date Annalise Carter, DO [address] [place] [address] PCP - General Family Medicine 06/06/23 Chuck Mei PA-C [address] [facility] [address] [place] [address] Cardiology 11/01/23 documented as of this encounter
--- OUTSIDE RECORDS SUMMARY | 2025-05-05 12:26 | XMS_ITS | Encounter Summary ---
Author Organization [employer] ([place], [place], [place], [place]) Address [address] [place] [address] Care Team Providers Care Staff Pharmacist Hospital Name Role Phone Annalise Carter DO Primary Care Provider [phone] Chuck Mei PA-C Unavailable [phone] Encounter Details Date Type Department Care Team (Late st Contact Info) Description 05/27/2020 Transcribed Document [facility] [place] Family Medicine [facility] [place] [address] ProviderLars MD [address] [place] [address] Social History Tobacco Use Types [...] Conversion Note - Lars ProviderMD - 05/27/2020 4:26 PM CDT On Going Discharge Planning Entered On: 05/27/2020 16:27 EDT Performed On: 05/27/2020 16:26 EDT by EUGENIA GODFREY, RN-Sleeve SetterCompletions Manager Progress Note Discharge Arrangements : Patient Post-Acute [...] Attend Multidisciplinary Rounds? : No EUGENIA GODFREY, RN-Sleeve Setter - 05/27/2020 16:26 EDT Narrative Progress Note Narrative Progress Note : HD 4. Pt remains in isolation for COVID 19. WBC 11.3, O2 at 3 liters. Contniues on Remdesivir IV and Dexamethasone PO. OT/PT evals pending. Discharge plan is short term rehab vs home with home health. Historical Progress Note : MDR 9-15. covid: 19 positive. orders for PT/OT. transfer to . referral to [facility] [place] for rehab. discuss with case management staff. MERLYN HERNANDEZ, RN-Sleeve Setter - 05/27/20 07:33:43 EUGENIA GODFREY, RN-Sleeve Setter - 05/27/2020 16:26 EDT Electronically signed by Jaren Gerardo Conversion Infrastructure Software Engineer Mari at 12/27/2022 11:54 AM CDT documented in this encounter Plan of Treatment Not on file documented as of this encounter Visit Diagnoses Not on filedocumented in this encounter Additional Health Concerns Infection Onset Date Last Indicated Resolved Time MRSA (C) 06/11/2023 06/11/2023 documented as of this encounter Care Teams Staff Pharmacist Hospital Relationship Specialty Start Date End Date Annalise Carter, DO [address] [place] [address] PCP - General Family Medicine 06/06/23 Chuck Mei PA-C [address], [place] [address] [place] [address] Cardiology 11/01/23 documented as of this encounter
--- OUTSIDE RECORDS SUMMARY | 2025-05-05 12:26 | XMS_ITS | Encounter Summary ---
Author Organization [employer] ([place], [place], [place], [place]) Address [address] [place] [address] Care Team Providers Care Infectious Diseases Physician Name Role Phone Annalise Carter DO Primary Care Provider [phone] Chuck Mei PA-C Unavailable [phone] Encounter Details Date Type Department Care Team (Late st Contact Info) Description 07/09/2020 Transcribed Document [facility] [place] [address] [place] [address] ProviderLars MD [address] [place] [address] Social History Tobacco Use Types [...] Conversion Note - Lars ProviderMD - 07/09/2020 10:10 AM CDT Patient: ROSARIO GREGG Age: 59 years Sex: Male : 1960 Associated Diagnoses: None Author: KIKI CORTÉS MD-INF ID Progress Note Ref MD: MD Manuelito Evaluating MD: Kiki Cortés MD Admit Date 07/07/2020 18:23 Date of consultation: 07/08/20 Reason for consultation: hemoptysis CC: hemoptysis HPI: 59 yo male with a hx of coronary artery disease s/p stent and CABG, type 2 diabetes mellitus, BPH, and hypertension presented to [facility] ED on 05/23/2024 worsening shortness of [...] for possible bronchitis. WBC and procal normal. 07/09/20: Slow improvement. Still has productive cough but feels like breathing is better. He sometimes still feels chest pressure. Now wheezing improved on inhalers. Tolerating oral Levaquin. Afebrile. Room air ROS: Afebrile. Hemodynamically stable. No rash, diarrhea, infusion site reactions. AllergiesNo qualifying data available Medications by Classification Antimicrobials levoFLOXacin - 500 mg, Oral, Tab, Daily, order duration: 3 Day(s), Routine Immunology predniSONE - 40 mg, Oral, Tab, Daily, order duration: 5 Day(s), NOW Cardiovascular metoprolol (metoprolol tartrate) - 50 mg, Oral, Tab, BID, Routine cloNIDine - 0.1 mg, Oral, Tab, Q4H, PRN for Hypertension, Routine tamsulosin - 0.4 mg, Oral, CR Cap, At Bedtime, Routine furosemide (Lasix) - 40 mg, IV Push, Inj, Daily, Routine Respiratory albuterol-ipratropium (Combivent Respimat CFC free 100 mcg-2 - 1 Puff, Inhalation, Inh, RT_QID, Routine albuterol-ipratropium (DuoNeb 0.5 mg-2.5 mg/3 mL inhalation - 3 mL, Nebulized Inhalation, Inh, Q6H, PRN for Shortness of Breath, Routine formoterol-mometasone (formoterol-mometasone 5 mcg-200 mcg/i - 2 Puff, Inhalation, Inh, RT_BID, Routine dextromethorphan-guaifenesin (dextromethorphan-guaiFENesin 3 - 1 Tab, Oral, CR Tab, BID promethazine (Phenergan) - 6.25 mg, IntraVENous, Inj, Q6H, PRN for Nausea, Routine GI ondansetron (Zofran) - 4 mg, IV Push, Inj, Q4H, PRN for Nausea, Routine pantoprazole (Protonix) - 40 mg, Oral, EC Tab, BID, Routine Endocrine insulin glargine (Lantus) - 30 Units, SubCutaneous, Inj, BID, Routine insulin lispro (insulin lispro 76 kg - 100 kg) - 76 kg - 100 kg scale, SubCutaneous, Inj, AC and at Bedtime, Routine Pain Meds acetaminophen (Tylenol) - 650 mg, Oral, Tab, Q4H, PRN for Other (See Comment), Routine Sedatives LORazepam (Ativan) - 0.5 mg, IV Push, Inj, Q4H, PRN for Agitation, Routine Vitamins cyanocobalamin - 1,000 mcg, IntraMuscular, Inj, Daily, order duration: 3 Time(s), Routine folic acid - 1 mg, Oral, Tab, Daily, order duration: 3 Time(s), Routine multivitamin - 1 Tab, Oral, Tab, Daily, Routine potassium chloride (potassium chloride extended release) - 20 mEq, Oral, CR Tab, BID, Routine Physical Examination:Vitals Signs (last 24 hrs) Last [...] 06:41) 113 (JUL 09 06:41) H 147 (JUL 08 17:23) DBP 61 (JUL 09 06:41) 61 (JUL 09 06:41) H 95 (JUL 08 17:23) MAP 76 (JUL 09 06:41) 76 (JUL 09 06:41) 113 (JUL 08 17:23) SpO2 98 (JUL 09 08:44) L 90 (JUL 08 11:00) 98 (JUL 09 06:41) General: Awake, comfortable in bed at rest. Eye: EOMI, normal conjunctiva HENT: moist oral mucosa, no oral lesions, fair dentition Neck: Supple, non-tender Lungs: no wheezes. better air movement. Dry cough. No rales. on room air. Heart: Normal rate, regular rhythm, no murmur appreciated Abdomen: Soft, non-tender, non-distended, normal bowel sounds Musculoskeletal: No peripheral edema Skin: Skin is warm, dry, no rashes or lesions Neurologic: Alert, and oriented X3, no gross focal motor deficits Psychiatric: Cooperative, appropriate mood and affect Labs:Labs (Last four charted values) WBC H 11.4 [...] Encounter/Past 24 Hours) Creatinine Level 0.90 mg/dL 07/09/2020 07:37 Bun/Creatinine 14.4 07/09/2020 07:37 Estimated Creatinine Clearance 83.39 mL/Min 07/09/2020 07:37 Microbiology: blood cultures pending COVID PCR neg Radiology: Radiology Results (Last 48 hours) [id number] -- 07/07/2020 18:23 CTA Chest PE Protocol [...] bilateral ground glass opacity IMPRESSION: - Hemoptysis: on admission. on Brillenta. now improved - Cough, acute bronchitis: improved. - Bilateral pulmonary edema: seen on CT - Recent COVID-19: Completed treatment last admission and has since been cleared from isolation since discharge. Repeat Covid PCR negative this admission - Mild leukocytosis: likely reactive to steroids - Type 2 diabetes mellitus - Coronary artery disease/stent/CABG - Hypertension Agree with pulmonology's assessment. Imaging consistent with edema rather than pneumonia. Not septic but did report low-grade fever at home prior to admission. Cultures negative to date Likely acute episode of mild bronchitis. Most likely viral but could be atypical bacterial. COVID-19 negative. Respiratory panel PCR has not been sent yet RECOMMENDATIONS/PLANS: - Follow-up pending blood cultures - Respiratory viral panel not sent yet. discussed with RN - Follow CBC, BMP - PO Levaquin 500 mg daily for a few more days. Although if respiratory viral panel is positive for a viral infection will plan to stop it Steroids, diuresis and other supportive care per primary team. Clinically improved. Hopefully home in the next 1 to 2 days. I will follow documented in this encounter Plan of Treatment Not on file documented as of this encounter Visit Diagnoses Not on filedocumented in this encounter Additional Health Concerns Infection Onset Date Last Indicated Resolved Time MRSA (C) 06/11/2023 06/11/2023 documented as of this encounter Care Teams Infectious Diseases Physician Relationship Specialty Start Date End Date Annalise Carter, DO [address] [facility] [address] [place] [address] PCP - General Family Medicine 06/06/23 Chuck Mei PA-C [address], [place] [address] [place] [address] Cardiology 11/01/23 documented as of this encounter
--- OUTSIDE RECORDS SUMMARY | 2025-05-05 12:26 | XMS_ITS | Encounter Summary ---
Author Organization [employer] ([place], [place], [place], [place]) Address [address] [place] [address] Care Team Providers Care Seat Nailer Name Role Phone Annalise Carter DO Primary Care Provider [phone] Chuck Mei PA-C Unavailable [phone] Encounter Details Date Type Department Care Team (Late st Contact Info) Description 05/27/2020 Transcribed Document [facility] [place] Family Medicine [address] [place] [address] ProviderLars MD [address] [place] [address] Social History Tobacco Use Types [...] Conversion Note - Lars ProviderMD - 05/27/2020 2:00 AM CDT Network Specialist Details Entered On: 05/27/2020 4:48 EDT Performed On: 05/27/2020 2:00 EDT by Radhika Marquez Rn-Traveler Order Details Transport Mode Order Detail : Stretcher/Gurney Isolation Precautions Order Detail : Contact precautions, Droplet precautions Order Detail : N/A Lift/Transfer : Moderate assist Central Line Order Detail : No Room Service : Appropriate Arterial Line : No Radhika Marquez Rn-Traveler - 05/27/2020 4:48 EDT documented in this encounter Plan of Treatment Not on file documented as of this encounter Visit Diagnoses Not on filedocumented in this encounter Additional Health Concerns Infection Onset Date Last Indicated Resolved Time MRSA (C) 06/11/2023 06/11/2023 documented as of this encounter Care Teams Seat Nailer Relationship Specialty Start Date End Date Annalise Carter, [address] [facility] [address] [place] [address] PCP - General Family Medicine 06/06/23 Chuck Mei PA-C [address], [facility] [address] [place] [address] Cardiology 11/01/23 documented as of this encounter
--- OUTSIDE RECORDS SUMMARY | 2025-05-05 12:26 | XMS_ITS | Encounter Summary ---
Author Organization [employer] ([place], [place], [place], [place]) Address [address] [place] [address] Care Team Providers Care Outpatient Pharmacy Manager Name Role Phone Annalise Carter DO Primary Care Provider [phone] Chuck Mei PA-C Unavailable [phone] Encounter Details Date Type Department Care Team (Late st Contact Info) Description 05/27/2020 Transcribed Document [facility] – [place] [place] Family Medicine [address] [place] [address] ProviderLars MD [address] [place] [address] Social History Tobacco Use Types [...] Conversion Note - Lars ProviderMD - 05/27/2020 11:19 PM CDT Patient: ROSARIO GREGG Age: 59 Years Sex: Male : 1960 Subjective Date of Service: 05/27/2020 Good spirits today. Wants to go home. Breathing comfortably. Vital Signs T: 36.7 ??C TMIN: 36.7 ??C TMAX: 36.8 ??C HR: 70 RR: 16 BP: 114/77 SpO2: 91% HT: 175.26 cm WT: 100 kg BMI: 32.56 Oxygen Settings (Last) Oxygen Therapy Mode: Nasal cannula (05/27/20 20:53:00) Oxygen Flow Rate: 2 Liter/Min (05/27/20 20:53:00) Intake & Output Totals Last 24 Hours (7a-7a) Input Total: 1357 mL Output Total: 2230 mL Balance: -873 mL Physical Exam General: no acute distress [...] where tested. Skin: No rashes or lesions Full PPE for exam Assessment/Plan Acute hypoxic respiratory failure secondary to COVID pneumonia and pulmonary edema IV Antibiotics completed Steroids completed remdesivir Convalescent plasma Clinically improving Still requiring O2 supplementation. COVID Pneumonia: Completed abx Acute Pulmonary edema Improved Increase activity with PT today. Home when oxygen requirements improve. VTE Prophylaxis - Medical Enoxaparin 30 mg, SubCutaneous, Inj, [id number], Start 05/27/20 9:00:00 EDT (GIANLUCA CALVO) Ticagrelor 90 mg, Oral, Tab, BID, Routine, Start 05/24/20 9:00:00 EDT (EVERARDOLEONIE) Sequential Compression Device Start: 05/23/20 9:55:00 EDT, [...] PRN Lantus, 30 Units= 0.3 mL, SubCutaneous, [id number] Lasix, 20 mg= 2 mL, IV Push, Daily lisinopril, 5 mg= 1 Tab, Oral, Daily Lopressor, 50 mg= 1 Tab, Oral, BID Lovenox, 30 mg= 0.3 mL, SubCutaneous, [id number] magnesium sulfate, 2 Gram= 50 mL, IV [...] Test Name Test Result Date/Time pH Art 7.46 (High) 05/27/2020 07:18 EDT pCO2 Art 31.3 mmHg (Low) 05/27/2020 07:18 EDT pO2 Art 67.6 mmHg (Low) 05/27/2020 07:18 EDT HCO3 Art 22.3 mmol/L 05/27/2020 07:18 EDT BE Art -0.7 mmol/L 05/27/2020 07:18 EDT sO2 Art 94.5 % (Low) 05/27/2020 07:18 EDT tHb Art 13.6 Gram/dL 05/27/2020 07:18 EDT FHHb 5.4 % 05/27/2020 07:18 EDT ctO2 17.9 mmol/L 05/27/2020 07:18 EDT Delivery Device Type Art Cannula 05/27/2020 07:18 EDT Temperature, F Art 98.6 Deg F 05/27/2020 07:18 EDT Art Blood Gas (ABG) Site Right Radial 05/27/2020 07:18 EDT Acceptable Lincoln's Test Art Acceptable 05/27/2020 07:18 EDT Ventilator Mode Art N/A 05/27/2020 07:18 EDT Oxygen Flow Rate Art 4.0 Liter 05/27/2020 07:18 EDT ABG Num of Draw Attempts 1 05/27/2020 07:18 EDT Sodium Level 139 mmol/L 05/27/2020 06:28 EDT Potassium Level 4.5 mmol/L 05/27/2020 06:28 EDT Chloride Level 110 mmol/L 05/27/2020 06:28 EDT Carbon Dioxide Level 23 mmol/L 05/27/2020 06:28 EDT Anion Gap 10 05/27/2020 06:28 EDT Glucose Level 146 mg/dL (High) 05/27/2020 06:28 EDT Blood Urea Nitrogen 22 mg/dL 05/27/2020 06:28 EDT Creatinine Level 0.80 mg/dL 05/27/2020 06:28 EDT eGFR >60 mL/min/1.73m2 05/27/2020 06:28 EDT eGFR NonAfrican >60 mL/min/1.73m2 05/27/2020 06:28 EDT Bun/Creatinine 27.5 (High) 05/27/2020 06:28 EDT Calcium Level 8.2 mg/dL (Low) 05/27/2020 06:28 EDT Magnesium Level 2.6 mg/dL (High) 05/27/2020 06:28 EDT Phosphorus 2.5 mg/dL 05/27/2020 06:28 EDT Device Comment 1 Protocols Followed 05/27/2020 21:12 EDT Device Comment 1 Protocols Followed 05/27/2020 17:19 EDT Device Comment 1 Protocols Followed 05/27/2020 06:24 EDT Device Comment 2 Received Meds 05/27/2020 21:12 EDT Glucose POC2 313 mg/dL (High) 05/27/2020 21:12 EDT Glucose POC2 244 mg/dL (High) 05/27/2020 17:19 EDT Glucose POC2 285 mg/dL (High) 05/27/2020 11:21 EDT Glucose POC2 140 mg/dL (High) 05/27/2020 06:24 EDT Calcium Ionized 1.15 mmol/L 05/27/2020 06:28 EDT WBC 11.3 K/uL (High) 05/27/2020 06:28 EDT RBC 4.39 Million/uL 05/27/2020 06:28 EDT Hgb 13.2 g/dL (Low) 05/27/2020 06:28 EDT Hct 39.4 % (Low) 05/27/2020 06:28 EDT MCV 89.7 fL 05/27/2020 06:28 EDT MCH 30.1 pg 05/27/2020 06:28 EDT MCHC 33.5 Gram/dL 05/27/2020 06:28 EDT Platelet Count 260 K/uL 05/27/2020 06:28 EDT MPV 10.2 fL 05/27/2020 06:28 EDT RDW 12.8 % 05/27/2020 06:28 EDT Neut % 77.7 % (High) 05/27/2020 06:28 EDT Neut # 8.75 K/uL (High) 05/27/2020 06:28 EDT Lymph % 14.5 % (Low) 05/27/2020 06:28 EDT Lymph # 1.63 x10(3)/uL 05/27/2020 06:28 EDT Medina % 6.3 % 05/27/2020 06:28 EDT Medina # 0.71 K/uL 05/27/2020 06:28 EDT Eos % 0.0 % 05/27/2020 06:28 EDT Eos # 0.00 x10(3)/uL 05/27/2020 06:28 EDT Baso % 0.3 % 05/27/2020 06:28 EDT Baso # 0.03 x10(3)/uL 05/27/2020 06:28 EDT Slide Review No 05/27/2020 06:28 EDT IG# 0.14 x10(3)/uL (High) 05/27/2020 06:28 EDT IG% 1.20 % (High) 05/27/2020 06:28 EDT [facility] Test Code [id number] 05/27/2020 10:42 EDT [facility] Test Name urine legion 05/27/2020 10:42 EDT documented in this encounter Plan of Treatment Not on file documented as of this encounter Visit Diagnoses Not on filedocumented in this encounter Additional Health Concerns Infection Onset Date Last Indicated Resolved Time MRSA (C) 06/11/2023 06/11/2023 documented as of this encounter Care Teams Outpatient Pharmacy Manager Relationship Specialty Start Date End Date Annalise Carter, [address] [facility] [address] [place] [address] PCP - General Family Medicine 06/06/23 Chuck Mei PA-C [address], [facility] [address] [place] [address] Cardiology 11/01/23 documented as of this encounter
--- OUTSIDE RECORDS SUMMARY | 2025-05-05 12:26 | XMS_ITS | Encounter Summary ---
Author Organization [employer] ([place], [place], [place], [place]) Address [address] [place] [address] Care Team Providers Care Cut Off Machine Helper Name Role Phone Annalise Carter DO Primary Care Provider Chuck Mei PA-C Unavailable [phone] Encounter Details Date Type Department Care Team (Late st Contact Info) Description 07/09/2020 Transcribed Document [facility] [place] [address] [place] [address] ProviderLars MD [address] [place] [address] Social History Tobacco Use Types [...] Cerner Conversion Note - Historical ProviderMD - 07/09/2020 4:48 PM CDT Patient: ROSARIO GREGG Age: 59 years Sex: Male : 1960 Associated Diagnoses: None Author: MICKI LAZAR MD-INT DATE OF SERVICE [ DOS ]: 07/09/2020 Basic Information SUBJECTIVE: Patient is seen and evaluated breathing better Dr. Wise in room Feels better no hemoptysis today started on [...] 0.5 mg, IV Push, Q4H, PRN: Agitation DuoNeb 0.5 mg-2.5 mg/3 mL inhalation solution: 3 mL, Nebulized Inhalation, RT_Q3H, PRN: Shortness of Breath DuoNeb 0.5 mg-2.5 mg/3 mL inhalation solution: 3 mL, Nebulized Inhalation, RT_Q6H Lantus: 30 Units, SubCutaneous, BID Lasix: 40 mg, IV Push, Daily Phenergan: 6.25 mg, IntraVENous, Q6H, PRN: Nausea Protonix: 40 mg, Oral, BID Tylenol: 650 mg, Oral, Q4H, PRN: Other (See Comment) Zofran: 4 mg, IV Push, Q4H, PRN: Nausea acetylcysteine 20% inhalation solution: 3 mL, Nebulized Inhalation, RT_Q8H budesonide: 0.5 mg, Nebulized Inhalation, RT_BID cloNIDine: 0.1 mg, Oral, Q4H, PRN: Hypertension cyanocobalamin: 1,000 mcg, IntraMuscular, Daily dextromethorphan-guaiFENesin 30 mg-600 mg oral tablet, extended release: 1 Tab, Oral, BID folic acid: 1 mg, Oral, Daily insulin lispro 76 kg - 100 k kg - 100 kg scale, SubCutaneous, AC and at Bedtime levoFLOXacin: 500 mg, Oral, Daily metoprolol tartrate: 50 mg, Oral, BID multivitamin: 1 Tab, Oral, Daily potassium chloride extended release: 20 mEq, Oral, BID predniSONE: 40 mg, Oral, Daily tamsulosin: 0.4 [...] 90 Day(s), 90 Cap, 0 Refill(s), Medications (22) Active Scheduled: (16) acetylcysteine 20% [...] At risk for sleep apnea / IMO [id number] / Confirmed CAD - Coronary artery disease / SNOMED CT 1920162286 / Confirmed Diabetes mellitus / SNOMED CT 579354611 / Confirmed History of obstructive sleep apnea / IMO [id number] / Confirmed HLD - Hyperlipidemia / SNOMED CT 439691505 / Confirmed HTN (hypertension) / SNOMED CT [id number] / Confirmed, Active Problems (22) Arthritis At [...] hrs) Last Charted Minimum Maximum Temp 98.1 (JUL 09 16:58) 97.9 (JUL 09 11:30) 98 (JUL 08 22:27) Apical HR 72 (JUL 09 20:31) 72 (JUL 09 20:31) 88 (JUL 09 08:14) Mon HR 89 (JUL 09 20:31) 85 (JUN 29 20:25) 90 (JUL 08 22:27) Resp Rate 18 (JUL 09 20:31) 16 (JUL 09 11:30) 20 (JUL 08 22:27) SBP 129 (JUL 09 16:58) 113 (JUN 29 06:41) 131 (OCT 28 22:27) DBP 74 (JUL 09 16:58) L 57 (JUL 09 11:30) 85 (JUL 08 22:27) MAP 93 (OCT 16:58) 76 (OCT 29 06:41) 97 (OCT 22:27) SpO2 100 (JUL 09 20:31) 96 (OCT 22:27) 100 (JUN 29 20:31) General: Alert and oriented, No acute distress. [...] tenderness, No swelling, No deformity. Integumentary: Warm, [place], Moist, No rash. Neurologic: Alert, Oriented, Normal [...] <0.015 (JUL 08) <0.015 (JUL 07) , JUL 09 07:07 136 107 13 / H 212 4.3 26 0.90 \ JUL 09 07:07 \ L 12.9 / H 11.4 364 / L 39.3 \, No Radiology Results Found. Impression and Plan - Hemoptysis. blood culture [...] Sequential compression device Code status: Full code Dr. Wise Pulmonary in room Long discussion with patient Will start Dunebs breathing treatment Pulmicort Nebs ID is following Anticipate discharge i 1 day if continues to improve Time spent: 32 minutes documented in this encounter Plan of Treatment Not on file documented as of this encounter Visit Diagnoses Not on filedocumented in this encounter Additional Health Concerns Infection Onset Date Last Indicated Resolved Time MRSA (C) 06/11/2023 06/11/2023 documented as of this encounter Care Teams Cut Off Machine Helper Relationship Specialty Start Date End Date Annalise Carter, DO [address] [facility] [address] [place] [address] PCP - General Family Medicine 06/06/23 Chuck Mei PA-C [address], [place] [address] [place] [address] Cardiology 11/01/23 documented as of this encounter
--- OUTSIDE RECORDS SUMMARY | 2025-05-05 12:26 | XMS_ITS | Encounter Summary ---
Author Organization [employer] ([place], [place], [place], [place]) Address [address] [place] [address] Care Team Providers Care Glue Maker Name Role Phone Annalise Carter DO Primary Care Provider [phone] Chuck Mei PA-C Unavailable [phone] Encounter Details Date Type Department Care Team (Late st Contact Info) Description 05/23/2020 Transcribed Document [facility] [place] Family Medicine [address] [place] [address] ProviderLars MD [address] [place], [place] [address] Social History Tobacco Use Types Packs/Day Years [...] Conversion Note - Lars ProviderMD - 05/23/2020 4:53 PM CDT Rapid Response Team Documentation Entered On: 05/23/2020 16:54 EDT Performed On: 05/23/2020 16:53 EDT by ALYSIA OLIVAS RN Rapid Response Event Time Rapid Response Team Called : 05/23/2020 8:28 EDT Rapid Response Team Initiation Reason : Other: CODE SEPSIS Rapid Response Event Location Type : Other: ER 18 Rapid Response Team Initiation Reason Details : Code Sepsis initiated in ER by ER team Rapid Response Admission Diagnosis : 2019-nCoV acute respiratory disease Hypokalemia Pneumonia, unspecified organism Pneumonia, unspecified organism Pneumonia, unspecified organism Sepsis, unspecified organism Sepsis, unspecified organism Shortness of breath Rapid Response Medical Background : Arthritis (Patient Stated) CAD - Coronary artery disease (Medical) Cataract (Patient Stated) Chronic anxiety (Patient Stated) Chronic depression (Patient Stated) Coronary artery disease (Patient Stated) Diabetes mellitus (Medical) Diabetes mellitus type II (Patient Stated) Disorder of prostate (Patient Stated) Glaucoma (Patient Stated) HLD - Hyperlipidemia (Medical) HTN (hypertension) (Medical) Hard of hearing (Patient Stated) Heart valve (Patient Stated) Hyperlipidemia (Patient Stated) Hypertension (Patient Stated) Pneumonia (Patient Stated) Renal calculus (Patient Stated) Sleep apnea (Patient Stated) Stented coronary artery (Patient Stated) Rapid Response Allergies : Substance Category Reactions Severity morphine Drug Rapid Response Recent Vital Signs : 05/23/2020 12:30 Systolic Blood Pressure 168 05/23/2020 12:30 Diastolic Blood Pressure 77 05/23/2020 15:41 Heart Rate Monitored 96 05/23/2020 12:11 Heart Rate, Apical 104 05/23/2020 15:41 Respiratory Rate 31 05/23/2020 08:17 Temperature, Fahrenheit 99.5 05/23/2020 15:41 Oxygen Saturation 93 Rapid Response Recent Lab Results : 05/23/2020 08:29 Sodium Level 142 (136-146) 05/23/2020 15:06 Potassium Level 3.8 (3.5-5.1) 05/23/2020 15:03 Calcium Ionized LOW 1.06 (1.12-1.32) 05/23/2020 08:29 Calcium Level LOW 7.3 (8.4-10.1) 05/23/2020 09:26 Magnesium Level 1.5 (1.5-2.4) 05/23/2020 12:18 Glucose POC2 HI 179 (70-110) 05/23/2020 08:29 Chloride Level HI 115 (102-112) 05/23/2020 08:29 Carbon Dioxide Level 21 (21-32) 05/23/2020 08:29 Blood Urea Nitrogen 16 (7-22) 05/23/2020 08:29 Creatinine Level 1.00 (0.70-1.30) 05/23/2020 15:03 PT 10.8 (9.6-12.0) 05/23/2020 15:03 INR 1.0 (0.9-1.1) 05/23/2020 11:12 PTT 32.4 (24.0-34.0) 05/23/2020 08:29 Hgb 13.6 (13.5-17.3) 05/23/2020 08:29 Hct 41.3 (40.1-51.0) 05/23/2020 08:29 RBC 4.51 (4.20-5.70) 05/23/2020 08:29 WBC 9.5 (3.6-9.5) 05/23/2020 08:29 Platelet Count 185 (163-369) 05/23/2020 08:29 Lactic Acid Level 1.5 (0.4-2.0) 05/23/2020 08:29 Troponin I Ultra <0.015 (0.015-0.045) 05/23/2020 15:25 pH Art HI 7.46 (7.35-7.45) 05/23/2020 15:25 pCO2 Art LOW 29.4 (35.0-45.0) 05/23/2020 15:25 pO2 Art LOW 66.8 (80.0-100.0) 05/23/2020 15:25 HCO3 Art 20.8 (20.0-26.0) 05/23/2020 15:25 BE Art LOW -2.1 (-2.0-2.0) 05/23/2020 15:25 sO2 Art LOW 94.3 (95.0-100.0) Weight/BMI : Clinical Weight/BMI CLINICALWEIGHT: 101.82 kg (05/23/20 08:17:00) Body Mass Index: 33.1 kg/m2 High (05/23/20 08:17:00) ALYSIA OLIVAS RN - 05/23/2020 16:53 EDT documented in this encounter Plan of Treatment Not on file documented as of this encounter Visit Diagnoses Not on filedocumented in this encounter Additional Health Concerns Infection Onset Date Last Indicated Resolved Time MRSA (C) 06/11/2023 06/11/2023 documented as of this encounter Care Teams Glue Maker Relationship Specialty Start Date End Date Annalise Carter, [address] [place] [address] PCP - General Family Medicine 06/06/23 Chuck Mei PA-C [address], [facility] [address] [place] [address] Cardiology 11/01/23 documented as of this encounter
--- OUTSIDE RECORDS SUMMARY | 2025-05-05 12:26 | XMS_ITS | Encounter Summary ---
Author Organization [email or web address] ([place], [place], [place], [place]) Address [address] [place] [address] Care Team Providers Care Tube Puller Name Role Phone Annalise Carter DO Primary Care Provider [phone] Chuck Mei PA-C Unavailable [phone] Encounter Details Date Type Department Care Team (Late st Contact Info) Description 05/23/2020 Transcribed Document [facility] [place] Family Medicine [facility] [place] [address] ProviderLars MD [address] [place] [address] Social History Tobacco Use Types [...] Conversion Note - Lars ProviderMD - 05/23/2020 5:30 PM CDT ED Event Note Entered On: 05/23/2020 18:05 EDT Performed On: 05/23/2020 17:30 EDT by LES SULLIVAN RN ED Event Note ED Event Date/Time : 05/23/2020 17:30 EDT ED Event Location : Assigned room ED Event Details : Nursing assessment additional narrative ED Description of Event : report to accepting RN, will start 2nd iv and give Mag Ox plus check fsbg prior to transport, plasma and antiviral will be started in ICU, all agreeable to plan of care. LES SULLIVAN, RN - 05/23/2020 18:03 EDT Electronically signed by [facility] Conversion Unload Associate Cerner at 12/27/2022 12:11 PM CDT documented in this encounter Plan of Treatment Not on file documented as of this encounter Visit Diagnoses Not on filedocumented in this encounter Additional Health Concerns Infection Onset Date Last Indicated Resolved Time MRSA (C) 06/11/2023 06/11/2023 documented as of this encounter Care Teams Tube Puller Relationship Specialty Start Date End Date Annalise Carter, DO [address] [facility] [address] [place] [address] PCP - General Family Medicine 06/06/23 Chuck Mei PA-C [address], [facility] [address] [place] [address] Cardiology 11/01/23 documented as of this encounter
--- OUTSIDE RECORDS SUMMARY | 2025-05-05 12:26 | XMS_ITS | Encounter Summary ---
Author Organization [employer] ([place], [place], [place], [place]) Address [address] [place] [address] Care Team Providers Care Manager Digital Ad Operations Name Role Phone Annalise Carter DO Primary Care Provider [phone] Chuck Mei PA-C Unavailable [phone] Encounter Details Date Type Department Care Team (Late st Contact Info) Description 05/23/2020 Transcribed Document [facility] [place] [address] [place] [address] ProviderLars MD [address] [place] [address] Social History Tobacco Use Types [...] Conversion Note - Lars ProviderMD - 05/23/2020 10:21 PM CDT Patient: ROSARIO GREGG Age: 59 years Sex: Male : 1960 Associated Diagnoses: None Author: LAINA BRADLEY MD SJM Pulmonary CCM Consultation Note Requesting: Dr. Billings Reason: COVID-19 Basic Information CC: I am breathing better in the last hour HPI: 59-year-old male who has past medical history of CAD with stents and CABG, DM, HTN, HLP, Depression, Anxiety, stated sleep apnea, and BPH who tested positive for COVID 19 this past Monday in [place], [place]. He presented to ER with shortness [...] No TB exposure Review of Systems Constitutional: Weakness, Fatigue, No fever, No chills. Eye: No visual disturbances. Ear/Nose/Mouth/Throat: loss of taste and smell, No sore throat. Respiratory: Shortness of breath, Cough, No sputum production, No hemoptysis, No wheezing. Cardiovascular: No [...] Nebulized Inhalation, RT_Q3H, PRN: Shortness of Breath Lantus: 15 Units, SubCutaneous, BID Lasix: 20 mg, IV Push, BID Lovenox: 40 mg, SubCutaneous, At Bedtime Mucinex: 600 mg, Oral, BID Nitrostat: 0.4 mg, SubLINgual, Q5Min, PRN: Chest Pain Normal Saline Flush: 10 mL, IV Push, See Comment Pepcid: 20 mg, Oral, BID Tylenol: 650 mg, Oral, Q4H, PRN: Pain (Mild 1-3) Zofran: 4 mg, IV Push, Q4H, PRN: Nausea/Vomiting cefTRIAXone: 2 Gram, 100 mL/Hr, IV Piggyback, R19UIml dexamethasone: 6 mg, Oral, Daily doxycycline: 100 mg, Oral, BID formoterol-mometasone 5 mcg-200 mcg/inh inhalation aerosol: 2 Puff, Inhalation, BID insulin lispro sliding scale: Scale D:, SubCutaneous, AC and at Bedtime labetalol: 10 mg, IV Push, Q3H, PRN: Hypertension potassium chloride extended release: 20 mEq, Oral, QID remdesivir: 250 mL/Hr, IV Piggyback, [id number] traMADol: 25 mg, Oral, Q6H, PRN: Pain (Moderate 4-6) Pending Complete magnesium oxide: 800 mg, Oral, TID Prescriptions Prescribed Brilinta (ticagrelor) 90 mg oral [...] Oral, Daily, 30 Cap, 0 Refill(s), Medications (20) Active Scheduled: (14) #NaCl 0.9% *FLUSH* inj 10 mL 10 mL, IV Push, See Comment albuterol-ipratropium CFC free 4 g inh 1 Puff, Inhalation, RT_QID cefTRIAXone 2 Gram, IV Piggyback, G17HSuw dexamethasone 4 mg tab 6 mg 1.5 [...] Tab, Oral, QID remdesivir , IV Piggyback, H55MTle Continuous: (0) PRN: (6) acetaminophen 325 mg [...] - Coronary artery disease / SNOMED CT 6037869768 / Confirmed HTN (hypertension) / SNOMED CT [id number] / Confirmed HLD - Hyperlipidemia / SNOMED CT [id number] / Confirmed Diabetes mellitus / SNOMED CT 238772694 / Confirmed History of obstructive sleep apnea / IMO [id number] / Confirmed, Active Problems (21) Arthritis CAD [...] hrs) Last Charted Minimum Maximum Temp 99.5 ([facility] [place] 08:17) 99.5 ([facility] [place] 12 08:17) 99.5 ([facility] [place] 08:17) Apical HR H 104 ([facility] [place] 12 12:11) H 104 ([facility] [place] 12 12:11) H 104 ([facility] [place] 12 12:11) Mon HR 91 ([facility] [place] 12 21:15) 86 ([facility] [place] 12 20:30) 116 ([facility] [place] 12 14:00) Periph HR 109 ([facility] [place] 12 08:17) 109 ([facility] [place] 12 08:17) 109 ([facility] [place] 12 08:17) Resp Rate H 22 ([facility] [place] 21:15) L 7 ([facility] [place] 12 13:00) H 44 ([facility] [place] 12 19:00) SBP 117 ([facility] [place] 12 21:15) 116 ([facility] [place] 12 15:00) H 193 ([facility] [place] 12 13:00) DBP 67 ([facility] [place] 12 21:15) L 58 ([facility] [place] 12 18:00) H 117 ([facility] [place] 12 13:00) MAP 86 ([facility] [place] 12 21:15) 80 ([facility] [place] 12 18:00) 137 ([facility] [place] 12 13:00) SpO2 94 ([facility] 21:15) L 84 ([facility] [place] 12 19:00) 95 ([facility] [place] 12 08:30) General: Alert and oriented, Mild distress. [...] 23) HB 13.6 (MAY 23) HCT 41.3 (MAY 23) Plt 185 (MAY 23) Na 142 (MAY 23) K 3.8 (MAY 23) L 2.9 (MAY 23) Cl H 115 (MAY 23) CO2 21 (MAY 23) BUN 16 (MAY 23) Cr 1.00 (MAY 23) Glu R H 140 (MAY 23) Ca L 7.3 (MAY 23) Lactic 1.5 (MAY 23) PT 10.8 (MAY 23) 10.9 (MAY 23) INR 1.0 (MAY 23) 1.0 (MAY 23) PTT 32.4 (MAY 23) AST 22 (MAY 23) ALT 27 (MAY 23) ALK P 63 (MAY 23) T Bili 0.5 (MAY 23) PTN 6.4 (MAY 23) ALB L 2.6 (MAY 23) Troponin <0.015 (MAY 23) . No qualifying data available Blood Gases (Current Encounter/Past 24 Hours) pH Art 7.46 HI 05/23/2020 21:28 pCO2 Art 29.4 LOW 05/23/2020 21:28 pO2 Art 66.8 LOW 05/23/2020 21:29 HCO3 Art 20.8 05/23/2020 15:35 BE Art -2.1 LOW 05/23/2020 21:29 sO2 Art 94.3 LOW 05/23/2020 21:29 tHb Art 13.1 05/23/2020 15:35 FHHb 5.6 NA 05/23/2020 15:35 ctO2 17.1 NA 05/23/2020 15:35 Delivery Device Type Art Cannula NA 05/23/2020 15:35 Temperature, F Art 98.6 NA 05/23/2020 15:35 Art Blood Gas (ABG) Site Right Radial 05/23/2020 15:35 Acceptable Lincoln's Test Art Acceptable NA 05/23/2020 15:35 Ventilator Mode Art N/A NA 05/23/2020 15:35 Oxygen Flow Rate Art 4.0 NA 05/23/2020 15:35 ABG Num of Draw Attempts 1 NA 05/23/2020 15:35 Radiology Results (Last 48 hours) [id number] -- 05/23/2020 09:33 CR Chest 1 Vw [...] above final transcribed report. Impression and Plan Acute Hypoxic Respiratory Failure: COVID-19 Pneumonia Diffuse airspace and interstitial infiltrates Small bilateral pleural effusions Sleep Apnea not treated Previous smoker Cardiac: Negative troponin Normal BNP H/O CAD with CABG and stents ID: COVID -19 pneumonia Renal: Hypokalemia Endo: DM PLAN: Oxygen supplementation to keep sat 92-96% Combivent one puff QID ABG now CXR noted ECHO pending COVID -19 set Repeat K level Mag being replaced by primary team Mucinex 600 mg po BID Cardiology consult pending Lasix 20 mg IV BID per primary team Anbx: ID following Doxy/Rocephin BC pending Dexamethasone per ID 6 mg IV daily Remdesivir and Convalescence plasma per ID GI prophylaxis: Pepcid DVT prophylaxis: Lovenox Glycemic control: SSI / Lantus Admit to ICU Am labs and imaging FULL CODE I have personally evaluated the patient; history and review of systems, physical examination, laboratory studies and radiology data. I have actively directed the medical care, formulated diagnosis and plan and discussed it with our team. I have seen and examined the patient in the afternoon when he was in the EC, he reported intense fatigue, chills, subjective fever, dry cough and worsening shortness of breath. Patient was tested on Monday. When the patient in ER, he was on 2 L he progressively got worse and required 6 L/min in late afternoon. We sent blood glucose/type, LDH, CRP, and ferritin. Will start Remdesivir and COVID-19 convulsant plasma. Chest x-ray showed bilateral alveolar infiltrates. Patient was assigned to the floor but I changed it to the ICU status. Approximately at 8:30 PM, the patient in the ICU, when I reassessed him, he was more hypoxic requiring FiO2 100% via nonrebreather. Therefore, we started BiPAP therapy to be alternated OptiFlow if he continued to get worse he will require to be intubated and placed on mechanical ventilation. Prognosis: guarded Full code Critically ill, significantly hypoxic, at risk for intubation mechanical ventilation,. A complex case, requires frequent assessments and high level of decision making. Critical care time spent on this patient is 76 minutes documented in this encounter Plan of Treatment Not on file documented as of this encounter Visit Diagnoses Not on filedocumented in this encounter Additional Health Concerns Infection Onset Date Last Indicated Resolved Time MRSA (C) 06/11/2023 06/11/2023 documented as of this encounter Care Teams Manager Digital Ad Operations Relationship Specialty Start Date End Date Annalise Carter, DO [address] [facility] [address] [place] [address] PCP - General Family Medicine 06/06/23 Chuck Mei PA-C [address] , [facility] [address] [place] [address] Cardiology 11/01/23 documented as of this encounter
--- OUTSIDE RECORDS SUMMARY | 2025-05-05 12:27 | XMS_ITS | Encounter Summary ---
Author Organization [employer] ([place], [place], [place], [place]) Address [address] [place] [address] Care Team Providers Care Financial Quantitative Analyst Name Role Phone Annalise Carter DO Primary Care Provider Chuck Mei PA-C Unavailable [phone] Encounter Details Date Type Department Care Team (Late st Contact Info) Description 05/23/2020 Transcribed Document [facility] [place] [facility] [place] [place] [address] ProviderLars MD [address] [place], [place] [address] Social History Tobacco Use Types Packs/Day Years [...] Conversion Note - Historical ProviderMD - 05/23/2020 9:57 AM CDT Consult Phone Call Documentation Entered On: 05/23/2020 18:17 EDT Performed On: 05/23/2020 9:57 EDT by Federico Landon Mechanical Maintenance-Health Unit Coord Phone Call for Consults Consult Phone Call/Page Attempt : First call Federico Landon Mechanical Maintenance-Health Unit Coord - 05/23/2020 18:17 EDT documented in this encounter Plan of Treatment Not on file documented as of this encounter Visit Diagnoses Not on filedocumented in this encounter Additional Health Concerns Infection Onset Date Last Indicated Resolved Time MRSA (C) 06/11/2023 06/11/2023 documented as of this encounter Care Teams Financial Quantitative Analyst Relationship Specialty Start Date End Date Annalise Carter DO [address] [facility] [address] [place] [address] PCP - General Family Medicine 06/06/23 Chuck Mei PA-C [address], [facility] [address] [place] [address] Cardiology 11/01/23 documented as of this encounter
--- NOTE | 2025-05-05 12:49 | PC.NURSE ---
pt. stated they did not need anything at this time
[2025-05-05 13:00] VITALS: BP 91/58; PULSE 72; RESP 14; O2SAT 99
--- NOTE | 2025-05-05 13:08 | CT_ITS ---
PROCEDURE INFORMATION: Exam: CT Lumbar Spine Without Contrast Exam date and time: 05/05/2025 1:39 PM Age: 64 years old Clinical indication: Low back pain; Additional info: Fall right-sided back pain/rib pain, fall x 1 month ago TECHNIQUE: Imaging protocol: Computed tomography of the lumbar spine without contrast. Radiation optimization: All CT scans at this facility use at least one of these dose optimization techniques: automated exposure control; mA and/or kV adjustment per patient size (includes targeted exams where dose is matched to clinical indication); or iterative reconstruction. COMPARISON: CT THORACIC SPINE WO CON 05/05/2025 1:36 PM FINDINGS: Bones/joints: There is preservation of vertebral alignment. There is preservation of vertebral body heights. Facet joints are aligned. No acute fracture. L1-L2: No significant disc bulge or herniation. No severe spinal canal stenosis. No significant neural foraminal narrowing. L2-L3: No significant disc bulge or herniation. No severe spinal canal stenosis. No significant neural foraminal narrowing. L3-L4: No significant disc bulge or herniation. No severe spinal canal stenosis. No significant neural foraminal narrowing. L4-L5: Diffuse disc bulge and facet arthropathy noted. No significant spinal canal stenosis. There is moderate bilateral neural foraminal narrowing. L5-S1: No significant disc bulge or herniation. No severe spinal canal stenosis. No significant neural foraminal narrowing. Soft tissues: Unremarkable. IMPRESSION: 1. No acute fracture. No traumatic subluxation. 2. There is moderate bilateral neural foraminal narrowing at L4-L5 level.
--- NOTE | 2025-05-05 13:08 | CT_ITS ---
PROCEDURE INFORMATION: Exam: CT Thoracic Spine Without Contrast Exam date and time: 05/05/2025 1:36 PM Age: 64 years old Clinical indication: Pain in thoracic spine; Additional info: Fall right-sided back/rib pain TECHNIQUE: Imaging protocol: Computed tomography of the thoracic spine without contrast. Radiation optimization: All CT scans at this facility use at least one of these dose optimization techniques: automated exposure control; mA and/or kV adjustment per patient size (includes targeted exams where dose is matched to clinical indication); or iterative reconstruction. COMPARISON: CT THORACIC SPINE WO CON 05/05/2025 1:36 PM FINDINGS: Bones/joints: There is preservation of vertebral alignment and vertebral body heights. Facet joints are aligned. No acute fracture. There is no significant osseous encroachment of the spinal canal or neural foraminal narrowing at any level. Soft tissues: Unremarkable. IMPRESSION: No acute fracture. No traumatic subluxation.
--- NOTE | 2025-05-05 13:08 | CT_ITS ---
PROCEDURE INFORMATION: Exam: CT Chest Without Contrast; Diagnostic Exam date and time: 05/05/2025 1:34 PM Age: 64 years old Clinical indication: Pain; Right-sided; Additional info: RT sided rib pain after fall TECHNIQUE: Imaging protocol: Diagnostic computed tomography of the chest without contrast. Radiation optimization: All CT scans at this facility use at least one of these dose optimization techniques: automated exposure control; mA and/or kV adjustment per patient size (includes targeted exams where dose is matched to clinical indication); or iterative reconstruction. COMPARISON: CT CHEST WO CON 05/05/2025 1:34 PM FINDINGS: Limitations: The absence of intravenous contrast limits the assessment of vascular structures, lesions and lymphadenopathy. Lungs: There are several scattered pulmonary nodules. The greatest in size measures 7 mm in the right lower lobe (4/47). Subtle regions of mosaic attenuation with lower lobe gradient noted. No evidence of consolidation or interlobular septal thickening. Pleural spaces: Unremarkable. No pneumothorax. No pleural effusion. Heart: Unremarkable. No cardiomegaly. No pericardial effusion. Coronary arteries: Postoperative changes from prior coronary artery bypass graft. Lymph nodes: No evidence of hilar or mediastinal lymphadenopathy within the limits of noncontrast exam. Vasculature: Aorta is nonaneurysmal. Bones/joints: Sternotomy wires are intact. No acute osseous abnormality. Soft tissues: There is a 3.2 cm cyst in the posterior right upper soft tissues IMPRESSION: 1. There are several scattered pulmonary nodules. The greatest in size measures 7 mm in the right lower lobe (4/47). For patients at low risk (minimal or absent history of smoking and of other known risk factors), recommend CT Chest at 3-6 months, then consider CT Chest at 18-24 months. For patients at high risk (history of smoking or of other known risk factors), recommend CT Chest at 3-6 months, then CT Chest at 18-24 months. (Reference: Ozzie) 2. No acute osseous abnormality REFERENCES: Ozzie Pardo, et al. Guidelines for Management of Incidental Pulmonary Nodules Detected on CT Images: From the Fleischner Society 2017. Radiology. 2017;284(1):228-243.
[2025-05-05] MEDS: METHOCARBAMOL 500MG TABLET 750 MG PO (13:26)
--- NOTE | 2025-05-05 13:28 | ECG_ITS ---
APPROVED REPORT Exam: Resting ECG HR:67 bpm ECG Measurements Heart Rate 67 AXES NV 174 P 51 QRSd 101 QRS -39 QT 385 T 22 QTc 400 Conclusion SINUS RHYTHM LEFT AXIS DEVIATION [QRS AXIS < -30] VOLTAGE CRITERIA FOR LVH [MEETS CRITERIA IN ONE OF: R(aVL), S(V1), R(V5), R(V5/V6)+S(V1)] ABNORMAL ECG UNCONFIRMED REPORT Electronically signed by : MUNIRA DORADO, 05/05/2025 23:11:20
[2025-05-05 13:29] LABS: Microscopic, Urine URINE MICROSCOPIC (MICROSCOPIC)
[2025-05-05 13:31] LABS: Bilirubin,Urine Negative (Negative); Color,Urine YELLOW (Yellow); Glucose,Urine (UA) TRACE (Negative); Hematocrit 40.0 % (42.0-52.0); Hemoglobin 13.5 g/dL (14.1-18.0); Immature Granulocytes % 0.3 %; Ketones,Urine Negative (Negative); Leukocyte Esterase,Urine Negative (Negative); Mean Corpuscular HGB Conc 33.8 g/dL (31.8-35.4); Mean Corpuscular Hemoglobin 30.1 pg (27.0-31.2); Mean Corpuscular Volume 89.1 fl (80-94); Nucleated Red Blood Cells % 0 %; PH,Urine 6.0 (5.0-8.5); Platelet Count 222 K/mm3 (142-424); Protein,Urine Negative (Negative); Red Blood Count 4.49 M/mm3 (4.60-6.20); Red Cell Distribution Width-SD 45.0 fL; Specific Gravity, Urine 1.020 (1.005-1.030); Urobilinogen,Urine 0.2 EU/dl (0.2); White Blood Count 7.6 K/mm3 (4.8-10.8)
[2025-05-05 13:43] LABS: Albumin Level 4.0 g/dl (3.5-5.0); Chloride 111 mmol/L (98-107); Sodium 142 mmol/L (136-145)
[2025-05-05 13:44] LABS: Potassium 4.6 mmoL/L (3.5-5.1)
[2025-05-05 13:46] LABS: Alanine Aminotransferase 15 U/L (12-78); Albumin/Globulin Ratio 1.4 (1.1-1.8); Alkaline Phosphatase 84 U/L (38-126); Anion Gap 11.6 mEq/L (5-15); Aspartate Amino Transferase 22 U/L (17-59); Bilirubin,Total 0.3 mg/dl (0.2-1.3); Blood Urea Nitrogen 13 mg/dl (9-20); Calcium 8.9 mg/dl (8.4-10.2); Carbon Dioxide 24 mmol/L (22.0-30.0); Creatinine Clearance Estimated 90 mL/min (50-200); Creatinine,Serum 1.00 mg/dl (0.66-1.25); Estimated Glomerular Filt Rate 75 ml/min (>60); GFR (African American) 90 ML/MIN (>60); Globulin 2.9 g/dL (1.3-3.2); Glucose 138 mg/dl (74-100); Total Protein,Serum 6.9 g/dl (6.3-8.2)
[2025-05-05 13:56] LABS: NT Pro Brain Natriuretic Pep. 499 pg/mL (0-125)
[2025-05-05 14:08] LABS: Troponin I < 0.01 ng/ml (0.00-0.034)
[2025-05-05 14:09] LABS: Lipase 1059 U/L (23-300)
--- NOTE | 2025-05-05 14:11 | CT_ITS ---
PROCEDURE INFORMATION: Exam: CT Abdomen And Pelvis With Contrast Exam date and time: 05/05/2025 2:32 PM Age: 64 years old Clinical indication: Abdominal pain; Other: RT side; Additional info: Right sided upper abd pain, elevated lipase TECHNIQUE: Imaging protocol: Computed tomography of the abdomen and pelvis with contrast. Radiation optimization: All CT scans at this facility use at least one of these dose optimization techniques: automated exposure control; mA and/or kV adjustment per patient size (includes targeted exams where dose is matched to clinical indication); or iterative reconstruction. Contrast material: ISOVUE; Contrast volume: 75 ml; Contrast route: IV; COMPARISON: CT ABDOMEN PELVIS W CON 02/02/2025 6:02 PM FINDINGS: Lungs: There is a 5 mm right lower lobe nodule (3/8). Liver: Hepatic steatosis noted. No focal hepatic lesions. Gallbladder and biliary ducts: Gallbladder is distended without radiopaque cholelithiasis. No biliary ductal dilation. Pancreas: No main pancreatic duct dilation. There is no significant peripancreatic stranding. No discrete peripancreatic collections. There is minimal stranding along the left anterior pararenal space. Spleen: Normal. No splenomegaly. Adrenal glands: Normal. No mass. Kidneys and ureters: Nephrograms are symmetric. No nephrolithiasis or hydroureteronephrosis on either side. No solid lesions. Scattered subcentimeter hypodensities in both kidneys are too small to accurately characterize. Stomach and bowel: No bowel wall thickening or distention. Scattered colonic diverticula without acute inflammatory change. Appendix: A normal appendix is identified. Intraperitoneal space: There is no evidence of free intraperitoneal or pelvic fluid. Vasculature: The aorta demonstrates moderate atherosclerotic calcification. Portal vein is patent. Lymph nodes: No evidence of retroperitoneal or mesenteric lymphadenopathy. Urinary bladder: Unremarkable as visualized. Reproductive: Prostate is enlarged measuring 4.9 x 6.1 x 6.8 cm. There is hypertrophy of the median prostatic lobe. Bones/joints: Unremarkable. No acute fracture. Soft tissues: Unremarkable. IMPRESSION: 1. No main pancreatic duct dilation. There is minimal stranding along the left anterior pararenal space. While not significant peripancreatic stranding, stranding along the pararenal space can be seen in the context of acute edematous interstitial pancreatitis. Correlate clinically. 2. There is a 5 mm right lower lobe nodule (3/8). For patients at low risk (minimal or absent history of smoking and of other known risk factors), no routine follow-up is indicated. For patients at high risk (history of smoking or of other known risk factors), consider optional CT Chest at 12 months. (Reference: Ozzie) COMMENTS: Consistent with the [place] [employer]'s Incidental Findings Committee white paper (J Am Breanna Radiol 2018): Any incidental renal lesion less than 1 cm or classified as too small to characterize, or any incidental cystic renal lesion characterized as simple-appearing, is likely benign. No follow-up imaging is recommended for these lesions per consensus recommendations based on imaging criteria. REFERENCES: Ozzie Pardo, et al. Guidelines for Management of Incidental Pulmonary Nodules Detected on CT Images: From the Fleischner Society 2017. Radiology. 2017;284(1):228-243.
--- NOTE | 2025-05-05 14:26 | PC.NURSE ---
pt to ct scan via ambulatory
[2025-05-05] MEDS: IOPAMIDOL-370 (76%);100ML BOTTLE 75 ML IV (14:34)
[2025-05-05] MEDS: SODIUM CHLORIDE 0.9% 10ML SYR (RAD ONLY) 10 ML IV (14:34)
[2025-05-05 14:37] LABS: Bacteria,Urine Trace /lpf; Squamous Epithelial Cell,Urine Occasional #/hpf (0-5); WBC,Urine Occasional #/hpf (0-3)
--- NOTE | 2025-05-05 14:47 | PC.NURSE ---
placed pt r leg in boot and showed to how to put on and take off.
[2025-05-05 15:36] VITALS: BP 135/76; PULSE 85; RESP 16; TEMP 36.7; O2SAT 99
== END 2025-05-05 15:37 | disposition home or self-care (01) ==
PROVIDERS: Physician Assistant; Emergency Provider Student in an Organized Health Care Education/Training Program; PCP Family Medicine
DX: S29.9XXA Unspecified injury of thorax, initial encounter (principal); S39.92XA Unspecified injury of lower back, initial encounter; W19.XXXA Unspecified fall, initial encounter; K85.90 Acute pancreatitis without necrosis or infection, unspecified
CPT/HCPCS: 71250; 72128; 72131; 74177; 80053; 81001; 83690; 83880; 84484; 85025; 93005; 99284; 99285; Q9967

== ENCOUNTER 2025-05-26 17:05 | Emergency (ER) | payer MEDICARE, SELFPAY ==
--- NOTE | 2025-05-26 17:14 | [facility].EDGENADL ---
Discharge Plan Disposition Patient Disposition: Home, Self-Care Condition: Good Prescriptions Prescriptions: No Action insulin glargine [Lantus U-100 Insulin] 100 unit/mL solution 40 unit SQ BID Patient Comments: INJECT 40 UNITS INTO THE SKIN TWICE DAILY ibuprofen 800 mg tablet 800 mg PO Q8H PRN hydroxyzine HCl 50 mg tablet 50 mg PO HS PRN Patient Comments: TAKE 1 TABLET BY MOUTH EVERY EVENING NEEDED FOR INSOMNIA metformin 1,000 mg tablet 1,000 mg PO BID Patient Comments: TAKE 1 TABLET BY MOUTH TWICE A DAY ropinirole 0.5 mg tablet 0.5 mg PO PRN Patient Comments: PLEASE SEE ATTACHED FOR DETAILED DIRECTIONS metoprolol tartrate 50 mg tablet 50 mg PO BID Patient Comments: TAKE 1 TABLET BY MOUTH TWICE A DAY montelukast 10 mg tablet 10 mg PO HS gabapentin 100 mg capsule 200 mg PO TID Patient Comments: TAKE TWO CAPSULES BY MOUTH THREE TIMES A DAY Creon 36,000-114,000- 180,000 unit capsule,delayed release(DR/EC) 1 cap PO QID Patient Comments: TAKE 1 CAPSULE BY MOUTH WITH EVERY MEAL Trulicity 0.75 mg/0.5 mL pen injector 0.75 mg SQ QWEEK Patient Comments: INJECT 0.5ML (0.75MG) INTO THE SKIN ONCE WEEKLY ticagrelor [Brilinta] 60 mg tablet 60 mg PO BID cholecalciferol (vitamin D3) 125 mcg (5,000 unit) capsule 125 mcg PO DAILY omega 5-gpd-zua-fish oil [Fish Oil] 300-1,000 mg capsule 1 cap PO DAILY Jardiance 25 mg tablet 25 mg PO DAILY magnesium aspart,citrate,oxide 400 mg magnesium capsule 500 mg PO DAILY ascorbic acid (vitamin C) 1,000 mg capsule 1,000 mg PO DAILY methocarbamol 750 mg tablet 750 mg PO HS Qty: 30 0RF atorvastatin 20 MG tablet 20 mg PO HS famotidine 20 MG tablet 20 mg PO DAILY aspirin 81 MG tablet,chewable 81 mg PO DAILY lisinopril 5 MG tablet 5 mg PO DAILY Referrals Follow up/Referrals: Annalise Carter [Primary Care Provider, Medical] - See instructions Activity Restrictions/Add. Instructions Additional Instructions/Restrictions: Keep the toe clean with soap and water. Return for any signs of worsening infection such as drainage, severe redness. Follow-up with your primary care provider to help get the callous removed from your toe. Clinical Impressions Clinical Impression: Pain in toe Instructions Patient Instructions: DI for Skin Abscess Print Language Print Language: Italian Discharge ED Provider: Kathy Abbott General Adult HPI General Chief complaint: Skin/Abscess/Foreign Body Stated complaint: L foot bunion cracked open, diabetic Time Seen by Provider: 05/26/25 17:14 History of Present Illness HPI narrative: Patient presents to the emergency department concern for to his left great toe. Patient states that he thinks he has a left great toe. Patient states that he hit it given that he has history of diabetes and was concerned and therefore came here to the emergency department. Patient states that he had some minimal pain, but is able to feel the toe. Related Data Home Medications ?Medication ?Instructions ?Recorded ?Confirmed aspirin 81 mg chewable tablet 81 mg PO DAILY Heart disease 11/07/20 03/26/25 atorvastatin 20 mg tablet 20 mg PO HS Cholesterol 11/07/20 03/26/25 famotidine 20 mg tablet 20 mg PO DAILY GERD 11/07/20 03/26/25 lisinopril 5 mg tablet 5 mg PO DAILY Hypertension 11/07/20 03/26/25 ascorbic acid (vitamin C) 1,000 mg 1,000 mg PO DAILY 03/26/25 03/26/25 capsule cholecalciferol (vitamin D3) 125 125 mcg PO DAILY 03/26/25 03/26/25 mcg (5,000 unit) capsule dulaglutide 0.75 mg/0.5 mL 0.75 mg SQ QWEEK 03/26/25 03/26/25 subcutaneous pen injector (Trulicity) empagliflozin 25 mg tablet 25 mg PO DAILY 03/26/25 03/26/25 (Jardiance) gabapentin 100 mg capsule 200 mg PO TID 03/26/25 03/26/25 hydroxyzine HCl 50 mg tablet 50 mg PO HS PRN 03/26/25 03/26/25 ibuprofen 800 mg tablet 800 mg PO Q8H PRN 03/26/25 03/26/25 insulin glargine 100 unit/mL 40 unit SQ BID 03/26/25 03/26/25 subcutaneous solution (Lantus U-100 Insulin) [id number] 1 cap PO QID 03/26/25 03/26/25 36,000-114,000-180,000 unit capsule,delay rel (Creon) magnesium aspart,citrate,oxide 500 mg PO DAILY 03/26/25 03/26/25 metformin 1,000 mg tablet 1,000 mg PO BID 03/26/25 03/26/25 metoprolol tartrate 50 mg tablet 50 mg PO BID 03/26/25 03/26/25 montelukast 10 mg tablet 10 mg PO HS 03/26/25 03/26/25 omega 1-vxb-mrb-fish oil 300 1 cap PO DAILY 03/26/25 03/26/25 mg-1,000 mg capsule (Fish Oil) ropinirole 0.5 mg tablet 0.5 mg PO PRN 03/26/25 03/26/25 ticagrelor 60 mg tablet (Brilinta) 60 mg PO BID 03/26/25 03/26/25 Previous Rx's ?Medication ?Instructions ?Recorded methocarbamol 750 mg tablet 750 mg PO HS #30 tabs 05/05/25 Allergies Allergy/AdvReac Type Severity Reaction Status Date / Time morphine Allergy Severe Unknown Verified 05/05/25 12:15 allergy reaction [facility] Disclaimer: The information contained in this section may have been updated after the patient was seen, as this information can be updated by other users. Medical History Amputated toe of right foot Sleep apnea Heart disease Diabetes Pancreatitis Surgical History History of coronary artery bypass graft Family History Mother Colon cancer Unknown Stomach cancer Social History Smoking Status: Never smoker alcohol intake: never current occupational status: other Travel in the last 8 weeks?: None Have you lived/traveled outside [place] in past 30 days?: No Contact w/someone who lives/traveled outside [place] past 30 days?: No Exposure to someone with infectious disease in past 14 days?: No Do you have a fever (greater than 100.4 F or 38 C)?: No Have you tested positive for COVID-19?: No Exposed to someone with COVID-19 in past 14 days?: No Do you have a sore throat?: No Do you have a cough?: No Do you have any weakness?: No Do you have any diarrhea?: No Are you experiencing any unusual bleeding?: No Do you have any muscle aches/pain?: No Do you have any abdominal pain?: No Are you experiencing loss of taste or smell?: No Other Medical History Have you received the Flu Vaccine for this season: Yes Have you received the Pneumonia Vaccine: Yes ROS Obtained: Yes All systems reviewed & no additional complaints except as documented and Yes Systems reviewed as appropriate & no additional complaints except as documented Physical Exam General General appearance: alert and in no apparent distress Head Head exam: atraumatic, normocephalic and normal inspection Eye Eye exam: Present normal appearance, PERRL and EOMI; Absent scleral icterus ENT ENT exam: Present normal exam and normal external ear exam Neck Neck exam: Present normal inspection and full ROM Chest Chest inspection: Present normal inspection and symmetric chest wall rise Respiratory Respiratory exam: Present normal lung sounds bilaterally; Absent respiratory distress or wheezes Cardiovascular Cardiovascular exam: Present regular rate, normal rhythm and normal heart sounds Abdominal Exam Abdominal exam: Present soft and distention; Absent tenderness, guarding or rebound Extremities Exam Extremities exam: Present normal inspection, full ROM and other (L great toe with a callous on the medial aspect of the toe, minimal bleeding no erythema, or drainage) Back Exam Back exam: Present normal inspection and full ROM Neurological Exam Neurological exam: Present alert and oriented X3 Psychiatric Psychiatric exam: Present normal affect and normal mood Skin Skin exam: Present warm and dry Medical Decision Making Medical Records Medical records reviewed: Yes I reviewed the patient's medical records. Screening: Per USPSTF and CDC recommendations, given the prevalence of disease in our region, it is our hospital?s policy to screen for HIV and viral Hepatitis for all patients aged 18 and over and those with ongoing risk factors. Elliott Inquiry Pt receiving controlled substance: No Vital Signs: 05/26/25 17:15 05/26/25 17:59 Temperature 98.4 F 98.0 F Temperature Source Oral Oral Pulse Rate 80 Pulse Rate [Right Radial] 91 H Respiratory Rate 20 18 Blood Pressure 153/75 H Blood Pressure [Right Arm] 166/73 H Blood Pressure Mean [Right Arm] 104 Blood Pressure Source Automatic Cuff Blood Pressure Source [Right Arm] Automatic Cuff Blood Pressure Position Sitting Blood Pressure Position [Right Arm] Sitting 02 Sat by Pulse Oximetry 96 Oxygen Delivery Method Room Air Room Air Lab Data Lab results reviewed: Yes I reviewed the patient's lab results. Medical Decision Narrative: Patient is a 64-year-old male with history of diabetes who presented to the emergency department with concern for an injury to his left great toe. Patient states that he has a bunion on the side of his toe and he had it started to bleed. On arrival, patient was hemodynamically stable. Differential includes but not limited to: Diabetic foot wound, laceration, fracture, cellulitis, amongst others. Patient had a callus on the left great toe on the medial aspect. There is minimal bleeding. No signs of diabetic foot wound. No concern for fracture at this time, patient full range of motion, no pain. No signs of cellulitis. Patient's minimal callus flap was glued and patient was discharged home in stable condition return precautions were discussed. Critical Care Critical Care Time Critical Care Time: No
--- OUTSIDE RECORDS SUMMARY | 2025-05-26 17:14 | XMS_ITS | Clinical Summary ---
Author Organization [facility] Address [address] [place] [address] Care Team Providers Care Route Rider Name Role Phone Niranjan Cardenas MD Primary Care Provider [phone] Social History Tobacco Use Types Packs/Day Years [...] of Treatment Not on file Care Teams Route Rider Relationship Specialty Start Date End Date Niranjan Cardenas MD [address] [place] [address] [address] [place] [address] PCP - General 01/22/21
--- OUTSIDE RECORDS SUMMARY | 2025-05-26 17:14 | XMS_ITS | Clinical Summary ---
Author Organization [facility] Address [address] [place] [address] Care Team Providers Care Metal Building Assembler Name Role Phone Annalise Carter DO Primary Care Provider [phone] Allergies Active Allergy Reactions Criticality Noted Date [...] increase gabapentin He needs to see a fitness sales consultant and gets special shoes His feet wont' get better unless his sugar gets better. Encounters Date Type Department Care Team Description 03/06/2025 Refill [facility] [address] [address] Rudy Ann MD Uncontrolled diabetes mellitus with [...] 2) 12/23/2019 10/28/2019 AAA SCREEN ONCE 11/21/2023 ANNUAL WELLNESS VISIT 07/03/2024 HEPATITIS C SCREENING 07/03/2024 HEMOGLOBIN A1C 01/01/2025 07/03/2024, 06/09/2023 COVID-19 Vaccine (3 - 2024-2 6 season) 2025 12/30/2020, 11/17/2020 INFLUENZA VACCINE 06/11/2025 06/01/2023, , 06/04/2022, Additional [...] Hemoglobin A1C 11.5(A) 4.5 - 5.7 % [facility] Lot Number [id number] [facility] Expiration Date 02/28/26 [facility] Blood 07/03/2024 1:16 PM EDT Rudy Ann MD POINT OF CARE TEST ORD ERABLES Final Result [facility]
[address] [place] [address], from Last 3 Months or Most Recently Relevant to Health Maintenance Insurance [facility] MEDICARE ADVANTAGE PPO Care Teams Metal Building Assembler Relationship Specialty Start Date End Date Annalies Carter DO [facility] [place] [address] PCP - General Family Medicine 04/04/24
--- OUTSIDE RECORDS SUMMARY | 2025-05-26 17:14 | XMS_ITS | Clinical Summary ---
Author Organization [facility] Address [address] [facility] [address] [place] [address] Phone Care Team Providers Care Night Court Magistrate Name Role Phone Tab Tan MD [phone] Conditions or Problems No information available. Medications No information available. Medications Administered No information available. Allergies, Adverse Reactions, Alerts No information available. Results No information available. Plan of Care No information available. Procedures No information available. Vital Signs No information available. Immunizations No information available. Advance Directives No information available.
[2025-05-26 17:15] VITALS: BP 166/73; PULSE 91; RESP 20; TEMP 36.9; O2SAT 96; BMI 28.6
[2025-05-26 17:59] VITALS: BP 153/75; PULSE 80; RESP 18; TEMP 36.7; O2SAT 98
== END 2025-05-26 18:00 | disposition home or self-care (01) ==
PROVIDERS: Emergency Provider Student in an Organized Health Care Education/Training Program; PCP Family Medicine
DX: M79.675 Pain in left toe(s) (principal); E11.9 Type 2 diabetes mellitus without complications; W22.8XXA Striking against or struck by other objects, initial encounter; Z79.4 Long term (current) use of insulin; Z79.85 Long-term (current) use of injectable non-insulin antidiabetic drugs
CPT/HCPCS: 99283